=== PATIENT | female | born 1945 | race Caucasian/White ===

== ENCOUNTER → 2016-09-15 | Outpatient (REF) | payer MEDICARE | LOC: M LAB REF 13:04 | PROVIDERS: ATTEND Internal Medicine Nephrology | DX: R80.9 Proteinuria, unspecified (principal) ==

== ENCOUNTER 2020-07-13 15:33 | Observation (INO) | payer MEDICARE ==
[~2020-07-13] VITALS: Ht 172.7 cm; Wt 98.7 kg
[2020-07-13] MEDS ORDERED: OMEP40CA97 PO (15:49)
[2020-07-13] MEDS ORDERED: BISO5TAB14 PO (15:49)
[2020-07-13] MEDS ORDERED: JARD1TAB PO (15:49)
[2020-07-13] MEDS ORDERED: ATOR40TA75 PO (15:49)
[2020-07-13] MEDS ORDERED: HYDR25TAB PO (15:49)
[2020-07-13] MEDS ORDERED: ACCU40TA PO ×2 (15:49)
[2020-07-13] MEDS ORDERED: triseba SQ (15:49)
[2020-07-13] MEDS ORDERED: DOXA1TAB67 PO (15:49)
[2020-07-13] MEDS ORDERED: LEVO750T13 PO (15:49)
[2020-07-13] MEDS ORDERED: SERT25TA21 PO (15:49)
[2020-07-13 16:25] LABS: HEMOGLOBIN 14.1 g/dl (12.0-15.5); MEAN CORPUSCULAR HEMOGLOBIN 29.7 pg (27.0-33.0); MEAN CORPUSCULAR HGB CONC 32.8 g/dl (32.0-36.5); MEAN CORPUSCULAR VOLUME 90.7 fl (80.0-96.0); PLATELET COUNT, AUTOMATED 172 10^3/uL (150-450); RED BLOOD COUNT 4.74 10^6/uL (4.00-5.40); WHITE BLOOD COUNT 8.8 10^3/uL (4.0-10.0)
--- OUTSIDE RECORDS SUMMARY | 2020-07-13 16:35 | CCD | Continuity of Care Document ---
Author Author Tova SANDERS D.O. Organization Unknown Address 3 [facility] 3 [place] [address] Phone [phone] Problems Active Problems Provider Date Type 2 diabetes mellitus Onset: 12/02/19 01 Benign essential hypertension Natan Reyes M.D. Onset: 0 09/07/2004 Hyperlipidemia Onset: 12/01/2000 Psoriasis Onset: 12/01/2000 Gastroesophageal reflux disease Natan Reyes M.D. Onset: 12/01/2000 Moderate recurrent major depression Natan Reyes M.D. On set: 10/03/2006 Allergic rhinitis Natan Reyes M.D. Onset: 12/01/2000 Generalized anxiety disorder Natan Reyes M.D. Onset: Panic disorder without agoraphobia Natan Reyes M.D. Ons et: 04/25/2008 Essential hypertension Vianey Barrera FNP- Onset: 015 Psoriatic dactylitis Vianey Barrera [facility]- Onset: 5 Major depressive disorder, recurrent, severe with psyc hotic symptoms Vianey Barrera FNP-JOLENE Onset: 04/24/2015 Diverticulosis of colon without diverticulitis Elvis pham D.O., FAAFP Onset: 02/22/2017 Nonproliferative diabetic retinopathy Elvis Sanders D.O., FAAFP Onset: 09/18/2018 Note: ou Colonoscopy Elvis Sanders D.O., FAAFP Onset: 01/2019 Note: DECLINED HOWEVER NORMAL COLOGUA RD Social History Type Date Description Comments Sex Unknown ETOH Use alcohol use: never used Recreational Drug Use Denies Drug Use Tobacco Use Start: Unknown Patient has never smoked Smoking Status Reviewed: 02/14/20 Patient has never smoked Allergies, Adverse Reactions, Alerts Description No Known Drug Allergies Medications Active Medications SIG Qnty Indications Ordering Provide r Date Jardiance 10mg Tablets 1 by mouth every day 90tabs [facility]2019 B-D Pen NDL SHRT [id number](10/26) Dread 0 Use Daily With Levemir And Humalog 400units Elvis Sanders D.O., FAAFP 02/18/2019 Blood Glucose Test Strips use twice a day and as needed (dx: e11.9) 200units E11.9 Elvis Sanders D.O., FAAFP 12/18/2018 Tresiba Flextouch 20 0Unit/ML Solution Pen-Inject take 78 units twice daily 27ml Elvis Sanders D.O., FAAFP 08/21/2018 Bisoprolol Fumarate 5mg Tablets Take 1 Tablet By Mouth Every Day 30tabs [facility] 05/30/2017 Sertraline HCL 25mg Tablets take 1 tablet by mouth every day 90tabs Elvis Sanders D.O., FAAFP 07/30/2016 BD Pen Hooks Short/Ultrafine/31G X 5/1 6" 31G X 8 mm Misc for use daily with levimir and humalog dx: e11.9 4/day 400un its E11.9 Elvis Sanders D.O., FAAFP 11/22/2014 Accu-Chek Smartview Strips test 2 times a day and as needed e11.9 100units E11.9 Elvis Sanders D.O., F [facility] 09/18/2014 Lancets test bs bid and prn if indicated 300units Vianey Reno [employer]-[facility] 04/25/[address] Take 1 Capsule By Mouth Every Morning. Maximum Daily Dose Is 1 90caps Elvis Sanders D.O., FAAFP 11/20/2012 Atorvastatin Calcium 40mg Tablets Take 1 Tablet By Mouth Every Day. Maximum Daily Dose Is 1. Maximum Daily Dose Is 1 90tabs Elvis Sanders D.O., FAAFP 11/10/2012 Quinapril HCL 40mg Tablets take 1 and 1/2 tablets by mouth every day 135tabs Elvis Sanders D.O. , [facility] 10/23/2012 Hydrochlorothiazide 25mg Tablets Take 1 Tablet By Mouth Every Day. Maximum Daily Dose Is 1. Maximum Daily Dose Is 1 90tabs Elvis Sanders D.O., [facility] 10/09/2012 Doxazosin Mesylate 8mg Tablets take 1 tablet by mouth once daily mdd 1 30tabs Elvis Sanders D.O., [facility] 10/09/2012 Medications Administered in Office Medication SIG Qnty Indications Ordering Provider Date Injection (SC)/(Im) Injection Vianey Barrera [facility] 10/23/2012 Injection (SC)/(Im) Injection Vianey Barrera [facility] 04/20/2012 Injection (SC)/(Im) Injection Vianey Barrera [facility] 03/25/2011 Injection (SC)/(Im) Injection Vianey Barrera [facility] 03/02/2010 Injection (SC)/(Im) Injection Natan Reyes M.D. 03/19/2009 Injection Subcutaneous Or Intramuscular Injection Elvis Sanders D.O., [facility] 03/26/2008 Injection Subcutaneous Or Intramuscular Injection Kiko Aguilar [facility] 01/17 Injection Subcutaneous Or Intramuscular Injection Natan Reyes M.D. 2006 Injection Subcutaneous Or Intramuscular Injection Elvis Sanders D.O., [facility] 04/26/2006 Injection (SC)/(Im) Injection Pierce Inman, DO 03/23/2005 Injection (SC)/(Im) Injection Pierce Inman, DO 03/23/2005 Injection (SC)/(Im) Injection Pierce Inman, DO 03/24/2004 Injection (SC)/(Im) Injection Elvis Sanders D.O., [facility] 04/10/2002 Injection (SC)/(Im) Injection Natan Reyes M.D. 03/15/2001 Immunizations CPT Code Status Date Vaccine Lot # [id number] Given 02/27/2020 Influenza Virus Vaccine, Quadrivalent, Slit Virus, Im Use 3Y & Up [id number] 07557 Given 02/22/2017 Influenza Virus Vaccine, Quadrivalent, Slit Virus, Im Use 3Y & Up [id number] Q2037 Given 02/20/2014 Influenza Vaccin e (Fluvirin) 3Yrs Of Age Or Older Medicare Plans 48080 Given 02/20/2014 Influenza Virus Vac. Split Virus Individuals 3 Years And Above [id number] 55370 Given 03/02/2013 Influenza Vaccin e (Fluzone) 3Yrs Of Age Or Older Medicare Plans 41298 Given 03/02/2013 Influenza Virus Vac. Split Virus Individuals 3 Years And Above [id number] 87041 Given 10/23/2012 [id number] 8[address] Given 04/20/2012 Influenza Vaccin e (Fluzone) 3Yrs Of Age Or Older Medicare Plans 80308 Given 04/20/2012 Influenza Virus Vac. Split Virus Individuals 3 Years And Above [id number] 88130 Given 03/25/2011 Influenza Vaccin e (Fluzone) 3Yrs Of Age Or Older Medicare Plans 09852 Given 03/25/2011 Influenza Virus Vac. Split Virus Individuals 3 Years And Above [id number] 31908 Given 03/02/2010 Influenza Virus Vac. Split Virus Individuals 3 Years And Above 16251 Given 03/19/2009 Influenza Virus Vac. Split Virus Individuals 3 Years And Above [id number] 19323 Given 03/26/2008 Influenza Virus Vac. Split Virus Individuals 3 Years And Above [id number] 01754 Given 03/28/2007 Influenza Virus Vac. Split Virus Individuals 3 Years And Above [id number] 62346 Given 04/26/2006 Influenza Virus Vac. Split Virus Individuals 3 Years And Above 58007 Given 03/23/2005 Pneumococcal Immunization 21944 Given 03/23/2005 Influenza Virus Vac. Split Virus Individuals 3 Years And Above 86180 Given 03/24/2004 Influenza Virus Vac. Split Virus Individuals 3 Years And Above 49134 Given 04/10/2002 Influenza Virus Vac. Whole V irus 85052 Given 04/10/2002 Influenza Virus Vac. Split Virus Individuals 3 Years And Above 13388 Given 03/15/2001 Influenza Immunization 93461 Given 04/07/2000 Influenza Immunization 14900 Given 04/01/1999 Influenza Immunization 24604 Given 04/23/1998 Pneumococcal Immunization 93100 Given 04/23/1998 Influenza Immunization 07198 Given 05/06/1997 Influenza Immunization Vital Signs Date Vital Result Comment 06/18/2020 9:14am BP Systolic 102 mmHg BP Diastolic 52 mmHg Body Temperature 97.9 F Heart Rate 90 /min Respiratory Rate 18 /min Height 66 inches 5'6" Weight 221.00 lb [place] Body Weight 130 lb BMI (Body Mass Index) 35.7 kg/m2 O2 % BldC Oximetry 96 % 04/23/2020 4:14pm BP Systolic 124 mmHg BP Diastolic 64 mmHg Body Temperature 98.2 F Heart Rate 68 /min Respiratory Rate 16 /min Height 66 inches 5'6" Weight 223.00 lb [place] Body Weight 130 lb BMI (Body Mass Index) 36.0 kg/m2 O2 % BldC Oximetry 97 % (AT Rest), (Room Air ) Results Test Acquired Date Facility Test Result H/L Range Note Microalb/Creat Ratio 06/18/2020 [facility] Alb 10 mg/L 1 - 30 Creatinine, Urine 50 mg/dL 10 - 300 A/C Ratio <30 mg/g % Laboratory test finding 06/18/2020 [place] [address] [phone] Hgba1c 8.8 % High 4.4 - 6.1 1 CBC 06/18/2020 [facility] WBC 7.6 10E3/uL 4.1 - 10.9 2 RBC 4.60 10E6/uL 4.20 - 6.30 HGB 14.0 g/dL 12.0 - 18.0 HCT 42.7 % 37.0 - 51.0 MCV 92.8 fL 80.0 - 97.0 MCH 30.4 pg 26.0 - 32.0 MCHC 32.8 g/dL 31.0 - 36.0 PLT 198 10E3/uL 140 - 440 RDW-CV 13.4 % 11.5 - 14.5 Lym% 22.8 % 10.0 - 58.5 Neut% 66.9 % 37.0 - 92.0 MXD% 10.3 % 0.1 - 24.0 Lym# 1.7 10E3/uL 0.6 - 4.1 Neut# 5.1 % 2.0 - 7.8 MXD# 0.8 10E3/uL 0.0 - 1.8 MPV 11.2 fL 9.0 - 13.0 CMP 06/18/2020 [facility] Glu 194 mg/dL High 70 - 110 BUN 26 mg/dL High 8 - 23 Creat 1.2 mg/dL High 0.5 - 1.0 BUN/Creatinine Ratio 22.5 CALC Na 140 mmol/L 136 - 145 K 4.3 mmol/L 3.5 - 5.1 CL 107.5 mmol/L High 98.0 - 107.0 Co2 24.6 mmol/L 22.0 - 29.0 CA 8.6 mg/dL 8.6 - 10.2 TP 6.2 g/dL Low 6.6 - 8.7 Alb 3.9 g/dL 3.4 - 4.8 A/G Ratio 1.6 CALC Globulin 2.4 CALC Alp 68.2 U/L 35 - 129 Alt (SGPT) 16 U/L 0 - 41 Ast (Sgot) 16 U/L 0 - 40 Tbili 0.39 mg/dL 0.0 - 1.2 Osmolality-Calculated 290.0 CALC Anion Gap 12 mmol/L eGFR 51 # Calc 3 eGFR Non-Afr. Palestinian 44 # Calc 4 Laboratory test finding 06/18/2020 [facility] CK 121 U/L 26 - 192 Lipid Panel 06/18/2020 [facility] Chol 146 mg/dL 0 - 200 Trig 142 mg/dL 40 - 200 HDL 41 mg/dL Low 45 - 65 LDL_C 77 Calc 75 - 129 Cho/HDL Ratio 3.5 CALC U/A DIP 06/18/2020 [facility] Color lt yellow QUAL Clarity clear QUAL Glucose-Ua >=1000 g/dL Abnormal Negative Bilirubin,Urine Negative QUAL Negative Ketone Negative mg/dL Negative Blood - Ua Negative QUAL Negative pH 5.5 # 5.0 - 8.0 Protein Negative mg/dL Negative Urobilinogen 0.2 NA 0.2 - 1.0 Nitrite Negative QUAL Negative Leukocyte Negative QUAL Negative CBC 03/11/2020 [facility] WBC 7.0 10E3/uL 4.1 - 10.9 RBC 4.55 10E6/uL 4.20 - 6.30 HGB 13.9 g/dL 12.0 - 18.0 HCT 41.5 % 37.0 - 51.0 MCV 91.2 fL 80.0 - 97.0 MCH 30.5 pg 26.0 - 32.0 MCHC 33.5 g/dL 31.0 - 36.0 PLT 203 10E3/uL 140 - 440 RDW-CV 13.6 % 11.5 - 14.5 Lym% 27.9 % 10.0 - 58.5 Neut% 61.3 % 37.0 - 92.0 MXD% 10.8 % 0.1 - 24.0 Lym# 2.0 10E3/uL 0.6 - 4.1 Neut# 4.2 % 2.0 - 7.8 MXD# 0.8 10E3/uL 0.0 - 1.8 MPV 10.8 fL 9.0 - 13.0 CMP 03/11/2020 [facility] Glu 188 mg/dL High 70 - 110 BUN 18 mg/dL 8 - 23 Creat 0.9 mg/dL 0.5 - 1.0 BUN/Creatinine Ratio 20.5 CALC Na 139 mmol/L 136 - 145 K 4.8 mmol/L 3.5 - 5.1 CL 103.6 mmol/L 98.0 - 107.0 Co2 27.5 mmol/L 22.0 - 29.0 CA 9.3 mg/dL 8.6 - 10.2 TP 6.5 g/dL Low 6.6 - 8.7 Alb 4.0 g/dL 3.4 - 4.8 A/G Ratio 1.6 CALC Globulin 2.5 CALC Alp 72.6 U/L 35 - 129 Alt (SGPT) 18 U/L 0 - 41 Ast (Sgot) 19 U/L 0 - 40 Tbili 0.56 mg/dL 0.0 - 1.2 Osmolality-Calculated 284.8 CALC Anion Gap 13 mmol/L eGFR 72 # Calc 5 eGFR Non-Afr. Palestinian 63 # Calc 6 Laboratory test finding 03/11/2020 [facility] CK 147 U/L 26 - 192 Lipid Panel 03/11/2020 [facility] Chol 165 mg/dL 0 - 200 Trig 115 mg/dL 40 - 200 HDL 48 mg/dL 45 - 65 LDL_C 94 Calc 75 - 129 Cho/HDL Ratio 3.5 CALC U/A DIP 03/11/2020 [facility] Color yellow QUAL Clarity clear QUAL Glucose-Ua Negative g/dL Negative Bilirubin,Urine Negative QUAL Negative Ketone Negative mg/dL Negative Blood - Ua Trace-intact QUAL Abnormal Negative pH 5.5 # 5.0 - 8.0 Protein Negative mg/dL Negative Urobilinogen 0.2 NA 0.2 - 1.0 Nitrite Negative QUAL Negative Leukocyte Small QUAL Abnormal Negative RBC-Ua 0-4/HPF # Abnormal 0 - 3 Epithelial Cells - Ua 3-5/LPF QUAL Bacteria - Ua few QUAL Abnormal Negative WBC-Ua 5-10/HPF #/HPF Abnormal 0 - 5 Comment QNS FOR CX NA Renal Epithelial Cells RARE QUAL Abnormal Negative Laboratory test finding 03/11/2020 [place], [place] [id number] [phone] Hgba1c 8.7 % High 4.4 - 6.1 7 1 {A1] {HB] 2 NORMAL RANGES Age WBC RBC HGB HCT MCV PLT Adult M 4.1-10.9 4.20-6.30 12.0-18.0 37.0-51.0 80-97 140-440 Adult F 4.1-10.9 4.04-5.48 12.0-18.0 37.0-51.0 80-97 140-440 0 -1 Yr 5.0-20.0 3.9-5.9 15-18 MV: 44 MV: 91 MV: 277 2-9 Yr. 6.0-17.0 3.8-5.4 11-13 MV: 37 MV: 78 MV: 300 10 Yrs. 5.0-13.0 3.8-5.4 12-15 MV: 39 MV: 80 MV: 250 NOTE: * FOR ADULT BLACK MALES AND FEMALES, NORMAL WBC IS 2.9-7.7 K/ML * FOR ADULT BLACK MALES AND FEMALES, NORMAL RBC,HGB, AND HCT IS 5% LESS SOURCE FOR DATA: [employer] 1800 OPERATION MANUAL( AUTOMATED BLOOD COUNTS AND DIFF.) APPENDIX B-3 CHRONIC KIDNEY DISEASE STAGING PER NKF: MALE GFR INTERPRETATION: 20-49 YRS: >60 mL/min Normal 50-59 YRS: >56 mL/min Normal 60-69 YRS: >49 mL/min Normal 70-79 YRS: >42 mL/min Normal 80 and above >35 mL/min Normal FEMALE GRF INTERPRETATION: 20-39 YRS: >60 mL/min Normal 40-49 YRS: >58 mL/min Normal 50-59 YRS: >51 mL/min Normal 60-69 YRS: >45 mL/min Normal 70-79 YRS: >39 mL/min Normal 80 and above >32 mL/min NormalCLASSIFICATION CHOLESTEROL FOR ADULTS CHILDREN/ADOLESCENTS* DESIRABLE: <200 MG/DL <170 MG/DL BORDER-LINE HIGH RISK: 200-239 MG/DL 170-199 MG/DL HIGH RISK: >240 MG/DL >200 MG/DL CLASS. FOR PRIMARY LDL CHOL PREVENTION: LDL CHOL-CHILD/ADOLESCENTS* DESIRABLE: <130 MG/DL <110 MG/DL BORDERLINE-HIGH RISK: 130-159 MG/DL 110-129 MG/DL HIGH RISK: >160 MG/DL >130 MG/DL *CHILDREN AND ADOLESCENTS REPRESENTS INDIVIDUALA AGED 2-19 YEARS EXCLUSIVE. 3 CKD-EPI 4 CKD-EPI 5 CKD-EPI 6 CKD-EPI 7 {A1] {HB] Procedures Description No Information Available Medical Devices Description No Information Available Encounters Type Date Location Provider Dx Diagnosis Office Visit 06/18/2020 9:00a [place] [facility] Tyshawn Tai, FAAFP Z00.01 Encounter for general adult medical exam w abnormal findings E11.9 Type 2 diabetes mellitus wit hout complications Z79.4 detention (current) use of i nsulin I10 Essential (primary) hyperten felicitas E78.5 Hyperlipidemia, unspecified F32.89 Other specified depressive e pisodes Office Visit 04/23/2020 4:15p [place] [facility] Vianey Barrera FNP-BC J30.9 Allergic rhinitis, unspecified Office Visit 03/18/2020 9:20a [place] [facility] Tyshawn Tai, FAAFP Z79.4 intermission coordinator (current) use of insulin E11.9 Type 2 diabetes mellitus wit hout complications I10 Essential (primary) hyperten felicitas E78.5 Hyperlipidemia, unspecified Office Visit 01/30/2020 9:15a [place] [facility] Tyshawn Tai, FAAFP Z00.01 Encounter for general adult medical exam w abnormal findings E11.9 Type 2 diabetes mellitus wit hout complications I10 Essential (primary) hyperten felicitas Z79.4 detention (current) use of i nsulin F32.89 Other specified depressive e pisodes Office Visit 12/28/2019 9:30a [place] [facility] Jorge A Bee PA E11.9 Type 2 diabetes mellitus without complic ations Z79.84 detention (current) use of o ral hypoglycemic drugs Assessments Date Code Description Provider 06/18/2020 Z00.01 Encounter for [facility] adult medical examination with abnormal findings Elvis Sanders D.O., [facility] 06/18/2020 E11.9 Type 2 diabetes mellitus without complications Elvis Sanders D.O., FAA 06/18/2020 Z79.4 detention (current) use of insul in Elvis Sanders D.O., FAAFP 06/18/2020 I10 Essential (primary) hypertension Elvis Sanders D.O., FAAFP 06/18/2020 E78.5 Hyperlipidemia, unspecified Sujit Sanders D.O., FAAFP 06/18/2020 F32.89 Other specified depressive episo bibiana Elvis Sanders D.O., FAAFP 04/23/2020 J30.9 Allergic rhinitis, unspecified R Vianey patiño, [facility] 03/18/2020 Z79.4 intermission coordinator (current) use of insul in Elvis Sanders D.O., FAAFP 03/18/2020 E11.9 Type 2 diabetes mellitus without complications Elvis Sanders D.O., [facility] 03/18/2020 I10 Essential (primary) hypertension Elvis Sanders D.O., [facility] 03/18/2020 E78.5 Hyperlipidemia, unspecified Sujit Sanders D.O., [facility] 03/11/2020 E11.9 Type 2 diabetes mellitus without complications Elvis Sanders D.O., [facility] 03/11/2020 E78.5 Hyperlipidemia, unspecified Sujit Sanders D.O., [facility] 03/11/2020 I10 Essential (primary) hypertension Elvis Sanders D.O., [facility] 02/27/2020 Z23 Encounter for immunization Ryder Sanders D.O., FAAFP 01/30/2020 Z00.01 Encounter for genera l adult medical examination with abnormal findings Elvis Sanders D.O., FAAFP 01/30/2020 E11.9 Type 2 diabetes mellitus without complications Elvis Sanders D.O., [facility] 01/30/2020 I10 Essential (primary) hypertension Elvis Sanders D.O., FAAFP 01/30/2020 Z79.4 detention (current) use of insul in Elvis Sanders D.O., FAAFP 01/30/2020 F32.89 Other specified depressive episo bibiana Elvis Sanders D.O., FAAFP 12/28/2019 E11.9 Type 2 diabetes mellitus without complications Michelle Bee PA 12/28/2019 Z79.84 detention (current) use of oral hypoglycemic drugs Michelle Bee PA Plan of Treatment Future Appointment(s):* 09/22/2020 8:30 am - Elvis Sanders D.O., [facility] at [facility] Functional Status Description No Information Available Mental Status Description No Information Available Referrals Description No Information Available
--- OUTSIDE RECORDS SUMMARY | 2020-07-13 16:35 | CCD | Continuity of Care Document ---
Author Author Tova SANDERS D.O. 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 11/2019 B-D Pen NDL SHRT [id number](10/26) Dread 0 Use Daily With Levemir And Humalog 400units [facility] 02/18/2019 Blood Glucose Test Strips use twice a day and as needed (dx: e11.9) 200units E11.9 [facility]., [facility] 12/18/2018 Tresiba Flextouch 20 0Unit/ML Solution Pen-Inject take 75 units twice daily(new dose) maximum daily dose is 15 0 units 27ml [facility]., [facility] 08/21/2018 Bisoprolol Fumarate 5mg Tablets Take 1 Tablet By Mouth Every Day 30tabs Elvis Sanders D.O., [facility] 05/30/2017 Sertraline HCL 25mg Tablets take 1 tablet by mouth every day 90tabs [facility]., [facility] 07/30/2016 BD Pen [place] Short/Ultrafine/31G X 5/1 6" 31G X 8 mm Misc for use daily with levimir and humalog dx: e11.9 4/day 400un its E11.9 [facility]., [facility] 11/22/2014 Accu-Chek Smartview Strips test 2 times a day and as needed e11.9 100units E11.9 Elvis Sanders D.O., [facility] 09/18/2014 Lancets test bs bid and prn if indicated 300units Vianey Reno [facility]- 04/25/[address] Take 1 Capsule By Mouth Every Morning. Maximum Daily Dose Is 1 90caps Elvis Sanders D.O., [facility] 11/20/2012 Atorvastatin Calcium 40mg Tablets Take 1 Tablet By Mouth Every Day. Maximum Daily Dose Is 1. Maximum Daily Dose Is 1 90tabs Elvis Sanders D.O., [facility] 11/10/2012 Quinapril HCL 40mg Tablets take 1 and 1/2 tablets by mouth every day 135tabs Elvis Sanders D.O. , [facility] 10/23/2012 Hydrochlorothiazide 25mg Tablets Take 1 Tablet By Mouth Every Day. Maximum Daily Dose Is 1. Maximum Daily Dose Is 1 90tabs Elvis Sanders D.O., [facility] 10/09/2012 Doxazosin Mesylate 8mg Tablets take 1 tablet by mouth once daily mdd 1 30tabs Elvis Sanders D.O., [facility] 10/09/2012 Medications Administered in Office Medication SIG Qnty Indications Ordering Provider Date Injection (SC)/(Im) Injection Vianey Barrera [facility] 10/23/2012 Injection (SC)/(Im) Injection Vianey Barrera [facility] 04/20/2012 Injection (SC)/(Im) Injection Vianey Barrera [facility] 03/25/2011 Injection (SC)/(Im) Injection Vianey Barrera [facility] 03/02/2010 Injection (SC)/(Im) Injection Natan Reyes M.D. 03/19/2009 Injection Subcutaneous Or Intramuscular Injection Elvis Sanders D.O., [facility] 03/26/2008 Injection Subcutaneous Or Intramuscular Injection Kiko Aguilar [facility] 01/17 Injection Subcutaneous Or Intramuscular Injection Natan Reyes M.D. 2006 Injection Subcutaneous Or Intramuscular Injection Elvis Sanders D.O., [facility] 04/26/2006 Injection (SC)/(Im) Injection Pierce Inman, DO 03/23/2005 Injection (SC)/(Im) Injection Pierce Inman, DO 03/23/2005 Injection (SC)/(Im) Injection Pierce Inman, DO 03/24/2004 Injection (SC)/(Im) Injection Elvis Sanders D.O., [facility] 04/10/2002 Injection (SC)/(Im) Injection Natan Reyes M.D. 03/15/2001 Immunizations CPT Code Status Date Vaccine Lot # 51496 Given 02/27/2020 Influenza Virus Vaccine, Quadrivalent, Slit Virus, Im Use 3Y & Up [id number] 43320 Given 02/22/2017 Influenza Virus Vaccine, Quadrivalent, Slit Virus, Im Use 3Y & Up [id number] Q2037 Given 02/20/2014 Influenza Vaccin e (Fluvirin) 3Yrs Of Age Or Older Medicare Plans 44919 Given 02/20/2014 Influenza Virus Vac. Split Virus Individuals 3 Years And Above [id number] 16928 Given 03/02/2013 Influenza Vaccin e (Fluzone) 3Yrs Of Age Or Older Medicare Plans 83175 Given 03/02/2013 Influenza Virus Vac. Split Virus Individuals 3 Years And Above [id number] 20964 Given 10/23/[address] [id number] 92222 Given 04/20/2012 Influenza Vaccin e (Fluzone) 3Yrs Of Age Or Older Medicare Plans 97402 Given 04/20/2012 Influenza Virus Vac. Split Virus Individuals 3 Years And Above [id number] 51038 Given 03/25/2011 Influenza Vaccin e (Fluzone) 3Yrs Of Age Or Older Medicare Plans 60743 Given 03/25/2011 Influenza Virus Vac. Split Virus Individuals 3 Years And Above [id number] 74246 Given 03/02/2010 Influenza Virus Vac. Split Virus Individuals 3 Years And Above 32849 Given 03/19/2009 Influenza Virus Vac. Split Virus Individuals 3 Years And Above [id number] 19431 Given 03/26/2008 Influenza Virus Vac. Split Virus Individuals 3 Years And Above [id number] 18821 Given 03/28/2007 Influenza Virus Vac. Split Virus Individuals 3 Years And Above [id number] 14753 Given 04/26/2006 Influenza Virus Vac. Split Virus Individuals 3 Years And Above 50884 Given 03/23/2005 Pneumococcal Immunization 33395 Given 03/23/2005 Influenza Virus Vac. Split Virus Individuals 3 Years And Above 08526 Given 03/24/2004 Influenza Virus Vac. Split Virus Individuals 3 Years And Above 66245 Given 04/10/2002 Influenza Virus Vac. Whole V irus 60515 Given 04/10/2002 Influenza Virus Vac. Split Virus Individuals 3 Years And Above 95333 Given 03/15/2001 Influenza Immunization 29075 Given 04/07/2000 Influenza Immunization 29624 Given 04/01/1999 Influenza Immunization 39760 Given 04/23/1998 Pneumococcal Immunization 53515 Given 04/23/1998 Influenza Immunization 17141 Given 05/06/1997 Influenza Immunization Vital Signs Date Vital Result Comment 06/18/2020 9:14am BP Systolic 102 mmHg BP Diastolic 52 mmHg Body Temperature 97.9 F Heart Rate 90 /min Respiratory Rate 18 /min Height 66 inches 5'6" Weight 221.00 lb [place] Body Weight 130 lb BMI (Body Mass Index) 35.7 kg/m2 O2 % BldC Oximetry 96 % 04/23/2020 4:14pm BP Systolic 124 mmHg BP Diastolic 64 mmHg Body Temperature 98.2 F Heart Rate 68 /min Respiratory Rate 16 /min Height 66 inches 5'6" Weight 223.00 lb [place] Body Weight 130 lb BMI (Body Mass Index) 36.0 kg/m2 O2 % BldC Oximetry 97 % (AT Rest), (Room Air ) Results Test Acquired Date Facility Test Result H/L Range Note Laboratory test finding 06/18/2020 [place] [id number] [phone] Hgba1c <pending> CBC 03/11/2020 [facility] WBC 7.0 10E3/uL 4.1 - 10.9 1 RBC 4.55 10E6/uL 4.20 - 6.30 HGB [...] Gap 13 mmol/L eGFR 72 # Calc 2 eGFR Non-Afr. Somali 63 # Calc 3 Laboratory test finding 03/11/2020 [facility] CK 147 [...] QUAL Abnormal Negative Laboratory test finding 03/11/2020 [place] [address] [phone] Hgba1c 8.7 % High 4.4 - 6.1 4 1 NORMAL RANGES Age WBC RBC HGB HCT [...] HCT IS 5% LESS SOURCE FOR DATA: [employer] 1800 OPERATION MANUAL( AUTOMATED BLOOD COUNTS AND [...] ADOLESCENTS REPRESENTS INDIVIDUALA AGED 2-19 YEARS EXCLUSIVE. 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 I10 Essential (primary) hyperten felicitas E78.5 Hyperlipidemia, unspecified F32.89 Other specified depressive e pisodes Office Visit 04/23/2020 4:15p [place] [facility] Vianey Barrera FNP-BC J30.9 Allergic rhinitis, unspecified Office Visit 03/18/2020 9:20a [place] [facility] Elvis Sanders D.O ., FAAFP 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.4 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 project 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 E11.9 Type 2 diabetes mellitus wit hout complications I10 Essential (primary) hyperten felicitas E78.5 Hyperlipidemia, unspecified Office Visit 01/30/2020 9:15a [place] [facility] Dennis Tai.O ., FAAFP Z00.01 Encounter for general adult medical exam w abnormal findings E11.9 Type 2 diabetes mellitus wit hout complications I10 Essential (primary) hyperten felicitas Z79.4 jail (current) use of i nsulin F32.89 Other specified depressive e pisodes Office Visit 12/28/2019 9:30a [place] [facility] Jorge A Bee, PA E11.9 Type 2 diabetes mellitus without complic ations Z79.84 jail (current) use of o ral hypoglycemic drugs Assessments Date Code Description Provider 06/18/2020 Z00.01 Encounter for genera l adult medical examination with abnormal findings Elvis Sanders D.O., [facility] 06/18/2020 E11.9 Type 2 diabetes mellitus without complications Elvis Sanders D.O., [facility] 06/18/2020 Z79.4 jail (current) use of insul in Elvis Sanders D.O., [facility] 06/18/2020 I10 Essential (primary) hypertension Elvis Sanders D.O., [facility] 06/18/2020 E78.5 Hyperlipidemia, unspecified Sujit Sanders D.O., [facility] 06/18/2020 F32.89 Other specified depressive episo bibiana Elvis Sanders D.O., [facility] 04/23/2020 J30.9 Allergic rhinitis, unspecified R Vianey patiño, [facility] 03/18/2020 Z79.4 jail (current) use of insul in Elvis Sanders D.O., [facility] 03/18/2020 E11.9 Type 2 diabetes mellitus without complications Elvis Sanders D.O., [facility] 03/18/2020 I10 Essential (primary) hypertension Elvis Sanders D.O., [facility] 03/18/2020 E78.5 Hyperlipidemia, unspecified Sujit Sanders D.O., [facility] 03/11/2020 E11.9 Type 2 diabetes mellitus without complications Elvis Sanders D.O., [facility] 03/11/2020 E78.5 Hyperlipidemia, unspecified [facility] D.O., [facility] 03/11/2020 I10 Essential (primary) hypertension Elvis Sanders D.O., [facility] 02/27/2020 Z23 Encounter for immunization Ryder Sanders D.O., [facility] 01/30/2020 Z00.01 Encounter for genera l adult medical examination with abnormal findings Elvis Sanders D.O., [facility] 01/30/2020 E11.9 Type 2 diabetes mellitus without complications Elvis Sanders D.O., [facility] 01/30/2020 I10 Essential (primary) hypertension Elvis Sanders D.O., [facility] 01/30/2020 Z79.4 jail (current) use of insul in Elvis Sanders D.O., [facility] 01/30/2020 F32.89 Other specified depressive episo bibiana Elvis Sanders D.O., [facility] 12/28/2019 E11.9 Type 2 diabetes mellitus without complications Michelle Bee PA 12/28/2019 Z79.84 jail (current) use of oral hypoglycemic drugs Michelle Bee PA Plan of Treatment No Information Available Functional Status Description No Information Available Mental Status Description No Information Available Referrals Description No Information Available
--- OUTSIDE RECORDS SUMMARY | 2020-07-13 16:35 | CCD | Continuity of Care Document ---
Author Author Tova SANDERS D.O. Organization Unknown Address 3 [facility] 3 [place] [address] Phone [phone] Problems Active Problems Provider Date Type 2 [...] FNP- Onset: 015 Psoriatic dactylitis Vianey Barrera [facility]- Onset: 5 Major depressive disorder, recurrent, severe [...] mouth every day 90tabs Elvis Sanders D.O., [facility] 11/2019 B-D Pen NDL SHRT [id number](10/26) Dread 0 Use Daily With Levemir And Humalog 400units [facility] 02/18/2019 Blood Glucose Test Strips use twice a day and as needed (dx: e11.9) 200units E11.9 [facility] 12/18/2018 Tresiba Flextouch 20 0Unit/ML Solution Pen-Inject take 75 units twice daily(new dose) maximum daily dose is 15 0 units 27ml [facility] 08/21/2018 Bisoprolol Fumarate 5mg Tablets Take 1 Tablet By Mouth Every Day 30tabs Elvis Sanders D.O., [facility] 05/30/2017 Sertraline HCL 25mg Tablets take 1 tablet by mouth every day 90tabs [facility] 07/30/2016 BD Pen [place] Short/Ultrafine/31G X 5/1 6" 31G X 8 mm Misc for use daily with levimir and humalog dx: e11.9 4/day 400un its E11.9 [facility] 11/22/2014 Accu-Chek Smartview Strips test 2 times a day and as needed e11.9 100units E11.9 Elvis Sanders D.O., [facility] 09/18/2014 Lancets test bs bid and prn if indicated 300units Vianey Reno [facility]- 04/25/[address] Take 1 Capsule By Mouth Every Morning. Maximum Daily Dose Is 1 90caps Elvis Sanders D.O., [facility] 11/20/2012 Atorvastatin Calcium 40mg Tablets Take 1 Tablet By Mouth Every Day. Maximum Daily Dose Is 1. Maximum Daily Dose Is 1 90tabs Elvis Sanders D.O., [facility] 11/10/2012 Quinapril HCL 40mg Tablets take 1 and 1/2 tablets by mouth every day 135tabs Elvis Sanders D.O. , [facility] 10/23/2012 Hydrochlorothiazide 25mg Tablets Take 1 Tablet By Mouth Every Day. Maximum Daily Dose Is 1. Maximum Daily Dose Is 1 90tabs Elvis Sanders D.O., [facility] 10/09/2012 Doxazosin Mesylate 8mg Tablets take 1 tablet by mouth once daily mdd 1 30tabs Elvis Sanders D.O., [facility] 10/09/2012 Medications Administered in Office Medication SIG Qnty Indications Ordering Provider Date Injection (SC)/(Im) Injection Vianey Barrera [facility] 10/23/2012 Injection (SC)/(Im) Injection Vianey Barrera [facility] 04/20/2012 Injection (SC)/(Im) Injection Vianey Barrera [facility] 03/25/2011 Injection (SC)/(Im) Injection Vianey Barrera [facility] 03/02/2010 Injection (SC)/(Im) Injection Natan Reyes M.D. 03/19/2009 Injection Subcutaneous Or Intramuscular Injection Elvis Sanders D.O., [facility] 03/26/2008 Injection Subcutaneous Or Intramuscular Injection Kiko Aguilar [facility] 01/17 Injection Subcutaneous Or Intramuscular Injection Natan Reyes M.D. 2006 Injection Subcutaneous Or Intramuscular Injection Elvis Sanders D.O., [facility] 04/26/2006 Injection (SC)/(Im) Injection Pierce Inman, DO 03/23/2005 Injection (SC)/(Im) Injection Pierce Inman, DO 03/23/2005 Injection (SC)/(Im) Injection Pierce Inman, DO 03/24/2004 Injection (SC)/(Im) Injection Elvis Sanders D.O., [facility] 04/10/2002 Injection (SC)/(Im) Injection Natan Reyes M.D. 03/15/2001 Immunizations CPT Code Status Date Vaccine Lot # [id number] Given 02/27/2020 Influenza Virus Vaccine, Quadrivalent, Slit Virus, Im Use 3Y & Up [id number] 82673 Given 02/22/2017 Influenza Virus Vaccine, Quadrivalent, Slit Virus, Im Use 3Y & Up [id number] Q2037 Given 02/20/2014 Influenza Vaccin e (Fluvirin) 3Yrs Of Age Or Older Medicare Plans 35142 Given 02/20/2014 Influenza Virus Vac. Split Virus Individuals 3 Years And Above [id number] 52258 Given 03/02/2013 Influenza Vaccin e (Fluzone) 3Yrs Of Age Or Older Medicare Plans 40948 Given 03/02/2013 Influenza Virus Vac. Split Virus Individuals 3 Years And Above [id number] 45116 Given 10/23/[address] [id number]60 Given 04/20/2012 Influenza Vaccin e (Fluzone) 3Yrs Of Age Or Older Medicare Plans 60932 Given 04/20/2012 Influenza Virus Vac. Split Virus Individuals 3 Years And Above [id number] 37917 Given 03/25/2011 Influenza Vaccin e (Fluzone) 3Yrs Of Age Or Older Medicare Plans 29128 Given 03/25/2011 Influenza Virus Vac. Split Virus Individuals 3 Years And Above [id number] 60535 Given 03/02/2010 Influenza Virus Vac. Split Virus Individuals 3 Years And Above 20830 Given 03/19/2009 Influenza Virus Vac. Split Virus Individuals 3 Years And Above [id number] 46667 Given 03/26/2008 Influenza Virus Vac. Split Virus Individuals 3 Years And Above [id number] 04446 Given 03/28/2007 Influenza Virus Vac. Split Virus Individuals 3 Years And Above [id number] 36181 Given 04/26/2006 Influenza Virus Vac. Split Virus Individuals 3 Years And Above 46974 Given 03/23/2005 Pneumococcal Immunization 31341 Given 03/23/2005 Influenza Virus Vac. Split Virus Individuals 3 Years And Above 86794 Given 03/24/2004 Influenza Virus Vac. Split Virus Individuals 3 Years And Above 77699 Given 04/10/2002 Influenza Virus Vac. Whole V irus 42529 Given 04/10/2002 Influenza Virus Vac. Split Virus Individuals 3 Years And Above 90354 Given 03/15/2001 Influenza Immunization 45204 Given 04/07/2000 Influenza Immunization 85215 Given 04/01/1999 Influenza Immunization 71283 Given 04/23/1998 Pneumococcal Immunization 03670 Given 04/23/1998 Influenza Immunization 12398 Given 05/06/1997 Influenza Immunization Vital Signs Date Vital Result Comment 06/18/2020 9:14am BP Systolic 102 mmHg BP Diastolic 52 mmHg Body Temperature 97.9 F Heart Rate 90 /min Respiratory Rate 18 /min Height 66 inches 5'6" Weight 221.00 lb [place] Body Weight 130 lb BMI (Body Mass Index) 35.7 kg/m2 O2 % BldC Oximetry 96 % 04/23/2020 4:14pm BP Systolic 124 mmHg BP Diastolic 64 mmHg Body Temperature 98.2 F Heart Rate 68 /min Respiratory Rate 16 /min Height 66 inches 5'6" Weight 223.00 lb [place] Body Weight 130 lb BMI (Body Mass Index) 36.0 kg/m2 O2 % BldC Oximetry 97 % (AT Rest), (Room Air ) Results Test Acquired Date Facility Test Result H/L Range Note CBC 03/11/2020 [facility] WBC 7.0 10E3/uL 4.1 [...] eGFR 72 # Calc 2 eGFR Non-Afr. Kyr[place]z 63 # Calc 3 Laboratory test finding [...] QUAL Abnormal Negative Laboratory test finding 03/11/2020 [place] [address] [phone] Hgba1c 8.7 % High 4.4 - 6.1 [...] HCT IS 5% LESS SOURCE FOR DATA: [employer] 1800 OPERATION MANUAL( AUTOMATED BLOOD COUNTS AND [...] Date Location Provider Dx Diagnosis Office Visit 04/23/2020 4:15p [place] [facility] Vianey Barrera 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 E11.9 Type 2 diabetes mellitus wit hout complications I10 Essential (primary) hyperten felicitas E78.5 Hyperlipidemia, unspecified Office Visit 01/30/2020 9:15a [facility] Tyshawn Tai, FAAFP Z00.01 Encounter for general adult medical exam w abnormal findings E11.9 Type 2 diabetes mellitus wit hout complications I10 Essential (primary) hyperten felicitas Z79.4 retirement (current) use of i nsulin F32.89 Other specified depressive e pisodes Office Visit 12/28/2019 9:30a [facility] Jorge A Bee PA E11.9 Type 2 diabetes mellitus without complic ations Z79.84 meterman (current) use of o ral hypoglycemic drugs Assessments Date Code Description Provider 04/23/2020 J30.9 Allergic rhinitis, unspecified R Vianey patiño FNP-BC 03/18/2020 Z79.4 retirement (current) use of insul in Elvis Sanders D.O., [facility] 03/18/2020 E11.9 Type 2 diabetes mellitus without complications Elvis Sanders D.O., [facility] 03/18/2020 I10 Essential (primary) hypertension Elvis Sanders D.O., [facility] 03/18/2020 E78.5 Hyperlipidemia, unspecified Sujit eth J. Fish, D.O., [facility] 03/11/2020 E11.9 Type 2 diabetes mellitus without complications Elvis Sanders D.O., [facility] 03/11/2020 E78.5 Hyperlipidemia, unspecified [facility] 03/11/2020 I10 Essential (primary) hypertension Elvis Sanders D.O., [facility] 02/27/2020 Z23 Encounter for immunization Ryder Sanders D.O., [facility] 01/30/2020 Z00.01 Encounter for genera l adult medical examination with abnormal findings Elvis Sanders D.O., [facility] 01/30/2020 E11.9 Type 2 diabetes mellitus without complications Elvis Sanders D.O., [facility] 01/30/2020 I10 Essential (primary) hypertension Elvis Sanders D.O., [facility] 01/30/2020 Z79.4 meterman (current) use of insul in Elvis Sanders D.O., [facility] 01/30/2020 F32.89 Other specified depressive episo bibiana Elvis Sanders D.O., [facility] 12/28/2019 E11.9 Type 2 diabetes mellitus without complications Michelle Bee PA 12/28/2019 Z79.84 meterman (current) use of oral hypoglycemic drugs Michelle Bee PA Plan of Treatment No Information Available Functional Status Description No Information Available Mental Status Description No Information Available Referrals Description No Information Available
--- OUTSIDE RECORDS SUMMARY | 2020-07-13 16:35 | CCD | Continuity of Care Document ---
Author Author Tova BARRERA Tony [facility] Organization Unknown Address [address] [facility] [address] [place] [address] Phone [phone] Problems Active Problems Provider Date Type 2 [...] Ons et: 04/25/2008 Essential hypertension Vianey Barrera [facility] Onset: 015 Psoriatic dactylitis Vianey Barrera [facility] Onset: 5 Major depressive disorder, recurrent, severe with psyc hotic symptoms Vianey Barrera [facility] Onset: 04/24/2015 Diverticulosis of colon without diverticulitis Elvis pham D.O., FAAFP Onset: 02/22/2017 Nonproliferative diabetic retinopathy Elvis Brown D.O., FAAFP Onset: 09/18/2018 Note: ou Colonoscopy Elvis Brown D.O., FAAFP Onset: 01/2019 Note: DECLINED HOWEVER [...] 1 by mouth every day 90tabs Elvis Brown D.O., [facility] 11/2019 B-D Pen NDL SHRT [id number](10/26) Dread 0 Use Daily With Levemir And Humalog 400units [facility] 02/18/2019 Blood Glucose Test Strips use twice a day and as needed (dx: e11.9) 200units E11.9 [facility] 12/18/2018 Tresiba Flextouch 20 0Unit/ML Solution Pen-Inject take 75 units twice daily(new dose) maximum daily dose is 15 0 units 27ml [facility] 08/21/2018 Bisoprolol Fumarate 5mg Tablets take 1 tablet by mouth every day 30tabs Elvis Brown D.O., [facility] 05/30/2017 Sertraline HCL 25mg Tablets take 1 tablet by mouth every day 90tabs [facility] 07/30/2016 BD Pen [place] Short/Ultrafine/31G X 5/1 6" 31G X 8 mm Misc for use daily with levimir and humalog dx: e11.9 4/day 400un its E11.9 [facility] Bronw [facility]., [facility] 11/22/2014 Accu-Chek Smartview Strips test 2 times a day and as needed e11.9 100units E11.9 Elvis Brown D.O., [facility] 09/18/2014 Lancets test bs bid and prn if indicated 300units Vianey Reno [facility]- 04/25/[address] Take 1 Capsule By Mouth Every Morning. Maximum Daily Dose Is 1 90caps [facility] 11/20/2012 Atorvastatin Calcium 40mg Tablets Take 1 Tablet By Mouth Every Day. Maximum Daily Dose Is 1. Maximum Daily Dose Is 1 90tabs Elvis Brown D.O., [facility] 11/10/2012 Quinapril HCL 40mg Tablets Take 1 And 1/2 Tablets By Mouth Every Day 135tabs Elvis Brown D.O. , [facility] 10/23/2012 Hydrochlorothiazide 25mg Tablets Take 1 Tablet By Mouth Every Day. Maximum Daily Dose Is 1. Maximum Daily Dose Is 1 90tabs Elvis Brown D.O., [facility] 10/09/2012 Doxazosin Mesylate 8mg Tablets take 1 tablet by mouth once daily mdd 1 30tabs Elvis Brown D.O., [facility] 10/09/2012 Medications Administered in Office Medication SIG Qnty Indications Ordering Provider Date Injection (SC)/(Im) Injection Vianey Barrera [facility] 10/23/2012 Injection (SC)/(Im) Injection Vianey Barrera [facility] 04/20/2012 Injection (SC)/(Im) Injection Vianey Barrera [facility] 03/25/2011 Injection (SC)/(Im) Injection Vianey Barrera [facility] 03/02/2010 Injection (SC)/(Im) Injection Natan Reyes M.D. 03/19/2009 Injection Subcutaneous Or Intramuscular Injection Elvis Brown D.O., [facility] 03/26/2008 Injection Subcutaneous Or Intramuscular Injection Kiko Aguilar [facility] 01/17 Injection Subcutaneous Or Intramuscular Injection Natan Reyes M.D. 2006 Injection Subcutaneous Or Intramuscular Injection Elvis Brown D.O., [facility] 04/26/2006 Injection (SC)/(Im) Injection Pierce Inman, DO 03/23/2005 Injection (SC)/(Im) Injection Pierce Inman, DO 03/23/2005 Injection (SC)/(Im) Injection Pierce Inman, DO 03/24/2004 Injection (SC)/(Im) Injection Elvis Brown D.O., [facility] 04/10/2002 Injection (SC)/(Im) Injection Natan Reyes M.D. 03/15/2001 Immunizations CPT Code Status Date Vaccine Lot # [id number] Given 02/27/2020 Influenza Virus Vaccine, Quadrivalent, Slit Virus, Im Use 3Y & Up [id number] 36931 Given 02/22/2017 Influenza Virus Vaccine, Quadrivalent, Slit Virus, Im Use 3Y & Up [id number] Q2037 Given 02/20/2014 Influenza Vaccin e (Fluvirin) 3Yrs Of Age Or Older Medicare Plans 06099 Given 02/20/2014 Influenza Virus Vac. Split Virus Individuals 3 Years And Above [id number] 05426 Given 03/02/2013 Influenza Vaccin e (Fluzone) 3Yrs Of Age Or Older Medicare Plans 33485 Given 03/02/2013 Influenza Virus Vac. Split Virus Individuals 3 Years And Above [id number] 33779 Given 10/23/[address] [place] [address] 9[address] Given 04/20/2012 Influenza Vaccin e (Fluzone) 3Yrs Of Age Or Older Medicare Plans 38502 Given 04/20/2012 Influenza Virus Vac. Split Virus Individuals 3 Years And Above [id number] 85858 Given 03/25/2011 Influenza Vaccin e (Fluzone) 3Yrs Of Age Or Older Medicare Plans 98603 Given 03/25/2011 Influenza Virus Vac. Split Virus Individuals 3 Years And Above [id number] 21073 Given 03/02/2010 Influenza Virus Vac. Split Virus Individuals 3 Years And Above 65464 Given 03/19/2009 Influenza Virus Vac. Split Virus Individuals 3 Years And Above [id number] 00563 Given 03/26/2008 Influenza Virus Vac. Split Virus Individuals 3 Years And Above [id number] 21597 Given 03/28/2007 Influenza Virus Vac. Split Virus Individuals 3 Years And Above [id number] 95524 Given 04/26/2006 Influenza Virus Vac. Split Virus Individuals 3 Years And Above 81218 Given 03/23/2005 Pneumococcal Immunization 01963 Given 03/23/2005 Influenza Virus Vac. Split Virus Individuals 3 Years And Above 67225 Given 03/24/2004 Influenza Virus Vac. Split Virus Individuals 3 Years And Above 60659 Given 04/10/2002 Influenza Virus Vac. Whole V irus 74621 Given 04/10/2002 Influenza Virus Vac. Split Virus Individuals 3 Years And Above 95135 Given 03/15/2001 Influenza Immunization 10323 Given 04/07/2000 Influenza Immunization 34800 Given 04/01/1999 Influenza Immunization 24997 Given 04/23/1998 Pneumococcal Immunization 07256 Given 04/23/1998 Influenza Immunization 26506 Given 05/06/1997 Influenza Immunization Vital Signs Date Vital Result Comment 04/23/2020 4:14pm BP Systolic 124 mmHg BP Diastolic 64 mmHg Body Temperature 98.2 F Heart Rate 68 /min Respiratory Rate 16 /min Height 66 inches 5'6" Weight 223.00 lb Yarnell Body Weight 130 lb BMI (Body Mass Index) 36.0 kg/m2 O2 % BldC Oximetry 97 % (AT Rest), (Room Air ) 03/18/2020 9:25am BP Systolic 120 mmHg BP Diastolic 62 mmHg Body Temperature 97.9 F Heart Rate 58 /min Respiratory Rate 16 /min Height 66 inches 5'6" Weight 225.00 lb Yarnell Body Weight 130 lb BMI (Body Mass Index) 36.3 kg/m2 O2 % BldC Oximetry 97 % Results Test Acquired Date Facility Test Result [...] eGFR 72 # Calc 2 eGFR Non-Afr. Citizen Of [place] 63 # Calc 3 Laboratory test finding [...] QUAL Abnormal Negative Laboratory test finding 03/11/2020 [place] [address] [phone] Hgba1c 8.7 % High 4.4 - 6.1 4 Laboratory test finding 12/17/2019 [place] [address] [phone] Hgba1c 9.6 % High 4.4 - 6.1 5 CBC 12/17/2019 [facility]/Inhouse WBC 7.9 10E3/uL 4.1 - 10.9 6 RBC 4.46 10E6/uL 4.20 - 6.30 HGB 13.8 g/dL 12.0 - 18.0 HCT 40.7 % 37.0 - 51.0 MCV 91.3 fL 80.0 - 97.0 MCH 30.9 pg 26.0 - 32.0 MCHC 33.9 g/dL 31.0 - 36.0 PLT 182 10E3/uL 140 - 440 RDW-CV 13.3 % 11.5 - 14.5 Lym% 23.5 % 10.0 - 58.5 Neut% 67.6 % 37.0 - 92.0 MXD% 8.9 % 0.1 - 24.0 Lym# 1.9 10E3/uL 0.6 - 4.1 Neut# 5.3 % 2.0 - 7.8 MXD# 0.7 10E3/uL 0.0 - 1.8 MPV 11.1 fL 9.0 - 13.0 CMP 12/17/2019 [facility]Inhouse Glu 248 mg/dL High 70 - 110 BUN 17 mg/dL 8 - 23 Creat 1.0 mg/dL 0.5 - 1.0 BUN/Creatinine Ratio 17.7 CALC Na 140 mmol/L 136 - 145 K 4.6 mmol/L 3.5 - 5.1 CL 105.3 mmol/L 98.0 - 107.0 Co2 26.3 mmol/L 22.0 - 29.0 CA 9.1 mg/dL 8.6 - 10.2 TP 6.4 g/dL Low 6.6 - 8.7 Alb 3.8 g/dL 3.4 - 4.8 A/G Ratio 1.5 CALC Globulin 2.6 CALC Alp 69.2 U/L 35 - 129 Alt (SGPT) 17 U/L 0 - 41 Ast (Sgot) 18 U/L 0 - 40 Tbili 0.37 mg/dL 0.0 - 1.2 Osmolality-Calculated 289.9 CALC Anion Gap 13 mmol/L eGFR 64 # Calc 7 eGFR Non-Afr. Citizen Of [place] 55 # Calc 8 Laboratory test finding 12/17/2019 [facility] CK 125 U/L 26 - 192 Lipid Panel 12/17/2019 [facility] Chol 157 mg/dL 0 - 200 Trig 151 mg/dL 40 - 200 HDL 46 mg/dL 45 - 65 LDL_C 81 Calc 75 - 129 Cho/HDL Ratio 3.4 CALC 1 NORMAL RANGES Age WBC RBC HGB [...] HCT IS 5% LESS SOURCE FOR DATA: [employer] 1800 OPERATION MANUAL( AUTOMATED BLOOD COUNTS AND [...] 2 CKD-EPI 3 CKD-EPI 4 {A1] {HB] 5 {A1] {HB] 6 NORMAL RANGES Age WBC RBC HGB HCT [...] HCT IS 5% LESS SOURCE FOR DATA: [employer] 1800 OPERATION MANUAL( AUTOMATED BLOOD COUNTS AND [...] mL/min Normal 80 and above >32 mL/min Normal 7 CKD-EPI 8 CKD-EPI Procedures Description No Information Available Medical Devices Description No Information Available Encounters Type Date Location Provider Dx Diagnosis Office Visit 04/23/2020 4:15p [place] [facility] Vianey Barrera FNP-BC J30.9 Allergic rhinitis, unspecified Office Visit 03/18/2020 9:20a [place] [facility] Dennis Tai.Xuan Oliver, FAAFP Z79.4 assisted (current) use of insulin E11.9 Type 2 diabetes mellitus wit hout complications I10 Essential (primary) hyperten felicitas E78.5 Hyperlipidemia, unspecified Office Visit 01/30/2020 9:15a [place] [facility] Elvis Brown D.O ., FAAFP Z00.01 Encounter for general adult medical exam w abnormal findings E11.9 Type 2 diabetes mellitus wit hout complications I10 Essential (primary) hyperten felicitas 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 F32.89 Other specified depressive e pisodes Office Visit 12/28/2019 9:30a [place] [facility] Jorge A Bee PA E11.9 Type 2 diabetes mellitus without complic ations Z79.84 assisted (current) use of o ral hypoglycemic drugs Office Visit 12/17/2019 10:30a [place] [facility] Tyshawn Tai, FAAFP Z79.84 assisted (current) use of oral hypoglyc emic drugs E11.9 Type 2 diabetes mellitus wit hout complications E78.5 Hyperlipidemia, unspecified I10 Essential (primary) hyperten felicitas K21.9 Gastro-esophageal reflux dis ease without esophagitis Assessments Date Code Description Provider 04/23/2020 J30.9 Allergic rhinitis, unspecified R Vianey patiño, [facility] 03/18/2020 Z79.4 assisted (current) use of insul in Elvis Brown D.O., FAAFP 03/18/2020 E11.9 Type 2 diabetes mellitus without complications Elvis Brown D.O., FAAFP 03/18/2020 I10 Essential (primary) hypertension Elvis Brown D.O., FAAFP 03/18/2020 E78.5 Hyperlipidemia, unspecified Sujit Brown D.O., FAAFP 03/11/2020 E11.9 Type 2 diabetes mellitus without complications Elvis Brown D.O., FAAFP 03/11/2020 E78.5 Hyperlipidemia, unspecified Sujit Brown D.O., FAAFP 03/11/2020 I10 Essential (primary) hypertension Elvis Brown D.O., FAAFP 02/27/2020 Z23 Encounter for immunization Ryder Brown D.O., [facility] 01/30/2020 Z00.01 Encounter for genera l adult medical examination with abnormal findings Elvis Brown D.O., FAAFP 01/30/2020 E11.9 Type 2 diabetes mellitus without complications Elvis Brown D.O., FAAFP 01/30/2020 I10 Essential (primary) hypertension Elvis Brown D.O., [facility]FP 01/30/2020 Z79.4 assisted (current) use of insul in Elvis Brown D.O., [facility] 01/30/2020 F32.89 Other specified depressive episo bibiana Elvis Brown D.O., [facility] 12/28/2019 E11.9 Type 2 diabetes mellitus without complications Michelle Bee PA 12/28/2019 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 Michelle Bee PA 12/17/2019 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 Elvis Brown D.O., [facility] 12/17/2019 E11.9 Type 2 diabetes mellitus without complications [facility]., [facility] 12/17/2019 E78.5 Hyperlipidemia, unspecified Sujit Brown D.O., [facility]FP 12/17/2019 I10 Essential (primary) hypertension [facility] 12/17/2019 K21.9 Gastro-esophageal reflux disease without esophagitis Elvis Brown D.O., [facility] Plan of Treatment Future Appointment(s):* 06/18/2020 9:00 am - [facility] Functional Status Description No Information Available Mental Status Description No Information Available Referrals Description No Information Available
--- OUTSIDE RECORDS SUMMARY | 2020-07-13 16:35 | CCD | Continuity of Care Document ---
Author Author Tova SANDERS D.O. Organization Unknown Address [address] [facility] [address] [place] [address] Phone [phone] Problems Active Problems Provider Date Type 2 [...] FNP- Onset: 015 Psoriatic dactylitis Vianey Barrera [facility]- Onset: 5 Major depressive disorder, recurrent, severe [...] mouth every day 90tabs Elvis Sanders D.O., [facility] 11/2019 B-D Pen NDL SHRT [id number](10/26) Dread 0 Use Daily With Levemir And Humalog 400units [facility].O., [facility] 02/18/2019 Blood Glucose Test Strips use twice a day and as needed (dx: e11.9) 200units E11.9 Elvis [facility] D.O., [facility] 12/18/2018 Tresiba Flextouch 20 0Unit/ML Solution Pen-Inject take 75 units twice daily(new dose) maximum daily dose is 15 0 units 27ml Elvis [facility].O., [facility] 08/21/2018 Bisoprolol Fumarate 5mg Tablets Take 1 Tablet By Mouth Every Day 30tabs Elvis Sanders D.O., [facility] 05/30/2017 Sertraline HCL 25mg Tablets take 1 tablet by mouth every day 90tabs [facility].O., [facility] 07/30/2016 BD Pen [place] Short/Ultrafine/31G X 5/1 6" 31G X 8 mm Misc for use daily with levimir and humalog dx: e11.9 4/day 400un its E11.9 Elvis Sanders D.O., [facility] 11/22/2014 Accu-Chek Smartview Strips test 2 times a day and as needed e11.9 100units E11.9 Elvis Sanders D.O., [facility] 09/18/2014 Lancets test bs bid and prn if indicated 300units Vianey Reno [facility]- 04/25/[address] Take 1 Capsule By Mouth Every Morning. Maximum Daily Dose Is 1 90caps Elvis Sanders D.O., [facility] 11/20/2012 Atorvastatin Calcium 40mg Tablets Take 1 Tablet By Mouth Every Day. Maximum Daily Dose Is 1. Maximum Daily Dose Is 1 90tabs Elvis Sanders D.O., [facility] 11/10/2012 Quinapril HCL 40mg Tablets take 1 and 1/2 tablets by mouth every day 135tabs Elvis Sanders D.O. , [facility] 10/23/2012 Hydrochlorothiazide 25mg Tablets Take 1 Tablet By Mouth Every Day. Maximum Daily Dose Is 1. Maximum Daily Dose Is 1 90tabs Elvis Sanders D.O., [facility] 10/09/2012 Doxazosin Mesylate 8mg Tablets take 1 tablet by mouth once daily mdd 1 30tabs Elvis Sanders D.O., [facility] 10/09/2012 Medications Administered in Office Medication SIG Qnty Indications Ordering Provider Date Injection (SC)/(Im) Injection Vianey Barrera [facility] 10/23/2012 Injection (SC)/(Im) Injection Vianey Barrera [facility] 04/20/2012 Injection (SC)/(Im) Injection Vianey Barrera [facility] 03/25/2011 Injection (SC)/(Im) Injection Vianey Barrera [facility] 03/02/2010 Injection (SC)/(Im) Injection Natan Reyes M.D. 03/19/2009 Injection Subcutaneous Or Intramuscular Injection Elvis Sanders D.O., [facility] 03/26/2008 Injection Subcutaneous Or Intramuscular Injection Kiko Aguilar [facility] 01/17 Injection Subcutaneous Or Intramuscular Injection Natan Reyes M.D. 2006 Injection Subcutaneous Or Intramuscular Injection Elvis Sanders D.O., [facility] 04/26/2006 Injection (SC)/(Im) Injection Pierce Inman, DO 03/23/2005 Injection (SC)/(Im) Injection Pierce Inman, DO 03/23/2005 Injection (SC)/(Im) Injection Pierce Inman, DO 03/24/2004 Injection (SC)/(Im) Injection Elvis Sanders D.O., [facility] 04/10/2002 Injection (SC)/(Im) Injection Natan Reyes M.D. 03/15/2001 Immunizations CPT Code Status Date Vaccine Lot # [id number] Given 02/27/2020 Influenza Virus Vaccine, Quadrivalent, Slit Virus, Im Use 3Y & Up [id number] 87645 Given 02/22/2017 Influenza Virus Vaccine, Quadrivalent, Slit Virus, Im Use 3Y & Up [id number] Q2037 Given 02/20/2014 Influenza Vaccin e (Fluvirin) 3Yrs Of Age Or Older Medicare Plans 83614 Given 02/20/2014 Influenza Virus Vac. Split Virus Individuals 3 Years And Above [id number] 21987 Given 03/02/2013 Influenza Vaccin e (Fluzone) 3Yrs Of Age Or Older Medicare Plans 56883 Given 03/02/2013 Influenza Virus Vac. Split Virus Individuals 3 Years And Above [id number] 25894 Given 10/23/[address] [id number] 7[address]37 Given 04/20/2012 Influenza Vaccin e (Fluzone) 3Yrs Of Age Or Older Medicare Plans 82797 Given 04/20/2012 Influenza Virus Vac. Split Virus Individuals 3 Years And Above [id number] 43489 Given 03/25/2011 Influenza Vaccin e (Fluzone) 3Yrs Of Age Or Older Medicare Plans 92808 Given 03/25/2011 Influenza Virus Vac. Split Virus Individuals 3 Years And Above [id number] 67354 Given 03/02/2010 Influenza Virus Vac. Split Virus Individuals 3 Years And Above 87607 Given 03/19/2009 Influenza Virus Vac. Split Virus Individuals 3 Years And Above [id number] 20184 Given 03/26/2008 Influenza Virus Vac. Split Virus Individuals 3 Years And Above [id number] 25977 Given 03/28/2007 Influenza Virus Vac. Split Virus Individuals 3 Years And Above [id number] 73177 Given 04/26/2006 Influenza Virus Vac. Split Virus Individuals 3 Years And Above 29583 Given 03/23/2005 Pneumococcal Immunization 78950 Given 03/23/2005 Influenza Virus Vac. Split Virus Individuals 3 Years And Above 39022 Given 03/24/2004 Influenza Virus Vac. Split Virus Individuals 3 Years And Above 01568 Given 04/10/2002 Influenza Virus Vac. Whole V irus 01873 Given 04/10/2002 Influenza Virus Vac. Split Virus Individuals 3 Years And Above 35180 Given 03/15/2001 Influenza Immunization 53985 Given 04/07/2000 Influenza Immunization 54697 Given 04/01/1999 Influenza Immunization 54143 Given 04/23/1998 Pneumococcal Immunization 22880 Given 04/23/1998 Influenza Immunization 50713 Given 05/06/1997 Influenza Immunization Vital Signs Date Vital Result Comment 06/18/2020 9:14am BP Systolic 102 mmHg BP Diastolic 52 mmHg Body Temperature 97.9 F Heart Rate 90 /min Respiratory Rate 18 /min Height 66 inches 5'6" Weight 221.00 lb Fletcher Body Weight 130 lb BMI (Body Mass Index) 35.7 kg/m2 O2 % BldC Oximetry 96 % 04/23/2020 4:14pm BP Systolic 124 mmHg BP Diastolic 64 mmHg Body Temperature 98.2 F Heart Rate 68 /min Respiratory Rate 16 /min Height 66 inches 5'6" Weight 223.00 lb Fletcher Body Weight 130 lb BMI (Body Mass Index) 36.0 kg/m2 O2 % BldC Oximetry 97 % (AT Rest), (Room Air ) Results Test Acquired Date Facility Test Result H/L Range Note Microalb/Creat Ratio 06/18/2020 [facility] Alb 10 mg/L 1 - 30 Creatinine, Urine 50 mg/dL 10 - 300 A/C Ratio <30 mg/g % Laboratory test finding 06/18/2020 [place] [address] [phone] Hgba1c 8.8 % High 4.4 - 6.1 [...] eGFR 51 # Calc 3 eGFR Non-Afr. Peruv[place] 44 # Calc 4 Laboratory test finding [...] eGFR 72 # Calc 5 eGFR Non-Afr. 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 E11.9 Type 2 diabetes mellitus wit hout complications I10 Essential (primary) hyperten felicitas E78.5 Hyperlipidemia, unspecified Office Visit 01/30/2020 9:15a [facility] Office Tyshawn Tai, FAAFP Z00.01 Encounter for general adult medical exam w abnormal findings E11.9 Type 2 diabetes mellitus wit hout complications I10 Essential (primary) hyperten felicitas Z79.4 snf (current) use of i nsulin F32.89 Other specified depressive e pisodes Office Visit 12/28/2019 9:30a [facility] Office Jorge A Bee PA E11.9 Type 2 diabetes mellitus without complic ations Z79.84 snf (current) use of o ral hypoglycemic drugs Assessments Date Code Description Provider 06/18/2020 Z00.01 Encounter for [facility] adult medical examination with abnormal findings Elvis Sanders D.O., [facility] 06/18/2020 E11.9 Type 2 diabetes mellitus without complications Elvis Sanders D.O., [facility] 06/18/2020 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 06/18/2020 E78.5 Hyperlipidemia, unspecified Sujit Sanders D.O., [facility] 06/18/2020 F32.89 Other specified depressive episo bibiana Elvis Sanders D.O., [facility] 04/23/2020 J30.9 Allergic rhinitis, unspecified R Vianey patiño, [facility] 03/18/2020 Z79.4 snf (current) use of insul in Elvis Sanders D.O., FAAFP 03/18/2020 E11.9 Type 2 diabetes mellitus without complications Elvis Sanders D.O., [facility] 03/18/2020 I10 Essential (primary) hypertension Elvis Sanders [...] hypertension Elvis Sanders D.O., [facility] 01/30/2020 Z79.4 snf (current) use of insul in Elvis Sanders D.O., [facility]FP 01/30/2020 F32.89 Other specified depressive episo bibiana Elvis Sanders D.O., [facility] 12/28/2019 E11.9 Type 2 diabetes mellitus without complications Michelle Bee PA 12/28/2019 Z79.84 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
--- OUTSIDE RECORDS SUMMARY | 2020-07-13 16:35 | CCD | Continuity of Care Document ---
Author Author Tova BARRERA Tony [facility] Organization Unknown Address 3 [facility] [address] [place] [address] Phone [phone] Problems Active Problems Provider Date Type 2 [...] Ons et: 04/25/2008 Essential hypertension Vianey Barrera [facility] Onset: 015 Psoriatic dactylitis Vianey Barrera [facility] Onset: 5 Major depressive disorder, recurrent, severe with psyc hotic symptoms Vianey Barrera [facility] Onset: 04/24/2015 Diverticulosis of colon without [...] mouth every day 90tabs Elvis Brown D.O., [facility] 11/2019 B-D Pen NDL SHRT [id number](10/26) Dread 0 Use Daily With Levemir And Humalog 400units [facility].O., [facility] 02/18/2019 Blood Glucose Test Strips use twice a day and as needed (dx: e11.9) 200units E11.9 [facility] D.O., [facility] 12/18/2018 Tresiba Flextouch 20 0Unit/ML Solution Pen-Inject take 75 units twice daily(new dose) maximum daily dose is 15 0 units 27ml [facility].O., [facility] 08/21/2018 Bisoprolol Fumarate 5mg Tablets take 1 tablet by mouth every day 30tabs Elvis Brown D.O., [facility] 05/30/2017 Sertraline HCL 25mg Tablets take 1 tablet by mouth every day 90tabs [facility].O., [facility] 07/30/2016 BD Pen [place] Short/Ultrafine/31G X 5/1 6" 31G X 8 mm Misc for use daily with levimir and humalog dx: e11.9 4/day 400un its E11.9 [facility] D.O., [facility] 11/22/2014 Accu-Chek Smartview Strips test 2 times a day and as needed e11.9 100units E11.9 Elvis Brown D.O., [facility] 09/18/2014 Lancets test bs bid and prn if indicated 300units Vianey Reno [facility]- 04/25/[address] Take 1 Capsule By Mouth Every Morning. Maximum Daily Dose Is 1 90caps [facility]., [facility] 11/20/2012 Atorvastatin Calcium 40mg Tablets Take 1 Tablet By Mouth Every Day. Maximum Daily Dose Is 1. Maximum Daily Dose Is 1 90tabs Elvis Brown D.O., [facility] 11/10/2012 Quinapril HCL 40mg Tablets Take 1 And 1/2 Tablets By Mouth Every Day 135tabs Elvis Brown D.O. , [facility] 10/23/2012 Hydrochlorothiazide 25mg Tablets Take 1 Tablet By Mouth Every Day. Maximum Daily Dose Is 1. Maximum Daily Dose Is 1 90tabs Elvis Brown D.O., [facility] 10/09/2012 Doxazosin Mesylate 8mg Tablets take 1 tablet by mouth once daily mdd 1 30tabs Elvis Brown D.O., [facility] 10/09/2012 Medications Administered in Office Medication SIG Qnty Indications Ordering Provider Date Injection (SC)/(Im) Injection Vianey Barrera [facility] 10/23/2012 Injection (SC)/(Im) Injection Vianey Barrera [facility] 04/20/2012 Injection (SC)/(Im) Injection Vianey Barrera [facility] 03/25/2011 Injection (SC)/(Im) Injection Vianey Barrera [facility] 03/02/2010 Injection (SC)/(Im) Injection Natan Reyes M.D. 03/19/2009 Injection Subcutaneous Or Intramuscular Injection Elvis Brown D.O., [facility] 03/26/2008 Injection Subcutaneous Or Intramuscular Injection Kiko Aguilar [facility] 01/17 Injection Subcutaneous Or Intramuscular Injection Natan Reyes M.D. 2006 Injection Subcutaneous Or Intramuscular Injection Elvis Brown D.O., [facility] 04/26/2006 Injection (SC)/(Im) Injection Pierce Inman, DO 03/23/2005 Injection (SC)/(Im) Injection Pierce Inman, DO 03/23/2005 Injection (SC)/(Im) Injection Pierce Inman, DO 03/24/2004 Injection (SC)/(Im) Injection Elvis Brown D.O., [facility] 04/10/2002 Injection (SC)/(Im) Injection Natan Reyes M.D. 03/15/2001 Immunizations CPT Code Status Date Vaccine Lot # [id number] Given 02/27/2020 Influenza Virus Vaccine, Quadrivalent, Slit Virus, Im Use 3Y & Up [id number] 09334 Given 02/22/2017 Influenza Virus Vaccine, Quadrivalent, Slit Virus, Im Use 3Y & Up [id number] Q2037 Given 02/20/2014 Influenza Vaccin e (Fluvirin) 3Yrs Of Age Or Older Medicare Plans 26974 Given 02/20/2014 Influenza Virus Vac. Split Virus Individuals 3 Years And Above [id number] 50583 Given 03/02/2013 Influenza Vaccin e (Fluzone) 3Yrs Of Age Or Older Medicare Plans 71946 Given 03/02/2013 Influenza Virus Vac. Split Virus Individuals 3 Years And Above [id number] 49223 Given 10/23/[address] [id number]18 Given 04/20/2012 Influenza Vaccin e (Fluzone) 3Yrs Of Age Or Older Medicare Plans 31096 Given 04/20/2012 Influenza Virus Vac. Split Virus Individuals 3 Years And Above [id number] 30039 Given 03/25/2011 Influenza Vaccin e (Fluzone) 3Yrs Of Age Or Older Medicare Plans 35647 Given 03/25/2011 Influenza Virus Vac. Split Virus Individuals 3 Years And Above [id number] 33883 Given 03/02/2010 Influenza Virus Vac. Split Virus Individuals 3 Years And Above 68977 Given 03/19/2009 Influenza Virus Vac. Split Virus Individuals 3 Years And Above [id number] 85117 Given 03/26/2008 Influenza Virus Vac. Split Virus Individuals 3 Years And Above [id number] 33115 Given 03/28/2007 Influenza Virus Vac. Split Virus Individuals 3 Years And Above [id number] 74029 Given 04/26/2006 Influenza Virus Vac. Split Virus Individuals 3 Years And Above 95845 Given 03/23/2005 Pneumococcal Immunization 12084 Given 03/23/2005 Influenza Virus Vac. Split Virus Individuals 3 Years And Above 21649 Given 03/24/2004 Influenza Virus Vac. Split Virus Individuals 3 Years And Above 98749 Given 04/10/2002 Influenza Virus Vac. Whole V irus 05700 Given 04/10/2002 Influenza Virus Vac. Split Virus Individuals 3 Years And Above 07940 Given 03/15/2001 Influenza Immunization 14984 Given 04/07/2000 Influenza Immunization 26053 Given 04/01/1999 Influenza Immunization 12961 Given 04/23/1998 Pneumococcal Immunization 12894 Given 04/23/1998 Influenza Immunization 18904 Given 05/06/1997 Influenza Immunization Vital Signs Date Vital Result Comment 04/23/2020 4:14pm BP Systolic 124 mmHg BP Diastolic 64 mmHg Body Temperature 98.2 F Heart Rate 68 /min Respiratory Rate 16 /min Height 66 inches 5'6" Weight 223.00 lb [place] Body Weight 130 lb BMI (Body Mass Index) 36.0 kg/m2 O2 % BldC Oximetry 97 % (AT Rest), (Room Air ) 03/18/2020 9:25am BP Systolic 120 mmHg BP Diastolic 62 mmHg Body Temperature 97.9 F Heart Rate 58 /min Respiratory Rate 16 /min Height 66 inches 5'6" Weight 225.00 lb [place] Body Weight 130 lb BMI (Body Mass [...] eGFR 72 # Calc 2 eGFR Non-Afr. Palestinian 63 # Calc 3 Laboratory test finding [...] QUAL Abnormal Negative Laboratory test finding 03/11/2020 [place] [address] [phone] Hgba1c 8.7 % High 4.4 - 6.1 4 Laboratory test finding 12/17/2019 [place] [address] [phone] Hgba1c 9.6 % High 4.4 - 6.1 [...] eGFR 64 # Calc 7 eGFR Non-Afr. Palestinian 55 # Calc 8 Laboratory test finding [...] HCT IS 5% LESS SOURCE FOR DATA: [employer] 1800 OPERATION MANUAL( AUTOMATED BLOOD COUNTS AND [...] HCT IS 5% LESS SOURCE FOR DATA: [employer] 1800 [employer]( AUTOMATED BLOOD COUNTS AND [...] Provider Dx Diagnosis Office Visit 04/23/2020 4:15p [facility] Vianey Barrera FNP-BC J30.9 Allergic rhinitis, unspecified Office Visit 03/18/2020 9:20a [facility] Dennis Tai.Xuan Oliver, FAAFP Z79.4 custodial (current) use of insulin E11.9 Type 2 diabetes mellitus wit hout complications I10 Essential (primary) hyperten felicitas E78.5 Hyperlipidemia, unspecified Office Visit 01/30/2020 9:15a [facility] Elvis Brown D.O ., FAAFP Z00.01 Encounter for general adult medical exam w abnormal findings E11.9 Type 2 diabetes mellitus wit hout complications I10 Essential (primary) hyperten felicitas 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 F32.89 Other specified depressive e pisodes Office Visit 12/28/2019 9:30a [facility] Jorge A Bee PA E11.9 Type 2 diabetes mellitus without complic ations Z79.84 custodial (current) use of o ral hypoglycemic drugs Office Visit 12/17/2019 10:30a [facility] Tyshawn Tai, FAAFP Z79.84 custodial (current) use of oral hypoglyc emic drugs E11.9 Type 2 diabetes mellitus wit hout complications E78.5 Hyperlipidemia, unspecified I10 Essential (primary) hyperten felicitas K21.9 Gastro-esophageal reflux dis ease without esophagitis Assessments Date Code Description Provider 04/23/2020 J30.9 Allergic rhinitis, unspecified R Vianey patiño, [facility] 03/18/2020 Z79.4 custodial (current) use of insul in Elvis Brown [...] Z23 Encounter for immunization Ryder Brown D.O., [facility] 01/30/2020 Z00.01 Encounter for genera l adult medical examination with abnormal findings Elvis Brown D.O., [facility] 01/30/2020 E11.9 Type 2 diabetes mellitus without complications Elvis Brown D.O., [facility] 01/30/2020 I10 Essential (primary) hypertension Elvis Brown D.O., [facility] 01/30/2020 Z79.4 custodial (current) use of insul in Elvis Brown D.O., [facility] 01/30/2020 F32.89 Other specified depressive episo bibiana Elvis Brown D.O., [facility] 12/28/2019 E11.9 Type 2 diabetes mellitus without complications Michelle Bee PA 12/28/2019 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 Michelle Bee PA 12/17/2019 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 Elvis Brown D.O., [facility] 12/17/2019 E11.9 Type 2 diabetes mellitus without complications [facility] D.O., [facility] 12/17/2019 E78.5 Hyperlipidemia, unspecified Sujit Brown D.O., [facility] 12/17/2019 I10 Essential (primary) hypertension Elvis Brown D.O., [facility] 12/17/2019 K21.9 Gastro-esophageal reflux disease without esophagitis Elvis Brown D.O., [facility] Plan of Treatment Future Appointment(s):* 06/18/2020 9:00 am - Elvis Brown D.O., [facility] at [facility] Functional Status Description No Information Available Mental Status Description No Information Available Referrals Description No Information Available
--- OUTSIDE RECORDS SUMMARY | 2020-07-13 16:36 | CCD | Continuity of Care Document ---
Author Author Tova SANDERS D.O. Organization Unknown Address 3 [facility] [address] [place] [address] Phone [phone] Problems Active Problems Provider Date Type 2 [...] FNP- Onset: 015 Psoriatic dactylitis Vianey Barrera [facility] Onset: 5 Major depressive disorder, recurrent, severe with psyc hotic symptoms Vianey Barrera FNP-BC Onset: 04/24/2015 Diverticulosis of colon without diverticulitis [...] mouth every day 90tabs Elvis Sanders D.O., [facility] 11/2019 B-D Pen NDL SHRT [id number](10/26) Dread 0 Use Daily With Levemir And Humalog 400units [facility].O., [facility] 02/18/2019 Blood Glucose Test Strips use twice a day and as needed (dx: e11.9) 200units E11.9 [facility] D.O., [facility] 12/18/2018 Tresiba Flextouch 20 0Unit/ML Solution Pen-Inject take 75 units twice daily(new dose) maximum daily dose is 15 0 units 27ml [facility] D.O., [facility] 08/21/2018 Bisoprolol Fumarate 5mg Tablets take 1 tablet by mouth every day 30tabs Elvis Sanders D.O., [facility] 05/30/2017 Sertraline HCL 25mg Tablets take 1 tablet by mouth every day 90tabs [facility] D.O., [facility] 07/30/2016 BD Pen [place] Short/Ultrafine/31G X 5/1 6" 31G X 8 mm Misc for use daily with levimir and humalog dx: e11.9 4/day 400un its E11.9 Elvis [facility] D.O., [facility] 11/22/2014 Accu-Chek Smartview Strips test 2 times a day and as needed e11.9 100units E11.9 Elvis Sanders D.O., [facility] 09/18/2014 Lancets test bs bid and prn if indicated 300units Vianey Reno [facility]- 04/25/[address] Take 1 Capsule By Mouth Every Morning. Maximum Daily Dose Is 1 90caps [facility]., [facility] 11/20/2012 Atorvastatin Calcium 40mg Tablets Take 1 Tablet By Mouth Every Day. Maximum Daily Dose Is 1. Maximum Daily Dose Is 1 90tabs Elvis Sanders D.O., [facility] 11/10/2012 Quinapril HCL 40mg Tablets Take 1 And 1/2 Tablets By Mouth Every Day 135tabs Elvis Sanders D.O. , [facility] 10/23/2012 Hydrochlorothiazide 25mg Tablets Take 1 Tablet By Mouth Every Day. Maximum Daily Dose Is 1. Maximum Daily Dose Is 1 90tabs Elvis Sanders D.O., [facility] 10/09/2012 Doxazosin Mesylate 8mg Tablets take 1 tablet by mouth once daily mdd 1 30tabs Elvis Sanders D.O., [facility] 10/09/2012 Medications Administered in Office Medication SIG Qnty Indications Ordering Provider Date Injection (SC)/(Im) Injection Vianey Barrera [facility] 10/23/2012 Injection (SC)/(Im) Injection Vianey Barrera [facility] 04/20/2012 Injection (SC)/(Im) Injection Vianey Barrera [facility] 03/25/2011 Injection (SC)/(Im) Injection Vianey Barrera [facility] 03/02/2010 Injection (SC)/(Im) Injection Natan Reyes M.D. 03/19/2009 Injection Subcutaneous Or Intramuscular Injection Elvis Sanders D.O., [facility] 03/26/2008 Injection Subcutaneous Or Intramuscular Injection Kiko Aguilar [facility] 01/17 Injection Subcutaneous Or Intramuscular Injection Natan Reyes M.D. 2006 Injection Subcutaneous Or Intramuscular Injection Elvis Sanders D.O., [facility] 04/26/2006 Injection (SC)/(Im) Injection Pierce Inman, DO 03/23/2005 Injection (SC)/(Im) Injection Pierce Inman, DO 03/23/2005 Injection (SC)/(Im) Injection Pierce Inman, DO 03/24/2004 Injection (SC)/(Im) Injection Elvis Sanders D.O., [facility] 04/10/2002 Injection (SC)/(Im) Injection Natan Reyes M.D. 03/15/2001 Immunizations CPT Code Status Date Vaccine Lot # [id number] Given 02/27/2020 Influenza Virus Vaccine, Quadrivalent, Slit Virus, Im Use 3Y & Up [id number] 68960 Given 02/22/2017 Influenza Virus Vaccine, Quadrivalent, Slit Virus, Im Use 3Y & Up [id number] Q2037 Given 02/20/2014 Influenza Vaccin e (Fluvirin) 3Yrs Of Age Or Older Medicare Plans 20205 Given 02/20/2014 Influenza Virus Vac. Split Virus Individuals 3 Years And Above [id number] 83282 Given 03/02/2013 Influenza Vaccin e (Fluzone) 3Yrs Of Age Or Older Medicare Plans 01154 Given 03/02/2013 Influenza Virus Vac. Split Virus Individuals 3 Years And Above [id number] 52004 Given 10/23/[address] [id number] Given 04/20/2012 Influenza Vaccin e (Fluzone) 3Yrs Of Age Or Older Medicare Plans 84316 Given 04/20/2012 Influenza Virus Vac. Split Virus Individuals 3 Years And Above [id number] 23476 Given 03/25/2011 Influenza Vaccin e (Fluzone) 3Yrs Of Age Or Older Medicare Plans 78662 Given 03/25/2011 Influenza Virus Vac. Split Virus Individuals 3 Years And Above [id number] 69241 Given 03/02/2010 Influenza Virus Vac. Split Virus Individuals 3 Years And Above 86615 Given 03/19/2009 Influenza Virus Vac. Split Virus Individuals 3 Years And Above [id number] 09593 Given 03/26/2008 Influenza Virus Vac. Split Virus Individuals 3 Years And Above [id number] 13006 Given 03/28/2007 Influenza Virus Vac. Split Virus Individuals 3 Years And Above [id number] 67220 Given 04/26/2006 Influenza Virus Vac. Split Virus Individuals 3 Years And Above 91764 Given 03/23/2005 Pneumococcal Immunization 32991 Given 03/23/2005 Influenza Virus Vac. Split Virus Individuals 3 Years And Above 65172 Given 03/24/2004 Influenza Virus Vac. Split Virus Individuals 3 Years And Above 52521 Given 04/10/2002 Influenza Virus Vac. Whole V irus 08097 Given 04/10/2002 Influenza Virus Vac. Split Virus Individuals 3 Years And Above 88475 Given 03/15/2001 Influenza Immunization 52577 Given 04/07/2000 Influenza Immunization 83725 Given 04/01/1999 Influenza Immunization 75629 Given 04/23/1998 Pneumococcal Immunization 12803 Given 04/23/1998 Influenza Immunization 31949 Given 05/06/1997 Influenza Immunization Vital Signs Date Vital Result Comment 03/18/2020 9:25am BP Systolic 120 mmHg BP Diastolic 62 mmHg Body Temperature 97.9 F Heart Rate 58 /min Respiratory Rate 16 /min Height 66 inches 5'6" Weight 225.00 lb [place] Body Weight 130 lb BMI (Body Mass Index) 36.3 kg/m2 O2 % BldC Oximetry 97 % 01/30/2020 9:21am BP Systolic 134 mmHg BP Diastolic 60 mmHg Body Temperature 98.2 F Heart Rate 64 /min Respiratory Rate 18 /min Height 66 inches 5'6" Weight 227.00 lb [place] Body Weight 130 lb BMI (Body Mass Index) 36.6 kg/m2 O2 % BldC Oximetry 97 % [...] eGFR 72 # Calc 2 eGFR Non-Afr. North Korean 63 # Calc 3 Laboratory test finding [...] QUAL Abnormal Negative Laboratory test finding 03/11/2020 [place] [address] [phone] Hgba1c 8.7 % High 4.4 - 6.1 4 Laboratory test finding 12/17/2019 [place] [address] [phone] Hgba1c 9.6 % High 4.4 - 6.1 [...] eGFR 64 # Calc 7 eGFR Non-Afr. North Korean 55 # Calc 8 Laboratory test finding [...] HCT IS 5% LESS SOURCE FOR DATA: [employer] 1800 OPERATION MANUAL( AUTOMATED BLOOD COUNTS AND [...] HCT IS 5% LESS SOURCE FOR DATA: [employer] 1800 OPERATION MANUAL( AUTOMATED BLOOD COUNTS AND [...] Date Location Provider Dx Diagnosis Office Visit 03/18/2020 9:20a [facility] Tyshawn Tai, FAAFP Z79.4 assisted (current) use of insulin E11.9 Type 2 diabetes mellitus wit hout complications I10 Essential (primary) hyperten felicitas E78.5 Hyperlipidemia, unspecified Office Visit 01/30/2020 9:15a [facility] Tyshawn Tai, FAAFP Z00.01 Encounter for general adult medical exam w abnormal findings E11.9 Type 2 diabetes mellitus wit hout complications I10 Essential (primary) hyperten felicitas Z79.4 assisted (current) use of i nsulin F32.89 Other specified depressive e pisodes Office Visit 12/28/2019 9:30a [facility] Jorge A Bee PA E11.9 Type 2 diabetes mellitus without complic ations 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 Office Visit 12/17/2019 10:30a [facility] Tyshawn Tai, FAAFP 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 E11.9 Type 2 diabetes mellitus wit hout complications E78.5 Hyperlipidemia, unspecified I10 Essential (primary) hyperten felicitas K21.9 Gastro-esophageal reflux dis ease without esophagitis Assessments Date Code Description Provider 03/18/2020 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 Elvis Sanders D.O., [facility] 03/18/2020 E11.9 Type 2 diabetes mellitus without complications Elvis Sanders D.O., [facility] 03/18/2020 I10 Essential (primary) hypertension Elvis Sanders D.O., [facility] 03/18/2020 E78.5 Hyperlipidemia, unspecified Sujit Sanders D.O., [facility] 03/11/2020 E11.9 Type 2 diabetes mellitus without complications Elvis Sanders D.O., [facility] 03/11/2020 E78.5 Hyperlipidemia, unspecified Sujit Sanders D.O., [facility] 03/11/2020 I10 Essential (primary) hypertension Elvis Sanders D.O., [facility] 02/27/2020 Z23 Encounter for immunization Ryder Sanders D.O., [facility] 01/30/2020 Z00.01 Encounter for genera l adult medical examination with abnormal findings Elvis Sanders D.O., [facility] 01/30/2020 E11.9 Type 2 diabetes mellitus without complications Elvis Sanders D.O., [facility] 01/30/2020 I10 Essential (primary) hypertension Elvis Sanders D.O., [facility] 01/30/2020 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 Elvis Sanders D.O., [facility] 01/30/2020 F32.89 Other specified depressive episo bibiana Elvis Sanders D.O., [facility] 12/28/2019 E11.9 Type 2 diabetes mellitus without complications Michelle Bee PA 12/28/2019 Z79.84 assisted (current) use of oral hypoglycemic drugs Michelle Bee PA 12/17/2019 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 Functional Status Description No Information Available Mental Status Description No Information Available Referrals Description No Information Available
--- OUTSIDE RECORDS SUMMARY | 2020-07-13 16:37 | CCD ---
Author Author [facility] Organization [facility] Address Unknown Phone Unavailable Care Team Providers Care Rigging Supervisor Name Role Phone Barraclough, Michelle PA Unavailable Unavailable Barraclough, Michelle PA Unavailable Unavailable Barraclough, Michelle PA Unavailable Unavailable Barraclough, Michelle PA Unavailable Unavailable Barraclough, Michelle PA Unavailable Unavailable Barraclough, Michelle PA Unavailable Unavailable Fish, J Lavern Unavailable Unavailable Fish, J Lavern Unavailable Unavailable Fish, J Lavern Unavailable Unavailable Fish, J Lavern Unavailable Unavailable Fish, J Lavern Unavailable Unavailable Fish, J Lavern Unavailable Unavailable Fish, J Lavern Unavailable Unavailable Fish, J Lavern Unavailable Unavailable Fish, J Lavern Unavailable Unavailable Fish, J Lavern Unavailable Unavailable Fish, J Lavern Unavailable Unavailable Fish, J Lavern Unavailable Unavailable Fish, J Lavern Unavailable Unavailable Fish, J Lavern Unavailable Unavailable Fish, J Lavern Unavailable Unavailable Fish, J Lavern Unavailable Unavailable Fish, J Lavern Unavailable Unavailable Fish, J Lavern Unavailable Unavailable Fish, J Lavern Unavailable Unavailable Fish, J Lavern Unavailable Unavailable Fish, J Lavern Unavailable Unavailable Fish, J Lavern Unavailable Unavailable Fish, J Lavern Unavailable Unavailable Fish, J Lavern Unavailable Unavailable Fish, J Lavern Unavailable Unavailable Fish, J Lavern Unavailable Unavailable Fish, J Lavern Unavailable Unavailable Fish, J Lavern Unavailable Unavailable Fish, J Lavern Unavailable Unavailable Fish, J Lavern Unavailable Unavailable Fish, J Lavern Unavailable Unavailable Fish, J Lavern Unavailable Unavailable Fish, J Lavern Unavailable Unavailable Fish, J Lavern Unavailable Unavailable Fish, J Lavern Unavailable Unavailable Fish, J Lavern Unavailable Unavailable Fish, J Lavern Unavailable Unavailable Fish, J Lvaern Unavailable Unavailable Fish, J Lavern Unavailable Unavailable Fish, J Lavern Unavailable Unavailable Fish, J Lavern Unavailable Unavailable Fish, J Lavern Unavailable Unavailable Fish, J Lavern Unavailable Unavailable Fish, J Lavern Unavailable Unavailable Fish, J Lavern Unavailable Unavailable Fish, J Lavern Unavailable Unavailable Fish, J Lavern Unavailable Unavailable Fish, J Lavern Unavailable Unavailable Fish, J Lavern Unavailable Unavailable Fish, J Lavern Unavailable Unavailable Fish, J Lavern Unavailable Unavailable Fish, J Lavern Unavailable Unavailable Fish, J Lavern Unavailable Unavailable Fish, J Lavern Unavailable Unavailable Fish, J Lavern Unavailable Unavailable Fish, J Lavern Unavailable Unavailable Fish, J Lavern Unavailable Unavailable Fish, J Lavern Unavailable Unavailable Fish, J Lavern Unavailable Unavailable Fish, J Lavern Unavailable Unavailable Fish, J Lavern Unavailable Unavailable Fish, J Lavern Unavailable Unavailable Fish, J Lavern Unavailable Unavailable Fish, J Lavern Unavailable Unavailable Fish, J Lavern Unavailable Unavailable Fish, J Lavern Unavailable Unavailable Fish, J Lavern Unavailable Unavailable Fish, J Lavern Unavailable Unavailable Fish, J Lavern Unavailable Unavailable Fish, J Lavern Unavailable Unavailable Fish, J Lavern Unavailable Unavailable Fish, J Lavern Unavailable Unavailable Fish, J Lavern Unavailable Unavailable Fish, J Lavern Unavailable Unavailable Fish, J Lavern Unavailable Unavailable Fish, J Lavern Unavailable Unavailable Fish, J Lavern Unavailable Unavailable Fish, J Lavern Unavailable Unavailable Fish, J Lavern Unavailable Unavailable Fish, J Lavern Unavailable Unavailable Fish, J Lavern Unavailable Unavailable Fish, J Lavern Unavailable Unavailable Fish, J Lavern Unavailable Unavailable Fish, J Lavern Unavailable Unavailable Fish, J Lavern Unavailable Unavailable Amelia SMITH CREW BOAT OPERATOR Unavailable Unavailable Amelia SMITH CREW BOAT OPERATOR Unavailable Unavailable Amelia SMITH CREW BOAT OPERATOR Unavailable Unavailable Amelia SMITH CREW BOAT OPERATOR Unavailable Unavailable Amelia SMITH CREW BOAT OPERATOR Unavailable Unavailable Amelia SMITH CREW BOAT OPERATOR Unavailable Unavailable Amelia SMITH CREW BOAT OPERATOR Unavailable Unavailable SMITH, M ZOE CREW BOAT OPERATOR Unavailable Unavailable SMITH, M ZOE CREW BOAT OPERATOR Unavailable Unavailable SMITH, M ZOE CREW BOAT OPERATOR Unavailable Unavailable SMITH, M ZOE CREW BOAT OPERATOR Unavailable Unavailable SMITH, M ZOE CREW BOAT OPERATOR Unavailable Unavailable SMITH, M ZOE CREW BOAT OPERATOR Unavailable Unavailable SMITH, M ZOE CREW BOAT OPERATOR Unavailable Unavailable SMITH, M ZOE CREW BOAT OPERATOR Unavailable Unavailable SMITH, M ZOE CREW BOAT OPERATOR Unavailable Unavailable SMITH, M ZOE CREW BOAT OPERATOR Unavailable Unavailable SMITH, M ZOE CREW BOAT OPERATOR Unavailable Unavailable SMITH, M ZOE CREW BOAT OPERATOR Unavailable Unavailable SMITH, M ZOE CREW BOAT OPERATOR Unavailable Unavailable SMITH, M ZOE CREW BOAT OPERATOR Unavailable Unavailable SMITH, M ZOE CREW BOAT OPERATOR Unavailable Unavailable SMITH, M ZOE CREW BOAT OPERATOR Unavailable Unavailable SMITH, M ZOE CREW BOAT OPERATOR Unavailable Unavailable SMITH, M ZOE CREW BOAT OPERATOR Unavailable Unavailable SMITH, M ZOE CREW BOAT OPERATOR Unavailable Unavailable SMITH, M ZOE CREW BOAT OPERATOR Unavailable Unavailable SMITH, M ZOE CREW BOAT OPERATOR Unavailable Unavailable SMITH, M ZOE CREW BOAT OPERATOR Unavailable Unavailable SMITH, M ZOE CREW BOAT OPERATOR Unavailable Unavailable SMITH, M ZOE CREW BOAT OPERATOR Unavailable Unavailable SMITH, M ZOE CREW BOAT OPERATOR Unavailable Unavailable SMITH, M ZOE CREW BOAT OPERATOR Unavailable Unavailable SMITH, M ZOE CREW BOAT OPERATOR Unavailable Unavailable SMITH, M ZOE CREW BOAT OPERATOR Unavailable Unavailable SMITH, M ZOE CREW BOAT OPERATOR Unavailable Unavailable SMITH, M ZOE CREW BOAT OPERATOR Unavailable Unavailable SMITH, M ZOE CREW BOAT OPERATOR Unavailable Unavailable SMITH, M ZOE CREW BOAT OPERATOR Unavailable Unavailable SMITH, M ZOE CREW BOAT OPERATOR Unavailable Unavailable SMITH, M ZOE CREW BOAT OPERATOR Unavailable Unavailable SMITH, M ZOE CREW BOAT OPERATOR Unavailable Unavailable SMITH, M ZOE CREW BOAT OPERATOR Unavailable Unavailable SMITH, M ZOE CREW BOAT OPERATOR Unavailable Unavailable SMITH, M ZOE CREW BOAT OPERATOR Unavailable Unavailable SMITH, M ZOE CREW BOAT OPERATOR Unavailable Unavailable SMITH, M ZOE CREW BOAT OPERATOR Unavailable Unavailable SMITH, M ZOE CREW BOAT OPERATOR Unavailable Unavailable SMITH, M ZOE CREW BOAT OPERATOR Unavailable Unavailable SMITH, M ZOE CREW BOAT OPERATOR Unavailable Unavailable SMITH, M ZOE CREW BOAT OPERATOR Unavailable Unavailable SMITH, M ZOE CREW BOAT OPERATOR Unavailable Unavailable SMITH, M ZOE CREW BOAT OPERATOR Unavailable Unavailable SMITH, M ZOE CREW BOAT OPERATOR Unavailable Unavailable SMITH, M ZOE CREW BOAT OPERATOR Unavailable Unavailable SMITH, M ZOE CREW BOAT OPERATOR Unavailable Unavailable SMITH, M ZOE CREW BOAT OPERATOR Unavailable Unavailable SMITH, M ZOE CREW BOAT OPERATOR Unavailable Unavailable HOLLIGNSWORTH, C ALEXANDRU Unavailable Unavailable Fish, J Lavern Unavailable Unavailable Fish, J Lavern Unavailable Unavailable Fish, J Lavern Unavailable Unavailable Fish, J Lavern Unavailable Unavailable Fish, J Lavern Unavailable Unavailable Fish, J Lavern Unavailable Unavailable Fish, J Lavern Unavailable Unavailable Fish, J Lavern Unavailable Unavailable Fish, J Lavern Unavailable Unavailable Fish, J Lavern Unavailable Unavailable Fish, J Lavern Unavailable Unavailable Fish, J Lavern Unavailable Unavailable Fish, J Lavern Unavailable Unavailable Fish, J Lavern Unavailable Unavailable Fish, J Lavern Unavailable Unavailable Fish, J Lavern Unavailable Unavailable Fish, J Lavern Unavailable Unavailable Fish, J Lavern Unavailable Unavailable Fish, J Lavern Unavailable Unavailable Fish, J Lavern Unavailable Unavailable Fish, J Lavern Unavailable Unavailable Fish, J Lavern Unavailable Unavailable Fish, J Lavern Unavailable Unavailable Fish, J Lavern Unavailable Unavailable Fish, J Lavern Unavailable Unavailable Fish, J Lavern Unavailable Unavailable Fish, J Lavern Unavailable Unavailable Fish, J Lavern Unavailable Unavailable Fish, J Lavern Unavailable Unavailable Fish, J Lavern Unavailable Unavailable Fish, J Lavern Unavailable Unavailable Fish, J Lavern Unavailable Unavailable Fish, J Lavern Unavailable Unavailable Fish, J Lavern Unavailable Unavailable Fish, J Lavern Unavailable Unavailable Fish, J Lavern Unavailable Unavailable Fish, J Lavern Unavailable Unavailable Fish, J Lavern Unavailable Unavailable Fish, J Lavren Unavailable Unavailable Fish, J Lavern Unavailable Unavailable Fish, J Lavern Unavailable Unavailable Fish, J Lavern Unavailable Unavailable Fish, J Lavern Unavailable Unavailable Fish, J Lavern Unavailable Unavailable Fish, J Lavern Unavailable Unavailable Fish, J Lavern Unavailable Unavailable Fish, J Lavern Unavailable Unavailable Fish, J Lavern Unavailable Unavailable Fish, J Lavern Unavailable Unavailable Fish, J Lavern Unavailable Unavailable Fish, J Lavern Unavailable Unavailable Fish, J Lavern Unavailable Unavailable Fish, J Lavern Unavailable Unavailable Fish, J Lavern Unavailable Unavailable Fish, J Lavern Unavailable Unavailable Fish, J Lavern Unavailable Unavailable Fish, J Lavern Unavailable Unavailable Fish, J Lavern Unavailable Unavailable Fish, J Lavern Unavailable Unavailable Fish, J Lavern Unavailable Unavailable Fish, J Lavern Unavailable Unavailable Fish, J Lavern Unavailable Unavailable Fish, J Lavern Unavailable Unavailable Fish, J Lavern Unavailable Unavailable Fish, J Lavenr Unavailable Unavailable Fish, J Lavern Unavailable Unavailable Fish, J Lavern Unavailable Unavailable Fish, J Lavern Unavailable Unavailable Fish, J Lavern Unavailable Unavailable Fish, J Lavern Unavailable Unavailable Fish, J Lavern Unavailable Unavailable Fish, J Lavern Unavailable Unavailable Fish, J Lavern Unavailable Unavailable Fish, J Lavern Unavailable Unavailable Fish, J Lavern Unavailable Unavailable Fish, J Lavern Unavailable Unavailable Fish, J Lavern Unavailable Unavailable Fish, J Lavern Unavailable Unavailable Fish, J Lavern Unavailable Unavailable Fish, J Lavern Unavailable Unavailable Fish, J Lavern Unavailable Unavailable Fish, J Lavern Unavailable Unavailable Fish, J Lavern Unavailable Unavailable Fish, J Lavern Unavailable Unavailable Fish, J Lavern Unavailable Unavailable JOSESITO, B ELLA Unavailable Unavailable Re-disclosure Warning The records that you are about to access may contain information from federally-assisted alcohol or drug abuse programs. If such information is present, then the following federally mandated warning applies: This information has been disclosed to you from records protected by federal confidentiality rules (42 CFR part 2). The federal rules prohibit you from making any further disclosure of this information unless further disclosure is expressly permitted by the written consent of the person to whom it pertains or as otherwise permitted by 42 CFR part 2. A general authorization for the release of medical or other information is NOT sufficient for this purpose. The Federal rules restrict any use of the information to criminally investigate or prosecute any alcohol or drug abuse patient.The records that you are about to access may contain highly sensitive health information, the redisclosure of which is protected by Article 27-F of the [facility] Public Health law. If you continue you may have access to information: Regarding HIV / AIDS; Provided by facilities licensed or operated by the [facility] Office of Mental Health; or Provided by the [facility] Office for People With Developmental Disabilities. If such information is present, then the following [facility] mandated warning applies: This information has been disclosed to you from confidential records which are protected by state law. State law prohibits you from making any further disclosure of this information without the specific written consent of the person to whom it pertains, or as otherwise permitted by law. Any unauthorized further disclosure in violation of state law may result in a fine or snf sentence or both. A general authorization for the release of medical or other information is NOT sufficient authorization for further disc losure. Allergies and Adverse Reactions Type Description Substance Reaction Status Data Source(s ) No Known Allergies No Known Allergies [facility] Encounters Encounter Providers Location Date Indications Data Source(s ) Outpatient Attender: ELLA BELLAMYAttender: ALEXANDRU Bernal ant: Lavern Fish 07/08/2020 05:26:00 PM EST - 07/09/2020 02:50:00 PM [facility] Patient discharged. Outpatient Attender: Lavern FishReferrer: Lavern KevinConsultant: Lavern Fish 06/18/2020 12:20:00 PM EST - 06/18/2020 12:30:00 PM [facility] Outpatient Attender: Lavern Brown [place] [facility] 06/18/2020 08:00:0 0 AM EST [facility] Outpatient Attender: ZOE SMITH NP [place] [facility] 04/23 03:15:00 PM EST [facility] Outpatient Attender: Lavernflores Brown [place] [facility] 03/18/2020 09:20:0 0 AM EDT [facility] ([facility] Outpatient Attender: Lavern FishReferrer: Lavernflores BrownConsultant: Lavern Fish 03/11/2020 11:59:00 AM EDT - 03/11/2020 12:09:00 PM EDT [facility] Outpatient Attender: Lavern Brown [place] [facility] 01/30/2020 09:15:0 0 AM EDT [facility] ([facility] Outpatient Attender: Michelle DESIR [facility] 12/28/2019 09:30:00 AM EDT [facility] Outpatient Attender: Lavern BrownReferrer: Lavernflores BrownConsultant: Lavern Fish 12/17/2019 05:15:00 PM EDT - 12/17/2019 05:25:00 PM EDT [facility] Outpatient Attender: Lavern Brown [place] [facility] 12/17/2019 10:30:0 0 AM EDT [facility] ([facility] Outpatient Attender: Lavern BrownReferrer: Lavern BrownConsultant: Lavern Brown 09/17/2019 04:56:00 PM EDT - 09/17/2019 05:06:00 PM EDT [facility] Outpatient Attender: Lavern Brown [place] [facility] 09/17/2019 01:00:0 0 PM EDT [facility] ([facility] Outpatient Attender: Michelle Bee [facility] 08/16/2019 08:00:00 AM EST [facility] Outpatient Attender: Michelle DESIR [place] [facility] 08/02/2019 12:30:00 PM EST [facility] Outpatient Attender: Lavern BrownReferrer: Lavern BrownConsultant: Lavern Brown 06/20/2019 01:21:00 PM EST - 06/20/2019 01:31:00 PM EST [facility] Outpatient Attender: Lavern Brown [place] [facility] 06/20/2019 07:45:0 0 AM EST [facility] ([facility] Immunizations Vaccine Date Status Description Data Source(s) New in 2012. IIV4 02/27/2020 10:31:00 AM EDT completed [facility] ([facility] Medications Medication Brand Name Start Date Product Form Dose Route Admi nistrative Instructions Pharmacy Instructions Status Indications Reaction Description Data Source(s) empagliflozin 10 MG Oral Tablet [Jardiance] Jardiance 03/18/2020 12:00:00 AM EDT ORAL active [facility] ([facility] cefdinir 300 MG Oral Capsule Cefdinir 04/19/2019 12:00:00 AM EST ORAL completed [facility] Clindamycin 150 MG Oral Capsule Clindamycin HCL 04/09/2019 12:00:00 A M EDT completed [facility] ([facility] Insurance Providers Payer name Policy type / Coverage type Policy ID Covered libertarian ID Covered libertarian's relationship to gregory Policy Gregory Plan Information [facility] [id number] SP [id number] [employer] MEDICARE COMPLETE - O/P [id number] 18 [id number] [employer] MEDICARE O/P [id number] 18 [id number] [facility] HE[facility] [id number] S [id number] [facility] [id number] SP [id number] [employer] MEDICARE-O/P [id number] Problems, Conditions, and Diagnoses Code Display Name Description Problem Type Effective Dates Data Source(s) E119 Type 2 diabetes mellitus without complic ations Type 2 diabetes mellitus without complications Diagnosis 06/18/2020 12:20:00 PM [facility] Results ID Date Data Source [id number] 07/10/2020 06:04:00 [place] [address] RESPIRATORY CARE REPORT ==== ---------NAME------- NUMBER SEX AGE ADMIT DISC. XRAY# F/C TYPEBACON SID L [id number] F 74 07/08/20 07/09/20 [id number] PALOMO O/P DATE OF : 1945 M/R# [id number] #: [id number] CCU1C LOCATION: EMERGENCY DEPT EKG [id number] COMP LETE:07/09/20 01:52 VMT [id number] PHYSICIAN: JOSESITO Fitzgerald Name Value Range Interpretation Code Description Data Su rce(s) Supporting Document(s) ID Date Data Source [id number] 07/09/2020 09:48:00 AM EST [facility] [address] [address] PHONE: [phone] FAX: [phone] Name .................. : ROSALBA Jimenez Acct Number.................. : [id number] ROOM. ................. : [facility] MR Number ................... : [id number] Stay type ............. : O/P Discharge Date......... ... : Admit Date ......... : 07/08/20 Admit Phys .................... : JOSESITO THOMPSON Date of ....... : 1945 Family Phys ................... : KEVIN PLEITEZ Phone .................. : [phone] Age ................................ : 74 Film# .................. .:[id number] Sex ................................. : F Unsigned transcriptions are preliminary reports and do not represent a medical or legal document CT THORAX W/O CONTRAST [id number] COMPLETE:07/08/20 20:16 3043 (REASON FOR CHEST: DYSPNEA CT OF THE CHEST WITHOUT CONTRAST: INDICATION: Dyspnea, COVID positive. FINDINGS: Mild patchy infiltrates are noted bilaterally. There are tiny bilateral pleural effusions. The heart is normal in size. There is no lymphadenopathy. Severe coronary artery calcifications are noted. The visualized upper abdomen demonstrates no acute abnormality. There is no acute osseous abnormality. IMPRESSION: Mild bilateral infiltrates. Findings are nonspecific in nature. Cannot exclude COVID infection. While performing the above CT examination, radiation dose reduction was accomplished utilizing automated exposure control, adjusting of the mA and kV based on the patient's body size and/or the use of imperative reconstructive techniques. CT dose: 554.7 mGycm Electronically Reviewed and Signed By Gerardo Coker M.D. , 07/09/20 09:48, [facility] Transcribe Initials: DZ , Transcribe Date: 07/08/20 21:34, Dictation Date: Copy for: KEVIN PUCKETT via fax Copy for: EMERGENCY DEPT via modem Copy for: [address] [place] [address] REC Page 1 of 1 Name Value Range Interpretation Code Description Data Su rce(s) Supporting Document(s) ID Date Data Source [id number] 07/09/2020 09:48:00 [place] [address] PHONE: [phone] FAX: [phone] Name .................. : ROSALBA Jimenez Acct Number.................. : [id number] ROOM. ................. : CCU1C MR Number ................... : [id number] Stay type ............. : O/P Discharge Date......... ... : Admit Date ......... : 07/08/20 Admit Phys .................... : JOSESITO THOMPSON Date of ....... : 1945 Family Phys ................... : KEVIN PLEITEZ Phone ..... ............. : [phone] Age ................................ : 74 Film# .................. .:[id number] Sex ................................. : F Unsigned t ranscriptions are preliminary reports and do not represent a medical or legal document CHEST PORTABLE [id number] COMPLETE:07/08/20 18:48 JOSE 3040 Reason(s): Congestion PORTABLE CHEST X-RAY: INDICATION: Congestion. FINDINGS: The lungs are moderately expanded without focal air space disease, pleural disease or pneumothorax. The cardiac silhouette is normal in size and contour. No acute osseous abnormality. IMPRESSION: No acute pulmonary process. Electronically Reviewed and Signed By Gerardo Coker M.D. , 07/09/20 09:48, [facility] Transcribe Initials: VALERIA , Transcribe Date: 07/08/20 20:47, Dictation Date: Copy for: KEVIN LAVERN via fax Copy for: EMERGENCY DEPT via modem Copy for: [address] [place] [address] REC Page 1 of 1 Name Value Range Interpretation Code Description Data Su rce(s) Supporting Document(s) ID Date Data Source [id number] 07/10/2020 06:20:00 AM [facility] Name Value Range Interpretation Code Description Data Su rce(s) Supporting Document(s) Creatine kinase.MB [Mass/volume] in Serum or Plasma 5.3 ng/mL 0.0-5. 3 [facility] ID Date Data Source [id number] 07/09/2020 08:58:00 AM [facility] Name Value Range Interpretation Code Description Data Su rce(s) Supporting Document(s) COMPREHENSIVE METABOLIC PANEL [facility] COMPREHENSIVE METABOLIC PANEL Sodium [Moles/volume] in Serum or Plasma 141 mEq/L 134 - 153 [facility] Potassium [Moles/volume] in Serum or Plasma 3.8 mEq/L 3.6 - 5.0 [facility] Chloride [Moles/volume] in Serum or Plasma 105 mEq/L 98 - 107 [facility] Carbon dioxide, total [Moles/volume] in Serum or Plasma 24 MEQ/L 22 - 30 [facility] Glucose [Mass/volume] in Serum or Plasma 87 MG/DL 70 - 99 [facility] BUN 24 MG/DL 7 - 21 [facility] Creatinine [Mass/volume] in Serum or Plasma 1.0 MG/DL 0.7 - 1.5 [facility] BUN/CREAT 24 8 - 27 [facility] Protein [Mass/volume] in Serum or Plasma 6.1 G/DL 6.3 - 8.2 L [facility] Albumin [Mass/volume] in Serum or Plasma 3.7 G/DL 3.9 - 5.0 L [facility] Globulin [Mass/volume] in Serum by calculation 2.4 GM/DL 2.4 - 3.2 [facility] A/G RATIO 1.5 0.8 - 2.0 [facility] Calcium [Mass/volume] in Serum or Plasma 8.5 MG/DL 8.4 - 10.2 [facility] Bilirubin.total [Mass/volume] in Serum or Plasma <0.7 MG/DL 0.2 - 1.3 [facility] Alkaline phosphatase [Enzymatic activity/volume] in Serum or Plasma 64 U/L 38 - 126 [facility] Aspartate aminotransferase [Enzymatic activity/volume] in Serum or Plasma 22 U/L 5 - 40 [facility] Alanine aminotransferase [Enzymatic activity/volume] in Seru m or Plasma 20 U/L 7 - 56 [facility] Anion gap 3 in Serum or Plasma 12.0 mmol/L 8.0 - 16.0 [facility] AGE 74 yrs [facility] al NON-AA GFR 57 mL/min [facility] AFR AMER GFR >60 [facility] Male GFR In terprentation 20-49 yrs >60 mL/min Normal 50-59 yrs >56 mL/min Normal 60-69 yrs >49 mL/min Normal 70-79yrs >42 mL/min Normal 80 and above >35 mL/min Normal Female GFR Interpretation 20-39 yrs >60 mL/min Normal 40-49 yrs >58 mL/min Normal 50-59 yrs >51 mL/min Normal 60-69 yrs >45 mL/min Normal 70-79 yrs >39 mL/min Normal 80 and above >32 mL/min Normal ID Date Data Source [id number] 07/09/2020 08:51:00 AM [facility] Name Value Range Interpretation Code Description Data Su rce(s) Supporting Document(s) TROPONIN T <0.01 NG/ML 0.00 - 0.10 [facility]ital TROPONIN T0.1 ng/ml Recommended as the c linical threshold value forTroponin T. ID Date Data Source [id number] 07/09/2020 08:49:00 AM [facility] Name Value Range Interpretation Code Description Data Su rce(s) Supporting Document(s) Magnesium [Mass/volume] in Serum or Plasma 2.0 MG/DL 1.7 - 2.2 [facility] ID Date Data Source [id number] 07/09/2020 08:49:00 AM [facility] Name Value Range Interpretation Code Description Data Su rce(s) Supporting Document(s) Phosphate [Mass/volume] in Serum or Plasma 3.8 MG/DL 2.5 - 4.5 [facility] ID Date Data Source [id number] 07/09/2020 08:03:00 AM [facility] Value Range Interpretation Code Description Data Su rce(s) Supporting Document(s) CBC W/AUTOMATED DIFF [facility] COMPLETE BLOOD COUNT Leukocytes [#/volume] in Blood by Automated count 6.1 10^3/uL 4.2 - 1 1.0 [facility] Erythrocytes [#/volume] in Blood by Automated count 4.46 10^6/uL 4. 20 - 5.40 [facility] Hemoglobin [Mass/volume] in Blood 13.6 g/dL 12.0 - 16.0 [facility] Hematocrit [Volume Fraction] of Blood by Automated count 40.8 % 3 7.0 - 47.0 [facility] Erythrocyte mean corpuscular volume [Entitic volume] by Auto mated count 91.5 fL 81.0 - 101 [facility] Erythrocyte mean corpuscular hemoglobin [Entitic mass] by Automated count 30.5 pg 27.0 - 34.0 [facility] Erythrocyte mean corpuscular hemoglobin concentration [Mass/volume] by Automated count 33.3 g/dL 31.0 - 36.0 [facility] Erythrocyte distribution width [Ratio] by Automated count 13.4 % 11.5 - 14.5 [facility] Platelets [#/volume] in Blood by Automated count 167 10^3/uL 150 - 45 0 [facility] Platelet mean volume [Entitic volume] in Blood by Automated count 11.1 fL 7.4 - 10.4 H [facility] Neutrophils/100 leukocytes in Blood by Automated count 67.1 % 37. 0 - 80.0 [facility] Lymphocytes/100 leukocytes in Blood by Manual count 18.1 % 25.0 - 40.0 L [facility] Monocytes/100 leukocytes in Blood by Automated count 13.7 % 3.0 - 8.0 H [facility] Eosinophils/100 leukocytes in Blood by Automated count 0.2 % 0.0 - 7.0 [facility] Basophils/100 leukocytes in Blood by Automated count 0.7 % 0.0 - 2.5 [facility] %IG 0.2 % 0.0 - 0.0 [facility] %NRBC 0.0 % 0.0 - 0.0 [facility] al Neutrophils [#/volume] in Blood by Automated count 4.08 10^3/uL 2.00 - 6.90 [facility] Lymphocytes [#/volume] in Blood by Automated count 1.10 10^3/uL 0.60 - 3.40 [facility] Monocytes [#/volume] in Blood by Automated count 0.83 10^3/uL 0.00 - 0.90 [facility] Eosinophils [#/volume] in Blood by Automated count 0.01 10^3/uL 0.00 - 0.70 [facility] Basophils [#/volume] in Blood by Automated count 0.04 10^3/uL 0.00 - 0.20 [facility] #IG 0.01 10^3/uL 0.00 - 0.10 [facility] #NRBC 0.00 10^3/uL 0.00 - 0.00 [facility] MANUAL DIFF NOT INDICATED [facility] RBC MORPH NOT INDICATED [facility] ID Date Data Source [id number] 07/08/2020 05:26:00 PM EST [facility] 1 OrderSheet [facility] Emergency Department [address] [place] [address] Phone #: ext- [phone] 07/08/2020 17:26 Patient: SID NAVARRETE Sex: F : 1945 Age: 74yWEIGHT:101.1 kg (S) HEIGHT:68 inches (S) BMI:33.9ALLERGIES: NoneCHIEF COMPLAINT: coughDIAGNOSIS: Severe acute respiratory syndrome coronavirus, CardiomyopathyLAB ORDERSOrder Description Priority Entered Acknowledged InitialedBMP STAT 17:51 2020 17:52 Alexandru Adler ; Manan LEVINECBC w Diff STAT 17:51 07/08/2020 17:52 Alexandru Adler ; Manan RNBNP STAT 17:51 07/08/2020 17:52 Alexandru Adler ; Manan RNTroponin-T STAT 17:51 07/08/2020 17:52 Alexandru Adler ; Manan RNTSH STAT 17:51 07/08/2020 17:52 Alexandru Adler ; Manan RNLactic Acid STAT 17:51 07/08/2020 17:52 Alexandru Adler ; Manan RNCOVID-19 CAH STAT 17:52 07/08/2020 17:52 Malcolm(Symptomatic as Alexandru Hollingsworth ; Manan RNDefined by CDC)(06/26/2020) (FirstTest) (NotHospitalized) (Not) (NotResident inCongregate CareSetting) (NotEmployed inHealthcare Setting)Influenza Nasal A B STAT 18:59 07/08/2020 19:04 Alexandru Adler ; Manan LEVINEDIAGNOSTIC STUDY ORDERSOrder Description Priority Entered Acknowledged InitialedChest Portable 1 STAT 17:51 07/08/2020 17:52 Alexandru Christensen ; Manan RN 2 OrderSheet [facility] Emergency Department [address] [place] [address] Phone #: ext- [phone] 07/08/2020 17:26 Patient: SID NAVARRETE Sex: F : 1945 Age: 74y(Oxygen?(No)) Reason for Study: CongestionMEDICATION/IV/DRIP/FLUID ORDERSOrder Description Priority Entered Acknowledged InitialedAcetaminophen PO 17:51 07/08/2020 18:04 Bnypr323 mg (NOW x1) Alexandru Hollingsworth ; Manan RNZithromax IVPB 500 18:58 07/08/2020 19:16 Petermg X1 Dose: 500 Alexandru Hollingsworth ; Manan RNmg with DextroseIntravenous 250 mL(NOW x1)GENERAL ORDERSOrder Description Priority Entered Acknowledged InitialedEKG 17:51 07/08/2020 17:51 [place] Alexandru Hollingsworth ; portainer operatorJuan Rao [id number] - 19:05 07/08/2020 19:15 MalcolmHospitalist Alexandru Hollingsworth ; Manan LEVINE[Electronically signed by Malcolm Hinkle RN (20:55 07/08/2020)][Electronically signed by Alexandru Hollingsworth (23:52 07/08/2020)][Electronically locked by Malcolm Hinkle RN (20:55 07/08/2020)] Name Value Range Interpretation Code Description Data Su rce(s) Supporting Document(s) ID Date Data Source [id number] 07/08/2020 05:26:00 PM EST [facility] 1 Medication Reconciliation Report [facility] Emergency Department [address] [place] [address] Phone #: ext- [phone] 07/08/2020 17:26 Patient: SID NAVARRETE Sex: F : 1945 Age: 74yWeight: 101.1 kgHeight/Length: 68 in.BMI: 33.9ALLERGIES: NoneThe patient's Home Medications are listed below:THE FOLLOWING MEDICATIONS NEED TO BE RECONCILED: Atorvastatin Calcium Oral (40 mg), daily Bisoprolol Fumarate Oral (5 mg), daily Dologesic Oral 8mg, daily hydroCHLOROthiazide Oral (25 mg), daily Jardiance Oral (25 mg), daily PriLOSEC Oral 20 mg, daily Quilapril 60mg, daily Tresiba Subcutaneous 78 units, 2x a day TruBiotics OralThe source(s) of the original Home Medication information:Not obtained.The following Medications were given to the patient in the Emergency Department:Acetaminophen [PO] PO 650 mg, administered: 18:04 07/08/2020Zithromax [IVPB] IVPB bolus 0, then 500 mg 250 mL/hr, administered: 19:16 07/08/2020The following Medications were prescribed to the patient:None. 2 Medication Reconciliation Report [facility] Emergency Department [address] [place] [address] Phone #: ext- [phone] 07/08/2020 17:26 Patient: SID NAVARRETE Sex: F : 1945 Age: 74y Name Value Range Interpretation Code Description Data Su rce(s) Supporting Document(s) ID Date Data Source [id number] 07/08/2020 05:26:00 PM [facility] 1 Medication Administration Record [facility] Emergency Department [address] [place] [address] Phone #: ext- [phone] 07/08/2020 17:26 Patient: SID NAVARRETE Sex: F : 1945 Age: 74yWeight: 101.1 kgHeight/Length: 68 inBMI: 33.9ALLERGIES: None Date/Time Medication Administered Medication OrderedGiven ACETAMINOPHEN [PO] Acetaminophen PO 650 mg (NOW18:04 07/08/2020 Dose: 650 mg Tablets PO x1)LI Lopestart ZITHROMAX [IVPB] (AZITHROMYCIN) Zithromax IVPB 500 mg X1 Dose:19:16 07/08/2020 Dose: 500 mg IVPB 500 mg with Dextrose IntravenousPeter JULIANNA Hinkle Rate: 250 mL/hr over 1 hour(s) 250 mL (NOW x1)---- Dispensed: 250 mL bagStop Site: #1 left AC20:30 eter JULIANNA Hinkle Name Value Range Interpretation Code Description Data Su rce(s) Supporting Document(s) ID Date Data Source [id number] 07/08/2020 05:26:00 PM [facility] 1 General Instructions [facility] Emergency Department [address] [place] [address] Phone #: ext- [phone] 07/08/2020 17:26 Patient: SID NAVARRETE Sex: F : 1945 Age: 74yCoronavirus COVID-19 with pneumonia.Acute ischemic cardiomyopathy.(Electronically signed by Alexandru Hollingsworth 07/08/2020 23:52) Name Value Range Interpretation Code Description Data Su rce(s) Supporting Document(s) ID Date Data Source [id number] 07/08/2020 05:26:00 PM EST [facility] 1 Clinical Report - Nurses [facility] Emergency Department [address] [place] [address] Phone #: ext- [phone] 07/08/2020 17:26 Patient: SID NAVARRETE Sex: F : 1945 Age: 74yTRIAGEArrived by EMS. Historian: patient. Unaccompanied.Acuity: LEVEL 3.Chief Complaint: MUSCLE ACHES (cough shaky).Alert.Onset. (several days). She has had a cough. 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 SEPSIS SCREEN NEGATIVE. No suspected or confirmedsigns of infection present. --17:35 07/08/20 Madai Tripp R.N.17:26 07/08/20. BP: 163/86. MAP: 111. HR: 93. RR: 15. O2 saturation: 93% on room air. Temp: 100.8 F.Pain level now: 0/10. --17:35 07/08/20 Madai Tripp R.N.( bs 241). --17:36 07/08/20 Madai Tripp R.N.Weight: 101.1 kg stated. Height/Length: 68 inches Per Patient. BMI: 33.9. --17:26 07/08/20 Madai Tripp R.N.MedicationsQuilapril 60mg, daily. --17:29 07/08/20 Madai Tripp R.N. hydroCHLOROthiazide Oral (Tablet 25 mg), daily. TruBiotics Oral. --17:29 07/08/20 Madai Tripp R.N. Bisoprolol Fumarate Oral (Tablet 5 mg), daily. --17:29 07/08/20 Madai Tripp R.N. PriLOSEC Oral 20 mg, daily. --17:29 07/08/20 Madai Tripp R.N. Dologesic Oral 8mg, daily. --17:30 07/08/20 Madai Tripp R.N. Atorvastatin Calcium Oral (Tablet 40 mg), daily. --17:30 07/08/20 Madai Tripp R.N. Tresiba Subcutaneous 78 units, 2x a day. --17:31 07/08/20 Madai Tripp R.N. Jardiance Oral (Tablet 25 mg), daily. --17:31 07/08/20 Madai Tripp R.N.AllergiesNone. --17:27 07/08/20 Madai Tripp R.N.PROBLEMS:Hypertension.Hypercholesterolemia.Diabetes Mellitus. 2 Clinical Report - Nurses [facility] Emergency Department [address] [place] [address] Phone #: ext- [phone] 07/08/2020 17:26 [id number] Sex: F : 1945 Age: 74yArthritis.GERD. --17:32 07/08/20 Madai Tripp R.N.ADDITIONAL SURGERIES:Hysterectomy. --17:32 07/08/20 Madai Tripp R.N.HistoryPAST MEDICAL HX: Immunizations: up-to-date. The patient has had a hysterectomy.SOCIAL HX: Never smoker. No alcohol use or drug use. She was offered HIV testing but declined andhepatitis C testing but declined. She has not traveled outside the [place]Infectious disease exposure: No infectious disease exposure. Patient is not a known carrier of tuberculosis,hepatitis, HIV, MRSA or VRE. Patient is not a known carrier of CRE.SELF HARM ASSESSMENT: Self harm assessment was performed. The patient answered "no" to thequestion(s) "Have you recently felt down, depressed, or hopeless?", "Do you have thoughts of harming orkilling yourself?", "Do you have a plan for harming or killing yourself?", "Have you recently had thoughtsabout harming or killing others?", "Do you have any dangerous items in your possession?", "Have younoticed less interest or pleasure in doing things?", "Are you here because you tried to hurt yourself?" and"Have you ever tried to hurt yourself before today?".ABUSE ASSESSMENT: Abuse assessment. Abuse denied. No suspicion of abuse. No report of abuse.NUTRITIONAL RISK ASSESSMENT: The nutritional risk assessment revealed no deficiencies.LEARNING NEEDS ASSESSMENT: The learning needs assessment revealed no barriers.FALL RISK ASSESSMENT: Fall risk assessment completed. Risk factors identified include patient historyof fall and impairment of mobility. Fall interventions initiated. Patient placed on stretcher. Instructions givento patient including fall prevention information. Verbalizes understanding.FUNCTIONAL ASSESSMENT: Functional assessment performed: uses cane.SKIN INTEGRITY ASSESSMENT: Skin integrity risk assessment completed. No skin integrity riskidentified. --17:35 07/08/20 Madai Tripp R.N.SOCIAL HX: The patient has not traveled outside the [place]Infectious disease exposure: The patient was exposed to Coronavirus. (states she had +covid in thebuilding but states she does not think she has been around them). --17:36 07/08/20 Madai Tripp R.N.PAST MEDICAL HX: ( dizzy). --17:36 07/08/20 Madai Tripp R.N.FAMILY HX:Father: Coronary Artery Disease. --18:04 07/08/20 Alexandru Hollingsworth.Interventions 3 Clinical Report - Nurses [facility] Emergency Department [address] [place] [address] Phone #: ext- [phone] 07/08/2020 17:26 Patient: SID NAVARRETE [facility]#: [id number] Sex: F : 1945 Age: 74y Identification band on patient. To treatment room. --17:35 07/08/20 Madai Tripp R.N.PHYSICAL ASSESSMENTTo room via stretcher.GENERAL / NEURO / PSYCH: Alert. Oriented X 4. Appears anxious and in distress.HEENT: Pupils equal, round and reactive to light. No facial asymmetry noted. Mucous membranes arepink.RESPIRATORY: Respirations not labored. Cough. Chest nontender. Breath sounds within normallimits.CVS: Normal sinus rhythm noted. Capillary refill less than 2 seconds. Pulses within normal limits.GI / : Abdomen soft and nontender and normal bowel sounds.SKIN: Skin intact. Skin is warm and dry. Normal skin turgor. --17:52 07/08/20 Malcolm Hinkle RN.NURSING PROGRESS NOTES17:37 07/08/2020 Site #1 started prior to arrival by EMS via IV in the left antecubital space with an 20gangiocath. --17:37 07/08/20 Madai Tripp R.N. deputy treasurer and NIBP monitor placed on patient; monitor alarms on. Patient gowned. Reassurance given. Two patient identifiers checked. Call light placed in reach. Side rails up x 2. Bed placed in lowest position. Brakes of bed on. Patient ready for evaluation. --17:37 07/08/20 Madai Tripp R.N. EKG time: (17:31 07/08/2020). EKG was performed by a tech and shown to the ED physician. --17:42 07/08/20 [place] portainer operatorJuan ER Tech1 Patient ID band checked for patient name and birthdate: patient confirmed. COVID-19 specimen obtained by RN via nasopharyngeal swab. Labeled in the presence of the patient and sent to lab. --17:52 07/08/20 Malcolm Hinkle RN Finger stick glucose: 250 mg/dL; performed by nurse; result shown to the ED physician. --17:55 07/08/20 Malcolm Hinkle RN 17:55 07/08/20. BP: 156/70. MAP: 98. HR: 92. RR: 20. O2 saturation: 94% on room air. Temp: 102.9 F (oral). Pain level now: 0/10. --17:58 07/08/20 Malcolm Hinkle RN 18:02 07/08/20. O2 saturation: 96% on nasal cannula at 2 liters/minute. --18:03 07/08/20 Malcolm Hinkle RN 18:04 07/08/2020 Acetaminophen PO Tablets 650 mg given. Allergies verified and confirmed 5 rights. Information reviewed with patient including reason for taking this medication. Verbalizes understanding. --18:04 07/08/20 Malcolm Hinkle RN Patient ID band checked for patient name and birthdate: patient confirmed. Flu swab obtained by physician via nasal swab and nasal pharyngeal swab. Labeled in the presence of the patient and sent to lab (per Dr Hollingsworth). --18:57 07/08/20 Malcolm Hinkle RN 4 Clinical Report - Nurses [facility] Emergency Department [address] [place] [address] Phone #: ext- [phone] 07/08/2020 17:26 Patient: SID NAVARRETE Sex: F : 1945 Age: 74y 19:16 07/08/2020 Started 500 mg of Zithromax (Azithromycin) IVPB in bag #1 250 mL; at 250 mL/hr over 1 hour(s) via site #1. via IV pump. Allergies verified and confirmed 5 rights. IV patency established. IV site checked: no pain, redness, or swelling. IV flushed thoroughly pre- and post-medication administration. Information reviewed with patient including reason for taking this medication. Verbalizes understanding. --19:16 07/08/20 Malcolm Hinkle RN 19:19 07/08/20. BP: 154/75. MAP: 101. HR: 88. RR: 20. O2 saturation: 98% on nasal cannula at 2 liters/minute. Pain level now: 0/10. --19:19 07/08/20 Malcolm Hinkle RN ( hospitalist is in the room to admit pt to AIU). --19:19 07/08/20 Malcolm Hinlke RN 19:53 07/08/20. BP: 157/75. MAP: 102. HR: 92. RR: 20. O2 saturation: 97%. Temp: 99 F. Pain level now: 0/10. --19:53 07/08/20 Malcolm Hinkle RN ( pt able to ambulate to the bedside commode with ease). --19:53 07/08/20 Malcolm Hinkle RN 20:30 07/08/2020 Zithromax IVPB via IV site #1 Discontinued: infused. Total amount infused: 250 mL. IV patency established. IV site checked: no pain, rednes s, or swelling. IV flushed thoroughly. --20:35 07/08/20 Malcolm Hinkle RN.DISPOSITION / DISCHARGE Disposition: observation for further evaluation and cardiac monitoring. Transported via stretcher by nurse with monitor, IV, O2 and mask. Report was given to a nurse via a phone call and visit overview. Report included information regarding patient's care and treatment and current and abnormal vital signs. Report included treatment information regarding medications given or pending; type and amount of IV fluids and medications infusing and total volume infused. All questions were answered. Report was ackno wledged and care was transferred. (Shena LEVINE). Bed obtained and ready (ccu 1). --20:36 07/08/20 Malcolm Hinkle RN 20:35 07/08/20. BP: 138/70. MAP: 92. HR: 91. RR: 20. O2 saturation: 97%. Temp: 99 F. Pain level now: 0/10. --20:36 07/08/20 Malcolm Hinkle RN Departure time: 20:39 07/08/2020. --20:39 07/08/20 Malcolm Hinkle RN 20:50 07/08/20. Report was given in person and at bedside. (Shena LEVINE). --20:55 07/08/20 Malcolm Hinkle RN.Locked/Released at 07/08/2020 20:55 by Malcolm Hinkle RN 5 Clinical Report - Nurses [facility] Emergency Department [address] [place] [address] Phone #: ext- [phone] 07/08/2020 17:26 Patient: SID NAVARRETE Sex: F : 1945 Age: 74y Name Value Range Interpretation Code Description Data Su rce(s) Supporting Document(s) ID Date Data Source [id number] 07/08/2020 05:26:00 PM EST [facility] 1 Clinical Report - Physicians/Mid Levels [facility] Emergency Department [address] [place] [address] Phone #: ext- [phone] 07/08/2020 17:26 Patient: SID NAVARRETE Sex: F : 1945 Age: 74y Time Seen: 17:51 07/08/2020. Arrived- By ambulance. Historian- patient. Disposition decision: 19:18 07/08/2020.HISTORY OF PRESENT ILLNESS Chief Complaint: COUGH. shaky. This started several weeks and is still present. The illness is described as moderate. The patient has had a cough. No sputum production, difficulty breathing, chest discomfort or pain or fever. No muscle aches, chills, sore throat, nasal congestion or sinus drainage. Additional history - No known contact with a sick individual. No recent travel. (Several residents at her apartment have COVID. She's had several weeks of cough, but felt shaky over the last several days. She's not aware of any fevers. No shortness of breath at rest and no chest or rib pain.). Similar symptoms previously. None. Recent medical care: Not recently seen/assessed.REVIEW OF SYSTEMSThe patient has had a headache. No vomiting, diarrhea, pedal edema, difficulty with urination or joint pain.All other systems reviewed and are negative.PAST HISTORYSee nurses notes. Problems: Hypercholesterolemia. Hypert ension. Arthritis. Diabetes Mellitus. GERD. Additional Surgeries: Cholecystectomy. Hysterectomy. Medications: Jardiance Oral (Tablet 25 mg), daily. Tresiba Subcutaneous 78 units, 2x a day. 2 Clinical Report - Physicians/Mid Levels [facility] Emergency Department [address] [place] [address] Phone #: ext- [phone] 07/08/2020 17:26 Patient: SID NAVARRETE Sex: F : 1945 Age: 74y Atorvastatin Calcium Oral (Tablet 40 mg), daily. Dologesic Oral 8mg, daily. PriLOSEC Oral 20 mg, daily. Bisoprolol Fumarate Oral (Tablet 5 mg), daily. hydroCHLOROthiazide Oral (Tablet 25 mg), daily. TruBiotics Oral. Quilapril 60mg, daily. Allergies: None.SOCIAL HISTORYNever smoker. No alcohol use.FAMILY HISTORYFather: Coronary Artery Disease.ADDITIONAL NOTESThe nursing notes have been reviewed.PHYSICAL EXAMVital Signs: 07/08/2020 17:55 BP: 156/70. MAP: 98. HR: 92. RR: 20. O2 saturation: 94% on room air.Temp: 102.9 F. Pain level now: 0/10.Appearance: Alert. No acute distress.Eyes: Pupils equal, round and reactive to light. Eyes normal inspection.ENT: Ears normal. Nose normal. Pharynx normal. Uvula midline.Neck: Normal inspection. Neck supple.CVS: Normal heart rate and rhythm. Heart sounds normal. Pulses normal.Respiratory: No respiratory distress. Mildly decreased breath sounds in the bases bilaterally. Painlessinspiration. No crackles or wheezes.Abdomen: Soft and nontender. Obese.Back: Normal inspection.Skin: Skin warm. Normal skin color. No rash. Nayely l skin turgor.Extremities: Extremities exhibit normal ROM. No lower extremity edema.Neuro: Oriented X 3. No motor deficit. No sensory deficit.LABS, X-RAYS, AND EKGEKG: EKG time: 17:31 07/08/2020. Normal sinus rhythm. Normal P waves. LBBB. Poor R waveprogression. Left axis deviation. Normal QT. T wave inversion in lead I and aVL. Changes presentwhen compared to prior EKG. (2018). The study has been interpreted contemporaneously by me.Interpretation time: 17:52 07/08/2020.Laboratory Tests: Influenza Nasal A B: (JESUS: 07/08/2020 18:55) ( MsgRcvd 07/08/2020 19:54) Final results Test Result Flag Units (Reference) INFLUENZA A NEGATIVE (NORMAL: NEGAT 3 Clinical Report - Physicians/Mid [facility] Emergency Department [address] [place] [address] Phone #: ext- [phone] 07/08/2020 17:26 Patient: SID NAVARRETE Sex: F : 1945 Age: 74y INFLUENZA B NEGATIVE (NORMAL: NEGAT INFLUENZA A REENTER NEGATIVE (NORMAL: NEGAT INFLUENZA B REENTER NEGATIVE (NORMAL: NEGAT PROCEDURAL CONTROL VALID KIT LOT # _[id number] 07/08/20.DW . KIT EXP DATE _25-87-11 48/26/21.DW .The Influenza A utilizing an isothermal nucleic acid amplification technology for thequalitativedetection of influenza A and B viral RNA.Negative results do not preclude influenza virus infection and shouldnot beused as the sole basis for diagnosis, treatment or other patient managementdecisions.COVID-19 CAH: (JESUS: 07/08/2020 17:48) ( MsgRcvd 07/08/2020 18:27) Final results Test Result Flag Units (Reference) COVID-19 DETECTED COVID-19 REENTER DETECTED { PROCEDURAL CONTROL VALID KIT LOT # _[id number] 07/08/20.1825.DW . KIT EXP DATE _23-09-53 68/26/21.1825.DW . NORMAL RANGE IS NOT DETECTEDNEGATIVE RESULTS SHOULD BE TREATEDAS PRESUMPTIVE AND, IF INCONSISTENT WITHCLINICAL SIGNS AND SYMPTOMS OR NECESSARY FOR PATIENT MANAGEMENT, SHOULDBETESTED WITH DIFFERENT AUTHORIZED OR CLEARED MOLECULAR TESTS. NEGATIVE RESULTSDO NOT PRECLUDE [id number] AND SHOULD NOT BE USED THE SOLE BASISFOR PATIENT MANAGEMENT DECISIONS.BMP: (JESUS: 07/08/2020 17:40) ( MsgRcvd 07/08/2020 18:25) Final results Test Result Flag Units (Reference) BASIC METABOLIC PANEL BASIC METABOLIC PANEL SODIUM 135 mEq/L (134 - 153) POTASSIUM 3.9 mEq/L (3.6 - 5.0) CHLORIDE 101 mEq/L (98 - 107) CO2 21 L MEQ/L (22 - 30) GLUCOSE 261 H MG/DL (70 - 99) BUN 23 H MG/DL (7 - 21) CREATININE 1.0 MG/DL (0.7 - 1.5) BUN/CREAT 23 (8 - 27) CALCIUM 8.3 L MG/DL (8.4 - 10.2) ANION GAP 13.0 mmol/L (8.0 - 16.0) AGE 74 yrs AFR AMER GFR >60 NON-AA GFR 57 mL/min Male GFR Interprentation 20-49 yrs >60 mL/min Ugmkzc16-64 yrs >56 mL/min Normal 60-69 yrs >49 mL/min Normal 70-79yrs>42 mL/min Normal 80 and above >35 mL/min Normal Female GFRInterpretation 20-39 yrs >60 mL/min Normal 40-49 yrs >58 mL/minNormal 50-59 yrs >51 mL/min Normal 60-69 yrs >45 mL/min Psvlfs33-60 yrs >39 mL/min Normal 80 and above >32 mL/min NormalCBC w Diff: (JESUS: 07/08/2020 17:40) ( MsgRcvd 07/08/2020 18:07) Final results Test Result Flag Units (Reference) CBC W/AUTOMATED DIFF COMPLETE BLOOD COUNT WBC 9.9 10/uL (4.2 - 11.0) RBC 4.61 10/uL (4.20 - 5.40) HEMOGLOBIN 14.0 g/dL (12.0 - 16.0) HEMATOCRIT 42.0 % (37.0 - 47.0) MCV 91.1 fL (81.0 - 101) MCH 30.4 pg (27.0 - 34.0) 4 Clinical Report - Physicians/Mid Levels [facility] Emergency Department [address] [place] [address] Phone #: ext- [phone] 07/08/2020 17:26 Patient: SID NAVARRETE Sex: F : 1945 Age: 74y MCHC 33.3 g/dL (31.0 - 36.0) RDW 13.4 % (11.5 - 14.5) PLATELETS 163 10/uL (150 - 450) MPV 11.0 H fL (7.4 - 10.4) NEUT 81.8 H % (37.0 - 80.0) LYMPH 7.7 L % (25.0 - 40.0) MONO 9.5 H % (3.0 - 8.0) EOS 0.3 % (0.0 - 7.0) BASO 0.4 % (0.0 - 2.5) %IG 0.3 H % (0.0 - 0.0) %NRBC 0.0 % (0.0 - 0.0) #NEUT 8.10 H 10/uL (2.00 - 6.90) #LYMPH 0.76 10/uL (0.60 - 3.40) #MONO 0.94 H 10/uL (0.00 - 0.90) #EOS 0.03 10/uL (0.00 - 0.70) #BASO 0.04 10/uL (0.00 - 0.20) #IG 0.03 10/uL (0.00 - 0.10) #NRBC 0.00 10/uL (0.00 - 0.00) MANUAL DIFF NOT INDICATED RBC MORPH NOT INDICATED BNP: (JESUS: 07/08/2020 17:40) ( [facility] 07/08/2020 18:38) Final results Test Result Flag Units (Reference) BNP 120 PG/ML (0 - 125) Troponin-T: (JESUS: 07/08/2020 17:40) ( [facility] 07/08/2020 18:31) Final results Test Result Flag Units (Reference) TROPONIN T <0.01 NG/ML (0.00 - 0.10) TROPONIN T0.1 ng/ml Recommended as the clinical threshold value forTroponin T. TSH: (JESUS: 07/08/2020 17:40) ( [facility] 07/08/2020 18:38) Final results Test Result Flag Units (Reference) TSH 0.77 uIU/mL (0.47 - 5.01) Lactic Acid: (JESUS: 07/08/2020 17:40) ( [facility] 07/08/2020 18:05) Final results Test Result Flag Units (Reference) LACTIC ACID 1.7 MMOL/L (0.2 - 2.2) Chest Portable 1 View: (JESUS: 07/08/2020 17:51) ( [facility] 07/08/2020 18:49) In Progress CHEST PORTABLE Reason(s): Congestion TRANSPORTATION: P IV? O2? Oxygen?(No) Room: ED.PROGRESS AND PROCEDURESCourse of Care: 19:10 07/08/20. Despite no significant respiratory distress or hypoxemia, patient has anew left bundle branch block. Unclear is patient has underlying coronary artery disease. BNP is normal. Noelectrolyte abnormalities. Zithromax started for suspected COVID pneumonia. Hospitalist called. 21:24 07/08/20. Due to new LBBB and COVID, patient admitted to hospitalist service. CT scan ordered. 5 Clinical Report - Physicians/Mid Levels [facility] Emergency Department [address] [place] [address] Phone #: [phone] 07/08/2020 17:26 Patient: SID NAVARRETE Sex: F : 1945 Age: 74y 23:52 07/08/20. CT thorax shows bilateral infiltrates consistent with COVID. No pulmonary embolism. Critical care performed (30 minutes). Time is exclusive of separately billable procedures. Time includes: direct patient care, patient reassessment and medical consultation. Disposition: Observation in the Acute Inpatient Unit, Monitored. 19:12.CLINICAL IMPRESSION Coronavirus COVID-19 with pneumonia. Acute ischemic cardiomyopathy.(Electronically signed by Alexandru Hollingsworth 07/08/2020 23:52) Name Value Range Interpretation Code Description Data Su rce(s) Supporting Document(s) ID Date Data Source [id number] 07/08/2020 05:26:00 PM EST [facility] Addenda for SID NAVARRETE VisitID: [id number] Date: 19:45Medication reconciliation request faxed to [employer]; Overview faxed to [facility](Electronically signed by Jesse iHnkle - 07/08/2020 19:45) Name Value Range Interpretation Code Description Data Su rce(s) Supporting Document(s) ID Date Data Source [id number] 07/10/2020 06:21:00 AM EST [facility] Name Value Range Interpretation Code Description Data [facility](s) Supporting Document(s) Creatine kinase.MB [Mass/volume] in Serum or Plasma 4.8 ng/mL 0.0-5. 3 [facility] ID Date Data Source [id number] 07/09/2020 12:10:00 AM EST [facility] Name Value Range Interpretation Code Description Data [facility] rce(s) Supporting Document(s) TROPONIN T <0.01 NG/ML 0.00 - 0.10 [facility] ospital TROPONIN T0.1 ng/ml Recommended as the c linical threshold value forTroponin T. ID Date Data Source [id number] 07/08/2020 07:51:00 PM EST [facility] Name Value Range Interpretation Code Description Data [facility](s) Supporting Document(s) Influenza virus A Ag [Presence] in Nasopharynx by Immunoassa y NEGATIVE NORMAL: NEGATIVE [facility] Influenza virus B Ag [Presence] in Nasopharynx by Immunoassa y NEGATIVE NORMAL: NEGATIVE [facility] NEGATIVENEGATIVE PROCEDURAL CO NTROL VALID KIT LOT # _[id number] 07/08/20.DW . KIT EXP DATE _84-28-91 07/08/20.DW .The Influenza A & B assay is a rapid molecular in vitro diagnostic testutilizing an isothermal nucleic acid amplification technology for thequalitative detection of influenza A and B viral RNA.Negative results do not preclude influenza virus infection and should not beused as the sole basis for diagnosis, treatment or other patient managementdecisions. ID Date Data Source [id number] 07/08/2020 05:48:00 PM EST [facility] Name Value Range Interpretation Code Description Data [facility](s) Supporting Document(s) COVID19 Case rprt DETECTED [facility] This lab was ordered by [facility] and reported by [facility]. ID Date Data Source [id number] 07/08/2020 06:26:00 PM [facility] DETECTEDDETECTED{ PROCEDURAL C ONTROL VALID KIT LOT # _[id number] 07/08/20.DW . KIT EXP DATE _02-77-02 07/08/20.DW . NORMAL RANGE IS NOT DETECTEDNEGATIVE RESULTS SHOULD BE TREATED PRESUMPTIVE AND, IF INCONSISTENT WITHCLINICAL SIGNS AND SYMPTOMS OR NECESSARY FOR PATIENT MANAGEMENT, SHOULD BETESTED WITH DIFFERENT AUTHORIZED OR CLEARED MOLECULAR TESTS. NEGATIVE RESULTSDO NOT PRECLUDE SARS-CoV-2 INFECTION AND SHOULD NOT BE USED THE SOLE BASISFOR PATIENT MANAGEMENT DECISIONS. Name Value Range Interpretation Code Description Data Su rce(s) Supporting Document(s) ID Date Data Source [id number] 07/10/2020 07:56:00 AM [facility] Name Value Range Interpretation Code Description Data Su rce(s) Supporting Document(s) C reactive protein [Mass/volume] in Serum or Plasma by High sensitivity method 46.25 MG/L 1.00 - 3.00 H [facility] CDC/[facility] HS-CRP CUT-OFF: RELATIVE RISK: <1.0 mg/L Low 1.0 - 3.0 mg/L Average >3.0 mg/L High Optimally, the average of HS-CRP results repeated two weeks apart should be used for risk assessment. ID Date Data Source [id number] 07/10/2020 06:20:00 AM [facility] Name Value Range Interpretation Code Description Data Su rce(s) Supporting Document(s) Creatine kinase.MB [Mass/volume] in Serum or Plasma 3.7 ng/mL 0.0-5. 3 [facility] ID Date Data Source [id number] 07/08/2020 06:38:00 PM [facility] Name Value Range Interpretation Code Description Data Su rce(s) Supporting Document(s) Thyrotropin [Units/volume] in Serum or Plasma by Detec tion limit <= 0.05 mIU/L 0.77 uIU/mL 0.47 - 5.01 [facility] ID Date Data Source [id number] 07/08/2020 06:38:00 PM [facility] Name Value Range Interpretation Code Description Data Su rce(s) Supporting Document(s) BNP 120 PG/ML 0 - 125 [facility] al ID Date Data Source [id number] 07/08/2020 06:31:00 PM EST [facility] Name Value Range Interpretation Code Description Data Su rce(s) Supporting Document(s) TROPONIN T <0.01 NG/ML 0.00 - 0.10 [facility] ospital TROPONIN T0.1 ng/ml Recommended as the c linical threshold value forTroponin T. ID Date Data Source [id number] 07/08/2020 06:23:00 PM EST [facility] Name Value Range Interpretation Code Description Data [facility](s) Supporting Document(s) BASIC METABOLIC PANEL [facility] BASIC METABOLIC PANEL Sodium [Moles/volume] in Serum or Plasma 135 mEq/L 134 - 153 [facility] Potassium [Moles/volume] in Serum or Plasma 3.9 mEq/L 3.6 - 5.0 [facility] Chloride [Moles/volume] in Serum or Plasma 101 mEq/L 98 - 107 [facility] Carbon dioxide, total [Moles/volume] in Serum or Plasma 21 MEQ/L 22 - 30 L [facility] Glucose [Mass/volume] in Serum or Plasma 261 MG/DL 70 - 99 H [facility] BUN 23 MG/DL 7 - 21 H [facility] Creatinine [Mass/volume] in Serum or Plasma 1.0 MG/DL 0.7 - 1.5 [facility] BUN/CREAT 23 8 - 27 [facility] Calcium [Mass/volume] in Serum or Plasma 8.3 MG/DL 8.4 - 10.2 L [facility] Anion gap 3 in Serum or Plasma 13.0 mmol/L 8.0 - 16.0 [facility] AGE 74 yrs [facility] al AFR AMER GFR >60 [facility] NON-AA GFR 57 mL/min [facility] Male GFR Inter prentation 20-49 yrs >60 mL/min Normal 50-59 yrs >56 mL/min Normal 60-69 yrs >49 mL/min Normal 70-79yrs >42 mL/min Normal 80 and above >35 mL/min Normal Female GFR Interpretation 20-39 yrs >60 mL/min Normal 40-49 yrs >58 mL/min Normal 50-59 yrs >51 mL/min Normal 60-69 yrs >45 mL/min Normal 70-79 yrs >39 mL/min Normal 80 and above >32 mL/min Normal ID Date Data Source [id number] 07/08/2020 06:06:00 PM EST [facility] Name Value Range Interpretation Code Description Data Su rce(s) Supporting Document(s) CBC W/AUTOMATED DIFF [facility] COMPLETE BLOOD COUNT Leukocytes [#/volume] in Blood by Automated count 9.9 10^3/uL 4.2 - 1 1.0 [facility] Erythrocytes [#/volume] in Blood by Automated count 4.61 10^6/uL 4. 20 - 5.40 [facility] Hemoglobin [Mass/volume] in Blood 14.0 g/dL 12.0 - 16.0 [facility] Hematocrit [Volume Fraction] of Blood by Automated count 42.0 % 3 7.0 - 47.0 [facility] Erythrocyte mean corpuscular volume [Entitic volume] by Auto mated count 91.1 fL 81.0 - 101 [facility] Erythrocyte mean corpuscular hemoglobin [Entitic mass] by Automated count 30.4 pg 27.0 - 34.0 [facility] Erythrocyte mean corpuscular hemoglobin concentration [Mass/volume] by Automated count 33.3 g/dL 31.0 - 36.0 [facility] Erythrocyte distribution width [Ratio] by Automated count 13.4 % 11.5 - 14.5 [facility] Platelets [#/volume] in Blood by Automated count 163 10^3/uL 150 - 45 0 [facility] Platelet mean volume [Entitic volume] in Blood by Automated count 11.0 fL 7.4 - 10.4 H [facility] Neutrophils/100 leukocytes in Blood by Automated count 81.8 % 37. 0 - 80.0 H [facility] Lymphocytes/100 leukocytes in Blood by Manual count 7.7 % 25.0 - 40.0 L [facility] Monocytes/100 leukocytes in Blood by Automated count 9.5 % 3.0 - 8.0 H [facility] Eosinophils/100 leukocytes in Blood by Automated count 0.3 % 0.0 - 7.0 [facility] Basophils/100 leukocytes in Blood by Automated count 0.4 % 0.0 - 2.5 [facility] %IG 0.3 % 0.0 - 0.0 H [facility] al %NRBC 0.0 % 0.0 - 0.0 [facility] al Neutrophils [#/volume] in Blood by Automated count 8.10 10^3/uL 2.00 - 6.90 H [facility] Lymphocytes [#/volume] in Blood by Automated count 0.76 10^3/uL 0.60 - 3.40 [facility] Monocytes [#/volume] in Blood by Automated count 0.94 10^3/uL 0.00 - 0.90 H [facility] Eosinophils [#/volume] in Blood by Automated count 0.03 10^3/uL 0.00 - 0.70 [facility] Basophils [#/volume] in Blood by Automated count 0.04 10^3/uL 0.00 - 0.20 [facility] #IG 0.03 10^3/uL 0.00 - 0.10 [facility] #NRBC 0.00 10^3/uL 0.00 - 0.00 [facility] MANUAL DIFF NOT INDICATED [facility] RBC MORPH NOT INDICATED [facility] spital ID Date Data Source [id number] 07/08/2020 06:05:00 PM EST [facility] Name Value Range Interpretation Code Description Data Su rce(s) Supporting Document(s) Lactate [Moles/volume] in Serum or Plasma 1.7 MMOL/L 0.2 - 2.2 [facility] ID Date Data Source [id number] 06/18/2020 09:45:00 AM EST [facility] Name Value Range Interpretation Code Description Data Su rce(s) Supporting Document(s) Alb 10 mg/L 1-30 [facility] ([facility] A/C Ratio Laboratory test result ME DENT ([facility] Creatinine, Urine 50 mg/dL 10-300 [facility] ([facility] ID Date Data Source [id number] 06/18/2020 09:44:00 AM EST [facility] ([facility] Name Value Range Interpretation Code Description Data Su rce(s) Supporting Document(s) Color Laboratory test result ALLEGRA ([facility] NORMAL RANGES Age WBC RBC HGB HCT [...] HCT IS 5% LESS SOURCE FOR DATA: Yattos 1800 OPERATION MANUAL( AUTOMATED BLOOD COUNTS AND [...] DESIRABLE: <130 MG/DL <110 MG/DL BORDERLINE-HIGH RISK: 130- 159 MG/DL 110-129 MG/DL HIGH RISK: >160 MG/DL >130 MG/DL *CHILDREN AND ADOLESCENTS REPRESENTS INDIVIDUALA AGED 2-19 YEARS EXCLUSIVE. Glucose-Ua Laboratory test result Abnormal (applies to non -numeric results) [facility] ([facility] NORMAL RANGES Age WBC RBC HGB HCT [...] HCT IS 5% LESS SOURCE FOR DATA: Yattos 1800 OPERATION MANUAL( AUTOMATED BLOOD COUNTS AND [...] DESIRABLE: <130 MG/DL <110 MG/DL BORDERLINE-HIGH RISK: 130- 159 MG/DL 110-129 MG/DL HIGH RISK: >160 MG/DL >130 MG/DL *CHILDREN AND ADOLESCENTS REPRESENTS INDIVIDUALA AGED 2-19 YEARS EXCLUSIVE. Bilirubin,Urine Laboratory test result [facility] ([facility] NORMAL RANGES Age WBC RBC HGB HCT [...] HCT IS 5% LESS SOURCE FOR DATA: Yattos 1800 OPERATION MANUAL( AUTOMATED BLOOD COUNTS AND [...] DESIRABLE: <130 MG/DL <110 MG/DL BORDERLINE-HIGH RISK: 130- 159 MG/DL 110-129 MG/DL HIGH RISK: >160 MG/DL >130 MG/DL *CHILDREN AND ADOLESCENTS REPRESENTS INDIVIDUALA AGED 2-19 YEARS EXCLUSIVE. Clarity Laboratory test result [facility] ([facility] NORMAL RANGES Age WBC RBC HGB HCT [...] HCT IS 5% LESS SOURCE FOR DATA: Yattos 1800 OPERATION MANUAL( AUTOMATED BLOOD COUNTS AND [...] DESIRABLE: <130 MG/DL <110 MG/DL BORDERLINE-HIGH RISK: 130- 159 MG/DL 110-129 MG/DL HIGH RISK: >160 MG/DL >130 MG/DL *CHILDREN AND ADOLESCENTS REPRESENTS INDIVIDUALA AGED 2-19 YEARS EXCLUSIVE. Ketone Laboratory [facility] NORMAL RANGES Age WBC RBC HGB HCT [...] HCT IS 5% LESS SOURCE FOR DATA: [employer] 1800 OPERATION MANUAL( AUTOMATED BLOOD COUNTS AND [...] DESIRABLE: <130 MG/DL <110 MG/DL BORDERLINE-HIGH RISK: 130- 159 MG/DL 110-129 MG/DL HIGH RISK: >160 MG/DL >130 MG/DL *CHILDREN AND ADOLESCENTS REPRESENTS INDIVIDUALA AGED 2-19 YEARS EXCLUSIVE. pH 5.5 # 5.0-8.0 [facility] ([facility] NORMAL RANGES Age WBC RBC HGB HCT [...] HCT IS 5% LESS SOURCE FOR DATA: Yattos 1800 OPERATION MANUAL( AUTOMATED BLOOD COUNTS AND [...] DESIRABLE: <130 MG/DL <110 MG/DL BORDERLINE-HIGH RISK: 130- 159 MG/DL 110-129 MG/DL HIGH RISK: >160 MG/DL >130 MG/DL *CHILDREN AND ADOLESCENTS REPRESENTS INDIVIDUALA AGED 2-19 YEARS EXCLUSIVE. Blood - Ua Laboratory test result ME SALTER ([facility] NORMAL RANGES Age WBC RBC HGB HCT [...] HCT IS 5% LESS SOURCE FOR DATA: [employer] 1800 OPERATION MANUAL( AUTOMATED BLOOD COUNTS AND [...] DESIRABLE: <130 MG/DL <110 MG/DL BORDERLINE-HIGH RISK: 130- 159 MG/DL 110-129 MG/DL HIGH RISK: >160 MG/DL >130 MG/DL *CHILDREN AND ADOLESCENTS REPRESENTS INDIVIDUALA AGED 2-19 YEARS EXCLUSIVE. Urobilinogen 0.2 NA 0.2-1.0 [facility] ([facility] NORMAL RANGES Age WBC RBC HGB HCT [...] HCT IS 5% LESS SOURCE FOR DATA: [employer] 1800 OPERATION MANUAL( AUTOMATED BLOOD COUNTS AND [...] DESIRABLE: <130 MG/DL <110 MG/DL BORDERLINE-HIGH RISK: 130- 159 MG/DL 110-129 MG/DL HIGH RISK: >160 MG/DL >130 MG/DL *CHILDREN AND ADOLESCENTS REPRESENTS INDIVIDUALA AGED 2-19 YEARS EXCLUSIVE. Protein Laboratory test result [facility] ([facility] NORMAL RANGES Age WBC RBC HGB HCT [...] HCT IS 5% LESS SOURCE FOR DATA: [employer] 1800 OPERATION MANUAL( AUTOMATED BLOOD COUNTS AND [...] DESIRABLE: <130 MG/DL <110 MG/DL BORDERLINE-HIGH RISK: 130- 159 MG/DL 110-129 MG/DL HIGH RISK: >160 MG/DL >130 MG/DL *CHILDREN AND ADOLESCENTS REPRESENTS INDIVIDUALA AGED 2-19 YEARS EXCLUSIVE. Nitrite Laboratory test result [facility] ([facility] NORMAL RANGES Age WBC RBC HGB HCT [...] HCT IS 5% LESS SOURCE FOR DATA: [employer] 1800 OPERATION MANUAL( AUTOMATED BLOOD COUNTS AND [...] DESIRABLE: <130 MG/DL <110 MG/DL BORDERLINE-HIGH RISK: 130- 159 MG/DL 110-129 MG/DL HIGH RISK: >160 MG/DL >130 MG/DL *CHILDREN AND ADOLESCENTS REPRESENTS INDIVIDUALA AGED 2-19 YEARS EXCLUSIVE. Leukocyte Laboratory test result ND JOIE ([facility] NORMAL RANGES Age WBC RBC HGB HCT [...] HCT IS 5% LESS SOURCE FOR DATA: [employer] 1800 OPERATION MANUAL( AUTOMATED BLOOD COUNTS AND [...] DESIRABLE: <130 MG/DL <110 MG/DL BORDERLINE-HIGH RISK: 130- 159 MG/DL 110-129 MG/DL HIGH RISK: >160 MG/DL >130 MG/DL *CHILDREN AND ADOLESCENTS REPRESENTS INDIVIDUALA AGED 2-19 YEARS EXCLUSIVE. ID Date Data Source [id number] 06/18/2020 09:44:00 AM EST [facility] ([facility] Name Value Range Interpretation Code Description Data Su rce(s) Supporting Document(s) Trig 142 mg/dL 40-200 [facility] ([facility] NORMAL RANGES Age WBC RBC HGB HCT [...] HCT IS 5% LESS SOURCE FOR DATA: [employer] 1800 OPERATION MANUAL( AUTOMATED BLOOD COUNTS AND [...] DESIRABLE: <130 MG/DL <110 MG/DL BORDERLINE-HIGH RISK: 130- 159 MG/DL 110-129 MG/DL HIGH RISK: >160 MG/DL >130 MG/DL *CHILDREN AND ADOLESCENTS REPRESENTS INDIVIDUALA AGED 2-19 YEARS EXCLUSIVE. Chol 146 mg/dL 0-200 [facility] NORMAL RANGES Age WBC RBC HGB HCT [...] HCT IS 5% LESS SOURCE FOR DATA: [employer] 1800 OPERATION MANUAL( AUTOMATED BLOOD COUNTS AND [...] DESIRABLE: <130 MG/DL <110 MG/DL BORDERLINE-HIGH RISK: 130- 159 MG/DL 110-129 MG/DL HIGH RISK: >160 MG/DL >130 MG/DL *CHILDREN AND ADOLESCENTS REPRESENTS INDIVIDUALA AGED 2-19 YEARS EXCLUSIVE. Cho/HDL Ratio 3.[address] [facility] ([facility] NORMAL RANGES Age WBC RBC HGB HCT [...] HCT IS 5% LESS SOURCE FOR DATA: [employer] 1800 OPERATION MANUAL( AUTOMATED BLOOD COUNTS AND [...] DESIRABLE: <130 MG/DL <110 MG/DL BORDERLINE-HIGH RISK: 130- 159 MG/DL 110-129 MG/DL HIGH RISK: >160 MG/DL >130 MG/DL *CHILDREN AND ADOLESCENTS REPRESENTS INDIVIDUALA AGED 2-19 YEARS EXCLUSIVE. LDL_C 77 Calc 75-129 [facility] ([facility] NORMAL RANGES Age WBC RBC HGB HCT [...] HCT IS 5% LESS SOURCE FOR DATA: [employer] 1800 OPERATION MANUAL( AUTOMATED BLOOD COUNTS AND [...] DESIRABLE: <130 MG/DL <110 MG/DL BORDERLINE-HIGH RISK: 130- 159 MG/DL 110-129 MG/DL HIGH RISK: >160 MG/DL >130 MG/DL *CHILDREN AND ADOLESCENTS REPRESENTS INDIVIDUALA AGED 2-19 YEARS EXCLUSIVE. Cholesterol in HDL [Mass/volume] in Serum or Plasma 41 mg/dL 45-65 Below low normal [facility] ([facility] NORMAL RANGES Age WBC RBC HGB HCT [...] HCT IS 5% LESS SOURCE FOR DATA: [employer] 1800 OPERATION MANUAL( AUTOMATED BLOOD COUNTS AND [...] DESIRABLE: <130 MG/DL <110 MG/DL BORDERLINE-HIGH RISK: 130- 159 MG/DL 110-129 MG/DL HIGH RISK: >160 MG/DL >130 MG/DL *CHILDREN AND ADOLESCENTS REPRESENTS INDIVIDUALA AGED 2-19 YEARS EXCLUSIVE. ID Date Data Source [id number] 06/18/2020 09:44:00 AM EST [facility] ([facility] Name Value Range Interpretation Code Description Data Su rce(s) Supporting Document(s) Creatine kinase [Enzymatic activity/volume] in Serum or Plasma 121 U/L 26-192 [facility] ([facility] NORMAL RANGES Age WBC RBC HGB HCT [...] HCT IS 5% LESS SOURCE FOR DATA: [employer] 1800 OPERATION MANUAL( AUTOMATED BLOOD COUNTS AND [...] ADOLESCENTS REPRESENTS INDIVIDUALA AGED 2-19 YEARS EXCLUSIVE. ID Date Data Source [id number] 06/18/2020 09:44:00 AM EST [facility] ([facility] Name Value Range Interpretation Code Description Data Su rce(s) Supporting Document(s) BUN 26 mg/dL 8-23 Above high normal [facility] ([facility] NORMAL RANGES Age WBC RBC HGB HCT [...] HCT IS 5% LESS SOURCE FOR DATA: Lamoda DYN 1800 OPERATION MANUAL( AUTOMATED BLOOD COUNTS AND [...] ADOLESCENTS REPRESENTS INDIVIDUALA AGED 2-19 YEARS EXCLUSIVE. Creat 1.2 mg/dL 0.5-1.0 Above high normal [facility] ([facility] NORMAL RANGES Age WBC RBC HGB HCT [...] HCT IS 5% LESS SOURCE FOR DATA: [employer] 1800 OPERATION MANUAL( AUTOMATED BLOOD COUNTS AND [...] ADOLESCENTS REPRESENTS INDIVIDUALA AGED 2-19 YEARS EXCLUSIVE. Glu 194 mg/dL 70-110 Above high normal [facility] ([facility] NORMAL RANGES Age WBC RBC HGB HCT [...] HCT IS 5% LESS SOURCE FOR DATA: [employer] 1800 OPERATION MANUAL( AUTOMATED BLOOD COUNTS AND [...] ADOLESCENTS REPRESENTS INDIVIDUALA AGED 2-19 YEARS EXCLUSIVE. BUN/Creatinine Ratio 22.5 CALC [employer] ([facility] NORMAL RANGES Age WBC RBC HGB HCT [...] HCT IS 5% LESS SOURCE FOR DATA: DAMARIS DYN 1800 OPERATION MANUAL( AUTOMATED BLOOD COUNTS AND [...] ADOLESCENTS REPRESENTS INDIVIDUALA AGED 2-19 YEARS EXCLUSIVE. K 4.3 mmol/L 3.5-5.1 [facility] NORMAL RANGES Age WBC RBC HGB HCT [...] HCT IS 5% LESS SOURCE FOR DATA: [employer] 1800 OPERATION MANUAL( AUTOMATED BLOOD COUNTS AND [...] ADOLESCENTS REPRESENTS INDIVIDUALA AGED 2-19 YEARS EXCLUSIVE. Na 140 mmol/L 136-145 [facility] NORMAL RANGES Age WBC RBC HGB HCT [...] HCT IS 5% LESS SOURCE FOR DATA: [employer] 1800 OPERATION MANUAL( AUTOMATED BLOOD COUNTS AND [...] ADOLESCENTS REPRESENTS INDIVIDUALA AGED 2-19 YEARS EXCLUSIVE. Co2 24.6 mmol/L 22.0-29.0 [employer] [facility] NORMAL RANGES Age WBC RBC HGB HCT [...] HCT IS 5% LESS SOURCE FOR DATA: Lamoda DYN 1800 OPERATION MANUAL( AUTOMATED BLOOD COUNTS AND [...] ADOLESCENTS REPRESENTS INDIVIDUALA AGED 2-19 YEARS EXCLUSIVE. CA 8.6 mg/dL 8.6-10.2 [facility] ([facility] NORMAL RANGES Age WBC RBC HGB HCT [...] HCT IS 5% LESS SOURCE FOR DATA: [employer]attos 1800 OPERATION MANUAL( AUTOMATED BLOOD COUNTS AND [...] ADOLESCENTS REPRESENTS INDIVIDUALA AGED 2-19 YEARS EXCLUSIVE. CL 107.5 mmol/L 98.0-107.0 Above high normal PAM T ([facility] NORMAL RANGES Age WBC RBC HGB HCT [...] HCT IS 5% LESS SOURCE FOR DATA: [employer] 1800 OPERATION MANUAL( AUTOMATED BLOOD COUNTS AND [...] ADOLESCENTS REPRESENTS INDIVIDUALA AGED 2-19 YEARS EXCLUSIVE. A/G Ratio 1.6 CALC [facility] ([facility] NORMAL RANGES Age WBC RBC HGB HCT [...] HCT IS 5% LESS SOURCE FOR DATA: [employer] 1800 OPERATION MANUAL( AUTOMATED BLOOD COUNTS AND [...] ADOLESCENTS REPRESENTS INDIVIDUALA AGED 2-19 YEARS EXCLUSIVE. Alb 3.9 g/dL 3.4-4.8 [facility] ([facility] NORMAL RANGES Age WBC RBC HGB HCT [...] HCT IS 5% LESS SOURCE FOR DATA: [employer] 1800 OPERATION MANUAL( AUTOMATED BLOOD COUNTS AND [...] ADOLESCENTS REPRESENTS INDIVIDUALA AGED 2-19 YEARS EXCLUSIVE. TP 6.2 g/dL 6.6-8.[address] [facility] ( [facility] NORMAL RANGES Age WBC RBC HGB HCT [...] HCT IS 5% LESS SOURCE FOR DATA: [employer] 1800 OPERATION MANUAL( AUTOMATED BLOOD COUNTS AND [...] ADOLESCENTS REPRESENTS INDIVIDUALA AGED 2-19 YEARS EXCLUSIVE. Alt (SGPT) 16 U/L 0-41 [facility] ([facility] NORMAL RANGES Age WBC RBC HGB HCT [...] HCT IS 5% LESS SOURCE FOR DATA: [employer] 1800 OPERATION MANUAL( AUTOMATED BLOOD COUNTS AND [...] ADOLESCENTS REPRESENTS INDIVIDUALA AGED 2-19 YEARS EXCLUSIVE. Alp 68.2 U/L 35-129 [facility] ([facility] NORMAL RANGES Age WBC RBC HGB HCT [...] HCT IS 5% LESS SOURCE FOR DATA: [employer] 1800 OPERATION MANUAL( AUTOMATED BLOOD COUNTS AND [...] ADOLESCENTS REPRESENTS INDIVIDUALA AGED 2-19 YEARS EXCLUSIVE. Globulin 2.4 CALC [facility] NORMAL RANGES Age WBC RBC HGB HCT [...] HCT IS 5% LESS SOURCE FOR DATA: [employer]os 1800 OPERATION MANUAL( AUTOMATED BLOOD COUNTS AND [...] ADOLESCENTS REPRESENTS INDIVIDUALA AGED 2-19 YEARS EXCLUSIVE. Tbili 0.39 mg/dL 0.0-1.2 [facility] NORMAL RANGES Age WBC RBC HGB HCT [...] HCT IS 5% LESS SOURCE FOR DATA: [employer] 1800 OPERATION MANUAL( AUTOMATED BLOOD COUNTS AND [...] ADOLESCENTS REPRESENTS INDIVIDUALA AGED 2-19 YEARS EXCLUSIVE. Osmolality-Calculated 290.0 CALC [facility] ([facility] NORMAL RANGES Age WBC RBC HGB HCT [...] HCT IS 5% LESS SOURCE FOR DATA: [employer] 1800 OPERATION MANUAL( AUTOMATED BLOOD COUNTS AND [...] ADOLESCENTS REPRESENTS INDIVIDUALA AGED 2-19 YEARS EXCLUSIVE. Ast (Sgot) 16 U/L 0-40 [facility] ([facility] NORMAL RANGES Age WBC RBC HGB HCT [...] HCT IS 5% LESS SOURCE FOR DATA: [employer] 1800 OPERATION MANUAL( AUTOMATED BLOOD COUNTS AND [...] ADOLESCENTS REPRESENTS INDIVIDUALA AGED 2-19 YEARS EXCLUSIVE. eGFR 51 # [facility] ( [facility] NORMAL RANGES Age WBC RBC HGB HCT [...] HCT IS 5% LESS SOURCE FOR DATA: [employer] 1800 OPERATION MANUAL( AUTOMATED BLOOD COUNTS AND [...] ADOLESCENTS REPRESENTS INDIVIDUALA AGED 2-19 YEARS EXCLUSIVE. Anion Gap 12 mmol/L [facility] ([facility] [facility] NORMAL RANGES Age WBC RBC HGB HCT [...] HCT IS 5% LESS SOURCE FOR DATA: Yattos 1800 OPERATION MANUAL( AUTOMATED BLOOD COUNTS AND [...] ADOLESCENTS REPRESENTS INDIVIDUALA AGED 2-19 YEARS EXCLUSIVE. eGFR Non-Afr. Gibraltarian 44 # [facility] ([facility] NORMAL RANGES Age WBC RBC HGB HCT [...] HCT IS 5% LESS SOURCE FOR DATA: Yattos 1800 OPERATION MANUAL( AUTOMATED BLOOD COUNTS AND [...] ADOLESCENTS REPRESENTS INDIVIDUALA AGED 2-19 YEARS EXCLUSIVE. ID Date Data Source [id number] 06/18/2020 09:44:00 AM DES DINH ([facility] Name Value Range Interpretation Code Description Data Su rce(s) Supporting Document(s) WBC 7.6 10E3/uL 4.1-10.9 [facility] NORMAL RANGES Age WBC RBC HGB HCT [...] HCT IS 5% LESS SOURCE FOR DATA: Yattos 1800 OPERATION MANUAL( AUTOMATED BLOOD COUNTS AND [...] ADOLESCENTS REPRESENTS INDIVIDUALA AGED 2-19 YEARS EXCLUSIVE. HGB 14.0 g/dL 12.0-18.0 [facility] NORMAL RANGES Age WBC RBC HGB HCT [...] HCT IS 5% LESS SOURCE FOR DATA: Yattos 1800 OPERATION MANUAL( AUTOMATED BLOOD COUNTS AND [...] ADOLESCENTS REPRESENTS INDIVIDUALA AGED 2-19 YEARS EXCLUSIVE. HCT 42.7 % 37.0-51.0 [facility] ([facility] NORMAL RANGES Age WBC RBC HGB HCT [...] HCT IS 5% LESS SOURCE FOR DATA: Lamoda DYN 1800 OPERATION MANUAL( AUTOMATED BLOOD COUNTS AND [...] ADOLESCENTS REPRESENTS INDIVIDUALA AGED 2-19 YEARS EXCLUSIVE. RBC 4.60 10E6/uL 4.20-6.30 [facility] ([facility] NORMAL RANGES Age WBC RBC HGB HCT [...] HCT IS 5% LESS SOURCE FOR DATA: Yattos 1800 OPERATION MANUAL( AUTOMATED BLOOD COUNTS AND [...] ADOLESCENTS REPRESENTS INDIVIDUALA AGED 2-19 YEARS EXCLUSIVE. MCH 30.4 pg 26.0-32.0 [facility] ([facility] NORMAL RANGES Age WBC RBC HGB HCT [...] HCT IS 5% LESS SOURCE FOR DATA: Yattos 1800 OPERATION MANUAL( AUTOMATED BLOOD COUNTS AND [...] ADOLESCENTS REPRESENTS INDIVIDUALA AGED 2-19 YEARS EXCLUSIVE. MCHC 32.8 g/dL 31.0-36.0 [facility] ([facility] NORMAL RANGES Age WBC RBC HGB HCT [...] HCT IS 5% LESS SOURCE FOR DATA: Yattos 1800 OPERATION MANUAL( AUTOMATED BLOOD COUNTS AND [...] ADOLESCENTS REPRESENTS INDIVIDUALA AGED 2-19 YEARS EXCLUSIVE. MCV 92.8 fL 80.0-97.0 [facility] ([facility] NORMAL RANGES Age WBC RBC HGB HCT [...] HCT IS 5% LESS SOURCE FOR DATA: Yattos 1800 OPERATION MANUAL( AUTOMATED BLOOD COUNTS AND [...] ADOLESCENTS REPRESENTS INDIVIDUALA AGED 2-19 YEARS EXCLUSIVE. Lym% 22.8 % 10.0-58.5 [facility] NORMAL RANGES Age WBC RBC HGB HCT [...] HCT IS 5% LESS SOURCE FOR DATA: Yattos 1800 OPERATION MANUAL( AUTOMATED BLOOD COUNTS AND [...] ADOLESCENTS REPRESENTS INDIVIDUALA AGED 2-19 YEARS EXCLUSIVE. RDW-CV 13.4 % 11.5-14.5 [facility] ([facility] NORMAL RANGES Age WBC RBC HGB HCT [...] HCT IS 5% LESS SOURCE FOR DATA: Yattos 1800 OPERATION MANUAL( AUTOMATED BLOOD COUNTS AND [...] ADOLESCENTS REPRESENTS INDIVIDUALA AGED 2-19 YEARS EXCLUSIVE. PLT 198 10E3/uL 140-440 [facility] ([facility] NORMAL RANGES Age WBC RBC HGB HCT [...] HCT IS 5% LESS SOURCE FOR DATA: Yattos 1800 OPERATION MANUAL( AUTOMATED BLOOD COUNTS AND [...] ADOLESCENTS REPRESENTS INDIVIDUALA AGED 2-19 YEARS EXCLUSIVE. Lym# 1.7 10E3/uL 0.6-4.1 [facility] ([facility] NORMAL RANGES Age WBC RBC HGB HCT [...] HCT IS 5% LESS SOURCE FOR DATA: Yattos 1800 OPERATION MANUAL( AUTOMATED BLOOD COUNTS AND [...] ADOLESCENTS REPRESENTS INDIVIDUALA AGED 2-19 YEARS EXCLUSIVE. MXD% 10.3 % 0.1-24.0 [facility] NORMAL RANGES Age WBC RBC HGB HCT [...] HCT IS 5% LESS SOURCE FOR DATA: Yattos 1800 OPERATION MANUAL( AUTOMATED BLOOD COUNTS AND [...] ADOLESCENTS REPRESENTS INDIVIDUALA AGED 2-19 YEARS EXCLUSIVE. Neut% 66.9 % 37.0-92.0 [facility] ([facility] NORMAL RANGES Age WBC RBC HGB HCT [...] HCT IS 5% LESS SOURCE FOR DATA: Yattos 1800 OPERATION MANUAL( AUTOMATED BLOOD COUNTS AND [...] ADOLESCENTS REPRESENTS INDIVIDUALA AGED 2-19 YEARS EXCLUSIVE. MXD# 0.8 10E3/uL 0.0-1.8 [facility] ([facility] NORMAL RANGES Age WBC RBC HGB HCT [...] HCT IS 5% LESS SOURCE FOR DATA: Lamoda DYN 1800 OPERATION MANUAL( AUTOMATED BLOOD COUNTS AND [...] ADOLESCENTS REPRESENTS INDIVIDUALA AGED 2-19 YEARS EXCLUSIVE. Neut# 5.1 % 2.0-7.8 [facility] ([facility] NORMAL RANGES Age WBC RBC HGB HCT [...] HCT IS 5% LESS SOURCE FOR DATA: Yattos 1800 OPERATION MANUAL( AUTOMATED BLOOD COUNTS AND [...] ADOLESCENTS REPRESENTS INDIVIDUALA AGED 2-19 YEARS EXCLUSIVE. MPV 11.2 fL 9.0-13.0 [facility] NORMAL RANGES Age WBC RBC HGB HCT [...] HCT IS 5% LESS SOURCE FOR DATA: Yattos 1800 OPERATION MANUAL( AUTOMATED BLOOD COUNTS AND [...] ADOLESCENTS REPRESENTS INDIVIDUALA AGED 2-19 YEARS EXCLUSIVE. ID Date Data Source [id number] 06/18/2020 09:44:00 AM EST [facility] ([facility] Name Value Range Interpretation Code Description Data Su rce(s) Supporting Document(s) Hemoglobin A1c/Hemoglobin.total in Blood 8.8 % 4.4-6.1 Above high normal [facility] ([facility] {A1] {HB] ID Date Data Source [id number] 06/18/2020 02:23:00 PM [facility] Name Value Range Interpretation Code Description Data Su rce(s) Supporting Document(s) Hemoglobin A1c/Hemoglobin.total in Blood 8.8 % 4.4 - 6.1 [facility] {A1]{HB] ID Date Data Source [id number] 03/11/2020 08:50:00 AM EDT [facility] ([facility] Name Value Range Interpretation Code Description Data Su rce(s) Supporting Document(s) Hemoglobin A1c/Hemoglobin.total in Blood 8.7 % 4.4-6.1 Above high normal [facility] ([facility] {A1] {HB] ID Date Data Source [id number] 03/11/2020 08:50:00 AM EDT [facility] ([facility] Name Value Range Interpretation Code Description Data Su rce(s) Supporting Document(s) Color Laboratory test result [facility] ([facility] NORMAL RANGES Age WBC RBC HGB HCT [...] HCT IS 5% LESS SOURCE FOR DATA: Yattos 1800 OPERATION MANUAL( AUTOMATED BLOOD COUNTS AND [...] ADOLESCENTS REPRESENTS INDIVIDUALA AGED 2-19 YEARS EXCLUSIVE. Clarity Laboratory test result [facility] ([facility] NORMAL RANGES Age WBC RBC HGB HCT [...] HCT IS 5% LESS SOURCE FOR DATA: Lamoda DYN 1800 OPERATION MANUAL( AUTOMATED BLOOD COUNTS AND [...] ADOLESCENTS REPRESENTS INDIVIDUALA AGED 2-19 YEARS EXCLUSIVE. Glucose-Ua Laboratory test result [facility] ([facility] NORMAL RANGES Age WBC RBC HGB HCT [...] HCT IS 5% LESS SOURCE FOR DATA: Yattos 1800 OPERATION MANUAL( AUTOMATED BLOOD COUNTS AND [...] ADOLESCENTS REPRESENTS INDIVIDUALA AGED 2-19 YEARS EXCLUSIVE. Bilirubin,Urine Laboratory test result [facility] ([facility] NORMAL RANGES Age WBC RBC HGB HCT [...] HCT IS 5% LESS SOURCE FOR DATA: Yattos 1800 OPERATION MANUAL( AUTOMATED BLOOD COUNTS AND [...] ADOLESCENTS REPRESENTS INDIVIDUALA AGED 2-19 YEARS EXCLUSIVE. Ketone Laboratory test result [facility] ([facility] NORMAL RANGES Age WBC RBC HGB HCT [...] HCT IS 5% LESS SOURCE FOR DATA: Lamoda DYN 1800 OPERATION MANUAL( AUTOMATED BLOOD COUNTS AND [...] ADOLESCENTS REPRESENTS INDIVIDUALA AGED 2-19 YEARS EXCLUSIVE. Blood - Ua Laboratory test result Abnormal (applies to non -numeric results) [facility] ([facility] NORMAL RANGES Age WBC RBC HGB HCT [...] HCT IS 5% LESS SOURCE FOR DATA: Yattos 1800 OPERATION MANUAL( AUTOMATED BLOOD COUNTS AND [...] ADOLESCENTS REPRESENTS INDIVIDUALA AGED 2-19 YEARS EXCLUSIVE. pH 5.5 # 5.0-8.0 [facility] ([facility] NORMAL RANGES Age WBC RBC HGB HCT [...] HCT IS 5% LESS SOURCE FOR DATA: Yattos 1800 OPERATION MANUAL( AUTOMATED BLOOD COUNTS AND [...] ADOLESCENTS REPRESENTS INDIVIDUALA AGED 2-19 YEARS EXCLUSIVE. Protein Laboratory test result [facility] ([facility] NORMAL RANGES Age WBC RBC HGB HCT [...] HCT IS 5% LESS SOURCE FOR DATA: Lamoda DYN 1800 OPERATION MANUAL( AUTOMATED BLOOD COUNTS AND [...] ADOLESCENTS REPRESENTS INDIVIDUALA AGED 2-19 YEARS EXCLUSIVE. Nitrite Laboratory test result [facility] ([facility] NORMAL RANGES Age WBC RBC HGB HCT [...] HCT IS 5% LESS SOURCE FOR DATA: Yattos 1800 OPERATION MANUAL( AUTOMATED BLOOD COUNTS AND [...] ADOLESCENTS REPRESENTS INDIVIDUALA AGED 2-19 YEARS EXCLUSIVE. Urobilinogen 0.2 NA 0.2-1.0 [facility] ([facility] NORMAL RANGES Age WBC RBC HGB HCT [...] HCT IS 5% LESS SOURCE FOR DATA: Yattos 1800 OPERATION MANUAL( AUTOMATED BLOOD COUNTS AND [...] ADOLESCENTS REPRESENTS INDIVIDUALA AGED 2-19 YEARS EXCLUSIVE. RBC-Ua Laboratory test result 0-3 Abnormal (applies to non -numeric results) [facility] ([facility] NORMAL RANGES Age WBC RBC HGB HCT [...] HCT IS 5% LESS SOURCE FOR DATA: Yattos 1800 OPERATION MANUAL( AUTOMATED BLOOD COUNTS AND [...] ADOLESCENTS REPRESENTS INDIVIDUALA AGED 2-19 YEARS EXCLUSIVE. Leukocyte Laboratory test result Abnormal (applies to non -numeric results) [facility] ([facility] NORMAL RANGES Age WBC RBC HGB HCT [...] HCT IS 5% LESS SOURCE FOR DATA: Yattos 1800 OPERATION MANUAL( AUTOMATED BLOOD COUNTS AND [...] ADOLESCENTS REPRESENTS INDIVIDUALA AGED 2-19 YEARS EXCLUSIVE. Bacteria - Ua Laboratory test result Abnormal (applies to non-numeric results) [facility] ([facility] ) NORMAL RANGES Age WBC RBC HGB HCT [...] HCT IS 5% LESS SOURCE FOR DATA: Yattos 1800 OPERATION MANUAL( AUTOMATED BLOOD COUNTS AND [...] ADOLESCENTS REPRESENTS INDIVIDUALA AGED 2-19 YEARS EXCLUSIVE. Epithelial Cells - Ua Laboratory test result [facility] ([facility] NORMAL RANGES Age WBC RBC HGB HCT [...] HCT IS 5% LESS SOURCE FOR DATA: Lamoda DYN 1800 OPERATION MANUAL( AUTOMATED BLOOD COUNTS AND [...] ADOLESCENTS REPRESENTS INDIVIDUALA AGED 2-19 YEARS EXCLUSIVE. Comment Laboratory test result [facility] ([facility] NORMAL RANGES Age WBC RBC HGB HCT [...] HCT IS 5% LESS SOURCE FOR DATA: Yattos 1800 OPERATION MANUAL( AUTOMATED BLOOD COUNTS AND [...] ADOLESCENTS REPRESENTS INDIVIDUALA AGED 2-19 YEARS EXCLUSIVE. WBC-Ua Laboratory test result 0-5 Abnormal (applies to non -numeric results) [facility] ([facility] NORMAL RANGES Age WBC RBC HGB HCT [...] HCT IS 5% LESS SOURCE FOR DATA: Yattos 1800 OPERATION MANUAL( AUTOMATED BLOOD COUNTS AND [...] ADOLESCENTS REPRESENTS INDIVIDUALA AGED 2-19 YEARS EXCLUSIVE. Renal Epithelial Cells Laboratory test result Ab normal (applies to non-numeric results) [facility] ([facility] NORMAL RANGES Age WBC RBC HGB HCT [...] HCT IS 5% LESS SOURCE FOR DATA: Yattos 1800 OPERATION MANUAL( AUTOMATED BLOOD COUNTS AND [...] ADOLESCENTS REPRESENTS INDIVIDUALA AGED 2-19 YEARS EXCLUSIVE. ID Date Data Source [id number] 03/11/2020 08:50:00 AM EDT [facility] ([facility] Name Value Range Interpretation Code Description Data Su rce(s) Supporting Document(s) Chol 165 mg/dL 0-200 [facility] ([facility] NORMAL RANGES Age WBC RBC HGB HCT [...] HCT IS 5% LESS SOURCE FOR DATA: Yattos 1800 OPERATION MANUAL( AUTOMATED BLOOD COUNTS AND [...] ADOLESCENTS REPRESENTS INDIVIDUALA AGED 2-19 YEARS EXCLUSIVE. Trig 115 mg/dL 40-200 [facility] ([facility] NORMAL RANGES Age WBC RBC HGB HCT [...] HCT IS 5% LESS SOURCE FOR DATA: DAMARIS DYN 1800 OPERATION MANUAL( AUTOMATED BLOOD COUNTS AND [...] ADOLESCENTS REPRESENTS INDIVIDUALA AGED 2-19 YEARS EXCLUSIVE. Cholesterol in HDL [Mass/volume] in Serum or Plasma 48 mg/dL 45-65 [facility] ([facility] NORMAL RANGES Age WBC RBC HGB HCT [...] HCT IS 5% LESS SOURCE FOR DATA: Yattos 1800 OPERATION MANUAL( AUTOMATED BLOOD COUNTS AND [...] DESIRABLE: <130 MG/DL <110 MG/DL BORDERLINE-HIGH RISK: 130- 159 MG/DL 110-129 MG/DL HIGH RISK: >160 MG/DL >130 MG/DL *CHILDREN AND ADOLESCENTS REPRESENTS INDIVIDUALA AGED 2-19 YEARS EXCLUSIVE. Cho/HDL Ratio 3.5 CALC [facility] ([facility] NORMAL RANGES Age WBC RBC HGB HCT [...] HCT IS 5% LESS SOURCE FOR DATA: Yattos 1800 OPERATION MANUAL( AUTOMATED BLOOD COUNTS AND [...] DESIRABLE: <130 MG/DL <110 MG/DL BORDERLINE-HIGH RISK: 130- 159 MG/DL 110-129 MG/DL HIGH RISK: >160 MG/DL >130 MG/DL *CHILDREN AND ADOLESCENTS REPRESENTS INDIVIDUALA AGED 2-19 YEARS EXCLUSIVE. LDL_C 94 Calc 75-129 [facility] ([facility] NORMAL RANGES Age WBC RBC HGB HCT [...] HCT IS 5% LESS SOURCE FOR DATA: DAMARIS DYN 1800 OPERATION MANUAL( AUTOMATED BLOOD COUNTS AND [...] DESIRABLE: <130 MG/DL <110 MG/DL BORDERLINE-HIGH RISK: 130- 159 MG/DL 110-129 MG/DL HIGH RISK: >160 MG/DL >130 MG/DL *CHILDREN AND ADOLESCENTS REPRESENTS INDIVIDUALA AGED 2-19 YEARS EXCLUSIVE. ID Date Data Source [id number] 03/11/2020 08:50:[address] [facility] ([facility] Name Value Range Interpretation Code Description Data Su rce(s) Supporting Document(s) Creatine kinase [Enzymatic activity/volume] in Serum or Plasma 147 U/L 26-192 [facility] ([facility] NORMAL RANGES Age WBC RBC HGB HCT [...] HCT IS 5% LESS SOURCE FOR DATA: Yattos 1800 OPERATION MANUAL( AUTOMATED BLOOD COUNTS AND [...] ADOLESCENTS REPRESENTS INDIVIDUALA AGED 2-19 YEARS EXCLUSIVE. ID Date Data Source [id number] 03/11/2020 08:50:00 AM EDT [facility] ([facility] Name Value Range Interpretation Code Description Data Su rce(s) Supporting Document(s) Glu 188 mg/dL 70-110 Above high normal [facility] ([facility] NORMAL RANGES Age WBC RBC HGB HCT [...] HCT IS 5% LESS SOURCE FOR DATA: Yattos 1800 OPERATION MANUAL( AUTOMATED BLOOD COUNTS AND [...] ADOLESCENTS REPRESENTS INDIVIDUALA AGED 2-19 YEARS EXCLUSIVE. BUN 18 mg/dL 8-23 [facility] ([facility] NORMAL RANGES Age WBC RBC HGB HCT [...] HCT IS 5% LESS SOURCE FOR DATA: Yattos 1800 OPERATION MANUAL( AUTOMATED BLOOD COUNTS AND [...] ADOLESCENTS REPRESENTS INDIVIDUALA AGED 2-19 YEARS EXCLUSIVE. BUN/Creatinine Ratio 20.5 CALC [facility] ([facility] NORMAL RANGES Age WBC RBC HGB HCT [...] HCT IS 5% LESS SOURCE FOR DATA: Yattos 1800 OPERATION MANUAL( AUTOMATED BLOOD COUNTS AND [...] ADOLESCENTS REPRESENTS INDIVIDUALA AGED 2-19 YEARS EXCLUSIVE. Creat 0.9 mg/dL 0.5-1.0 [facility] ([facility] NORMAL RANGES Age WBC RBC HGB HCT [...] HCT IS 5% LESS SOURCE FOR DATA: DAMARIS DYN 1800 OPERATION MANUAL( AUTOMATED BLOOD COUNTS AND [...] ADOLESCENTS REPRESENTS INDIVIDUALA AGED 2-19 YEARS EXCLUSIVE. Na 139 mmol/L 136-145 [facility] ([facility] NORMAL RANGES Age WBC RBC HGB HCT [...] HCT IS 5% LESS SOURCE FOR DATA: Yattos 1800 OPERATION MANUAL( AUTOMATED BLOOD COUNTS AND [...] ADOLESCENTS REPRESENTS INDIVIDUALA AGED 2-19 YEARS EXCLUSIVE. K 4.8 mmol/L 3.5-5.1 [facility] ([facility] NORMAL RANGES Age WBC RBC HGB HCT [...] HCT IS 5% LESS SOURCE FOR DATA: Yattos 1800 OPERATION MANUAL( AUTOMATED BLOOD COUNTS AND [...] ADOLESCENTS REPRESENTS INDIVIDUALA AGED 2-19 YEARS EXCLUSIVE. Co2 27.5 mmol/L 22.0-29.0 [employer] ([facility] NORMAL RANGES Age WBC RBC HGB HCT [...] HCT IS 5% LESS SOURCE FOR DATA: Yattos 1800 OPERATION MANUAL( AUTOMATED BLOOD COUNTS AND [...] ADOLESCENTS REPRESENTS INDIVIDUALA AGED 2-19 YEARS EXCLUSIVE. CL 103.6 mmol/L 98.0-107.0 [facility] NORMAL RANGES Age WBC RBC HGB HCT [...] HCT IS 5% LESS SOURCE FOR DATA: Yattos 1800 OPERATION MANUAL( AUTOMATED BLOOD COUNTS AND [...] ADOLESCENTS REPRESENTS INDIVIDUALA AGED 2-19 YEARS EXCLUSIVE. CA 9.3 mg/dL 8.6-10.2 [facility] ([facility] NORMAL RANGES Age WBC RBC HGB HCT [...] HCT IS 5% LESS SOURCE FOR DATA: Yattos 1800 OPERATION MANUAL( AUTOMATED BLOOD COUNTS AND [...] ADOLESCENTS REPRESENTS INDIVIDUALA AGED 2-19 YEARS EXCLUSIVE. TP 6.5 g/dL 6.6-8.7 Below low normal [facility] ( [facility] NORMAL RANGES Age WBC RBC HGB HCT [...] HCT IS 5% LESS SOURCE FOR DATA: Yattos 1800 OPERATION MANUAL( AUTOMATED BLOOD COUNTS AND [...] ADOLESCENTS REPRESENTS INDIVIDUALA AGED 2-19 YEARS EXCLUSIVE. A/G Ratio 1.6 CALC [facility] ([facility] NORMAL RANGES Age WBC RBC HGB HCT [...] HCT IS 5% LESS SOURCE FOR DATA: Yattos 1800 OPERATION MANUAL( AUTOMATED BLOOD COUNTS AND [...] ADOLESCENTS REPRESENTS INDIVIDUALA AGED 2-19 YEARS EXCLUSIVE. Alb 4.0 g/dL 3.4-4.8 [facility] NORMAL RANGES Age WBC RBC HGB HCT [...] HCT IS 5% LESS SOURCE FOR DATA: Yattos 1800 OPERATION MANUAL( AUTOMATED BLOOD COUNTS AND [...] ADOLESCENTS REPRESENTS INDIVIDUALA AGED 2-19 YEARS EXCLUSIVE. Alp 72.6 U/L 35-129 [facility] ([facility] NORMAL RANGES Age WBC RBC HGB HCT [...] HCT IS 5% LESS SOURCE FOR DATA: Lamoda DYN 1800 OPERATION MANUAL( AUTOMATED BLOOD COUNTS AND [...] ADOLESCENTS REPRESENTS INDIVIDUALA AGED 2-19 YEARS EXCLUSIVE. Globulin 2.5 CALC [facility] ([facility] NORMAL RANGES Age WBC RBC HGB HCT [...] HCT IS 5% LESS SOURCE FOR DATA: Yattos 1800 OPERATION MANUAL( AUTOMATED BLOOD COUNTS AND [...] ADOLESCENTS REPRESENTS INDIVIDUALA AGED 2-19 YEARS EXCLUSIVE. Alt (SGPT) 18 U/L 0-41 [facility] ([facility] NORMAL RANGES Age WBC RBC HGB HCT [...] HCT IS 5% LESS SOURCE FOR DATA: Yattos 1800 OPERATION MANUAL( AUTOMATED BLOOD COUNTS AND [...] ADOLESCENTS REPRESENTS INDIVIDUALA AGED 2-19 YEARS EXCLUSIVE. Ast (Sgot) 19 U/L 0-40 [facility] NORMAL RANGES Age WBC RBC HGB HCT [...] HCT IS 5% LESS SOURCE FOR DATA: Yattos 1800 OPERATION MANUAL( AUTOMATED BLOOD COUNTS AND [...] ADOLESCENTS REPRESENTS INDIVIDUALA AGED 2-19 YEARS EXCLUSIVE. Tbili 0.56 mg/dL 0.0-1.2 [facility] ([facility] NORMAL RANGES Age WBC RBC HGB HCT [...] HCT IS 5% LESS SOURCE FOR DATA: Yattos 1800 OPERATION MANUAL( AUTOMATED BLOOD COUNTS AND [...] ADOLESCENTS REPRESENTS INDIVIDUALA AGED 2-19 YEARS EXCLUSIVE. Anion Gap 13 mmol/L [facility] ([facility] NORMAL RANGES Age WBC RBC HGB HCT [...] HCT IS 5% LESS SOURCE FOR DATA: Yattos 1800 OPERATION MANUAL( AUTOMATED BLOOD COUNTS AND [...] ADOLESCENTS REPRESENTS INDIVIDUALA AGED 2-19 YEARS EXCLUSIVE. Osmolality-Calculated 284.8 CALC [facility] ([facility] NORMAL RANGES Age WBC RBC HGB HCT [...] HCT IS 5% LESS SOURCE FOR DATA: Yattos 1800 OPERATION MANUAL( AUTOMATED BLOOD COUNTS AND [...] ADOLESCENTS REPRESENTS INDIVIDUALA AGED 2-19 YEARS EXCLUSIVE. eGFR Non-Afr. Gibraltarian 63 # [facility] ([facility] CKD-EPI eGFR 72 # [facility] ( [facility] CKD-EPI ID Date Data Source [id number] 03/11/2020 08:50:00 AM EDT [facility] ([facility] Name Value Range Interpretation Code Description Data Su rce(s) Supporting Document(s) WBC 7.0 10E3/uL 4.1-10.9 [facility] ([facility] NORMAL RANGES Age WBC RBC HGB HCT [...] HCT IS 5% LESS SOURCE FOR DATA: Yattos 1800 OPERATION MANUAL( AUTOMATED BLOOD COUNTS AND [...] ADOLESCENTS REPRESENTS INDIVIDUALA AGED 2-19 YEARS EXCLUSIVE. RBC 4.55 10E6/uL 4.-6 [employer] ([facility] NORMAL RANGES Age WBC RBC HGB HCT [...] HCT IS 5% LESS SOURCE FOR DATA: Yattos 1800 OPERATION MANUAL( AUTOMATED BLOOD COUNTS AND [...] ADOLESCENTS REPRESENTS INDIVIDUALA AGED 2-19 YEARS EXCLUSIVE. HGB 13.9 g/dL 12.0-18.0 [facility] ([facility] NORMAL RANGES Age WBC RBC HGB HCT [...] HCT IS 5% LESS SOURCE FOR DATA: Yattos 1800 OPERATION MANUAL( AUTOMATED BLOOD COUNTS AND [...] ADOLESCENTS REPRESENTS INDIVIDUALA AGED 2-19 YEARS EXCLUSIVE. MCV 91.2 fL 80.0-97.0 [facility] ([facility] NORMAL RANGES Age WBC RBC HGB HCT [...] HCT IS 5% LESS SOURCE FOR DATA: Yattos 1800 OPERATION MANUAL( AUTOMATED BLOOD COUNTS AND [...] ADOLESCENTS REPRESENTS INDIVIDUALA AGED 2-19 YEARS EXCLUSIVE. HCT 41.5 % 37.0-51.0 [facility] NORMAL RANGES Age WBC RBC HGB HCT [...] HCT IS 5% LESS SOURCE FOR DATA: Yattos 1800 OPERATION MANUAL( AUTOMATED BLOOD COUNTS AND [...] ADOLESCENTS REPRESENTS INDIVIDUALA AGED 2-19 YEARS EXCLUSIVE. PLT 203 10E3/uL 140-440 [facility] ([facility] NORMAL RANGES Age WBC RBC HGB HCT [...] HCT IS 5% LESS SOURCE FOR DATA: Lamoda DYN 1800 OPERATION MANUAL( AUTOMATED BLOOD COUNTS AND [...] ADOLESCENTS REPRESENTS INDIVIDUALA AGED 2-19 YEARS EXCLUSIVE. MCH 30.5 pg 26.0-32.0 [facility] ([facility] NORMAL RANGES Age WBC RBC HGB HCT [...] HCT IS 5% LESS SOURCE FOR DATA: Yattos 1800 OPERATION MANUAL( AUTOMATED BLOOD COUNTS AND [...] ADOLESCENTS REPRESENTS INDIVIDUALA AGED 2-19 YEARS EXCLUSIVE. MCHC 33.5 g/dL 31.0-36.0 [facility] NORMAL RANGES Age WBC RBC HGB HCT [...] HCT IS 5% LESS SOURCE FOR DATA: Yattos 1800 OPERATION MANUAL( AUTOMATED BLOOD COUNTS AND [...] ADOLESCENTS REPRESENTS INDIVIDUALA AGED 2-19 YEARS EXCLUSIVE. Lym% 27.9 % 10.0-58.5 [facility] ([facility] NORMAL RANGES Age WBC RBC HGB HCT [...] HCT IS 5% LESS SOURCE FOR DATA: Yattos 1800 OPERATION MANUAL( AUTOMATED BLOOD COUNTS AND [...] ADOLESCENTS REPRESENTS INDIVIDUALA AGED 2-19 YEARS EXCLUSIVE. RDW-CV 13.6 % 11.5-14.5 [facility] NORMAL RANGES Age WBC RBC HGB HCT [...] HCT IS 5% LESS SOURCE FOR DATA: Yattos 1800 OPERATION MANUAL( AUTOMATED BLOOD COUNTS AND [...] ADOLESCENTS REPRESENTS INDIVIDUALA AGED 2-19 YEARS EXCLUSIVE. Neut% 61.3 % 37.0-92.0 [facility] NORMAL RANGES Age WBC RBC HGB HCT [...] HCT IS 5% LESS SOURCE FOR DATA: Yattos 1800 OPERATION MANUAL( AUTOMATED BLOOD COUNTS AND [...] ADOLESCENTS REPRESENTS INDIVIDUALA AGED 2-19 YEARS EXCLUSIVE. MXD% 10.8 % 0.1-24.0 [facility] ([facility] NORMAL RANGES Age WBC RBC HGB HCT [...] HCT IS 5% LESS SOURCE FOR DATA: Yattos 1800 OPERATION MANUAL( AUTOMATED BLOOD COUNTS AND [...] ADOLESCENTS REPRESENTS INDIVIDUALA AGED 2-19 YEARS EXCLUSIVE. Lym# 2.0 10E3/uL 0.6-4.1 [facility] ([facility] NORMAL RANGES Age WBC RBC HGB HCT [...] HCT IS 5% LESS SOURCE FOR DATA: DAMARIS DYN 1800 OPERATION MANUAL( AUTOMATED BLOOD COUNTS AND [...] ADOLESCENTS REPRESENTS INDIVIDUALA AGED 2-19 YEARS EXCLUSIVE. Neut# 4.2 % 2.0-7.8 [facility] ([facility] NORMAL RANGES Age WBC RBC HGB HCT [...] HCT IS 5% LESS SOURCE FOR DATA: [employer]att[employer] 1800 OPERATION MANUAL( AUTOMATED BLOOD COUNTS AND [...] ADOLESCENTS REPRESENTS INDIVIDUALA AGED 2-19 YEARS EXCLUSIVE. MPV 10.8 fL 9.0-13.0 [facility] ([facility] NORMAL RANGES Age WBC RBC HGB HCT [...] HCT IS 5% LESS SOURCE FOR DATA: [employer]att[employer] 1800 OPERATION MANUAL( AUTOMATED BLOOD COUNTS AND [...] ADOLESCENTS REPRESENTS INDIVIDUALA AGED 2-19 YEARS EXCLUSIVE. MXD# 0.8 10E3/uL 0.0-1.8 [employer] ([facility] NORMAL RANGES Age WBC RBC HGB HCT [...] HCT IS 5% LESS SOURCE FOR DATA: DAMARIS DYN 1800 OPERATION MANUAL( AUTOMATED BLOOD COUNTS AND [...] ADOLESCENTS REPRESENTS INDIVIDUALA AGED 2-19 YEARS EXCLUSIVE. ID Date Data Source [id number] 03/11/2020 01:45:00 PM EDT [facility] Name Value Range Interpretation Code Description Data Su [facility](s) Supporting Document(s) Hemoglobin A1c/Hemoglobin.total in Blood 8.7 % 4.4 - 6.1 H [facility] {A1]{HB] ID Date Data Source [id number] 12/17/2019 11:09:00 AM EDT [facility] ([facility] Name Value Range Interpretation Code Description Data Su [facility](s) Supporting Document(s) Chol 157 mg/dL 0-200 [facility] ([facility] NORMAL RANGES Age WBC RBC HGB HCT [...] HCT IS 5% LESS SOURCE FOR DATA: [employer]attos 1800 OPERATION MANUAL( AUTOMATED BLOOD COUNTS AND [...] Normal 80 and above >32 mL/min Normal LDL_C 81 Calc 75-129 [facility] ([facility] NORMAL RANGES Age WBC RBC HGB HCT [...] HCT IS 5% LESS SOURCE FOR DATA: [employer] 1800 OPERATION MANUAL( AUTOMATED BLOOD COUNTS AND [...] Normal 80 and above >32 mL/min Normal Trig 151 mg/dL 40-200 [facility] NORMAL RANGES Age WBC RBC HGB HCT [...] HCT IS 5% LESS SOURCE FOR DATA: Yattos 1800 OPERATION MANUAL( AUTOMATED BLOOD COUNTS AND [...] Normal 80 and above >32 mL/min Normal Cholesterol in HDL [Mass/volume] in Serum or Plasma 46 mg/dL 45-65 [facility] ([facility] NORMAL RANGES Age WBC RBC HGB HCT [...] HCT IS 5% LESS SOURCE FOR DATA: [email or web address] [email or web address] 1800 OPERATION MANUAL( AUTOMATED BLOOD COUNTS AND [...] Normal 80 and above >32 mL/min Normal Cho/HDL Ratio 3.[address] [facility] ([facility] NORMAL RANGES Age WBC RBC HGB HCT MCV PLT Adult M 4.1-10.9 4.20-6.30 12.0-18.0 37.0-51.0 80-97 140-440 Adult F 4.1-10.9 4.04-5.48 12.0-18.0 37.0-51.0 - 140-440 0 -1 Yr 5.0-20.0 3.9-5.9 15-18 [...] HCT IS 5% LESS SOURCE FOR DATA: [employer]att[employer] 1800 OPERATION MANUAL( AUTOMATED BLOOD COUNTS AND [...] Normal 80 and above >32 mL/min Normal ID Date Data Source [id number] 12/17/2019 11:09:[address] [facility] ([facility] Name Value Range Interpretation Code Description Data Su rce(s) Supporting Document(s) Creatine kinase [Enzymatic activity/volume] in Serum or Plasma 125 U/L 26-192 [facility] ([facility] NORMAL RANGES Age WBC RBC HGB HCT [...] HCT IS 5% LESS SOURCE FOR DATA: [employer] 1800 OPERATION MANUAL( AUTOMATED BLOOD COUNTS AND [...] Normal 80 and above >32 mL/min Normal ID Date Data Source [id number] 12/17/2019 11:09:00 AM [facility] ([facility] Name Value Range Interpretation Code Description Data Su rce(s) Supporting Document(s) Creat 1.0 mg/dL 0.5-1.0 [facility] ([facility] NORMAL RANGES Age WBC RBC HGB HCT [...] HCT IS 5% LESS SOURCE FOR DATA: Yattos 1800 OPERATION MANUAL( AUTOMATED BLOOD COUNTS AND [...] Normal 80 and above >32 mL/min Normal Glu 248 mg/dL 70-110 Above high normal [facility] ([facility] NORMAL RANGES Age WBC RBC HGB HCT [...] HCT IS 5% LESS SOURCE FOR DATA: Yattos 1800 OPERATION MANUAL( AUTOMATED BLOOD COUNTS AND [...] Normal 80 and above >32 mL/min Normal BUN 17 mg/dL 8-23 [facility] ([facility] NORMAL RANGES Age WBC RBC HGB HCT [...] HCT IS 5% LESS SOURCE FOR DATA: Yattos 1800 OPERATION MANUAL( AUTOMATED BLOOD COUNTS AND [...] Normal 80 and above >32 mL/min Normal Na 140 mmol/L 136-145 [facility] ([facility] NORMAL RANGES Age WBC RBC HGB HCT [...] HCT IS 5% LESS SOURCE FOR DATA: Yattos 1800 OPERATION MANUAL( AUTOMATED BLOOD COUNTS AND [...] Normal 80 and above >32 mL/min Normal BUN/Creatinine Ratio 17.7 [facility] ([facility] NORMAL RANGES Age WBC RBC HGB HCT [...] HCT IS 5% LESS SOURCE FOR DATA: Yattos 1800 OPERATION MANUAL( AUTOMATED BLOOD COUNTS AND [...] Normal 80 and above >32 mL/min Normal K 4.6 mmol/L 3.5-5.1 [facility] ([facility] NORMAL RANGES Age WBC RBC HGB HCT [...] HCT IS 5% LESS SOURCE FOR DATA: Yattos 1800 OPERATION MANUAL( AUTOMATED BLOOD COUNTS AND [...] Normal 80 and above >32 mL/min Normal CA 9.1 mg/dL 8.6-10.2 [facility] NORMAL RANGES Age WBC RBC HGB HCT MCV PLT Adult M 4.1-10.9 4.20-6.30 12.0-18.0 37.0-51.0 80-97 140-440 Adult F 4.1-10.9 4.04-5.48 12.0-18.0 37.0-51.0 80- 140-440 0 -1 Yr 5.0-20.0 3.9-5.9 15-18 [...] HCT IS 5% LESS SOURCE FOR DATA: [employer]att[employer] 1800 OPERATION MANUAL( AUTOMATED BLOOD COUNTS AND [...] Normal 80 and above >32 mL/min Normal CL 105.3 mmol/L 98.0-107.0 [facility] ([facility] NORMAL RANGES Age WBC RBC HGB HCT [...] HCT IS 5% LESS SOURCE FOR DATA: [employer] 1800 OPERATION MANUAL( AUTOMATED BLOOD COUNTS AND [...] Normal 80 and above >32 mL/min Normal Co2 26.3 mmol/L 22.0-29.0 [employer] ([facility] NORMAL RANGES Age WBC RBC HGB HCT [...] HCT IS 5% LESS SOURCE FOR DATA: [employer] 1800 OPERATION MANUAL( AUTOMATED BLOOD COUNTS AND [...] Normal 80 and above >32 mL/min Normal TP 6.4 g/dL 6.6-8.7 Below low normal [facility] ( [facility] NORMAL RANGES Age WBC RBC HGB HCT [...] HCT IS 5% LESS SOURCE FOR DATA: [employer]attos 1800 OPERATION MANUAL( AUTOMATED BLOOD COUNTS AND [...] Normal 80 and above >32 mL/min Normal A/G Ratio 1.5 CALC [facility] ([facility] NORMAL RANGES Age WBC RBC HGB HCT [...] HCT IS 5% LESS SOURCE FOR DATA: [employer] 1800 OPERATION MANUAL( AUTOMATED BLOOD COUNTS AND [...] Normal 80 and above >32 mL/min Normal Alb 3.8 g/dL 3.4-4.8 [facility] ([facility] NORMAL RANGES Age WBC RBC HGB HCT [...] HCT IS 5% LESS SOURCE FOR DATA: Lamoda DYN 1800 OPERATION MANUAL( AUTOMATED BLOOD COUNTS AND [...] Normal 80 and above >32 mL/min Normal Globulin 2.6 CALC [facility] ([facility] NORMAL RANGES Age WBC RBC HGB HCT [...] HCT IS 5% LESS SOURCE FOR DATA: [employer] 1800 OPERATION MANUAL( AUTOMATED BLOOD COUNTS AND [...] Normal 80 and above >32 mL/min Normal Alp 69.2 U/L 35-129 [facility] ([facility] NORMAL RANGES Age WBC RBC HGB HCT [...] HCT IS 5% LESS SOURCE FOR DATA: [employer] 1800 OPERATION MANUAL( AUTOMATED BLOOD COUNTS AND [...] Normal 80 and above >32 mL/min Normal Alt (SGPT) 17 U/L 0-41 [facility] ([facility] NORMAL RANGES Age WBC RBC HGB HCT [...] HCT IS 5% LESS SOURCE FOR DATA: [employer] 1800 OPERATION MANUAL( AUTOMATED BLOOD COUNTS AND [...] Normal 80 and above >32 mL/min Normal Osmolality-Calculated 289.9 CALC [facility] ([facility] NORMAL RANGES Age WBC RBC HGB HCT [...] HCT IS 5% LESS SOURCE FOR DATA: DAMARIS DYN 1800 OPERATION MANUAL( AUTOMATED BLOOD COUNTS AND [...] Normal 80 and above >32 mL/min Normal Ast (Sgot) 18 U/L 0-40 [facility] ([facility] NORMAL RANGES Age WBC RBC HGB HCT [...] HCT IS 5% LESS SOURCE FOR DATA: [employer] 1800 OPERATION MANUAL( AUTOMATED BLOOD COUNTS AND [...] Normal 80 and above >32 mL/min Normal Tbili 0.37 mg/dL 0.0-1.2 [employer] ([facility] NORMAL RANGES Age WBC RBC HGB HCT [...] HCT IS 5% LESS SOURCE FOR DATA: [employer]os 1800 OPERATION MANUAL( AUTOMATED BLOOD COUNTS AND [...] Normal 80 and above >32 mL/min Normal eGFR Non-Afr. Gibraltarian 55 # [facility] ([facility] NORMAL RANGES Age WBC RBC HGB HCT [...] HCT IS 5% LESS SOURCE FOR DATA: [employer]attos 1800 OPERATION MANUAL( AUTOMATED BLOOD COUNTS AND [...] Normal 80 and above >32 mL/min Normal eGFR 64 # [facility] ( [facility] NORMAL RANGES Age WBC RBC HGB HCT [...] HCT IS 5% LESS SOURCE FOR DATA: [employer]os 1800 OPERATION MANUAL( AUTOMATED BLOOD COUNTS AND [...] Normal 80 and above >32 mL/min Normal Anion Gap 13 mmol/L [facility] ([facility] NORMAL RANGES Age WBC RBC HGB HCT [...] HCT IS 5% LESS SOURCE FOR DATA: [employer] 1800 OPERATION MANUAL( AUTOMATED BLOOD COUNTS AND [...] Normal 80 and above >32 mL/min Normal ID Date Data Source [id number] 12/17/2019 11:09:00 AM EDT [facility] ([facility] Name Value Range Interpretation Code Description Data Su rce(s) Supporting Document(s) WBC 7.9 10E3/uL 4.1-10.9 [facility] ([facility] NORMAL RANGES Age WBC RBC HGB HCT [...] HCT IS 5% LESS SOURCE FOR DATA: [employer] 1800 OPERATION MANUAL( AUTOMATED BLOOD COUNTS AND [...] Normal 80 and above >32 mL/min Normal HCT 40.7 % 37.0-51.0 [facility] ([facility] NORMAL RANGES Age WBC RBC HGB HCT [...] HCT IS 5% LESS SOURCE FOR DATA: [employer] 1800 OPERATION MANUAL( AUTOMATED BLOOD COUNTS AND [...] Normal 80 and above >32 mL/min Normal RBC 4.46 10E6/uL 4.20-6.30 [facility] ([facility] NORMAL RANGES Age WBC RBC HGB HCT [...] HCT IS 5% LESS SOURCE FOR DATA: [employer] 1800 OPERATION MANUAL( AUTOMATED BLOOD COUNTS AND [...] Normal 80 and above >32 mL/min Normal HGB 13.8 g/dL 12.0-18.0 [facility] NORMAL RANGES Age WBC RBC HGB HCT [...] HCT IS 5% LESS SOURCE FOR DATA: DAMARIS DYN 1800 OPERATION MANUAL( AUTOMATED BLOOD COUNTS AND [...] Normal 80 and above >32 mL/min Normal MCV 91.3 fL 80.0-97.0 [facility] ([facility] NORMAL RANGES Age WBC RBC HGB HCT [...] HCT IS 5% LESS SOURCE FOR DATA: [employer]attos 1800 OPERATION MANUAL( AUTOMATED BLOOD COUNTS AND [...] Normal 80 and above >32 mL/min Normal MCHC 33.9 g/dL 31.0-36.0 [facility] ([facility] NORMAL RANGES Age WBC RBC HGB HCT [...] HCT IS 5% LESS SOURCE FOR DATA: [employer]attos 1800 OPERATION MANUAL( AUTOMATED BLOOD COUNTS AND [...] Normal 80 and above >32 mL/min Normal MCH 30.9 pg 26.0-32.0 [facility] ([facility] NORMAL RANGES Age WBC RBC HGB HCT [...] HCT IS 5% LESS SOURCE FOR DATA: [employer]os 1800 OPERATION MANUAL( AUTOMATED BLOOD COUNTS AND [...] Normal 80 and above >32 mL/min Normal PLT 182 10E3/uL 140-440 [facility] ([facility] NORMAL RANGES Age WBC RBC HGB HCT [...] HCT IS 5% LESS SOURCE FOR DATA: [employer] 1800 OPERATION MANUAL( AUTOMATED BLOOD COUNTS AND [...] Normal 80 and above >32 mL/min Normal RDW-CV 13.3 % 11.5-14.5 [facility] ([facility] NORMAL RANGES Age WBC RBC HGB HCT [...] HCT IS 5% LESS SOURCE FOR DATA: [employer]att[employer] 1800 OPERATION MANUAL( AUTOMATED BLOOD COUNTS AND [...] Normal 80 and above >32 mL/min Normal Lym% 23.5 % 10.0-58.5 [facility] ([facility] NORMAL RANGES Age WBC RBC HGB HCT [...] HCT IS 5% LESS SOURCE FOR DATA: [employer] 1800 OPERATION MANUAL( AUTOMATED BLOOD COUNTS AND [...] Normal 80 and above >32 mL/min Normal Neut% 67.6 % 37.0-92.0 [facility] NORMAL RANGES Age WBC RBC HGB HCT [...] HCT IS 5% LESS SOURCE FOR DATA: [employer] 1800 OPERATION MANUAL( AUTOMATED BLOOD COUNTS AND [...] Normal 80 and above >32 mL/min Normal Lym# 1.9 10E3/uL 0.6-4.1 [facility] ([facility] NORMAL RANGES Age WBC RBC HGB HCT [...] HCT IS 5% LESS SOURCE FOR DATA: [employer]os 1800 OPERATION MANUAL( AUTOMATED BLOOD COUNTS AND [...] Normal 80 and above >32 mL/min Normal MXD% 8.9 % 0.1-24.0 [facility] NORMAL RANGES Age WBC RBC HGB HCT [...] HCT IS 5% LESS SOURCE FOR DATA: DAMARIS DYN 1800 OPERATION MANUAL( AUTOMATED BLOOD COUNTS AND [...] Normal 80 and above >32 mL/min Normal Neut# 5.3 % 2.0-7.8 [facility] ([facility] NORMAL RANGES Age WBC RBC HGB HCT MCV PLT Adult M 4.1-10.9 4.20-6.30 12.0-18.0 37.0-51.0 80- 140-440 Adult F 4.1-10.9 4.04-5.48 12.0-18.0 37.0-51.0 80- 140-440 0 -1 Yr 5.0-20.0 3.9-5.9 15-18 [...] HCT IS 5% LESS SOURCE FOR DATA: [employer] 1800 OPERATION MANUAL( AUTOMATED BLOOD COUNTS AND [...] Normal 80 and above >32 mL/min Normal MXD# 0.7 10E3/uL 0.0-1.8 [facility] ([facility] NORMAL RANGES Age WBC RBC HGB HCT [...] HCT IS 5% LESS SOURCE FOR DATA: [employer] 1800 OPERATION MANUAL( AUTOMATED BLOOD COUNTS AND [...] Normal 80 and above >32 mL/min Normal MPV 11.1 fL 9.0-13.0 [facility] ([facility] NORMAL RANGES Age WBC RBC HGB HCT [...] HCT IS 5% LESS SOURCE FOR DATA: [employer] 1800 OPERATION MANUAL( AUTOMATED BLOOD COUNTS AND [...] Normal 80 and above >32 mL/min Normal ID Date Data Source [id number] 12/17/2019 11:09:00 AM EDT [facility] ([facility] Name Value Range Interpretation Code Description Data Su rce(s) Supporting Document(s) Hemoglobin A1c/Hemoglobin.total in Blood 9.6 % 4.4-6.1 Above high normal [facility] ([facility] {A1] {HB] ID Date Data Source [id number] 12/17/2019 06:27:00 PM EDT [facility] Name Value Range Interpretation Code Description Data Su rce(s) Supporting Document(s) Hemoglobin A1c/Hemoglobin.total in Blood 9.6 % 4.4 - 6.1 H [facility] {A1]{HB] ID Date Data Source [id number] 09/17/2019 01:23:00 PM EDT [facility] ([facility] Name Value Range Interpretation Code Description Data Su rce(s) Supporting Document(s) Hemoglobin A1c/Hemoglobin.total in Blood 8.8 % 4.4-6.1 Above high normal [facility] ([facility] {A1] {HB] ID Date Data Source [id number] 09/17/2019 01:23:00 PM EDT [facility] ([facility] Name Value Range Interpretation Code Description Data Su rce(s) Supporting Document(s) Cholesterol in HDL [Mass/volume] in Serum or Plasma 45 mg/dL 45-65 [facility] ([facility] CLASSIFICATION CHOLESTEROL FO R ADULTS CHILDREN/ADOLESCENTS* DESIRABLE: <200 MG/DL <170 MG/DL BORDER-LINE HIGH RISK: 200-239 MG/DL 170-199 MG/DL HIGH RISK: >240 MG/DL >200 MG/DL CLASS. FOR PRIMARY LDL CHOL PREVENTION: LDL CHOL-CHILD/ADOLESCENTS* DESIRABLE: <130 MG/DL <110 MG/DL BORDERLINE-HIGH RISK: 130-159 MG/DL 110-129 MG/DL HIGH RISK: >160 MG/DL >130 MG/DL *CHILDREN AND ADOLESCENTS REPRESENTS INDIVIDUALA AGED 2-19 YEARS EXCLUSIVE. CHRONIC KIDNEY DISEASE STAGING PER NKF: MALE [...] mL/min Normal 80 and above >32 mL/min NormalNORMAL RANGES Age WBC RBC HGB HCT MCV PLT Adult M 4.1-10.9 4.20-6.30 12.0-18.0 37.0-51.0 80-97 140-440 Adult F 4.1-10.9 4.04-5.48 12.0-18.0 37.0-51.0 80-97 140-440 0- 1 Yr 5.0-20.0 3.9-5.9 15-18 MV: 44 MV: 91 MV: 277 2-9 Yr. 6.0-17.0 3.8-5.4 11-13 MV: 37 MV: 78 MV: 300 10 Yrs. 5.0-13.0 3.8-5.4 12-15 MV: 39 MV: 80 MV: 250 NOTE: * FOR ADULT BLACK MALES AND FEMALES, NORMAL WBC IS 2.9-7.7 K/ML * FOR ADULT BLACK MALES AND FEMALES, NORMAL RBC,HGB, AND HCT IS 5% LESS SOURCE FOR DATA: [employer] 1800 OPERATION MANUAL( AUTOMATED BLOOD COUNTS AND DIFF.) APPENDIX B-3 Trig 174 mg/dL 40-200 [facility] CLASSIFICATION CHOLESTEROL FO R ADULTS CHILDREN/ADOLESCENTS* DESIRABLE: <200 MG/DL <170 MG/DL BORDER-LINE HIGH RISK: 200-239 MG/DL 170-199 MG/DL HIGH RISK: >240 MG/DL >200 MG/DL CLASS. FOR PRIMARY LDL CHOL PREVENTION: LDL CHOL-CHILD/ADOLESCENTS* DESIRABLE: <130 MG/DL <110 MG/DL BORDERLINE-HIGH RISK: 130-159 MG/DL 110-129 MG/DL HIGH RISK: >160 MG/DL >130 MG/DL *CHILDREN AND ADOLESCENTS REPRESENTS INDIVIDUALA AGED 2-19 YEARS EXCLUSIVE. CHRONIC KIDNEY DISEASE STAGING PER NKF: MALE [...] mL/min Normal 80 and above >32 mL/min NormalNORMAL RANGES Age WBC RBC HGB HCT MCV PLT Adult M 4.1-10.9 4.20-6.30 12.0-18.0 37.0-51.0 80-97 140-440 Adult F 4.1-10.9 4.04-5.48 12.0-18.0 37.0-51.0 80-97 140-440 0- 1 Yr 5.0-20.0 3.9-5.9 15-18 MV: 44 MV: 91 MV: 277 2-9 Yr. 6.0-17.0 3.8-5.4 11-13 MV: 37 MV: 78 MV: 300 10 Yrs. 5.0-13.0 3.8-5.4 12-15 MV: 39 MV: 80 MV: 250 NOTE: * FOR ADULT BLACK MALES AND FEMALES, NORMAL WBC IS 2.9-7.7 K/ML * FOR ADULT BLACK MALES AND FEMALES, NORMAL RBC,HGB, AND HCT IS 5% LESS SOURCE FOR DATA: DAMARIS DYN 1800 OPERATION MANUAL( AUTOMATED BLOOD COUNTS AND DIFF.) APPENDIX B-3 Chol 150 mg/dL 0-200 [facility] ([facility] CLASSIFICATION CHOLESTEROL FO R ADULTS CHILDREN/ADOLESCENTS* DESIRABLE: <200 MG/DL <170 MG/DL BORDER-LINE HIGH RISK: 200-239 MG/DL 170-199 MG/DL HIGH RISK: >240 MG/DL >200 MG/DL CLASS. FOR PRIMARY LDL CHOL PREVENTION: LDL CHOL-CHILD/ADOLESCENTS* DESIRABLE: <130 MG/DL <110 MG/DL BORDERLINE-HIGH RISK: 130-159 MG/DL 110-129 MG/DL HIGH RISK: >160 MG/DL >130 MG/DL *CHILDREN AND ADOLESCENTS REPRESENTS INDIVIDUALA AGED 2-19 YEARS EXCLUSIVE. CHRONIC KIDNEY DISEASE STAGING PER NKF: MALE [...] mL/min Normal 80 and above >32 mL/min NormalNORMAL RANGES Age WBC RBC HGB HCT MCV PLT Adult M 4.1-10.9 4.20-6.30 12.0-18.0 37.0-51.0 80-97 140-440 Adult F 4.1-10.9 4.04-5.48 12.0-18.0 37.0-51.0 80-97 140-440 0- 1 Yr 5.0-20.0 3.9-5.9 15-18 MV: 44 MV: 91 MV: 277 2-9 Yr. 6.0-17.0 3.8-5.4 11-13 MV: 37 MV: 78 MV: 300 10 Yrs. 5.0-13.0 3.8-5.4 12-15 MV: 39 MV: 80 MV: 250 NOTE: * FOR ADULT BLACK MALES AND FEMALES, NORMAL WBC IS 2.9-7.7 K/ML * FOR ADULT BLACK MALES AND FEMALES, NORMAL RBC,HGB, AND HCT IS 5% LESS SOURCE FOR DATA: Lamoda DYN 1800 OPERATION MANUAL( AUTOMATED BLOOD COUNTS AND DIFF.) APPENDIX B-3 Cho/HDL Ratio 3.4 CALC [facility] ([facility] CLASSIFICATION CHOLESTEROL FO R ADULTS CHILDREN/ADOLESCENTS* DESIRABLE: <200 MG/DL <170 MG/DL BORDER-LINE HIGH RISK: 200-239 MG/DL 170-199 MG/DL HIGH RISK: >240 MG/DL >200 MG/DL CLASS. FOR PRIMARY LDL CHOL PREVENTION: LDL CHOL-CHILD/ADOLESCENTS* DESIRABLE: <130 MG/DL <110 MG/DL BORDERLINE-HIGH RISK: 130-159 MG/DL 110-129 MG/DL HIGH RISK: >160 MG/DL >130 MG/DL *CHILDREN AND ADOLESCENTS REPRESENTS INDIVIDUALA AGED 2-19 YEARS EXCLUSIVE. CHRONIC KIDNEY DISEASE STAGING PER NKF: MALE [...] mL/min Normal 80 and above >32 mL/min NormalNORMAL RANGES Age WBC RBC HGB HCT MCV PLT Adult M 4.1-10.9 4.20-6.30 12.0-18.0 37.0-51.0 80-97 140-440 Adult F 4.1-10.9 4.04-5.48 12.0-18.0 37.0-51.0 80-97 140-440 0- 1 Yr 5.0-20.0 3.9-5.9 15-18 MV: 44 MV: 91 MV: 277 2-9 Yr. 6.0-17.0 3.8-5.4 11-13 MV: 37 MV: 78 MV: 300 10 Yrs. 5.0-13.0 3.8-5.4 12-15 MV: 39 MV: 80 MV: 250 NOTE: * FOR ADULT BLACK MALES AND FEMALES, NORMAL WBC IS 2.9-7.7 K/ML * FOR ADULT BLACK MALES AND FEMALES, NORMAL RBC,HGB, AND HCT IS 5% LESS SOURCE FOR DATA: [employer] 1800 OPERATION MANUAL( AUTOMATED BLOOD COUNTS AND DIFF.) APPENDIX B-3 LDL_C 70 Calc 75-129 Below low normal [facility] ( [facility] CLASSIFICATION CHOLESTEROL FO R ADULTS CHILDREN/ADOLESCENTS* DESIRABLE: <200 MG/DL <170 MG/DL BORDER-LINE HIGH RISK: 200-239 MG/DL 170-199 MG/DL HIGH RISK: >240 MG/DL >200 MG/DL CLASS. FOR PRIMARY LDL CHOL PREVENTION: LDL CHOL-CHILD/ADOLESCENTS* DESIRABLE: <130 MG/DL <110 MG/DL BORDERLINE-HIGH RISK: 130-159 MG/DL 110-129 MG/DL HIGH RISK: >160 MG/DL >130 MG/DL *CHILDREN AND ADOLESCENTS REPRESENTS INDIVIDUALA AGED 2-19 YEARS EXCLUSIVE. CHRONIC KIDNEY DISEASE STAGING PER NKF: MALE [...] mL/min Normal 80 and above >32 mL/min NormalNORMAL RANGES Age WBC RBC HGB HCT MCV PLT Adult M 4.1-10.9 4.20-6.30 12.0-18.0 37.0-51.0 80-97 140-440 Adult F 4.1-10.9 4.04-5.48 12.0-18.0 37.0-51.0 80-97 140-440 0- 1 Yr 5.0-20.0 3.9-5.9 15-18 MV: 44 MV: 91 MV: 277 2-9 Yr. 6.0-17.0 3.8-5.4 11-13 MV: 37 MV: 78 MV: 300 10 Yrs. 5.0-13.0 3.8-5.4 12-15 MV: 39 MV: 80 MV: 250 NOTE: * FOR ADULT BLACK MALES AND FEMALES, NORMAL WBC IS 2.9-7.7 K/ML * FOR ADULT BLACK MALES AND FEMALES, NORMAL RBC,HGB, AND HCT IS 5% LESS SOURCE FOR DATA: [employer] 1800 OPERATION MANUAL( AUTOMATED BLOOD COUNTS AND DIFF.) APPENDIX B-3 ID Date Data Source [id number] 09/17/2019 01:23:00 PM EDT [facility] ([facility] Name Value Range Interpretation Code Description Data Su rce(s) Supporting Document(s) Creatine kinase [Enzymatic activity/volume] in Serum or Plasma 127 U/L 26-192 [facility] ([facility] CLASSIFICATION CHOLESTEROL FO R ADULTS CHILDREN/ADOLESCENTS* DESIRABLE: <200 MG/DL <170 MG/DL BORDER-LINE HIGH RISK: 200-239 MG/DL 170-199 MG/DL HIGH RISK: >240 MG/DL >200 MG/DL CLASS. FOR PRIMARY LDL CHOL PREVENTION: LDL CHOL-CHILD/ADOLESCENTS* DESIRABLE: <130 MG/DL <110 MG/DL BORDERLINE-HIGH RISK: 130-159 MG/DL 110-129 MG/DL HIGH RISK: >160 MG/DL >130 MG/DL *CHILDREN AND ADOLESCENTS REPRESENTS INDIVIDUALA AGED 2-19 YEARS EXCLUSIVE. CHRONIC KIDNEY DISEASE STAGING PER NKF: MALE [...] mL/min Normal 80 and above >32 mL/min NormalNORMAL RANGES Age WBC RBC HGB HCT MCV PLT Adult M 4.1-10.9 4.20-6.30 12.0-18.0 37.0-51.0 80-97 140-440 Adult F 4.1-10.9 4.04-5.48 12.0-18.0 37.0-51.0 80-97 140-440 0- 1 Yr 5.0-20.0 3.9-5.9 15-18 MV: 44 MV: 91 MV: 277 2-9 Yr. 6.0-17.0 3.8-5.4 11-13 MV: 37 MV: 78 MV: 300 10 Yrs. 5.0-13.0 3.8-5.4 12-15 MV: 39 MV: 80 MV: 250 NOTE: * FOR ADULT BLACK MALES AND FEMALES, NORMAL WBC IS 2.9-7.7 K/ML * FOR ADULT BLACK MALES AND FEMALES, NORMAL RBC,HGB, AND HCT IS 5% LESS SOURCE FOR DATA: [employer] 1800 OPERATION MANUAL( AUTOMATED BLOOD COUNTS AND DIFF.) APPENDIX B-3 ID Date Data Source [id number] 09/17/2019 01:23:00 PM EDT [facility] ([facility] Name Value Range Interpretation Code Description Data Su rce(s) Supporting Document(s) Glu 215 mg/dL 70-[address] [facility] ([facility] CLASSIFICATION CHOLESTEROL FO R ADULTS CHILDREN/ADOLESCENTS* DESIRABLE: <200 MG/DL <170 MG/DL BORDER-LINE HIGH RISK: 200-239 MG/DL 170-199 MG/DL HIGH RISK: >240 MG/DL >200 MG/DL CLASS. FOR PRIMARY LDL CHOL PREVENTION: LDL CHOL-CHILD/ADOLESCENTS* DESIRABLE: <130 MG/DL <110 MG/DL BORDERLINE-HIGH RISK: 130-159 MG/DL 110-129 MG/DL HIGH RISK: >160 MG/DL >130 MG/DL *CHILDREN AND ADOLESCENTS REPRESENTS INDIVIDUALA AGED 2-19 YEARS EXCLUSIVE. CHRONIC KIDNEY DISEASE STAGING PER NKF: MALE [...] mL/min Normal 80 and above >32 mL/min NormalNORMAL RANGES Age WBC RBC HGB HCT MCV PLT Adult M 4.1-10.9 4.20-6.30 12.0-18.0 37.0-51.0 80-97 140-440 Adult F 4.1-10.9 4.04-5.48 12.0-18.0 37.0-51.0 80-97 140-440 0- 1 Yr 5.0-20.0 3.9-5.9 15-18 MV: 44 MV: 91 MV: 277 2-9 Yr. 6.0-17.0 3.8-5.4 11-13 MV: 37 MV: 78 MV: 300 10 Yrs. 5.0-13.0 3.8-5.4 12-15 MV: 39 MV: 80 MV: 250 NOTE: * FOR ADULT BLACK MALES AND FEMALES, NORMAL WBC IS 2.9-7.7 K/ML * FOR ADULT BLACK MALES AND FEMALES, NORMAL RBC,HGB, AND HCT IS 5% LESS SOURCE FOR DATA: DAMARIS DYN 1800 OPERATION MANUAL( AUTOMATED BLOOD COUNTS AND DIFF.) APPENDIX B-3 BUN 20 mg/dL 8-23 [facility] CLASSIFICATION CHOLESTEROL FO R ADULTS CHILDREN/ADOLESCENTS* DESIRABLE: <200 MG/DL <170 MG/DL BORDER-LINE HIGH RISK: 200-239 MG/DL 170-199 MG/DL HIGH RISK: >240 MG/DL >200 MG/DL CLASS. FOR PRIMARY LDL CHOL PREVENTION: LDL CHOL-CHILD/ADOLESCENTS* DESIRABLE: <130 MG/DL <110 MG/DL BORDERLINE-HIGH RISK: 130-159 MG/DL 110-129 MG/DL HIGH RISK: >160 MG/DL >130 MG/DL *CHILDREN AND ADOLESCENTS REPRESENTS INDIVIDUALA AGED 2-19 YEARS EXCLUSIVE. CHRONIC KIDNEY DISEASE STAGING PER NKF: MALE [...] mL/min Normal 80 and above >32 mL/min NormalNORMAL RANGES Age WBC RBC HGB HCT MCV PLT Adult M 4.1-10.9 4.20-6.30 12.0-18.0 37.0-51.0 80- 140-440 Adult F 4.1-10.9 4.04-5.48 12.0-18.0 37.0-51.0 80-97 140-440 0- 1 Yr 5.0-20.0 3.9-5.9 15-18 MV: 44 MV: 91 MV: 277 2-9 Yr. 6.0-17.0 3.8-5.4 11-13 MV: 37 MV: 78 MV: 300 10 Yrs. 5.0-13.0 3.8-5.4 12-15 MV: 39 MV: 80 MV: 250 NOTE: * FOR ADULT BLACK MALES AND FEMALES, NORMAL WBC IS 2.9-7.7 K/ML * FOR ADULT BLACK MALES AND FEMALES, NORMAL RBC,HGB, AND HCT IS 5% LESS SOURCE FOR DATA: Yattos 1800 OPERATION MANUAL( AUTOMATED BLOOD COUNTS AND DIFF.) APPENDIX B-3 Creat 0.9 mg/dL 0.5-1.0 [facility] ([facility] CLASSIFICATION CHOLESTEROL FO R ADULTS CHILDREN/ADOLESCENTS* DESIRABLE: <200 MG/DL <170 MG/DL BORDER-LINE HIGH RISK: 200-239 MG/DL 170-199 MG/DL HIGH RISK: >240 MG/DL >200 MG/DL CLASS. FOR PRIMARY LDL CHOL PREVENTION: LDL CHOL-CHILD/ADOLESCENTS* DESIRABLE: <130 MG/DL <110 MG/DL BORDERLINE-HIGH RISK: 130-159 MG/DL 110-129 MG/DL HIGH RISK: >160 MG/DL >130 MG/DL *CHILDREN AND ADOLESCENTS REPRESENTS INDIVIDUALA AGED 2-19 YEARS EXCLUSIVE. CHRONIC KIDNEY DISEASE STAGING PER NKF: MALE [...] mL/min Normal 80 and above >32 mL/min NormalNORMAL RANGES Age WBC RBC HGB HCT MCV PLT Adult M 4.1-10.9 4.20-6.30 12.0-18.0 37.0-51.0 80-97 140-440 Adult F 4.1-10.9 4.04-5.48 12.0-18.0 37.0-51.0 80-97 140-440 0- 1 Yr 5.0-20.0 3.9-5.9 15-18 MV: 44 MV: 91 MV: 277 2-9 Yr. 6.0-17.0 3.8-5.4 11-13 MV: 37 MV: 78 MV: 300 10 Yrs. 5.0-13.0 3.8-5.4 12-15 MV: 39 MV: 80 MV: 250 NOTE: * FOR ADULT BLACK MALES AND FEMALES, NORMAL WBC IS 2.9-7.7 K/ML * FOR ADULT BLACK MALES AND FEMALES, NORMAL RBC,HGB, AND HCT IS 5% LESS SOURCE FOR DATA: Yattos 1800 OPERATION MANUAL( AUTOMATED BLOOD COUNTS AND DIFF.) APPENDIX B-3 BUN/Creatinine Ratio 21.[address] [facility] ([facility] CLASSIFICATION CHOLESTEROL FO R ADULTS CHILDREN/ADOLESCENTS* DESIRABLE: <200 MG/DL <170 MG/DL BORDER-LINE HIGH RISK: 200-239 MG/DL 170-199 MG/DL HIGH RISK: >240 MG/DL >200 MG/DL CLASS. FOR PRIMARY LDL CHOL PREVENTION: LDL CHOL-CHILD/ADOLESCENTS* DESIRABLE: <130 MG/DL <110 MG/DL BORDERLINE-HIGH RISK: 130-159 MG/DL 110-129 MG/DL HIGH RISK: >160 MG/DL >130 MG/DL *CHILDREN AND ADOLESCENTS REPRESENTS INDIVIDUALA AGED 2-19 YEARS EXCLUSIVE. CHRONIC KIDNEY DISEASE STAGING PER NKF: MALE [...] mL/min Normal 80 and above >32 mL/min NormalNORMAL RANGES Age WBC RBC HGB HCT MCV PLT Adult M 4.1-10.9 4.20-6.30 12.0-18.0 37.0-51.0 80-97 140-440 Adult F 4.1-10.9 4.04-5.48 12.0-18.0 37.0-51.0 80-97 140-440 0- 1 Yr 5.0-20.0 3.9-5.9 15-18 MV: 44 MV: 91 MV: 277 2-9 Yr. 6.0-17.0 3.8-5.4 11-13 MV: 37 MV: 78 MV: 300 10 Yrs. 5.0-13.0 3.8-5.4 12-15 MV: 39 MV: 80 MV: 250 NOTE: * FOR ADULT BLACK MALES AND FEMALES, NORMAL WBC IS 2.9-7.7 K/ML * FOR ADULT BLACK MALES AND FEMALES, NORMAL RBC,HGB, AND HCT IS 5% LESS SOURCE FOR DATA: DAMARIS DYN 1800 OPERATION MANUAL( AUTOMATED BLOOD COUNTS AND DIFF.) APPENDIX B-3 Na 141 mmol/L 136-145 [facility] ([facility] CLASSIFICATION CHOLESTEROL FO R ADULTS CHILDREN/ADOLESCENTS* DESIRABLE: <200 MG/DL <170 MG/DL BORDER-LINE HIGH RISK: 200-239 MG/DL 170-199 MG/DL HIGH RISK: >240 MG/DL >200 MG/DL CLASS. FOR PRIMARY LDL CHOL PREVENTION: LDL CHOL-CHILD/ADOLESCENTS* DESIRABLE: <130 MG/DL <110 MG/DL BORDERLINE-HIGH RISK: 130-159 MG/DL 110-129 MG/DL HIGH RISK: >160 MG/DL >130 MG/DL *CHILDREN AND ADOLESCENTS REPRESENTS INDIVIDUALA AGED 2-19 YEARS EXCLUSIVE. CHRONIC KIDNEY DISEASE STAGING PER NKF: MALE [...] mL/min Normal 80 and above >32 mL/min NormalNORMAL RANGES Age WBC RBC HGB HCT MCV PLT Adult M 4.1-10.9 4.20-6.30 12.0-18.0 37.0-51.0 80-97 140-440 Adult F 4.1-10.9 4.04-5.48 12.0-18.0 37.0-51.0 80-97 140-440 0- 1 Yr 5.0-20.0 3.9-5.9 15-18 MV: 44 MV: 91 MV: 277 2-9 Yr. 6.0-17.0 3.8-5.4 11-13 MV: 37 MV: 78 MV: 300 10 Yrs. 5.0-13.0 3.8-5.4 12-15 MV: 39 MV: 80 MV: 250 NOTE: * FOR ADULT BLACK MALES AND FEMALES, NORMAL WBC IS 2.9-7.7 K/ML * FOR ADULT BLACK MALES AND FEMALES, NORMAL RBC,HGB, AND HCT IS 5% LESS SOURCE FOR DATA: DAMARIS DYN 1800 OPERATION MANUAL( AUTOMATED BLOOD COUNTS AND DIFF.) APPENDIX B-3 K 4.6 mmol/L 3.5-5.1 [facility] ([facility] CLASSIFICATION CHOLESTEROL FO R ADULTS CHILDREN/ADOLESCENTS* DESIRABLE: <200 MG/DL <170 MG/DL BORDER-LINE HIGH RISK: 200-239 MG/DL 170-199 MG/DL HIGH RISK: >240 MG/DL >200 MG/DL CLASS. FOR PRIMARY LDL CHOL PREVENTION: LDL CHOL-CHILD/ADOLESCENTS* DESIRABLE: <130 MG/DL <110 MG/DL BORDERLINE-HIGH RISK: 130-159 MG/DL 110-129 MG/DL HIGH RISK: >160 MG/DL >130 MG/DL *CHILDREN AND ADOLESCENTS REPRESENTS INDIVIDUALA AGED 2-19 YEARS EXCLUSIVE. CHRONIC KIDNEY DISEASE STAGING PER NKF: MALE [...] mL/min Normal 80 and above >32 mL/min NormalNORMAL RANGES Age WBC RBC HGB HCT MCV PLT Adult M 4.1-10.9 4.20-6.30 12.0-18.0 37.0-51.0 80-97 140-440 Adult F 4.1-10.9 4.04-5.48 12.0-18.0 37.0-51.0 80-97 140-440 0- 1 Yr 5.0-20.0 3.9-5.9 15-18 MV: 44 MV: 91 MV: 277 2-9 Yr. 6.0-17.0 3.8-5.4 11-13 MV: 37 MV: 78 MV: 300 10 Yrs. 5.0-13.0 3.8-5.4 12-15 MV: 39 MV: 80 MV: 250 NOTE: * FOR ADULT BLACK MALES AND FEMALES, NORMAL WBC IS 2.9-7.7 K/ML * FOR ADULT BLACK MALES AND FEMALES, NORMAL RBC,HGB, AND HCT IS 5% LESS SOURCE FOR DATA: Yattos 1800 OPERATION MANUAL( AUTOMATED BLOOD COUNTS AND DIFF.) APPENDIX B-3 CL 106.6 mmol/L 98.0-107.0 [facility] CLASSIFICATION CHOLESTEROL FO R ADULTS CHILDREN/ADOLESCENTS* DESIRABLE: <200 MG/DL <170 MG/DL BORDER-LINE HIGH RISK: 200-239 MG/DL 170-199 MG/DL HIGH RISK: >240 MG/DL >200 MG/DL CLASS. FOR PRIMARY LDL CHOL PREVENTION: LDL CHOL-CHILD/ADOLESCENTS* DESIRABLE: <130 MG/DL <110 MG/DL BORDERLINE-HIGH RISK: 130-159 MG/DL 110-129 MG/DL HIGH RISK: >160 MG/DL >130 MG/DL *CHILDREN AND ADOLESCENTS REPRESENTS INDIVIDUALA AGED 2-19 YEARS EXCLUSIVE. CHRONIC KIDNEY DISEASE STAGING PER NKF: MALE [...] mL/min Normal 80 and above >32 mL/min NormalNORMAL RANGES Age WBC RBC HGB HCT MCV PLT Adult M 4.1-10.9 4.20-6.30 12.0-18.0 37.0-51.0 80-97 140-440 Adult F 4.1-10.9 4.04-5.48 12.0-18.0 37.0-51.0 80-97 140-440 0- 1 Yr 5.0-20.0 3.9-5.9 15-18 MV: 44 MV: 91 MV: 277 2-9 Yr. 6.0-17.0 3.8-5.4 11-13 MV: 37 MV: 78 MV: 300 10 Yrs. 5.0-13.0 3.8-5.4 12-15 MV: 39 MV: 80 MV: 250 NOTE: * FOR ADULT BLACK MALES AND FEMALES, NORMAL WBC IS 2.9-7.7 K/ML * FOR ADULT BLACK MALES AND FEMALES, NORMAL RBC,HGB, AND HCT IS 5% LESS SOURCE FOR DATA: DAMARIS DYN 1800 OPERATION MANUAL( AUTOMATED BLOOD COUNTS AND DIFF.) APPENDIX B-3 Co2 22.5 mmol/L 22.0-29.0 [employer] ([facility] CLASSIFICATION CHOLESTEROL FO R ADULTS CHILDREN/ADOLESCENTS* DESIRABLE: <200 MG/DL <170 MG/DL BORDER-LINE HIGH RISK: 200-239 MG/DL 170-199 MG/DL HIGH RISK: >240 MG/DL >200 MG/DL CLASS. FOR PRIMARY LDL CHOL PREVENTION: LDL CHOL-CHILD/ADOLESCENTS* DESIRABLE: <130 MG/DL <110 MG/DL BORDERLINE-HIGH RISK: 130-159 MG/DL 110-129 MG/DL HIGH RISK: >160 MG/DL >130 MG/DL *CHILDREN AND ADOLESCENTS REPRESENTS INDIVIDUALA AGED 2-19 YEARS EXCLUSIVE. CHRONIC KIDNEY DISEASE STAGING PER NKF: MALE [...] mL/min Normal 80 and above >32 mL/min NormalNORMAL RANGES Age WBC RBC HGB HCT MCV PLT Adult M 4.1-10.9 4.20-6.30 12.0-18.0 37.0-51.0 80-97 140-440 Adult F 4.1-10.9 4.04-5.48 12.0-18.0 37.0-51.0 80-97 140-440 0- 1 Yr 5.0-20.0 3.9-5.9 15-18 MV: 44 MV: 91 MV: 277 2-9 Yr. 6.0-17.0 3.8-5.4 11-13 MV: 37 MV: 78 MV: 300 10 Yrs. 5.0-13.0 3.8-5.4 12-15 MV: 39 MV: 80 MV: 250 NOTE: * FOR ADULT BLACK MALES AND FEMALES, NORMAL WBC IS 2.9-7.7 K/ML * FOR ADULT BLACK MALES AND FEMALES, NORMAL RBC,HGB, AND HCT IS 5% LESS SOURCE FOR DATA: Yattos 1800 OPERATION MANUAL( AUTOMATED BLOOD COUNTS AND DIFF.) APPENDIX B-3 TP 6.3 g/dL 6.6-8.7 Below low normal [facility] ( [facility] CLASSIFICATION CHOLESTEROL FO R ADULTS CHILDREN/ADOLESCENTS* DESIRABLE: <200 MG/DL <170 MG/DL BORDER-LINE HIGH RISK: 200-239 MG/DL 170-199 MG/DL HIGH RISK: >240 MG/DL >200 MG/DL CLASS. FOR PRIMARY LDL CHOL PREVENTION: LDL CHOL-CHILD/ADOLESCENTS* DESIRABLE: <130 MG/DL <110 MG/DL BORDERLINE-HIGH RISK: 130-159 MG/DL 110-129 MG/DL HIGH RISK: >160 MG/DL >130 MG/DL *CHILDREN AND ADOLESCENTS REPRESENTS INDIVIDUALA AGED 2-19 YEARS EXCLUSIVE. CHRONIC KIDNEY DISEASE STAGING PER NKF: MALE [...] mL/min Normal 80 and above >32 mL/min NormalNORMAL RANGES Age WBC RBC HGB HCT MCV PLT Adult M 4.1-10.9 4.20-6.30 12.0-18.0 37.0-51.0 80-97 140-440 Adult F 4.1-10.9 4.04-5.48 12.0-18.0 37.0-51.0 80-97 140-440 0- 1 Yr 5.0-20.0 3.9-5.9 15-18 MV: 44 MV: 91 MV: 277 2-9 Yr. 6.0-17.0 3.8-5.4 11-13 MV: 37 MV: 78 MV: 300 10 Yrs. 5.0-13.0 3.8-5.4 12-15 MV: 39 MV: 80 MV: 250 NOTE: * FOR ADULT BLACK MALES AND FEMALES, NORMAL WBC IS 2.9-7.7 K/ML * FOR ADULT BLACK MALES AND FEMALES, NORMAL RBC,HGB, AND HCT IS 5% LESS SOURCE FOR DATA: Yattos 1800 OPERATION MANUAL( AUTOMATED BLOOD COUNTS AND DIFF.) APPENDIX B-3 CA 9.0 mg/dL 8.6-10.2 [facility] ([facility] CLASSIFICATION CHOLESTEROL FO R ADULTS CHILDREN/ADOLESCENTS* DESIRABLE: <200 MG/DL <170 MG/DL BORDER-LINE HIGH RISK: 200-239 MG/DL 170-199 MG/DL HIGH RISK: >240 MG/DL >200 MG/DL CLASS. FOR PRIMARY LDL CHOL PREVENTION: LDL CHOL-CHILD/ADOLESCENTS* DESIRABLE: <130 MG/DL <110 MG/DL BORDERLINE-HIGH RISK: 130-159 MG/DL 110-129 MG/DL HIGH RISK: >160 MG/DL >130 MG/DL *CHILDREN AND ADOLESCENTS REPRESENTS INDIVIDUALA AGED 2-19 YEARS EXCLUSIVE. CHRONIC KIDNEY DISEASE STAGING PER NKF: MALE [...] mL/min Normal 80 and above >32 mL/min NormalNORMAL RANGES Age WBC RBC HGB HCT MCV PLT Adult M 4.1-10.9 4.20-6.30 12.0-18.0 37.0-51.0 80-97 140-440 Adult F 4.1-10.9 4.04-5.48 12.0-18.0 37.0-51.0 80-97 140-440 0- 1 Yr 5.0-20.0 3.9-5.9 15-18 MV: 44 MV: 91 MV: 277 2-9 Yr. 6.0-17.0 3.8-5.4 11-13 MV: 37 MV: 78 MV: 300 10 Yrs. 5.0-13.0 3.8-5.4 12-15 MV: 39 MV: 80 MV: 250 NOTE: * FOR ADULT BLACK MALES AND FEMALES, NORMAL WBC IS 2.9-7.7 K/ML * FOR ADULT BLACK MALES AND FEMALES, NORMAL RBC,HGB, AND HCT IS 5% LESS SOURCE FOR DATA: DAMARIS DYN 1800 OPERATION MANUAL( AUTOMATED BLOOD COUNTS AND DIFF.) APPENDIX B-3 Alb 3.7 g/dL 3.4-4.8 [facility] CLASSIFICATION CHOLESTEROL FO R ADULTS CHILDREN/ADOLESCENTS* DESIRABLE: <200 MG/DL <170 MG/DL BORDER-LINE HIGH RISK: 200-239 MG/DL 170-199 MG/DL HIGH RISK: >240 MG/DL >200 MG/DL CLASS. FOR PRIMARY LDL CHOL PREVENTION: LDL CHOL-CHILD/ADOLESCENTS* DESIRABLE: <130 MG/DL <110 MG/DL BORDERLINE-HIGH RISK: 130-159 MG/DL 110-129 MG/DL HIGH RISK: >160 MG/DL >130 MG/DL *CHILDREN AND ADOLESCENTS REPRESENTS INDIVIDUALA AGED 2-19 YEARS EXCLUSIVE. CHRONIC KIDNEY DISEASE STAGING PER NKF: MALE [...] mL/min Normal 80 and above >32 mL/min NormalNORMAL RANGES Age WBC RBC HGB HCT MCV PLT Adult M 4.1-10.9 4.20-6.30 12.0-18.0 37.0-51.0 80-97 140-440 Adult F 4.1-10.9 4.04-5.48 12.0-18.0 37.0-51.0 80-97 140-440 0- 1 Yr 5.0-20.0 3.9-5.9 15-18 MV: 44 MV: 91 MV: 277 2-9 Yr. 6.0-17.0 3.8-5.4 11-13 MV: 37 MV: 78 MV: 300 10 Yrs. 5.0-13.0 3.8-5.4 12-15 MV: 39 MV: 80 MV: 250 NOTE: * FOR ADULT BLACK MALES AND FEMALES, NORMAL WBC IS 2.9-7.7 K/ML * FOR ADULT BLACK MALES AND FEMALES, NORMAL RBC,HGB, AND HCT IS 5% LESS SOURCE FOR DATA: Yattos 1800 OPERATION MANUAL( AUTOMATED BLOOD COUNTS AND DIFF.) APPENDIX B-3 Globulin 2.6 CALC [facility] CLASSIFICATION CHOLESTEROL FO R ADULTS CHILDREN/ADOLESCENTS* DESIRABLE: <200 MG/DL <170 MG/DL BORDER-LINE HIGH RISK: 200-239 MG/DL 170-199 MG/DL HIGH RISK: >240 MG/DL >200 MG/DL CLASS. FOR PRIMARY LDL CHOL PREVENTION: LDL CHOL-CHILD/ADOLESCENTS* DESIRABLE: <130 MG/DL <110 MG/DL BORDERLINE-HIGH RISK: 130-159 MG/DL 110-129 MG/DL HIGH RISK: >160 MG/DL >130 MG/DL *CHILDREN AND ADOLESCENTS REPRESENTS INDIVIDUALA AGED 2-19 YEARS EXCLUSIVE. CHRONIC KIDNEY DISEASE STAGING PER NKF: MALE [...] mL/min Normal 80 and above >32 mL/min NormalNORMAL RANGES Age WBC RBC HGB HCT MCV PLT Adult M 4.1-10.9 4.20-6.30 12.0-18.0 37.0-51.0 80-97 140-440 Adult F 4.1-10.9 4.04-5.48 12.0-18.0 37.0-51.0 80-97 140-440 0- 1 Yr 5.0-20.0 3.9-5.9 15-18 MV: 44 MV: 91 MV: 277 2-9 Yr. 6.0-17.0 3.8-5.4 11-13 MV: 37 MV: 78 MV: 300 10 Yrs. 5.0-13.0 3.8-5.4 12-15 MV: 39 MV: 80 MV: 250 NOTE: * FOR ADULT BLACK MALES AND FEMALES, NORMAL WBC IS 2.9-7.7 K/ML * FOR ADULT BLACK MALES AND FEMALES, NORMAL RBC,HGB, AND HCT IS 5% LESS SOURCE FOR DATA: Lamoda DYN 1800 OPERATION MANUAL( AUTOMATED BLOOD COUNTS AND DIFF.) APPENDIX B-3 A/G Ratio 1.5 CALC [facility] ([facility] CLASSIFICATION CHOLESTEROL FO R ADULTS CHILDREN/ADOLESCENTS* DESIRABLE: <200 MG/DL <170 MG/DL BORDER-LINE HIGH RISK: 200-239 MG/DL 170-199 MG/DL HIGH RISK: >240 MG/DL >200 MG/DL CLASS. FOR PRIMARY LDL CHOL PREVENTION: LDL CHOL-CHILD/ADOLESCENTS* DESIRABLE: <130 MG/DL <110 MG/DL BORDERLINE-HIGH RISK: 130-159 MG/DL 110-129 MG/DL HIGH RISK: >160 MG/DL >130 MG/DL *CHILDREN AND ADOLESCENTS REPRESENTS INDIVIDUALA AGED 2-19 YEARS EXCLUSIVE. CHRONIC KIDNEY DISEASE STAGING PER NKF: MALE [...] mL/min Normal 80 and above >32 mL/min NormalNORMAL RANGES Age WBC RBC HGB HCT MCV PLT Adult M 4.1-10.9 4.20-6.30 12.0-18.0 37.0-51.0 80-97 140-440 Adult F 4.1-10.9 4.04-5.48 12.0-18.0 37.0-51.0 80-97 140-440 0- 1 Yr 5.0-20.0 3.9-5.9 15-18 MV: 44 MV: 91 MV: 277 2-9 Yr. 6.0-17.0 3.8-5.4 11-13 MV: 37 MV: 78 MV: 300 10 Yrs. 5.0-13.0 3.8-5.4 12-15 MV: 39 MV: 80 MV: 250 NOTE: * FOR ADULT BLACK MALES AND FEMALES, NORMAL WBC IS 2.9-7.7 K/ML * FOR ADULT BLACK MALES AND FEMALES, NORMAL RBC,HGB, AND HCT IS 5% LESS SOURCE FOR DATA: Lamoda DYN 1800 OPERATION MANUAL( AUTOMATED BLOOD COUNTS AND DIFF.) APPENDIX B-3 Alt (SGPT) 19 U/L 0-41 [facility] ([facility] CLASSIFICATION CHOLESTEROL FO R ADULTS CHILDREN/ADOLESCENTS* DESIRABLE: <200 MG/DL <170 MG/DL BORDER-LINE HIGH RISK: 200-239 MG/DL 170-199 MG/DL HIGH RISK: >240 MG/DL >200 MG/DL CLASS. FOR PRIMARY LDL CHOL PREVENTION: LDL CHOL-CHILD/ADOLESCENTS* DESIRABLE: <130 MG/DL <110 MG/DL BORDERLINE-HIGH RISK: 130-159 MG/DL 110-129 MG/DL HIGH RISK: >160 MG/DL >130 MG/DL *CHILDREN AND ADOLESCENTS REPRESENTS INDIVIDUALA AGED 2-19 YEARS EXCLUSIVE. CHRONIC KIDNEY DISEASE STAGING PER NKF: MALE [...] mL/min Normal 80 and above >32 mL/min NormalNORMAL RANGES Age WBC RBC HGB HCT MCV PLT Adult M 4.1-10.9 4.20-6.30 12.0-18.0 37.0-51.0 80-97 140-440 Adult F 4.1-10.9 4.04-5.48 12.0-18.0 37.0-51.0 80-97 140-440 0- 1 Yr 5.0-20.0 3.9-5.9 15-18 MV: 44 MV: 91 MV: 277 2-9 Yr. 6.0-17.0 3.8-5.4 11-13 MV: 37 MV: 78 MV: 300 10 Yrs. 5.0-13.0 3.8-5.4 12-15 MV: 39 MV: 80 MV: 250 NOTE: * FOR ADULT BLACK MALES AND FEMALES, NORMAL WBC IS 2.9-7.7 K/ML * FOR ADULT BLACK MALES AND FEMALES, NORMAL RBC,HGB, AND HCT IS 5% LESS SOURCE FOR DATA: Yattos 1800 OPERATION MANUAL( AUTOMATED BLOOD COUNTS AND DIFF.) APPENDIX B-3 Alp 70.2 U/L 35-129 [facility] CLASSIFICATION CHOLESTEROL FO R ADULTS CHILDREN/ADOLESCENTS* DESIRABLE: <200 MG/DL <170 MG/DL BORDER-LINE HIGH RISK: 200-239 MG/DL 170-199 MG/DL HIGH RISK: >240 MG/DL >200 MG/DL CLASS. FOR PRIMARY LDL CHOL PREVENTION: LDL CHOL-CHILD/ADOLESCENTS* DESIRABLE: <130 MG/DL <110 MG/DL BORDERLINE-HIGH RISK: 130-159 MG/DL 110-129 MG/DL HIGH RISK: >160 MG/DL >130 MG/DL *CHILDREN AND ADOLESCENTS REPRESENTS INDIVIDUALA AGED 2-19 YEARS EXCLUSIVE. CHRONIC KIDNEY DISEASE STAGING PER NKF: MALE [...] mL/min Normal 80 and above >32 mL/min NormalNORMAL RANGES Age WBC RBC HGB HCT MCV PLT Adult M 4.1-10.9 4.20-6.30 12.0-18.0 37.0-51.0 80-97 140-440 Adult F 4.1-10.9 4.04-5.48 12.0-18.0 37.0-51.0 80-97 140-440 0- 1 Yr 5.0-20.0 3.9-5.9 15-18 MV: 44 MV: 91 MV: 277 2-9 Yr. 6.0-17.0 3.8-5.4 11-13 MV: 37 MV: 78 MV: 300 10 Yrs. 5.0-13.0 3.8-5.4 12-15 MV: 39 MV: 80 MV: 250 NOTE: * FOR ADULT BLACK MALES AND FEMALES, NORMAL WBC IS 2.9-7.7 K/ML * FOR ADULT BLACK MALES AND FEMALES, NORMAL RBC,HGB, AND HCT IS 5% LESS SOURCE FOR DATA: DAMARIS DYN 1800 OPERATION MANUAL( AUTOMATED BLOOD COUNTS AND DIFF.) APPENDIX B-3 Ast (Sgot) 18 U/L 0-40 [facility] ([facility] CLASSIFICATION CHOLESTEROL FO R ADULTS CHILDREN/ADOLESCENTS* DESIRABLE: <200 MG/DL <170 MG/DL BORDER-LINE HIGH RISK: 200-239 MG/DL 170-199 MG/DL HIGH RISK: >240 MG/DL >200 MG/DL CLASS. FOR PRIMARY LDL CHOL PREVENTION: LDL CHOL-CHILD/ADOLESCENTS* DESIRABLE: <130 MG/DL <110 MG/DL BORDERLINE-HIGH RISK: 130-159 MG/DL 110-129 MG/DL HIGH RISK: >160 MG/DL >130 MG/DL *CHILDREN AND ADOLESCENTS REPRESENTS INDIVIDUALA AGED 2-19 YEARS EXCLUSIVE. CHRONIC KIDNEY DISEASE STAGING PER NKF: MALE [...] mL/min Normal 80 and above >32 mL/min NormalNORMAL RANGES Age WBC RBC HGB HCT MCV PLT Adult M 4.1-10.9 4.20-6.30 12.0-18.0 37.0-51.0 80-97 140-440 Adult F 4.1-10.9 4.04-5.48 12.0-18.0 37.0-51.0 80-97 140-440 0- 1 Yr 5.0-20.0 3.9-5.9 15-18 MV: 44 MV: 91 MV: 277 2-9 Yr. 6.0-17.0 3.8-5.4 11-13 MV: 37 MV: 78 MV: 300 10 Yrs. 5.0-13.0 3.8-5.4 12-15 MV: 39 MV: 80 MV: 250 NOTE: * FOR ADULT BLACK MALES AND FEMALES, NORMAL WBC IS 2.9-7.7 K/ML * FOR ADULT BLACK MALES AND FEMALES, NORMAL RBC,HGB, AND HCT IS 5% LESS SOURCE FOR DATA: DAMARIS DYN 1800 OPERATION MANUAL( AUTOMATED BLOOD COUNTS AND DIFF.) APPENDIX B-3 Osmolality-Calculated 289.4 [facility] ([facility] CLASSIFICATION CHOLESTEROL FO R ADULTS CHILDREN/ADOLESCENTS* DESIRABLE: <200 MG/DL <170 MG/DL BORDER-LINE HIGH RISK: 200-239 MG/DL 170-199 MG/DL HIGH RISK: >240 MG/DL >200 MG/DL CLASS. FOR PRIMARY LDL CHOL PREVENTION: LDL CHOL-CHILD/ADOLESCENTS* DESIRABLE: <130 MG/DL <110 MG/DL BORDERLINE-HIGH RISK: 130-159 MG/DL 110-129 MG/DL HIGH RISK: >160 MG/DL >130 MG/DL *CHILDREN AND ADOLESCENTS REPRESENTS INDIVIDUALA AGED 2-19 YEARS EXCLUSIVE. CHRONIC KIDNEY DISEASE STAGING PER NKF: MALE [...] mL/min Normal 80 and above >32 mL/min NormalNORMAL RANGES Age WBC RBC HGB HCT MCV PLT Adult M 4.1-10.9 4.20-6.30 12.0-18.0 37.0-51.0 80-97 140-440 Adult F 4.1-10.9 4.04-5.48 12.0-18.0 37.0-51.0 80-97 140-440 0- 1 Yr 5.0-20.0 3.9-5.9 15-18 MV: 44 MV: 91 MV: 277 2-9 Yr. 6.0-17.0 3.8-5.4 11-13 MV: 37 MV: 78 MV: 300 10 Yrs. 5.0-13.0 3.8-5.4 12-15 MV: 39 MV: 80 MV: 250 NOTE: * FOR ADULT BLACK MALES AND FEMALES, NORMAL WBC IS 2.9-7.7 K/ML * FOR ADULT BLACK MALES AND FEMALES, NORMAL RBC,HGB, AND HCT IS 5% LESS SOURCE FOR DATA: [employer] 1800 OPERATION MANUAL( AUTOMATED BLOOD COUNTS AND DIFF.) APPENDIX B-3 Tbili 0.38 mg/dL 0.0-1.2 [facility] CLASSIFICATION CHOLESTEROL FO R ADULTS CHILDREN/ADOLESCENTS* DESIRABLE: <200 MG/DL <170 MG/DL BORDER-LINE HIGH RISK: 200-239 MG/DL 170-199 MG/DL HIGH RISK: >240 MG/DL >200 MG/DL CLASS. FOR PRIMARY LDL CHOL PREVENTION: LDL CHOL-CHILD/ADOLESCENTS* DESIRABLE: <130 MG/DL <110 MG/DL BORDERLINE-HIGH RISK: 130-159 MG/DL 110-129 MG/DL HIGH RISK: >160 MG/DL >130 MG/DL *CHILDREN AND ADOLESCENTS REPRESENTS INDIVIDUALA AGED 2-19 YEARS EXCLUSIVE. CHRONIC KIDNEY DISEASE STAGING PER NKF: MALE [...] mL/min Normal 80 and above >32 mL/min NormalNORMAL RANGES Age WBC RBC HGB HCT MCV PLT Adult M 4.1-10.9 4.20-6.30 12.0-18.0 37.0-51.0 80-97 140-440 Adult F 4.1-10.9 4.04-5.48 12.0-18.0 37.0-51.0 80-97 140-440 0- 1 Yr 5.0-20.0 3.9-5.9 15-18 MV: 44 MV: 91 MV: 277 2-9 Yr. 6.0-17.0 3.8-5.4 11-13 MV: 37 MV: 78 MV: 300 10 Yrs. 5.0-13.0 3.8-5.4 12-15 MV: 39 MV: 80 MV: 250 NOTE: * FOR ADULT BLACK MALES AND FEMALES, NORMAL WBC IS 2.9-7.7 K/ML * FOR ADULT BLACK MALES AND FEMALES, NORMAL RBC,HGB, AND HCT IS 5% LESS SOURCE FOR DATA: DAMARIS DYN 1800 OPERATION MANUAL( AUTOMATED BLOOD COUNTS AND DIFF.) APPENDIX B-3 Anion Gap 16 mmol/L [facility] ([facility] CLASSIFICATION CHOLESTEROL FO R ADULTS CHILDREN/ADOLESCENTS* DESIRABLE: <200 MG/DL <170 MG/DL BORDER-LINE HIGH RISK: 200-239 MG/DL 170-199 MG/DL HIGH RISK: >240 MG/DL >200 MG/DL CLASS. FOR PRIMARY LDL CHOL PREVENTION: LDL CHOL-CHILD/ADOLESCENTS* DESIRABLE: <130 MG/DL <110 MG/DL BORDERLINE-HIGH RISK: 130-159 MG/DL 110-129 MG/DL HIGH RISK: >160 MG/DL >130 MG/DL *CHILDREN AND ADOLESCENTS REPRESENTS INDIVIDUALA AGED 2-19 YEARS EXCLUSIVE. CHRONIC KIDNEY DISEASE STAGING PER NKF: MALE [...] mL/min Normal 80 and above >32 mL/min NormalNORMAL RANGES Age WBC RBC HGB HCT MCV PLT Adult M 4.1-10.9 4.20-6.30 12.0-18.0 37.0-51.0 80-97 140-440 Adult F 4.1-10.9 4.04-5.48 12.0-18.0 37.0-51.0 80-97 140-440 0- 1 Yr 5.0-20.0 3.9-5.9 15-18 MV: 44 MV: 91 MV: 277 2-9 Yr. 6.0-17.0 3.8-5.4 11-13 MV: 37 MV: 78 MV: 300 10 Yrs. 5.0-13.0 3.8-5.4 12-15 MV: 39 MV: 80 MV: 250 NOTE: * FOR ADULT BLACK MALES AND FEMALES, NORMAL WBC IS 2.9-7.7 K/ML * FOR ADULT BLACK MALES AND FEMALES, NORMAL RBC,HGB, AND HCT IS 5% LESS SOURCE FOR DATA: [employer] DYN 1800 OPERATION MANUAL( AUTOMATED BLOOD COUNTS AND DIFF.) APPENDIX B-3 eGFR 72 # [facility] ( [facility] CLASSIFICATION CHOLESTEROL FO R ADULTS CHILDREN/ADOLESCENTS* DESIRABLE: <200 MG/DL <170 MG/DL BORDER-LINE HIGH RISK: 200-239 MG/DL 170-199 MG/DL HIGH RISK: >240 MG/DL >200 MG/DL CLASS. FOR PRIMARY LDL CHOL PREVENTION: LDL CHOL-CHILD/ADOLESCENTS* DESIRABLE: <130 MG/DL <110 MG/DL BORDERLINE-HIGH RISK: 130-159 MG/DL 110-129 MG/DL HIGH RISK: >160 MG/DL >130 MG/DL *CHILDREN AND ADOLESCENTS REPRESENTS INDIVIDUALA AGED 2-19 YEARS EXCLUSIVE. CHRONIC KIDNEY DISEASE STAGING PER NKF: MALE [...] mL/min Normal 80 and above >32 mL/min NormalNORMAL RANGES Age WBC RBC HGB HCT MCV PLT Adult M 4.1-10.9 4.20-6.30 12.0-18.0 37.0-51.0 80-97 140-440 Adult F 4.1-10.9 4.04-5.48 12.0-18.0 37.0-51.0 80-97 140-440 0- 1 Yr 5.0-20.0 3.9-5.9 15-18 MV: 44 MV: 91 MV: 277 2-9 Yr. 6.0-17.0 3.8-5.4 11-13 MV: 37 MV: 78 MV: 300 10 Yrs. 5.0-13.0 3.8-5.4 12-15 MV: 39 MV: 80 MV: 250 NOTE: * FOR ADULT BLACK MALES AND FEMALES, NORMAL WBC IS 2.9-7.7 K/ML * FOR ADULT BLACK MALES AND FEMALES, NORMAL RBC,HGB, AND HCT IS 5% LESS SOURCE FOR DATA: [employer] DYN 1800 OPERATION MANUAL( AUTOMATED BLOOD COUNTS AND DIFF.) APPENDIX B-3 eGFR Non-Afr. [place] 63 # [facility] ([facility] CLASSIFICATION CHOLESTEROL FO R ADULTS CHILDREN/ADOLESCENTS* DESIRABLE: <200 MG/DL <170 MG/DL BORDER-LINE HIGH RISK: 200-239 MG/DL 170-199 MG/DL HIGH RISK: >240 MG/DL >200 MG/DL CLASS. FOR PRIMARY LDL CHOL PREVENTION: LDL CHOL-CHILD/ADOLESCENTS* DESIRABLE: <130 MG/DL <110 MG/DL BORDERLINE-HIGH RISK: 130-159 MG/DL 110-129 MG/DL HIGH RISK: >160 MG/DL >130 MG/DL *CHILDREN AND ADOLESCENTS REPRESENTS INDIVIDUALA AGED 2-19 YEARS EXCLUSIVE. CHRONIC KIDNEY DISEASE STAGING PER NKF: MALE [...] mL/min Normal 80 and above >32 mL/min NormalNORMAL RANGES Age WBC RBC HGB HCT MCV PLT Adult M 4.1-10.9 4.20-6.30 12.0-18.0 37.0-51.0 80-97 140-440 Adult F 4.1-10.9 4.04-5.48 12.0-18.0 37.0-51.0 80-97 140-440 0- 1 Yr 5.0-20.0 3.9-5.9 15-18 MV: 44 MV: 91 MV: 277 2-9 Yr. 6.0-17.0 3.8-5.4 11-13 MV: 37 MV: 78 MV: 300 10 Yrs. 5.0-13.0 3.8-5.4 12-15 MV: 39 MV: 80 MV: 250 NOTE: * FOR ADULT BLACK MALES AND FEMALES, NORMAL WBC IS 2.9-7.7 K/ML * FOR ADULT BLACK MALES AND FEMALES, NORMAL RBC,HGB, AND HCT IS 5% LESS SOURCE FOR DATA: [employer] 1800 OPERATION MANUAL( AUTOMATED BLOOD COUNTS AND DIFF.) APPENDIX B-3 ID Date Data Source [id number] 09/17/2019 01:23:00 PM EDT [facility] Name Value Range Interpretation Code Description Data Su rce(s) Supporting Document(s) WBC 8.4 10E3/uL 4.1-10.9 [facility] ([facility] CLASSIFICATION CHOLESTEROL FO R ADULTS CHILDREN/ADOLESCENTS* DESIRABLE: <200 MG/DL <170 MG/DL BORDER-LINE HIGH RISK: 200-239 MG/DL 170-199 MG/DL HIGH RISK: >240 MG/DL >200 MG/DL CLASS. FOR PRIMARY LDL CHOL PREVENTION: LDL CHOL-CHILD/ADOLESCENTS* DESIRABLE: <130 MG/DL <110 MG/DL BORDERLINE-HIGH RISK: 130-159 MG/DL 110-129 MG/DL HIGH RISK: >160 MG/DL >130 MG/DL *CHILDREN AND ADOLESCENTS REPRESENTS INDIVIDUALA AGED 2-19 YEARS EXCLUSIVE. CHRONIC KIDNEY DISEASE STAGING PER NKF: MALE [...] mL/min Normal 80 and above >32 mL/min NormalNORMAL RANGES Age WBC RBC HGB HCT MCV PLT Adult M 4.1-10.9 4.20-6.30 12.0-18.0 37.0-51.0 80-97 140-440 Adult F 4.1-10.9 4.04-5.48 12.0-18.0 37.0-51.0 80-97 140-440 0- 1 Yr 5.0-20.0 3.9-5.9 15-18 MV: 44 MV: 91 MV: 277 2-9 Yr. 6.0-17.0 3.8-5.4 11-13 MV: 37 MV: 78 MV: 300 10 Yrs. 5.0-13.0 3.8-5.4 12-15 MV: 39 MV: 80 MV: 250 NOTE: * FOR ADULT BLACK MALES AND FEMALES, NORMAL WBC IS 2.9-7.7 K/ML * FOR ADULT BLACK MALES AND FEMALES, NORMAL RBC,HGB, AND HCT IS 5% LESS SOURCE FOR DATA: Yattos 1800 OPERATION MANUAL( AUTOMATED BLOOD COUNTS AND DIFF.) APPENDIX B-3 RBC 4.48 10E6/uL 4.20-6.30 [facility] ([facility] CLASSIFICATION CHOLESTEROL FO R ADULTS CHILDREN/ADOLESCENTS* DESIRABLE: <200 MG/DL <170 MG/DL BORDER-LINE HIGH RISK: 200-239 MG/DL 170-199 MG/DL HIGH RISK: >240 MG/DL >200 MG/DL CLASS. FOR PRIMARY LDL CHOL PREVENTION: LDL CHOL-CHILD/ADOLESCENTS* DESIRABLE: <130 MG/DL <110 MG/DL BORDERLINE-HIGH RISK: 130-159 MG/DL 110-129 MG/DL HIGH RISK: >160 MG/DL >130 MG/DL *CHILDREN AND ADOLESCENTS REPRESENTS INDIVIDUALA AGED 2-19 YEARS EXCLUSIVE. CHRONIC KIDNEY DISEASE STAGING PER NKF: MALE [...] mL/min Normal 80 and above >32 mL/min NormalNORMAL RANGES Age WBC RBC HGB HCT MCV PLT Adult M 4.1-10.9 4.20-6.30 12.0-18.0 37.0-51.0 80-97 140-440 Adult F 4.1-10.9 4.04-5.48 12.0-18.0 37.0-51.0 80-97 140-440 0- 1 Yr 5.0-20.0 3.9-5.9 15-18 MV: 44 MV: 91 MV: 277 2-9 Yr. 6.0-17.0 3.8-5.4 11-13 MV: 37 MV: 78 MV: 300 10 Yrs. 5.0-13.0 3.8-5.4 12-15 MV: 39 MV: 80 MV: 250 NOTE: * FOR ADULT BLACK MALES AND FEMALES, NORMAL WBC IS 2.9-7.7 K/ML * FOR ADULT BLACK MALES AND FEMALES, NORMAL RBC,HGB, AND HCT IS 5% LESS SOURCE FOR DATA: Yattos 1800 OPERATION MANUAL( AUTOMATED BLOOD COUNTS AND DIFF.) APPENDIX B-3 MCV 91.5 fL 80.0-97.0 [facility] ([facility] CLASSIFICATION CHOLESTEROL FO R ADULTS CHILDREN/ADOLESCENTS* DESIRABLE: <200 MG/DL <170 MG/DL BORDER-LINE HIGH RISK: 200-239 MG/DL 170-199 MG/DL HIGH RISK: >240 MG/DL >200 MG/DL CLASS. FOR PRIMARY LDL CHOL PREVENTION: LDL CHOL-CHILD/ADOLESCENTS* DESIRABLE: <130 MG/DL <110 MG/DL BORDERLINE-HIGH RISK: 130-159 MG/DL 110-129 MG/DL HIGH RISK: >160 MG/DL >130 MG/DL *CHILDREN AND ADOLESCENTS REPRESENTS INDIVIDUALA AGED 2-19 YEARS EXCLUSIVE. CHRONIC KIDNEY DISEASE STAGING PER NKF: MALE [...] mL/min Normal 80 and above >32 mL/min NormalNORMAL RANGES Age WBC RBC HGB HCT MCV PLT Adult M 4.1-10.9 4.20-6.30 12.0-18.0 37.0-51.0 80-97 140-440 Adult F 4.1-10.9 4.04-5.48 12.0-18.0 37.0-51.0 80-97 140-440 0- 1 Yr 5.0-20.0 3.9-5.9 15-18 MV: 44 MV: 91 MV: 277 2-9 Yr. 6.0-17.0 3.8-5.4 11-13 MV: 37 MV: 78 MV: 300 10 Yrs. 5.0-13.0 3.8-5.4 12-15 MV: 39 MV: 80 MV: 250 NOTE: * FOR ADULT BLACK MALES AND FEMALES, NORMAL WBC IS 2.9-7.7 K/ML * FOR ADULT BLACK MALES AND FEMALES, NORMAL RBC,HGB, AND HCT IS 5% LESS SOURCE FOR DATA: DAMARIS DYN 1800 OPERATION MANUAL( AUTOMATED BLOOD COUNTS AND DIFF.) APPENDIX B-3 HCT 41.0 % 37.0-51.0 [facility] ([facility] CLASSIFICATION CHOLESTEROL FO R ADULTS CHILDREN/ADOLESCENTS* DESIRABLE: <200 MG/DL <170 MG/DL BORDER-LINE HIGH RISK: 200-239 MG/DL 170-199 MG/DL HIGH RISK: >240 MG/DL >200 MG/DL CLASS. FOR PRIMARY LDL CHOL PREVENTION: LDL CHOL-CHILD/ADOLESCENTS* DESIRABLE: <130 MG/DL <110 MG/DL BORDERLINE-HIGH RISK: 130-159 MG/DL 110-129 MG/DL HIGH RISK: >160 MG/DL >130 MG/DL *CHILDREN AND ADOLESCENTS REPRESENTS INDIVIDUALA AGED 2-19 YEARS EXCLUSIVE. CHRONIC KIDNEY DISEASE STAGING PER NKF: MALE [...] mL/min Normal 80 and above >32 mL/min NormalNORMAL RANGES Age WBC RBC HGB HCT MCV PLT Adult M 4.1-10.9 4.20-6.30 12.0-18.0 37.0-51.0 80-97 140-440 Adult F 4.1-10.9 4.04-5.48 12.0-18.0 37.0-51.0 80-97 140-440 0- 1 Yr 5.0-20.0 3.9-5.9 15-18 MV: 44 MV: 91 MV: 277 2-9 Yr. 6.0-17.0 3.8-5.4 11-13 MV: 37 MV: 78 MV: 300 10 Yrs. 5.0-13.0 3.8-5.4 12-15 MV: 39 MV: 80 MV: 250 NOTE: * FOR ADULT BLACK MALES AND FEMALES, NORMAL WBC IS 2.9-7.7 K/ML * FOR ADULT BLACK MALES AND FEMALES, NORMAL RBC,HGB, AND HCT IS 5% LESS SOURCE FOR DATA: DAMARIS DYN 1800 OPERATION MANUAL( AUTOMATED BLOOD COUNTS AND DIFF.) APPENDIX B-3 HGB 13.8 g/dL 12.0-18.0 [facility] ([facility] CLASSIFICATION CHOLESTEROL FO R ADULTS CHILDREN/ADOLESCENTS* DESIRABLE: <200 MG/DL <170 MG/DL BORDER-LINE HIGH RISK: 200-239 MG/DL 170-199 MG/DL HIGH RISK: >240 MG/DL >200 MG/DL CLASS. FOR PRIMARY LDL CHOL PREVENTION: LDL CHOL-CHILD/ADOLESCENTS* DESIRABLE: <130 MG/DL <110 MG/DL BORDERLINE-HIGH RISK: 130-159 MG/DL 110-129 MG/DL HIGH RISK: >160 MG/DL >130 MG/DL *CHILDREN AND ADOLESCENTS REPRESENTS INDIVIDUALA AGED 2-19 YEARS EXCLUSIVE. CHRONIC KIDNEY DISEASE STAGING PER NKF: MALE [...] mL/min Normal 80 and above >32 mL/min NormalNORMAL RANGES Age WBC RBC HGB HCT MCV PLT Adult M 4.1-10.9 4.20-6.30 12.0-18.0 37.0-51.0 80-97 140-440 Adult F 4.1-10.9 4.04-5.48 12.0-18.0 37.0-51.0 80-97 140-440 0- 1 Yr 5.0-20.0 3.9-5.9 15-18 MV: 44 MV: 91 MV: 277 2-9 Yr. 6.0-17.0 3.8-5.4 11-13 MV: 37 MV: 78 MV: 300 10 Yrs. 5.0-13.0 3.8-5.4 12-15 MV: 39 MV: 80 MV: 250 NOTE: * FOR ADULT BLACK MALES AND FEMALES, NORMAL WBC IS 2.9-7.7 K/ML * FOR ADULT BLACK MALES AND FEMALES, NORMAL RBC,HGB, AND HCT IS 5% LESS SOURCE FOR DATA: DAMARIS DYN 1800 OPERATION MANUAL( AUTOMATED BLOOD COUNTS AND DIFF.) APPENDIX B-3 PLT 194 10E3/uL 140-440 [facility] CLASSIFICATION CHOLESTEROL FO R ADULTS CHILDREN/ADOLESCENTS* DESIRABLE: <200 MG/DL <170 MG/DL BORDER-LINE HIGH RISK: 200-239 MG/DL 170-199 MG/DL HIGH RISK: >240 MG/DL >200 MG/DL CLASS. FOR PRIMARY LDL CHOL PREVENTION: LDL CHOL-CHILD/ADOLESCENTS* DESIRABLE: <130 MG/DL <110 MG/DL BORDERLINE-HIGH RISK: 130-159 MG/DL 110-129 MG/DL HIGH RISK: >160 MG/DL >130 MG/DL *CHILDREN AND ADOLESCENTS REPRESENTS INDIVIDUALA AGED 2-19 YEARS EXCLUSIVE. CHRONIC KIDNEY DISEASE STAGING PER NKF: MALE [...] mL/min Normal 80 and above >32 mL/min NormalNORMAL RANGES Age WBC RBC HGB HCT MCV PLT Adult M 4.1-10.9 4.20-6.30 12.0-18.0 37.0-51.0 80-97 140-440 Adult F 4.1-10.9 4.04-5.48 12.0-18.0 37.0-51.0 80-97 140-440 0- 1 Yr 5.0-20.0 3.9-5.9 15-18 MV: 44 MV: 91 MV: 277 2-9 Yr. 6.0-17.0 3.8-5.4 11-13 MV: 37 MV: 78 MV: 300 10 Yrs. 5.0-13.0 3.8-5.4 12-15 MV: 39 MV: 80 MV: 250 NOTE: * FOR ADULT BLACK MALES AND FEMALES, NORMAL WBC IS 2.9-7.7 K/ML * FOR ADULT BLACK MALES AND FEMALES, NORMAL RBC,HGB, AND HCT IS 5% LESS SOURCE FOR DATA: DAMARIS DYN 1800 OPERATION MANUAL( AUTOMATED BLOOD COUNTS AND DIFF.) APPENDIX B-3 MCHC 33.7 g/dL 31.0-36.0 [facility] CLASSIFICATION CHOLESTEROL FO R ADULTS CHILDREN/ADOLESCENTS* DESIRABLE: <200 MG/DL <170 MG/DL BORDER-LINE HIGH RISK: 200-239 MG/DL 170-199 MG/DL HIGH RISK: >240 MG/DL >200 MG/DL CLASS. FOR PRIMARY LDL CHOL PREVENTION: LDL CHOL-CHILD/ADOLESCENTS* DESIRABLE: <130 MG/DL <110 MG/DL BORDERLINE-HIGH RISK: 130-159 MG/DL 110-129 MG/DL HIGH RISK: >160 MG/DL >130 MG/DL *CHILDREN AND ADOLESCENTS REPRESENTS INDIVIDUALA AGED 2-19 YEARS EXCLUSIVE. CHRONIC KIDNEY DISEASE STAGING PER NKF: MALE [...] mL/min Normal 80 and above >32 mL/min NormalNORMAL RANGES Age WBC RBC HGB HCT MCV PLT Adult M 4.1-10.9 4.20-6.30 12.0-18.0 37.0-51.0 80-97 140-440 Adult F 4.1-10.9 4.04-5.48 12.0-18.0 37.0-51.0 80-97 140-440 0- 1 Yr 5.0-20.0 3.9-5.9 15-18 MV: 44 MV: 91 MV: 277 2-9 Yr. 6.0-17.0 3.8-5.4 11-13 MV: 37 MV: 78 MV: 300 10 Yrs. 5.0-13.0 3.8-5.4 12-15 MV: 39 MV: 80 MV: 250 NOTE: * FOR ADULT BLACK MALES AND FEMALES, NORMAL WBC IS 2.9-7.7 K/ML * FOR ADULT BLACK MALES AND FEMALES, NORMAL RBC,HGB, AND HCT IS 5% LESS SOURCE FOR DATA: DAMARIS DYN 1800 OPERATION MANUAL( AUTOMATED BLOOD COUNTS AND DIFF.) APPENDIX B-3 MCH 30.8 pg 26.0-32.0 [facility] CLASSIFICATION CHOLESTEROL FO R ADULTS CHILDREN/ADOLESCENTS* DESIRABLE: <200 MG/DL <170 MG/DL BORDER-LINE HIGH RISK: 200-239 MG/DL 170-199 MG/DL HIGH RISK: >240 MG/DL >200 MG/DL CLASS. FOR PRIMARY LDL CHOL PREVENTION: LDL CHOL-CHILD/ADOLESCENTS* DESIRABLE: <130 MG/DL <110 MG/DL BORDERLINE-HIGH RISK: 130-159 MG/DL 110-129 MG/DL HIGH RISK: >160 MG/DL >130 MG/DL *CHILDREN AND ADOLESCENTS REPRESENTS INDIVIDUALA AGED 2-19 YEARS EXCLUSIVE. CHRONIC KIDNEY DISEASE STAGING PER NKF: MALE [...] mL/min Normal 80 and above >32 mL/min NormalNORMAL RANGES Age WBC RBC HGB HCT MCV PLT Adult M 4.1-10.9 4.20-6.30 12.0-18.0 37.0-51.0 80-97 140-440 Adult F 4.1-10.9 4.04-5.48 12.0-18.0 37.0-51.0 80-97 140-440 0- 1 Yr 5.0-20.0 3.9-5.9 15-18 MV: 44 MV: 91 MV: 277 2-9 Yr. 6.0-17.0 3.8-5.4 11-13 MV: 37 MV: 78 MV: 300 10 Yrs. 5.0-13.0 3.8-5.4 12-15 MV: 39 MV: 80 MV: 250 NOTE: * FOR ADULT BLACK MALES AND FEMALES, NORMAL WBC IS 2.9-7.7 K/ML * FOR ADULT BLACK MALES AND FEMALES, NORMAL RBC,HGB, AND HCT IS 5% LESS SOURCE FOR DATA: Yattos 1800 OPERATION MANUAL( AUTOMATED BLOOD COUNTS AND DIFF.) APPENDIX B-3 RDW-CV 13.2 % 11.5-14.5 [facility] ([facility] CLASSIFICATION CHOLESTEROL FO R ADULTS CHILDREN/ADOLESCENTS* DESIRABLE: <200 MG/DL <170 MG/DL BORDER-LINE HIGH RISK: 200-239 MG/DL 170-199 MG/DL HIGH RISK: >240 MG/DL >200 MG/DL CLASS. FOR PRIMARY LDL CHOL PREVENTION: LDL CHOL-CHILD/ADOLESCENTS* DESIRABLE: <130 MG/DL <110 MG/DL BORDERLINE-HIGH RISK: 130-159 MG/DL 110-129 MG/DL HIGH RISK: >160 MG/DL >130 MG/DL *CHILDREN AND ADOLESCENTS REPRESENTS INDIVIDUALA AGED 2-19 YEARS EXCLUSIVE. CHRONIC KIDNEY DISEASE STAGING PER NKF: MALE [...] mL/min Normal 80 and above >32 mL/min NormalNORMAL RANGES Age WBC RBC HGB HCT MCV PLT Adult M 4.1-10.9 4.20-6.30 12.0-18.0 37.0-51.0 80-97 140-440 Adult F 4.1-10.9 4.04-5.48 12.0-18.0 37.0-51.0 80- 140-440 0- 1 Yr 5.0-20.0 3.9-5.9 15-18 MV: 44 MV: 91 MV: 277 2-9 Yr. 6.0-17.0 3.8-5.4 11-13 MV: 37 MV: 78 MV: 300 10 Yrs. 5.0-13.0 3.8-5.4 12-15 MV: 39 MV: 80 MV: 250 NOTE: * FOR ADULT BLACK MALES AND FEMALES, NORMAL WBC IS 2.9-7.7 K/ML * FOR ADULT BLACK MALES AND FEMALES, NORMAL RBC,HGB, AND HCT IS 5% LESS SOURCE FOR DATA: Lamoda DYN 1800 OPERATION MANUAL( AUTOMATED BLOOD COUNTS AND DIFF.) APPENDIX B-3 Lym% 22.2 % 10.0-58.5 [facility] ([facility] CLASSIFICATION CHOLESTEROL FO R ADULTS CHILDREN/ADOLESCENTS* DESIRABLE: <200 MG/DL <170 MG/DL BORDER-LINE HIGH RISK: 200-239 MG/DL 170-199 MG/DL HIGH RISK: >240 MG/DL >200 MG/DL CLASS. FOR PRIMARY LDL CHOL PREVENTION: LDL CHOL-CHILD/ADOLESCENTS* DESIRABLE: <130 MG/DL <110 MG/DL BORDERLINE-HIGH RISK: 130-159 MG/DL 110-129 MG/DL HIGH RISK: >160 MG/DL >130 MG/DL *CHILDREN AND ADOLESCENTS REPRESENTS INDIVIDUALA AGED 2-19 YEARS EXCLUSIVE. CHRONIC KIDNEY DISEASE STAGING PER NKF: MALE [...] mL/min Normal 80 and above >32 mL/min NormalNORMAL RANGES Age WBC RBC HGB HCT MCV PLT Adult M 4.1-10.9 4.20-6.30 12.0-18.0 37.0-51.0 80-97 140-440 Adult F 4.1-10.9 4.04-5.48 12.0-18.0 37.0-51.0 80-97 140-440 0- 1 Yr 5.0-20.0 3.9-5.9 15-18 MV: 44 MV: 91 MV: 277 2-9 Yr. 6.0-17.0 3.8-5.4 11-13 MV: 37 MV: 78 MV: 300 10 Yrs. 5.0-13.0 3.8-5.4 12-15 MV: 39 MV: 80 MV: 250 NOTE: * FOR ADULT BLACK MALES AND FEMALES, NORMAL WBC IS 2.9-7.7 K/ML * FOR ADULT BLACK MALES AND FEMALES, NORMAL RBC,HGB, AND HCT IS 5% LESS SOURCE FOR DATA: Yattos 1800 OPERATION MANUAL( AUTOMATED BLOOD COUNTS AND DIFF.) APPENDIX B-3 Lym# 1.9 10E3/uL 0.6-4.1 [facility] CLASSIFICATION CHOLESTEROL FO R ADULTS CHILDREN/ADOLESCENTS* DESIRABLE: <200 MG/DL <170 MG/DL BORDER-LINE HIGH RISK: 200-239 MG/DL 170-199 MG/DL HIGH RISK: >240 MG/DL >200 MG/DL CLASS. FOR PRIMARY LDL CHOL PREVENTION: LDL CHOL-CHILD/ADOLESCENTS* DESIRABLE: <130 MG/DL <110 MG/DL BORDERLINE-HIGH RISK: 130-159 MG/DL 110-129 MG/DL HIGH RISK: >160 MG/DL >130 MG/DL *CHILDREN AND ADOLESCENTS REPRESENTS INDIVIDUALA AGED 2-19 YEARS EXCLUSIVE. CHRONIC KIDNEY DISEASE STAGING PER NKF: MALE [...] mL/min Normal 80 and above >32 mL/min NormalNORMAL RANGES Age WBC RBC HGB HCT MCV PLT Adult M 4.1-10.9 4.20-6.30 12.0-18.0 37.0-51.0 80-97 140-440 Adult F 4.1-10.9 4.04-5.48 12.0-18.0 37.0-51.0 80-97 140-440 0- 1 Yr 5.0-20.0 3.9-5.9 15-18 MV: 44 MV: 91 MV: 277 2-9 Yr. 6.0-17.0 3.8-5.4 11-13 MV: 37 MV: 78 MV: 300 10 Yrs. 5.0-13.0 3.8-5.4 12-15 MV: 39 MV: 80 MV: 250 NOTE: * FOR ADULT BLACK MALES AND FEMALES, NORMAL WBC IS 2.9-7.7 K/ML * FOR ADULT BLACK MALES AND FEMALES, NORMAL RBC,HGB, AND HCT IS 5% LESS SOURCE FOR DATA: DAMARIS DYN 1800 OPERATION MANUAL( AUTOMATED BLOOD COUNTS AND DIFF.) APPENDIX B-3 MXD% 9.0 % 0.1-24.0 [facility] ([facility] CLASSIFICATION CHOLESTEROL FO R ADULTS CHILDREN/ADOLESCENTS* DESIRABLE: <200 MG/DL <170 MG/DL BORDER-LINE HIGH RISK: 200-239 MG/DL 170-199 MG/DL HIGH RISK: >240 MG/DL >200 MG/DL CLASS. FOR PRIMARY LDL CHOL PREVENTION: LDL CHOL-CHILD/ADOLESCENTS* DESIRABLE: <130 MG/DL <110 MG/DL BORDERLINE-HIGH RISK: 130-159 MG/DL 110-129 MG/DL HIGH RISK: >160 MG/DL >130 MG/DL *CHILDREN AND ADOLESCENTS REPRESENTS INDIVIDUALA AGED 2-19 YEARS EXCLUSIVE. CHRONIC KIDNEY DISEASE STAGING PER NKF: MALE [...] mL/min Normal 80 and above >32 mL/min NormalNORMAL RANGES Age WBC RBC HGB HCT MCV PLT Adult M 4.1-10.9 4.20-6.30 12.0-18.0 37.0-51.0 80-97 140-440 Adult F 4.1-10.9 4.04-5.48 12.0-18.0 37.0-51.0 80-97 140-440 0- 1 Yr 5.0-20.0 3.9-5.9 15-18 MV: 44 MV: 91 MV: 277 2-9 Yr. 6.0-17.0 3.8-5.4 11-13 MV: 37 MV: 78 MV: 300 10 Yrs. 5.0-13.0 3.8-5.4 12-15 MV: 39 MV: 80 MV: 250 NOTE: * FOR ADULT BLACK MALES AND FEMALES, NORMAL WBC IS 2.9-7.7 K/ML * FOR ADULT BLACK MALES AND FEMALES, NORMAL RBC,HGB, AND HCT IS 5% LESS SOURCE FOR DATA: Yattos 1800 OPERATION MANUAL( AUTOMATED BLOOD COUNTS AND DIFF.) APPENDIX B-3 Neut% 68.8 % 37.0-92.0 [facility] ([facility] CLASSIFICATION CHOLESTEROL FO R ADULTS CHILDREN/ADOLESCENTS* DESIRABLE: <200 MG/DL <170 MG/DL BORDER-LINE HIGH RISK: 200-239 MG/DL 170-199 MG/DL HIGH RISK: >240 MG/DL >200 MG/DL CLASS. FOR PRIMARY LDL CHOL PREVENTION: LDL CHOL-CHILD/ADOLESCENTS* DESIRABLE: <130 MG/DL <110 MG/DL BORDERLINE-HIGH RISK: 130-159 MG/DL 110-129 MG/DL HIGH RISK: >160 MG/DL >130 MG/DL *CHILDREN AND ADOLESCENTS REPRESENTS INDIVIDUALA AGED 2-19 YEARS EXCLUSIVE. CHRONIC KIDNEY DISEASE STAGING PER NKF: MALE [...] mL/min Normal 80 and above >32 mL/min NormalNORMAL RANGES Age WBC RBC HGB HCT MCV PLT Adult M 4.1-10.9 4.20-6.30 12.0-18.0 37.0-51.0 80-97 140-440 Adult F 4.1-10.9 4.04-5.48 12.0-18.0 37.0-51.0 80-97 140-440 0- 1 Yr 5.0-20.0 3.9-5.9 15-18 MV: 44 MV: 91 MV: 277 2-9 Yr. 6.0-17.0 3.8-5.4 11-13 MV: 37 MV: 78 MV: 300 10 Yrs. 5.0-13.0 3.8-5.4 12-15 MV: 39 MV: 80 MV: 250 NOTE: * FOR ADULT BLACK MALES AND FEMALES, NORMAL WBC IS 2.9-7.7 K/ML * FOR ADULT BLACK MALES AND FEMALES, NORMAL RBC,HGB, AND HCT IS 5% LESS SOURCE FOR DATA: Lamoda DYN 1800 OPERATION MANUAL( AUTOMATED BLOOD COUNTS AND DIFF.) APPENDIX B-3 MXD# 0.8 10E3/uL 0.0-1.8 [facility] ([facility] CLASSIFICATION CHOLESTEROL FO R ADULTS CHILDREN/ADOLESCENTS* DESIRABLE: <200 MG/DL <170 MG/DL BORDER-LINE HIGH RISK: 200-239 MG/DL 170-199 MG/DL HIGH RISK: >240 MG/DL >200 MG/DL CLASS. FOR PRIMARY LDL CHOL PREVENTION: LDL CHOL-CHILD/ADOLESCENTS* DESIRABLE: <130 MG/DL <110 MG/DL BORDERLINE-HIGH RISK: 130-159 MG/DL 110-129 MG/DL HIGH RISK: >160 MG/DL >130 MG/DL *CHILDREN AND ADOLESCENTS REPRESENTS INDIVIDUALA AGED 2-19 YEARS EXCLUSIVE. CHRONIC KIDNEY DISEASE STAGING PER NKF: MALE [...] mL/min Normal 80 and above >32 mL/min NormalNORMAL RANGES Age WBC RBC HGB HCT MCV PLT Adult M 4.1-10.9 4.20-6.30 12.0-18.0 37.0-51.0 80-97 140-440 Adult F 4.1-10.9 4.04-5.48 12.0-18.0 37.0-51.0 80-97 140-440 0- 1 Yr 5.0-20.0 3.9-5.9 15-18 MV: 44 MV: 91 MV: 277 2-9 Yr. 6.0-17.0 3.8-5.4 11-13 MV: 37 MV: 78 MV: 300 10 Yrs. 5.0-13.0 3.8-5.4 12-15 MV: 39 MV: 80 MV: 250 NOTE: * FOR ADULT BLACK MALES AND FEMALES, NORMAL WBC IS 2.9-7.7 K/ML * FOR ADULT BLACK MALES AND FEMALES, NORMAL RBC,HGB, AND HCT IS 5% LESS SOURCE FOR DATA: DAMARIS DYN 1800 OPERATION MANUAL( AUTOMATED BLOOD COUNTS AND DIFF.) APPENDIX B-3 MPV 11.3 fL 9.0-13.0 [facility] CLASSIFICATION CHOLESTEROL FO R ADULTS CHILDREN/ADOLESCENTS* DESIRABLE: <200 MG/DL <170 MG/DL BORDER-LINE HIGH RISK: 200-239 MG/DL 170-199 MG/DL HIGH RISK: >240 MG/DL >200 MG/DL CLASS. FOR PRIMARY LDL CHOL PREVENTION: LDL CHOL-CHILD/ADOLESCENTS* DESIRABLE: <130 MG/DL <110 MG/DL BORDERLINE-HIGH RISK: 130-159 MG/DL 110-129 MG/DL HIGH RISK: >160 MG/DL >130 MG/DL *CHILDREN AND ADOLESCENTS REPRESENTS INDIVIDUALA AGED 2-19 YEARS EXCLUSIVE. CHRONIC KIDNEY DISEASE STAGING PER NKF: MALE [...] mL/min Normal 80 and above >32 mL/min NormalNORMAL RANGES Age WBC RBC HGB HCT MCV PLT Adult M 4.1-10.9 4.20-6.30 12.0-18.0 37.0-51.0 80-97 140-440 Adult F 4.1-10.9 4.04-5.48 12.0-18.0 37.0-51.0 80-97 140-440 0- 1 Yr 5.0-20.0 3.9-5.9 15-18 MV: 44 MV: 91 MV: 277 2-9 Yr. 6.0-17.0 3.8-5.4 11-13 MV: 37 MV: 78 MV: 300 10 Yrs. 5.0-13.0 3.8-5.4 12-15 MV: 39 MV: 80 MV: 250 NOTE: * FOR ADULT BLACK MALES AND FEMALES, NORMAL WBC IS 2.9-7.7 K/ML * FOR ADULT BLACK MALES AND FEMALES, NORMAL RBC,HGB, AND HCT IS 5% LESS SOURCE FOR DATA: Yattos 1800 OPERATION MANUAL( AUTOMATED BLOOD COUNTS AND DIFF.) APPENDIX B-3 Neut# 5.7 % 2.0-7.8 [facility] CLASSIFICATION CHOLESTEROL FO R ADULTS CHILDREN/ADOLESCENTS* DESIRABLE: <200 MG/DL <170 MG/DL BORDER-LINE HIGH RISK: 200-239 MG/DL 170-199 MG/DL HIGH RISK: >240 MG/DL >200 MG/DL CLASS. FOR PRIMARY LDL CHOL PREVENTION: LDL CHOL-CHILD/ADOLESCENTS* DESIRABLE: <130 MG/DL <110 MG/DL BORDERLINE-HIGH RISK: 130-159 MG/DL 110-129 MG/DL HIGH RISK: >160 MG/DL >130 MG/DL *CHILDREN AND ADOLESCENTS REPRESENTS INDIVIDUALA AGED 2-19 YEARS EXCLUSIVE. CHRONIC KIDNEY DISEASE STAGING PER NKF: MALE [...] mL/min Normal 80 and above >32 mL/min NormalNORMAL RANGES Age WBC RBC HGB HCT MCV PLT Adult M 4.1-10.9 4.20-6.30 12.0-18.0 37.0-51.0 80-97 140-440 Adult F 4.1-10.9 4.04-5.48 12.0-18.0 37.0-51.0 80-97 140-440 0- 1 Yr 5.0-20.0 3.9-5.9 15-18 MV: 44 MV: 91 MV: 277 2-9 Yr. 6.0-17.0 3.8-5.4 11-13 MV: 37 MV: 78 MV: 300 10 Yrs. 5.0-13.0 3.8-5.4 12-15 MV: 39 MV: 80 MV: 250 NOTE: * FOR ADULT BLACK MALES AND FEMALES, NORMAL WBC IS 2.9-7.7 K/ML * FOR ADULT BLACK MALES AND FEMALES, NORMAL RBC,HGB, AND HCT IS 5% LESS SOURCE FOR DATA: DAMARIS DYN 1800 OPERATION MANUAL( AUTOMATED BLOOD COUNTS AND DIFF.) APPENDIX B-3 ID Date Data Source [id number] 09/17/2019 05:53:00 PM EDT [facility] Name Value Range Interpretation Code Description Data Su rce(s) Supporting Document(s) Hemoglobin A1c/Hemoglobin.total in Blood 8.8 % 4.4 - 6.1 H [facility] {A1]{HB] ID Date Data Source [id number] 06/20/2019 09:17:00 AM EST [facility] ([facility] Name Value Range Interpretation Code Description Data Su rce(s) Supporting Document(s) Hemoglobin A1c/Hemoglobin.total in Blood 9.5 % 4.4-6.1 Above high normal [facility] ([facility] {A1] {HB] ID Date Data Source [id number] 06/20/2019 09:17:00 AM EST [facility] ([facility] Name Value Range Interpretation Code Description Data Su rce(s) Supporting Document(s) Color Laboratory test result [facility] ([facility] CLASSIFICATION CHOLESTEROL FO R ADULTS CHILDREN/ADOLESCENTS* DESIRABLE: <200 MG/DL <170 MG/DL BORDER-LINE HIGH RISK: 200-239 MG/DL 170-199 MG/DL HIGH RISK: >240 MG/DL >200 MG/DL CLASS. FOR PRIMARY LDL CHOL PREVENTION: LDL CHOL-CHILD/ADOLESCENTS* DESIRABLE: <130 MG/DL <110 MG/DL BORDERLINE-HIGH RISK: 130-159 MG/DL 110-129 MG/DL HIGH RISK: >160 MG/DL >130 MG/DL *CHILDREN AND ADOLESCENTS REPRESENTS INDIVIDUALA AGED 2-19 YEARS EXCLUSIVE. CHRONIC KIDNEY DISEASE STAGING PER NKF: MALE [...] mL/min Normal 80 and above >32 mL/min NormalNORMAL RANGES Age WBC RBC HGB HCT MCV PLT Adult M 4.1-10.9 4.20-6.30 12.0-18.0 37.0-51.0 80-97 140-440 Adult F 4.1-10.9 4.04-5.48 12.0-18.0 37.0-51.0 80-97 140-440 0- 1 Yr 5.0-20.0 3.9-5.9 15-18 MV: 44 MV: 91 MV: 277 2-9 Yr. 6.0-17.0 3.8-5.4 11-13 MV: 37 MV: 78 MV: 300 10 Yrs. 5.0-13.0 3.8-5.4 12-15 MV: 39 MV: 80 MV: 250 NOTE: * FOR ADULT BLACK MALES AND FEMALES, NORMAL WBC IS 2.9-7.7 K/ML * FOR ADULT BLACK MALES AND FEMALES, NORMAL RBC,HGB, AND HCT IS 5% LESS SOURCE FOR DATA: DAMARIS DYN 1800 OPERATION MANUAL( AUTOMATED BLOOD COUNTS AND DIFF.) APPENDIX B-3 [facility] Laboratory test result [facility] ([facility] CLASSIFICATION CHOLESTEROL FO R ADULTS CHILDREN/ADOLESCENTS* DESIRABLE: <200 MG/DL <170 MG/DL BORDER-LINE HIGH RISK: 200-239 MG/DL 170-199 MG/DL HIGH RISK: >240 MG/DL >200 MG/DL CLASS. FOR PRIMARY LDL CHOL PREVENTION: LDL CHOL-CHILD/ADOLESCENTS* DESIRABLE: <130 MG/DL <110 MG/DL BORDERLINE-HIGH RISK: 130-159 MG/DL 110-129 MG/DL HIGH RISK: >160 MG/DL >130 MG/DL *CHILDREN AND ADOLESCENTS REPRESENTS INDIVIDUALA AGED 2-19 YEARS EXCLUSIVE. CHRONIC KIDNEY DISEASE STAGING PER NKF: MALE [...] mL/min Normal 80 and above >32 mL/min NormalNORMAL RANGES Age WBC RBC HGB HCT MCV PLT Adult M 4.1-10.9 4.20-6.30 12.0-18.0 37.0-51.0 80-97 140-440 Adult F 4.1-10.9 4.04-5.48 12.0-18.0 37.0-51.0 80-97 140-440 0- 1 Yr 5.0-20.0 3.9-5.9 15-18 MV: 44 MV: 91 MV: 277 2-9 Yr. 6.0-17.0 3.8-5.4 11-13 MV: 37 MV: 78 MV: 300 10 Yrs. 5.0-13.0 3.8-5.4 12-15 MV: 39 MV: 80 MV: 250 NOTE: * FOR ADULT BLACK MALES AND FEMALES, NORMAL WBC IS 2.9-7.7 K/ML * FOR ADULT BLACK MALES AND FEMALES, NORMAL RBC,HGB, AND HCT IS 5% LESS SOURCE FOR DATA: DAMARIS DYN 1800 OPERATION MANUAL( AUTOMATED BLOOD COUNTS AND DIFF.) APPENDIX B-3 Glucose-Ua Laboratory test result [facility] ([facility] CLASSIFICATION CHOLESTEROL FO R ADULTS CHILDREN/ADOLESCENTS* DESIRABLE: <200 MG/DL <170 MG/DL BORDER-LINE HIGH RISK: 200-239 MG/DL 170-199 MG/DL HIGH RISK: >240 MG/DL >200 MG/DL CLASS. FOR PRIMARY LDL CHOL PREVENTION: LDL CHOL-CHILD/ADOLESCENTS* DESIRABLE: <130 MG/DL <110 MG/DL BORDERLINE-HIGH RISK: 130-159 MG/DL 110-129 MG/DL HIGH RISK: >160 MG/DL >130 MG/DL *CHILDREN AND ADOLESCENTS REPRESENTS INDIVIDUALA AGED 2-19 YEARS EXCLUSIVE. CHRONIC KIDNEY DISEASE STAGING PER NKF: MALE [...] mL/min Normal 80 and above >32 mL/min NormalNORMAL RANGES Age WBC RBC HGB HCT MCV PLT Adult M 4.1-10.9 4.20-6.30 12.0-18.0 37.0-51.0 80-97 140-440 Adult F 4.1-10.9 4.04-5.48 12.0-18.0 37.0-51.0 80-97 140-440 0- 1 Yr 5.0-20.0 3.9-5.9 15-18 MV: 44 MV: 91 MV: 277 2-9 Yr. 6.0-17.0 3.8-5.4 11-13 MV: 37 MV: 78 MV: 300 10 Yrs. 5.0-13.0 3.8-5.4 12-15 MV: 39 MV: 80 MV: 250 NOTE: * FOR ADULT BLACK MALES AND FEMALES, NORMAL WBC IS 2.9-7.7 K/ML * FOR ADULT BLACK MALES AND FEMALES, NORMAL RBC,HGB, AND HCT IS 5% LESS SOURCE FOR DATA: DAMARIS DYN 1800 OPERATION MANUAL( AUTOMATED BLOOD COUNTS AND DIFF.) APPENDIX B-3 Ketone Laboratory [facility] ([facility] CLASSIFICATION CHOLESTEROL FO R ADULTS CHILDREN/ADOLESCENTS* DESIRABLE: <200 MG/DL <170 MG/DL BORDER-LINE HIGH RISK: 200-239 MG/DL 170-199 MG/DL HIGH RISK: >240 MG/DL >200 MG/DL CLASS. FOR PRIMARY LDL CHOL PREVENTION: LDL CHOL-CHILD/ADOLESCENTS* DESIRABLE: <130 MG/DL <110 MG/DL BORDERLINE-HIGH RISK: 130-159 MG/DL 110-129 MG/DL HIGH RISK: >160 MG/DL >130 MG/DL *CHILDREN AND ADOLESCENTS REPRESENTS INDIVIDUALA AGED 2-19 YEARS EXCLUSIVE. CHRONIC KIDNEY DISEASE STAGING PER NKF: MALE [...] mL/min Normal 80 and above >32 mL/min NormalNORMAL RANGES Age WBC RBC HGB HCT MCV PLT Adult M 4.1-10.9 4.20-6.30 12.0-18.0 37.0-51.0 80-97 140-440 Adult F 4.1-10.9 4.04-5.48 12.0-18.0 37.0-51.0 80-97 140-440 0- 1 Yr 5.0-20.0 3.9-5.9 15-18 MV: 44 MV: 91 MV: 277 2-9 Yr. 6.0-17.0 3.8-5.4 11-13 MV: 37 MV: 78 MV: 300 10 Yrs. 5.0-13.0 3.8-5.4 12-15 MV: 39 MV: 80 MV: 250 NOTE: * FOR ADULT BLACK MALES AND FEMALES, NORMAL WBC IS 2.9-7.7 K/ML * FOR ADULT BLACK MALES AND FEMALES, NORMAL RBC,HGB, AND HCT IS 5% LESS SOURCE FOR DATA: Yattos 1800 OPERATION MANUAL( AUTOMATED BLOOD COUNTS AND DIFF.) APPENDIX B-3 Bilirubin,Urine Laboratory test result [facility] ([facility] CLASSIFICATION CHOLESTEROL FO R ADULTS CHILDREN/ADOLESCENTS* DESIRABLE: <200 MG/DL <170 MG/DL BORDER-LINE HIGH RISK: 200-239 MG/DL 170-199 MG/DL HIGH RISK: >240 MG/DL >200 MG/DL CLASS. FOR PRIMARY LDL CHOL PREVENTION: LDL CHOL-CHILD/ADOLESCENTS* DESIRABLE: <130 MG/DL <110 MG/DL BORDERLINE-HIGH RISK: 130-159 MG/DL 110-129 MG/DL HIGH RISK: >160 MG/DL >130 MG/DL *CHILDREN AND ADOLESCENTS REPRESENTS INDIVIDUALA AGED 2-19 YEARS EXCLUSIVE. CHRONIC KIDNEY DISEASE STAGING PER NKF: MALE [...] mL/min Normal 80 and above >32 mL/min NormalNORMAL RANGES Age WBC RBC HGB HCT MCV PLT Adult M 4.1-10.9 4.20-6.30 12.0-18.0 37.0-51.0 80-97 140-440 Adult F 4.1-10.9 4.04-5.48 12.0-18.0 37.0-51.0 80-97 140-440 0- 1 Yr 5.0-20.0 3.9-5.9 15-18 MV: 44 MV: 91 MV: 277 2-9 Yr. 6.0-17.0 3.8-5.4 11-13 MV: 37 MV: 78 MV: 300 10 Yrs. 5.0-13.0 3.8-5.4 12-15 MV: 39 MV: 80 MV: 250 NOTE: * FOR ADULT BLACK MALES AND FEMALES, NORMAL WBC IS 2.9-7.7 K/ML * FOR ADULT BLACK MALES AND FEMALES, NORMAL RBC,HGB, AND HCT IS 5% LESS SOURCE FOR DATA: Lamoda DYN 1800 OPERATION MANUAL( AUTOMATED BLOOD COUNTS AND DIFF.) APPENDIX B-3 Blood - Ua Laboratory test result [facility] ([facility] CLASSIFICATION CHOLESTEROL FO R ADULTS CHILDREN/ADOLESCENTS* DESIRABLE: <200 MG/DL <170 MG/DL BORDER-LINE HIGH RISK: 200-239 MG/DL 170-199 MG/DL HIGH RISK: >240 MG/DL >200 MG/DL CLASS. FOR PRIMARY LDL CHOL PREVENTION: LDL CHOL-CHILD/ADOLESCENTS* DESIRABLE: <130 MG/DL <110 MG/DL BORDERLINE-HIGH RISK: 130-159 MG/DL 110-129 MG/DL HIGH RISK: >160 MG/DL >130 MG/DL *CHILDREN AND ADOLESCENTS REPRESENTS INDIVIDUALA AGED 2-19 YEARS EXCLUSIVE. CHRONIC KIDNEY DISEASE STAGING PER NKF: MALE [...] mL/min Normal 80 and above >32 mL/min NormalNORMAL RANGES Age WBC RBC HGB HCT MCV PLT Adult M 4.1-10.9 4.20-6.30 12.0-18.0 37.0-51.0 80-97 140-440 Adult F 4.1-10.9 4.04-5.48 12.0-18.0 37.0-51.0 80-97 140-440 0- 1 Yr 5.0-20.0 3.9-5.9 15-18 MV: 44 MV: 91 MV: 277 2-9 Yr. 6.0-17.0 3.8-5.4 11-13 MV: 37 MV: 78 MV: 300 10 Yrs. 5.0-13.0 3.8-5.4 12-15 MV: 39 MV: 80 MV: 250 NOTE: * FOR ADULT BLACK MALES AND FEMALES, NORMAL WBC IS 2.9-7.7 K/ML * FOR ADULT BLACK MALES AND FEMALES, NORMAL RBC,HGB, AND HCT IS 5% LESS SOURCE FOR DATA: Yattos 1800 OPERATION MANUAL( AUTOMATED BLOOD COUNTS AND DIFF.) APPENDIX B-3 pH 6.0 # 5.0-8.0 [facility] CLASSIFICATION CHOLESTEROL FO R ADULTS CHILDREN/ADOLESCENTS* DESIRABLE: <200 MG/DL <170 MG/DL BORDER-LINE HIGH RISK: 200-239 MG/DL 170-199 MG/DL HIGH RISK: >240 MG/DL >200 MG/DL CLASS. FOR PRIMARY LDL CHOL PREVENTION: LDL CHOL-CHILD/ADOLESCENTS* DESIRABLE: <130 MG/DL <110 MG/DL BORDERLINE-HIGH RISK: 130-159 MG/DL 110-129 MG/DL HIGH RISK: >160 MG/DL >130 MG/DL *CHILDREN AND ADOLESCENTS REPRESENTS INDIVIDUALA AGED 2-19 YEARS EXCLUSIVE. CHRONIC KIDNEY DISEASE STAGING PER NKF: MALE [...] mL/min Normal 80 and above >32 mL/min NormalNORMAL RANGES Age WBC RBC HGB HCT MCV PLT Adult M 4.1-10.9 4.20-6.30 12.0-18.0 37.0-51.0 80-97 140-440 Adult F 4.1-10.9 4.04-5.48 12.0-18.0 37.0-51.0 80-97 140-440 0- 1 Yr 5.0-20.0 3.9-5.9 15-18 MV: 44 MV: 91 MV: 277 2-9 Yr. 6.0-17.0 3.8-5.4 11-13 MV: 37 MV: 78 MV: 300 10 Yrs. 5.0-13.0 3.8-5.4 12-15 MV: 39 MV: 80 MV: 250 NOTE: * FOR ADULT BLACK MALES AND FEMALES, NORMAL WBC IS 2.9-7.7 K/ML * FOR ADULT BLACK MALES AND FEMALES, NORMAL RBC,HGB, AND HCT IS 5% LESS SOURCE FOR DATA: DAMARIS DYN 1800 OPERATION MANUAL( AUTOMATED BLOOD COUNTS AND DIFF.) APPENDIX B-3 Protein Laboratory test result [facility] ([facility] CLASSIFICATION CHOLESTEROL FO R ADULTS CHILDREN/ADOLESCENTS* DESIRABLE: <200 MG/DL <170 MG/DL BORDER-LINE HIGH RISK: 200-239 MG/DL 170-199 MG/DL HIGH RISK: >240 MG/DL >200 MG/DL CLASS. FOR PRIMARY LDL CHOL PREVENTION: LDL CHOL-CHILD/ADOLESCENTS* DESIRABLE: <130 MG/DL <110 MG/DL BORDERLINE-HIGH RISK: 130-159 MG/DL 110-129 MG/DL HIGH RISK: >160 MG/DL >130 MG/DL *CHILDREN AND ADOLESCENTS REPRESENTS INDIVIDUALA AGED 2-19 YEARS EXCLUSIVE. CHRONIC KIDNEY DISEASE STAGING PER NKF: MALE [...] mL/min Normal 80 and above >32 mL/min NormalNORMAL RANGES Age WBC RBC HGB HCT MCV PLT Adult M 4.1-10.9 4.20-6.30 12.0-18.0 37.0-51.0 80-97 140-440 Adult F 4.1-10.9 4.04-5.48 12.0-18.0 37.0-51.0 80-97 140-440 0- 1 Yr 5.0-20.0 3.9-5.9 15-18 MV: 44 MV: 91 MV: 277 2-9 Yr. 6.0-17.0 3.8-5.4 11-13 MV: 37 MV: 78 MV: 300 10 Yrs. 5.0-13.0 3.8-5.4 12-15 MV: 39 MV: 80 MV: 250 NOTE: * FOR ADULT BLACK MALES AND FEMALES, NORMAL WBC IS 2.9-7.7 K/ML * FOR ADULT BLACK MALES AND FEMALES, NORMAL RBC,HGB, AND HCT IS 5% LESS SOURCE FOR DATA: Yattos 1800 OPERATION MANUAL( AUTOMATED BLOOD COUNTS AND DIFF.) APPENDIX B-3 Nitrite Laboratory test result [facility] ([facility] CLASSIFICATION CHOLESTEROL FO R ADULTS CHILDREN/ADOLESCENTS* DESIRABLE: <200 MG/DL <170 MG/DL BORDER-LINE HIGH RISK: 200-239 MG/DL 170-199 MG/DL HIGH RISK: >240 MG/DL >200 MG/DL CLASS. FOR PRIMARY LDL CHOL PREVENTION: LDL CHOL-CHILD/ADOLESCENTS* DESIRABLE: <130 MG/DL <110 MG/DL BORDERLINE-HIGH RISK: 130-159 MG/DL 110-129 MG/DL HIGH RISK: >160 MG/DL >130 MG/DL *CHILDREN AND ADOLESCENTS REPRESENTS INDIVIDUALA AGED 2-19 YEARS EXCLUSIVE. CHRONIC KIDNEY DISEASE STAGING PER NKF: MALE [...] mL/min Normal 80 and above >32 mL/min NormalNORMAL RANGES Age WBC RBC HGB HCT MCV PLT Adult M 4.1-10.9 4.20-6.30 12.0-18.0 37.0-51.0 80-97 140-440 Adult F 4.1-10.9 4.04-5.48 12.0-18.0 37.0-51.0 80-97 140-440 0- 1 Yr 5.0-20.0 3.9-5.9 15-18 MV: 44 MV: 91 MV: 277 2-9 Yr. 6.0-17.0 3.8-5.4 11-13 MV: 37 MV: 78 MV: 300 10 Yrs. 5.0-13.0 3.8-5.4 12-15 MV: 39 MV: 80 MV: 250 NOTE: * FOR ADULT BLACK MALES AND FEMALES, NORMAL WBC IS 2.9-7.7 K/ML * FOR ADULT BLACK MALES AND FEMALES, NORMAL RBC,HGB, AND HCT IS 5% LESS SOURCE FOR DATA: Lamoda DYN 1800 OPERATION MANUAL( AUTOMATED BLOOD COUNTS AND DIFF.) APPENDIX B-3 Urobilinogen 0.2 NA 0.2-1.0 [facility] ([facility] CLASSIFICATION CHOLESTEROL FO R ADULTS CHILDREN/ADOLESCENTS* DESIRABLE: <200 MG/DL <170 MG/DL BORDER-LINE HIGH RISK: 200-239 MG/DL 170-199 MG/DL HIGH RISK: >240 MG/DL >200 MG/DL CLASS. FOR PRIMARY LDL CHOL PREVENTION: LDL CHOL-CHILD/ADOLESCENTS* DESIRABLE: <130 MG/DL <110 MG/DL BORDERLINE-HIGH RISK: 130-159 MG/DL 110-129 MG/DL HIGH RISK: >160 MG/DL >130 MG/DL *CHILDREN AND ADOLESCENTS REPRESENTS INDIVIDUALA AGED 2-19 YEARS EXCLUSIVE. CHRONIC KIDNEY DISEASE STAGING PER NKF: MALE [...] mL/min Normal 80 and above >32 mL/min NormalNORMAL RANGES Age WBC RBC HGB HCT MCV PLT Adult M 4.1-10.9 4.20-6.30 12.0-18.0 37.0-51.0 80-97 140-440 Adult F 4.1-10.9 4.04-5.48 12.0-18.0 37.0-51.0 80-97 140-440 0- 1 Yr 5.0-20.0 3.9-5.9 15-18 MV: 44 MV: 91 MV: 277 2-9 Yr. 6.0-17.0 3.8-5.4 11-13 MV: 37 MV: 78 MV: 300 10 Yrs. 5.0-13.0 3.8-5.4 12-15 MV: 39 MV: 80 MV: 250 NOTE: * FOR ADULT BLACK MALES AND FEMALES, NORMAL WBC IS 2.9-7.7 K/ML * FOR ADULT BLACK MALES AND FEMALES, NORMAL RBC,HGB, AND HCT IS 5% LESS SOURCE FOR DATA: DAMARIS DYN 1800 OPERATION MANUAL( AUTOMATED BLOOD COUNTS AND DIFF.) APPENDIX B-3 Leukocyte Laboratory test result [facility] ([facility] CLASSIFICATION CHOLESTEROL FO R ADULTS CHILDREN/ADOLESCENTS* DESIRABLE: <200 MG/DL <170 MG/DL BORDER-LINE HIGH RISK: 200-239 MG/DL 170-199 MG/DL HIGH RISK: >240 MG/DL >200 MG/DL CLASS. FOR PRIMARY LDL CHOL PREVENTION: LDL CHOL-CHILD/ADOLESCENTS* DESIRABLE: <130 MG/DL <110 MG/DL BORDERLINE-HIGH RISK: 130-159 MG/DL 110-129 MG/DL HIGH RISK: >160 MG/DL >130 MG/DL *CHILDREN AND ADOLESCENTS REPRESENTS INDIVIDUALA AGED 2-19 YEARS EXCLUSIVE. CHRONIC KIDNEY DISEASE STAGING PER NKF: MALE [...] mL/min Normal 80 and above >32 mL/min NormalNORMAL RANGES Age WBC RBC HGB HCT MCV PLT Adult M 4.1-10.9 4.20-6.30 12.0-18.0 37.0-51.0 80-97 140-440 Adult F 4.1-10.9 4.04-5.48 12.0-18.0 37.0-51.0 80-97 140-440 0- 1 Yr 5.0-20.0 3.9-5.9 15-18 MV: 44 MV: 91 MV: 277 2-9 Yr. 6.0-17.0 3.8-5.4 11-13 MV: 37 MV: 78 MV: 300 10 Yrs. 5.0-13.0 3.8-5.4 12-15 MV: 39 MV: 80 MV: 250 NOTE: * FOR ADULT BLACK MALES AND FEMALES, NORMAL WBC IS 2.9-7.7 K/ML * FOR ADULT BLACK MALES AND FEMALES, NORMAL RBC,HGB, AND HCT IS 5% LESS SOURCE FOR DATA: Yattos 1800 OPERATION MANUAL( AUTOMATED BLOOD COUNTS AND DIFF.) APPENDIX B-3 ID Date Data Source [id number] 06/20/2019 09:17:00 [facility] ([facility] Name Value Range Interpretation Code Description Data Su rce(s) Supporting Document(s) Chol 151 mg/dL 0-200 [facility] ([facility] CLASSIFICATION CHOLESTEROL FO R ADULTS CHILDREN/ADOLESCENTS* DESIRABLE: <200 MG/DL <170 MG/DL BORDER-LINE HIGH RISK: 200-239 MG/DL 170-199 MG/DL HIGH RISK: >240 MG/DL >200 MG/DL CLASS. FOR PRIMARY LDL CHOL PREVENTION: LDL CHOL-CHILD/ADOLESCENTS* DESIRABLE: <130 MG/DL <110 MG/DL BORDERLINE-HIGH RISK: 130-159 MG/DL 110-129 MG/DL HIGH RISK: >160 MG/DL >130 MG/DL *CHILDREN AND ADOLESCENTS REPRESENTS INDIVIDUALA AGED 2-19 YEARS EXCLUSIVE. CHRONIC KIDNEY DISEASE STAGING PER NKF: MALE [...] mL/min Normal 80 and above >32 mL/min NormalNORMAL RANGES Age WBC RBC HGB HCT MCV PLT Adult M 4.1-10.9 4.20-6.30 12.0-18.0 37.0-51.0 80-97 140-440 Adult F 4.1-10.9 4.04-5.48 12.0-18.0 37.0-51.0 80-97 140-440 0- 1 Yr 5.0-20.0 3.9-5.9 15-18 MV: 44 MV: 91 MV: 277 2-9 Yr. 6.0-17.0 3.8-5.4 11-13 MV: 37 MV: 78 MV: 300 10 Yrs. 5.0-13.0 3.8-5.4 12-15 MV: 39 MV: 80 MV: 250 NOTE: * FOR ADULT BLACK MALES AND FEMALES, NORMAL WBC IS 2.9-7.7 K/ML * FOR ADULT BLACK MALES AND FEMALES, NORMAL RBC,HGB, AND HCT IS 5% LESS SOURCE FOR DATA: Yattos 1800 OPERATION MANUAL( AUTOMATED BLOOD COUNTS AND DIFF.) APPENDIX B-3 Trig 80 mg/dL 40-200 [facility] CLASSIFICATION CHOLESTEROL FO R ADULTS CHILDREN/ADOLESCENTS* DESIRABLE: <200 MG/DL <170 MG/DL BORDER-LINE HIGH RISK: 200-239 MG/DL 170-199 MG/DL HIGH RISK: >240 MG/DL >200 MG/DL CLASS. FOR PRIMARY LDL CHOL PREVENTION: LDL CHOL-CHILD/ADOLESCENTS* DESIRABLE: <130 MG/DL <110 MG/DL BORDERLINE-HIGH RISK: 130-159 MG/DL 110-129 MG/DL HIGH RISK: >160 MG/DL >130 MG/DL *CHILDREN AND ADOLESCENTS REPRESENTS INDIVIDUALA AGED 2-19 YEARS EXCLUSIVE. CHRONIC KIDNEY DISEASE STAGING PER NKF: MALE [...] mL/min Normal 80 and above >32 mL/min NormalNORMAL RANGES Age WBC RBC HGB HCT MCV PLT Adult M 4.1-10.9 4.20-6.30 12.0-18.0 37.0-51.0 80-97 140-440 Adult F 4.1-10.9 4.04-5.48 12.0-18.0 37.0-51.0 80-97 140-440 0- 1 Yr 5.0-20.0 3.9-5.9 15-18 MV: 44 MV: 91 MV: 277 2-9 Yr. 6.0-17.0 3.8-5.4 11-13 MV: 37 MV: 78 MV: 300 10 Yrs. 5.0-13.0 3.8-5.4 12-15 MV: 39 MV: 80 MV: 250 NOTE: * FOR ADULT BLACK MALES AND FEMALES, NORMAL WBC IS 2.9-7.7 K/ML * FOR ADULT BLACK MALES AND FEMALES, NORMAL RBC,HGB, AND HCT IS 5% LESS SOURCE FOR DATA: DAMARIS DYN 1800 OPERATION MANUAL( AUTOMATED BLOOD COUNTS AND DIFF.) APPENDIX B-3 Cho/HDL Ratio 3.2 Calc [facility] ([facility] CLASSIFICATION CHOLESTEROL FO R ADULTS CHILDREN/ADOLESCENTS* DESIRABLE: <200 MG/DL <170 MG/DL BORDER-LINE HIGH RISK: 200-239 MG/DL 170-199 MG/DL HIGH RISK: >240 MG/DL >200 MG/DL CLASS. FOR PRIMARY LDL CHOL PREVENTION: LDL CHOL-CHILD/ADOLESCENTS* DESIRABLE: <130 MG/DL <110 MG/DL BORDERLINE-HIGH RISK: 130-159 MG/DL 110-129 MG/DL HIGH RISK: >160 MG/DL >130 MG/DL *CHILDREN AND ADOLESCENTS REPRESENTS INDIVIDUALA AGED 2-19 YEARS EXCLUSIVE. CHRONIC KIDNEY DISEASE STAGING PER NKF: MALE [...] mL/min Normal 80 and above >32 mL/min NormalNORMAL RANGES Age WBC RBC HGB HCT MCV PLT Adult M 4.1-10.9 4.20-6.30 12.0-18.0 37.0-51.0 80-97 140-440 Adult F 4.1-10.9 4.04-5.48 12.0-18.0 37.0-51.0 80-97 140-440 0- 1 Yr 5.0-20.0 3.9-5.9 15-18 MV: 44 MV: 91 MV: 277 2-9 Yr. 6.0-17.0 3.8-5.4 11-13 MV: 37 MV: 78 MV: 300 10 Yrs. 5.0-13.0 3.8-5.4 12-15 MV: 39 MV: 80 MV: 250 NOTE: * FOR ADULT BLACK MALES AND FEMALES, NORMAL WBC IS 2.9-7.7 K/ML * FOR ADULT BLACK MALES AND FEMALES, NORMAL RBC,HGB, AND HCT IS 5% LESS SOURCE FOR DATA: Lamoda DYN 1800 OPERATION MANUAL( AUTOMATED BLOOD COUNTS AND DIFF.) APPENDIX B-3 Prostate specific Ag [Mass/volume] in Serum or Plasma 47 mg/dL 45-6 5 [facility] CLASSIFICATION CHOLESTEROL FO R ADULTS CHILDREN/ADOLESCENTS* DESIRABLE: <200 MG/DL <170 MG/DL BORDER-LINE HIGH RISK: 200-239 MG/DL 170-199 MG/DL HIGH RISK: >240 MG/DL >200 MG/DL CLASS. FOR PRIMARY LDL CHOL PREVENTION: LDL CHOL-CHILD/ADOLESCENTS* DESIRABLE: <130 MG/DL <110 MG/DL BORDERLINE-HIGH RISK: 130-159 MG/DL 110-129 MG/DL HIGH RISK: >160 MG/DL >130 MG/DL *CHILDREN AND ADOLESCENTS REPRESENTS INDIVIDUALA AGED 2-19 YEARS EXCLUSIVE. CHRONIC KIDNEY DISEASE STAGING PER NKF: MALE [...] mL/min Normal 80 and above >32 mL/min NormalNORMAL RANGES Age WBC RBC HGB HCT MCV PLT Adult M 4.1-10.9 4.20-6.30 12.0-18.0 37.0-51.0 80-97 140-440 Adult F 4.1-10.9 4.04-5.48 12.0-18.0 37.0-51.0 80-97 140-440 0- 1 Yr 5.0-20.0 3.9-5.9 15-18 MV: 44 MV: 91 MV: 277 2-9 Yr. 6.0-17.0 3.8-5.4 11-13 MV: 37 MV: 78 MV: 300 10 Yrs. 5.0-13.0 3.8-5.4 12-15 MV: 39 MV: 80 MV: 250 NOTE: * FOR ADULT BLACK MALES AND FEMALES, NORMAL WBC IS 2.9-7.7 K/ML * FOR ADULT BLACK MALES AND FEMALES, NORMAL RBC,HGB, AND HCT IS 5% LESS SOURCE FOR DATA: Yattos 1800 OPERATION MANUAL( AUTOMATED BLOOD COUNTS AND DIFF.) APPENDIX B-3 LDL_C 88 Calc 75-129 [facility] ([facility] CLASSIFICATION CHOLESTEROL FO R ADULTS CHILDREN/ADOLESCENTS* DESIRABLE: <200 MG/DL <170 MG/DL BORDER-LINE HIGH RISK: 200-239 MG/DL 170-199 MG/DL HIGH RISK: >240 MG/DL >200 MG/DL CLASS. FOR PRIMARY LDL CHOL PREVENTION: LDL CHOL-CHILD/ADOLESCENTS* DESIRABLE: <130 MG/DL <110 MG/DL BORDERLINE-HIGH RISK: 130-159 MG/DL 110-129 MG/DL HIGH RISK: >160 MG/DL >130 MG/DL *CHILDREN AND ADOLESCENTS REPRESENTS INDIVIDUALA AGED 2-19 YEARS EXCLUSIVE. CHRONIC KIDNEY DISEASE STAGING PER NKF: MALE [...] mL/min Normal 80 and above >32 mL/min NormalNORMAL RANGES Age WBC RBC HGB HCT MCV PLT Adult M 4.1-10.9 4.20-6.30 12.0-18.0 37.0-51.0 80-97 140-440 Adult F 4.1-10.9 4.04-5.48 12.0-18.0 37.0-51.0 80-97 140-440 0- 1 Yr 5.0-20.0 3.9-5.9 15-18 MV: 44 MV: 91 MV: 277 2-9 Yr. 6.0-17.0 3.8-5.4 11-13 MV: 37 MV: 78 MV: 300 10 Yrs. 5.0-13.0 3.8-5.4 12-15 MV: 39 MV: 80 MV: 250 NOTE: * FOR ADULT BLACK MALES AND FEMALES, NORMAL WBC IS 2.9-7.7 K/ML * FOR ADULT BLACK MALES AND FEMALES, NORMAL RBC,HGB, AND HCT IS 5% LESS SOURCE FOR DATA: DAMARIS DYN 1800 OPERATION MANUAL( AUTOMATED BLOOD COUNTS AND DIFF.) APPENDIX B-3 ID Date Data Source [id number] 06/20/2019 09:17:00 AM EST [facility] ([facility] Name Value Range Interpretation Code Description Data Su rce(s) Supporting Document(s) Creatine kinase [Enzymatic activity/volume] in Serum or Plasma 145 U/L 26-192 [facility] ([facility] CLASSIFICATION CHOLESTEROL FO R ADULTS CHILDREN/ADOLESCENTS* DESIRABLE: <200 MG/DL <170 MG/DL BORDER-LINE HIGH RISK: 200-239 MG/DL 170-199 MG/DL HIGH RISK: >240 MG/DL >200 MG/DL CLASS. FOR PRIMARY LDL CHOL PREVENTION: LDL CHOL-CHILD/ADOLESCENTS* DESIRABLE: <130 MG/DL <110 MG/DL BORDERLINE-HIGH RISK: 130-159 MG/DL 110-129 MG/DL HIGH RISK: >160 MG/DL >130 MG/DL *CHILDREN AND ADOLESCENTS REPRESENTS INDIVIDUALA AGED 2-19 YEARS EXCLUSIVE. CHRONIC KIDNEY DISEASE STAGING PER NKF: MALE [...] mL/min Normal 80 and above >32 mL/min NormalNORMAL RANGES Age WBC RBC HGB HCT MCV PLT Adult M 4.1-10.9 4.20-6.30 12.0-18.0 37.0-51.0 80-97 140-440 Adult F 4.1-10.9 4.04-5.48 12.0-18.0 37.0-51.0 80-97 140-440 0- 1 Yr 5.0-20.0 3.9-5.9 15-18 MV: 44 MV: 91 MV: 277 2-9 Yr. 6.0-17.0 3.8-5.4 11-13 MV: 37 MV: 78 MV: 300 10 Yrs. 5.0-13.0 3.8-5.4 12-15 MV: 39 MV: 80 MV: 250 NOTE: * FOR ADULT BLACK MALES AND FEMALES, NORMAL WBC IS 2.9-7.7 K/ML * FOR ADULT BLACK MALES AND FEMALES, NORMAL RBC,HGB, AND HCT IS 5% LESS SOURCE FOR DATA: Yattos 1800 OPERATION MANUAL( AUTOMATED BLOOD COUNTS AND DIFF.) APPENDIX B-3 ID Date Data Source [id number] 06/20/2019 09:17:00 AM EST [facility] ([facility] Name Value Range Interpretation Code Description Data Su rce(s) Supporting Document(s) Glu 145 mg/dL 70-110 Above high normal [facility] ([facility] CLASSIFICATION CHOLESTEROL FO R ADULTS CHILDREN/ADOLESCENTS* DESIRABLE: <200 MG/DL <170 MG/DL BORDER-LINE HIGH RISK: 200-239 MG/DL 170-199 MG/DL HIGH RISK: >240 MG/DL >200 MG/DL CLASS. FOR PRIMARY LDL CHOL PREVENTION: LDL CHOL-CHILD/ADOLESCENTS* DESIRABLE: <130 MG/DL <110 MG/DL BORDERLINE-HIGH RISK: 130-159 MG/DL 110-129 MG/DL HIGH RISK: >160 MG/DL >130 MG/DL *CHILDREN AND ADOLESCENTS REPRESENTS INDIVIDUALA AGED 2-19 YEARS EXCLUSIVE. CHRONIC KIDNEY DISEASE STAGING PER NKF: MALE [...] mL/min Normal 80 and above >32 mL/min NormalNORMAL RANGES Age WBC RBC HGB HCT MCV PLT Adult M 4.1-10.9 4.20-6.30 12.0-18.0 37.0-51.0 80-97 140-440 Adult F 4.1-10.9 4.04-5.48 12.0-18.0 37.0-51.0 80-97 140-440 0- 1 Yr 5.0-20.0 3.9-5.9 15-18 MV: 44 MV: 91 MV: 277 2-9 Yr. 6.0-17.0 3.8-5.4 11-13 MV: 37 MV: 78 MV: 300 10 Yrs. 5.0-13.0 3.8-5.4 12-15 MV: 39 MV: 80 MV: 250 NOTE: * FOR ADULT BLACK MALES AND FEMALES, NORMAL WBC IS 2.9-7.7 K/ML * FOR ADULT BLACK MALES AND FEMALES, NORMAL RBC,HGB, AND HCT IS 5% LESS SOURCE FOR DATA: DAMARIS DYN 1800 OPERATION MANUAL( AUTOMATED BLOOD COUNTS AND DIFF.) APPENDIX B-3 BUN 16 mg/dL 8- [facility] CLASSIFICATION CHOLESTEROL FO R ADULTS CHILDREN/ADOLESCENTS* DESIRABLE: <200 MG/DL <170 MG/DL BORDER-LINE HIGH RISK: 200-239 MG/DL 170-199 MG/DL HIGH RISK: >240 MG/DL >200 MG/DL CLASS. FOR PRIMARY LDL CHOL PREVENTION: LDL CHOL-CHILD/ADOLESCENTS* DESIRABLE: <130 MG/DL <110 MG/DL BORDERLINE-HIGH RISK: 130-159 MG/DL 110-129 MG/DL HIGH RISK: >160 MG/DL >130 MG/DL *CHILDREN AND ADOLESCENTS REPRESENTS INDIVIDUALA AGED 2-19 YEARS EXCLUSIVE. CHRONIC KIDNEY DISEASE STAGING PER NKF: MALE [...] mL/min Normal 80 and above >32 mL/min NormalNORMAL RANGES Age WBC RBC HGB HCT MCV PLT Adult M 4.1-10.9 4.20-6.30 12.0-18.0 37.0-51.0 80-97 140-440 Adult F 4.1-10.9 4.04-5.48 12.0-18.0 37.0-51.0 80-97 140-440 0- 1 Yr 5.0-20.0 3.9-5.9 15-18 MV: 44 MV: 91 MV: 277 2-9 Yr. 6.0-17.0 3.8-5.4 11-13 MV: 37 MV: 78 MV: 300 10 Yrs. 5.0-13.0 3.8-5.4 12-15 MV: 39 MV: 80 MV: 250 NOTE: * FOR ADULT BLACK MALES AND FEMALES, NORMAL WBC IS 2.9-7.7 K/ML * FOR ADULT BLACK MALES AND FEMALES, NORMAL RBC,HGB, AND HCT IS 5% LESS SOURCE FOR DATA: DAMARIS DYN 1800 OPERATION MANUAL( AUTOMATED BLOOD COUNTS AND DIFF.) APPENDIX B-3 Creat 0.9 mg/dL 0.5-1.0 [facility] CLASSIFICATION CHOLESTEROL FO R ADULTS CHILDREN/ADOLESCENTS* DESIRABLE: <200 MG/DL <170 MG/DL BORDER-LINE HIGH RISK: 200-239 MG/DL 170-199 MG/DL HIGH RISK: >240 MG/DL >200 MG/DL CLASS. FOR PRIMARY LDL CHOL PREVENTION: LDL CHOL-CHILD/ADOLESCENTS* DESIRABLE: <130 MG/DL <110 MG/DL BORDERLINE-HIGH RISK: 130-159 MG/DL 110-129 MG/DL HIGH RISK: >160 MG/DL >130 MG/DL *CHILDREN AND ADOLESCENTS REPRESENTS INDIVIDUALA AGED 2-19 YEARS EXCLUSIVE. CHRONIC KIDNEY DISEASE STAGING PER NKF: MALE [...] mL/min Normal 80 and above >32 mL/min NormalNORMAL RANGES Age WBC RBC HGB HCT MCV PLT Adult M 4.1-10.9 4.20-6.30 12.0-18.0 37.0-51.0 80-97 140-440 Adult F 4.1-10.9 4.04-5.48 12.0-18.0 37.0-51.0 80-97 140-440 0- 1 Yr 5.0-20.0 3.9-5.9 15-18 MV: 44 MV: 91 MV: 277 2-9 Yr. 6.0-17.0 3.8-5.4 11-13 MV: 37 MV: 78 MV: 300 10 Yrs. 5.0-13.0 3.8-5.4 12-15 MV: 39 MV: 80 MV: 250 NOTE: * FOR ADULT BLACK MALES AND FEMALES, NORMAL WBC IS 2.9-7.7 K/ML * FOR ADULT BLACK MALES AND FEMALES, NORMAL RBC,HGB, AND HCT IS 5% LESS SOURCE FOR DATA: [employer] 1800 OPERATION MANUAL( AUTOMATED BLOOD COUNTS AND DIFF.) APPENDIX B-3 K 5.0 mmol/L 3.5-5.1 [facility] ([facility] CLASSIFICATION CHOLESTEROL FO R ADULTS CHILDREN/ADOLESCENTS* DESIRABLE: <200 MG/DL <170 MG/DL BORDER-LINE HIGH RISK: 200-239 MG/DL 170-199 MG/DL HIGH RISK: >240 MG/DL >200 MG/DL CLASS. FOR PRIMARY LDL CHOL PREVENTION: LDL CHOL-CHILD/ADOLESCENTS* DESIRABLE: <130 MG/DL <110 MG/DL BORDERLINE-HIGH RISK: 130-159 MG/DL 110-129 MG/DL HIGH RISK: >160 MG/DL >130 MG/DL *CHILDREN AND ADOLESCENTS REPRESENTS INDIVIDUALA AGED 2-19 YEARS EXCLUSIVE. CHRONIC KIDNEY DISEASE STAGING PER NKF: MALE [...] mL/min Normal 80 and above >32 mL/min NormalNORMAL RANGES Age WBC RBC HGB HCT MCV PLT Adult M 4.1-10.9 4.20-6.30 12.0-18.0 37.0-51.0 80-97 140-440 Adult F 4.1-10.9 4.04-5.48 12.0-18.0 37.0-51.0 80-97 140-440 0- 1 Yr 5.0-20.0 3.9-5.9 15-18 MV: 44 MV: 91 MV: 277 2-9 Yr. 6.0-17.0 3.8-5.4 11-13 MV: 37 MV: 78 MV: 300 10 Yrs. 5.0-13.0 3.8-5.4 12-15 MV: 39 MV: 80 MV: 250 NOTE: * FOR ADULT BLACK MALES AND FEMALES, NORMAL WBC IS 2.9-7.7 K/ML * FOR ADULT BLACK MALES AND FEMALES, NORMAL RBC,HGB, AND HCT IS 5% LESS SOURCE FOR DATA: [employer] 1800 OPERATION MANUAL( AUTOMATED BLOOD COUNTS AND DIFF.) APPENDIX B-3 Na 139 mmol/L 136-145 [facility] ([facility] CLASSIFICATION CHOLESTEROL FO R ADULTS CHILDREN/ADOLESCENTS* DESIRABLE: <200 MG/DL <170 MG/DL BORDER-LINE HIGH RISK: 200-239 MG/DL 170-199 MG/DL HIGH RISK: >240 MG/DL >200 MG/DL CLASS. FOR PRIMARY LDL CHOL PREVENTION: LDL CHOL-CHILD/ADOLESCENTS* DESIRABLE: <130 MG/DL <110 MG/DL BORDERLINE-HIGH RISK: 130-159 MG/DL 110-129 MG/DL HIGH RISK: >160 MG/DL >130 MG/DL *CHILDREN AND ADOLESCENTS REPRESENTS INDIVIDUALA AGED 2-19 YEARS EXCLUSIVE. CHRONIC KIDNEY DISEASE STAGING PER NKF: MALE [...] mL/min Normal 80 and above >32 mL/min NormalNORMAL RANGES Age WBC RBC HGB HCT MCV PLT Adult M 4.1-10.9 4.20-6.30 12.0-18.0 37.0-51.0 80-97 140-440 Adult F 4.1-10.9 4.04-5.48 12.0-18.0 37.0-51.0 80-97 140-440 0- 1 Yr 5.0-20.0 3.9-5.9 15-18 MV: 44 MV: 91 MV: 277 2-9 Yr. 6.0-17.0 3.8-5.4 11-13 MV: 37 MV: 78 MV: 300 10 Yrs. 5.0-13.0 3.8-5.4 12-15 MV: 39 MV: 80 MV: 250 NOTE: * FOR ADULT BLACK MALES AND FEMALES, NORMAL WBC IS 2.9-7.7 K/ML * FOR ADULT BLACK MALES AND FEMALES, NORMAL RBC,HGB, AND HCT IS 5% LESS SOURCE FOR DATA: DAMARIS DYN 1800 OPERATION MANUAL( AUTOMATED BLOOD COUNTS AND DIFF.) APPENDIX B-3 BUN/Creatinine Ratio 18.5 CALC [facility] ([facility] CLASSIFICATION CHOLESTEROL FO R ADULTS CHILDREN/ADOLESCENTS* DESIRABLE: <200 MG/DL <170 MG/DL BORDER-LINE HIGH RISK: 200-239 MG/DL 170-199 MG/DL HIGH RISK: >240 MG/DL >200 MG/DL CLASS. FOR PRIMARY LDL CHOL PREVENTION: LDL CHOL-CHILD/ADOLESCENTS* DESIRABLE: <130 MG/DL <110 MG/DL BORDERLINE-HIGH RISK: 130-159 MG/DL 110-129 MG/DL HIGH RISK: >160 MG/DL >130 MG/DL *CHILDREN AND ADOLESCENTS REPRESENTS INDIVIDUALA AGED 2-19 YEARS EXCLUSIVE. CHRONIC KIDNEY DISEASE STAGING PER NKF: MALE [...] mL/min Normal 80 and above >32 mL/min NormalNORMAL RANGES Age WBC RBC HGB HCT MCV PLT Adult M 4.1-10.9 4.20-6.30 12.0-18.0 37.0-51.0 80-97 140-440 Adult F 4.1-10.9 4.04-5.48 12.0-18.0 37.0-51.0 80-97 140-440 0- 1 Yr 5.0-20.0 3.9-5.9 15-18 MV: 44 MV: 91 MV: 277 2-9 Yr. 6.0-17.0 3.8-5.4 11-13 MV: 37 MV: 78 MV: 300 10 Yrs. 5.0-13.0 3.8-5.4 12-15 MV: 39 MV: 80 MV: 250 NOTE: * FOR ADULT BLACK MALES AND FEMALES, NORMAL WBC IS 2.9-7.7 K/ML * FOR ADULT BLACK MALES AND FEMALES, NORMAL RBC,HGB, AND HCT IS 5% LESS SOURCE FOR DATA: [employer] 1800 OPERATION MANUAL( AUTOMATED BLOOD COUNTS AND DIFF.) APPENDIX B-3 CL 104.2 mmol/L 98.0-107.0 [facility] ([facility] CLASSIFICATION CHOLESTEROL FO R ADULTS CHILDREN/ADOLESCENTS* DESIRABLE: <200 MG/DL <170 MG/DL BORDER-LINE HIGH RISK: 200-239 MG/DL 170-199 MG/DL HIGH RISK: >240 MG/DL >200 MG/DL CLASS. FOR PRIMARY LDL CHOL PREVENTION: LDL CHOL-CHILD/ADOLESCENTS* DESIRABLE: <130 MG/DL <110 MG/DL BORDERLINE-HIGH RISK: 130-159 MG/DL 110-129 MG/DL HIGH RISK: >160 MG/DL >130 MG/DL *CHILDREN AND ADOLESCENTS REPRESENTS INDIVIDUALA AGED 2-19 YEARS EXCLUSIVE. CHRONIC KIDNEY DISEASE STAGING PER NKF: MALE [...] mL/min Normal 80 and above >32 mL/min NormalNORMAL RANGES Age WBC RBC HGB HCT MCV PLT Adult M 4.1-10.9 4.20-6.30 12.0-18.0 37.0-51.0 80-97 140-440 Adult F 4.1-10.9 4.04-5.48 12.0-18.0 37.0-51.0 80-97 140-440 0- 1 Yr 5.0-20.0 3.9-5.9 15-18 MV: 44 MV: 91 MV: 277 2-9 Yr. 6.0-17.0 3.8-5.4 11-13 MV: 37 MV: 78 MV: 300 10 Yrs. 5.0-13.0 3.8-5.4 12-15 MV: 39 MV: 80 MV: 250 NOTE: * FOR ADULT BLACK MALES AND FEMALES, NORMAL WBC IS 2.9-7.7 K/ML * FOR ADULT BLACK MALES AND FEMALES, NORMAL RBC,HGB, AND HCT IS 5% LESS SOURCE FOR DATA: DAMARIS DYN 1800 OPERATION MANUAL( AUTOMATED BLOOD COUNTS AND DIFF.) APPENDIX B-3 Co2 27.5 mmol/L 22.0-29.0 [facility] ([facility] CLASSIFICATION CHOLESTEROL FO R ADULTS CHILDREN/ADOLESCENTS* DESIRABLE: <200 MG/DL <170 MG/DL BORDER-LINE HIGH RISK: 200-239 MG/DL 170-199 MG/DL HIGH RISK: >240 MG/DL >200 MG/DL CLASS. FOR PRIMARY LDL CHOL PREVENTION: LDL CHOL-CHILD/ADOLESCENTS* DESIRABLE: <130 MG/DL <110 MG/DL BORDERLINE-HIGH RISK: 130-159 MG/DL 110-129 MG/DL HIGH RISK: >160 MG/DL >130 MG/DL *CHILDREN AND ADOLESCENTS REPRESENTS INDIVIDUALA AGED 2-19 YEARS EXCLUSIVE. CHRONIC KIDNEY DISEASE STAGING PER NKF: MALE [...] mL/min Normal 80 and above >32 mL/min NormalNORMAL RANGES Age WBC RBC HGB HCT MCV PLT Adult M 4.1-10.9 4.20-6.30 12.0-18.0 37.0-51.0 80-97 140-440 Adult F 4.1-10.9 4.04-5.48 12.0-18.0 37.0-51.0 80-97 140-440 0- 1 Yr 5.0-20.0 3.9-5.9 15-18 MV: 44 MV: 91 MV: 277 2-9 Yr. 6.0-17.0 3.8-5.4 11-13 MV: 37 MV: 78 MV: 300 10 Yrs. 5.0-13.0 3.8-5.4 12-15 MV: 39 MV: 80 MV: 250 NOTE: * FOR ADULT BLACK MALES AND FEMALES, NORMAL WBC IS 2.9-7.7 K/ML * FOR ADULT BLACK MALES AND FEMALES, NORMAL RBC,HGB, AND HCT IS 5% LESS SOURCE FOR DATA: Lamoda DYN 1800 OPERATION MANUAL( AUTOMATED BLOOD COUNTS AND DIFF.) APPENDIX B-3 CA 9.2 mg/dL 8.6-10.2 [facility] CLASSIFICATION CHOLESTEROL FO R ADULTS CHILDREN/ADOLESCENTS* DESIRABLE: <200 MG/DL <170 MG/DL BORDER-LINE HIGH RISK: 200-239 MG/DL 170-199 MG/DL HIGH RISK: >240 MG/DL >200 MG/DL CLASS. FOR PRIMARY LDL CHOL PREVENTION: LDL CHOL-CHILD/ADOLESCENTS* DESIRABLE: <130 MG/DL <110 MG/DL BORDERLINE-HIGH RISK: 130-159 MG/DL 110-129 MG/DL HIGH RISK: >160 MG/DL >130 MG/DL *CHILDREN AND ADOLESCENTS REPRESENTS INDIVIDUALA AGED 2-19 YEARS EXCLUSIVE. CHRONIC KIDNEY DISEASE STAGING PER NKF: MALE [...] mL/min Normal 80 and above >32 mL/min NormalNORMAL RANGES Age WBC RBC HGB HCT MCV PLT Adult M 4.1-10.9 4.20-6.30 12.0-18.0 37.0-51.0 80-97 140-440 Adult F 4.1-10.9 4.04-5.48 12.0-18.0 37.0-51.0 80-97 140-440 0- 1 Yr 5.0-20.0 3.9-5.9 15-18 MV: 44 MV: 91 MV: 277 2-9 Yr. 6.0-17.0 3.8-5.4 11-13 MV: 37 MV: 78 MV: 300 10 Yrs. 5.0-13.0 3.8-5.4 12-15 MV: 39 MV: 80 MV: 250 NOTE: * FOR ADULT BLACK MALES AND FEMALES, NORMAL WBC IS 2.9-7.7 K/ML * FOR ADULT BLACK MALES AND FEMALES, NORMAL RBC,HGB, AND HCT IS 5% LESS SOURCE FOR DATA: DAMARIS DYN 1800 OPERATION MANUAL( AUTOMATED BLOOD COUNTS AND DIFF.) APPENDIX B-3 TP 6.4 g/dL 6.6-8.7 Below low normal [facility] ( [facility] CLASSIFICATION CHOLESTEROL FO R ADULTS CHILDREN/ADOLESCENTS* DESIRABLE: <200 MG/DL <170 MG/DL BORDER-LINE HIGH RISK: 200-239 MG/DL 170-199 MG/DL HIGH RISK: >240 MG/DL >200 MG/DL CLASS. FOR PRIMARY LDL CHOL PREVENTION: LDL CHOL-CHILD/ADOLESCENTS* DESIRABLE: <130 MG/DL <110 MG/DL BORDERLINE-HIGH RISK: 130-159 MG/DL 110-129 MG/DL HIGH RISK: >160 MG/DL >130 MG/DL *CHILDREN AND ADOLESCENTS REPRESENTS INDIVIDUALA AGED 2-19 YEARS EXCLUSIVE. CHRONIC KIDNEY DISEASE STAGING PER NKF: MALE [...] mL/min Normal 80 and above >32 mL/min NormalNORMAL RANGES Age WBC RBC HGB HCT MCV PLT Adult M 4.1-10.9 4.20-6.30 12.0-18.0 37.0-51.0 80-97 140-440 Adult F 4.1-10.9 4.04-5.48 12.0-18.0 37.0-51.0 80-97 140-440 0- 1 Yr 5.0-20.0 3.9-5.9 15-18 MV: 44 MV: 91 MV: 277 2-9 Yr. 6.0-17.0 3.8-5.4 11-13 MV: 37 MV: 78 MV: 300 10 Yrs. 5.0-13.0 3.8-5.4 12-15 MV: 39 MV: 80 MV: 250 NOTE: * FOR ADULT BLACK MALES AND FEMALES, NORMAL WBC IS 2.9-7.7 K/ML * FOR ADULT BLACK MALES AND FEMALES, NORMAL RBC,HGB, AND HCT IS 5% LESS SOURCE FOR DATA: Yattos 1800 OPERATION MANUAL( AUTOMATED BLOOD COUNTS AND DIFF.) APPENDIX B-3 Globulin 2.5 CALC [facility] ([facility] CLASSIFICATION CHOLESTEROL FO R ADULTS CHILDREN/ADOLESCENTS* DESIRABLE: <200 MG/DL <170 MG/DL BORDER-LINE HIGH RISK: 200-239 MG/DL 170-199 MG/DL HIGH RISK: >240 MG/DL >200 MG/DL CLASS. FOR PRIMARY LDL CHOL PREVENTION: LDL CHOL-CHILD/ADOLESCENTS* DESIRABLE: <130 MG/DL <110 MG/DL BORDERLINE-HIGH RISK: 130-159 MG/DL 110-129 MG/DL HIGH RISK: >160 MG/DL >130 MG/DL *CHILDREN AND ADOLESCENTS REPRESENTS INDIVIDUALA AGED 2-19 YEARS EXCLUSIVE. CHRONIC KIDNEY DISEASE STAGING PER NKF: MALE [...] mL/min Normal 80 and above >32 mL/min NormalNORMAL RANGES Age WBC RBC HGB HCT MCV PLT Adult M 4.1-10.9 4.20-6.30 12.0-18.0 37.0-51.0 80-97 140-440 Adult F 4.1-10.9 4.04-5.48 12.0-18.0 37.0-51.0 80-97 140-440 0- 1 Yr 5.0-20.0 3.9-5.9 15-18 MV: 44 MV: 91 MV: 277 2-9 Yr. 6.0-17.0 3.8-5.4 11-13 MV: 37 MV: 78 MV: 300 10 Yrs. 5.0-13.0 3.8-5.4 12-15 MV: 39 MV: 80 MV: 250 NOTE: * FOR ADULT BLACK MALES AND FEMALES, NORMAL WBC IS 2.9-7.7 K/ML * FOR ADULT BLACK MALES AND FEMALES, NORMAL RBC,HGB, AND HCT IS 5% LESS SOURCE FOR DATA: DAMARIS DYN 1800 OPERATION MANUAL( AUTOMATED BLOOD COUNTS AND DIFF.) APPENDIX B-3 A/G Ratio 1.5 CALC [facility] CLASSIFICATION CHOLESTEROL FO R ADULTS CHILDREN/ADOLESCENTS* DESIRABLE: <200 MG/DL <170 MG/DL BORDER-LINE HIGH RISK: 200-239 MG/DL 170-199 MG/DL HIGH RISK: >240 MG/DL >200 MG/DL CLASS. FOR PRIMARY LDL CHOL PREVENTION: LDL CHOL-CHILD/ADOLESCENTS* DESIRABLE: <130 MG/DL <110 MG/DL BORDERLINE-HIGH RISK: 130-159 MG/DL 110-129 MG/DL HIGH RISK: >160 MG/DL >130 MG/DL *CHILDREN AND ADOLESCENTS REPRESENTS INDIVIDUALA AGED 2-19 YEARS EXCLUSIVE. CHRONIC KIDNEY DISEASE STAGING PER NKF: MALE [...] mL/min Normal 80 and above >32 mL/min NormalNORMAL RANGES Age WBC RBC HGB HCT MCV PLT Adult M 4.1-10.9 4.20-6.30 12.0-18.0 37.0-51.0 80-97 140-440 Adult F 4.1-10.9 4.04-5.48 12.0-18.0 37.0-51.0 80-97 140-440 0- 1 Yr 5.0-20.0 3.9-5.9 15-18 MV: 44 MV: 91 MV: 277 2-9 Yr. 6.0-17.0 3.8-5.4 11-13 MV: 37 MV: 78 MV: 300 10 Yrs. 5.0-13.0 3.8-5.4 12-15 MV: 39 MV: 80 MV: 250 NOTE: * FOR ADULT BLACK MALES AND FEMALES, NORMAL WBC IS 2.9-7.7 K/ML * FOR ADULT BLACK MALES AND FEMALES, NORMAL RBC,HGB, AND HCT IS 5% LESS SOURCE FOR DATA: DAMARIS DYN 1800 OPERATION MANUAL( AUTOMATED BLOOD COUNTS AND DIFF.) APPENDIX B-3 Alb 3.8 g/dL 3.4-4.8 [facility] CLASSIFICATION CHOLESTEROL FO R ADULTS CHILDREN/ADOLESCENTS* DESIRABLE: <200 MG/DL <170 MG/DL BORDER-LINE HIGH RISK: 200-239 MG/DL 170-199 MG/DL HIGH RISK: >240 MG/DL >200 MG/DL CLASS. FOR PRIMARY LDL CHOL PREVENTION: LDL CHOL-CHILD/ADOLESCENTS* DESIRABLE: <130 MG/DL <110 MG/DL BORDERLINE-HIGH RISK: 130-159 MG/DL 110-129 MG/DL HIGH RISK: >160 MG/DL >130 MG/DL *CHILDREN AND ADOLESCENTS REPRESENTS INDIVIDUALA AGED 2-19 YEARS EXCLUSIVE. CHRONIC KIDNEY DISEASE STAGING PER NKF: MALE [...] mL/min Normal 80 and above >32 mL/min NormalNORMAL RANGES Age WBC RBC HGB HCT MCV PLT Adult M 4.1-10.9 4.20-6.30 12.0-18.0 37.0-51.0 80-97 140-440 Adult F 4.1-10.9 4.04-5.48 12.0-18.0 37.0-51.0 80-97 140-440 0- 1 Yr 5.0-20.0 3.9-5.9 15-18 MV: 44 MV: 91 MV: 277 2-9 Yr. 6.0-17.0 3.8-5.4 11-13 MV: 37 MV: 78 MV: 300 10 Yrs. 5.0-13.0 3.8-5.4 12-15 MV: 39 MV: 80 MV: 250 NOTE: * FOR ADULT BLACK MALES AND FEMALES, NORMAL WBC IS 2.9-7.7 K/ML * FOR ADULT BLACK MALES AND FEMALES, NORMAL RBC,HGB, AND HCT IS 5% LESS SOURCE FOR DATA: DAMARIS DYN 1800 OPERATION MANUAL( AUTOMATED BLOOD COUNTS AND DIFF.) APPENDIX B-3 Alt (SGPT) 18 U/L 0-41 [facility] ([facility] CLASSIFICATION CHOLESTEROL FO R ADULTS CHILDREN/ADOLESCENTS* DESIRABLE: <200 MG/DL <170 MG/DL BORDER-LINE HIGH RISK: 200-239 MG/DL 170-199 MG/DL HIGH RISK: >240 MG/DL >200 MG/DL CLASS. FOR PRIMARY LDL CHOL PREVENTION: LDL CHOL-CHILD/ADOLESCENTS* DESIRABLE: <130 MG/DL <110 MG/DL BORDERLINE-HIGH RISK: 130-159 MG/DL 110-129 MG/DL HIGH RISK: >160 MG/DL >130 MG/DL *CHILDREN AND ADOLESCENTS REPRESENTS INDIVIDUALA AGED 2-19 YEARS EXCLUSIVE. CHRONIC KIDNEY DISEASE STAGING PER NKF: MALE [...] mL/min Normal 80 and above >32 mL/min NormalNORMAL RANGES Age WBC RBC HGB HCT MCV PLT Adult M 4.1-10.9 4.20-6.30 12.0-18.0 37.0-51.0 80-97 140-440 Adult F 4.1-10.9 4.04-5.48 12.0-18.0 37.0-51.0 80-97 140-440 0- 1 Yr 5.0-20.0 3.9-5.9 15-18 MV: 44 MV: 91 MV: 277 2-9 Yr. 6.0-17.0 3.8-5.4 11-13 MV: 37 MV: 78 MV: 300 10 Yrs. 5.0-13.0 3.8-5.4 12-15 MV: 39 MV: 80 MV: 250 NOTE: * FOR ADULT BLACK MALES AND FEMALES, NORMAL WBC IS 2.9-7.7 K/ML * FOR ADULT BLACK MALES AND FEMALES, NORMAL RBC,HGB, AND HCT IS 5% LESS SOURCE FOR DATA: Lamoda DYN 1800 OPERATION MANUAL( AUTOMATED BLOOD COUNTS AND DIFF.) APPENDIX B-3 Alp 63.7 U/L 35-129 [facility] CLASSIFICATION CHOLESTEROL FO R ADULTS CHILDREN/ADOLESCENTS* DESIRABLE: <200 MG/DL <170 MG/DL BORDER-LINE HIGH RISK: 200-239 MG/DL 170-199 MG/DL HIGH RISK: >240 MG/DL >200 MG/DL CLASS. FOR PRIMARY LDL CHOL PREVENTION: LDL CHOL-CHILD/ADOLESCENTS* DESIRABLE: <130 MG/DL <110 MG/DL BORDERLINE-HIGH RISK: 130-159 MG/DL 110-129 MG/DL HIGH RISK: >160 MG/DL >130 MG/DL *CHILDREN AND ADOLESCENTS REPRESENTS INDIVIDUALA AGED 2-19 YEARS EXCLUSIVE. CHRONIC KIDNEY DISEASE STAGING PER NKF: MALE [...] mL/min Normal 80 and above >32 mL/min NormalNORMAL RANGES Age WBC RBC HGB HCT MCV PLT Adult M 4.1-10.9 4.20-6.30 12.0-18.0 37.0-51.0 80-97 140-440 Adult F 4.1-10.9 4.04-5.48 12.0-18.0 37.0-51.0 80-97 140-440 0- 1 Yr 5.0-20.0 3.9-5.9 15-18 MV: 44 MV: 91 MV: 277 2-9 Yr. 6.0-17.0 3.8-5.4 11-13 MV: 37 MV: 78 MV: 300 10 Yrs. 5.0-13.0 3.8-5.4 12-15 MV: 39 MV: 80 MV: 250 NOTE: * FOR ADULT BLACK MALES AND FEMALES, NORMAL WBC IS 2.9-7.7 K/ML * FOR ADULT BLACK MALES AND FEMALES, NORMAL RBC,HGB, AND HCT IS 5% LESS SOURCE FOR DATA: Lamoda DYN 1800 OPERATION MANUAL( AUTOMATED BLOOD COUNTS AND DIFF.) APPENDIX B-3 Osmolality-Calculated 281.7 CALC MED [facility] ([facility] CLASSIFICATION CHOLESTEROL FO R ADULTS CHILDREN/ADOLESCENTS* DESIRABLE: <200 MG/DL <170 MG/DL BORDER-LINE HIGH RISK: 200-239 MG/DL 170-199 MG/DL HIGH RISK: >240 MG/DL >200 MG/DL CLASS. FOR PRIMARY LDL CHOL PREVENTION: LDL CHOL-CHILD/ADOLESCENTS* DESIRABLE: <130 MG/DL <110 MG/DL BORDERLINE-HIGH RISK: 130-159 MG/DL 110-129 MG/DL HIGH RISK: >160 MG/DL >130 MG/DL *CHILDREN AND ADOLESCENTS REPRESENTS INDIVIDUALA AGED 2-19 YEARS EXCLUSIVE. CHRONIC KIDNEY DISEASE STAGING PER NKF: MALE [...] mL/min Normal 80 and above >32 mL/min NormalNORMAL RANGES Age WBC RBC HGB HCT MCV PLT Adult M 4.1-10.9 4.20-6.30 12.0-18.0 37.0-51.0 80-97 140-440 Adult F 4.1-10.9 4.04-5.48 12.0-18.0 37.0-51.0 80-97 140-440 0- 1 Yr 5.0-20.0 3.9-5.9 15-18 MV: 44 MV: 91 MV: 277 2-9 Yr. 6.0-17.0 3.8-5.4 11-13 MV: 37 MV: 78 MV: 300 10 Yrs. 5.0-13.0 3.8-5.4 12-15 MV: 39 MV: 80 MV: 250 NOTE: * FOR ADULT BLACK MALES AND FEMALES, NORMAL WBC IS 2.9-7.7 K/ML * FOR ADULT BLACK MALES AND FEMALES, NORMAL RBC,HGB, AND HCT IS 5% LESS SOURCE FOR DATA: DAMARIS DYN 1800 OPERATION MANUAL( AUTOMATED BLOOD COUNTS AND DIFF.) APPENDIX B-3 Tbili 0.49 mg/dL 0.0-1.2 [facility] ([facility] CLASSIFICATION CHOLESTEROL FO R ADULTS CHILDREN/ADOLESCENTS* DESIRABLE: <200 MG/DL <170 MG/DL BORDER-LINE HIGH RISK: 200-239 MG/DL 170-199 MG/DL HIGH RISK: >240 MG/DL >200 MG/DL CLASS. FOR PRIMARY LDL CHOL PREVENTION: LDL CHOL-CHILD/ADOLESCENTS* DESIRABLE: <130 MG/DL <110 MG/DL BORDERLINE-HIGH RISK: 130-159 MG/DL 110-129 MG/DL HIGH RISK: >160 MG/DL >130 MG/DL *CHILDREN AND ADOLESCENTS REPRESENTS INDIVIDUALA AGED 2-19 YEARS EXCLUSIVE. CHRONIC KIDNEY DISEASE STAGING PER NKF: MALE [...] mL/min Normal 80 and above >32 mL/min NormalNORMAL RANGES Age WBC RBC HGB HCT MCV PLT Adult M 4.1-10.9 4.20-6.30 12.0-18.0 37.0-51.0 80-97 140-440 Adult F 4.1-10.9 4.04-5.48 12.0-18.0 37.0-51.0 80-97 140-440 0- 1 Yr 5.0-20.0 3.9-5.9 15-18 MV: 44 MV: 91 MV: 277 2-9 Yr. 6.0-17.0 3.8-5.4 11-13 MV: 37 MV: 78 MV: 300 10 Yrs. 5.0-13.0 3.8-5.4 12-15 MV: 39 MV: 80 MV: 250 NOTE: * FOR ADULT BLACK MALES AND FEMALES, NORMAL WBC IS 2.9-7.7 K/ML * FOR ADULT BLACK MALES AND FEMALES, NORMAL RBC,HGB, AND HCT IS 5% LESS SOURCE FOR DATA: Yattos 1800 OPERATION MANUAL( AUTOMATED BLOOD COUNTS AND DIFF.) APPENDIX B-3 Ast (Sgot) 20 U/L 0-40 [facility] ([facility] CLASSIFICATION CHOLESTEROL FO R ADULTS CHILDREN/ADOLESCENTS* DESIRABLE: <200 MG/DL <170 MG/DL BORDER-LINE HIGH RISK: 200-239 MG/DL 170-199 MG/DL HIGH RISK: >240 MG/DL >200 MG/DL CLASS. FOR PRIMARY LDL CHOL PREVENTION: LDL CHOL-CHILD/ADOLESCENTS* DESIRABLE: <130 MG/DL <110 MG/DL BORDERLINE-HIGH RISK: 130-159 MG/DL 110-129 MG/DL HIGH RISK: >160 MG/DL >130 MG/DL *CHILDREN AND ADOLESCENTS REPRESENTS INDIVIDUALA AGED 2-19 YEARS EXCLUSIVE. CHRONIC KIDNEY DISEASE STAGING PER NKF: MALE [...] mL/min Normal 80 and above >32 mL/min NormalNORMAL RANGES Age WBC RBC HGB HCT MCV PLT Adult M 4.1-10.9 4.20-6.30 12.0-18.0 37.0-51.0 80-97 140-440 Adult F 4.1-10.9 4.04-5.48 12.0-18.0 37.0-51.0 80-97 140-440 0- 1 Yr 5.0-20.0 3.9-5.9 15-18 MV: 44 MV: 91 MV: 277 2-9 Yr. 6.0-17.0 3.8-5.4 11-13 MV: 37 MV: 78 MV: 300 10 Yrs. 5.0-13.0 3.8-5.4 12-15 MV: 39 MV: 80 MV: 250 NOTE: * FOR ADULT BLACK MALES AND FEMALES, NORMAL WBC IS 2.9-7.7 K/ML * FOR ADULT BLACK MALES AND FEMALES, NORMAL RBC,HGB, AND HCT IS 5% LESS SOURCE FOR DATA: Lamoda DYN 1800 OPERATION MANUAL( AUTOMATED BLOOD COUNTS AND DIFF.) APPENDIX B-3 eGFR 72 # [facility] ( [facility] CKD-EPI Anion Gap 13 mmol/L [facility] ([facility] CLASSIFICATION CHOLESTEROL FO R ADULTS CHILDREN/ADOLESCENTS* DESIRABLE: <200 MG/DL <170 MG/DL BORDER-LINE HIGH RISK: 200-239 MG/DL 170-199 MG/DL HIGH RISK: >240 MG/DL >200 MG/DL CLASS. FOR PRIMARY LDL CHOL PREVENTION: LDL CHOL-CHILD/ADOLESCENTS* DESIRABLE: <130 MG/DL <110 MG/DL BORDERLINE-HIGH RISK: 130-159 MG/DL 110-129 MG/DL HIGH RISK: >160 MG/DL >130 MG/DL *CHILDREN AND ADOLESCENTS REPRESENTS INDIVIDUALA AGED 2-19 YEARS EXCLUSIVE. CHRONIC KIDNEY DISEASE STAGING PER NKF: MALE [...] mL/min Normal 80 and above >32 mL/min NormalNORMAL RANGES Age WBC RBC HGB HCT MCV PLT Adult M 4.1-10.9 4.20-6.30 12.0-18.0 37.0-51.0 80-97 140-440 Adult F 4.1-10.9 4.04-5.48 12.0-18.0 37.0-51.0 80-97 140-440 0- 1 Yr 5.0-20.0 3.9-5.9 15-18 MV: 44 MV: 91 MV: 277 2-9 Yr. 6.0-17.0 3.8-5.4 11-13 MV: 37 MV: 78 MV: 300 10 Yrs. 5.0-13.0 3.8-5.4 12-15 MV: 39 MV: 80 MV: 250 NOTE: * FOR ADULT BLACK MALES AND FEMALES, NORMAL WBC IS 2.9-7.7 K/ML * FOR ADULT BLACK MALES AND FEMALES, NORMAL RBC,HGB, AND HCT IS 5% LESS SOURCE FOR DATA: Lamoda DYN 1800 OPERATION MANUAL( AUTOMATED BLOOD COUNTS AND DIFF.) APPENDIX B-3 eGFR Non-Afr. [place] 63 # [facility] ([facility] CKD-EPI ID Date Data Source [id number] 06/20/2019 09:17:00 AM EST [facility] ([facility] Name Value Range Interpretation Code Description Data Su rce(s) Supporting Document(s) RBC 4.48 10E6/uL 4.20-6.30 [facility] CLASSIFICATION CHOLESTEROL FO R ADULTS CHILDREN/ADOLESCENTS* DESIRABLE: <200 MG/DL <170 MG/DL BORDER-LINE HIGH RISK: 200-239 MG/DL 170-199 MG/DL HIGH RISK: >240 MG/DL >200 MG/DL CLASS. FOR PRIMARY LDL CHOL PREVENTION: LDL CHOL-CHILD/ADOLESCENTS* DESIRABLE: <130 MG/DL <110 MG/DL BORDERLINE-HIGH RISK: 130-159 MG/DL 110-129 MG/DL HIGH RISK: >160 MG/DL >130 MG/DL *CHILDREN AND ADOLESCENTS REPRESENTS INDIVIDUALA AGED 2-19 YEARS EXCLUSIVE. CHRONIC KIDNEY DISEASE STAGING PER NKF: MALE [...] mL/min Normal 80 and above >32 mL/min NormalNORMAL RANGES Age WBC RBC HGB HCT MCV PLT Adult M 4.1-10.9 4.20-6.30 12.0-18.0 37.0-51.0 80-97 140-440 Adult F 4.1-10.9 4.04-5.48 12.0-18.0 37.0-51.0 80-97 140-440 0- 1 Yr 5.0-20.0 3.9-5.9 15-18 MV: 44 MV: 91 MV: 277 2-9 Yr. 6.0-17.0 3.8-5.4 11-13 MV: 37 MV: 78 MV: 300 10 Yrs. 5.0-13.0 3.8-5.4 12-15 MV: 39 MV: 80 MV: 250 NOTE: * FOR ADULT BLACK MALES AND FEMALES, NORMAL WBC IS 2.9-7.7 K/ML * FOR ADULT BLACK MALES AND FEMALES, NORMAL RBC,HGB, AND HCT IS 5% LESS SOURCE FOR DATA: Yattos 1800 OPERATION MANUAL( AUTOMATED BLOOD COUNTS AND DIFF.) APPENDIX B-3 WBC 6.7 10E3/uL 4.1-10.9 [facility] CLASSIFICATION CHOLESTEROL FO R ADULTS CHILDREN/ADOLESCENTS* DESIRABLE: <200 MG/DL <170 MG/DL BORDER-LINE HIGH RISK: 200-239 MG/DL 170-199 MG/DL HIGH RISK: >240 MG/DL >200 MG/DL CLASS. FOR PRIMARY LDL CHOL PREVENTION: LDL CHOL-CHILD/ADOLESCENTS* DESIRABLE: <130 MG/DL <110 MG/DL BORDERLINE-HIGH RISK: 130-159 MG/DL 110-129 MG/DL HIGH RISK: >160 MG/DL >130 MG/DL *CHILDREN AND ADOLESCENTS REPRESENTS INDIVIDUALA AGED 2-19 YEARS EXCLUSIVE. CHRONIC KIDNEY DISEASE STAGING PER NKF: MALE [...] mL/min Normal 80 and above >32 mL/min NormalNORMAL RANGES Age WBC RBC HGB HCT MCV PLT Adult M 4.1-10.9 4.20-6.30 12.0-18.0 37.0-51.0 80-97 140-440 Adult F 4.1-10.9 4.04-5.48 12.0-18.0 37.0-51.0 80-97 140-440 0- 1 Yr 5.0-20.0 3.9-5.9 15-18 MV: 44 MV: 91 MV: 277 2-9 Yr. 6.0-17.0 3.8-5.4 11-13 MV: 37 MV: 78 MV: 300 10 Yrs. 5.0-13.0 3.8-5.4 12-15 MV: 39 MV: 80 MV: 250 NOTE: * FOR ADULT BLACK MALES AND FEMALES, NORMAL WBC IS 2.9-7.7 K/ML * FOR ADULT BLACK MALES AND FEMALES, NORMAL RBC,HGB, AND HCT IS 5% LESS SOURCE FOR DATA: [email or web address] [email or web address] 1800 OPERATION MANUAL( AUTOMATED BLOOD COUNTS AND DIFF.) APPENDIX B-3 HGB 13.8 g/dL 12.0-18.0 [facility] ([facility] CLASSIFICATION CHOLESTEROL FO R ADULTS CHILDREN/ADOLESCENTS* DESIRABLE: <200 MG/DL <170 MG/DL BORDER-LINE HIGH RISK: 200-239 MG/DL 170-199 MG/DL HIGH RISK: >240 MG/DL >200 MG/DL CLASS. FOR PRIMARY LDL CHOL PREVENTION: LDL CHOL-CHILD/ADOLESCENTS* DESIRABLE: <130 MG/DL <110 MG/DL BORDERLINE-HIGH RISK: 130-159 MG/DL 110-129 MG/DL HIGH RISK: >160 MG/DL >130 MG/DL *CHILDREN AND ADOLESCENTS REPRESENTS INDIVIDUALA AGED 2-19 YEARS EXCLUSIVE. CHRONIC KIDNEY DISEASE STAGING PER NKF: MALE [...] mL/min Normal 80 and above >32 mL/min NormalNORMAL RANGES Age WBC RBC HGB HCT MCV PLT Adult M 4.1-10.9 4.20-6.30 12.0-18.0 37.0-51.0 80-97 140-440 Adult F 4.1-10.9 4.04-5.48 12.0-18.0 37.0-51.0 80-97 140-440 0- 1 Yr 5.0-20.0 3.9-5.9 15-18 MV: 44 MV: 91 MV: 277 2-9 Yr. 6.0-17.0 3.8-5.4 11-13 MV: 37 MV: 78 MV: 300 10 Yrs. 5.0-13.0 3.8-5.4 12-15 MV: 39 MV: 80 MV: 250 NOTE: * FOR ADULT BLACK MALES AND FEMALES, NORMAL WBC IS 2.9-7.7 K/ML * FOR ADULT BLACK MALES AND FEMALES, NORMAL RBC,HGB, AND HCT IS 5% LESS SOURCE FOR DATA: Lamoda DYN 1800 OPERATION MANUAL( AUTOMATED BLOOD COUNTS AND DIFF.) APPENDIX B-3 HCT 41.2 % 37.0-51.0 [facility] CLASSIFICATION CHOLESTEROL FO R ADULTS CHILDREN/ADOLESCENTS* DESIRABLE: <200 MG/DL <170 MG/DL BORDER-LINE HIGH RISK: 200-239 MG/DL 170-199 MG/DL HIGH RISK: >240 MG/DL >200 MG/DL CLASS. FOR PRIMARY LDL CHOL PREVENTION: LDL CHOL-CHILD/ADOLESCENTS* DESIRABLE: <130 MG/DL <110 MG/DL BORDERLINE-HIGH RISK: 130-159 MG/DL 110-129 MG/DL HIGH RISK: >160 MG/DL >130 MG/DL *CHILDREN AND ADOLESCENTS REPRESENTS INDIVIDUALA AGED 2-19 YEARS EXCLUSIVE. CHRONIC KIDNEY DISEASE STAGING PER NKF: MALE [...] mL/min Normal 80 and above >32 mL/min NormalNORMAL RANGES Age WBC RBC HGB HCT MCV PLT Adult M 4.1-10.9 4.20-6.30 12.0-18.0 37.0-51.0 80-97 140-440 Adult F 4.1-10.9 4.04-5.48 12.0-18.0 37.0-51.0 80-97 140-440 0- 1 Yr 5.0-20.0 3.9-5.9 15-18 MV: 44 MV: 91 MV: 277 2-9 Yr. 6.0-17.0 3.8-5.4 11-13 MV: 37 MV: 78 MV: 300 10 Yrs. 5.0-13.0 3.8-5.4 12-15 MV: 39 MV: 80 MV: 250 NOTE: * FOR ADULT BLACK MALES AND FEMALES, NORMAL WBC IS 2.9-7.7 K/ML * FOR ADULT BLACK MALES AND FEMALES, NORMAL RBC,HGB, AND HCT IS 5% LESS SOURCE FOR DATA: DAMARIS DYN 1800 OPERATION MANUAL( AUTOMATED BLOOD COUNTS AND DIFF.) APPENDIX B-3 MCH 30.8 pg 26.0-32.0 [facility] CLASSIFICATION CHOLESTEROL FO R ADULTS CHILDREN/ADOLESCENTS* DESIRABLE: <200 MG/DL <170 MG/DL BORDER-LINE HIGH RISK: 200-239 MG/DL 170-199 MG/DL HIGH RISK: >240 MG/DL >200 MG/DL CLASS. FOR PRIMARY LDL CHOL PREVENTION: LDL CHOL-CHILD/ADOLESCENTS* DESIRABLE: <130 MG/DL <110 MG/DL BORDERLINE-HIGH RISK: 130-159 MG/DL 110-129 MG/DL HIGH RISK: >160 MG/DL >130 MG/DL *CHILDREN AND ADOLESCENTS REPRESENTS INDIVIDUALA AGED 2-19 YEARS EXCLUSIVE. CHRONIC KIDNEY DISEASE STAGING PER NKF: MALE [...] mL/min Normal 80 and above >32 mL/min NormalNORMAL RANGES Age WBC RBC HGB HCT MCV PLT Adult M 4.1-10.9 4.20-6.30 12.0-18.0 37.0-51.0 80-97 140-440 Adult F 4.1-10.9 4.04-5.48 12.0-18.0 37.0-51.0 80-97 140-440 0- 1 Yr 5.0-20.0 3.9-5.9 15-18 MV: 44 MV: 91 MV: 277 2-9 Yr. 6.0-17.0 3.8-5.4 11-13 MV: 37 MV: 78 MV: 300 10 Yrs. 5.0-13.0 3.8-5.4 12-15 MV: 39 MV: 80 MV: 250 NOTE: * FOR ADULT BLACK MALES AND FEMALES, NORMAL WBC IS 2.9-7.7 K/ML * FOR ADULT BLACK MALES AND FEMALES, NORMAL RBC,HGB, AND HCT IS 5% LESS SOURCE FOR DATA: [employer] 1800 OPERATION MANUAL( AUTOMATED BLOOD COUNTS AND DIFF.) APPENDIX B-3 MCV 92.0 fL 80.0-97.0 [facility] ([facility] CLASSIFICATION CHOLESTEROL FO R ADULTS CHILDREN/ADOLESCENTS* DESIRABLE: <200 MG/DL <170 MG/DL BORDER-LINE HIGH RISK: 200-239 MG/DL 170-199 MG/DL HIGH RISK: >240 MG/DL >200 MG/DL CLASS. FOR PRIMARY LDL CHOL PREVENTION: LDL CHOL-CHILD/ADOLESCENTS* DESIRABLE: <130 MG/DL <110 MG/DL BORDERLINE-HIGH RISK: 130-159 MG/DL 110-129 MG/DL HIGH RISK: >160 MG/DL >130 MG/DL *CHILDREN AND ADOLESCENTS REPRESENTS INDIVIDUALA AGED 2-19 YEARS EXCLUSIVE. CHRONIC KIDNEY DISEASE STAGING PER NKF: MALE [...] mL/min Normal 80 and above >32 mL/min NormalNORMAL RANGES Age WBC RBC HGB HCT MCV PLT Adult M 4.1-10.9 4.20-6.30 12.0-18.0 37.0-51.0 80-97 140-440 Adult F 4.1-10.9 4.04-5.48 12.0-18.0 37.0-51.0 80-97 140-440 0- 1 Yr 5.0-20.0 3.9-5.9 15-18 MV: 44 MV: 91 MV: 277 2-9 Yr. 6.0-17.0 3.8-5.4 11-13 MV: 37 MV: 78 MV: 300 10 Yrs. 5.0-13.0 3.8-5.4 12-15 MV: 39 MV: 80 MV: 250 NOTE: * FOR ADULT BLACK MALES AND FEMALES, NORMAL WBC IS 2.9-7.7 K/ML * FOR ADULT BLACK MALES AND FEMALES, NORMAL RBC,HGB, AND HCT IS 5% LESS SOURCE FOR DATA: [employer] 1800 OPERATION MANUAL( AUTOMATED BLOOD COUNTS AND DIFF.) APPENDIX B-3 RDW-CV 13.2 % 11.5-14.5 [facility] ([facility] CLASSIFICATION CHOLESTEROL FO R ADULTS CHILDREN/ADOLESCENTS* DESIRABLE: <200 MG/DL <170 MG/DL BORDER-LINE HIGH RISK: 200-239 MG/DL 170-199 MG/DL HIGH RISK: >240 MG/DL >200 MG/DL CLASS. FOR PRIMARY LDL CHOL PREVENTION: LDL CHOL-CHILD/ADOLESCENTS* DESIRABLE: <130 MG/DL <110 MG/DL BORDERLINE-HIGH RISK: 130-159 MG/DL 110-129 MG/DL HIGH RISK: >160 MG/DL >130 MG/DL *CHILDREN AND ADOLESCENTS REPRESENTS INDIVIDUALA AGED 2-19 YEARS EXCLUSIVE. CHRONIC KIDNEY DISEASE STAGING PER NKF: MALE [...] mL/min Normal 80 and above >32 mL/min NormalNORMAL RANGES Age WBC RBC HGB HCT MCV PLT Adult M 4.1-10.9 4.20-6.30 12.0-18.0 37.0-51.0 80-97 140-440 Adult F 4.1-10.9 4.04-5.48 12.0-18.0 37.0-51.0 80-97 140-440 0- 1 Yr 5.0-20.0 3.9-5.9 15-18 MV: 44 MV: 91 MV: 277 2-9 Yr. 6.0-17.0 3.8-5.4 11-13 MV: 37 MV: 78 MV: 300 10 Yrs. 5.0-13.0 3.8-5.4 12-15 MV: 39 MV: 80 MV: 250 NOTE: * FOR ADULT BLACK MALES AND FEMALES, NORMAL WBC IS 2.9-7.7 K/ML * FOR ADULT BLACK MALES AND FEMALES, NORMAL RBC,HGB, AND HCT IS 5% LESS SOURCE FOR DATA: DAMARIS DYN 1800 OPERATION MANUAL( AUTOMATED BLOOD COUNTS AND DIFF.) APPENDIX B-3 PLT 199 10E3/uL 140-440 [facility] ([facility] CLASSIFICATION CHOLESTEROL FO R ADULTS CHILDREN/ADOLESCENTS* DESIRABLE: <200 MG/DL <170 MG/DL BORDER-LINE HIGH RISK: 200-239 MG/DL 170-199 MG/DL HIGH RISK: >240 MG/DL >200 MG/DL CLASS. FOR PRIMARY LDL CHOL PREVENTION: LDL CHOL-CHILD/ADOLESCENTS* DESIRABLE: <130 MG/DL <110 MG/DL BORDERLINE-HIGH RISK: 130-159 MG/DL 110-129 MG/DL HIGH RISK: >160 MG/DL >130 MG/DL *CHILDREN AND ADOLESCENTS REPRESENTS INDIVIDUALA AGED 2-19 YEARS EXCLUSIVE. CHRONIC KIDNEY DISEASE STAGING PER NKF: MALE [...] mL/min Normal 80 and above >32 mL/min NormalNORMAL RANGES Age WBC RBC HGB HCT MCV PLT Adult M 4.1-10.9 4.20-6.30 12.0-18.0 37.0-51.0 80-97 140-440 Adult F 4.1-10.9 4.04-5.48 12.0-18.0 37.0-51.0 80-97 140-440 0- 1 Yr 5.0-20.0 3.9-5.9 15-18 MV: 44 MV: 91 MV: 277 2-9 Yr. 6.0-17.0 3.8-5.4 11-13 MV: 37 MV: 78 MV: 300 10 Yrs. 5.0-13.0 3.8-5.4 12-15 MV: 39 MV: 80 MV: 250 NOTE: * FOR ADULT BLACK MALES AND FEMALES, NORMAL WBC IS 2.9-7.7 K/ML * FOR ADULT BLACK MALES AND FEMALES, NORMAL RBC,HGB, AND HCT IS 5% LESS SOURCE FOR DATA: DAMARIS DYN 1800 OPERATION MANUAL( AUTOMATED BLOOD COUNTS AND DIFF.) APPENDIX B-3 MCHC 33.5 g/dL 31.0-36.0 [facility] CLASSIFICATION CHOLESTEROL FO R ADULTS CHILDREN/ADOLESCENTS* DESIRABLE: <200 MG/DL <170 MG/DL BORDER-LINE HIGH RISK: 200-239 MG/DL 170-199 MG/DL HIGH RISK: >240 MG/DL >200 MG/DL CLASS. FOR PRIMARY LDL CHOL PREVENTION: LDL CHOL-CHILD/ADOLESCENTS* DESIRABLE: <130 MG/DL <110 MG/DL BORDERLINE-HIGH RISK: 130-159 MG/DL 110-129 MG/DL HIGH RISK: >160 MG/DL >130 MG/DL *CHILDREN AND ADOLESCENTS REPRESENTS INDIVIDUALA AGED 2-19 YEARS EXCLUSIVE. CHRONIC KIDNEY DISEASE STAGING PER NKF: MALE [...] mL/min Normal 80 and above >32 mL/min NormalNORMAL RANGES Age WBC RBC HGB HCT MCV PLT Adult M 4.1-10.9 4.20-6.30 12.0-18.0 37.0-51.0 80-97 140-440 Adult F 4.1-10.9 4.04-5.48 12.0-18.0 37.0-51.0 80-97 140-440 0- 1 Yr 5.0-20.0 3.9-5.9 15-18 MV: 44 MV: 91 MV: 277 2-9 Yr. 6.0-17.0 3.8-5.4 11-13 MV: 37 MV: 78 MV: 300 10 Yrs. 5.0-13.0 3.8-5.4 12-15 MV: 39 MV: 80 MV: 250 NOTE: * FOR ADULT BLACK MALES AND FEMALES, NORMAL WBC IS 2.9-7.7 K/ML * FOR ADULT BLACK MALES AND FEMALES, NORMAL RBC,HGB, AND HCT IS 5% LESS SOURCE FOR DATA: Yattos 1800 OPERATION MANUAL( AUTOMATED BLOOD COUNTS AND DIFF.) APPENDIX B-3 Lym% 27.5 % 10.0-58.5 [facility] ([facility] CLASSIFICATION CHOLESTEROL FO R ADULTS CHILDREN/ADOLESCENTS* DESIRABLE: <200 MG/DL <170 MG/DL BORDER-LINE HIGH RISK: 200-239 MG/DL 170-199 MG/DL HIGH RISK: >240 MG/DL >200 MG/DL CLASS. FOR PRIMARY LDL CHOL PREVENTION: LDL CHOL-CHILD/ADOLESCENTS* DESIRABLE: <130 MG/DL <110 MG/DL BORDERLINE-HIGH RISK: 130-159 MG/DL 110-129 MG/DL HIGH RISK: >160 MG/DL >130 MG/DL *CHILDREN AND ADOLESCENTS REPRESENTS INDIVIDUALA AGED 2-19 YEARS EXCLUSIVE. CHRONIC KIDNEY DISEASE STAGING PER NKF: MALE [...] mL/min Normal 80 and above >32 mL/min NormalNORMAL RANGES Age WBC RBC HGB HCT MCV PLT Adult M 4.1-10.9 4.20-6.30 12.0-18.0 37.0-51.0 80-97 140-440 Adult F 4.1-10.9 4.04-5.48 12.0-18.0 37.0-51.0 80-97 140-440 0- 1 Yr 5.0-20.0 3.9-5.9 15-18 MV: 44 MV: 91 MV: 277 2-9 Yr. 6.0-17.0 3.8-5.4 11-13 MV: 37 MV: 78 MV: 300 10 Yrs. 5.0-13.0 3.8-5.4 12-15 MV: 39 MV: 80 MV: 250 NOTE: * FOR ADULT BLACK MALES AND FEMALES, NORMAL WBC IS 2.9-7.7 K/ML * FOR ADULT BLACK MALES AND FEMALES, NORMAL RBC,HGB, AND HCT IS 5% LESS SOURCE FOR DATA: Lamoda DYN 1800 OPERATION MANUAL( AUTOMATED BLOOD COUNTS AND DIFF.) APPENDIX B-3 Neut% 63.4 % 37.0-92.0 [facility] ([facility] CLASSIFICATION CHOLESTEROL FO R ADULTS CHILDREN/ADOLESCENTS* DESIRABLE: <200 MG/DL <170 MG/DL BORDER-LINE HIGH RISK: 200-239 MG/DL 170-199 MG/DL HIGH RISK: >240 MG/DL >200 MG/DL CLASS. FOR PRIMARY LDL CHOL PREVENTION: LDL CHOL-CHILD/ADOLESCENTS* DESIRABLE: <130 MG/DL <110 MG/DL BORDERLINE-HIGH RISK: 130-159 MG/DL 110-129 MG/DL HIGH RISK: >160 MG/DL >130 MG/DL *CHILDREN AND ADOLESCENTS REPRESENTS INDIVIDUALA AGED 2-19 YEARS EXCLUSIVE. CHRONIC KIDNEY DISEASE STAGING PER NKF: MALE [...] mL/min Normal 80 and above >32 mL/min NormalNORMAL RANGES Age WBC RBC HGB HCT MCV PLT Adult M 4.1-10.9 4.20-6.30 12.0-18.0 37.0-51.0 80-97 140-440 Adult F 4.1-10.9 4.04-5.48 12.0-18.0 37.0-51.0 80-97 140-440 0- 1 Yr 5.0-20.0 3.9-5.9 15-18 MV: 44 MV: 91 MV: 277 2-9 Yr. 6.0-17.0 3.8-5.4 11-13 MV: 37 MV: 78 MV: 300 10 Yrs. 5.0-13.0 3.8-5.4 12-15 MV: 39 MV: 80 MV: 250 NOTE: * FOR ADULT BLACK MALES AND FEMALES, NORMAL WBC IS 2.9-7.7 K/ML * FOR ADULT BLACK MALES AND FEMALES, NORMAL RBC,HGB, AND HCT IS 5% LESS SOURCE FOR DATA: Lamoda DYN 1800 OPERATION MANUAL( AUTOMATED BLOOD COUNTS AND DIFF.) APPENDIX B-3 Lym# 1.8 10E3/uL 0.6-4.1 [facility] CLASSIFICATION CHOLESTEROL FO R ADULTS CHILDREN/ADOLESCENTS* DESIRABLE: <200 MG/DL <170 MG/DL BORDER-LINE HIGH RISK: 200-239 MG/DL 170-199 MG/DL HIGH RISK: >240 MG/DL >200 MG/DL CLASS. FOR PRIMARY LDL CHOL PREVENTION: LDL CHOL-CHILD/ADOLESCENTS* DESIRABLE: <130 MG/DL <110 MG/DL BORDERLINE-HIGH RISK: 130-159 MG/DL 110-129 MG/DL HIGH RISK: >160 MG/DL >130 MG/DL *CHILDREN AND ADOLESCENTS REPRESENTS INDIVIDUALA AGED 2-19 YEARS EXCLUSIVE. CHRONIC KIDNEY DISEASE STAGING PER NKF: MALE [...] mL/min Normal 80 and above >32 mL/min NormalNORMAL RANGES Age WBC RBC HGB HCT MCV PLT Adult M 4.1-10.9 4.20-6.30 12.0-18.0 37.0-51.0 80-97 140-440 Adult F 4.1-10.9 4.04-5.48 12.0-18.0 37.0-51.0 80-97 140-440 0- 1 Yr 5.0-20.0 3.9-5.9 15-18 MV: 44 MV: 91 MV: 277 2-9 Yr. 6.0-17.0 3.8-5.4 11-13 MV: 37 MV: 78 MV: 300 10 Yrs. 5.0-13.0 3.8-5.4 12-15 MV: 39 MV: 80 MV: 250 NOTE: * FOR ADULT BLACK MALES AND FEMALES, NORMAL WBC IS 2.9-7.7 K/ML * FOR ADULT BLACK MALES AND FEMALES, NORMAL RBC,HGB, AND HCT IS 5% LESS SOURCE FOR DATA: Lamoda DYN 1800 OPERATION MANUAL( AUTOMATED BLOOD COUNTS AND DIFF.) APPENDIX B-3 MXD% 9.1 % 0.1-24.0 [facility] ([facility] CLASSIFICATION CHOLESTEROL FO R ADULTS CHILDREN/ADOLESCENTS* DESIRABLE: <200 MG/DL <170 MG/DL BORDER-LINE HIGH RISK: 200-239 MG/DL 170-199 MG/DL HIGH RISK: >240 MG/DL >200 MG/DL CLASS. FOR PRIMARY LDL CHOL PREVENTION: LDL CHOL-CHILD/ADOLESCENTS* DESIRABLE: <130 MG/DL <110 MG/DL BORDERLINE-HIGH RISK: 130-159 MG/DL 110-129 MG/DL HIGH RISK: >160 MG/DL >130 MG/DL *CHILDREN AND ADOLESCENTS REPRESENTS INDIVIDUALA AGED 2-19 YEARS EXCLUSIVE. CHRONIC KIDNEY DISEASE STAGING PER NKF: MALE [...] mL/min Normal 80 and above >32 mL/min NormalNORMAL RANGES Age WBC RBC HGB HCT MCV PLT Adult M 4.1-10.9 4.20-6.30 12.0-18.0 37.0-51.0 80-97 140-440 Adult F 4.1-10.9 4.04-5.48 12.0-18.0 37.0-51.0 80-97 140-440 0- 1 Yr 5.0-20.0 3.9-5.9 15-18 MV: 44 MV: 91 MV: 277 2-9 Yr. 6.0-17.0 3.8-5.4 11-13 MV: 37 MV: 78 MV: 300 10 Yrs. 5.0-13.0 3.8-5.4 12-15 MV: 39 MV: 80 MV: 250 NOTE: * FOR ADULT BLACK MALES AND FEMALES, NORMAL WBC IS 2.9-7.7 K/ML * FOR ADULT BLACK MALES AND FEMALES, NORMAL RBC,HGB, AND HCT IS 5% LESS SOURCE FOR DATA: Yattos 1800 OPERATION MANUAL( AUTOMATED BLOOD COUNTS AND DIFF.) APPENDIX B-3 Neut# 4.3 % 2.0-7.8 [facility] ([facility] CLASSIFICATION CHOLESTEROL FO R ADULTS CHILDREN/ADOLESCENTS* DESIRABLE: <200 MG/DL <170 MG/DL BORDER-LINE HIGH RISK: 200-239 MG/DL 170-199 MG/DL HIGH RISK: >240 MG/DL >200 MG/DL CLASS. FOR PRIMARY LDL CHOL PREVENTION: LDL CHOL-CHILD/ADOLESCENTS* DESIRABLE: <130 MG/DL <110 MG/DL BORDERLINE-HIGH RISK: 130-159 MG/DL 110-129 MG/DL HIGH RISK: >160 MG/DL >130 MG/DL *CHILDREN AND ADOLESCENTS REPRESENTS INDIVIDUALA AGED 2-19 YEARS EXCLUSIVE. CHRONIC KIDNEY DISEASE STAGING PER NKF: MALE [...] mL/min Normal 80 and above >32 mL/min NormalNORMAL RANGES Age WBC RBC HGB HCT MCV PLT Adult M 4.1-10.9 4.20-6.30 12.0-18.0 37.0-51.0 80-97 140-440 Adult F 4.1-10.9 4.04-5.48 12.0-18.0 37.0-51.0 80-97 140-440 0- 1 Yr 5.0-20.0 3.9-5.9 15-18 MV: 44 MV: 91 MV: 277 2-9 Yr. 6.0-17.0 3.8-5.4 11-13 MV: 37 MV: 78 MV: 300 10 Yrs. 5.0-13.0 3.8-5.4 12-15 MV: 39 MV: 80 MV: 250 NOTE: * FOR ADULT BLACK MALES AND FEMALES, NORMAL WBC IS 2.9-7.7 K/ML * FOR ADULT BLACK MALES AND FEMALES, NORMAL RBC,HGB, AND HCT IS 5% LESS SOURCE FOR DATA: Lamoda DYN 1800 OPERATION MANUAL( AUTOMATED BLOOD COUNTS AND DIFF.) APPENDIX B-3 MXD# 0.6 10E3/uL 0.0-1.8 [facility] ([facility] CLASSIFICATION CHOLESTEROL FO R ADULTS CHILDREN/ADOLESCENTS* DESIRABLE: <200 MG/DL <170 MG/DL BORDER-LINE HIGH RISK: 200-239 MG/DL 170-199 MG/DL HIGH RISK: >240 MG/DL >200 MG/DL CLASS. FOR PRIMARY LDL CHOL PREVENTION: LDL CHOL-CHILD/ADOLESCENTS* DESIRABLE: <130 MG/DL <110 MG/DL BORDERLINE-HIGH RISK: 130-159 MG/DL 110-129 MG/DL HIGH RISK: >160 MG/DL >130 MG/DL *CHILDREN AND ADOLESCENTS REPRESENTS INDIVIDUALA AGED 2-19 YEARS EXCLUSIVE. CHRONIC KIDNEY DISEASE STAGING PER NKF: MALE [...] mL/min Normal 80 and above >32 mL/min NormalNORMAL RANGES Age WBC RBC HGB HCT MCV PLT Adult M 4.1-10.9 4.20-6.30 12.0-18.0 37.0-51.0 80-97 140-440 Adult F 4.1-10.9 4.04-5.48 12.0-18.0 37.0-51.0 80-97 140-440 0- 1 Yr 5.0-20.0 3.9-5.9 15-18 MV: 44 MV: 91 MV: 277 2-9 Yr. 6.0-17.0 3.8-5.4 11-13 MV: 37 MV: 78 MV: 300 10 Yrs. 5.0-13.0 3.8-5.4 12-15 MV: 39 MV: 80 MV: 250 NOTE: * FOR ADULT BLACK MALES AND FEMALES, NORMAL WBC IS 2.9-7.7 K/ML * FOR ADULT BLACK MALES AND FEMALES, NORMAL RBC,HGB, AND HCT IS 5% LESS SOURCE FOR DATA: Yattos 1800 OPERATION MANUAL( AUTOMATED BLOOD COUNTS AND DIFF.) APPENDIX B-3 MPV 11.4 fL 9.0-13.0 [facility] CLASSIFICATION CHOLESTEROL FO R ADULTS CHILDREN/ADOLESCENTS* DESIRABLE: <200 MG/DL <170 MG/DL BORDER-LINE HIGH RISK: 200-239 MG/DL 170-199 MG/DL HIGH RISK: >240 MG/DL >200 MG/DL CLASS. FOR PRIMARY LDL CHOL PREVENTION: LDL CHOL-CHILD/ADOLESCENTS* DESIRABLE: <130 MG/DL <110 MG/DL BORDERLINE-HIGH RISK: 130-159 MG/DL 110-129 MG/DL HIGH RISK: >160 MG/DL >130 MG/DL *CHILDREN AND ADOLESCENTS REPRESENTS INDIVIDUALA AGED 2-19 YEARS EXCLUSIVE. CHRONIC KIDNEY DISEASE STAGING PER NKF: MALE [...] mL/min Normal 80 and above >32 mL/min NormalNORMAL RANGES Age WBC RBC HGB HCT MCV PLT Adult M 4.1-10.9 4.20-6.30 12.0-18.0 37.0-51.0 80-97 140-440 Adult F 4.1-10.9 4.04-5.48 12.0-18.0 37.0-51.0 80-97 140-440 0- 1 Yr 5.0-20.0 3.9-5.9 15-18 MV: 44 MV: 91 MV: 277 2-9 Yr. 6.0-17.0 3.8-5.4 11-13 MV: 37 MV: 78 MV: 300 10 Yrs. 5.0-13.0 3.8-5.4 12-15 MV: 39 MV: 80 MV: 250 NOTE: * FOR ADULT BLACK MALES AND FEMALES, NORMAL WBC IS 2.9-7.7 K/ML * FOR ADULT BLACK MALES AND FEMALES, NORMAL RBC,HGB, AND HCT IS 5% LESS SOURCE FOR DATA: Yattos 1800 OPERATION MANUAL( AUTOMATED BLOOD COUNTS AND DIFF.) APPENDIX B-3 ID Date Data Source [id number] 06/20/2019 02:24:00 PM EST [facility] Name Value Range Interpretation Code Description Data Su rce(s) Supporting Document(s) Hemoglobin A1c/Hemoglobin.total in Blood 9.5 % 4.4 - 6.1 H [facility] {A1]{HB] Procedure Social History Code Duration Value Status Description Data Source(s ) Smoking 02/14/2020 12:00:00 AM EDT Patient has never smoked co mpleted Patient has never smoked [facility] ([facility] Vital Signs ID Date Data Source UNK Name Value Range Interpretation Code Description Data Source(s) Oxygen saturation in Arterial blood by Pulse oximetry 96 % 96 % [facility] ([facility] Body mass index (BMI) [Ratio] 35.7 kg/m2 35.7 k g/m2 [facility] ([facility] [place] body weight 130 [lb_av] 130 [lb_av] MED[facility] T ([facility] Body weight 221.00 [lb_av] 221.00 [lb_av] [facility] T ([facility] Body height 66 [in_i] 66 [in_i] [facility] ([facility] 5'6" Respiratory rate 18 /min 18 /min [facility] ( [facility] Heart rate 90 /min 90 /min [facility] ([facility] Body temperature 97.9 [degF] 97.9 [degF] [facility] ([facility] Diastolic blood pressure 52 mm[Hg] 52 mm[Hg] [facility] ([facility] Systolic blood pressure 102 mm[Hg] 102 mm[Hg] M EDENT ([facility] Oxygen saturation in Arterial blood by Pulse oximetry 97 % 97 % [facility] ([facility] (AT Rest), (Room Air) Body mass index (BMI) [Ratio] 36.0 kg/m2 36.0 k g/m2 [facility] ([facility] [place] body weight 130 [lb_av] 130 [lb_av] [facility] T ([facility] Body weight 223.00 [lb_av] 223.00 [lb_av] [facility] T ([facility] Body height 66 [in_i] 66 [in_i] [facility] ([facility] 5'6" Respiratory rate 16 /min 16 /min [facility] ( [facility] Heart rate 68 /min 68 /min [facility] ([facility] Body temperature 98.2 [degF] 98.2 [degF] [facility] ([facility] Diastolic blood pressure 64 mm[Hg] 64 mm[Hg] [facility] ([facility] Systolic blood pressure 124 mm[Hg] 124 mm[Hg] M EDENT ([facility] Oxygen saturation in Arterial blood by Pulse oximetry 97 % 97 % [facility] ([facility] Body mass index (BMI) [Ratio] 36.3 kg/m2 36.3 k g/m2 [facility] ([facility] [place] body weight 130 [lb_av] 130 [lb_av] MED[facility] T ([facility] Body weight 225.00 [lb_av] 225.00 [lb_av] MEDEN T ([facility] Body height 66 [in_i] 66 [in_i] [facility] ([facility] 5'6" Respiratory rate 16 /min 16 /min [facility] ( [facility] Heart rate 58 /min 58 /min [facility] ([facility] Body temperature 97.9 [degF] 97.9 [degF] [facility] ([facility] Diastolic blood pressure 62 mm[Hg] 62 mm[Hg] [facility] ([facility] Systolic blood pressure 120 mm[Hg] 120 mm[Hg] M EDENT ([facility] Oxygen saturation in Arterial blood by Pulse oximetry 97 % 97 % [facility] ([facility] Body mass index (BMI) [Ratio] 36.6 kg/m2 36.6 k g/m2 [facility] ([facility] [place] body weight 130 [lb_av] 130 [lb_av] [facility] T ([facility] Body weight 227.00 [lb_av] 227.00 [lb_av] MED[facility] T ([facility] Body height 66 [in_i] 66 [in_i] [facility] ([facility] 5'6" Respiratory rate 18 /min 18 /min [facility] ( [facility] Heart rate 64 /min 64 /min [facility] ([facility] Body temperature 98.2 [degF] 98.2 [degF] [facility] ([facility] Diastolic blood pressure 60 mm[Hg] 60 mm[Hg] [facility] ([facility] Systolic blood pressure 134 mm[Hg] 134 mm[Hg] M EDENT ([facility] Respiratory rate 16 /min 16 /min [facility] ( [facility] Heart rate 86 /min 86 /min [facility] ([facility] Body temperature 97.1 [degF] 97.1 [degF] [facility] ([facility] Diastolic blood pressure 70 mm[Hg] 70 mm[Hg] [facility] ([facility] Systolic blood pressure 122 mm[Hg] 122 mm[Hg] M EDENT ([facility] Oxygen saturation in Arterial blood by Pulse oximetry 97 % 97 % [facility] ([facility] ([place]), (Room Air) Body mass index (BMI) [Ratio] 36.2 kg/m2 36.2 k g/m2 [facility] ([facility] [place] body weight 130 [lb_av] 130 [lb_av] [facility] T ([facility] Body weight 224.00 [lb_av] 224.00 [lb_av] MED[facility] T ([facility] Body height 66 [in_i] 66 [in_i] [facility] ([facility] 5'6" Oxygen saturation in Arterial blood by Pulse oximetry 95 % 95 % [facility] ([facility] ([place]), (Room Air) Body mass index (BMI) [Ratio] 36.6 kg/m2 36.6 k g/m2 [facility] ([facility] Body weight 227.00 [lb_av] 227.00 [lb_av] [facility] T ([facility] Body height 66 [in_i] 66 [in_i] [facility] ([facility] 5'6" Respiratory rate 20 /min 20 /min [facility] ( [facility] Heart rate 90 /min 90 /min [facility] ([facility] Body temperature 97.6 [degF] 97.6 [degF] [facility] ([facility] Diastolic blood pressure 60 mm[Hg] 60 mm[Hg] [facility] ([facility] Systolic blood pressure 126 mm[Hg] 126 mm[Hg] M EDENT ([facility] Oxygen saturation in Arterial blood by Pulse oximetry 97 % 97 % [facility] ([facility] ([place]), (Room Air) Body mass index (BMI) [Ratio] 36.2 kg/m2 36.2 k g/m2 [facility] ([facility] Body weight 224.00 [lb_av] 224.00 [lb_av] MED[facility] T ([facility] Body height 66 [in_i] 66 [in_i] [facility] ([facility] 5'6" Respiratory rate 18 /min 18 /min [facility] ( [facility] Heart rate 92 /min 92 /min [facility] ([facility] Body temperature 98.6 [degF] 98.6 [degF] [facility] ([facility] Diastolic blood pressure 60 mm[Hg] 60 mm[Hg] [facility] ([facility] Systolic blood pressure 108 mm[Hg] 108 mm[Hg] M EDENT ([facility] Oxygen saturation in Arterial blood by Pulse oximetry 98 % 98 % [facility] ([facility] Body mass index (BMI) [Ratio] 36.3 kg/m2 36.3 k g/m2 [facility] ([facility] Body weight 225.00 [lb_av] 225.00 [lb_av] MED[facility] T ([facility] Body height 66 [in_i] 66 [in_i] [facility] ([facility] 5'6" Respiratory rate 14 /min 14 /min [facility] ( [facility] Heart rate 68 /min 68 /min [facility] ([facility] Body temperature 97.8 [degF] 97.8 [degF] [facility] ([facility] Diastolic blood pressure 74 mm[Hg] 74 mm[Hg] [facility] ([facility] Systolic blood pressure 132 mm[Hg] 132 mm[Hg] M EDVIDAL ([facility] Oxygen saturation in Arterial blood by Pulse oximetry 96 % 96 % [facility] ([facility] Body mass index (BMI) [Ratio] 36.5 kg/m2 36.5 k g/m2 [facility] ([facility] Body weight 226.00 [lb_av] 226.00 [lb_av] MED[facility] T ([facility] Body height 66 [in_i] 66 [in_i] [facility] ([facility] 5'6" Respiratory rate 14 /min 14 /min [facility] ( [facility] Heart rate 70 /min 70 /min [facility] ([facility] Body temperature 97.9 [degF] 97.9 [degF] [facility] ([facility] Diastolic blood pressure 52 mm[Hg] 52 mm[Hg] [facility] ([facility] Systolic blood pressure 124 mm[Hg] 124 mm[Hg] M EDENT ([facility] ID Date Data Source [id number] 07/10/2020 07:56:38 AM [facility] Name Value Range Interpretation Code Description Data Source(s) WEIGHT RECORDED 215.80 pounds 215.80 pounds [facility] Height 68 Inches 068 Inches [facility]
[2020-07-13 16:45] VITALS: O2SAT 93
[2020-07-13] MEDS ORDERED: DEXTROSE 50% 50 ML SYRINGE IV STA (17:07)
[2020-07-13 17:08] LABS: ACETAMINOPHEN LEVEL < 2.0 UG/ML (10.0-30.0); ALBUMIN 2.8 GM/DL (3.2-5.2); ALT/SGPT 59 U/L (12-78); BILIRUBIN,DIRECT 0.2 MG/DL (0.0-0.2); BILIRUBIN,TOTAL 0.5 MG/DL (0.2-1.0); BLOOD UREA NITROGEN 26 MG/DL (7-18); CALCIUM LEVEL 8.4 MG/DL (8.8-10.2); CARBON DIOXIDE LEVEL 26 MEQ/L (21-32); CHLORIDE LEVEL 106 MEQ/L (98-107); CREATININE FOR GFR 1.15 MG/DL (0.55-1.30); ETHYL ALCOHOL (ETHANOL) < 0.003 % (0.000-0.010); GLUCOSE, FASTING 58 MG/DL (70-100); POTASSIUM SERUM 3.8 MEQ/L (3.5-5.1); SALICYLATE LEVEL < 1.7 MG/DL (5.0-30.0); SODIUM LEVEL 140 MEQ/L (136-145); THYROID STIMULATING HORMONE 0.611 uIU/ML (0.358-3.740); TOTAL PROTEIN 6.6 GM/DL (6.4-8.2)
[2020-07-13 17:25] LABS: AMPHETAMINES LEVEL URINE NEGATIVE (NEGATIVE); BARBITURATES URINE NEGATIVE (NEGATIVE); BENZODIAZEPINES URINE NEGATIVE (NEGATIVE); CANNABINOIDS URINE NEGATIVE (NEGATIVE); COCAINE METABOLITE URINE NEGATIVE (NEGATIVE); METHADONE URINE NEGATIVE (NEGATIVE); OPIATES URINE POSITIVE (NEGATIVE); PHENCYCLIDINE URINE NEGATIVE (NEGATIVE)
[2020-07-13] MEDS ORDERED: SERTRALINE HCL 25 MG TABLET PO ONE (18:45)
[2020-07-13] MEDS ORDERED: SODIUM CHLORIDE NASAL 0.65% SPRAY BTL (OCEAN) ONE (20:30)
[2020-07-14] MEDS ORDERED: DEXTROSE 50% 50 ML SYRINGE IV STA (00:02)
[2020-07-14] MEDS ORDERED: MOM 30ML SUSPENSION UDC PO PRN (00:30)
[2020-07-14] MEDS ORDERED: DEXTROSE 50% 50 ML SYRINGE IV PRN (00:30)
[2020-07-14] MEDS ORDERED: D5W/0.9% SODIUM CHLORIDE 1,000 ML IV SCH (00:30)
[2020-07-14] MEDS ORDERED: GLUCAGON INJ 1MG VIAL SC PRN (00:30)
[2020-07-14] MEDS ORDERED: GLUCOSE 4GM CHEW TABLET PO PRN (00:30)
[2020-07-14] MEDS ORDERED: MAALOX 30 ML SUSP *UDC PO PRN (00:30)
--- OUTSIDE RECORDS SUMMARY | 2020-07-14 00:40 | CCD ---
Author Author [facility] Organization [facility] Address Unknown Phone Unavailable Care Team Providers Care Bottle Washing Machine Operator Name Role Phone Barraclough, Michelle PA Unavailable [...] Fish, J Lavern Unavailable Unavailable Amelia SMITH TECHNICAL INSTRUCTOR Unavailable Unavailable Amelia SMITH TECHNICAL INSTRUCTOR Unavailable Unavailable Amelia SMITH TECHNICAL INSTRUCTOR Unavailable Unavailable Amelia SMITH TECHNICAL INSTRUCTOR Unavailable Unavailable Amelia SMITH TECHNICAL INSTRUCTOR Unavailable Unavailable Amelia SMITH TECHNICAL INSTRUCTOR Unavailable Unavailable Amelia SMITH TECHNICAL INSTRUCTOR Unavailable Unavailable SMITH, M ZOE TECHNICAL INSTRUCTOR Unavailable Unavailable SMITH, M ZOE TECHNICAL INSTRUCTOR Unavailable Unavailable SMITH, M ZEO TECHNICAL INSTRUCTOR Unavailable Unavailable SMITH, M ZOE TECHNICAL INSTRUCTOR Unavailable Unavailable SMITH, M ZOE TECHNICAL INSTRUCTOR Unavailable Unavailable SMITH, M ZOE TECHNICAL INSTRUCTOR Unavailable Unavailable SMITH, M ZOE TECHNICAL INSTRUCTOR Unavailable Unavailable SMITH, M ZOE TECHNICAL INSTRUCTOR Unavailable Unavailable SMITH, M ZOE TECHNICAL INSTRUCTOR Unavailable Unavailable SMITH, M ZOE TECHNICAL INSTRUCTOR Unavailable Unavailable SMITH, M ZOE TECHNICAL INSTRUCTOR Unavailable Unavailable SMITH, M ZOE TECHNICAL INSTRUCTOR Unavailable Unavailable SMITH, M ZOE TECHNICAL INSTRUCTOR Unavailable Unavailable SMITH, M ZOE TECHNICAL INSTRUCTOR Unavailable Unavailable SMITH, M ZOE TECHNICAL INSTRUCTOR Unavailable Unavailable SMITH, M ZOE TECHNICAL INSTRUCTOR Unavailable Unavailable SMITH, M ZOE TECHNICAL INSTRUCTOR Unavailable Unavailable SMITH, M ZOE TECHNICAL INSTRUCTOR Unavailable Unavailable SMITH, M ZOE TECHNICAL INSTRUCTOR Unavailable Unavailable SMITH, M ZOE TECHNICAL INSTRUCTOR Unavailable Unavailable SMITH, M ZOE TECHNICAL INSTRUCTOR Unavailable Unavailable SMITH, M ZOE TECHNICAL INSTRUCTOR Unavailable Unavailable SMITH, M ZOE TECHNICAL INSTRUCTOR Unavailable Unavailable SMITH, M ZOE TECHNICAL INSTRUCTOR Unavailable Unavailable SMITH, M ZOE TECHNICAL INSTRUCTOR Unavailable Unavailable SMITH, M ZOE TECHNICAL INSTRUCTOR Unavailable Unavailable SMITH, M ZOE TECHNICAL INSTRUCTOR Unavailable Unavailable SMITH, M ZOE TECHNICAL INSTRUCTOR Unavailable Unavailable SMITH, M ZOE TECHNICAL INSTRUCTOR Unavailable Unavailable SMITH, M ZOE TECHNICAL INSTRUCTOR Unavailable Unavailable SMITH, M ZOE TECHNICAL INSTRUCTOR Unavailable Unavailable SMITH, M ZOE TECHNICAL INSTRUCTOR Unavailable Unavailable SMITH, M ZOE TECHNICAL INSTRUCTOR Unavailable Unavailable SMITH, M ZOE TECHNICAL INSTRUCTOR Unavailable Unavailable SMITH, M ZOE TECHNICAL INSTRUCTOR Unavailable Unavailable SMITH, M ZOE TECHNICAL INSTRUCTOR Unavailable Unavailable SMITH, M ZOE TECHNICAL INSTRUCTOR Unavailable Unavailable SMITH, M ZOE TECHNICAL INSTRUCTOR Unavailable Unavailable SMITH, M ZOE TECHNICAL INSTRUCTOR Unavailable Unavailable SMITH, M ZOE TECHNICAL INSTRUCTOR Unavailable Unavailable SMITH, M ZOE TECHNICAL INSTRUCTOR Unavailable Unavailable SMITH, M ZOE TECHNICAL INSTRUCTOR Unavailable Unavailable SMITH, M ZOE TECHNICAL INSTRUCTOR Unavailable Unavailable SMITH, M ZOE TECHNICAL INSTRUCTOR Unavailable Unavailable SMITH, M ZOE TECHNICAL INSTRUCTOR Unavailable Unavailable SMITH, M ZOE TECHNICAL INSTRUCTOR Unavailable Unavailable SMITH, M ZOE TECHNICAL INSTRUCTOR Unavailable Unavailable SMITH, M ZOE TECHNICAL INSTRUCTOR Unavailable Unavailable SMITH, M ZOE TECHNICAL INSTRUCTOR Unavailable Unavailable SMITH, M ZOE TECHNICAL INSTRUCTOR Unavailable Unavailable SMITH, M ZOE TECHNICAL INSTRUCTOR Unavailable Unavailable HOLLINGSWORTH, C ALEXANDRU Unavailable Unavailable Fish, J Lavern [...] is protected by Article 27-F of the [facility] Public Health law. If you continue you may have access to information: Regarding HIV / AIDS; Provided by facilities licensed or operated by the [facility] Office of Mental Health; or Provided by the [facility] Office for People With Developmental Disabilities. If such information is present, then the following [facility] mandated warning applies: This information has [...] law may result in a fine or usp sentence or both. A general authorization for the release of medical or other information is NOT sufficient authorization for further disc losure. Allergies and Adverse Reactions Type Description Substance Reaction Status Data Source(s ) No Known Allergies No Known Allergies [facility] Encounters Encounter Providers Location Date Indications Data Source(s ) Outpatient Attender: ELLA BELLAMYAttender: ALEXANDRU Bernal ant: Lavern Fish 07/08/2020 05:26:00 PM EST - 07/09/2020 02:50:00 PM [facility] Patient discharged. Outpatient Attender: Lavern FishReferrer: Lavern KevinConsultant: Lavern Fish 06/18/2020 12:20:00 PM EST - 06/18/2020 12:30:00 PM [facility] Outpatient Attender: Lavern Brown [place] [facility] 06/18/2020 08:00:0 0 AM EST [facility] Outpatient Attender: ZOE SMITH NP [place] [facility] 04/23 03:15:00 PM EST [facility] Outpatient Attender: Lavernflores Brown [place] [facility] 03/18/2020 09:20:0 0 AM EDT [facility] ([facility] Outpatient Attender: Lavern FishReferrer: Lavernflores BrownConsultant: Lavern Fish 03/11/2020 11:59:00 AM EDT - 03/11/2020 12:09:[address] [facility] Outpatient Attender: Lavern Brown [place] [facility] 01/30/2020 09:15:0 0 AM EDT [facility] ([facility] Outpatient Attender: Michelle DESIR [facility] 12/28/2019 09:30:00 AM EDT [facility] Outpatient Attender: Lavern BrownReferrer: Lavernflores BrownConsultant: Lavern Fish 12/17/2019 05:15:00 PM EDT - 12/17/2019 05:25:[address] [facility] Outpatient Attender: Lavern Brown [place] [facility] 12/17/2019 10:30:0 0 AM EDT [facility] Outpatient Attender: Lavern BrownReferrer: Lavern BrownConsultant: Lavern Brown 09/17/2019 04:56:00 PM EDT - 09/17/2019 05:06:[address] [facility] Outpatient Attender: Lavern Brown [place] [facility] 09/17/2019 01:00:0 0 PM EDT [facility] ([facility] Outpatient Attender: Michelle Bee [facility] 08/16/2019 08:00:00 AM EST [facility] ([facility] Outpatient Attender: Michelle DESIR [place] [facility] 08/02/2019 12:30:00 PM EST [facility] ([facility] Outpatient Attender: Lavern BrownReferrer: Lavern BrownConsultant: Lavern Brown 06/20/2019 01:21:00 PM EST - 06/20/2019 01:31:[address] [facility] Outpatient Attender: Lavern Brown [place] [facility] 06/20/2019 07:45:0 0 AM EST [facility] [...] 03/18/2020 12:00:00 AM EDT ORAL active [facility] ([facility] cefdinir 300 MG Oral Capsule Cefdinir 04/19/2019 12:00:00 AM EST ORAL completed [facility] Clindamycin 150 MG Oral Capsule Clindamycin HCL 04/09/2019 12:00:00 A M EDT completed [facility] ([facility] Insurance Providers Payer name Policy type / Coverage type Policy ID Covered democrat ID Covered democrat's relationship to gregory Policy Gregory Plan Information [facility] [id number] SP [id number] UN[employer] MEDICARE COMPLETE - O/P [id number] 18 [id number] [employer] MEDICARE O/P [id number] 18 [id number] [facility] [id number] S [id number] [facility] [id number] SP [id number] [employer] MEDICARE-O/P [id number] 18 [id number] Problems, Conditions, and Diagnoses Code Display Name Description Problem Type Effective Dates Data Source(s) E119 Type 2 diabetes mellitus without complic ations Type 2 diabetes mellitus without complications Diagnosis 06/18/2020 12:20:00 PM [facility] Hospital Results ID Date Data Source [id number] 07/10/2020 06:04:00 [place] [address] RESPIRATORY CARE REPORT ==== ---------NAME------- NUMBER SEX AGE ADMIT DISC. XRAY# F/C TYPEBACON SID L [id number] F 74 07/08/20 07/09/20 [id number] PALOMO O/P DATE OF : 1945 M/R# [id number] #: [id number] CCU1C LOCATION: EMERGENCY DEPT EKG 55051 COMP LETE:07/09/20 01:52 VMT 29279 PHYSICIAN: JOSESITO Fitzgerald Name Value Range Interpretation Code Description Data Su rce(s) Supporting Document(s) ID Date Data Source [id number] 07/09/2020 09:48:00 AM EST [facility] [address] [place] [address] PHONE: [phone] FAX: [phone] Name .................. : ROSALBA Jimenez Acct Number.................. : [id number] ROOM. ................. : [facility] MR Number ................... : [id number] Stay type ............. : O/P Discharge Date......... ... : Admit Date ......... : 07/08/20 Admit Phys .................... : JOSESITO THOMPSON Date of ....... : 1945 Family Phys ................... : KEVIN PLEITEZ Phone .................. : [phone] Age ................................ : 74 Film# .................. .:[id number] Sex ................................. : F Unsigned transcriptions are preliminary reports and do not represent a medical or legal document CT THORAX W/O CONTRAST 48593 COMPLETE:07/08/20 20:16 3043 (REASON FOR CHEST: DYSPNEA [...] By Gerardo Coker M.D. , 07/09/20 09:48, [facility] Transcribe Initials: DZ , Transcribe Date: 07/08/20 21:34, Dictation Date: Copy for: KEVIN PUCKETT via fax Copy for: EMERGENCY DEPT via modem Copy for: [address] [place] [address] REC Page 1 of 1 Name Value Range Interpretation Code Description Data Su rce(s) Supporting Document(s) ID Date Data Source [id number] 07/09/2020 09:48:00 [place] [address] PHONE: [phone] FAX: [phone] Name .................. : ROSALBA Jimenez Acct Number.................. : [id number] ROOM. ................. : CCU1C MR Number ................... : [id number] Stay type ............. : O/P Discharge Date......... ... : Admit Date ......... : 07/08/20 Admit Phys .................... : JOSESITO THOMPSON Date of ....... : 1945 Family Phys ................... : KEVIN PLEITEZ Phone ..... ............. : [phone] Age ................................ : 74 Film# .................. .:[id number] Sex ................................. : F Unsigned t ranscriptions are preliminary reports and do not represent a medical or legal document CHEST PORTABLE [id number] COMPLETE:07/08/20 18:48 JOSE 3040 Reason(s): Congestion PORTABLE CHEST X-RAY: INDICATION: Congestion. FINDINGS: The lungs are moderately expanded without focal air space disease, pleural disease or pneumothorax. The cardiac silhouette is normal in size and contour. No acute osseous abnormality. IMPRESSION: No acute pulmonary process. Electronically Reviewed and Signed By Gerardo Coker M.D. , 07/09/20 09:48, [facility] Transcribe Initials: VALERIA , Transcribe Date: 07/08/20 20:47, Dictation Date: Copy for: KEVIN LAVERN via fax Copy for: EMERGENCY DEPT via modem Copy for: [address] [place] [address] REC Page 1 of 1 Name Value Range Interpretation Code Description Data Su rce(s) Supporting Document(s) ID Date Data Source [id number] 07/10/2020 06:20:00 AM [facility] Name Value Range Interpretation Code Description Data Su rce(s) Supporting Document(s) Creatine kinase.MB [Mass/volume] in Serum or Plasma 5.3 ng/mL 0.0-5. 3 [facility] ID Date Data Source [id number] 07/09/2020 08:58:00 AM [facility] Name Value Range Interpretation Code Description Data Su rce(s) Supporting Document(s) COMPREHENSIVE METABOLIC PANEL [facility] COMPREHENSIVE METABOLIC PANEL Sodium [Moles/volume] in Serum or Plasma 141 mEq/L 134 - 153 [facility] Potassium [Moles/volume] in Serum or Plasma 3.8 mEq/L 3.6 - 5.0 [facility] Chloride [Moles/volume] in Serum or Plasma 105 mEq/L 98 - 107 [facility] Carbon dioxide, total [Moles/volume] in Serum or Plasma 24 MEQ/L 22 - 30 [facility] Glucose [Mass/volume] in Serum or Plasma 87 MG/DL 70 - 99 [facility] BUN 24 MG/DL 7 - 21 H [facility] Creatinine [Mass/volume] in Serum or Plasma 1.0 MG/DL 0.7 - 1.5 [facility] BUN/CREAT 24 8 - 27 [facility] Protein [Mass/volume] in Serum or Plasma 6.1 G/DL 6.3 - 8.[address] [facility] Albumin [Mass/volume] in Serum or Plasma 3.7 G/DL 3.9 - 5.[address] [facility] Globulin [Mass/volume] in Serum by calculation 2.4 GM/DL 2.4 - 3.2 [facility] A/G RATIO 1.5 0.8 - 2.0 [facility] Calcium [Mass/volume] in Serum or Plasma 8.5 MG/DL 8.4 - 10.2 [facility] Bilirubin.total [Mass/volume] in Serum or Plasma <0.7 MG/DL 0.2 - 1.3 [facility] Alkaline phosphatase [Enzymatic activity/volume] in Serum or Plasma 64 U/L 38 - 126 [facility] Aspartate aminotransferase [Enzymatic activity/volume] in Serum or Plasma 22 U/L 5 - 40 [facility] Alanine aminotransferase [Enzymatic activity/volume] in Seru m or Plasma 20 U/L 7 - 56 [facility] Anion gap 3 in Serum or Plasma 12.0 mmol/L 8.0 - 16.0 [facility] AGE 74 yrs [facility] al NON-AA GFR 57 mL/min [facility] A[facility] AMER GFR >60 [facility] Male GFR In terprentation 20-49 [...] >32 mL/min Normal ID Date Data Source [id number] 07/09/2020 08:51:00 AM [facility] Name Value Range Interpretation Code Description Data Su rce(s) Supporting Document(s) TROPONIN T <0.01 NG/ML 0.00 - 0.10 [facility]ital TROPONIN T0.1 ng/ml Recommended as the c linical threshold value forTroponin T. ID Date Data Source [id number] 07/09/2020 08:49:00 AM [facility] Name Value Range Interpretation Code Description Data Su rce(s) Supporting Document(s) Magnesium [Mass/volume] in Serum or Plasma 2.0 MG/DL 1.7 - 2.2 [facility] ID Date Data Source [id number] 07/09/2020 08:49:00 AM [facility] Name Value Range Interpretation Code Description Data Su rce(s) Supporting Document(s) Phosphate [Mass/volume] in Serum or Plasma 3.8 MG/DL 2.5 - 4.5 [facility] ID Date Data Source [id number] 07/09/2020 08:03:00 AM [facility] Value Range Interpretation Code Description Data Su rce(s) Supporting Document(s) CBC W/AUTOMATED DIFF [facility] COMPLETE BLOOD COUNT Leukocytes [#/volume] in Blood by Automated count 6.1 10^3/uL 4.2 - [address] [facility] Erythrocytes [#/volume] in Blood by Automated count 4.46 10^6/uL 4. 20 - 5.40 [facility] Hemoglobin [Mass/volume] in Blood 13.6 g/dL 12.0 - 16.0 [facility] Hematocrit [Volume Fraction] of Blood by Automated count 40.8 % 3 7.0 - 47.0 [facility] Erythrocyte mean corpuscular volume [Entitic volume] by Auto mated count 91.5 fL 81.0 - 101 [facility] Erythrocyte mean corpuscular hemoglobin [Entitic mass] by Automated count 30.5 pg 27.0 - 34.0 [facility] Erythrocyte mean corpuscular hemoglobin concentration [Mass/volume] by Automated count 33.3 g/dL 31.0 - 36.0 [facility] Erythrocyte distribution width [Ratio] by Automated count 13.4 % 11.5 - 14.5 [facility] Platelets [#/volume] in Blood by Automated count 167 10^3/uL 150 - [address] [facility] Platelet mean volume [Entitic volume] in Blood by Automated count 11.1 fL 7.4 - 10.[address] [facility] Neutrophils/100 leukocytes in Blood by Automated count 67.1 % 37. 0 - 80.0 [facility] Lymphocytes/100 leukocytes in Blood by Manual count 18.1 % 25.0 - 40.[address] [facility] Monocytes/100 leukocytes in Blood by Automated count 13.7 % 3.0 - 8.[address] [facility] Eosinophils/100 leukocytes in Blood by Automated count 0.2 % 0.0 - 7.0 [facility] Basophils/100 leukocytes in Blood by Automated count 0.7 % 0.0 - 2.5 [facility] %IG 0.2 % 0.0 - 0.0 [facility] %NRBC 0.0 % 0.0 - 0.0 [facility] al Neutrophils [#/volume] in Blood by Automated count 4.08 10^3/uL 2.00 - 6.90 [facility] Lymphocytes [#/volume] in Blood by Automated count 1.10 10^3/uL 0.60 - 3.40 [facility] Monocytes [#/volume] in Blood by Automated count 0.83 10^3/uL 0.00 - 0.90 [facility] Eosinophils [#/volume] in Blood by Automated count 0.01 10^3/uL 0.00 - 0.70 [facility] Basophils [#/volume] in Blood by Automated count 0.04 10^3/uL 0.00 - 0.20 [facility] #IG 0.01 10^3/uL 0.00 - 0.10 [facility] #NRBC 0.00 10^3/uL 0.00 - 0.00 [facility] MANUAL DIFF NOT INDICATED [facility] RBC MORPH NOT INDICATED [facility] ID Date Data Source [id number] 07/08/2020 05:26:[address] [facility] [address] [facility] Emergency Department [address] [place] [address] Phone #: ext- [phone] 07/08/2020 17:26 Patient: [...] Alexandru Christensen ; Manan RN [address] [facility] Emergency Department [address] [place] [address] Phone #: ext- [phone] 07/08/2020 17:26 Patient: SID NAVARRETE Sex: F : 1945 Age: 74y(Oxygen?(No)) Reason for Study: CongestionMEDICATION/IV/DRIP/FLUID ORDERSOrder Description Priority Entered Acknowledged InitialedAcetaminophen PO 17:51 07/08/2020 18:04 Aqjov028 mg (NOW x1) Alexandru Hollingsworth ; Manan RNZithromax IVPB 500 18:58 07/08/2020 19:16 Petermg X1 Dose: 500 Alexandru Hollingsworth ; Manan RNmg with DextroseIntravenous 250 mL(NOW x1)GENERAL ORDERSOrder Description Priority Entered Acknowledged InitialedEKG 17:51 07/08/2020 17:51 [place] Alexandru Hollingsworth ; digital marketing executiveJuan Rao [id number] - 19:05 07/08/2020 19:15 MalcolmHospitalist Alexandru Hollingsworth ; Manan LEVINE[Electronically signed by Malcolm Hinkle RN (20:55 07/08/2020)][Electronically signed by Alexandru Hollingsworth (23:52 07/08/2020)][Electronically locked by Malcolm Hinkle RN (20:55 07/08/2020)] Name Value Range Interpretation Code Description Data Su rce(s) Supporting Document(s) ID Date Data Source [id number] 07/08/2020 05:26:[address] [facility] [address] [facility] Emergency Department [address] [place] [address] Phone #: ext- [phone] 07/08/2020 17:26 Patient: [...] to the patient:None. [address] [facility] Emergency Department [address] [place] [address] Phone #: ext- [phone] 07/08/2020 17:26 Patient: SID NAVARRETE Sex: F : 1945 Age: 74y Name Value Range Interpretation Code Description Data Su rce(s) Supporting Document(s) ID Date Data Source [id number] 07/08/2020 05:26:00 PM [facility] [address] [facility] Emergency Department [address] [place] [address] Phone #: ext- [phone] 07/08/2020 17:26 Patient: [...] rce(s) Supporting Document(s) ID Date Data Source [id number] 07/08/2020 05:26:00 PM [facility] [address] [facility] Emergency Department [address] [place] [address] Phone #: ext- [phone] 07/08/2020 17:26 Patient: SID NAVARRETE Sex: F : 1945 Age: 74yCoronavirus COVID-19 with pneumonia.Acute ischemic cardiomyopathy.(Electronically signed by Alexandru Hollingsworth 07/08/2020 23:52) Name Value Range Interpretation Code Description Data Su rce(s) Supporting Document(s) ID Date Data Source [id number] 07/08/2020 05:26:[address] [facility] 1 Clinical Report - Nurses [facility] Emergency Department [address] [place] [address] Phone #: ext- [phone] 07/08/2020 17:26 Patient: SID NAVARRETE Sex: F : 1945 Age: 74yTRIAGEArrived by EMS. Historian: patient. Unaccompanied.Acuity: LEVEL 3.Chief Complaint: MUSCLE ACHES (cough shaky).Alert.Onset. (several days). She has had a cough. She has had difficulty breathing (with activity).Treatment KILN CLEANER:Took Tylenol.SEPSIS SCREEN: SIRS SCREEN NEGATIVE. SEPSIS SCREEN [...] R.N.PROBLEMS:Hypertension.Hypercholesterolemia.Diabetes Mellitus. 2 Clinical Report - Nurses [facility] Emergency Department [address] [place] [address] Phone #: ext- [phone] 07/08/2020 17:26 [id number] Sex: F : 1945 Age: 74yArthritis.GERD. --17:32 [...] Alexandru Hollingsworth.Interventions 3 Clinical Report - Nurses [facility] Emergency Department [address] [place] [address] Phone #: ext- [phone] 07/08/2020 17:26 Patient: SID NAVARRETE [facility]#: [id number] Sex: F : 1945 Age: 74y Identification [...] an 20gangiocath. --17:37 07/08/20 Madai Tripp R.N. quality assurance monitor body and NIBP monitor placed on patient; monitor alarms on. Patient gowned. Reassurance given. Two patient identifiers checked. Call light placed in reach. Side rails up x 2. Bed placed in lowest position. Brakes of bed on. Patient ready for evaluation. --17:37 07/08/20 Madai Tripp R.N. EKG time: (17:31 07/08/2020). EKG was performed by a tech and shown to the ED physician. --17:42 07/08/20 [place] digital marketing executiveJuan ER Tech1 Patient ID band checked for [...] Hinkle RN 4 Clinical Report - Nurses [facility] Emergency Department [address] [place] [address] Phone #: ext- [phone] 07/08/2020 17:26 Patient: [...] admit pt to AIU). --19:19 07/08/20 Malcolm Hinkle RN 19:53 07/08/20. BP: 157/75. MAP: 102. [...] Hinkle RN 5 Clinical Report - Nurses [facility] Emergency Department [address] [place] [address] Phone #: ext- [phone] 07/08/2020 17:26 Patient: SID NAVARRETE Sex: F : 1945 Age: 74y Name Value Range Interpretation Code Description Data Su rce(s) Supporting Document(s) ID Date Data Source [id number] 07/08/2020 05:26:[address] [facility] 1 Clinical Report - Physicians/Mid Levels [facility] Emergency Department [address] [place] [address] Phone #: ext- [phone] 07/08/2020 17:26 Patient: [...] day. 2 Clinical Report - Physicians/Mid Levels [facility] Emergency Department [address] [place] [address] Phone #: ext- [phone] 07/08/2020 17:26 Patient: [...] (NORMAL: NEGAT 3 Clinical Report - [facility]icians[facility] Emergency Department [address] [place] [address] Phone #: ext- [phone] 07/08/2020 17:26 Patient: SID NAVARRETE Sex: F : 1945 Age: 74y INFLUENZA B NEGATIVE (NORMAL: NEGAT INFLUENZA A REENTER NEGATIVE (NORMAL: NEGAT INFLUENZA B REENTER NEGATIVE (NORMAL: NEGAT PROCEDURAL CONTROL VALID KIT LOT # _[id number] 07/08/20.DW . KIT EXP DATE _79-26-61 78/26/21.DW .The Influenza A utilizing an isothermal nucleic [...] # _[id number] 07/08/20.1825.DW . KIT EXP DATE _98-79-40 65/26/21.1825.DW . NORMAL RANGE IS NOT DETECTEDNEGATIVE RESULTS SHOULD BE TREATEDAS PRESUMPTIVE AND, IF INCONSISTENT WITHCLINICAL SIGNS AND SYMPTOMS OR NECESSARY FOR PATIENT MANAGEMENT, SHOULDBETESTED WITH DIFFERENT AUTHORIZED OR CLEARED MOLECULAR TESTS. NEGATIVE RESULTSDO NOT PRECLUDE [id number] AND SHOULD NOT BE USED THE SOLE [...] Male GFR Interprentation 20-49 yrs >60 mL/min Zhpwcz75-37 yrs >56 mL/min Normal 60-69 yrs >49 mL/min Normal 70-79yrs>42 mL/min Normal 80 and above >35 mL/min Normal Female GFRInterpretation 20-39 yrs >60 mL/min Normal 40-49 yrs >58 mL/minNormal 50-59 yrs >51 mL/min Normal 60-69 yrs >45 mL/min Msgcch54-75 yrs >39 mL/min Normal 80 and above [...] 34.0) 4 Clinical Report - Physicians/Mid Levels [facility] Emergency Department [address] [place], [place] [address] Phone #: ext- [phone] 07/08/2020 17:26 Patient: [...] NOT INDICATED BNP: (JESUS: 07/08/2020 17:40) ( [facility] 07/08/2020 18:38) Final results Test Result Flag Units (Reference) BNP 120 PG/ML (0 - 125) Troponin-T: (JESUS: 07/08/2020 17:40) ( [facility] 07/08/2020 18:31) Final results Test Result Flag Units (Reference) TROPONIN T <0.01 NG/ML (0.00 - 0.10) TROPONIN T0.1 ng/ml Recommended as the clinical threshold value forTroponin T. TSH: (JESUS: 07/08/2020 17:40) ( [facility] 07/08/2020 18:38) Final results Test Result Flag Units (Reference) TSH 0.77 uIU/mL (0.47 - 5.01) Lactic Acid: (JESUS: 07/08/2020 17:40) ( [facility] 07/08/2020 18:05) Final results Test Result Flag Units (Reference) LACTIC ACID 1.7 MMOL/L (0.2 - 2.2) Chest Portable 1 View: (JESUS: 07/08/2020 17:51) ( [facility] 07/08/2020 18:49) In Progress CHEST PORTABLE [...] ordered. 5 Clinical Report - Physicians/Mid Levels [facility] Emergency Department [address] [place] [address] Phone #: ext- [phone] 07/08/2020 17:26 Patient: [...] rce(s) Supporting Document(s) ID Date Data Source [id number] 07/08/2020 05:26:[address] [facility] Addenda for SID NAVARRETE VisitID: [id number] Date: 19:45Medication reconciliation request faxed to [facility]; Overview faxed to [facility](Electronically signed by Jesse Hinkle - 07/08/2020 19:45) Name Value Range Interpretation Code Description Data Su rce(s) Supporting Document(s) ID Date Data Source [id number] 07/10/2020 06:21:[address] [facility] Name Value Range Interpretation Code Description Data [facility](s) Supporting Document(s) Creatine kinase.MB [Mass/volume] in Serum or Plasma 4.8 ng/mL 0.0-5. 3 [facility] ID Date Data Source [id number] 07/09/2020 12:10:[address] [facility] Name Value Range Interpretation Code Description Data [facility] rce(s) Supporting Document(s) TROPONIN T <0.01 NG/ML 0.00 - 0.10 [facility] TROPONIN T0.1 ng/ml Recommended as the c linical threshold value forTroponin T. ID Date Data Source [id number] 07/08/2020 07:51:[address] [facility] Name Value Range Interpretation Code Description Data [facility](s) Supporting Document(s) Influenza virus A Ag [Presence] in Nasopharynx by Immunoassa y NEGATIVE NORMAL: NEGATIVE [facility] Influenza virus B Ag [Presence] in Nasopharynx by Immunoassa y NEGATIVE NORMAL: NEGATIVE [facility] NEGATIVENEGATIVE PROCEDURAL CO NTROL VALID KIT LOT # _[id number] 07/08/20.DW . KIT EXP DATE _99-59-84 07/08/20.DW .The Influenza A & B assay is a rapid molecular in vitro diagnostic testutilizing an isothermal nucleic acid amplification technology for thequalitative detection of influenza A and B viral RNA.Negative results do not preclude influenza virus infection and should not beused as the sole basis for diagnosis, treatment or other patient managementdecisions. ID Date Data Source [id number] 07/08/2020 05:48:00 PM EST [facility] Name Value Range Interpretation Code Description Data [facility](s) Supporting Document(s) COVID19 Case rprt DETECTED [facility] This lab was ordered by [facility] and reported by [facility]. ID Date Data Source [id number] 07/08/2020 06:26:00 PM [facility] DETECTEDDETECTED{ PROCEDURAL C ONTROL VALID KIT LOT # _[id number] 07/08/20.DW . KIT EXP DATE _04-60-27 07/08/20.DW . NORMAL RANGE IS NOT DETECTEDNEGATIVE [...] rce(s) Supporting Document(s) ID Date Data Source [id number] 07/10/2020 07:56:00 AM [facility] Name Value Range Interpretation Code Description Data Su rce(s) Supporting Document(s) C reactive protein [Mass/volume] in Serum or Plasma by High sensitivity method 46.25 MG/L 1.00 - 3.[address] [facility] CDC/[facility] HS-CRP CUT-OFF: RELATIVE RISK: <1.0 mg/L Low 1.0 - 3.0 mg/L Average >3.0 mg/L High Optimally, the average of HS-CRP results repeated two weeks apart should be used for risk assessment. ID Date Data Source [id number] 07/10/2020 06:20:00 AM [facility] Name Value Range Interpretation Code Description Data Su rce(s) Supporting Document(s) Creatine kinase.MB [Mass/volume] in Serum or Plasma 3.7 ng/mL 0.0-5. 3 [facility] ID Date Data Source [id number] 07/08/2020 06:38:00 PM [facility] Name Value Range Interpretation Code Description Data Su rce(s) Supporting Document(s) Thyrotropin [Units/volume] in Serum or Plasma by Detec tion limit <= 0.05 mIU/L 0.77 uIU/mL 0.47 - 5.01 [facility] ID Date Data Source [id number] 07/08/2020 06:38:00 PM [facility] Name Value Range Interpretation Code Description Data Su rce(s) Supporting Document(s) BNP 120 PG/ML 0 - 125 [facility] al ID Date Data Source [id number] 07/08/2020 06:31:[address] [facility] Name Value Range Interpretation Code Description Data Su rce(s) Supporting Document(s) TROPONIN T <0.01 NG/ML 0.00 - 0.10 [facility] TROPONIN T0.1 ng/ml Recommended as the c linical threshold value forTroponin T. ID Date Data Source [id number] 07/08/2020 06:23:00 PM EST [facility] Name Value Range Interpretation Code Description Data [facility](s) Supporting Document(s) BASIC METABOLIC PANEL [facility] BASIC METABOLIC PANEL Sodium [Moles/volume] in Serum or Plasma 135 mEq/L 134 - 153 [facility] Potassium [Moles/volume] in Serum or Plasma 3.9 mEq/L 3.6 - 5.0 [facility] Chloride [Moles/volume] in Serum or Plasma 101 mEq/L 98 - 107 [facility] Carbon dioxide, total [Moles/volume] in Serum or Plasma 21 MEQ/L 22 - [address] [facility] Glucose [Mass/volume] in Serum or Plasma 261 MG/DL 70 - [address] [facility] BUN 23 MG/DL 7 - 21 H [facility] Creatinine [Mass/volume] in Serum or Plasma 1.0 MG/DL 0.7 - 1.5 [facility] BUN/CREAT 23 8 - 27 [facility] Calcium [Mass/volume] in Serum or Plasma 8.3 MG/DL 8.4 - 10.[address] [facility] Anion gap 3 in Serum or Plasma 13.0 mmol/L 8.0 - 16.0 [facility] AGE 74 yrs [facility] al AFR AMER GFR >60 [facility] NON-AA GFR 57 mL/min [facility] GFR Inter prentation 20-49 yrs [...] >32 mL/min Normal ID Date Data Source [id number] 07/08/2020 06:06:[address] [facility] Name Value Range Interpretation Code Description Data Su rce(s) Supporting Document(s) CBC W/AUTOMATED DIFF [facility] COMPLETE BLOOD COUNT Leukocytes [#/volume] in Blood by Automated count 9.9 10^3/uL 4.2 - [address] [facility] Erythrocytes [#/volume] in Blood by Automated count 4.61 10^6/uL 4. 20 - 5.40 [facility] Hemoglobin [Mass/volume] in Blood 14.0 g/dL 12.0 - 16.0 [facility] Hematocrit [Volume Fraction] of Blood by Automated count 42.0 % 3 7.0 - 47.0 [facility] Erythrocyte mean corpuscular volume [Entitic volume] by Auto mated count 91.1 fL 81.0 - 101 [facility] Erythrocyte mean corpuscular hemoglobin [Entitic mass] by Automated count 30.4 pg 27.0 - 34.0 [facility] Erythrocyte mean corpuscular hemoglobin concentration [Mass/volume] by Automated count 33.3 g/dL 31.0 - 36.0 [facility] Erythrocyte distribution width [Ratio] by Automated count 13.4 % 11.5 - 14.5 [facility] Platelets [#/volume] in Blood by Automated count 163 10^3/uL 150 - [address] [facility] Platelet mean volume [Entitic volume] in Blood by Automated count 11.0 fL 7.4 - 10.[address] [facility] Neutrophils/100 leukocytes in Blood by Automated count 81.8 % 37. 0 - 80.[address] [facility] Lymphocytes/100 leukocytes in Blood by Manual count 7.7 % 25.0 - 40.[address] [facility] Monocytes/100 leukocytes in Blood by Automated count 9.5 % 3.0 - 8.[address] [facility] Eosinophils/100 leukocytes in Blood by Automated count 0.3 % 0.0 - 7.0 [facility] Basophils/100 leukocytes in Blood by Automated count 0.4 % 0.0 - 2.5 [facility] %IG 0.3 % 0.0 - 0.0 H [facility] %NRBC 0.0 % 0.0 - 0.0 [facility] al Neutrophils [#/volume] in Blood by Automated count 8.10 10^3/uL 2.00 - 6.[address] [facility] Lymphocytes [#/volume] in Blood by Automated count 0.76 10^3/uL 0.60 - 3.40 [facility] Monocytes [#/volume] in Blood by Automated count 0.94 10^3/uL 0.00 - 0.[address] [facility] Eosinophils [#/volume] in Blood by Automated count 0.03 10^3/uL 0.00 - 0.70 [facility] Basophils [#/volume] in Blood by Automated count 0.04 10^3/uL 0.00 - 0.20 [facility] #IG 0.03 10^3/uL 0.00 - 0.10 [facility] #NRBC 0.00 10^3/uL 0.00 - 0.00 [facility] MANUAL DIFF NOT INDICATED [facility] RBC MORPH NOT INDICATED [facility] spital ID Date Data Source [id number] 07/08/2020 06:05:[address] [facility] Name Value Range Interpretation Code Description Data Su rce(s) Supporting Document(s) Lactate [Moles/volume] in Serum or Plasma 1.7 MMOL/L 0.2 - 2.2 [facility] ID Date Data Source [id number] 06/18/2020 09:45:00 AM EST [facility] Name Value Range Interpretation Code Description Data Su rce(s) Supporting Document(s) Alb 10 mg/L 1-30 [facility] ([facility] A/C Ratio Laboratory test result ME DENT ([facility] Creatinine, Urine 50 mg/dL 10-300 [facility] ([facility] ID Date Data Source [id number] 06/18/2020 09:44:00 AM EST [facility] ([facility] Name Value Range Interpretation Code Description Data Su rce(s) Supporting Document(s) Color Laboratory test result ALLEGRA ([facility] NORMAL RANGES Age WBC [...] HCT IS 5% LESS SOURCE FOR DATA: Bubbly 1800 OPERATION MANUAL( AUTOMATED BLOOD COUNTS AND [...] HCT IS 5% LESS SOURCE FOR DATA: Bubbly 1800 OPERATION MANUAL( AUTOMATED BLOOD COUNTS AND [...] HCT IS 5% LESS SOURCE FOR DATA: Bubbly 1800 OPERATION MANUAL( AUTOMATED BLOOD COUNTS AND [...] 2-19 YEARS EXCLUSIVE. Clarity Laboratory test result [facility] ([facility] NORMAL RANGES Age WBC [...] HCT IS 5% LESS SOURCE FOR DATA: Bubbly 1800 OPERATION MANUAL( AUTOMATED BLOOD COUNTS AND [...] 2-19 YEARS EXCLUSIVE. Ketone Laboratory test result [facility] ([facility] NORMAL RANGES [...] HCT IS 5% LESS SOURCE FOR DATA: Bubbly 1800 OPERATION MANUAL( AUTOMATED BLOOD COUNTS AND [...] HCT IS 5% LESS SOURCE FOR DATA: Bubbly 1800 OPERATION MANUAL( AUTOMATED BLOOD COUNTS AND [...] - Ua Laboratory test result ME SALTER ([facility] NORMAL RANGES Age [...] HCT IS 5% LESS SOURCE FOR DATA: Bubbly 1800 OPERATION MANUAL( AUTOMATED BLOOD COUNTS AND [...] HCT IS 5% LESS SOURCE FOR DATA: Bubbly 1800 OPERATION MANUAL( AUTOMATED BLOOD COUNTS AND [...] HCT IS 5% LESS SOURCE FOR DATA: Bubbly 1800 OPERATION MANUAL( AUTOMATED BLOOD COUNTS AND [...] 2-19 YEARS EXCLUSIVE. Nitrite Laboratory test result [facility] ([facility] NORMAL RANGES Age [...] HCT IS 5% LESS SOURCE FOR DATA: Bubbly 1800 OPERATION MANUAL( AUTOMATED BLOOD COUNTS AND [...] HCT IS 5% LESS SOURCE FOR DATA: Bubbly 1800 OPERATION MANUAL( AUTOMATED BLOOD COUNTS AND [...] 2-19 YEARS EXCLUSIVE. ID Date Data Source [id number] 06/18/2020 09:44:00 AM EST [facility] ([facility] [...] HCT IS 5% LESS SOURCE FOR DATA: Bubbly 1800 OPERATION MANUAL( AUTOMATED BLOOD COUNTS AND [...] 2-19 YEARS EXCLUSIVE. Chol 146 mg/dL 0-200 [facility] ([facility] NORMAL [...] HCT IS 5% LESS SOURCE FOR DATA: Bubbly 1800 OPERATION MANUAL( AUTOMATED BLOOD COUNTS AND [...] 2-19 YEARS EXCLUSIVE. Cho/HDL Ratio 3.5 CALC [facility] ([facility] NORMAL [...] HCT IS 5% LESS SOURCE FOR DATA: Bubbly 1800 OPERATION MANUAL( AUTOMATED BLOOD COUNTS AND [...] HCT IS 5% LESS SOURCE FOR DATA: Bubbly 1800 OPERATION MANUAL( AUTOMATED BLOOD COUNTS AND [...] HCT IS 5% LESS SOURCE FOR DATA: Bubbly 1800 OPERATION MANUAL( AUTOMATED BLOOD COUNTS AND [...] 2-19 YEARS EXCLUSIVE. ID Date Data Source [id number] 06/18/2020 09:44:00 AM EST [facility] ([facility] Name Value Range Interpretation Code Description Data Su rce(s) Supporting Document(s) Creatine kinase [Enzymatic activity/volume] in Serum or Plasma 121 U/L 26-192 [facility] ([facility] NORMAL RANGES Age [...] HCT IS 5% LESS SOURCE FOR DATA: Bubbly 1800 OPERATION MANUAL( AUTOMATED BLOOD COUNTS AND [...] 2-19 YEARS EXCLUSIVE. ID Date Data Source [id number] 06/18/2020 09:44:00 AM EST [facility] ([facility] [...] HCT IS 5% LESS SOURCE FOR DATA: Bioxodes DYN 1800 OPERATION MANUAL( AUTOMATED BLOOD COUNTS [...] HCT IS 5% LESS SOURCE FOR DATA: Bubbly 1800 OPERATION MANUAL( AUTOMATED BLOOD COUNTS AND [...] HCT IS 5% LESS SOURCE FOR DATA: Bubbly 1800 OPERATION MANUAL( AUTOMATED BLOOD COUNTS AND [...] 2-19 YEARS EXCLUSIVE. BUN/Creatinine Ratio 22.5 CALC [place] ([facility] NORMAL RANGES Age WBC [...] 2-19 YEARS EXCLUSIVE. K 4.3 mmol/L 3.5-5.1 [facility] ([facility] NORMAL [...] HCT IS 5% LESS SOURCE FOR DATA: Bubbly 1800 OPERATION MANUAL( AUTOMATED BLOOD COUNTS AND [...] 2-19 YEARS EXCLUSIVE. Na 140 mmol/L 136-145 [facility] ([facility] NORMAL [...] HCT IS 5% LESS SOURCE FOR DATA: Bubbly 1800 OPERATION MANUAL( AUTOMATED BLOOD COUNTS AND [...] 2-19 YEARS EXCLUSIVE. Co2 24.6 mmol/L 22.0-29.0 [facility] NORMAL RANGES Age WBC RBC HGB [...] HCT IS 5% LESS SOURCE FOR DATA: Bioxodes DYN 1800 OPERATION MANUAL( AUTOMATED BLOOD COUNTS [...] HCT IS 5% LESS SOURCE FOR DATA: Bubbly 1800 OPERATION MANUAL( AUTOMATED BLOOD COUNTS AND [...] mmol/L 98.0-107.0 Above high normal PAM T ([facility] NORMAL RANGES Age [...] HCT IS 5% LESS SOURCE FOR DATA: Bubbly 1800 OPERATION MANUAL( AUTOMATED BLOOD COUNTS AND [...] HCT IS 5% LESS SOURCE FOR DATA: Bubbly 1800 OPERATION MANUAL( AUTOMATED BLOOD COUNTS AND [...] HCT IS 5% LESS SOURCE FOR DATA: Bubbly 1800 OPERATION MANUAL( AUTOMATED BLOOD COUNTS AND [...] TP 6.2 g/dL 6.6-8.7 Below low normal [facility] ( [facility] NORMAL RANGES Age [...] HCT IS 5% LESS SOURCE FOR DATA: Bubbly 1800 OPERATION MANUAL( AUTOMATED BLOOD COUNTS AND [...] YEARS EXCLUSIVE. Alt (SGPT) 16 U/L 0-41 [facility] ([facility] NORMAL RANGES [...] HCT IS 5% LESS SOURCE FOR DATA: Bubbly 1800 OPERATION MANUAL( AUTOMATED BLOOD COUNTS AND [...] HCT IS 5% LESS SOURCE FOR DATA: Bubbly 1800 OPERATION MANUAL( AUTOMATED BLOOD COUNTS AND [...] 2-19 YEARS EXCLUSIVE. Globulin 2.4 CALC [facility] NORMAL RANGES Age WBC [...] HCT IS 5% LESS SOURCE FOR DATA: Bubbly 1800 OPERATION MANUAL( AUTOMATED BLOOD COUNTS AND [...] 2-19 YEARS EXCLUSIVE. Tbili 0.39 mg/dL 0.0-1.2 [facility] ([facility] NORMAL [...] HCT IS 5% LESS SOURCE FOR DATA: Bubbly 1800 OPERATION MANUAL( AUTOMATED BLOOD COUNTS AND [...] HCT IS 5% LESS SOURCE FOR DATA: Bubbly 1800 OPERATION MANUAL( AUTOMATED BLOOD COUNTS AND [...] YEARS EXCLUSIVE. Ast (Sgot) 16 U/L 0-40 [facility] ([facility] NORMAL RANGES Age WBC RBC [...] HCT IS 5% LESS SOURCE FOR DATA: Bubbly 1800 OPERATION MANUAL( AUTOMATED BLOOD COUNTS AND [...] HCT IS 5% LESS SOURCE FOR DATA: Bubbly 1800 OPERATION MANUAL( AUTOMATED BLOOD COUNTS AND [...] HCT IS 5% LESS SOURCE FOR DATA: Bubbly 1800 OPERATION MANUAL( AUTOMATED BLOOD COUNTS AND [...] INDIVIDUALA AGED 2-19 YEARS EXCLUSIVE. eGFR Non-Afr. Andorran 44 # [facility] ([facility] [...] HCT IS 5% LESS SOURCE FOR DATA: Bubbly 1800 OPERATION MANUAL( AUTOMATED BLOOD COUNTS AND [...] 2-19 YEARS EXCLUSIVE. ID Date Data Source [id number] 06/18/2020 09:44:00 AM DES DINH ([facility] Name Value Range Interpretation Code Description Data Su rce(s) Supporting Document(s) WBC 7.6 10E3/uL 4.1-10.9 MED[facility] NORMAL RANGES Age WBC [...] HCT IS 5% LESS SOURCE FOR DATA: Bubbly 1800 OPERATION MANUAL( AUTOMATED BLOOD COUNTS AND [...] 2-19 YEARS EXCLUSIVE. HGB 14.0 g/dL 12.0-18.0 [facility] ([facility] NORMAL RANGES Age WBC [...] HCT IS 5% LESS SOURCE FOR DATA: Bubbly 1800 OPERATION MANUAL( AUTOMATED BLOOD COUNTS AND [...] 2-19 YEARS EXCLUSIVE. HCT 42.7 % 37.0-51.0 [facility] ([facility] NORMAL RANGES [...] HCT IS 5% LESS SOURCE FOR DATA: Bioxodes DYN 1800 OPERATION MANUAL( AUTOMATED BLOOD COUNTS [...] YEARS EXCLUSIVE. RBC 4.60 10E6/uL 4.20-6.30 ALLEGRA [facility] NORMAL RANGES Age WBC [...] HCT IS 5% LESS SOURCE FOR DATA: Bubbly 1800 OPERATION MANUAL( AUTOMATED BLOOD COUNTS AND [...] HCT IS 5% LESS SOURCE FOR DATA: Bubbly 1800 OPERATION MANUAL( AUTOMATED BLOOD COUNTS AND [...] 2-19 YEARS EXCLUSIVE. MCHC 32.8 g/dL 31.0-36.0 [facility] ([facility] NORMAL RANGES [...] HCT IS 5% LESS SOURCE FOR DATA: Bubbly 1800 OPERATION MANUAL( AUTOMATED BLOOD COUNTS AND [...] HCT IS 5% LESS SOURCE FOR DATA: Bubbly 1800 OPERATION MANUAL( AUTOMATED BLOOD COUNTS AND [...] 2-19 YEARS EXCLUSIVE. Lym% 22.8 % 10.0-58.5 [facility] ([facility] NORMAL RANGES Age WBC [...] HCT IS 5% LESS SOURCE FOR DATA: Bubbly 1800 OPERATION MANUAL( AUTOMATED BLOOD COUNTS AND [...] 2-19 YEARS EXCLUSIVE. RDW-CV 13.4 % 11.5-14.5 [facility] ([facility] NORMAL RANGES [...] HCT IS 5% LESS SOURCE FOR DATA: Bubbly 1800 OPERATION MANUAL( AUTOMATED BLOOD COUNTS AND [...] YEARS EXCLUSIVE. PLT 198 10E3/uL 140-440 [facility] ([facility] NORMAL RANGES Age WBC RBC [...] HCT IS 5% LESS SOURCE FOR DATA: Bubbly 1800 OPERATION MANUAL( AUTOMATED BLOOD COUNTS AND [...] 2-19 YEARS EXCLUSIVE. Lym# 1.7 10E3/uL 0.6-4.1 [facility] ([facility] NORMAL RANGES Age WBC RBC [...] HCT IS 5% LESS SOURCE FOR DATA: Bubbly 1800 OPERATION MANUAL( AUTOMATED BLOOD COUNTS AND [...] 2-19 YEARS EXCLUSIVE. MXD% 10.3 % 0.1-24.0 [facility] ([facility] NORMAL [...] HCT IS 5% LESS SOURCE FOR DATA: Bubbly 1800 OPERATION MANUAL( AUTOMATED BLOOD COUNTS AND [...] HCT IS 5% LESS SOURCE FOR DATA: Bubbly 1800 OPERATION MANUAL( AUTOMATED BLOOD COUNTS AND [...] YEARS EXCLUSIVE. MXD# 0.8 10E3/uL 0.0-1.8 [facility] ([facility] NORMAL RANGES Age WBC RBC [...] HCT IS 5% LESS SOURCE FOR DATA: Bioxodes DYN 1800 OPERATION MANUAL( AUTOMATED BLOOD COUNTS [...] 2-19 YEARS EXCLUSIVE. Neut# 5.1 % 2.0-7.8 [facility] ([facility] NORMAL RANGES [...] HCT IS 5% LESS SOURCE FOR DATA: Bubbly 1800 OPERATION MANUAL( AUTOMATED BLOOD COUNTS AND [...] 2-19 YEARS EXCLUSIVE. MPV 11.2 fL 9.0-13.0 [facility] ([facility] NORMAL [...] HCT IS 5% LESS SOURCE FOR DATA: Bubbly 1800 OPERATION MANUAL( AUTOMATED BLOOD COUNTS AND [...] 2-19 YEARS EXCLUSIVE. ID Date Data Source [id number] 06/18/2020 09:44:00 AM EST [facility] ([facility] Name Value Range Interpretation Code Description Data Su rce(s) Supporting Document(s) Hemoglobin A1c/Hemoglobin.total in Blood 8.8 % 4.4-6.1 Above high normal [facility] ([facility] {A1] {HB] ID Date Data Source [id number] 06/18/2020 02:23:00 PM [facility] Name Value Range Interpretation Code Description Data Su rce(s) Supporting Document(s) Hemoglobin A1c/Hemoglobin.total in Blood 8.8 % 4.4 - 6.[address] [facility] {A1]{HB] ID Date Data Source [id number] 03/11/2020 08:50:00 AM EDT [facility] ([facility] Name Value Range Interpretation Code Description Data Su rce(s) Supporting Document(s) Hemoglobin A1c/Hemoglobin.total in Blood 8.7 % 4.4-6.1 Above high normal [facility] ([facility] {A1] {HB] ID Date Data Source [id number] 03/11/2020 08:50:00 AM EDT [facility] ([facility] Name Value Range [...] HCT IS 5% LESS SOURCE FOR DATA: Bubbly 1800 OPERATION MANUAL( AUTOMATED BLOOD COUNTS AND [...] 2-19 YEARS EXCLUSIVE. Clarity Laboratory test result [facility] ([facility] NORMAL RANGES Age [...] HCT IS 5% LESS SOURCE FOR DATA: Bioxodes DYN 1800 OPERATION MANUAL( AUTOMATED BLOOD COUNTS [...] HCT IS 5% LESS SOURCE FOR DATA: Bubbly 1800 OPERATION MANUAL( AUTOMATED BLOOD COUNTS AND [...] HCT IS 5% LESS SOURCE FOR DATA: Bubbly 1800 OPERATION MANUAL( AUTOMATED BLOOD COUNTS AND [...] 2-19 YEARS EXCLUSIVE. Ketone Laboratory test result [facility] ([facility] NORMAL RANGES Age [...] HCT IS 5% LESS SOURCE FOR DATA: Bioxodes DYN 1800 OPERATION MANUAL( AUTOMATED BLOOD COUNTS [...] HCT IS 5% LESS SOURCE FOR DATA: Bubbly 1800 OPERATION MANUAL( AUTOMATED BLOOD COUNTS AND [...] HCT IS 5% LESS SOURCE FOR DATA: Bubbly 1800 OPERATION MANUAL( AUTOMATED BLOOD COUNTS AND [...] 2-19 YEARS EXCLUSIVE. Protein Laboratory test result [facility] ([facility] NORMAL RANGES Age [...] HCT IS 5% LESS SOURCE FOR DATA: Bioxodes DYN 1800 OPERATION MANUAL( AUTOMATED BLOOD COUNTS [...] 2-19 YEARS EXCLUSIVE. Nitrite Laboratory test result [facility] ([facility] NORMAL RANGES [...] HCT IS 5% LESS SOURCE FOR DATA: Bubbly 1800 OPERATION MANUAL( AUTOMATED BLOOD COUNTS AND [...] HCT IS 5% LESS SOURCE FOR DATA: Bubbly 1800 OPERATION MANUAL( AUTOMATED BLOOD COUNTS AND [...] HCT IS 5% LESS SOURCE FOR DATA: Bubbly 1800 OPERATION MANUAL( AUTOMATED BLOOD COUNTS AND [...] HCT IS 5% LESS SOURCE FOR DATA: Bubbly 1800 OPERATION MANUAL( AUTOMATED BLOOD COUNTS AND [...] result Abnormal (applies to non-numeric results) ALLEGRA ([facility] ) NORMAL RANGES [...] HCT IS 5% LESS SOURCE FOR DATA: Bubbly 1800 OPERATION MANUAL( AUTOMATED BLOOD COUNTS AND [...] Epithelial Cells - Ua Laboratory test result [facility] ([facility] NORMAL RANGES [...] HCT IS 5% LESS SOURCE FOR DATA: Bioxodes DYN 1800 OPERATION MANUAL( AUTOMATED BLOOD COUNTS [...] 2-19 YEARS EXCLUSIVE. Comment Laboratory test result [facility] ([facility] [facility] NORMAL RANGES Age [...] HCT IS 5% LESS SOURCE FOR DATA: Bubbly 1800 OPERATION MANUAL( AUTOMATED BLOOD COUNTS AND [...] Abnormal (applies to non -numeric results) [place] ([facility] NORMAL RANGES Age [...] HCT IS 5% LESS SOURCE FOR DATA: Bubbly 1800 OPERATION MANUAL( AUTOMATED BLOOD COUNTS AND [...] HCT IS 5% LESS SOURCE FOR DATA: Bubbly 1800 OPERATION MANUAL( AUTOMATED BLOOD COUNTS AND [...] 2-19 YEARS EXCLUSIVE. ID Date Data Source [id number] 03/11/2020 08:50:00 AM EDT [facility] (Famil y [...] HCT IS 5% LESS SOURCE FOR DATA: Bubbly 1800 OPERATION MANUAL( AUTOMATED BLOOD COUNTS AND [...] 2-19 YEARS EXCLUSIVE. Trig 115 mg/dL 40-200 [facility] ([facility] NORMAL [...] HCT IS 5% LESS SOURCE FOR DATA: Bubbly 1800 OPERATION MANUAL( AUTOMATED BLOOD COUNTS AND [...] 2-19 YEARS EXCLUSIVE. Cho/HDL Ratio 3.5 CALC [facility] ([facility] NORMAL RANGES Age WBC [...] HCT IS 5% LESS SOURCE FOR DATA: Bubbly 1800 OPERATION MANUAL( AUTOMATED BLOOD COUNTS AND [...] 2-19 YEARS EXCLUSIVE. LDL_C 94 Calc 75-129 [facility] ([facility] NORMAL [...] 2-19 YEARS EXCLUSIVE. ID Date Data Source [id number] 03/11/2020 08:50:00 AM EDT [facility] ([facility] Name Value Range Interpretation Code Description Data Su rce(s) Supporting Document(s) Creatine kinase [Enzymatic activity/volume] in Serum or Plasma 147 U/L 26-192 [facility] ([facility] NORMAL RANGES Age [...] HCT IS 5% LESS SOURCE FOR DATA: Bubbly 1800 OPERATION MANUAL( AUTOMATED BLOOD COUNTS AND [...] 2-19 YEARS EXCLUSIVE. ID Date Data Source [id number] 03/11/2020 08:50:00 AM EDT [facility] ([facility] Name Value Range Interpretation Code Description Data Su rce(s) Supporting Document(s) Glu 188 mg/dL 70-110 Above high normal [facility] ([facility] NORMAL RANGES Age WBC [...] HCT IS 5% LESS SOURCE FOR DATA: Bubbly 1800 OPERATION MANUAL( AUTOMATED BLOOD COUNTS AND [...] 2-19 YEARS EXCLUSIVE. BUN 18 mg/dL 8-23 [facility] ([facility] NORMAL RANGES [...] HCT IS 5% LESS SOURCE FOR DATA: Bubbly 1800 OPERATION MANUAL( AUTOMATED BLOOD COUNTS AND [...] YEARS EXCLUSIVE. BUN/Creatinine Ratio 20.5 CALC [facility] ([facility] NORMAL RANGES Age WBC [...] HCT IS 5% LESS SOURCE FOR DATA: Bubbly 1800 OPERATION MANUAL( AUTOMATED BLOOD COUNTS AND [...] 2-19 YEARS EXCLUSIVE. Creat 0.9 mg/dL 0.5-1.0 [facility] ([facility] NORMAL [...] 2-19 YEARS EXCLUSIVE. Na 139 mmol/L 136-145 [facility] ([facility] NORMAL [...] HCT IS 5% LESS SOURCE FOR DATA: Bubbly 1800 OPERATION MANUAL( AUTOMATED BLOOD COUNTS AND [...] HCT IS 5% LESS SOURCE FOR DATA: Bubbly 1800 OPERATION MANUAL( AUTOMATED BLOOD COUNTS AND [...] 2-19 YEARS EXCLUSIVE. Co2 27.5 mmol/L 22.0-29.0 [facility] ([facility] NORMAL RANGES Age WBC RBC [...] HCT IS 5% LESS SOURCE FOR DATA: Bubbly 1800 OPERATION MANUAL( AUTOMATED BLOOD COUNTS AND [...] 2-19 YEARS EXCLUSIVE. CL 103.6 mmol/L 98.0-107.0 [facility] ([facility] NORMAL RANGES Age WBC [...] HCT IS 5% LESS SOURCE FOR DATA: Bubbly 1800 OPERATION MANUAL( AUTOMATED BLOOD COUNTS AND [...] HCT IS 5% LESS SOURCE FOR DATA: Bubbly 1800 OPERATION MANUAL( AUTOMATED BLOOD COUNTS AND [...] HCT IS 5% LESS SOURCE FOR DATA: Bubbly 1800 OPERATION MANUAL( AUTOMATED BLOOD COUNTS AND [...] 2-19 YEARS EXCLUSIVE. A/G Ratio 1.6 CALC [facility] ([facility] NORMAL [...] HCT IS 5% LESS SOURCE FOR DATA: Bubbly 1800 OPERATION MANUAL( AUTOMATED BLOOD COUNTS AND [...] 2-19 YEARS EXCLUSIVE. Alb 4.0 g/dL 3.4-4.8 [facility] NORMAL RANGES Age WBC [...] HCT IS 5% LESS SOURCE FOR DATA: Bubbly 1800 OPERATION MANUAL( AUTOMATED BLOOD COUNTS AND [...] 2-19 YEARS EXCLUSIVE. Alp 72.6 U/L 35-129 [facility] ([facility] NORMAL [...] HCT IS 5% LESS SOURCE FOR DATA: Bioxodes DYN 1800 OPERATION MANUAL( AUTOMATED BLOOD COUNTS [...] HCT IS 5% LESS SOURCE FOR DATA: Bubbly 1800 OPERATION MANUAL( AUTOMATED BLOOD COUNTS AND [...] YEARS EXCLUSIVE. Alt (SGPT) 18 U/L 0-41 [facility] NORMAL RANGES Age WBC RBC [...] HCT IS 5% LESS SOURCE FOR DATA: Bubbly 1800 OPERATION MANUAL( AUTOMATED BLOOD COUNTS AND [...] YEARS EXCLUSIVE. Ast (Sgot) 19 U/L 0-40 [facility] ([facility] NORMAL RANGES Age WBC RBC [...] HCT IS 5% LESS SOURCE FOR DATA: Bubbly 1800 OPERATION MANUAL( AUTOMATED BLOOD COUNTS AND [...] 2-19 YEARS EXCLUSIVE. Tbili 0.56 mg/dL 0.0-1.2 [facility] ([facility] NORMAL [...] HCT IS 5% LESS SOURCE FOR DATA: Bubbly 1800 OPERATION MANUAL( AUTOMATED BLOOD COUNTS AND [...] YEARS EXCLUSIVE. Anion Gap 13 mmol/L [place] ([facility] NORMAL RANGES [...] HCT IS 5% LESS SOURCE FOR DATA: Bubbly 1800 OPERATION MANUAL( AUTOMATED BLOOD COUNTS AND [...] HCT IS 5% LESS SOURCE FOR DATA: Bubbly 1800 OPERATION MANUAL( AUTOMATED BLOOD COUNTS AND [...] INDIVIDUALA AGED 2-19 YEARS EXCLUSIVE. eGFR Non-Afr. [place]orran 63 # [facility] ([facility] CKD-EPI eGFR 72 # [facility] ( [facility] CKD-EPI ID Date Data Source [id number] 03/11/2020 08:50:00 AM EDT [facility] ([facility] Name Value Range Interpretation [...] HCT IS 5% LESS SOURCE FOR DATA: Bubbly 1800 OPERATION MANUAL( AUTOMATED BLOOD COUNTS AND [...] 2-19 YEARS EXCLUSIVE. RBC 4.55 10E6/uL 4.-6 [place] ([facility] NORMAL RANGES Age WBC [...] HCT IS 5% LESS SOURCE FOR DATA: Bubbly 1800 OPERATION MANUAL( AUTOMATED BLOOD COUNTS AND [...] HCT IS 5% LESS SOURCE FOR DATA: Bubbly 1800 OPERATION MANUAL( AUTOMATED BLOOD COUNTS AND [...] HCT IS 5% LESS SOURCE FOR DATA: Bubbly 1800 OPERATION MANUAL( AUTOMATED BLOOD COUNTS AND [...] 2-19 YEARS EXCLUSIVE. HCT 41.5 % 37.0-51.0 [facility] ([facility] NORMAL [...] HCT IS 5% LESS SOURCE FOR DATA: Bubbly 1800 OPERATION MANUAL( AUTOMATED BLOOD COUNTS AND [...] YEARS EXCLUSIVE. PLT 203 10E3/uL 140-440 [facility] ([facility] NORMAL RANGES Age WBC RBC [...] HCT IS 5% LESS SOURCE FOR DATA: Bioxodes DYN 1800 OPERATION MANUAL( AUTOMATED BLOOD COUNTS [...] HCT IS 5% LESS SOURCE FOR DATA: Bubbly 1800 OPERATION MANUAL( AUTOMATED BLOOD COUNTS AND [...] 2-19 YEARS EXCLUSIVE. MCHC 33.5 g/dL 31.0-36.0 [facility] ([facility] NORMAL [...] HCT IS 5% LESS SOURCE FOR DATA: Bubbly 1800 OPERATION MANUAL( AUTOMATED BLOOD COUNTS AND [...] HCT IS 5% LESS SOURCE FOR DATA: Bubbly 1800 OPERATION MANUAL( AUTOMATED BLOOD COUNTS AND [...] 2-19 YEARS EXCLUSIVE. RDW-CV 13.6 % 11.5-14.5 [facility] ([facility] NORMAL RANGES Age WBC [...] HCT IS 5% LESS SOURCE FOR DATA: Bubbly 1800 OPERATION MANUAL( AUTOMATED BLOOD COUNTS AND [...] 2-19 YEARS EXCLUSIVE. Neut% 61.3 % 37.0-92.0 [facility] ([facility] NORMAL [...] HCT IS 5% LESS SOURCE FOR DATA: Bubbly 1800 OPERATION MANUAL( AUTOMATED BLOOD COUNTS AND [...] HCT IS 5% LESS SOURCE FOR DATA: Bubbly 1800 OPERATION MANUAL( AUTOMATED BLOOD COUNTS AND [...] 2-19 YEARS EXCLUSIVE. Lym# 2.0 10E3/uL 0.6-4.1 [facility] ([facility] NORMAL RANGES Age WBC RBC [...] 2-19 YEARS EXCLUSIVE. Neut# 4.2 % 2.0-7.8 [facility] ([facility] NORMAL RANGES [...] HCT IS 5% LESS SOURCE FOR DATA: Bubbly 1800 OPERATION MANUAL( AUTOMATED BLOOD COUNTS AND [...] HCT IS 5% LESS SOURCE FOR DATA: Bubbly 1800 OPERATION MANUAL( AUTOMATED BLOOD COUNTS AND [...] 2-19 YEARS EXCLUSIVE. MXD# 0.8 10E3/uL 0.0-1.8 [facility] ([facility] NORMAL RANGES Age WBC RBC [...] 2-19 YEARS EXCLUSIVE. ID Date Data Source [id number] 03/11/2020 01:45:[address] [facility] Name Value Range Interpretation Code Description Data [facility](s) Supporting Document(s) Hemoglobin A1c/Hemoglobin.total in Blood 8.7 % 4.4 - 6.[address] [facility] {A1]{HB] ID Date Data Source [id number] 12/17/2019 11:09:00 AM EDT [facility] ([facility] Name Value Range Interpretation Code Description Data Su [facility](s) Supporting Document(s) Chol 157 mg/dL 0-200 [facility] [...] HCT IS 5% LESS SOURCE FOR DATA: Bubbly 1800 OPERATION MANUAL( AUTOMATED BLOOD COUNTS AND [...] HCT IS 5% LESS SOURCE FOR DATA: Bubbly 1800 OPERATION MANUAL( AUTOMATED BLOOD COUNTS AND [...] >32 mL/min Normal Trig 151 mg/dL 40-200 [facility] ([facility] NORMAL RANGES Age WBC [...] HCT IS 5% LESS SOURCE FOR DATA: Bubbly 1800 OPERATION MANUAL( AUTOMATED BLOOD COUNTS AND [...] in Serum or Plasma 46 mg/dL 45-65 [facility] ([facility] NORMAL RANGES Age [...] IS 5% LESS SOURCE FOR DATA: DAMARIS CDP 1800 OPERATION MANUAL( AUTOMATED BLOOD COUNTS AND [...] >32 mL/min Normal Cho/HDL Ratio 3.4 CALC [facility] ([facility] NORMAL RANGES Age WBC RBC HGB [...] HCT IS 5% LESS SOURCE FOR DATA: Bubbly 1800 OPERATION MANUAL( AUTOMATED BLOOD COUNTS AND [...] >32 mL/min Normal ID Date Data Source [id number] 12/17/2019 11:09:00 AM EDT [facility] ([facility] Name Value Range Interpretation Code Description Data Su rce(s) Supporting Document(s) Creatine kinase [Enzymatic activity/volume] in Serum or Plasma 125 U/L 26-192 [facility] ([facility] NORMAL RANGES Age [...] HCT IS 5% LESS SOURCE FOR DATA: Bubbly 1800 OPERATION MANUAL( AUTOMATED BLOOD COUNTS AND [...] >32 mL/min Normal ID Date Data Source [id number] 12/17/2019 11:09:00 AM BRAD DINH ([facility] Name Value Range Interpretation Code Description Data Su rce(s) Supporting Document(s) Creat 1.0 mg/dL 0.5-1.0 [place] ([facility] NORMAL RANGES [...] HCT IS 5% LESS SOURCE FOR DATA: Bubbly 1800 OPERATION MANUAL( AUTOMATED BLOOD COUNTS AND [...] HCT IS 5% LESS SOURCE FOR DATA: Bubbly 1800 OPERATION MANUAL( AUTOMATED BLOOD COUNTS AND [...] >32 mL/min Normal BUN 17 mg/dL 8-23 [facility] ([facility] NORMAL RANGES [...] HCT IS 5% LESS SOURCE FOR DATA: Bubbly 1800 OPERATION MANUAL( AUTOMATED BLOOD COUNTS AND [...] >32 mL/min Normal Na 140 mmol/L 136-145 [facility] ([facility] NORMAL RANGES [...] HCT IS 5% LESS SOURCE FOR DATA: Bubbly 1800 OPERATION MANUAL( AUTOMATED BLOOD COUNTS AND [...] above >32 mL/min Normal BUN/Creatinine Ratio 17.7 [facility] ([facility] NORMAL RANGES Age [...] HCT IS 5% LESS SOURCE FOR DATA: Bubbly 1800 OPERATION MANUAL( AUTOMATED BLOOD COUNTS AND [...] >32 mL/min Normal K 4.6 mmol/L 3.5-5.1 [facility] ([facility] NORMAL RANGES Age WBC RBC [...] HCT IS 5% LESS SOURCE FOR DATA: Bubbly 1800 OPERATION MANUAL( AUTOMATED BLOOD COUNTS AND [...] >32 mL/min Normal CA 9.1 mg/dL 8.6-10.2 [facility] NORMAL RANGES Age [...] HCT IS 5% LESS SOURCE FOR DATA: Bubbly 1800 OPERATION MANUAL( AUTOMATED BLOOD COUNTS AND [...] >32 mL/min Normal CL 105.3 mmol/L 98.0-107.0 [facility] ([facility] NORMAL RANGES Age WBC [...] HCT IS 5% LESS SOURCE FOR DATA: Bubbly 1800 OPERATION MANUAL( AUTOMATED BLOOD COUNTS AND [...] >32 mL/min Normal Co2 26.3 mmol/L 22.0-29.0 [place] ([facility] NORMAL RANGES Age WBC RBC [...] HCT IS 5% LESS SOURCE FOR DATA: Bubbly 1800 OPERATION MANUAL( AUTOMATED BLOOD COUNTS AND [...] TP 6.4 g/dL 6.6-8.7 Below low normal [facility] ( [facility] NORMAL RANGES [...] HCT IS 5% LESS SOURCE FOR DATA: Bubbly 1800 OPERATION MANUAL( AUTOMATED BLOOD COUNTS AND [...] HCT IS 5% LESS SOURCE FOR DATA: Bubbly 1800 OPERATION MANUAL( AUTOMATED BLOOD COUNTS AND [...] HCT IS 5% LESS SOURCE FOR DATA: Bioxodes DYN 1800 OPERATION MANUAL( AUTOMATED BLOOD COUNTS [...] HCT IS 5% LESS SOURCE FOR DATA: Bubbly 1800 OPERATION MANUAL( AUTOMATED BLOOD COUNTS AND [...] >32 mL/min Normal Alp 69.2 U/L 35-129 [facility] ([facility] NORMAL RANGES [...] HCT IS 5% LESS SOURCE FOR DATA: Bubbly 1800 OPERATION MANUAL( AUTOMATED BLOOD COUNTS AND [...] mL/min Normal Alt (SGPT) 17 U/L 0-41 [facility] ([facility] NORMAL RANGES Age WBC RBC HGB [...] HCT IS 5% LESS SOURCE FOR DATA: Bubbly 1800 OPERATION MANUAL( AUTOMATED BLOOD COUNTS AND [...] mL/min Normal Ast (Sgot) 18 U/L 0-40 [facility] ([facility] NORMAL RANGES Age WBC RBC [...] HCT IS 5% LESS SOURCE FOR DATA: Bubbly 1800 OPERATION MANUAL( AUTOMATED BLOOD COUNTS AND [...] >32 mL/min Normal Tbili 0.37 mg/dL 0.0-1.2 [place] ([facility] NORMAL RANGES Age WBC RBC [...] HCT IS 5% LESS SOURCE FOR DATA: Bubbly 1800 OPERATION MANUAL( AUTOMATED BLOOD COUNTS AND [...] and above >32 mL/min Normal eGFR Non-Afr. [place]orran 55 # [facility] ([facility] [...] HCT IS 5% LESS SOURCE FOR DATA: Bubbly 1800 OPERATION MANUAL( AUTOMATED BLOOD COUNTS AND [...] HCT IS 5% LESS SOURCE FOR DATA: Bubbly 1800 OPERATION MANUAL( AUTOMATED BLOOD COUNTS AND [...] HCT IS 5% LESS SOURCE FOR DATA: Bubbly 1800 OPERATION MANUAL( AUTOMATED BLOOD COUNTS AND [...] >32 mL/min Normal ID Date Data Source [id number] 12/17/2019 11:09:00 AM EDT [place] ([facility] Name Value Range Interpretation Code Description Data Su rce(s) Supporting Document(s) WBC 7.9 10E3/uL 4.1-10.9 [place] ([facility] NORMAL RANGES Age WBC RBC [...] HCT IS 5% LESS SOURCE FOR DATA: Bubbly 1800 OPERATION MANUAL( AUTOMATED BLOOD COUNTS AND [...] >32 mL/min Normal HCT 40.7 % 37.0-51.0 [facility] ([facility] NORMAL RANGES [...] HCT IS 5% LESS SOURCE FOR DATA: Bubbly 1800 OPERATION MANUAL( AUTOMATED BLOOD COUNTS AND [...] >32 mL/min Normal RBC 4.46 10E6/uL 4.20-6.30 [facility] ([facility] NORMAL RANGES Age WBC [...] HCT IS 5% LESS SOURCE FOR DATA: Bubbly 1800 OPERATION MANUAL( AUTOMATED BLOOD COUNTS AND [...] >32 mL/min Normal HGB 13.8 g/dL 12.0-18.0 [facility] ([facility] NORMAL RANGES Age WBC [...] >32 mL/min Normal MCV 91.3 fL 80.0-97.0 [facility] ([facility] NORMAL RANGES [...] HCT IS 5% LESS SOURCE FOR DATA: Bubbly 1800 OPERATION MANUAL( AUTOMATED BLOOD COUNTS AND [...] >32 mL/min Normal MCHC 33.9 g/dL 31.0-36.0 [facility] ([facility] NORMAL RANGES [...] HCT IS 5% LESS SOURCE FOR DATA: Bubbly 1800 OPERATION MANUAL( AUTOMATED BLOOD COUNTS AND [...] >32 mL/min Normal MCH 30.9 pg 26.0-32.0 [facility] ([facility] NORMAL RANGES [...] HCT IS 5% LESS SOURCE FOR DATA: Bubbly 1800 OPERATION MANUAL( AUTOMATED BLOOD COUNTS AND [...] >32 mL/min Normal PLT 182 10E3/uL 140-440 [facility] ([facility] NORMAL RANGES Age WBC RBC [...] HCT IS 5% LESS SOURCE FOR DATA: Bubbly 1800 OPERATION MANUAL( AUTOMATED BLOOD COUNTS AND [...] HCT IS 5% LESS SOURCE FOR DATA: Bubbly 1800 OPERATION MANUAL( AUTOMATED BLOOD COUNTS AND [...] >32 mL/min Normal Lym% 23.5 % 10.0-58.5 [facility] ([facility] NORMAL RANGES [...] HCT IS 5% LESS SOURCE FOR DATA: Bubbly 1800 OPERATION MANUAL( AUTOMATED BLOOD COUNTS AND [...] >32 mL/min Normal Neut% 67.6 % 37.0-92.0 [facility] NORMAL RANGES Age WBC [...] HCT IS 5% LESS SOURCE FOR DATA: Bubbly 1800 OPERATION MANUAL( AUTOMATED BLOOD COUNTS AND [...] mL/min Normal Lym# 1.9 10E3/uL 0.6-4.1 [place] ([facility] NORMAL RANGES Age WBC RBC [...] HCT IS 5% LESS SOURCE FOR DATA: Bubbly 1800 OPERATION MANUAL( AUTOMATED BLOOD COUNTS AND [...] >32 mL/min Normal MXD% 8.9 % 0.1-24.0 [facility] NORMAL RANGES Age [...] >32 mL/min Normal Neut# 5.3 % 2.0-7.8 [facility] ([facility] NORMAL RANGES [...] HCT IS 5% LESS SOURCE FOR DATA: Bubbly 1800 OPERATION MANUAL( AUTOMATED BLOOD COUNTS AND [...] >32 mL/min Normal MXD# 0.7 10E3/uL 0.0-1.8 [facility] ([facility] NORMAL RANGES Age WBC RBC [...] HCT IS 5% LESS SOURCE FOR DATA: Bubbly 1800 OPERATION MANUAL( AUTOMATED BLOOD COUNTS AND [...] >32 mL/min Normal MPV 11.1 fL 9.0-13.0 [facility] ([facility] NORMAL RANGES [...] HCT IS 5% LESS SOURCE FOR DATA: Bubbly 1800 OPERATION MANUAL( AUTOMATED BLOOD COUNTS AND [...] >32 mL/min Normal ID Date Data Source [id number] 12/17/2019 11:09:00 AM EDT [facility] ([facility] Name Value Range Interpretation Code Description Data Su rce(s) Supporting Document(s) Hemoglobin A1c/Hemoglobin.total in Blood 9.6 % 4.4-6.1 Above high normal [facility] ([facility] {A1] {HB] ID Date Data Source [id number] 12/17/2019 06:27:[address] [facility] Name Value Range Interpretation Code Description Data Su rce(s) Supporting Document(s) Hemoglobin A1c/Hemoglobin.total in Blood 9.6 % 4.4 - 6.[address] [facility] {A1]{HB] ID Date Data Source [id number] 09/17/2019 01:23:00 PM EDT [facility] ([facility] [facility] Name Value Range Interpretation Code Description Data Su rce(s) Supporting Document(s) Hemoglobin A1c/Hemoglobin.total in Blood 8.8 % 4.4-6.1 Above high normal [facility] ([facility] {A1] {HB] ID Date Data Source [id number] 09/17/2019 01:23:00 PM EDT [facility] ([facility] Name Value Range Interpretation Code Description Data Su rce(s) Supporting Document(s) Cholesterol in HDL [Mass/volume] in Serum or Plasma 45 mg/dL 45-65 [facility] ([facility] CLASSIFICATION CHOLESTEROL FO R [...] HCT IS 5% LESS SOURCE FOR DATA: Bubbly 1800 OPERATION MANUAL( AUTOMATED BLOOD COUNTS AND DIFF.) APPENDIX B-3 Trig 174 mg/dL 40-200 [facility] CLASSIFICATION CHOLESTEROL FO [...] HCT IS 5% LESS SOURCE FOR DATA: Bioxodes DYN 1800 OPERATION MANUAL( AUTOMATED BLOOD COUNTS AND DIFF.) APPENDIX B-3 Cho/HDL Ratio 3.4 CALC [facility] ([facility] CLASSIFICATION CHOLESTEROL FO R ADULTS [...] HCT IS 5% LESS SOURCE FOR DATA: Bubbly 1800 OPERATION MANUAL( AUTOMATED BLOOD COUNTS AND DIFF.) APPENDIX B-3 LDL_C 70 Calc 75-129 Below low normal [facility] ( [facility] CLASSIFICATION CHOLESTEROL [...] HCT IS 5% LESS SOURCE FOR DATA: Bubbly 1800 OPERATION MANUAL( AUTOMATED BLOOD COUNTS AND DIFF.) APPENDIX B-3 ID Date Data Source [id number] 09/17/2019 01:23:00 PM EDT [facility] ([facility] Name Value Range Interpretation Code Description Data Su rce(s) Supporting Document(s) Creatine kinase [Enzymatic activity/volume] in Serum or Plasma 127 U/L 26-192 [facility] ([facility] CLASSIFICATION CHOLESTEROL FO [...] HCT IS 5% LESS SOURCE FOR DATA: Bubbly 1800 OPERATION MANUAL( AUTOMATED BLOOD COUNTS AND DIFF.) APPENDIX B-3 ID Date Data Source [id number] 09/17/2019 01:23:00 PM EDT [facility] ([facility] Name Value Range Interpretation Code Description Data Su rce(s) Supporting Document(s) Glu 215 mg/dL 70-110 Above high normal [facility] ([facility] CLASSIFICATION CHOLESTEROL FO [...] DIFF.) APPENDIX B-3 BUN 20 mg/dL 8-23 [facility] ([facility] CLASSIFICATION [...] HCT IS 5% LESS SOURCE FOR DATA: Bubbly 1800 OPERATION MANUAL( AUTOMATED BLOOD COUNTS AND [...] HCT IS 5% LESS SOURCE FOR DATA: Bubbly 1800 OPERATION MANUAL( AUTOMATED BLOOD COUNTS AND DIFF.) APPENDIX B-3 BUN/Creatinine Ratio 21.0 CALC [facility] ([facility] CLASSIFICATION CHOLESTEROL FO R [...] APPENDIX B-3 Na 141 mmol/L 136-145 [facility] ([facility] CLASSIFICATION CHOLESTEROL FO R ADULTS [...] APPENDIX B-3 K 4.6 mmol/L 3.5-5.1 [facility] ([facility] CLASSIFICATION CHOLESTEROL FO R ADULTS [...] HCT IS 5% LESS SOURCE FOR DATA: Bubbly 1800 OPERATION MANUAL( AUTOMATED BLOOD COUNTS AND DIFF.) APPENDIX B-3 CL 106.6 mmol/L 98.0-107.0 [facility] ([facility] CLASSIFICATION CHOLESTEROL FO R [...] DIFF.) APPENDIX B-3 Co2 22.5 mmol/L 22.0-29.0 [facility] ([facility] CLASSIFICATION CHOLESTEROL FO R ADULTS [...] HCT IS 5% LESS SOURCE FOR DATA: Bubbly 1800 OPERATION MANUAL( AUTOMATED BLOOD COUNTS AND DIFF.) APPENDIX B-3 TP 6.3 g/dL 6.6-8.7 Below low normal [facility] ( [facility] CLASSIFICATION CHOLESTEROL [...] HCT IS 5% LESS SOURCE FOR DATA: Bubbly 1800 OPERATION MANUAL( AUTOMATED BLOOD COUNTS AND [...] APPENDIX B-3 Alb 3.7 g/dL 3.4-4.8 [facility] ([facility] CLASSIFICATION CHOLESTEROL FO R [...] HCT IS 5% LESS SOURCE FOR DATA: Bubbly 1800 OPERATION MANUAL( AUTOMATED BLOOD COUNTS AND DIFF.) APPENDIX B-3 Globulin 2.6 CALC [facility] ([facility] CLASSIFICATION CHOLESTEROL FO [...] HCT IS 5% LESS SOURCE FOR DATA: Bioxodes DYN 1800 OPERATION MANUAL( AUTOMATED BLOOD COUNTS [...] HCT IS 5% LESS SOURCE FOR DATA: Bioxodes DYN 1800 OPERATION MANUAL( AUTOMATED BLOOD COUNTS AND DIFF.) APPENDIX B-3 Alt (SGPT) 19 U/L 0-41 [facility] ([facility] CLASSIFICATION CHOLESTEROL FO R ADULTS [...] HCT IS 5% LESS SOURCE FOR DATA: Bubbly 1800 OPERATION MANUAL( AUTOMATED BLOOD COUNTS AND DIFF.) APPENDIX B-3 Alp 70.2 U/L 35-129 [facility] CLASSIFICATION CHOLESTEROL FO [...] B-3 Ast (Sgot) 18 U/L 0-40 [facility] ([facility] CLASSIFICATION CHOLESTEROL FO R ADULTS [...] HCT IS 5% LESS SOURCE FOR DATA: Bubbly 1800 OPERATION MANUAL( AUTOMATED BLOOD COUNTS AND DIFF.) APPENDIX B-3 Tbili 0.38 mg/dL 0.0-1.2 [facility] ([facility] CLASSIFICATION CHOLESTEROL FO R ADULTS [...] HCT IS 5% LESS SOURCE FOR DATA: Bioxodes DYN 1800 OPERATION MANUAL( AUTOMATED BLOOD COUNTS [...] HCT IS 5% LESS SOURCE FOR DATA: Bioxodes DYN 1800 OPERATION MANUAL( AUTOMATED BLOOD COUNTS AND DIFF.) APPENDIX B-3 eGFR Non-Afr. [place]ran 63 # [facility] ([facility] [...] HCT IS 5% LESS SOURCE FOR DATA: Bubbly 1800 OPERATION MANUAL( AUTOMATED BLOOD COUNTS AND DIFF.) APPENDIX B-3 ID Date Data Source [id number] 09/17/2019 01:23:00 PM EDT [facility] ([facility] Name Value Range Interpretation Code Description Data Su rce(s) Supporting Document(s) WBC 8.4 10E3/uL 4.1-10.9 [facility] ([facility] CLASSIFICATION CHOLESTEROL FO R ADULTS [...] HCT IS 5% LESS SOURCE FOR DATA: Bubbly 1800 OPERATION MANUAL( AUTOMATED BLOOD COUNTS AND [...] HCT IS 5% LESS SOURCE FOR DATA: Bubbly 1800 OPERATION MANUAL( AUTOMATED BLOOD COUNTS AND [...] APPENDIX B-3 HCT 41.0 % 37.0-51.0 [facility] ([facility] CLASSIFICATION CHOLESTEROL FO R [...] B-3 HGB 13.8 g/dL 12.0-18.0 [facility] ([facility] CLASSIFICATION CHOLESTEROL FO R [...] DIFF.) APPENDIX B-3 PLT 194 10E3/uL 140-440 [facility] ([facility] CLASSIFICATION CHOLESTEROL FO R ADULTS [...] DIFF.) APPENDIX B-3 MCHC 33.7 g/dL 31.0-36.0 [facility] ([facility] CLASSIFICATION CHOLESTEROL [...] DIFF.) APPENDIX B-3 MCH 30.8 pg 26.0-32.0 [facility] ([facility] CLASSIFICATION CHOLESTEROL [...] HCT IS 5% LESS SOURCE FOR DATA: Bubbly 1800 OPERATION MANUAL( AUTOMATED BLOOD COUNTS AND [...] HCT IS 5% LESS SOURCE FOR DATA: Bioxodes DYN 1800 OPERATION MANUAL( AUTOMATED BLOOD COUNTS [...] HCT IS 5% LESS SOURCE FOR DATA: Bubbly 1800 OPERATION MANUAL( AUTOMATED BLOOD COUNTS AND DIFF.) APPENDIX B-3 Lym# 1.9 10E3/uL 0.6-4.1 [facility] ([facility] CLASSIFICATION CHOLESTEROL FO R ADULTS [...] HCT IS 5% LESS SOURCE FOR DATA: Bubbly 1800 OPERATION MANUAL( AUTOMATED BLOOD COUNTS AND [...] HCT IS 5% LESS SOURCE FOR DATA: Bioxodes DYN 1800 OPERATION MANUAL( AUTOMATED BLOOD COUNTS AND DIFF.) APPENDIX B-3 MXD# 0.8 10E3/uL 0.0-1.8 [facility] ([facility] CLASSIFICATION CHOLESTEROL FO R ADULTS [...] DIFF.) APPENDIX B-3 MPV 11.3 fL 9.0-13.0 [facility] CLASSIFICATION CHOLESTEROL FO [...] HCT IS 5% LESS SOURCE FOR DATA: Bubbly 1800 OPERATION MANUAL( AUTOMATED BLOOD COUNTS AND DIFF.) APPENDIX B-3 Neut# 5.7 % 2.0-7.8 [facility] ([facility] CLASSIFICATION [...] DIFF.) APPENDIX B-3 ID Date Data Source [id number] 09/17/2019 05:53:[address] [facility] Name Value Range Interpretation Code Description Data Su rce(s) Supporting Document(s) Hemoglobin A1c/Hemoglobin.total in Blood 8.8 % 4.4 - 6.[address] [facility] {A1]{HB] ID Date Data Source [id number] 06/20/2019 09:17:00 AM EST [facility] ([facility] Name Value Range Interpretation Code Description Data Su rce(s) Supporting Document(s) Hemoglobin A1c/Hemoglobin.total in Blood 9.5 % 4.4-6.1 Above high normal [facility] ([facility] {A1] {HB] ID Date Data Source [id number] 06/20/2019 09:17:00 AM EST [facility] ([facility] Name Value Range Interpretation Code Description Data Su rce(s) Supporting Document(s) Color Laboratory test result [facility] ([facility] CLASSIFICATION CHOLESTEROL FO R [...] DIFF.) APPENDIX B-3 Clarity Laboratory test result [facility] ([facility] CLASSIFICATION CHOLESTEROL FO [...] DIFF.) APPENDIX B-3 Ketone Laboratory test result [facility] ([facility] CLASSIFICATION CHOLESTEROL FO [...] HCT IS 5% LESS SOURCE FOR DATA: Bubbly 1800 OPERATION MANUAL( AUTOMATED BLOOD COUNTS AND DIFF.) APPENDIX B-3 Bilirubin,Urine Laboratory test result [facility] ([facility] CLASSIFICATION CHOLESTEROL FO [...] HCT IS 5% LESS SOURCE FOR DATA: Bioxodes DYN 1800 OPERATION MANUAL( AUTOMATED BLOOD COUNTS [...] HCT IS 5% LESS SOURCE FOR DATA: Bubbly 1800 OPERATION MANUAL( AUTOMATED BLOOD COUNTS AND DIFF.) APPENDIX B-3 pH 6.0 # 5.0-8.0 [facility] ([facility] CLASSIFICATION CHOLESTEROL FO R [...] DIFF.) APPENDIX B-3 Protein Laboratory test result [facility] ([facility] CLASSIFICATION CHOLESTEROL FO [...] HCT IS 5% LESS SOURCE FOR DATA: Bubbly 1800 OPERATION MANUAL( AUTOMATED BLOOD COUNTS AND [...] HCT IS 5% LESS SOURCE FOR DATA: Bioxodes DYN 1800 OPERATION MANUAL( AUTOMATED BLOOD COUNTS AND DIFF.) APPENDIX B-3 Urobilinogen 0.2 NA 0.2-1.0 [facility] ([facility] CLASSIFICATION CHOLESTEROL FO R [...] HCT IS 5% LESS SOURCE FOR DATA: Bubbly 1800 OPERATION MANUAL( AUTOMATED BLOOD COUNTS AND DIFF.) APPENDIX B-3 ID Date Data Source [id number] 06/20/2019 09:17:00 [facility]ANNON [facility] ([facility] Name Value Range Interpretation [...] HCT IS 5% LESS SOURCE FOR DATA: Bubbly 1800 OPERATION MANUAL( AUTOMATED BLOOD COUNTS AND DIFF.) APPENDIX B-3 Trig 80 mg/dL 40-200 [facility] ([facility] CLASSIFICATION [...] Cho/HDL Ratio 3.2 Calc [facility] ([facility] CLASSIFICATION CHOLESTEROL FO R [...] HCT IS 5% LESS SOURCE FOR DATA: Bioxodes DYN 1800 OPERATION MANUAL( AUTOMATED BLOOD COUNTS AND DIFF.) APPENDIX B-3 Prostate specific Ag [Mass/volume] in Serum or Plasma 47 mg/dL 45-6 5 [facility] ([facility] CLASSIFICATION CHOLESTEROL FO [...] HCT IS 5% LESS SOURCE FOR DATA: Bubbly 1800 OPERATION MANUAL( AUTOMATED BLOOD COUNTS AND [...] DIFF.) APPENDIX B-3 ID Date Data Source [id number] 06/20/2019 09:17:00 AM EST [facility] ([facility] Name Value Range Interpretation Code Description Data Su rce(s) Supporting Document(s) Creatine kinase [Enzymatic activity/volume] in Serum or Plasma 145 U/L 26-192 [facility] ([facility] CLASSIFICATION CHOLESTEROL FO [...] HCT IS 5% LESS SOURCE FOR DATA: Bubbly 1800 OPERATION MANUAL( AUTOMATED BLOOD COUNTS AND DIFF.) APPENDIX B-3 ID Date Data Source [id number] 06/20/2019 09:17:00 AM EST [facility] ([facility] Name Value Range Interpretation Code Description Data Su rce(s) Supporting Document(s) Glu 145 mg/dL 70-110 Above high normal [facility] ([facility] CLASSIFICATION CHOLESTEROL FO [...] DIFF.) APPENDIX B-3 BUN 16 mg/dL 8- [facility] ([facility] CLASSIFICATION [...] DIFF.) APPENDIX B-3 Creat 0.9 mg/dL 0.5-1.0 [facility] ([facility] CLASSIFICATION [...] HCT IS 5% LESS SOURCE FOR DATA: Bubbly 1800 OPERATION MANUAL( AUTOMATED BLOOD COUNTS AND DIFF.) APPENDIX B-3 K 5.0 mmol/L 3.5-5.1 [facility] ([facility] CLASSIFICATION CHOLESTEROL FO R ADULTS [...] HCT IS 5% LESS SOURCE FOR DATA: Bubbly 1800 OPERATION MANUAL( AUTOMATED BLOOD COUNTS AND DIFF.) APPENDIX B-3 Na 139 mmol/L 136-145 [facility] ([facility] CLASSIFICATION CHOLESTEROL FO R ADULTS [...] APPENDIX B-3 BUN/Creatinine Ratio 18.5 CALC [facility] ([facility] CLASSIFICATION CHOLESTEROL FO [...] HCT IS 5% LESS SOURCE FOR DATA: Bubbly 1800 OPERATION MANUAL( AUTOMATED BLOOD COUNTS AND DIFF.) APPENDIX B-3 CL 104.2 mmol/L 98.0-107.0 [facility] ([facility] CLASSIFICATION CHOLESTEROL FO R [...] APPENDIX B-3 Co2 27.5 mmol/L 22.0-29.0 [facility] ([facility] CLASSIFICATION CHOLESTEROL FO R ADULTS [...] HCT IS 5% LESS SOURCE FOR DATA: Bioxodes DYN 1800 OPERATION MANUAL( AUTOMATED BLOOD COUNTS AND DIFF.) APPENDIX B-3 CA 9.2 mg/dL 8.6-10.2 [facility] CLASSIFICATION CHOLESTEROL FO [...] HCT IS 5% LESS SOURCE FOR DATA: Bubbly 1800 OPERATION MANUAL( AUTOMATED BLOOD COUNTS AND DIFF.) APPENDIX B-3 Globulin 2.5 CALC [facility] ([facility] CLASSIFICATION CHOLESTEROL FO R [...] APPENDIX B-3 A/G Ratio 1.5 CALC [facility] ([facility] CLASSIFICATION CHOLESTEROL FO [...] DIFF.) APPENDIX B-3 Alb 3.8 g/dL 3.4-4.8 [facility] ([facility] CLASSIFICATION CHOLESTEROL FO [...] APPENDIX B-3 Alt (SGPT) 18 U/L 0-41 [facility] ([facility] CLASSIFICATION CHOLESTEROL [...] HCT IS 5% LESS SOURCE FOR DATA: Bioxodes DYN 1800 OPERATION MANUAL( AUTOMATED BLOOD COUNTS AND DIFF.) APPENDIX B-3 Alp 63.7 U/L 35-129 [facility] ([facility] CLASSIFICATION CHOLESTEROL FO [...] HCT IS 5% LESS SOURCE FOR DATA: Bioxodes DYN 1800 OPERATION MANUAL( AUTOMATED BLOOD COUNTS [...] B-3 Tbili 0.49 mg/dL 0.0-1.2 [facility] ([facility] CLASSIFICATION CHOLESTEROL FO R ADULTS [...] HCT IS 5% LESS SOURCE FOR DATA: Bubbly 1800 OPERATION MANUAL( AUTOMATED BLOOD COUNTS AND DIFF.) APPENDIX B-3 Ast (Sgot) 20 U/L 0-40 [facility] ([facility] CLASSIFICATION CHOLESTEROL FO R ADULTS [...] HCT IS 5% LESS SOURCE FOR DATA: Bioxodes DYN 1800 OPERATION MANUAL( AUTOMATED BLOOD COUNTS [...] HCT IS 5% LESS SOURCE FOR DATA: Bioxodes DYN 1800 OPERATION MANUAL( AUTOMATED BLOOD COUNTS AND DIFF.) APPENDIX B-3 eGFR Non-Afr. [place] 63 # [facility] ([facility] CKD-EPI ID Date Data Source [id number] 06/20/2019 09:17:00 AM EST [facility] ([facility] Name Value Range Interpretation Code Description Data Su rce(s) Supporting Document(s) RBC 4.48 10E6/uL 4.20-6.30 [facility] ([facility] CLASSIFICATION CHOLESTEROL FO R ADULTS [...] HCT IS 5% LESS SOURCE FOR DATA: Bubbly 1800 OPERATION MANUAL( AUTOMATED BLOOD COUNTS AND DIFF.) APPENDIX B-3 WBC 6.7 10E3/uL 4.1-10.9 [facility] ([facility] CLASSIFICATION CHOLESTEROL FO R ADULTS [...] IS 5% LESS SOURCE FOR DATA: DAMARIS CDP 1800 OPERATION MANUAL( AUTOMATED BLOOD COUNTS AND DIFF.) APPENDIX B-3 HGB 13.8 g/dL 12.0-18.0 [facility] ([facility] CLASSIFICATION CHOLESTEROL [...] HCT IS 5% LESS SOURCE FOR DATA: Bioxodes DYN 1800 OPERATION MANUAL( AUTOMATED BLOOD COUNTS AND DIFF.) APPENDIX B-3 HCT 41.2 % 37.0-51.0 [facility] ([facility] CLASSIFICATION [...] DIFF.) APPENDIX B-3 MCH 30.8 pg 26.0-32.0 [facility] ([facility] CLASSIFICATION [...] HCT IS 5% LESS SOURCE FOR DATA: Bubbly 1800 OPERATION MANUAL( AUTOMATED BLOOD COUNTS AND [...] HCT IS 5% LESS SOURCE FOR DATA: Bubbly 1800 OPERATION MANUAL( AUTOMATED BLOOD COUNTS AND [...] DIFF.) APPENDIX B-3 PLT 199 10E3/uL 140-440 [facility] ([facility] CLASSIFICATION CHOLESTEROL FO R ADULTS [...] APPENDIX B-3 MCHC 33.5 g/dL 31.0-36.0 [facility] ([facility] CLASSIFICATION CHOLESTEROL FO [...] HCT IS 5% LESS SOURCE FOR DATA: Bubbly 1800 OPERATION MANUAL( AUTOMATED BLOOD COUNTS AND [...] HCT IS 5% LESS SOURCE FOR DATA: Bioxodes DYN 1800 OPERATION MANUAL( AUTOMATED BLOOD COUNTS [...] HCT IS 5% LESS SOURCE FOR DATA: Bioxodes DYN 1800 OPERATION MANUAL( AUTOMATED BLOOD COUNTS AND DIFF.) APPENDIX B-3 Lym# 1.8 10E3/uL 0.6-4.1 [facility] ([facility] CLASSIFICATION CHOLESTEROL FO R ADULTS [...] HCT IS 5% LESS SOURCE FOR DATA: Bioxodes DYN 1800 OPERATION MANUAL( AUTOMATED BLOOD COUNTS [...] HCT IS 5% LESS SOURCE FOR DATA: Bubbly 1800 OPERATION MANUAL( AUTOMATED BLOOD COUNTS AND [...] HCT IS 5% LESS SOURCE FOR DATA: Bioxodes DYN 1800 OPERATION MANUAL( AUTOMATED BLOOD COUNTS AND DIFF.) APPENDIX B-3 MXD# 0.6 10E3/uL 0.0-1.8 [facility] ([facility] CLASSIFICATION CHOLESTEROL FO R ADULTS [...] HCT IS 5% LESS SOURCE FOR DATA: Bubbly 1800 OPERATION MANUAL( AUTOMATED BLOOD COUNTS AND DIFF.) APPENDIX B-3 MPV 11.4 fL 9.0-13.0 [facility] CLASSIFICATION CHOLESTEROL FO [...] HCT IS 5% LESS SOURCE FOR DATA: Bubbly 1800 OPERATION MANUAL( AUTOMATED BLOOD COUNTS AND DIFF.) APPENDIX B-3 ID Date Data Source [id number] 06/20/2019 02:24:[address] [facility] Name Value Range Interpretation Code Description Data Su rce(s) Supporting Document(s) Hemoglobin A1c/Hemoglobin.total in Blood 9.5 % 4.4 - 6.[address] [facility] {A1]{HB] Procedure Social History Code Duration Value Status Description Data Source(s ) Smoking 02/14/2020 12:00:00 AM EDT Patient has never smoked co mpleted Patient has never smoked [facility] ([facility] ) Vital Signs ID Date Data Source UNK Name Value Range Interpretation Code Description Data Source(s) Oxygen saturation in Arterial blood by Pulse oximetry 96 % 96 % [facility] ([facility] Body mass index (BMI) [Ratio] 35.7 kg/m2 35.7 k g/m2 [facility] ([facility] [place] body weight 130 [lb_av] 130 [lb_av] [facility] ([facility] Body weight 221.00 [lb_av] 221.00 [lb_av] [facility] ([facility] Body height 66 [in_i] 66 [in_i] [facility] ([facility] 5'6" Respiratory rate 18 /min 18 /min [facility] ( [facility] Heart rate 90 /min 90 /min [facility] ([facility] Body temperature 97.9 [degF] 97.9 [degF] [facility] ([facility] Diastolic blood pressure 52 mm[Hg] 52 mm[Hg] [facility] ([facility] Systolic blood pressure 102 mm[Hg] 102 mm[Hg] M EDENT ([facility] Oxygen saturation in Arterial blood by Pulse oximetry 97 % 97 % [facility] ([facility] ([place]), (Room Air) Body mass index (BMI) [Ratio] 36.0 kg/m2 36.0 k g/m2 [facility] ([facility] [place] body weight 130 [lb_av] 130 [lb_av] [facility] ([facility] Body weight 223.00 [lb_av] 223.00 [lb_av] [facility] ([facility] Body height 66 [in_i] 66 [in_i] [facility] ([facility] 5'6" Respiratory rate 16 [...] k g/m2 [facility] ([facility] [place] body weight 130 [lb_av] 130 [lb_av] [facility] ([facility] Body weight 225.00 [lb_av] 225.00 [lb_av] [facility] ([facility] Body height 66 [in_i] 66 [in_i] [facility] ([facility] 5'6" Respiratory rate [...] k g/m2 [facility] ([facility] [place] body weight 130 [lb_av] 130 [lb_av] [facility] ([facility] Body weight 227.00 [lb_av] 227.00 [lb_av] [facility] ([facility] Body height 66 [in_i] 66 [in_i] [facility] ([facility] 5'6" Respiratory rate 18 [...] k g/m2 [facility] ([facility] [place] body weight 130 [lb_av] 130 [lb_av] [facility] ([facility] Body weight 224.00 [lb_av] 224.00 [lb_av] [facility] ([facility] Body height 66 [in_i] 66 [in_i] [facility] ([facility] 5'6" Oxygen saturation in Arterial blood by Pulse oximetry 95 % 95 % [facility] ([facility] ([place]), (Room Air) Body mass index (BMI) [Ratio] 36.6 kg/m2 36.6 k g/m2 [facility] ([facility] Body weight 227.00 [lb_av] 227.00 [lb_av] [facility] T ([facility] Body height 66 [in_i] 66 [in_i] [facility] ([facility] 5'6" Respiratory rate 20 [...] weight 224.00 [lb_av] 224.00 [lb_av] [facility] ([facility] Body height 66 [in_i] 66 [in_i] [facility] ([facility] 5'6" Respiratory rate 18 [...] Pulse oximetry 98 % 98 % [facility] ([facility] Body mass index (BMI) [Ratio] 36.3 kg/m2 36.3 k g/m2 [facility] ([facility] Body weight 225.00 [lb_av] 225.00 [lb_av] [facility] ([facility] Body height 66 [in_i] 66 [in_i] [facility] ([facility] 5'6" Respiratory rate 14 /min 14 /min [facility] ( [facility] Heart rate 68 /min 68 /min [facility] ([facility] Body temperature 97.8 [...] weight 226.00 [lb_av] 226.00 [lb_av] [facility] ([facility] Body height 66 [in_i] 66 [in_i] [facility] ([facility] 5'6" Respiratory rate 14 [...] [facility] ID Date Data Source [id number] 07/10/2020 07:56:38 AM [facility] Name Value Range Interpretation Code Description Data Source(s) WEIGHT RECORDED 215.80 pounds 215.80 pounds [facility] Height [address] [facility]
--- NOTE | 2020-07-14 01:54 | REPVR ---
PROCEDURE INFORMATION: Exam: US Abdomen, Limited; Right Upper Quadrant Exam date and time: 07/14/2020 1:17 AM Age: 74 years old Clinical indication: Abnormal findings; Abnormal lab test; Elevated liver enzymes; Prior surgery; Surgery date: 6+ months; Surgery type: Cholecystectomy; Additional info: Transaminitis TECHNIQUE: Imaging protocol: US abdomen. Real time ultrasound with image documentation. Limited exam focused on the right upper quadrant. COMPARISON: No relevant prior studies available. FINDINGS: Liver: Echogenic liver indicating hepatic steatosis. Gallbladder: Cholecystectomy. Common bile duct: Normal. No stones. No dilation. Pancreas: Slightly prominent pancreas, correlate with pancreatic labs, although limited view. Right kidney: Unremarkable 12 cm right kidney. IMPRESSION: 1. Echogenic liver indicating hepatic steatosis. 2. Slightly prominent pancreas, correlate with pancreatic labs, although limited view. Electronically signed by: Curt Levy On 07/14/2020 01:54:16 AM
[2020-07-14 01:59] LABS: RSV AMPLIFICATION NEGATIVE (NEGATIVE)
--- NOTE | 2020-07-14 02:22 | HPEPDOC ---
[facility] Medical History & Physical Date of Admission Jul 14, 2020 Date of Service: Jul 14, 2020 Primary Care Physician: Elvis Brown MD Attending Physician: BOAZ FINNEGAN MD History and Physical TIME OF SERVICE: 105am CHIEF COMPLAINT: called EMS HISTORY OF PRESENT ILLNESS: This 74 yr old F was diagnosed with COVID 19 on Jul 08 at an outside facility; currently she denies having a cough, dyspnea or runny nose but has had a poor appetite and diarrhea. She has been feeling tired of all this COVID and told her that she had been thinking about sitting in the tub and cutting her wrists to commit suicide for a few days, therefore he called EMS. The patients niece Jas also called the ER to check on her Aunt and added that a few days ago the patient also told her that while she was in the bath tub she thought about cutting her wrists to commit suicide and then yesterday she told her that she was feeling suicidal. Per Jas her Aunt has been struggling with her mental health after having a miscarriage. The patient is on sertraline and reported being admitted to the in-patient mental health unit twice in the 80s. Pending evaluation by a Psychiatrist she had two episodes of hypoglycemia with sugars in the 40s, therefore requested in-patient medical admission for management of hypoglycemia. last took her Tresiba & empagliflozin on the morning of Jul 13. REVIEW OF SYSTEMS: 12-point review of systems negative except as listed in HPI PAST MEDICAL/ SURGICAL HISTORY: HTN DM Anxiety Depression Obesity Cholecystectomy Appendectomy Hysterectomy SOCIAL HISTORY: She doesnt smoke FAMILY HISTORY: n/a ALLERGIES: Please see below. HOME MEDICATIONS: Please see below. PHYSICAL EXAMINATION: Vital Signs Date Time Temp Pulse Resp B/P (MAP) Pulse Ox O2 Delivery O2 Flow Rate FiO2 07/13/20 15:42 97.8 74 26 171/87 95 Room Air GENERAL APPEARANCE: well nourished / well developed/ NAD HEENT: N-95 mask covering lower face CARDIOVASCULAR: RRR/NMRG LUNGS: CTAB on RA ABDOMEN: obese MUSCULOSKELETAL: slim extremities/ CORNELL x 4 NEUROLOGICAL: CN2-12 intact / speech not dysarthric PSYCHIATRIC: A&O x 3 / able to understand and follow commands LABORATORY DATA: 07/13/20 16:14 Nucleated Red Blood Cells % (auto) 0.0, Anion Gap 8, Glomerular Filtration Rate 49.0, Calcium Level 8.4L, Total Bilirubin 0.5, Direct Bilirubin 0.2, Aspartate Amino Transf (AST/SGOT) 60H, Alanine Aminotransferase (ALT/SGPT) 59, Alkaline Phosphatase 68, Total Protein 6.6, Albumin 2.8L, Albumin/Globulin Ratio 0.7L, Thyroid Stimulating Hormone (TSH) 0.611, Salicylates Level < 1.7L, Urine Opiates Screen POSITIVEH, Urine Methadone Screen NEGATIVE, Acetaminophen Level < 2.0L, Urine Barbiturates Screen NEGATIVE, Urine Phencyclidine Screen NEGATIVE, Urine Amphetamines Screen NEGATIVE, Urine Benzodiazepines Screen NEGATIVE, Urine Cocaine Metabolite Screen NEGATIVE, Urine Cannabinoids Screen NEGATIVE, Ethyl Alcohol Level < 0.003 07/13/20 16:54: Bedside Glucose (Misc Panel) 55L 07/13/20 17:10: Bedside Glucose (Misc Panel) 59L 07/13/20 17:36: Bedside Glucose (Misc Panel) 187H 07/13/20 18:32: Bedside Glucose (Misc Panel) 236H 07/13/20 20:37: Bedside Glucose (Misc Panel) 140H 07/13/20 23:55: Bedside Glucose (Misc Panel) 45L 07/14/20 01:13: Coronavirus (COVID-19)(PCR) POSITIVEA, Influenza Type A (RT-PCR) NEGATIVE, Influenza Type B (RT-PCR) NEGATIVE, Respiratory Syncytial Virus (PCR) NEGATIVE 07/14/20 01:59: Bedside Glucose (Misc Panel) 240H IMAGING: n/a MICROBIOLOGY: n/a ASSESSMENT: is a 74 yr old who was recently diagnosed with COVID-19 w a hx of IDDM, HTN, anxiety, DM and obesity who was brought in to the ER for evaluation of SI and found to be hypoglycemic while awaiting Psychiatric evaluation. PLAN: 1. Hypoglycemia / IDDM She has been eating less recently. She last took her Tresiba, which has a half life of 24h, at 8AM on Jul 13 Plan: admit to PCU under observation /f/u FSBS Q4H, f/u A1C / start D5NS / hypoglycemia protocol /SSI / hold Tresiba & empagliflozin 2. Transaminitis Likely due to MINA (her risk factors include obesity and DM) Plan: f/u liver US and Hep screen 3. COVID+ Her main symptoms are GI Plan: f/u repeat COVID test 4. Opiate use disorder ? Her UDS was positive despite 5. Resistant HTN Plan: Bisoprolol, Hydrochlorothiazide, Quinapril 6. Depression w SI Plan: 1:1 sitter / c/w Sertraline/ will ask day time team to consult Psych 7. Obesity BMI of 34 complicates care Plan: f/u A1C / the patient can f/u w his or her PCP for sleep apnea screening, performance engineer consult, to discuss staring Saxenda, which is indicated in patients with a BMI >27 with co-existing DM, HTN or dyslipidemia to help with weight control as an adjunct to exercise DVT px w Lovenox Dispo: IMHU vs home after at least 2 midnights stay Home Medications Scheduled Atorvastatin Calcium (Atorvastatin Calcium) 40 Mg Tablet, 40 MG PO QHS Bisoprolol Fumarate (Bisoprolol Fumarate) 5 Mg Tablet, 5 MG PO DAILY Doxazosin Mesylate (Doxazosin) 4 Mg Tablet, 4 MG PO DAILY Empagliflozin (Jardiance) 10 Mg Tablet, 10 MG PO DAILY Hydrochlorothiazide (Hydrochlorothiazide) 25 Mg Tablet, 25 MG PO DAILY Levofloxacin (Levofloxacin) 750 Mg Tablet, 750 MG PO DAILY STARTED 07/09/20 X 5 DAYS Omeprazole (Omeprazole) 40 Mg Capsule.dr, 40 MG PO DAILY Quinapril Hcl (Accupril) 40 Mg Tablet, 60 MG PO DAILY Sertraline HCl (Sertraline HCl) 25 Mg Tablet, 25 MG PO QHS [triseba] , 78 UNITS SQ BID Allergies Coded Allergies: No Known Allergies (Unverified , 07/13/20) A-FIB/CHADSVASC A-FIB History Current/History of A-Fib/PAF?: No Current PO Anticoag Therapy: No BOAZ FINNEGAN MD Jul 14, 2020 02:22
[2020-07-14 02:42] LABS: LIPASE 93 U/L (73-393)
[2020-07-14] MEDS: HumaLOG INSULIN (NovoLOG) PER UNIT SC SCH ×4 (04:00→17:08)
[2020-07-14 08:16] LABS: HEMATOCRIT 41.2 % (36.0-47.0); HEMOGLOBIN 13.9 g/dl (12.0-15.5); MEAN CORPUSCULAR HEMOGLOBIN 30.2 pg (27.0-33.0); MEAN CORPUSCULAR HGB CONC 33.7 g/dl (32.0-36.5); MEAN CORPUSCULAR VOLUME 89.6 fl (80.0-96.0); PLATELET COUNT, AUTOMATED 176 10^3/uL (150-450); WHITE BLOOD COUNT 9.8 10^3/uL (4.0-10.0)
[2020-07-14 08:31] LABS: BLOOD UREA NITROGEN 20 MG/DL (7-18); CALCIUM LEVEL 8.5 MG/DL (8.8-10.2); CARBON DIOXIDE LEVEL 26 MEQ/L (21-32); CHLORIDE LEVEL 103 MEQ/L (98-107); CREATININE FOR GFR 1.01 MG/DL (0.55-1.30); GLOMERULAR FILTRATION RATE 56.9 (>39); GLUCOSE, FASTING 120 MG/DL (70-100); POTASSIUM SERUM 3.5 MEQ/L (3.5-5.1); SODIUM LEVEL 138 MEQ/L (136-145)
[2020-07-14] MEDS: ENOXAPARIN 40MG/0.4ML SYRINGE (J1650 PER 10MG) SC SCH (09:18)
[2020-07-14] MEDS: OMEPRAZOLE 20 MG CAP PO SCH (09:19)
[2020-07-14] MEDS: hydroCHLOROthiazide 25 MG TAB PO SCH (09:19)
[2020-07-14] MEDS: bisoproloL fumarate 5 MG TAB PO SCH (09:19)
[2020-07-14] MEDS: DOXAZOSIN MESYLATE 4 MG TAB PO SCH (09:20)
[2020-07-14] MEDS: QUINAPRIL 20 MG TAB PO SCH (09:20)
[2020-07-14 11:03] LABS: HEMOGLOBIN A1c 7.9 %
[2020-07-14 13:41] VITALS: BP 148/67
[2020-07-14 13:51] LABS: HEPATITIS B SURFACE ANTIGEN NEGATIVE (NEGATIVE)
[2020-07-14 14:18] LABS: HEPATITIS B CORE ANTIBODY IGM NEGATIVE (NEGATIVE); HEPATITIS C VIRUS ABY INDEX < 0.0 INDEX (<0.8)
[2020-07-14 14:21] LABS: HEPATITIS A ANTIBODY IGM NEGATIVE (NEGATIVE)
[2020-07-14] MEDS: ACETAMINOPHEN TAB 650MG DOSE (2X325MG) PO PRN ×2 (17:35→20:25)
[2020-07-14 19:46] VITALS: BP 130/59
--- NOTE | 2020-07-14 20:33 | ECGEPIP ---
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
[2020-07-14] MEDS ORDERED: HumaLOG INSULIN (NovoLOG) PER UNIT SC SCH (21:00)
[2020-07-14] MEDS ORDERED: ATORVASTATIN 20 MG TAB PO SCH (21:00)
[2020-07-14] MEDS ORDERED: SERTRALINE HCL 25 MG TABLET PO SCH (21:00)
[2020-07-15 04:00] VITALS: BP 125/57
[2020-07-15] MEDS: ACETAMINOPHEN TAB 650MG DOSE (2X325MG) PO PRN ×2 (04:09→12:03)
[2020-07-15] MEDS: HumaLOG INSULIN (NovoLOG) PER UNIT SC SCH ×2 (07:26→12:00)
[2020-07-15 08:00] VITALS: BP 165/74
[2020-07-15] MEDS ORDERED: FLUBLOK(EGG FREE)(QUAD)INFLUENZA VACC 0.5ML SYRINGE 18YRS & OLDER IM ONE (09:00)
[2020-07-15] MEDS: ENOXAPARIN 40MG/0.4ML SYRINGE (J1650 PER 10MG) SC SCH (09:37)
[2020-07-15] MEDS: hydroCHLOROthiazide 25 MG TAB PO SCH (09:37)
[2020-07-15 09:38] VITALS: BP 165/74
[2020-07-15] MEDS: bisoproloL fumarate 5 MG TAB PO SCH (09:38)
[2020-07-15] MEDS: OMEPRAZOLE 20 MG CAP PO SCH (09:38)
[2020-07-15] MEDS: QUINAPRIL 20 MG TAB PO SCH (09:38)
[2020-07-15] MEDS: DOXAZOSIN MESYLATE 4 MG TAB PO SCH (09:39)
--- NOTE | 2020-07-15 09:40 | CR ---
PSYCHIATRIC CONSULTATION DATE: 07/14/2020 REASON FOR CONSULTATION: This is a video assessment. She is seen in the presence of staff. I have been asked to see her by the hospitalist, as the patient has indicated she has been feeling suicidal. The patient is interviewed. Chart is reviewed. CHIEF COMPLAINT: Feels depressed. SUBJECTIVE: She is 74 years old. She states she and her have been together for many years. She was diagnosed with COVID apparently a week or so ago, overall doing fairly well, has several medical problems. She had two bouts of hypoglycemia with glucose in the 40s. She had, at some point recently, indicated to her that she was feeling depressed, was thinking of sitting in the tub and cutting her wrists in order to kill herself. Said she was "tired of all this COVID." Says does not think that she would kill herself if she were home. Was admitted because she became hypoglycemic after she had gotten to the emergency room (ER), apparently. She has a history of depression/anxiety in the past. Says was admitted to [facility], in the s. I had seen her in the outpatient clinic for a few visits in 2007. She says "I've been doing okay despite the diagnosis." Denies feeling depressed pervasively. She is on sertraline 25 mg daily. According to the ER report, patient's niece had informed the ER that the patient has been feeling suicidal and that she had felt like this apparently often lately. The patient denies that she had gotten into the tub. Says thought of doing so, but did not. Has recently been feeling more tired than usual, poor appetite. Says this has been ever since she was diagnosed with COVID. PAST PSYCHIATRIC HISTORY: As indicated above. Was hospitalized in the 80s apparently. No recent outpatient care. MEDICAL HISTORY: She has several medical problems, includin. Diabetes mellitus. 2. Hypertension. 3. Obesity. SUBSTANCE ABUSE HISTORY: None significantly. MENTAL STATUS EXAMINATION: She is lying in bed, feels somewhat drowsy at times, but was able to engage in an interview, but felt it difficult at times keeping awake. No agitation. Some psychomotor retardation. She is coherent. Affect restricted in range. Denies any suicidal thoughts or intents at present. Has had them recently. No homicidal ideas or intents. No evidence of any psychosis. She is somewhat drowsy at present, but oriented to place, person, time. Has trouble spelling the word house backwards or doing a three digit span backwards as well. Judgment and insight possibly compromised. ASSESSMENT: 1. Adjustment disorder with depressed mood. 2. Rule out major depressive disorder. Feels depressed, is COVID positive and that is an added stressor. Currently unclear if this is delirium or that she is feeling tired. Unclear if this is the impact of COVID, either, in terms of her sensorium. RECOMMENDATIONS: Given the above and the current stress, particularly COVID, and her mood and recent suicidal thoughts, I would suggest the patient is hospitalized psychiatrically once she is medically stable, for further management and treatment. She suggests that she is prepared to consider it, probably. Thank you for the consultation. If any questions, please call. The assessment took 40 minutes.
--- NOTE | 2020-07-15 18:25 | DS.PDOC ---
Discharge Summary General Date of Admission Jul 14, 2020 at 00:19 Date of Discharge 07/15/2020 Primary Care Physician: Elvis Brown MD Attending Physician: ZAY DING MD Discharge Summary PROCEDURES PERFORMED DURING STAY: None. ADMITTING/DISCHARGE DIAGNOSES: Major depressive disorder Covid in 19 Type 2 diabetes Transient hypoglycemia Hypertension Anxiety Transaminitis COMPLICATIONS/CHIEF COMPLAINT: Covid+,Hypoglycemia,Suicidal Ideation. HISTORY OF PRESENT ILLNESS/HOSPITAL COURSE: This 74 yr old F was diagnosed with COVID 19 on Jul 08 at an outside facility; currently she denies having a cough, dyspnea or runny nose but has had a poor appetite and diarrhea. She has been feeling tired of all this COVID and told her that she had been thinking about sitting in the tub and cutting her wrists to commit suicide for a few days, therefore he called EMS. The patients nisteffi Mark also called the ER to check on her Aunt and added that a few days ago the patient also told her that while she was in the bath tub she thought about cutting her wrists to commit suicide and then yesterday she told her that she was feeling suicidal. Per Jas her Aunt has been struggling with her mental health after having a miscarriage. The patient is on sertraline and reported being admitted to the in- patient mental health unit twice in the 80s. Pending evaluation by a Psychiatrist she had two episodes of hypoglycemia with sugars in the 40s, therefore requested in-patient medical admission for management of hypoglycemia. last took her Tresiba & empagliflozin on the morning of Jul 13. Patient was monitored throughout the day with no further episodes of hypoglycemia and psychiatry was consulted. Discharge was delayed secondary to bed availability in [facility]. DISCHARGE MEDICATIONS: Please see below. ALLERGIES: Please see below. PHYSICAL EXAMINATION ON DISCHARGE: VITAL SIGNS: Please see below. General: Pleasant, NAD HEENT: NC, AT. EOMI, no scleral icterus. No pharyngeal erythema, mucous membranes moist. Neck: No lymphadenopathy or JVD CV: RRR, Normal S1 and S2. No murmurs, gallops, or rubs. Resp: CTAB with full breath sounds. No wheezes, crackles, or rhonchi. No dullness to percussion. Abdomen: Bowel sounds present. Soft, NT, ND. Extremities: No swelling or edema. LABORATORY DATA: Please see below. IMAGIN07/14/20 liver ultrasound: 1. Echogenic liver indicating hepatic steatosis. 2. Slightly prominent pancreas, correlate with pancreatic labs, although limited view. PROGNOSIS: fair. ACTIVITY: As tolerated DIET: As tolerated DISCHARGE PLAN: Home DISPOSITION: 01 Home, Self-Care. DISCHARGE INSTRUCTIONS: 1. Please return to Hospital symptoms worsen 2. Follow-up with PCP once discharged from [facility] in one week DISCHARGE CONDITION: Stable. TIME SPENT ON DISCHARGE: 17 minutes. Vital Signs/I&Os Vital Signs Date Time Temp Pulse Resp B/P (MAP) Pulse Ox O2 Delivery O2 Flow Rate FiO2 07/15/20 09:38 165/74 07/15/20 09:38 68 07/15/20 08:00 98.5 19 90 Room Air 07/14/20 11:15 2.0 I&O- Last 24 Hours up to 6 AM 07/15/20 06:00 Intake Total 240 ml Balance 240 ml Laboratory Data Labs 24H Laboratory Tests 2 07/14/20 20:07: Bedside Glucose (Misc Panel) 111H 07/14/20 22:48: Bedside Glucose (Misc Panel) 60L 07/15/20 00:29: Bedside Glucose (Misc Panel) 131H 07/15/20 07:23: Bedside Glucose (Misc Panel) 83 07/15/20 12:01: Bedside Glucose (Misc Panel) 117H FSBS Laboratory Tests Test 07/14/20 20:07 07/14/20 22:48 07/15/20 00:29 07/15/20 07:23 Range/Units Bedside Glucose (Misc Panel) 111 60 131 83 83-110 MG/DL Test 07/15/20 12:01 Range/Units Bedside Glucose (Misc Panel) 117 83-110 MG/DL Discharge Medications Scheduled Atorvastatin Calcium (Atorvastatin Calcium) 40 Mg Tablet, 40 MG PO QHS, (Repor enrique) Bisoprolol Fumarate (Bisoprolol Fumarate) 5 Mg Tablet, 5 MG PO DAILY, (Reported) Doxazosin Mesylate (Doxazosin) 4 Mg Tablet, 4 MG PO DAILY, (Reported) Empagliflozin (Jardiance) 10 Mg Tablet, 10 MG PO DAILY, (Reported) Hydrochlorothiazide (Hydrochlorothiazide) 25 Mg Tablet, 25 MG PO DAILY, (Reported) Omeprazole (Omeprazole) 40 Mg Capsule.dr, 40 MG PO DAILY, (Reported) Quinapril Hcl (Accupril) 40 Mg Tablet, 60 MG PO DAILY, (Reported) Sertraline HCl (Sertraline HCl) 25 Mg Tablet, 25 MG PO QHS, (Reported) Allergies Coded Allergies: No Known Allergies (Unverified , 07/13/20) GME ATTESTATION GME ATTESTATION My faculty preceptor for this patient encounter was physically present during the encounter and was fully available. All aspects of the patient interview, examination, medical decision making process, and medical care plan development were reviewed and approved by the faculty preceptor. The faculty preceptor is aware and concurs with the plan as stated in the body of this note and will attest to such by his/her cosignature. ATTENDING NOTE I, Zay Ding MD, have independently examined this patient and performed my own physical exam, as well as reviewed the documentation and edited where nece ssary. I have discussed in detail with the resident / student the findings and plan of treatment as documented by the resident / student and edited their note. I agree with their findings and treatment plan and have edited their documentation. ALEXANDRU DELGADO DO Jul 15, 2020 18:25 ZAY DING MD Jul 18, 2020 12:39
== END 2020-07-15 13:48 ==
LOC: M ED 15:33 → M ED INP 07-14 00:19 → M 4MAIN 07-14 14:18
PROVIDERS: ADMIT Internal Medicine; ATTEND Internal Medicine
DX: R45.851 Suicidal ideations (principal); F32.9 Major depressive disorder, single episode, unspecified; U07.1 COVID-19; E11.9 Type 2 diabetes mellitus without complications; E16.2 Hypoglycemia, unspecified; I10 Essential (primary) hypertension; F41.9 Anxiety disorder, unspecified; R74.01 Elevation of levels of liver transaminase levels; E66.9 Obesity, unspecified; Z79.899 Other long term (current) drug therapy

== ENCOUNTER 2020-07-15 12:00 | Inpatient (IN) | payer MEDICARE ==
[~2020-07-15] VITALS: Ht 172.7 cm; Wt 98.7 kg
[~2020-07-15 12:00] MED LIST: ACCU40TA PO; ATOR40TA75 PO; BISO5TAB14 PO; DOXA1TAB67 PO; HYDR25TAB PO; JARD1TAB PO; LEVO750T13 PO; OMEP40CA97 PO; SERT25TA21 PO; triseba SQ
[2020-07-15] MEDS ORDERED: MAALOX 30 ML SUSP *UDC PO PRN (12:30)
[2020-07-15] MEDS ORDERED: MOM 30ML SUSPENSION UDC PO PRN (12:30)
[2020-07-15] MEDS ORDERED: traZODone 50 MG TAB PO PRN (12:30)
--- OUTSIDE RECORDS SUMMARY | 2020-07-15 14:12 | CCD ---
Author Author [facility] Organization [facility] Address Unknown Phone Unavailable Care Team Providers Care Telephone Collector Name Role Phone Barraclough, Michelle PA Unavailable Unavailable Barraclough, Michelle PA Unavailable Unavailable Barraclough, Michelle PA Unavailable Unavailable Barraclough, Michelle PA Unavailable Unavailable Barraclough, Michelle PA Unavailable Unavailable Barraclough, Michelle PA Unavailable Unavailable Fish, J Elvis Unavailable Unavailable Fish, J Elvis Unavailable Unavailable Fish, J Elvis Unavailable Unavailable Fish, J Elvis Unavailable Unavailable Fish, J Elvis Unavailable Unavailable Fish, J Elvis Unavailable Unavailable Fish, J Elvis Unavailable Unavailable Fish, J Elvis Unavailable Unavailable Fish, J Elvis Unavailable Unavailable Fish, J Elvis Unavailable Unavailable Fish, J Elvis Unavailable Unavailable Fish, J Elvis Unavailable Unavailable Fish, J Elvis Unavailable Unavailable Fish, J Elvis Unavailable Unavailable Fish, J Elvis Unavailable Unavailable Fish, J Elvis Unavailable Unavailable Fish, J Elvis Unavailable Unavailable Fish, J Elvis Unavailable Unavailable Fish, J Elvis Unavailable Unavailable Fish, J Elvis Unavailable Unavailable Fish, J Elvis Unavailable Unavailable Fish, J Elvis Unavailable Unavailable Fish, J Elvis Unavailable Unavailable Fish, J Elvis Unavailable Unavailable Fish, J Elvis Unavailable Unavailable Fish, J Elvis Unavailable Unavailable Fish, J Elvis Unavailable Unavailable Fish, J Elvis Unavailable Unavailable Fish, J Elvis Unavailable Unavailable Fish, J Elvis Unavailable Unavailable Fish, J Elvis Unavailable Unavailable Fish, J Elvis Unavailable Unavailable Fish, J Elvis Unavailable Unavailable Fish, J Elvis Unavailable Unavailable Fish, J Elvis Unavailable Unavailable Fish, J Elvis Unavailable Unavailable Fish, J Elvis Unavailable Unavailable Fish, J Elvis Unavailable Unavailable Fish, J Elvis Unavailable Unavailable Fish, J Elvis Unavailable Unavailable Fish, J Elvis Unavailable Unavailable Fish, J Elvis Unavailable Unavailable Fish, J Elvis Unavailable Unavailable Fish, J Elvis Unavailable Unavailable Fish, J Elvis Unavailable Unavailable Fish, J Elvis Unavailable Unavailable Fish, J Elvis Unavailable Unavailable Fish, J Elvis Unavailable Unavailable Fish, J Elvis Unavailable Unavailable Fish, J Elvis Unavailable Unavailable Fish, J Elvis Unavailable Unavailable Fish, J Elvis Unavailable Unavailable Fish, J Elvis Unavailable Unavailable Fish, J Elvis Unavailable Unavailable Fish, J Elvis Unavailable Unavailable Fish, J Elvis Unavailable Unavailable Fish, J Elvis Unavailable Unavailable Fish, J Elvis Unavailable Unavailable Fish, J Elvis Unavailable Unavailable Fish, J Elvis Unavailable Unavailable Fish, J Elvis Unavailable Unavailable Fish, J Elvis Unavailable Unavailable Fish, J Elvis Unavailable Unavailable Fish, J Elvis Unavailable Unavailable Fish, J Elvis Unavailable Unavailable Fish, J Elvis Unavailable Unavailable Fish, J Elvis Unavailable Unavailable Fish, J Elvis Unavailable Unavailable Fish, J Elvis Unavailable Unavailable Fish, J Elvis Unavailable Unavailable Fish, J Elvis Unavailable Unavailable Fish, J Elvis Unavailable Unavailable Fish, J Elvis Unavailable Unavailable Fish, J Elvis Unavailable Unavailable Fish, J Elvsi Unavailable Unavailable Fish, J Elvis Unavailable Unavailable Fish, J Elvis Unavailable Unavailable Fish, J Elvis Unavailable Unavailable Fish, J Elvis Unavailable Unavailable Fish, J Elvis Unavailable Unavailable Fish, J Elvis Unavailable Unavailable Fish, J Elvis Unavailable Unavailable Fish, J Elvis Unavailable Unavailable Fish, J Elvis Unavailable Unavailable Fish, J Elvis Unavailable Unavailable Amelia SMITH POWER PLANT SUPERVISOR Unavailable Unavailable Amelia SMITH POWER PLANT SUPERVISOR Unavailable Unavailable Amelia SMITH POWER PLANT SUPERVISOR Unavailable Unavailable Amelia SMITH POWER PLANT SUPERVISOR Unavailable Unavailable Amelia SMITH POWER PLANT SUPERVISOR Unavailable Unavailable Amelia SMITH POWER PLANT SUPERVISOR Unavailable Unavailable Amelia SMITH POWER PLANT SUPERVISOR Unavailable Unavailable SMITH, M ZOE POWER PLANT SUPERVISOR Unavailable Unavailable SMITH, M ZOE POWER PLANT SUPERVISOR Unavailable Unavailable SMITH, M ZOE POWER PLANT SUPERVISOR Unavailable Unavailable SMITH, M ZOE POWER PLANT SUPERVISOR Unavailable Unavailable SMITH, M ZOE POWER PLANT SUPERVISOR Unavailable Unavailable SMITH, M ZOE POWER PLANT SUPERVISOR Unavailable Unavailable SMITH, M ZOE POWER PLANT SUPERVISOR Unavailable Unavailable SMITH, M ZOE POWER PLANT SUPERVISOR Unavailable Unavailable SMITH, M ZOE POWER PLANT SUPERVISOR Unavailable Unavailable SMITH, M ZOE POWER PLANT SUPERVISOR Unavailable Unavailable SMITH, M ZOE POWER PLANT SUPERVISOR Unavailable Unavailable SMITH, M ZOE POWER PLANT SUPERVISOR Unavailable Unavailable SMITH, M ZOE POWER PLANT SUPERVISOR Unavailable Unavailable SMITH, M ZOE POWER PLANT SUPERVISOR Unavailable Unavailable SMITH, M ZOE POWER PLANT SUPERVISOR Unavailable Unavailable SMITH, M ZOE POWER PLANT SUPERVISOR Unavailable Unavailable SMITH, M ZOE POWER PLANT SUPERVISOR Unavailable Unavailable SMITH, M ZOE POWER PLANT SUPERVISOR Unavailable Unavailable SMITH, M ZOE POWER PLANT SUPERVISOR Unavailable Unavailable SMITH, M ZOE POWER PLANT SUPERVISOR Unavailable Unavailable SMITH, M ZOE POWER PLANT SUPERVISOR Unavailable Unavailable SMITH, M ZOE POWER PLANT SUPERVISOR Unavailable Unavailable SMITH, M ZOE POWER PLANT SUPERVISOR Unavailable Unavailable SMITH, M ZOE POWER PLANT SUPERVISOR Unavailable Unavailable SMITH, M ZOE POWER PLANT SUPERVISOR Unavailable Unavailable SMITH, M ZOE POWER PLANT SUPERVISOR Unavailable Unavailable SMITH, M ZOE POWER PLANT SUPERVISOR Unavailable Unavailable SMITH, M ZOE POWER PLANT SUPERVISOR Unavailable Unavailable SMITH, M ZOE POWER PLANT SUPERVISOR Unavailable Unavailable SMITH, M ZOE POWER PLANT SUPERVISOR Unavailable Unavailable SMITH, M ZOE POWER PLANT SUPERVISOR Unavailable Unavailable SMITH, M ZOE POWER PLANT SUPERVISOR Unavailable Unavailable SMITH, M ZOE POWER PLANT SUPERVISOR Unavailable Unavailable SMITH, M ZOE POWER PLANT SUPERVISOR Unavailable Unavailable SMITH, M ZOE POWER PLANT SUPERVISOR Unavailable Unavailable SMITH, M ZOE POWER PLANT SUPERVISOR Unavailable Unavailable SMITH, M ZOE POWER PLANT SUPERVISOR Unavailable Unavailable SMITH, M ZOE POWER PLANT SUPERVISOR Unavailable Unavailable SMITH, M ZOE POWER PLANT SUPERVISOR Unavailable Unavailable SMITH, M ZOE POWER PLANT SUPERVISOR Unavailable Unavailable SMITH, M ZOE POWER PLANT SUPERVISOR Unavailable Unavailable SMITH, M ZOE POWER PLANT SUPERVISOR Unavailable Unavailable SMITH, M ZOE POWER PLANT SUPERVISOR Unavailable Unavailable SMITH, M ZOE POWER PLANT SUPERVISOR Unavailable Unavailable SMITH, M ZOE POWER PLANT SUPERVISOR Unavailable Unavailable SMITH, M ZOE POWER PLANT SUPERVISOR Unavailable Unavailable SMITH, M ZOE POWER PLANT SUPERVISOR Unavailable Unavailable SMITH, M ZOE POWER PLANT SUPERVISOR Unavailable Unavailable SMITH, M ZOE POWER PLANT SUPERVISOR Unavailable Unavailable SMITH, M ZOE POWER PLANT SUPERVISOR Unavailable Unavailable SMITH, M ZOE POWER PLANT SUPERVISOR Unavailable Unavailable HOLLINGSWORTH, C ALEXANDRU Unavailable Unavailable Fish, J Elvis Unavailable Unavailable Fish, J Elvis Unavailable Unavailable Fish, J Elvis Unavailable Unavailable Fish, J Elvis Unavailable Unavailable Fish, J Elvis Unavailable Unavailable Fish, J Elvis Unavailable Unavailable Fish, J Elvis Unavailable Unavailable Fish, J Elvis Unavailable Unavailable Fish, J Elvis Unavailable Unavailable Fish, J Elvis Unavailable Unavailable Fish, J Elvis Unavailable Unavailable Fish, J Elvis Unavailable Unavailable Fish, J Elvis Unavailable Unavailable Fish, J Elvis Unavailable Unavailable Fish, J Elvis Unavailable Unavailable Fish, J Elvis Unavailable Unavailable Fish, J Elvis Unavailable Unavailable Fish, J Elvis Unavailable Unavailable Fish, J Elvis Unavailable Unavailable Fish, J Elvis Unavailable Unavailable Fish, J Elvis Unavailable Unavailable Fish, J Elvis Unavailable Unavailable Fish, J Elvis Unavailable Unavailable Fish, J Elvis Unavailable Unavailable Fish, J Elvis Unavailable Unavailable Fish, J Elvis Unavailable Unavailable Fish, J Elvis Unavailable Unavailable Fish, J Elvis Unavailable Unavailable Fish, J Elvis Unavailable Unavailable Fish, J Elvis Unavailable Unavailable Fish, J Elvis Unavailable Unavailable Fish, J Elvis Unavailable Unavailable Fish, J Elvis Unavailable Unavailable Fish, J Elvis Unavailable Unavailable Fish, J Elvis Unavailable Unavailable Fish, J Elvis Unavailable Unavailable Fish, J Elvis Unavailable Unavailable Fish, J Elvis Unavailable Unavailable Fish, J Elvis Unavailable Unavailable Fish, J Elvis Unavailable Unavailable Fish, J Elvis Unavailable Unavailable Fish, J Elvis Unavailable Unavailable Fish, J Elvis Unavailable Unavailable Fish, J Elvis Unavailable Unavailable Fish, J Elvis Unavailable Unavailable Fish, J Elvis Unavailable Unavailable Fish, J Elvis Unavailable Unavailable Fish, J Elvis Unavailable Unavailable Fish, J Elvis Unavailable Unavailable Fish, J Elvis Unavailable Unavailable Fish, J Elvis Unavailable Unavailable Fish, J Elvis Unavailable Unavailable Fish, J Elvis Unavailable Unavailable Fish, J Elvis Unavailable Unavailable Fish, J Elvis Unavailable Unavailable Fish, J Elvis Unavailable Unavailable Fish, J Elvis Unavailable Unavailable Fish, J Elvis Unavailable Unavailable Fish, J Elvis Unavailable Unavailable Fish, J Elvis Unavailable Unavailable Fish, J Elvis Unavailable Unavailable Fish, J Elvis Unavailable Unavailable Fish, J Elvis Unavailable Unavailable Fish, J Elvis Unavailable Unavailable Fish, J Elvis Unavailable Unavailable Fish, J Elvis Unavailable Unavailable Fish, J Elvis Unavailable Unavailable Fish, J Elvis Unavailable Unavailable Fish, J Elvis Unavailable Unavailable Fish, J Elvis Unavailable Unavailable Fish, J Elvis Unavailable Unavailable Fish, J Elvis Unavailable Unavailable Fish, J Elvis Unavailable Unavailable Fish, J Elvis Unavailable Unavailable Fish, J Elvis Unavailable Unavailable Fish, J Elvis Unavailable Unavailable Fish, J Elvis Unavailable Unavailable Fish, J Elvis Unavailable Unavailable Fish, J Elvis Unavailable Unavailable Fish, J Elvis Unavailable Unavailable Fish, J Elvis Unavailable Unavailable Fish, J Elvis Unavailable Unavailable Fish, J Elvis Unavailable Unavailable Fish, J Elvis Unavailable Unavailable Fish, J Elvis Unavailable Unavailable JOSESITO, B ELLA Unavailable Unavailable [...] is protected by Article 27-F of the [facility] Public Health law. If you continue you may have access to information: Regarding HIV / AIDS; Provided by facilities licensed or operated by the [facility] Office of Mental Health; or Provided by the [facility] Office for People With Developmental Disabilities. If such information is present, then the following [facility] mandated warning applies: This information has been [...] law may result in a fine or 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 sentence or both. A general authorization for the release of medical or other information is NOT sufficient authorization for further disc losure. Allergies and Adverse Reactions Type Description Substance Reaction Status Data Source(s ) No Known Allergies No Known Allergies [facility] Encounters Encounter Providers Location Date Indications Data Source(s ) Outpatient Attender: ELLA BELLAMYAttender: ALEXANDRU Bernal ant: Elvis Fish 07/08/2020 05:26:00 PM EST - 07/09/2020 02:50:00 PM [facility] Patient discharged. Outpatient Attender: Elvis FishReferrer: Elvis KevinConsultant: Elvis Fish 06/18/2020 12:20:00 PM EST - 06/18/2020 12:30:00 PM [facility] Outpatient Attender: Elvis Brown [facility] 06/18/2020 08:00:0 0 AM EST [facility] Outpatient Attender: ZOE SMITH NP [facility] 04/23 03:15:00 PM EST [facility] Outpatient Attender: Elvisflores Brown [facility] 03/18/2020 09:20:0 0 AM EDT [facility] ([facility] Outpatient Attender: Elvis FishReferrer: Elvisflores BrownConsultant: Elvis Fish 03/11/2020 11:59:00 AM EDT - 03/11/2020 12:09:00 PM EDT [facility] Outpatient Attender: Elvis Brown [facility] 01/30/2020 09:15:0 0 AM EDT [facility] ([facility] Outpatient Attender: Michelle DESIR [facility] 12/28/2019 09:30:00 AM EDT [facility] Outpatient Attender: Elvis BrownReferrer: Elvisflores BrownConsultant: Elvis Fish 12/17/2019 05:15:00 PM EDT - 12/17/2019 05:25:00 PM EDT [facility] Outpatient Attender: Elvis Brown [facility] 12/17/2019 10:30:0 0 AM EDT [facility] ([facility] Outpatient Attender: Elvis BrownReferrer: Elvis BrownConsultant: Elvis Brown 09/17/2019 04:56:00 PM EDT - 09/17/2019 05:06:00 PM EDT [facility] Outpatient Attender: Elvis Brown [facility] 09/17/2019 01:00:0 0 PM EDT [facility] ([facility] Outpatient Attender: Michelle [facility] 08/16/2019 08:00:00 AM EST [facility] ([facility] Outpatient Attender: Michelle DESIR [facility] ce 08/02/2019 12:30:00 PM EST [facility] ([facility] Outpatient Attender: Elvis BrownReferrer: Elvis BrownConsultant: Elvis Brown 06/20/2019 01:21:00 PM EST - 06/20/2019 01:31:00 PM EST [facility] Outpatient Attender: Elvis Brown [facility] 06/20/2019 07:45:0 0 AM EST [facility] [...] 03/18/2020 12:00:00 AM EDT ORAL active [facility] ([facility] cefdinir 300 MG Oral Capsule Cefdinir 04/19/2019 12:00:00 AM EST ORAL completed [facility] Clindamycin 150 MG Oral Capsule Clindamycin HCL 04/09/2019 12:00:00 A M EDT completed [facility] ([facility] Insurance Providers Payer name Policy type / Coverage type Policy ID Covered libertarian ID Covered libertarian's relationship to gregory Policy Gregory Plan Information [facility] [id number] SP [id number] UN MEDICARE COMPLETE - O/P [id number] 18 [id number] [employer] UN MEDICARE O/P [id number] 18 [id number] [facility] [id number] S [id number] [facility] [id number] SP [id number] [employer] MEDICARE-O/P [id number] 18 [id number] Problems, Conditions, and Diagnoses Code Display Name Description Problem Type Effective Dates Data Source(s) [id number] Body mass index [BMI] 33.0-33.9, adult B mary beth mass index [BMI] 33.0-33.9, adult Diagnosis 07/08/2020 05:26:00 PM [facility] E669 Obesity, unspecified Obesity, unspecified Diagnosis 07/08/2020 05:26:00 PM [facility] Z794 senior living (current) use of insulin senior living (cu rrent) use of insulin Diagnosis 07/08/2020 05:26:00 PM [facility] E785 Hyperlipidemia, unspecified Hyperlipidemia, unspecifie d Diagnosis 07/08/2020 05:26:00 PM [facility] K219 Gastro-esophageal reflux disease without esophagitis Gastro-esophageal reflux disease without esophagitis Diagnosis 07/08/2020 05:26:00 PM ES T [facility] I10 Essential (primary) hypertension Essential (primary) h ypertension Diagnosis 07/08/2020 05:26:00 PM [facility] E119 Type 2 diabetes mellitus without complic ations Type 2 diabetes mellitus without complications Diagnosis 07/08/2020 05:26:00 PM [facility] I447 Left bundle-branch block, unspecified Le ft bundle-branch block, unspecified Diagnosis 07/08/2020 05:26:00 PM [facility] U071 COVID-19 COVID-19 Diagnosis 07/08/2020 05:26:00 PM ES T [facility] Results ID Date Data Source [id number] 07/14/2020 01:13:00 AM EST [facility] Name Value Range Interpretation Code Description Data Su rce(s) Supporting Document(s) SARS coronavirus 2 RNA [Presence] in Res piratory specimen by DELISA with probe detection POSITIVE [facility] This lab was ordered by [facility] a nd reported by [facility]. ID Date Data Source [id number] 07/10/2020 06:04:00 [place] [address] RESPIRATORY CARE REPORT ==== ---------NAME------- NUMBER SEX AGE ADMIT DISC. XRAY# F/C ANGELO Jimenez [id number] F 74 07/08/20 07/09/20 [id number] PALOMO O/P DATE OF : 1945 M/R# [id number] PH#: [phone] CCU1C LOCATION: EMERGENCY DEPT EKG 11508 COMP LETE:07/09/20 01:52 VMT [id number] PHYSICIAN: JOSESITO Fitzgerald Name Value Range Interpretation Code Description Data Su rce(s) Supporting Document(s) ID Date Data Source [id number] 07/09/2020 09:48:00 [place] [address] PHONE: [phone] FAX: [phone] Name .................. : ROSALBA Jimenez Acct Number.................. : [id number] ROOM. ................. : CCU1C MR Number ................... : [id number] Stay type ............. : O/P Discharge Date......... ... : Admit Date ......... : 07/08/20 Admit Phys .................... : JOSESITO MAT Date of ....... : 1945 Family Phys ................... : KEVIN Goshi Phone .................. : [phone] Age ................................ : 74 Film# .................. .:[id number] Sex ................................. : F Unsigned transcriptions are preliminary reports and do not represent a medical or legal document CT THORAX W/O CONTRAST [id number] COMPLETE:07/08/20 20:16 3043 (REASON FOR CHEST: DYSPNEA [...] By Gerardo Coker M.D. , 07/09/20 09:48, [facility] Transcribe Initials: DZ , Transcribe Date: 07/08/20 21:34, Dictation Date: Copy for: KEVIN PUCKETT via fax Copy for: EMERGENCY DEPT via modem Copy for: [address] [place] [address] REC Page 1 of 1 Name Value Range Interpretation Code Description Data Su rce(s) Supporting Document(s) ID Date Data Source [id number] 07/09/2020 09:48:00 AM EST [facility] [address] [place] [address] PHONE: [phone] FAX: [phone] Name .................. : ROSALBA Jimenez Acct Number.................. : [id number] [facility] ................. [facility]... : [id number] Stay type ............. : O/P Discharge Date......... ... : Admit Date ......... : 07/08/20 Admit Phys .................... : JOSESITO MAT Date of ....... : 1945 Family Phys ................... : KEVIN PLEITEZ Phone ..... ............. : [phone] Age ................................ : 74 Film# .................. .:[id number] Sex ................................. : F Unsigned t ranscriptions are preliminary reports and do not represent a medical or legal document CHEST PORTABLE [id number] COMPLETE:07/08/20 18:48 JOSE 3040 Reason(s): Congestion PORTABLE CHEST X-RAY: INDICATION: Congestion. FINDINGS: The lungs are moderately expanded without focal air space disease, pleural disease or pneumothorax. The cardiac silhouette is normal in size and contour. No acute osseous abnormality. IMPRESSION: No acute pulmonary process. Electronically Reviewed and Signed By Gerardo Coker M.D. , 07/09/20 09:48, [facility] Transcribe Initials: DZ , Transcribe Date: 07/08/20 20:47, Dictation Date: Copy for: KEVIN PUCKETT via fax Copy for: EMERGENCY DEPT via modem Copy for: [address] [place] [address] REC Page 1 of 1 Name Value Range Interpretation Code Description Data Su rce(s) Supporting Document(s) ID Date Data Source [id number] 07/10/2020 06:20:00 AM [facility] Name Value Range Interpretation Code Description Data Su rce(s) Supporting Document(s) Creatine kinase.MB [Mass/volume] in Serum or Plasma 5.3 ng/mL 0.0-5. 3 [facility] ID Date Data Source [id number] 07/09/2020 08:58:00 AM [facility] Name Value Range Interpretation Code Description Data Su rce(s) Supporting Document(s) COMPREHENSIVE METABOLIC PANEL [facility] COMPREHENSIVE METABOLIC PANEL Sodium [Moles/volume] in Serum or Plasma 141 mEq/L 134 - 153 [facility] Potassium [Moles/volume] in Serum or Plasma 3.8 mEq/L 3.6 - 5.0 [facility] Chloride [Moles/volume] in Serum or Plasma 105 mEq/L 98 - 107 [facility] Carbon dioxide, total [Moles/volume] in Serum or Plasma 24 MEQ/L 22 - 30 [facility] Glucose [Mass/volume] in Serum or Plasma 87 MG/DL 70 - 99 [facility] BUN 24 MG/DL 7 - [facility] Creatinine [Mass/volume] in Serum or Plasma 1.0 MG/DL 0.7 - 1.5 [facility] BUN/CREAT 24 8 - 27 [facility] al Protein [Mass/volume] in Serum or Plasma 6.1 G/DL 6.3 - 8.2 L [facility] Albumin [Mass/volume] in Serum or Plasma 3.7 G/DL 3.9 - 5.0 L [facility] Globulin [Mass/volume] in Serum by calculation 2.4 GM/DL 2.4 - 3.2 [facility] A/G RATIO 1.5 0.8 - 2.0 [facility] Calcium [Mass/volume] in Serum or Plasma 8.5 MG/DL 8.4 - 10.2 [facility] Bilirubin.total [Mass/volume] in Serum or Plasma <0.7 MG/DL 0.2 - 1.3 [facility] Alkaline phosphatase [Enzymatic activity/volume] in Serum or Plasma 64 U/L 38 - 126 [facility] Aspartate aminotransferase [Enzymatic activity/volume] in Serum or Plasma 22 U/L 5 - 40 [facility] Alanine aminotransferase [Enzymatic activity/volume] in Seru m or Plasma 20 U/L 7 - 56 [facility] Anion gap 3 in Serum or Plasma 12.0 mmol/L 8.0 - 16.0 [facility] AGE 74 yrs [facility] NON-AA GFR 57 mL/min [facility] AFR AMER GFR >60 [facility] Male GFR In terprentation 20-49 [...] >32 mL/min Normal ID Date Data Source [id number] 07/09/2020 08:51:00 AM EST [facility] Name Value Range Interpretation Code Description Data Su rce(s) Supporting Document(s) TROPONIN T <0.01 NG/ML 0.00 - 0.10 [facility] o[facility]ital TROPONIN T0.1 ng/ml Recommended as the c linical threshold value forTroponin T. ID Date Data Source [id number] 07/09/2020 08:49:00 AM [facility] Name Value Range Interpretation Code Description Data Su rce(s) Supporting Document(s) Magnesium [Mass/volume] in Serum or Plasma 2.0 MG/DL 1.7 - 2.2 [facility] ID Date Data Source [id number] 07/09/2020 08:49:00 AM EST [facility] Name Value Range Interpretation Code Description Data Su rce(s) Supporting Document(s) Phosphate [Mass/volume] in Serum or Plasma 3.8 MG/DL 2.5 - 4.5 [facility] ID Date Data Source [id number] 07/09/2020 08:03:00 AM [facility] Name Value Range Interpretation Code Description Data Su rce(s) Supporting Document(s) CBC W/AUTOMATED DIFF [facility] COMPLETE BLOOD COUNT Leukocytes [#/volume] in Blood by Automated count 6.1 10^3/uL 4.2 - 1 1.0 [facility] Erythrocytes [#/volume] in Blood by Automated count 4.46 10^6/uL 4. 20 - 5.40 [facility] Hemoglobin [Mass/volume] in Blood 13.6 g/dL 12.0 - 16.0 [facility] Hematocrit [Volume Fraction] of Blood by Automated count 40.8 % 3 7.0 - 47.0 [facility] Erythrocyte mean corpuscular volume [Entitic volume] by Auto mated count 91.5 fL 81.0 - 101 [facility] Erythrocyte mean corpuscular hemoglobin [Entitic mass] by Automated count 30.5 pg 27.0 - 34.0 [facility] Erythrocyte mean corpuscular hemoglobin concentration [Mass/volume] by Automated count 33.3 g/dL 31.0 - 36.0 [facility] Erythrocyte distribution width [Ratio] by Automated count 13.4 % 11.5 - 14.5 [facility] Platelets [#/volume] in Blood by Automated count 167 10^3/uL 150 - 45 0 [facility] Platelet mean volume [Entitic volume] in Blood by Automated count 11.1 fL 7.4 - 10.4 H [facility] Neutrophils/100 leukocytes in Blood by Automated count 67.1 % 37. 0 - 80.0 [facility] Lymphocytes/100 leukocytes in Blood by Manual count 18.1 % 25.0 - 40.0 L [facility] Monocytes/100 leukocytes in Blood by Automated count 13.7 % 3.0 - 8.0 H [facility] Eosinophils/100 leukocytes in Blood by Automated count 0.2 % 0.0 - 7.0 [facility] Basophils/100 leukocytes in Blood by Automated count 0.7 % 0.0 - 2.5 [facility] %IG 0.2 % 0.0 - 0.0 [facility] %NRBC 0.0 % 0.0 - 0.0 [facility] al Neutrophils [#/volume] in Blood by Automated count 4.08 10^3/uL 2.00 - 6.90 [facility] Lymphocytes [#/volume] in Blood by Automated count 1.10 10^3/uL 0.60 - 3.40 [facility] Monocytes [#/volume] in Blood by Automated count 0.83 10^3/uL 0.00 - 0.90 [facility] Eosinophils [#/volume] in Blood by Automated count 0.01 10^3/uL 0.00 - 0.70 [facility] Basophils [#/volume] in Blood by Automated count 0.04 10^3/uL 0.00 - 0.20 [facility] #IG 0.01 10^3/uL 0.00 - 0.10 [facility] #NRBC 0.00 10^3/uL 0.00 - 0.00 [facility] MANUAL DIFF NOT INDICATED [facility] RBC MORPH NOT INDICATED [facility] spital ID Date Data Source [id number] 07/08/2020 05:26:00 PM EST [facility] 1 OrderSheet [facility] Emergency Department [address] [place] [address] Phone #: ext- [phone] 07/08/2020 17:26 [id number] Sex: F : 1945 Age: 74yWEIGHT:101.1 kg [...] ; Manan RNTSH STAT 17:51 07/08/2020 17:52 lAexandru Adler ; Manan RNLactic Acid STAT 17:51 [...] Alexandru Christensen ; Manan RN 2 OrderSheet [facility] Emergency Department [address] [place] [address] Phone #: ext- [phone] 07/08/2020 17:26 Patient: SID NAVARRETE Sex: F : 1945 Age: 74y(Oxygen?(No)) Reason for Study: CongestionMEDICATION/IV/DRIP/FLUID ORDERSOrder Description Priority Entered Acknowledged InitialedAcetaminophen PO 17:51 07/08/2020 18:04 Inhyu116 mg (NOW x1) Alexandru Hollingsworth ; Manan RNZithromax IVPB 500 18:58 07/08/2020 19:16 Petermg X1 Dose: 500 Alexandru Hollingsworth ; Manan RNmg with DextroseIntravenous 250 mL(NOW x1)GENERAL ORDERSOrder Description Priority Entered Acknowledged InitialedEKG 17:51 07/08/2020 17:51 Beth Alexandru Hollingsworth ; sole bufferJuan Rao [id number] - 19:05 07/08/2020 19:15 MalcolmHospitalist Alexandru Hollingsworth ; Manan RN[Electronically signed by Malcolm Hinkle RN (20:55 07/08/2020)][Electronically signed by Alexandru Hollingsworth (23:52 07/08/2020)][Electronically locked by Malcolm Hinkle RN (20:55 07/08/2020)] Name Value Range Interpretation Code Description Data Su rce(s) Supporting Document(s) ID Date Data Source [id number] 07/08/2020 05:26:00 PM EST [facility] 1 Medication Reconciliation Report [facility] Emergency Department [address] [place] [address] Phone #: ext- [phone] 07/08/2020 17:26 Patient: [...] to the patient:None. 2 Medication Reconciliation Report [facility] Emergency Department [address] [place] [address] Phone #: ext- [phone] 07/08/2020 17:26 Patient: SID NAVARRETE Sex: F : 1945 Age: 74y Name Value Range Interpretation Code Description Data Su rce(s) Supporting Document(s) ID Date Data Source [id number] 07/08/2020 05:26:00 PM EST [facility] 1 Medication Administration Record [facility] Emergency Department [address] [place] [address] Phone #: ext- [phone] 07/08/2020 17:26 Patient: [...] 250 mL bagStop Site: #1 left AC20:30 1Peter JULIANNA Hinkle Name Value Range Interpretation Code Description Data Su rce(s) Supporting Document(s) ID Date Data Source [id number] 07/08/2020 05:26:00 PM [facility] 1 General Instructions [facility] Emergency Department [address] [place] [address] Phone #: ext- [phone] 07/08/2020 17:26 Patient: SID NAVARRETE Sex: F : 1945 Age: 74yCoronavirus COVID-19 with pneumonia.Acute ischemic cardiomyopathy.(Electronically signed by Alexandru Hollingsworth 07/08/2020 23:52) Name Value Range Interpretation Code Description Data Su rce(s) Supporting Document(s) ID Date Data Source [id number] 07/08/2020 05:26:00 PM [facility] 1 Clinical Report - Nurses [facility] Emergency Department [address] [place] [address] Phone #: ext- [phone] 07/08/2020 17:26 Patient: SID NAVARRETE Sex: F : 1945 Age: 74yTRIAGEArrived by EMS. Historian: patient. Unaccompanied.Acuity: LEVEL 3.Chief Complaint: MUSCLE ACHES (cough shaky).Alert.Onset. (several days). She has had a cough. 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 SEPSIS SCREEN [...] R.N.PROBLEMS:Hypertension.Hypercholesterolemia.Diabetes Mellitus. 2 Clinical Report - Nurses [facility] Emergency Department [address] [place] [address] Phone #: ext- [phone] 07/08/2020 17:26 Patient: SID NAVARRETE Sex: F : 1945 Age: 74yArthritis.GERD. --17:32 [...] Alexandru Hollingsworth.Interventions 3 Clinical Report - Nurses [facility] Emergency Department [address] [place] [address] Phone #: ext- [phone] 07/08/2020 17:26 Patient: SID NAVARRETE Sex: F : 1945 Age: 74y Identification [...] an 20gangiocath. --17:37 07/08/20 Madai Tripp R.N. vehicle monitor technician and NIBP monitor placed on patient; monitor alarms on. Patient gowned. Reassurance given. Two patient identifiers checked. Call light placed in reach. Side rails up x 2. Bed placed in lowest position. Brakes of bed on. Patient ready for evaluation. --17:37 07/08/20 Madai Tripp R.N. EKG time: (17:31 07/08/2020). EKG was performed by a tech and shown to the ED physician. --17:42 07/08/20 [place] sole bufferJuan ER Tech1 Patient ID band checked for [...] Hinkle RN 4 Clinical Report - Nurses [facility] Emergency Department [address] [place] [address] Phone #: ext- [phone] 07/08/2020 17:26 Patient: ISD NAVARRETE Sex: F : 1945 Age: 74y [...] the room to admit pt to AIU). --19:07/08/20 Malcolm Hinkle RN 19:53 07/08/20. BP: 157/75. [...] Hinkle RN 5 Clinical Report - Nurses [facility] Emergency Department [address] [place] [address] Phone #: ext- [phone] 07/08/2020 17:26 Patient: SID NAVARERTE Sex: F : 1945 Age: 74y Name Value Range Interpretation Code Description Data Su rce(s) Supporting Document(s) ID Date Data Source [id number] 07/08/2020 05:26:00 PM [facility] 1 Clinical Report - Physicians/[facility] Emergency Department [address] [place] [address] Phone #: ext- [phone] 07/08/2020 17:26 Patient: SID NAVARRETE Sex: F [...] a day. 2 Clinical Report - Physicians/[facility] Emergency Department [address] [place] [address] Phone #: ext- [phone] 07/08/2020 17:26 [id number] Sex: F : 1945 Age: 74y Atorvastatin [...] NEGATIVE (NORMAL: NEGAT 3 Clinical Report - Physicians/[facility] Emergency Department [address] [place] [address] Phone #: ext- [phone] 07/08/2020 17:26 Patient: SID NAVARRETE Sex: F : 1945 Age: 74y INFLUENZA B NEGATIVE (NORMAL: NEGAT INFLUENZA A REENTER NEGATIVE (NORMAL: NEGAT INFLUENZA B REENTER NEGATIVE (NORMAL: NEGAT PROCEDURAL CONTROL VALID KIT LOT # _[id number] 07/08/20.DW . KIT EXP DATE _55-29-04 32/26/21.DW .The Influenza A utilizing an isothermal nucleic [...] # _[id number] 07/08/20.1825.DW . KIT EXP DATE _18-82-96 99/26/21.1826.DW . NORMAL RANGE IS NOT DETECTEDNEGATIVE RESULTS SHOULD BE TREATEDAS PRESUMPTIVE AND, IF INCONSISTENT WITHCLINICAL SIGNS AND SYMPTOMS OR NECESSARY FOR PATIENT MANAGEMENT, SHOULDBETESTED WITH DIFFERENT AUTHORIZED OR CLEARED MOLECULAR TESTS. NEGATIVE RESULTSDO NOT PRECLUDE [id number] AND SHOULD NOT BE USED THE SOLE [...] Male GFR Interprentation 20-49 yrs >60 mL/min Ixpcqq78-02 yrs >56 mL/min Normal 60-69 yrs >49 mL/min Normal 70-79yrs>42 mL/min Normal 80 and above >35 mL/min Normal Female GFRInterpretation 20-39 yrs >60 mL/min Normal 40-49 yrs >58 mL/minNormal 50-59 yrs >51 mL/min Normal 60-69 yrs >45 mL/min Wclhre10-24 yrs >39 mL/min Normal 80 and above [...] 34.0) 4 Clinical Report - Physicians/[facility] Emergency Department [address] [place] [address] Phone #: ext- [phone] 07/08/2020 17:26 Patient: [...] NOT INDICATED BNP: (JESUS: 07/08/2020 17:40) ( [facility] 07/08/2020 18:38) Final results Test Result Flag Units (Reference) BNP 120 PG/ML (0 - 125) Troponin-T: (JESUS: 07/08/2020 17:40) ( [facility] 07/08/2020 18:31) Final results Test Result Flag Units (Reference) TROPONIN T <0.01 NG/ML (0.00 - 0.10) TROPONIN T0.1 ng/ml Recommended as the clinical threshold value forTroponin T. TSH: (JESUS: 07/08/2020 17:40) ( [facility] 07/08/2020 18:38) Final results Test Result Flag Units (Reference) TSH 0.77 uIU/mL (0.47 - 5.01) Lactic Acid: (JESUS: 07/08/2020 17:40) ( [facility] 07/08/2020 18:05) Final results Test Result Flag Units (Reference) LACTIC ACID 1.7 MMOL/L (0.2 - 2.2) Chest Portable 1 View: (JESUS: 07/08/2020 17:51) ( [facility] 07/08/2020 18:49) In Progress CHEST PORTABLE Reason(s): [...] ordered. 5 Clinical Report - Physicians/Mid Levels [facility] Emergency Department [address] [place] [address] Phone #: ext- [phone] 07/08/2020 17:26 Patient: [...] rce(s) Supporting Document(s) ID Date Data Source [id number] 07/08/2020 05:26:00 PM [facility] Addenda for SID NAVARRETE VisitID: [id number] Date: 19:45Medication reconciliation request faxed to [employer]; [facility](Electronically signed by Jesse Hinkle - 07/08/2020 19:45) Name Value Range Interpretation Code Description Data Su rce(s) Supporting Document(s) ID Date Data Source [id number] 07/10/2020 06:21:00 AM [facility] Name Value Range Interpretation Code Description Data Su rce(s) Supporting Document(s) Creatine kinase.MB [Mass/volume] in Serum or Plasma 4.8 ng/mL 0.0-5. 3 [facility] ID Date Data Source [id number] 07/09/2020 12:10:00 AM [facility] Name Value Range Interpretation Code Description Data Su rce(s) Supporting Document(s) TROPONIN T <0.01 NG/ML 0.00 - 0.10 [facility] TROPONIN T0.1 ng/ml Recommended as the c linical threshold value forTroponin T. ID Date Data Source [id number] 07/08/2020 07:51:00 PM EST [facility] Name Value Range Interpretation Code Description Data Su rce(s) Supporting Document(s) Influenza virus A Ag [Presence] in Nasopharynx by Immunoassa y NEGATIVE NORMAL: NEGATIVE [facility] Influenza virus B Ag [Presence] in Nasopharynx by Immunoassa y NEGATIVE NORMAL: NEGATIVE [facility] NEGATIVENEGATIVE PROCEDURAL CO NTROL VALID KIT LOT # _[id number] 07/08/20.DW . KIT EXP DATE _71-29-80 07/08/20.DW .The Influenza A & B assay is a rapid molecular in vitro diagnostic testutilizing an isothermal nucleic acid amplification technology for thequalitative detection of influenza A and B viral RNA.Negative results do not preclude influenza virus infection and should not beused as the sole basis for diagnosis, treatment or other patient managementdecisions. ID Date Data Source [id number] 07/08/2020 05:48:00 PM EST [facility] Name Value Range Interpretation Code Description Data Su rce(s) Supporting Document(s) [facility] and reported by [facility]. ID Date Data Source [id number] 07/08/2020 06:26:00 PM EST [facility] DETECTEDDETECTED{ PROCEDURAL C ONTROL VALID KIT LOT # _[id number] 07/08/20.DW . KIT EXP DATE _27-26-37 07/08/20.DW . NORMAL RANGE IS NOT DETECTEDNEGATIVE [...] rce(s) Supporting Document(s) ID Date Data Source [id number] 07/10/2020 07:56:00 AM [facility] Name Value Range Interpretation Code Description Data Su rce(s) Supporting Document(s) C reactive protein [Mass/volume] in Serum or Plasma by High sensitivity method 46.25 MG/L 1.00 - 3.00 [facility] HS-CRP CUT-OFF: RELATIVE RISK: <1.0 mg/L Low 1.0 - 3.0 mg/L Average >3.0 mg/L High Optimally, the average of HS-CRP results repeated two weeks apart should be used for risk assessment. ID Date Data Source [id number] 07/10/2020 06:20:00 AM [facility] Name Value Range Interpretation Code Description Data Su rce(s) Supporting Document(s) Creatine kinase.MB [Mass/volume] in Serum or Plasma 3.7 ng/mL 0.0-5. 3 [facility] ID Date Data Source [id number] 07/08/2020 06:38:00 PM [facility] Name Value Range Interpretation Code Description Data Su rce(s) Supporting Document(s) Thyrotropin [Units/volume] in Serum or Plasma by Detec tion limit <= 0.05 mIU/L 0.77 uIU/mL 0.47 - 5.01 [facility] ID Date Data Source [id number] 07/08/2020 06:38:00 PM [facility] Name Value Range Interpretation Code Description Data Su rce(s) Supporting Document(s) BNP 120 PG/ML 0 - 125 [facility] ID Date Data Source [id number] 07/08/2020 06:31:00 PM [facility] Name Value Range Interpretation Code Description Data Su rce(s) Supporting Document(s) TROPONIN T <0.01 NG/ML 0.00 - 0.10 [facility] TROPONIN T0.1 ng/ml Recommended as the c linical threshold value forTroponin T. ID Date Data Source [id number] 07/08/2020 06:23:00 PM EST [facility] Name Value Range Interpretation Code Description Data Su rce(s) Supporting Document(s) BASIC METABOLIC PANEL [facility] BASIC METABOLIC PANEL Sodium [Moles/volume] in Serum or Plasma 135 mEq/L 134 - 153 [facility] Potassium [Moles/volume] in Serum or Plasma 3.9 mEq/L 3.6 - 5.0 [facility] Chloride [Moles/volume] in Serum or Plasma 101 mEq/L 98 - 107 [facility] Carbon dioxide, total [Moles/volume] in Serum or Plasma 21 MEQ/L 22 - 30 L [facility] Glucose [Mass/volume] in Serum or Plasma 261 MG/DL 70 - 99 H [facility] BUN 23 MG/DL 7 - 21 [facility] Creatinine [Mass/volume] in Serum or Plasma 1.0 MG/DL 0.7 - 1.5 [facility] BUN/CREAT 23 8 - 27 [facility] al Calcium [Mass/volume] in Serum or Plasma 8.3 MG/DL 8.4 - 10.2 L [facility] Anion gap 3 in Serum or Plasma 13.0 mmol/L 8.0 - 16.0 [facility]GE 74 [facility] AMER GFR >60 [facility] NON-AA GFR 57 mL/min [facility] GFR Inter prentation 20-49 yrs [...] >32 mL/min Normal ID Date Data Source [id number] 07/08/2020 06:06:00 PM EST [facility] Name Value Range Interpretation Code Description Data Su rce(s) Supporting Document(s) CBC W/AUTOMATED DIFF [facility] COMPLETE BLOOD COUNT Leukocytes [#/volume] in Blood by Automated count 9.9 10^3/uL 4.2 - 1 1.0 [facility] Erythrocytes [#/volume] in Blood by Automated count 4.61 10^6/uL 4. 20 - 5.40 [facility] Hemoglobin [Mass/volume] in Blood 14.0 g/dL 12.0 - 16.0 [facility] Hematocrit [Volume Fraction] of Blood by Automated count 42.0 % 3 7.0 - 47.0 [facility] Erythrocyte mean corpuscular volume [Entitic volume] by Auto mated count 91.1 fL 81.0 - 101 [facility] Erythrocyte mean corpuscular hemoglobin [Entitic mass] by Automated count 30.4 pg 27.0 - 34.0 [facility] Erythrocyte mean corpuscular hemoglobin concentration [Mass/volume] by Automated count 33.3 g/dL 31.0 - 36.0 [facility] Erythrocyte distribution width [Ratio] by Automated count 13.4 % 11.5 - 14.5 [facility] Platelets [#/volume] in Blood by Automated count 163 10^3/uL 150 - 45 0 [facility] Platelet mean volume [Entitic volume] in Blood by Automated count 11.0 fL 7.4 - 10.4 H [facility] Neutrophils/100 leukocytes in Blood by Automated count 81.8 % 37. 0 - 80.0 H [facility] Lymphocytes/100 leukocytes in Blood by Manual count 7.7 % 25.0 - 40.0 L [facility] Monocytes/100 leukocytes in Blood by Automated count 9.5 % 3.0 - 8.0 H [facility] Eosinophils/100 leukocytes in Blood by Automated count 0.3 % 0.0 - 7.0 [facility] Basophils/100 leukocytes in Blood by Automated count 0.4 % 0.0 - 2.5 [facility] %IG 0.3 % 0.0 - 0.0 [facility] %NRBC 0.0 % 0.0 - 0.0 [facility] al Neutrophils [#/volume] in Blood by Automated count 8.10 10^3/uL 2.00 - 6.90 H [facility] Lymphocytes [#/volume] in Blood by Automated count 0.76 10^3/uL 0.60 - 3.40 [facility] Monocytes [#/volume] in Blood by Automated count 0.94 10^3/uL 0.00 - 0.90 H [facility] Eosinophils [#/volume] in Blood by Automated count 0.03 10^3/uL 0.00 - 0.70 [facility] Basophils [#/volume] in Blood by Automated count 0.04 10^3/uL 0.00 - 0.20 [facility] #IG 0.03 10^3/uL 0.00 - 0.10 [facility] #NRBC 0.00 10^3/uL 0.00 - 0.00 [facility] MANUAL DIFF NOT INDICATED [facility] RBC MORPH NOT INDICATED [facility] spital ID Date Data Source [id number] 07/08/2020 06:05:00 PM EST [facility] Name Value Range Interpretation Code Description Data Su rce(s) Supporting Document(s) Lactate [Moles/volume] in Serum or Plasma 1.7 MMOL/L 0.2 - 2.2 [facility] ID Date Data Source [id number] 06/18/2020 09:45:00 AM EST [facility] ([facility] Name Value Range Interpretation Code Description Data Su rce(s) Supporting Document(s) Alb 10 mg/L 1-30 [facility] A/C Ratio Laboratory test result [facility] ([facility] Creatinine, Urine 50 mg/dL 10-300 [facility] ID Date Data Source [id number] 06/18/2020 09:44:00 AM EST [facility] ([facility] Name Value Range Interpretation Code Description Data Su rce(s) Supporting Document(s) Color Laboratory test result [facility] ([facility] NORMAL RANGES Age [...] HCT IS 5% LESS SOURCE FOR DATA: [employer] 1800 OPERATION MANUAL( AUTOMATED BLOOD COUNTS AND [...] Abnormal (applies to non -numeric results) [facility] ([facility] NORMAL RANGES Age [...] 2-19 YEARS EXCLUSIVE. Bilirubin,Urine Laboratory test result [facility] ([facility] NORMAL RANGES Age [...] HCT IS 5% LESS SOURCE FOR DATA: [employer] 1800 OPERATION MANUAL( AUTOMATED BLOOD COUNTS AND [...] 2-19 YEARS EXCLUSIVE. Clarity Laboratory test result [facility] ([facility] [...] HCT IS 5% LESS SOURCE FOR DATA: [employer] 1800 OPERATION MANUAL( AUTOMATED BLOOD COUNTS AND [...] 2-19 YEARS EXCLUSIVE. Ketone Laboratory test result [facility] ([facility] NORMAL RANGES Age [...] HCT IS 5% LESS SOURCE FOR DATA: [employer] 1800 OPERATION MANUAL( AUTOMATED BLOOD COUNTS AND [...] 2-19 YEARS EXCLUSIVE. pH 5.5 # 5.0-8.0 [facility] ([facility] [...] HCT IS 5% LESS SOURCE FOR DATA: [employer] 1800 OPERATION MANUAL( AUTOMATED BLOOD COUNTS AND [...] HCT IS 5% LESS SOURCE FOR DATA: [employer] 1800 OPERATION MANUAL( AUTOMATED BLOOD COUNTS AND [...] YEARS EXCLUSIVE. Urobilinogen 0.2 NA 0.2-1.0 [facility] ([facility] NORMAL RANGES Age [...] HCT IS 5% LESS SOURCE FOR DATA: [employer] DYN 1800 OPERATION MANUAL( AUTOMATED BLOOD COUNTS [...] 2-19 YEARS EXCLUSIVE. Protein Laboratory [facility] ([facility] NORMAL [...] HCT IS 5% LESS SOURCE FOR DATA: [employer] 1800 OPERATION MANUAL( AUTOMATED BLOOD COUNTS AND [...] 2-19 YEARS EXCLUSIVE. Nitrite Laboratory test result [facility] ([facility] [...] HCT IS 5% LESS SOURCE FOR DATA: [employer] 1800 OPERATION MANUAL( AUTOMATED BLOOD COUNTS AND [...] 2-19 YEARS EXCLUSIVE. Leukocyte Laboratory test result [facility] ([facility] NORMAL RANGES [...] HCT IS 5% LESS SOURCE FOR DATA: [employer]YN 1800 OPERATION MANUAL( AUTOMATED BLOOD COUNTS [...] 2-19 YEARS EXCLUSIVE. ID Date Data Source [id number] 06/18/2020 09:44:00 AM EST [facility] ([facility] Name Value Range Interpretation [...] HCT IS 5% LESS SOURCE FOR DATA: [employer] 1800 OPERATION MANUAL( AUTOMATED BLOOD COUNTS AND [...] 2-19 YEARS EXCLUSIVE. Chol 146 mg/dL 0-200 [facility] ([facility] NORMAL RANGES Age WBC [...] HCT IS 5% LESS SOURCE FOR DATA: [employer] 1800 OPERATION MANUAL( AUTOMATED BLOOD COUNTS AND [...] 2-19 YEARS EXCLUSIVE. Cho/HDL Ratio 3.5 CALC [employer] ([facility] NORMAL RANGES Age WBC RBC HGB [...] HCT IS 5% LESS SOURCE FOR DATA: [employer] 1800 OPERATION MANUAL( AUTOMATED BLOOD COUNTS AND [...] HCT IS 5% LESS SOURCE FOR DATA: [employer] 1800 OPERATION MANUAL( AUTOMATED BLOOD COUNTS AND [...] Plasma 41 mg/dL 45-65 Below low normal [facility] ([facility] NORMAL RANGES [...] HCT IS 5% LESS SOURCE FOR DATA: [employer] 1800 OPERATION MANUAL( AUTOMATED BLOOD COUNTS AND [...] 2-19 YEARS EXCLUSIVE. ID Date Data Source [id number] 06/18/2020 09:44:00 AM EST [facility] ([facility] Name Value Range Interpretation Code Description Data Su rce(s) Supporting Document(s) Creatine kinase [Enzymatic activity/volume] in Serum or Plasma 121 U/L 26-192 [facility] ([facility] NORMAL RANGES Age [...] HCT IS 5% LESS SOURCE FOR DATA: [employer] 1800 OPERATION MANUAL( AUTOMATED BLOOD COUNTS AND [...] 2-19 YEARS EXCLUSIVE. ID Date Data Source [id number] 06/18/2020 09:44:00 AM EST [facility] ([facility] Name Value Range Interpretation Code Description Data Su rce(s) Supporting Document(s) BUN 26 mg/dL 8-23 Above high normal [facility] ([facility] NORMAL RANGES Age WBC [...] HCT IS 5% LESS SOURCE FOR DATA: [employer] 1800 OPERATION MANUAL( AUTOMATED BLOOD COUNTS AND [...] HCT IS 5% LESS SOURCE FOR DATA: [employer] DYN 1800 OPERATION MANUAL( AUTOMATED BLOOD COUNTS [...] HCT IS 5% LESS SOURCE FOR DATA: [employer] 1800 OPERATION MANUAL( AUTOMATED BLOOD COUNTS AND [...] 2-19 YEARS EXCLUSIVE. BUN/Creatinine Ratio 22.5 CALC [facility] ([facility] NORMAL RANGES Age WBC [...] HCT IS 5% LESS SOURCE FOR DATA: [employer] 1800 OPERATION MANUAL( AUTOMATED BLOOD COUNTS AND [...] 2-19 YEARS EXCLUSIVE. K 4.3 mmol/L 3.5-5.1 [facility] ([facility] NORMAL RANGES Age [...] HCT IS 5% LESS SOURCE FOR DATA: [employer] 1800 OPERATION MANUAL( AUTOMATED BLOOD COUNTS AND [...] 2-19 YEARS EXCLUSIVE. Na 140 mmol/L 136-145 [facility] ([facility] NORMAL [...] HCT IS 5% LESS SOURCE FOR DATA: [employer] 1800 OPERATION MANUAL( AUTOMATED BLOOD COUNTS AND [...] 2-19 YEARS EXCLUSIVE. Co2 24.6 mmol/L 22.0-29.0 [facility] ([facility] NORMAL RANGES Age WBC RBC HGB [...] HCT IS 5% LESS SOURCE FOR DATA: [employer] 1800 OPERATION MANUAL( AUTOMATED BLOOD COUNTS AND [...] 2-19 YEARS EXCLUSIVE. CA 8.6 mg/dL 8.6-10.2 [facility] ([facility] [...] HCT IS 5% LESS SOURCE FOR DATA: [employer] 1800 OPERATION MANUAL( AUTOMATED BLOOD COUNTS AND [...] CL 107.5 mmol/L 98.0-107.0 Above high normal [facility] ([facility] NORMAL RANGES Age [...] HCT IS 5% LESS SOURCE FOR DATA: [employer] 1800 OPERATION MANUAL( AUTOMATED BLOOD COUNTS AND [...] HCT IS 5% LESS SOURCE FOR DATA: [employer] 1800 OPERATION MANUAL( AUTOMATED BLOOD COUNTS AND [...] 2-19 YEARS EXCLUSIVE. Alb 3.9 g/dL 3.4-4.8 [facility] ([facility] [...] HCT IS 5% LESS SOURCE FOR DATA: [employer] 1800 OPERATION MANUAL( AUTOMATED BLOOD COUNTS AND [...] TP 6.2 g/dL 6.6-8.7 Below low normal [facility] ( [...] HCT IS 5% LESS SOURCE FOR DATA: [employer] 1800 OPERATION MANUAL( AUTOMATED BLOOD COUNTS AND [...] YEARS EXCLUSIVE. Alt (SGPT) 16 U/L 0-41 [facility] NORMAL RANGES Age WBC RBC [...] 2-19 YEARS EXCLUSIVE. Alp 68.2 U/L 35-129 [facility] ([facility] [...] HCT IS 5% LESS SOURCE FOR DATA: [employer] 1800 OPERATION MANUAL( AUTOMATED BLOOD COUNTS AND [...] 2-19 YEARS EXCLUSIVE. Globulin 2.4 CALC [facility] ([facility] [...] HCT IS 5% LESS SOURCE FOR DATA: [employer] 1800 OPERATION MANUAL( AUTOMATED BLOOD COUNTS AND [...] 2-19 YEARS EXCLUSIVE. Tbili 0.39 mg/dL 0.0-1.2 [facility] ([facility] NORMAL RANGES Age WBC RBC [...] HCT IS 5% LESS SOURCE FOR DATA: [employer]YN 1800 OPERATION MANUAL( AUTOMATED BLOOD COUNTS [...] HCT IS 5% LESS SOURCE FOR DATA: [employer] 1800 OPERATION MANUAL( AUTOMATED BLOOD COUNTS AND [...] YEARS EXCLUSIVE. Ast (Sgot) 16 U/L 0-40 [facility] ([facility] [...] HCT IS 5% LESS SOURCE FOR DATA: [employer] 1800 OPERATION MANUAL( AUTOMATED BLOOD COUNTS AND [...] 2-19 YEARS EXCLUSIVE. Anion Gap 12 mmol/L [facility] ([facility] [...] HCT IS 5% LESS SOURCE FOR DATA: [employer] 1800 OPERATION MANUAL( AUTOMATED BLOOD COUNTS AND [...] INDIVIDUALA AGED 2-19 YEARS EXCLUSIVE. eGFR Non-Afr. Eritrean 44 # [facility] ([facility] [...] HCT IS 5% LESS SOURCE FOR DATA: [employer] 1800 OPERATION MANUAL( AUTOMATED BLOOD COUNTS AND [...] 2-19 YEARS EXCLUSIVE. ID Date Data Source [id number] 06/18/2020 09:44:00 AM EST [facility] ([facility] Name Value Range Interpretation Code Description Data Su rce(s) Supporting Document(s) WBC 7.6 10E3/uL 4.1-10.9 [facility] ([facility] NORMAL RANGES Age WBC [...] HCT IS 5% LESS SOURCE FOR DATA: [employer] 1800 OPERATION MANUAL( AUTOMATED BLOOD COUNTS AND [...] 2-19 YEARS EXCLUSIVE. HGB 14.0 g/dL 12.0-18.0 [facility] ([facility] [...] HCT IS 5% LESS SOURCE FOR DATA: [employer] 1800 OPERATION MANUAL( AUTOMATED BLOOD COUNTS AND [...] 2-19 YEARS EXCLUSIVE. HCT 42.7 % 37.0-51.0 [facility] NORMAL RANGES Age WBC [...] HCT IS 5% LESS SOURCE FOR DATA: [employer] 1800 OPERATION MANUAL( AUTOMATED BLOOD COUNTS AND [...] 2-19 YEARS EXCLUSIVE. RBC 4.60 10E6/uL 4.20-6.30 [facility] ([facility] NORMAL RANGES [...] HCT IS 5% LESS SOURCE FOR DATA: [employer]YN 1800 OPERATION MANUAL( AUTOMATED BLOOD COUNTS [...] 2-19 YEARS EXCLUSIVE. MCH 30.4 pg 26.0-32.0 [facility] ([facility] NORMAL [...] HCT IS 5% LESS SOURCE FOR DATA: [employer] 1800 OPERATION MANUAL( AUTOMATED BLOOD COUNTS AND [...] 2-19 YEARS EXCLUSIVE. MCHC 32.8 g/dL 31.0-36.0 [facility] ([facility] NORMAL RANGES Age WBC [...] HCT IS 5% LESS SOURCE FOR DATA: [employer] 1800 OPERATION MANUAL( AUTOMATED BLOOD COUNTS AND [...] 2-19 YEARS EXCLUSIVE. MCV 92.8 fL 80.0-97.0 [facility] ([facility] NORMAL RANGES [...] HCT IS 5% LESS SOURCE FOR DATA: [employer] 1800 OPERATION MANUAL( AUTOMATED BLOOD COUNTS AND [...] 2-19 YEARS EXCLUSIVE. Lym% 22.8 % 10.0-58.5 [facility] ([facility], [...] HCT IS 5% LESS SOURCE FOR DATA: [employer] 1800 OPERATION MANUAL( AUTOMATED BLOOD COUNTS AND [...] 2-19 YEARS EXCLUSIVE. RDW-CV 13.4 % 11.5-14.5 [facility] ([facility] [...] 2-19 YEARS EXCLUSIVE. PLT 198 10E3/uL 140-440 [facility] ([facility] NORMAL RANGES Age WBC [...] HCT IS 5% LESS SOURCE FOR DATA: [employer] 1800 OPERATION MANUAL( AUTOMATED BLOOD COUNTS AND [...] 2-19 YEARS EXCLUSIVE. Lym# 1.7 10E3/uL 0.6-4.1 [facility] ([facility] NORMAL RANGES Age WBC [...] HCT IS 5% LESS SOURCE FOR DATA: [employer] 1800 OPERATION MANUAL( AUTOMATED BLOOD COUNTS AND [...] 2-19 YEARS EXCLUSIVE. MXD% 10.3 % 0.1-24.0 [facility] ([facility] [...] HCT IS 5% LESS SOURCE FOR DATA: [employer] 1800 OPERATION MANUAL( AUTOMATED BLOOD COUNTS AND [...] HCT IS 5% LESS SOURCE FOR DATA: [employer] 1800 OPERATION MANUAL( AUTOMATED BLOOD COUNTS AND [...] 2-19 YEARS EXCLUSIVE. MXD# 0.8 10E3/uL 0.0-1.8 [facility] ([facility] NORMAL RANGES Age WBC [...] HCT IS 5% LESS SOURCE FOR DATA: [employer] 1800 OPERATION MANUAL( AUTOMATED BLOOD COUNTS AND [...] 2-19 YEARS EXCLUSIVE. Neut# 5.1 % 2.0-7.8 [facility] ([facility] NORMAL RANGES [...] HCT IS 5% LESS SOURCE FOR DATA: [employer] 1800 OPERATION MANUAL( AUTOMATED BLOOD COUNTS AND [...] 2-19 YEARS EXCLUSIVE. MPV 11.2 fL 9.0-13.0 [facility] ([facility] [...] HCT IS 5% LESS SOURCE FOR DATA: [employer] 1800 OPERATION MANUAL( AUTOMATED BLOOD COUNTS [...] 2-19 YEARS EXCLUSIVE. ID Date Data Source [id number] 06/18/2020 09:44:00 AM EST [facility] ([facility] Name Value Range Interpretation Code Description Data Su rce(s) Supporting Document(s) Hemoglobin A1c/Hemoglobin.total in Blood 8.8 % 4.4-6.1 Above high normal [facility] ([facility] {A1] {HB] ID Date Data Source [id number] 06/18/2020 02:23:00 PM [facility] Name Value Range Interpretation Code Description Data Su rce(s) Supporting Document(s) Hemoglobin A1c/Hemoglobin.total in Blood 8.8 % 4.4 - 6.1 [facility] {A1]{HB] ID Date Data Source [id number] 03/11/2020 08:50:00 AM EDT [facility] ([facility] Name Value Range Interpretation Code Description Data Su rce(s) Supporting Document(s) Hemoglobin A1c/Hemoglobin.total in Blood 8.7 % 4.4-6.1 Above high normal [facility] ([facility] {A1] {HB] ID Date Data Source [id number] 03/11/2020 08:50:00 AM EDT [facility] ([facility] Name Value Range Interpretation Code Description Data Su rce(s) Supporting Document(s) Color Laboratory test result [facility] ([facility] NORMAL RANGES Age [...] HCT IS 5% LESS SOURCE FOR DATA: [employer] 1800 OPERATION MANUAL( AUTOMATED BLOOD COUNTS AND [...] 2-19 YEARS EXCLUSIVE. Clarity Laboratory test result [facility] ([facility] NORMAL RANGES Age WBC RBC [...] HCT IS 5% LESS SOURCE FOR DATA: [employer] 1800 OPERATION MANUAL( AUTOMATED BLOOD COUNTS AND [...] HCT IS 5% LESS SOURCE FOR DATA: [employer] 1800 OPERATION MANUAL( AUTOMATED BLOOD COUNTS AND [...] 2-19 YEARS EXCLUSIVE. Bilirubin,Urine Laboratory test result [facility] ([facility] NORMAL [...] HCT IS 5% LESS SOURCE FOR DATA: [employer] 1800 OPERATION MANUAL( AUTOMATED BLOOD COUNTS AND [...] 2-19 YEARS EXCLUSIVE. Ketone Laboratory test result [facility] ([facility] NORMAL RANGES Age WBC RBC [...] HCT IS 5% LESS SOURCE FOR DATA: [employer] 1800 OPERATION MANUAL( AUTOMATED BLOOD COUNTS AND [...] result Abnormal (applies to non -numeric results) [facility] ([facility] NORMAL RANGES [...] HCT IS 5% LESS SOURCE FOR DATA: [employer] 1800 OPERATION MANUAL( AUTOMATED BLOOD COUNTS AND [...] 2-19 YEARS EXCLUSIVE. pH 5.5 # 5.0-8.0 [facility] ([facility] [...] HCT IS 5% LESS SOURCE FOR DATA: [employer] 1800 OPERATION MANUAL( AUTOMATED BLOOD COUNTS AND [...] 2-19 YEARS EXCLUSIVE. Protein Laboratory test result [facility] ([facility] NORMAL RANGES Age [...] HCT IS 5% LESS SOURCE FOR DATA: [employer] 1800 OPERATION MANUAL( AUTOMATED BLOOD COUNTS AND [...] 2-19 YEARS EXCLUSIVE. Nitrite Laboratory test result [facility] ([facility] NORMAL [...] HCT IS 5% LESS SOURCE FOR DATA: [employer] 1800 OPERATION MANUAL( AUTOMATED BLOOD COUNTS [...] EXCLUSIVE. Urobilinogen 0.2 NA 0.2-1.0 [facility] ([facility] NORMAL RANGES Age WBC [...] HCT IS 5% LESS SOURCE FOR DATA: [employer] 1800 OPERATION MANUAL( AUTOMATED BLOOD COUNTS AND [...] 0-3 Abnormal (applies to non -numeric results) [facility] ([facility] NORMAL RANGES Age [...] HCT IS 5% LESS SOURCE FOR DATA: [employer] 1800 OPERATION MANUAL( AUTOMATED BLOOD COUNTS AND [...] result Abnormal (applies to non -numeric results) [facility] ([facility] NORMAL [...] HCT IS 5% LESS SOURCE FOR DATA: [employer] 1800 OPERATION MANUAL( AUTOMATED BLOOD COUNTS [...] test result Abnormal (applies to non-numeric results) [facility] ([facility] [...] HCT IS 5% LESS SOURCE FOR DATA: [employer] 1800 OPERATION MANUAL( AUTOMATED BLOOD COUNTS AND [...] Epithelial Cells - Ua Laboratory test result [facility] ([facility] NORMAL RANGES Age [...] HCT IS 5% LESS SOURCE FOR DATA: [employer] 1800 OPERATION MANUAL( AUTOMATED BLOOD COUNTS AND [...] 2-19 YEARS EXCLUSIVE. Comment Laboratory test result [facility] ([facility] NORMAL RANGES Age [...] HCT IS 5% LESS SOURCE FOR DATA: [employer] 1800 OPERATION MANUAL( AUTOMATED BLOOD COUNTS AND [...] 0-5 Abnormal (applies to non -numeric results) [facility] [...] HCT IS 5% LESS SOURCE FOR DATA: [employer] 1800 OPERATION MANUAL( AUTOMATED BLOOD COUNTS AND [...] Ab normal (applies to non-numeric results) [facility] ([facility] ) NORMAL RANGES [...] HCT IS 5% LESS SOURCE FOR DATA: [employer] 1800 OPERATION MANUAL( AUTOMATED BLOOD COUNTS AND [...] 2-19 YEARS EXCLUSIVE. ID Date Data Source [id number] 03/11/2020 08:50:00 AM EDT [facility] ([facility] Name Value Range Interpretation [...] HCT IS 5% LESS SOURCE FOR DATA: [employer] 1800 OPERATION MANUAL( AUTOMATED BLOOD COUNTS AND [...] 2-19 YEARS EXCLUSIVE. Trig 115 mg/dL 40-200 [facility] ([facility] [...] HCT IS 5% LESS SOURCE FOR DATA: [employer] 1800 OPERATION MANUAL( AUTOMATED BLOOD COUNTS AND [...] in Serum or Plasma 48 mg/dL 45-65 [facility] ([facility] NORMAL [...] HCT IS 5% LESS SOURCE FOR DATA: [employer] 1800 OPERATION MANUAL( AUTOMATED BLOOD COUNTS [...] 2-19 YEARS EXCLUSIVE. Cho/HDL Ratio 3.5 CALC [facility] ([facility] NORMAL RANGES Age WBC [...] HCT IS 5% LESS SOURCE FOR DATA: [employer] 1800 OPERATION MANUAL( AUTOMATED BLOOD COUNTS AND [...] 2-19 YEARS EXCLUSIVE. LDL_C 94 Calc 75-129 [facility] ([facility] NORMAL RANGES Age WBC [...] HCT IS 5% LESS SOURCE FOR DATA: [employer] 1800 OPERATION MANUAL( AUTOMATED BLOOD COUNTS AND [...] 2-19 YEARS EXCLUSIVE. ID Date Data Source [id number] 03/11/2020 08:50:00 AM EDT [facility] ([facility] Name Value Range Interpretation Code Description Data Su rce(s) Supporting Document(s) Creatine kinase [Enzymatic activity/volume] in Serum or Plasma 147 U/L 26-192 [facility] ([facility] NORMAL RANGES Age WBC [...] HCT IS 5% LESS SOURCE FOR DATA: [employer] 1800 OPERATION MANUAL( AUTOMATED BLOOD COUNTS AND [...] 2-19 YEARS EXCLUSIVE. ID Date Data Source [id number] 03/11/2020 08:50:00 AM EDT [facility] ([facility] Name Value Range Interpretation Code Description Data Su rce(s) Supporting Document(s) Glu 188 mg/dL 70-110 Above high normal [facility] ([facility] NORMAL RANGES Age [...] HCT IS 5% LESS SOURCE FOR DATA: [employer] 1800 OPERATION MANUAL( AUTOMATED BLOOD COUNTS AND [...] 2-19 YEARS EXCLUSIVE. BUN 18 mg/dL 8-23 [facility] ([facility] [...] HCT IS 5% LESS SOURCE FOR DATA: [employer] 1800 OPERATION MANUAL( AUTOMATED BLOOD COUNTS AND [...] YEARS EXCLUSIVE. BUN/Creatinine Ratio 20.5 CALC [facility] ([facility] NORMAL RANGES Age [...] HCT IS 5% LESS SOURCE FOR DATA: [employer] 1800 OPERATION MANUAL( AUTOMATED BLOOD COUNTS AND [...] 2-19 YEARS EXCLUSIVE. Creat 0.9 mg/dL 0.5-1.0 [facility] ([facility] NORMAL [...] HCT IS 5% LESS SOURCE FOR DATA: [employer] 1800 OPERATION MANUAL( AUTOMATED BLOOD COUNTS AND [...] 2-19 YEARS EXCLUSIVE. Na 139 mmol/L 136-145 [facility] ([facility] NORMAL RANGES Age WBC RBC [...] HCT IS 5% LESS SOURCE FOR DATA: [employer] 1800 OPERATION MANUAL( AUTOMATED BLOOD COUNTS [...] 2-19 YEARS EXCLUSIVE. K 4.8 mmol/L 3.5-5.1 [facility] ([facility] NORMAL RANGES Age WBC RBC [...] HCT IS 5% LESS SOURCE FOR DATA: [employer] 1800 OPERATION MANUAL( AUTOMATED BLOOD COUNTS AND [...] 2-19 YEARS EXCLUSIVE. Co2 27.5 mmol/L 22.0-29.0 [facility] ([facility] NORMAL RANGES Age WBC RBC HGB [...] HCT IS 5% LESS SOURCE FOR DATA: [employer] 1800 OPERATION MANUAL( AUTOMATED BLOOD COUNTS AND [...] 2-19 YEARS EXCLUSIVE. CL 103.6 mmol/L 98.0-107.0 [facility] ([facility] NORMAL RANGES Age WBC RBC HGB [...] HCT IS 5% LESS SOURCE FOR DATA: [employer] 1800 OPERATION MANUAL( AUTOMATED BLOOD COUNTS [...] HCT IS 5% LESS SOURCE FOR DATA: [employer] 1800 OPERATION MANUAL( AUTOMATED BLOOD COUNTS AND [...] TP 6.5 g/dL 6.6-8.7 Below low normal [facility] ( [facility] NORMAL RANGES Age [...] HCT IS 5% LESS SOURCE FOR DATA: [employer] 1800 OPERATION MANUAL( AUTOMATED BLOOD COUNTS AND [...] 2-19 YEARS EXCLUSIVE. A/G Ratio 1.6 CALC [facility] ([facility] [...] HCT IS 5% LESS SOURCE FOR DATA: [employer] 1800 OPERATION MANUAL( AUTOMATED BLOOD COUNTS AND [...] 2-19 YEARS EXCLUSIVE. Alb 4.0 g/dL 3.4-4.8 [facility] ([facility], [...] HCT IS 5% LESS SOURCE FOR DATA: [employer] 1800 OPERATION MANUAL( AUTOMATED BLOOD COUNTS AND [...] 2-19 YEARS EXCLUSIVE. Alp 72.6 U/L 35-129 [facility] NORMAL RANGES Age [...] HCT IS 5% LESS SOURCE FOR DATA: [employer] 1800 OPERATION MANUAL( AUTOMATED BLOOD COUNTS AND [...] HCT IS 5% LESS SOURCE FOR DATA: [employer] 1800 OPERATION MANUAL( AUTOMATED BLOOD COUNTS AND [...] YEARS EXCLUSIVE. Alt (SGPT) 18 U/L 0-41 [facility] ([facility] NORMAL [...] HCT IS 5% LESS SOURCE FOR DATA: [employer] 1800 OPERATION MANUAL( AUTOMATED BLOOD COUNTS AND [...] YEARS EXCLUSIVE. Ast (Sgot) 19 U/L 0-40 [facility] ([facility] NORMAL RANGES [...] HCT IS 5% LESS SOURCE FOR DATA: [employer] 1800 OPERATION MANUAL( AUTOMATED BLOOD COUNTS AND [...] 2-19 YEARS EXCLUSIVE. Tbili 0.56 mg/dL 0.0-1.2 [facility] ([facility] [...] HCT IS 5% LESS SOURCE FOR DATA: [employer] 1800 OPERATION MANUAL( AUTOMATED BLOOD COUNTS AND [...] 2-19 YEARS EXCLUSIVE. Anion Gap 13 mmol/L [facility] ([facility] [...] HCT IS 5% LESS SOURCE FOR DATA: [employer] 1800 OPERATION MANUAL( AUTOMATED BLOOD COUNTS AND [...] HCT IS 5% LESS SOURCE FOR DATA: [employer] 1800 OPERATION MANUAL( AUTOMATED BLOOD COUNTS AND [...] INDIVIDUALA AGED 2-19 YEARS EXCLUSIVE. eGFR Non-Afr. Eritrean 63 # [facility] ([facility] CKD-EPI eGFR 72 # [facility] ( [facility] CKD-EPI ID Date Data Source [id number] 03/11/2020 08:50:00 AM EDT [facility] ([facility] Name Value Range Interpretation Code Description Data Su rce(s) Supporting Document(s) WBC 7.0 10E3/uL 4.1-10.9 [facility] ([facility] NORMAL RANGES Age WBC [...] HCT IS 5% LESS SOURCE FOR DATA: [employer] 1800 OPERATION MANUAL( AUTOMATED BLOOD COUNTS AND [...] AGED 2-19 YEARS EXCLUSIVE. RBC 4.55 10E6/uL 4.20-6.30 [facility] NORMAL RANGES Age WBC RBC [...] HCT IS 5% LESS SOURCE FOR DATA: [employer] 1800 OPERATION MANUAL( AUTOMATED BLOOD COUNTS AND [...] 2-19 YEARS EXCLUSIVE. HGB 13.9 g/dL 12.0-18.0 [facility] ([facility] NORMAL RANGES [...] HCT IS 5% LESS SOURCE FOR DATA: [employer] 1800 OPERATION MANUAL( AUTOMATED BLOOD COUNTS AND [...] 2-19 YEARS EXCLUSIVE. MCV 91.2 fL 80.0-97.0 [facility] ([facility], [...] HCT IS 5% LESS SOURCE FOR DATA: [employer] 1800 OPERATION MANUAL( AUTOMATED BLOOD COUNTS AND [...] 2-19 YEARS EXCLUSIVE. HCT 41.5 % 37.0-51.0 [facility] NORMAL RANGES Age WBC [...] HCT IS 5% LESS SOURCE FOR DATA: [employer] 1800 OPERATION MANUAL( AUTOMATED BLOOD COUNTS AND [...] 2-19 YEARS EXCLUSIVE. PLT 203 10E3/uL 140-440 [facility] ([facility] NORMAL RANGES Age WBC [...] HCT IS 5% LESS SOURCE FOR DATA: [employer] 1800 OPERATION MANUAL( AUTOMATED BLOOD COUNTS [...] 2-19 YEARS EXCLUSIVE. MCH 30.5 pg 26.0-32.0 [facility] ([facility] NORMAL [...] HCT IS 5% LESS SOURCE FOR DATA: [employer] 1800 OPERATION MANUAL( AUTOMATED BLOOD COUNTS AND [...] 2-19 YEARS EXCLUSIVE. MCHC 33.5 g/dL 31.0-36.0 [facility] ([facility] NORMAL RANGES Age WBC [...] HCT IS 5% LESS SOURCE FOR DATA: [employer] 1800 OPERATION MANUAL( AUTOMATED BLOOD COUNTS AND [...] 2-19 YEARS EXCLUSIVE. Lym% 27.9 % 10.0-58.5 [facility] ([facility] [...] HCT IS 5% LESS SOURCE FOR DATA: [employer] 1800 OPERATION MANUAL( AUTOMATED BLOOD COUNTS AND [...] 2-19 YEARS EXCLUSIVE. RDW-CV 13.6 % 11.5-14.5 [facility] ([facility], [...] HCT IS 5% LESS SOURCE FOR DATA: [employer] 1800 OPERATION MANUAL( AUTOMATED BLOOD COUNTS AND [...] 2-19 YEARS EXCLUSIVE. Neut% 61.3 % 37.0-92.0 [facility] ([facility] [...] HCT IS 5% LESS SOURCE FOR DATA: [employer] 1800 OPERATION MANUAL( AUTOMATED BLOOD COUNTS [...] 2-19 YEARS EXCLUSIVE. MXD% 10.8 % 0.1-24.0 [facility] ([facility] [...] HCT IS 5% LESS SOURCE FOR DATA: [employer] 1800 OPERATION MANUAL( AUTOMATED BLOOD COUNTS AND [...] 2-19 YEARS EXCLUSIVE. Lym# 2.0 10E3/uL 0.6-4.1 [facility] ([facility] NORMAL RANGES Age WBC [...] HCT IS 5% LESS SOURCE FOR DATA: [employer] 1800 OPERATION MANUAL( AUTOMATED BLOOD COUNTS AND [...] 2-19 YEARS EXCLUSIVE. Neut# 4.2 % 2.0-7.8 [facility] ([facility] NORMAL RANGES [...] HCT IS 5% LESS SOURCE FOR DATA: [employer] 1800 OPERATION MANUAL( AUTOMATED BLOOD COUNTS [...] 2-19 YEARS EXCLUSIVE. MPV 10.8 fL 9.0-13.0 [facility] ([facility] [...] HCT IS 5% LESS SOURCE FOR DATA: [employer] 1800 OPERATION MANUAL( AUTOMATED BLOOD COUNTS AND [...] 2-19 YEARS EXCLUSIVE. MXD# 0.8 10E3/uL 0.0-1.8 [facility] ([facility] NORMAL RANGES Age WBC [...] HCT IS 5% LESS SOURCE FOR DATA: [employer] 1800 OPERATION MANUAL( AUTOMATED BLOOD COUNTS AND [...] 2-19 YEARS EXCLUSIVE. ID Date Data Source [id number] 03/11/2020 01:45:00 PM EDT [facility] Name Value Range Interpretation Code Description Data Su rce(s) Supporting Document(s) Hemoglobin A1c/Hemoglobin.total in Blood 8.7 % 4.4 - 6.1 [facility] {A1]{HB] ID Date Data Source [id number] 12/17/2019 11:09:00 AM EDT [facility] ([facility] Name Value Range Interpretation Code Description Data Us rce(s) Supporting Document(s) Chol 157 mg/dL 0-200 [facility] [...] HCT IS 5% LESS SOURCE FOR DATA: [employer] 1800 OPERATION MANUAL( AUTOMATED BLOOD COUNTS AND [...] HCT IS 5% LESS SOURCE FOR DATA: [employer] 1800 OPERATION MANUAL( AUTOMATED BLOOD COUNTS AND [...] >32 mL/min Normal Trig 151 mg/dL 40-200 [facility] ([facility] [...] HCT IS 5% LESS SOURCE FOR DATA: [employer] 1800 OPERATION MANUAL( AUTOMATED BLOOD COUNTS AND [...] in Serum or Plasma 46 mg/dL 45-65 [facility] ([facility] NORMAL [...] HCT IS 5% LESS SOURCE FOR DATA: [employer] 1800 OPERATION MANUAL( AUTOMATED BLOOD COUNTS AND [...] >32 mL/min Normal Cho/HDL Ratio 3.4 CALC [facility] ([facility] NORMAL RANGES Age WBC RBC [...] HCT IS 5% LESS SOURCE FOR DATA: [employer] 1800 OPERATION MANUAL( AUTOMATED BLOOD COUNTS AND [...] >32 mL/min Normal ID Date Data Source [id number] 12/17/2019 11:09:00 AM EDT [facility] ([facility] Name Value Range Interpretation Code Description Data Su rce(s) Supporting Document(s) Creatine kinase [Enzymatic activity/volume] in Serum or Plasma 125 U/L 26-192 [facility] ([facility] NORMAL RANGES Age [...] HCT IS 5% LESS SOURCE FOR DATA: [employer] 1800 OPERATION MANUAL( AUTOMATED BLOOD COUNTS AND [...] >32 mL/min Normal ID Date Data Source [id number] 12/17/2019 11:09:00 AM [facility] ([facility] Name Value Range Interpretation Code Description Data Su rce(s) Supporting Document(s) Creat 1.0 mg/dL 0.5-1.0 [facility] ([facility] NORMAL RANGES [...] HCT IS 5% LESS SOURCE FOR DATA: [employer] 1800 OPERATION MANUAL( AUTOMATED BLOOD COUNTS AND [...] HCT IS 5% LESS SOURCE FOR DATA: [employer] 1800 OPERATION MANUAL( AUTOMATED BLOOD COUNTS AND [...] >32 mL/min Normal BUN 17 mg/dL 8-23 [facility] ([facility] NORMAL RANGES [...] HCT IS 5% LESS SOURCE FOR DATA: [employer] 1800 OPERATION MANUAL( AUTOMATED BLOOD COUNTS AND [...] >32 mL/min Normal Na 140 mmol/L 136-145 [facility] ([facility] NORMAL RANGES Age [...] HCT IS 5% LESS SOURCE FOR DATA: [employer] 1800 OPERATION MANUAL( AUTOMATED BLOOD COUNTS AND [...] above >32 mL/min Normal BUN/Creatinine Ratio 17.7 CALC [facility] ([facility] NORMAL RANGES Age [...] HCT IS 5% LESS SOURCE FOR DATA: [employer] 1800 OPERATION MANUAL( AUTOMATED BLOOD COUNTS AND [...] >32 mL/min Normal K 4.6 mmol/L 3.5-5.1 [facility] ([facility] NORMAL RANGES Age [...] HCT IS 5% LESS SOURCE FOR DATA: [employer] 1800 OPERATION MANUAL( AUTOMATED BLOOD COUNTS AND [...] >32 mL/min Normal CA 9.1 mg/dL 8.6-10.2 [facility] ([facility] NORMAL RANGES Age WBC [...] HCT IS 5% LESS SOURCE FOR DATA: [employer] 1800 OPERATION MANUAL( AUTOMATED BLOOD COUNTS AND [...] >32 mL/min Normal CL 105.3 mmol/L 98.0-107.0 [facility] ([facility] NORMAL RANGES Age WBC [...] HCT IS 5% LESS SOURCE FOR DATA: [employer] 1800 OPERATION MANUAL( AUTOMATED BLOOD COUNTS AND [...] >32 mL/min Normal Co2 26.3 mmol/L 22.0-29.0 [employer] [facility] NORMAL RANGES Age WBC RBC HGB [...] HCT IS 5% LESS SOURCE FOR DATA: [employer] 1800 OPERATION MANUAL( AUTOMATED BLOOD COUNTS AND [...] TP 6.4 g/dL 6.6-8.7 Below low normal [facility] ( [facility] NORMAL RANGES Age [...] HCT IS 5% LESS SOURCE FOR DATA: [employer] 1800 OPERATION MANUAL( AUTOMATED BLOOD COUNTS AND [...] >32 mL/min Normal A/G Ratio 1.5 CALC [employer] ([facility] NORMAL RANGES Age [...] HCT IS 5% LESS SOURCE FOR DATA: [employer] 1800 OPERATION MANUAL( AUTOMATED BLOOD COUNTS AND [...] >32 mL/min Normal Alb 3.8 g/dL 3.4-4.8 [facility] NORMAL RANGES Age [...] HCT IS 5% LESS SOURCE FOR DATA: [employer] 1800 OPERATION MANUAL( AUTOMATED BLOOD COUNTS AND [...] HCT IS 5% LESS SOURCE FOR DATA: [employer] 1800 OPERATION MANUAL( AUTOMATED BLOOD COUNTS AND [...] >32 mL/min Normal Alp 69.2 U/L 35-129 [facility] ([facility] [...] HCT IS 5% LESS SOURCE FOR DATA: [employer] 1800 OPERATION MANUAL( AUTOMATED BLOOD COUNTS AND [...] mL/min Normal Alt (SGPT) 17 U/L 0-41 [facility] ([facility] NORMAL RANGES [...] HCT IS 5% LESS SOURCE FOR DATA: [employer] 1800 OPERATION MANUAL( AUTOMATED BLOOD COUNTS AND [...] mL/min Normal Osmolality-Calculated 289.9 CALC [facility] ([facility] NORMAL RANGES Age [...] HCT IS 5% LESS SOURCE FOR DATA: [employer] 1800 OPERATION MANUAL( AUTOMATED BLOOD COUNTS AND [...] mL/min Normal Ast (Sgot) 18 U/L 0-40 [facility] ([facility] NORMAL RANGES Age WBC RBC HGB [...] HCT IS 5% LESS SOURCE FOR DATA: [employer] 1800 OPERATION MANUAL( AUTOMATED BLOOD COUNTS AND [...] >32 mL/min Normal Tbili 0.37 mg/dL 0.0-1.2 [facility] ([facility] NORMAL RANGES [...] HCT IS 5% LESS SOURCE FOR DATA: [employer] 1800 OPERATION MANUAL( AUTOMATED BLOOD COUNTS AND [...] and above >32 mL/min Normal eGFR Non-Afr. Eritrean 55 # [facility] ([facility] [...] HCT IS 5% LESS SOURCE FOR DATA: [employer] 1800 OPERATION MANUAL( AUTOMATED BLOOD COUNTS [...] HCT IS 5% LESS SOURCE FOR DATA: [employer] 1800 OPERATION MANUAL( AUTOMATED BLOOD COUNTS AND [...] >32 mL/min Normal Anion Gap 13 mmol/L [facility] NORMAL RANGES Age [...] HCT IS 5% LESS SOURCE FOR DATA: [employer] 1800 OPERATION MANUAL( AUTOMATED BLOOD COUNTS AND [...] >32 mL/min Normal ID Date Data Source [id number] 12/17/2019 11:09:00 AM BRAD DINH ([facility] Name Value Range Interpretation Code Description Data Su rce(s) Supporting Document(s) WBC 7.9 10E3/uL 4.1-10.9 [facility] ([facility] NORMAL RANGES Age WBC [...] HCT IS 5% LESS SOURCE FOR DATA: [employer] 1800 OPERATION MANUAL( AUTOMATED BLOOD COUNTS AND [...] >32 mL/min Normal HCT 40.7 % 37.0-51.0 [facility] ([facility] NORMAL [...] HCT IS 5% LESS SOURCE FOR DATA: [employer] 1800 OPERATION MANUAL( AUTOMATED BLOOD COUNTS AND [...] >32 mL/min Normal RBC 4.46 10E6/uL 4.20-6.30 [facility] ([facility] NORMAL RANGES Age WBC RBC [...] HCT IS 5% LESS SOURCE FOR DATA: [employer] 1800 OPERATION MANUAL( AUTOMATED BLOOD COUNTS AND [...] >32 mL/min Normal HGB 13.8 g/dL 12.0-18.0 [facility] ([facility] NORMAL RANGES Age WBC [...] HCT IS 5% LESS SOURCE FOR DATA: [employer] 1800 OPERATION MANUAL( AUTOMATED BLOOD COUNTS AND [...] >32 mL/min Normal MCV 91.3 fL 80.0-97.0 [facility] ([facility] NORMAL RANGES Age WBC [...] HCT IS 5% LESS SOURCE FOR DATA: [employer] 1800 OPERATION MANUAL( AUTOMATED BLOOD COUNTS AND [...] >32 mL/min Normal MCHC 33.9 g/dL 31.0-36.0 [facility] ([facility] NORMAL RANGES Age WBC [...] >32 mL/min Normal MCH 30.9 pg 26.0-32.0 [facility] ([facility] NORMAL RANGES [...] HCT IS 5% LESS SOURCE FOR DATA: [employer] 1800 OPERATION MANUAL( AUTOMATED BLOOD COUNTS [...] >32 mL/min Normal PLT 182 10E3/uL 140-440 [employer] ([facility] NORMAL RANGES Age WBC [...] HCT IS 5% LESS SOURCE FOR DATA: [employer] 1800 OPERATION MANUAL( AUTOMATED BLOOD COUNTS AND [...] >32 mL/min Normal RDW-CV 13.3 % 11.5-14.5 [facility] ([facility] NORMAL RANGES [...] HCT IS 5% LESS SOURCE FOR DATA: [employer] 1800 OPERATION MANUAL( AUTOMATED BLOOD COUNTS AND [...] >32 mL/min Normal Lym% 23.5 % 10.0-58.5 [facility] ([facility] NORMAL RANGES Age [...] HCT IS 5% LESS SOURCE FOR DATA: [employer] 1800 OPERATION MANUAL( AUTOMATED BLOOD COUNTS AND [...] >32 mL/min Normal Neut% 67.6 % 37.0-92.0 [facility] ([facility] [...] HCT IS 5% LESS SOURCE FOR DATA: [employer] 1800 OPERATION MANUAL( AUTOMATED BLOOD COUNTS AND [...] >32 mL/min Normal Lym# 1.9 10E3/uL 0.6-4.1 [facility] ([facility] NORMAL RANGES Age WBC [...] HCT IS 5% LESS SOURCE FOR DATA: [employer] 1800 OPERATION MANUAL( AUTOMATED BLOOD COUNTS AND [...] >32 mL/min Normal MXD% 8.9 % 0.1-24.0 [facility] ([facility] NORMAL RANGES [...] HCT IS 5% LESS SOURCE FOR DATA: [employer] 1800 OPERATION MANUAL( AUTOMATED BLOOD COUNTS AND [...] >32 mL/min Normal Neut# 5.3 % 2.0-7.8 [facility] ([facility] NORMAL RANGES [...] HCT IS 5% LESS SOURCE FOR DATA: [employer] 1800 OPERATION MANUAL( AUTOMATED BLOOD COUNTS AND [...] >32 mL/min Normal MXD# 0.7 10E3/uL 0.0-1.8 [facility] ([facility] NORMAL RANGES Age WBC [...] HCT IS 5% LESS SOURCE FOR DATA: [employer] 1800 OPERATION MANUAL( AUTOMATED BLOOD COUNTS AND [...] >32 mL/min Normal MPV 11.1 fL 9.0-13.0 [facility] ([facility] NORMAL RANGES [...] >32 mL/min Normal ID Date Data Source [id number] 12/17/2019 11:09:00 AM EDT [facility] ([facility] Name Value Range Interpretation Code Description Data Su rce(s) Supporting Document(s) Hemoglobin A1c/Hemoglobin.total in Blood 9.6 % 4.4-6.1 Above high normal [facility] ([facility] {A1] {HB] ID Date Data Source [id number] 12/17/2019 06:27:00 PM EDT [facility] Name Value Range Interpretation Code Description Data Su rce(s) Supporting Document(s) Hemoglobin A1c/Hemoglobin.total in Blood 9.6 % 4.4 - 6.1 H [facility] {A1]{HB] ID Date Data Source [id number] 09/17/2019 01:23:00 PM EDT [facility] ([facility] Name Value Range Interpretation Code Description Data Su rce(s) Supporting Document(s) Hemoglobin A1c/Hemoglobin.total in Blood 8.8 % 4.4-6.1 Above high normal [facility] ([facility] {A1] {HB] ID Date Data Source [id number] 09/17/2019 01:23:00 PM EDT [facility] ([facility] Name Value Range Interpretation Code Description Data Su rce(s) Supporting Document(s) Cholesterol in HDL [Mass/volume] in Serum or Plasma 45 mg/dL 45-65 [facility] ([facility] CLASSIFICATION CHOLESTEROL [...] HCT IS 5% LESS SOURCE FOR DATA: [employer] 1800 OPERATION MANUAL( AUTOMATED BLOOD COUNTS AND DIFF.) APPENDIX B-3 Trig 174 mg/dL 40-200 [facility] ([facility] CLASSIFICATION [...] DIFF.) APPENDIX B-3 Chol 150 mg/dL 0-200 [facility] ([facility], [...] DIFF.) APPENDIX B-3 Cho/HDL Ratio 3.4 CALC [facility] ([facility] CLASSIFICATION CHOLESTEROL FO R [...] HCT IS 5% LESS SOURCE FOR DATA: [employer] 1800 OPERATION MANUAL( AUTOMATED BLOOD COUNTS AND DIFF.) APPENDIX B-3 LDL_C 70 Calc 75-129 Below low normal [facility] ( [facility] [...] HCT IS 5% LESS SOURCE FOR DATA: [employer] 1800 OPERATION MANUAL( AUTOMATED BLOOD COUNTS AND DIFF.) APPENDIX B-3 ID Date Data Source [id number] 09/17/2019 01:23:00 PM EDT [facility] ([facility] Name Value Range Interpretation Code Description Data Su rce(s) Supporting Document(s) Creatine kinase [Enzymatic activity/volume] in Serum or Plasma 127 U/L 26-192 [facility] ([facility] CLASSIFICATION CHOLESTEROL FO [...] HCT IS 5% LESS SOURCE FOR DATA: [employer] 1800 OPERATION MANUAL( AUTOMATED BLOOD COUNTS AND DIFF.) APPENDIX B-3 ID Date Data Source [id number] 09/17/2019 01:23:00 PM EDT [facility] ([facility] Name Value Range Interpretation Code Description Data Su rce(s) Supporting Document(s) Glu 215 mg/dL 70-110 Above high normal [facility] ([facility] CLASSIFICATION CHOLESTEROL FO [...] AND DIFF.) APPENDIX B-3 BUN 20 mg/dL 8 [facility] ([facility] CLASSIFICATION CHOLESTEROL [...] HCT IS 5% LESS SOURCE FOR DATA: [employer] 1800 OPERATION MANUAL( AUTOMATED BLOOD COUNTS AND DIFF.) APPENDIX B-3 BUN/Creatinine Ratio 21.0 CALC [facility] ([facility] CLASSIFICATION CHOLESTEROL FO [...] DIFF.) APPENDIX B-3 Na 141 mmol/L 136-145 [facility] ([facility] CLASSIFICATION CHOLESTEROL FO R ADULTS [...] APPENDIX B-3 K 4.6 mmol/L 3.5-5.1 [facility] ([facility] CLASSIFICATION CHOLESTEROL [...] HCT IS 5% LESS SOURCE FOR DATA: [employer] 1800 OPERATION MANUAL( AUTOMATED BLOOD COUNTS AND DIFF.) APPENDIX B-3 CL 106.6 mmol/L 98.0-107.0 [facility] ([facility] CLASSIFICATION CHOLESTEROL FO R [...] DIFF.) APPENDIX B-3 Co2 22.5 mmol/L 22.0-29.0 [facility] ([facility] CLASSIFICATION CHOLESTEROL FO R [...] HCT IS 5% LESS SOURCE FOR DATA: [employer] 1800 OPERATION MANUAL( AUTOMATED BLOOD COUNTS AND DIFF.) APPENDIX B-3 TP 6.3 g/dL 6.6-8.7 Below low normal [facility] ( [facility] CLASSIFICATION CHOLESTEROL [...] HCT IS 5% LESS SOURCE FOR DATA: [employer] 1800 OPERATION MANUAL( AUTOMATED BLOOD COUNTS AND [...] APPENDIX B-3 Alb 3.7 g/dL 3.4-4.8 [facility] ([facility] CLASSIFICATION [...] DIFF.) APPENDIX B-3 Globulin 2.6 CALC [facility] ([facility] CLASSIFICATION CHOLESTEROL FO [...] HCT IS 5% LESS SOURCE FOR DATA: [employer] 1800 OPERATION MANUAL( AUTOMATED BLOOD COUNTS [...] HCT IS 5% LESS SOURCE FOR DATA: [employer] 1800 OPERATION MANUAL( AUTOMATED BLOOD COUNTS AND DIFF.) APPENDIX B-3 Alt (SGPT) 19 U/L 0-41 [facility] ([facility] CLASSIFICATION CHOLESTEROL FO R ADULTS [...] HCT IS 5% LESS SOURCE FOR DATA: [employer] 1800 OPERATION MANUAL( AUTOMATED BLOOD COUNTS AND DIFF.) APPENDIX B-3 Alp 70.2 U/L 35-129 [facility] ([facility] CLASSIFICATION CHOLESTEROL FO R [...] HCT IS 5% LESS SOURCE FOR DATA: [employer] 1800 OPERATION MANUAL( AUTOMATED BLOOD COUNTS AND DIFF.) APPENDIX B-3 Ast (Sgot) 18 U/L 0-40 [facility] ([facility] CLASSIFICATION CHOLESTEROL [...] DIFF.) APPENDIX B-3 Tbili 0.38 mg/dL 0.0-1.2 [facility] ([facility] CLASSIFICATION CHOLESTEROL [...] DIFF.) APPENDIX B-3 Anion Gap 16 mmol/L [facility] CLASSIFICATION CHOLESTEROL FO [...] HCT IS 5% LESS SOURCE FOR DATA: [employer] 1800 OPERATION MANUAL( AUTOMATED BLOOD COUNTS AND DIFF.) APPENDIX B-3 eGFR Non-Afr. Eritrean 63 # [facility] ([facility] [...] HCT IS 5% LESS SOURCE FOR DATA: [employer] 1800 OPERATION MANUAL( AUTOMATED BLOOD COUNTS AND DIFF.) APPENDIX B-3 ID Date Data Source [id number] 09/17/2019 01:23:00 PM EDT [facility] ([facility] Name Value Range Interpretation Code Description Data Su rce(s) Supporting Document(s) WBC 8.4 10E3/uL 4.1-10.9 [facility] ([facility] CLASSIFICATION CHOLESTEROL FO R [...] HCT IS 5% LESS SOURCE FOR DATA: [employer] 1800 OPERATION MANUAL( AUTOMATED BLOOD COUNTS AND DIFF.) APPENDIX B-3 RBC 4.48 10E6/uL 4.20-6.30 [facility] ([facility] CLASSIFICATION CHOLESTEROL FO R [...] HCT IS 5% LESS SOURCE FOR DATA: [employer] 1800 OPERATION MANUAL( AUTOMATED BLOOD COUNTS AND [...] APPENDIX B-3 HCT 41.0 % 37.0-51.0 [facility] ([facility] CLASSIFICATION [...] APPENDIX B-3 HGB 13.8 g/dL 12.0-18.0 [facility] ([facility] CLASSIFICATION CHOLESTEROL FO R [...] HCT IS 5% LESS SOURCE FOR DATA: [employer] 1800 OPERATION MANUAL( AUTOMATED BLOOD COUNTS AND DIFF.) APPENDIX B-3 PLT 194 10E3/uL 140-440 [facility] ([facility] CLASSIFICATION CHOLESTEROL FO R [...] DIFF.) APPENDIX B-3 MCHC 33.7 g/dL 31.0-36.0 [facility] ([facility] CLASSIFICATION [...] DIFF.) APPENDIX B-3 MCH 30.8 pg 26.0-32.0 [facility] ([facility] CLASSIFICATION CHOLESTEROL [...] HCT IS 5% LESS SOURCE FOR DATA: [employer] 1800 OPERATION MANUAL( AUTOMATED BLOOD COUNTS AND DIFF.) APPENDIX B-3 RDW-CV 13.2 % 11.5-14.5 [facility] ([facility] [...] HCT IS 5% LESS SOURCE FOR DATA: [employer] 1800 OPERATION MANUAL( AUTOMATED BLOOD COUNTS AND DIFF.) APPENDIX B-3 Lym# 1.9 10E3/uL 0.6-4.1 [facility] ([facility] CLASSIFICATION CHOLESTEROL FO R [...] HCT IS 5% LESS SOURCE FOR DATA: [employer] 1800 OPERATION MANUAL( AUTOMATED BLOOD COUNTS AND [...] DIFF.) APPENDIX B-3 Neut% 68.8 % 37.0-92.0 [facility] CLASSIFICATION CHOLESTEROL FO [...] HCT IS 5% LESS SOURCE FOR DATA: [employer] 1800 OPERATION MANUAL( AUTOMATED BLOOD COUNTS AND DIFF.) APPENDIX B-3 MXD# 0.8 10E3/uL 0.0-1.8 [facility] ([facility] CLASSIFICATION CHOLESTEROL FO R [...] HCT IS 5% LESS SOURCE FOR DATA: [employer] 1800 OPERATION MANUAL( AUTOMATED BLOOD COUNTS AND DIFF.) APPENDIX B-3 MPV 11.3 fL 9.0-13.0 [facility] ([facility] CLASSIFICATION [...] HCT IS 5% LESS SOURCE FOR DATA: [employer] 1800 OPERATION MANUAL( AUTOMATED BLOOD COUNTS AND DIFF.) APPENDIX B-3 Neut# 5.7 % 2.0-7.8 [facility] CLASSIFICATION CHOLESTEROL FO [...] HCT IS 5% LESS SOURCE FOR DATA: [employer] 1800 OPERATION MANUAL( AUTOMATED BLOOD COUNTS AND DIFF.) APPENDIX B-3 ID Date Data Source [id number] 09/17/2019 05:53:00 PM EDT [facility] Name Value Range Interpretation Code Description Data Su rce(s) Supporting Document(s) Hemoglobin A1c/Hemoglobin.total in Blood 8.8 % 4.4 - 6.1 H [facility] {A1]{HB] ID Date Data Source [id number] 06/20/2019 09:17:00 AM EST [facility] ([facility] Name Value Range Interpretation Code Description Data Su rce(s) Supporting Document(s) Hemoglobin A1c/Hemoglobin.total in Blood 9.5 % 4.4-6.1 Above high normal [facility] ([facility] {A1] {HB] ID Date Data Source [id number] 06/20/2019 09:17:00 AM EST [facility] ([facility] [...] DIFF.) APPENDIX B-3 Clarity Laboratory test result [facility] ([facility] CLASSIFICATION CHOLESTEROL FO [...] HCT IS 5% LESS SOURCE FOR DATA: [employer] 1800 OPERATION MANUAL( AUTOMATED BLOOD COUNTS AND DIFF.) APPENDIX B-3 Glucose-Ua Laboratory test result [facility] ([facility] CLASSIFICATION CHOLESTEROL FO [...] DIFF.) APPENDIX B-3 Ketone Laboratory test result [facility] ([facility] CLASSIFICATION CHOLESTEROL FO [...] HCT IS 5% LESS SOURCE FOR DATA: [employer] 1800 OPERATION MANUAL( AUTOMATED BLOOD COUNTS AND DIFF.) APPENDIX B-3 Bilirubin,Urine Laboratory test result [facility] ([facility] CLASSIFICATION CHOLESTEROL FO [...] HCT IS 5% LESS SOURCE FOR DATA: [employer] 1800 OPERATION MANUAL( AUTOMATED BLOOD COUNTS AND [...] HCT IS 5% LESS SOURCE FOR DATA: [employer] 1800 OPERATION MANUAL( AUTOMATED BLOOD COUNTS AND DIFF.) APPENDIX B-3 pH 6.0 # 5.0-8.0 [facility] ([facility] CLASSIFICATION CHOLESTEROL [...] HCT IS 5% LESS SOURCE FOR DATA: [employer] 1800 OPERATION MANUAL( AUTOMATED BLOOD COUNTS AND DIFF.) APPENDIX B-3 Protein Laboratory test result [facility] ([facility] CLASSIFICATION CHOLESTEROL FO [...] DIFF.) APPENDIX B-3 Nitrite Laboratory test result [facility] ([facility] CLASSIFICATION CHOLESTEROL FO [...] HCT IS 5% LESS SOURCE FOR DATA: [employer] 1800 OPERATION MANUAL( AUTOMATED BLOOD COUNTS AND DIFF.) APPENDIX B-3 Urobilinogen 0.2 NA 0.2-1.0 [facility] ([facility] CLASSIFICATION [...] HCT IS 5% LESS SOURCE FOR DATA: [employer] 1800 OPERATION MANUAL( AUTOMATED BLOOD COUNTS AND DIFF.) APPENDIX B-3 Leukocyte Laboratory test result [facility] ([facility] CLASSIFICATION CHOLESTEROL FO [...] HCT IS 5% LESS SOURCE FOR DATA: [employer] 1800 OPERATION MANUAL( AUTOMATED BLOOD COUNTS AND DIFF.) APPENDIX B-3 ID Date Data Source [id number] 06/20/2019 09:17:00 AM EST [facility] ([facility] [...] HCT IS 5% LESS SOURCE FOR DATA: [employer] 1800 OPERATION MANUAL( AUTOMATED BLOOD COUNTS AND DIFF.) APPENDIX B-3 Trig 80 mg/dL 40-200 [facility] CLASSIFICATION CHOLESTEROL FO [...] HCT IS 5% LESS SOURCE FOR DATA: [employer] 1800 OPERATION MANUAL( AUTOMATED BLOOD COUNTS AND DIFF.) APPENDIX B-3 Cho/HDL Ratio 3.2 Calc [facility] ([facility] CLASSIFICATION CHOLESTEROL FO R [...] Serum or Plasma 47 mg/dL 45-6 5 [facility] ([facility] CLASSIFICATION CHOLESTEROL [...] HCT IS 5% LESS SOURCE FOR DATA: [employer] 1800 OPERATION MANUAL( AUTOMATED BLOOD COUNTS AND DIFF.) APPENDIX B-3 LDL_C 88 Calc 75-129 [facility] CLASSIFICATION CHOLESTEROL FO [...] HCT IS 5% LESS SOURCE FOR DATA: [employer] 1800 OPERATION MANUAL( AUTOMATED BLOOD COUNTS AND DIFF.) APPENDIX B-3 ID Date Data Source [id number] 06/20/2019 09:17:00 AM DES [facility] ([facility] Name Value Range Interpretation Code Description Data Su rce(s) Supporting Document(s) Creatine kinase [Enzymatic activity/volume] in Serum or Plasma 145 U/L 26-192 [facility] ([facility] CLASSIFICATION CHOLESTEROL FO [...] DIFF.) APPENDIX B-3 ID Date Data Source [id number] 06/20/2019 09:17:00 AM EST [facility] ([facility] Name Value Range Interpretation Code Description Data Su rce(s) Supporting Document(s) Glu 145 mg/dL 70-110 Above high normal [facility] ([facility] CLASSIFICATION CHOLESTEROL FO [...] HCT IS 5% LESS SOURCE FOR DATA: [employer] 1800 OPERATION MANUAL( AUTOMATED BLOOD COUNTS AND DIFF.) APPENDIX B-3 BUN 16 mg/dL 8- [facility] CLASSIFICATION CHOLESTEROL FO [...] HCT IS 5% LESS SOURCE FOR DATA: [employer] 1800 OPERATION MANUAL( AUTOMATED BLOOD COUNTS AND DIFF.) APPENDIX B-3 K 5.0 mmol/L 3.5-5.1 [facility] ([facility] CLASSIFICATION CHOLESTEROL [...] HCT IS 5% LESS SOURCE FOR DATA: [employer] 1800 OPERATION MANUAL( AUTOMATED BLOOD COUNTS AND DIFF.) APPENDIX B-3 Na 139 mmol/L 136-145 [facility] ([facility] CLASSIFICATION CHOLESTEROL FO R ADULTS [...] APPENDIX B-3 BUN/Creatinine Ratio 18.5 CALC [facility] ([facility] CLASSIFICATION CHOLESTEROL FO [...] HCT IS 5% LESS SOURCE FOR DATA: [employer] 1800 OPERATION MANUAL( AUTOMATED BLOOD COUNTS AND DIFF.) APPENDIX B-3 CL 104.2 mmol/L 98.0-107.0 [facility] ([facility] CLASSIFICATION CHOLESTEROL FO R [...] APPENDIX B-3 Co2 27.5 mmol/L 22.0-29.0 [facility] ([facility] CLASSIFICATION CHOLESTEROL FO R [...] DIFF.) APPENDIX B-3 CA 9.2 mg/dL 8.6-10.2 [facility] ([facility] [facility] CLASSIFICATION CHOLESTEROL FO [...] HCT IS 5% LESS SOURCE FOR DATA: [employer] DYN 1800 OPERATION MANUAL( AUTOMATED BLOOD COUNTS AND DIFF.) APPENDIX B-3 TP 6.4 g/dL 6.6-8.7 Below low normal [facility] ( [facility] CLASSIFICATION CHOLESTEROL [...] HCT IS 5% LESS SOURCE FOR DATA: [employer] DYN 1800 OPERATION MANUAL( AUTOMATED BLOOD COUNTS AND DIFF.) APPENDIX B-3 Globulin 2.5 CALC [facility] CLASSIFICATION CHOLESTEROL FO [...] IS 5% LESS SOURCE FOR DATA: [employer] 1800 OPERATION MANUAL( AUTOMATED BLOOD COUNTS AND [...] HCT IS 5% LESS SOURCE FOR DATA: [employer] DYN 1800 OPERATION MANUAL( AUTOMATED BLOOD COUNTS AND DIFF.) APPENDIX B-3 Alb 3.8 g/dL 3.4-4.8 [facility] CLASSIFICATION CHOLESTEROL FO [...] HCT IS 5% LESS SOURCE FOR DATA: [employer] DYN 1800 OPERATION MANUAL( AUTOMATED BLOOD COUNTS AND DIFF.) APPENDIX B-3 Alt (SGPT) 18 U/L 0-41 [facility] ([facility] CLASSIFICATION CHOLESTEROL FO R ADULTS [...] DIFF.) APPENDIX B-3 Alp 63.7 U/L 35-129 [facility] CLASSIFICATION CHOLESTEROL FO [...] HCT IS 5% LESS SOURCE FOR DATA: [employer] 1800 OPERATION MANUAL( AUTOMATED BLOOD COUNTS AND [...] B-3 Tbili 0.49 mg/dL 0.0-1.2 [facility] ([facility] CLASSIFICATION CHOLESTEROL FO R [...] APPENDIX B-3 Ast (Sgot) 20 U/L 0-40 [facility] ([facility] CLASSIFICATION CHOLESTEROL [...] HCT IS 5% LESS SOURCE FOR DATA: [employer] 1800 OPERATION MANUAL( AUTOMATED BLOOD COUNTS AND [...] HCT IS 5% LESS SOURCE FOR DATA: [employer] DYN 1800 OPERATION MANUAL( AUTOMATED BLOOD COUNTS AND DIFF.) APPENDIX B-3 eGFR Non-Afr. Eritrean 63 # [facility] ([facility] CKD-EPI ID Date Data Source [id number] 06/20/2019 09:17:00 AM EST [facility] ([facility] Name Value Range Interpretation Code Description Data Su rce(s) Supporting Document(s) RBC 4.48 10E6/uL 4.20-6.30 [facility] ([facility] [...] HCT IS 5% LESS SOURCE FOR DATA: [employer] 1800 OPERATION MANUAL( AUTOMATED BLOOD COUNTS AND DIFF.) APPENDIX B-3 WBC 6.7 10E3/uL 4.1-10.9 [facility] ([facility] CLASSIFICATION CHOLESTEROL FO R [...] B-3 HGB 13.8 g/dL 12.0-18.0 [facility] ([facility] CLASSIFICATION [...] DIFF.) APPENDIX B-3 HCT 41.2 % 37.0-51.0 [facility] ([facility] CLASSIFICATION CHOLESTEROL [...] HCT IS 5% LESS SOURCE FOR DATA: [employer] 1800 OPERATION MANUAL( AUTOMATED BLOOD COUNTS AND DIFF.) APPENDIX B-3 MCH 30.8 pg 26.0-32.0 [facility] ([facility] CLASSIFICATION [...] HCT IS 5% LESS SOURCE FOR DATA: [employer] DYN 1800 OPERATION MANUAL( AUTOMATED BLOOD COUNTS AND DIFF.) APPENDIX B-3 RDW-CV 13.2 % 11.5-14.5 [facility] ([facility] CLASSIFICATION CHOLESTEROL FO R [...] DIFF.) APPENDIX B-3 PLT 199 10E3/uL 140-440 [facility] ([facility] CLASSIFICATION CHOLESTEROL FO R [...] APPENDIX B-3 MCHC 33.5 g/dL 31.0-36.0 [facility] ([facility] CLASSIFICATION [...] HCT IS 5% LESS SOURCE FOR DATA: [employer] DYN 1800 OPERATION MANUAL( AUTOMATED BLOOD COUNTS AND DIFF.) APPENDIX B-3 Lym% 27.5 % 10.0-58.5 [facility] ([facility] CLASSIFICATION CHOLESTEROL FO R [...] HCT IS 5% LESS SOURCE FOR DATA: [employer] 1800 OPERATION MANUAL( AUTOMATED BLOOD COUNTS AND DIFF.) APPENDIX B-3 Neut% 63.4 % 37.0-92.0 [facility] ([facility] [...] HCT IS 5% LESS SOURCE FOR DATA: [employer] 1800 OPERATION MANUAL( AUTOMATED BLOOD COUNTS AND DIFF.) APPENDIX B-3 Lym# 1.8 10E3/uL 0.6-4.1 [facility] ([facility] CLASSIFICATION CHOLESTEROL FO R [...] HCT IS 5% LESS SOURCE FOR DATA: [employer] 1800 OPERATION MANUAL( AUTOMATED BLOOD COUNTS AND [...] HCT IS 5% LESS SOURCE FOR DATA: [employer] 1800 OPERATION MANUAL( AUTOMATED BLOOD COUNTS AND DIFF.) APPENDIX B-3 Neut# 4.3 % 2.0-7.8 [facility] CLASSIFICATION CHOLESTEROL FO [...] HCT IS 5% LESS SOURCE FOR DATA: [employer] 1800 OPERATION MANUAL( AUTOMATED BLOOD COUNTS AND DIFF.) APPENDIX B-3 MXD# 0.6 10E3/uL 0.0-1.8 [facility] ([facility] CLASSIFICATION CHOLESTEROL FO R [...] HCT IS 5% LESS SOURCE FOR DATA: [employer] 1800 OPERATION MANUAL( AUTOMATED BLOOD COUNTS AND DIFF.) APPENDIX B-3 MPV 11.4 fL 9.0-13.0 [facility] ([facility] CLASSIFICATION [...] DIFF.) APPENDIX B-3 ID Date Data Source [id number] 06/20/2019 02:24:00 PM EST [facility] Name Value Range Interpretation Code Description Data Su rce(s) Supporting Document(s) Hemoglobin A1c/Hemoglobin.total in Blood 9.5 % 4.4 - 6.1 H [facility] {A1]{HB] Procedure Social History Code Duration Value Status Description Data Source(s ) Smoking 02/14/2020 12:00:00 AM EDT Patient has never smoked co mpleted Patient has never smoked [facility] ([facility] Vital Signs ID Date Data Source UNK Name Value Range Interpretation Code Description Data Source(s) Oxygen saturation in Arterial blood by Pulse oximetry 96 % 96 % [facility] ([facility] Body mass index (BMI) [Ratio] 35.7 kg/m2 35.7 k g/m2 [facility] ([facility] [place] body weight 130 [lb_av] 130 [lb_av] MED[facility] T ([facility] Body weight 221.00 [lb_av] 221.00 [lb_av] MED[facility] T ([facility] Body height 66 [in_i] 66 [in_i] [facility] ([facility] 5'6" Respiratory rate 18 /min 18 /min [facility] ( [facility] Heart rate 90 /min 90 /min [facility] ([facility] Body temperature 97.9 [degF] 97.9 [degF] [facility] ([facility] Diastolic blood pressure 52 mm[Hg] 52 mm[Hg] [facility] ([facility] Systolic blood pressure 102 mm[Hg] 102 mm[Hg] M EDENT ([facility] Oxygen saturation in Arterial blood by Pulse oximetry 97 % 97 % [facility] ([facility] (AT Rest), (Room Air) Body mass index (BMI) [Ratio] 36.0 kg/m2 36.0 k g/m2 [facility] ([facility] [place] body weight 130 [lb_av] 130 [lb_av] MED[facility] T ([facility] Body weight 223.00 [lb_av] 223.00 [lb_av] [facility] T ([facility] Body height 66 [in_i] 66 [in_i] [facility] ([facility] 5'6" Respiratory rate 16 [...] k g/m2 [facility] ([facility] [place] body weight 130 [lb_av] 130 [lb_av] MED[facility] T ([facility] Body weight 225.00 [lb_av] 225.00 [lb_av] MED[facility] T ([facility] Body height 66 [in_i] 66 [in_i] [facility] ([facility] 5'6" Respiratory rate 16 [...] k g/m2 [facility] ([facility] [place] body weight 130 [lb_av] 130 [lb_av] MED[facility] T ([facility] Body weight 227.00 [lb_av] 227.00 [lb_av] MED[facility] T ([facility] Body height 66 [in_i] 66 [in_i] [facility] ([facility] 5'6" Respiratory rate 18 [...] k g/m2 [facility] ([facility] [place] body weight 130 [lb_av] 130 [lb_av] MED[facility] T ([facility] Body weight 224.00 [lb_av] 224.00 [lb_av] MED[facility] T ([facility] Body height 66 [in_i] 66 [in_i] [facility] ([facility] 5'6" Oxygen saturation in Arterial blood by Pulse oximetry 95 % 95 % [facility] ([facility] (AT Rest), (Room Air) Body mass index (BMI) [Ratio] 36.6 kg/m2 36.6 k g/m2 [facility] ([facility] Body weight 227.00 [lb_av] 227.00 [lb_av] MED[facility] T ([facility] Body height 66 [in_i] 66 [in_i] [facility] ([facility] 5'6" Respiratory rate 20 [...] Body height 66 [in_i] 66 [in_i] [facility] 5'6" Respiratory rate 18 [...] Pulse oximetry 98 % 98 % [facility] ([facility] Body mass index (BMI) [Ratio] 36.3 kg/m2 36.3 k g/m2 [facility] ([facility] Body weight 225.00 [lb_av] 225.00 [lb_av] MED[facility] T ([facility] Body height 66 [in_i] 66 [in_i] [facility] 5'6" Respiratory rate 14 /min 14 /min [facility] ( [facility] Heart rate 68 /min 68 /min [facility] ([facility] Body temperature 97.8 [degF] 97.8 [degF] [facility] ([facility] Diastolic blood pressure 74 mm[Hg] 74 mm[Hg] [facility] ([facility] Systolic blood pressure 132 mm[Hg] 132 mm[Hg] M RICARDO ([facility] Oxygen saturation in Arterial blood by Pulse oximetry 96 % 96 % [facility] ([facility] Body mass index (BMI) [Ratio] 36.5 kg/m2 36.5 k g/m2 [facility] ([facility] Body weight 226.00 [lb_av] 226.00 [lb_av] MEDEN T ([facility] Body height 66 [in_i] 66 [in_i] [facility] ([facility] 5'6" Respiratory rate 14 /min 14 /min [facility] ( [facility] Heart rate 70 /min 70 /min [facility] ([facility] Body temperature 97.9 [degF] 97.9 [degF] [facility] ([facility] Diastolic blood pressure 52 mm[Hg] 52 mm[Hg] [facility] ([facility] Systolic blood pressure 124 mm[Hg] 124 mm[Hg] M RICARDO ([facility] ID Date Data Source [id number] 07/14/2020 02:52:03 PM EST [facility] Name Value Range Interpretation Code Description Data Source(s) WEIGHT RECORDED 215.80 pounds 215.80 pounds [facility] Height 68 Inches 068 Inches [facility]
[2020-07-15 14:25] VITALS: BP 137/64
[2020-07-15] MEDS ORDERED: GLUCAGON INJ 1MG VIAL SC PRN (16:45)
[2020-07-15] MEDS ORDERED: GLUCOSE 4GM CHEW TABLET PO PRN (16:45)
[2020-07-15] MEDS ORDERED: DEXTROSE 50% 50 ML SYRINGE IV PRN (16:45)
[2020-07-15] MEDS ORDERED: **NOTE PATIENT COMMENT** MISC XX SCH (16:45)
--- NOTE | 2020-07-15 16:49 | CR ---
CONSULTATION DATE: 07/15/2020 REASON FOR CONSULTATION: Medications for the patient's diabetes. HISTORY OF PRESENT ILLNESS: This patient is admitted to the inpatient mental health unit with suicidal ideation. She was on sertraline as an outpatient. Her other medications were atorvastatin 40 mg daily, bisoprolol 5 mg daily, doxazosin 4 mg daily, Jardiance 10 mg daily, hydrochlorothiazide 25 mg daily, omeprazole 40 mg daily, Quinapril 40 mg daily, sertraline 25 mg daily, and Tresiba 78 units b.i.d. (skeptical that was the dosing on the Tresiba as an outpatient it is a once a day insulin that actually has about a 48 hour half-life; so it would be irrational to prescribe this twice daily). When she was admitted to the hospitalist service overnight, her blood sugars were between 60 and 130. She required no insulin coverage. Her hemoglobin A1c was 7.9, which is satisfactory control for someone at 74 years old. PHYSICAL EXAMINATION: Vital signs stable. RECOMMENDATIONS: 1. Her diabetes could be treated with Jardiance 10 mg daily; this does not cause hypoglycemia, which she experienced on the floor. I would recommend fingerstick blood sugars a.c. and h.s. with insulin coverage per sliding scale for a few days to see what her actual insulin requirements all on an enforced consistent carbohydrate diet. At that point, she could be started on a basal insulin, in this hospital it would be detemir insulin. 2. Hyperlipidemia. Recommend restarting atorvastatin at previous dose. 3. Hypertension. Recommend restarting bisoprolol at previous dose. Orders for these medications have been entered.
[2020-07-15] MEDS: HumaLOG INSULIN (NovoLOG) PER UNIT SC SCH (17:16)
[2020-07-15] MEDS ORDERED: HumaLOG INSULIN (NovoLOG) PER UNIT SC SCH (21:00)
[2020-07-15] MEDS ORDERED: ATORVASTATIN 20 MG TAB PO SCH (21:00)
[2020-07-15] MEDS: ACETAMINOPHEN TAB 650MG DOSE (2X325MG) PO PRN (23:26)
[2020-07-16] MEDS: ACETAMINOPHEN TAB 650MG DOSE (2X325MG) PO PRN ×2 (06:23→13:06)
[2020-07-16 07:17] VITALS: BP 164/80
[2020-07-16] MEDS: HumaLOG INSULIN (NovoLOG) PER UNIT SC SCH ×3 (07:30→17:30)
[2020-07-16] MEDS ORDERED: bisoproloL fumarate 5 MG TAB PO SCH (09:00)
--- NOTE | 2020-07-16 09:23 | IPN ---
PROGRESS NOTE DATE: 07/16/2020 SUBJECTIVE: Tova is seen in the mental health unit. Blood sugars have been within acceptable range 90 to 100. She took a suspected overdose of her Tresiba a very long acting basal insulin; probably still dealing with some of the affects of that. OBJECTIVE: VITAL SIGNS: Blood pressure is mildly elevated today, but she is having some musculoskeletal back pain. Blood pressure 164/80, afebrile. GENERAL APPEARANCE: Alert and conversant, in no distress. LUNGS: Clear. HEART: Regular rate and rhythm. ABDOMEN: Soft, obese, and nontender. No peripheral edema. Little tender to palpate in the paravertebral muscles and thoracic spine. EXTREMITIES: No clubbing, cyanosis, or edema. LABORATORY DATA: Blood sugars are 90 to 100. IMPRESSION/PLAN: 1. Type 2 diabetes. She is supposed to be taking her own Jardiance 10 mg daily, which when taken as monotherapy does not cause hypoglycemia. Her Tresiba is probably still wearing off, so I am going to continue her fingersticks frequently during the day today, but we will probably back off on these tomorrow. 2. Hypertension, well-controlled on her bisoprolol. 3. Hyperlipidemia. Continue her atorvastatin.
[2020-07-16 10:18] VITALS: BP 144/86
[2020-07-16 14:51] VITALS: BP 116/74
[2020-07-16 15:45] VITALS: O2SAT 86
[2020-07-16] MEDS ORDERED: **NOTE PATIENT COMMENT** MISC XX SCH (17:30)
--- NOTE | 2020-07-16 17:30 | IPN ---
PROGRESS NOTE DATE: 07/16/2020 SUBJECTIVE: Tova is being admitted to the medical floor. She was admitted on 07/14, after hypoglycemia related to an overdose of Tresiba insulin. She recovered from that. She has a history of recent COVID infection. I was told the patient was past quarantine, but informed by nurse supervisor rework now that she has another day or two of quarantine so she is being admitted to the COVID unit. She was hypoglycemia on admission, which resolved after she was admitted and she was not hypoglycemic in [facility]. Today when I saw her in [facility], she was complaining about of some left upper back pain that had a respiratory component. This has gotten worse as the day has gone by. She also has been having some diarrhea problems that are probably COVID related. Other past history shows hypertension, depression, elevated liver function tests from presumed fatty liver, obesity with BMI of 31, and a history of depression. Past history, social history, medication history, etc. are all recently documented on the 07/14/2020 admission. OBJECTIVE: VITAL SIGNS: Blood pressure 118/74, pulse 100, respiratory rate 18, temperature 97.6, O2 saturation 86% to 87% on room air (I asked respiratory therapy to check this. The respiratory therapist kindly when down to [facility] and did confirm O2 saturations on room air were 86%). HEENT: Earlier today was unremarkable. LUNGS: Clear. HEART: Regular rhythm. ABDOMEN: Soft and nontender. EXTREMITIES: No peripheral edema, warmth, or any swelling of her joints. Paravertebral muscles left upper back were tender to palpate. IMPRESSION/PLAN: 1. Hypoxemia. The patient is actually not out of quarantine for her COVID. She will be transferred to the COVID unit. Supplemental oxygen has been given. I have ordered a stat CT angiogram of the chest to rule out pulmonary embolism, infiltrate, etc. She has had some back pain that might be splinting, but there is a possibility that back pain is actually somewhat pleuritic and needs further workup. 2. Hypoglycemia. This has resolved as the Tresiba has worn out of her system. She is on sliding scale insulin coverage. She takes Jardiance 10 mg daily at home, which should not cause hypoglycemia when it is restarted. 3. Hypertension. Continue current medications. 4. Hyperlipidemia. Continue current medications.
--- NOTE | 2020-07-16 17:54 | MHHPE ---
[facility] HISTORY AND PHYSICAL DATE OF ADMISSION: 07/15/2020 This is a video assessment. It is being done because of the COVID pandemic. This is an admission and discharge note, as the patient has been in inpatient unit at [facility]. Came in yesterday from the medical floor, where she was seen on consult by me two days ago, July 14. Please refer to my consult summary for details related to the reason for consult, background history, and assessment at that time. I was asked to see her at that time, as there were concerns that she was depressed and was suicidal. The diagnosis was adjustment disorder with depressed mood to rule out a major depressive disorder. She is COVID positive. When she was medically cleared on the floor, she was transferred to the inpatient unit. She is on sertraline at 25 mg daily. Has been feeling depressed lately. She suggests this is since has been diagnosed with COVID and had initially indicated that she was "tired of all this COVID." Was diagnosed about just over a week or so ago. Has several medical problems and had come into the hospital after she had expressed those concerns and was found to be hypoglycemic as well, admitted to the medical floor and stabilized. Currently says does not feel well and that she has pain, particularly in the back. Feels tired. Acknowledges feels depressed but denies any thoughts of harming herself. Denies any plan to do so either. PAST PSYCHIATRIC HISTORY: Has had a hospitalization in the 80s. No recent outpatient psychiatric care. Has been seen by primary care, from what I understand. She has been on Zoloft at 25 mg daily for awhile, as far as I can tell. MEDICAL HISTORY: 1. Diabetes mellitus. 2. Hypertension. 3. Obesity. She has been seen here by Dr. De Jesus on the inpatient unit, and his help is most appreciated. There are concerns regarding her medical stability, and after my assessment, I was made aware that the patient is now being transferred, essentially discharged from the unit, being transferred to the COVID unit. She requires medical stabilization. SUBSTANCE ABUSE HISTORY: None significantly. MENTAL STATUS EXAMINATION: She is lying in bed, cooperative. Wears a mask. She is coherent. No agitation. No psychomotor retardation but suggests she feels uncomfortable. She has a restricted affect but reactive. Describes her mood as "so-so." She denies any thoughts of harming herself or any plans to do so at present. There is no evidence of any psychosis. Does not appear internally preoccupied, from what I can tell. She is alert, though appears a bit tired. She is oriented to place and person, not fully to time. She thought it was the middle of July 2020. Her Judgment fair. Insight is fair at present. ASSESSMENT: 1. Other specified depressive disorder. 2. Rule out major depressive disorder. The differential diagnosis would tend to include adjustment disorder with depressed mood. PLAN: She has been admitted to the inpatient psychiatry unit but is being discharged back to the medical floor, as there are medical concerns regarding her condition. Initial plans to increase the sertraline, and I would suggest that that is done, to 50 mg daily. At present is not acutely suicidal. Given the above concerns, does not require a sitter or an equivalent at present on the medical floor. Medical care at present supersedes other concerns. At this point, she does not require returning to the inpatient psychiatry unit unless there are fresh concerns when she is fully medically stabilized. She should be referred for outpatient care to see a therapist, counselor, when she is discharged after being medically stabilized. The assessment took 30 minutes. As mentioned previously, this note is to serve as the admission and discharge summary.
[2020-07-16] MEDS ORDERED: OMEPRAZOLE 20 MG CAP PO SCH (21:00)
[2020-07-16] MEDS ORDERED: traZODone 50 MG TAB PO SCH (21:00)
[2020-07-16] MEDS ORDERED: SERTRALINE HCL 50 MG TAB PO SCH ×2 (21:00)
[2020-07-16] MEDS ORDERED: ATORVASTATIN 20 MG TAB PO SCH (21:00)
[2020-07-17] MEDS ORDERED: bisoproloL fumarate 5 MG TAB PO SCH (09:00)
== END 2020-07-16 18:32 | disposition short-term general hospital (02) | DRG 885 ==
LOC: M PSY 14:01
PROVIDERS: ADMIT Psychiatry & Neurology Psychiatry; ATTEND Psychiatry & Neurology Psychiatry
DX: F32.89 Other specified depressive episodes (principal); U07.1 COVID-19; F43.21 Adjustment disorder with depressed mood; E11.649 Type 2 diabetes mellitus with hypoglycemia without coma; E78.5 Hyperlipidemia, unspecified; I10 Essential (primary) hypertension; R19.7 Diarrhea, unspecified; K76.0 Fatty (change of) liver, not elsewhere classified; E66.9 Obesity, unspecified; Z68.31 Body mass index [BMI] 31.0-31.9, adult; Z79.899 Other long term (current) drug therapy; Z79.4 Long term (current) use of insulin

== ENCOUNTER 2020-07-16 17:11 | Inpatient (IN) | payer MEDICARE ==
[~2020-07-16] VITALS: Ht 172.7 cm; Wt 92.6 kg
[~2020-07-16 17:11] MED LIST changes: +HYDR-3490 PO; -HYDR25TAB PO
[2020-07-16] MEDS ORDERED: GLUCAGON INJ 1MG VIAL SC PRN (17:15)
[2020-07-16] MEDS ORDERED: DEXTROSE 50% 50 ML SYRINGE IV PRN (17:15)
[2020-07-16] MEDS ORDERED: GLUCOSE 4GM CHEW TABLET PO PRN (17:15)
[2020-07-16] MEDS: HumaLOG INSULIN (NovoLOG) PER UNIT SC SCH ×2 (18:30→20:29)
--- OUTSIDE RECORDS SUMMARY | 2020-07-16 18:39 | CCD ---
Author Author [facility] Organization [facility] Address Unknown Phone Unavailable Care Team Providers Care Material Expeditor Name Role Phone Barraclough, Michelle PA Unavailable [...] Fish, J Elvis Unavailable Unavailable Fish, J Levis Unavailable Unavailable Fish, J Elvis Unavailable Unavailable [...] Fish, J Elvis Unavailable Unavailable Amelia SMITH SUPERVISOR [employer] Unavailable Unavailable Amelia SMITH SUPERVISOR [employer] Unavailable Unavailable Amelia SMITH SUPERVISOR [employer] Unavailable Unavailable Amelia SMITH SUPERVISOR [employer]ITTING [employer] SHIPPING Unavailable Unavailable Amelia SMITH SUPERVISOR [employer]IPPING Unavailable Unavailable Amelia SMITH SUPERVISOR [employer]IPPING Unavailable Unavailable Amelia SMITH SUPERVISOR [employer] Unavailable Unavailable SMITH, M ZOE SUPERVISOR [employer] Unavailable Unavailable SMITH, M ZOE SUPERVISOR [employer] Unavailable Unavailable SMITH, M ZOE SUPERVISOR [employer] Unavailable Unavailable SMITH, M ZOE SUPERVISOR [employer] Unavailable Unavailable SMITH, M ZOE SUPERVISOR [employer]PING Unavailable Unavailable SMITH, M ZOE SUPERVISOR [employer] Unavailable Unavailable SMITH, M ZOE SUPERVISOR [employer]PING Unavailable Unavailable SMITH, M ZOE SUPERVISOR [employer] Unavailable Unavailable SMITH, M ZOE SUPERVISOR [employer]PING Unavailable Unavailable SMITH, M ZOE SUPERVISOR [employer]IPPING Unavailable Unavailable SMITH, M ZOE SUPERVISOR [employer]PING Unavailable Unavailable SMITH, M ZOE SUPERVISOR [employer] Unavailable Unavailable SMITH, M ZOE SUPERVISOR [employer]PING Unavailable Unavailable SMITH, M ZOE SUPERVISOR [employer] Unavailable Unavailable SMITH, M ZOE SUPERVISOR [employer]IPPING Unavailable Unavailable SMITH, M ZOE SUPERVISOR [employer]IPPING Unavailable Unavailable SMITH, M ZOE SUPERVISOR [employer]ITT[employer] SHIPPING Unavailable Unavailable SMITH, M ZOE SUPERVISOR [employer]IPPING Unavailable Unavailable SMITH, M ZOE SUPERVISOR [employer]ITT[employer]IPPING Unavailable Unavailable SMITH, M ZOE SUPERVISOR [employer]PING Unavailable Unavailable SMITH, M ZOE SUPERVISOR [employer]IPPING Unavailable Unavailable SMITH, M ZOE SUPERVISOR [employer]ITT[employer]IPPING Unavailable Unavailable SMITH, M ZOE SUPERVISOR [employer]IPPING Unavailable Unavailable SMITH, M ZOE SUPERVISOR [employer]ITT[employer] SHIPPING Unavailable Unavailable SMITH, M ZOE SUPERVISOR [employer]ITT[employer]IPPING Unavailable Unavailable SMITH, M ZOE SUPERVISOR [employer]ITT[employer] SHIPPING Unavailable Unavailable SMITH, M ZOE SUPERVISOR [employer]ITT[employer] SHIPPING Unavailable Unavailable SMITH, M ZOE SUPERVISOR [employer]ITT[employer] SHIPPING Unavailable Unavailable SMITH, M ZOE SUPERVISOR [employer]ITTING [employer] SHIPPING Unavailable Unavailable SMITH, M ZOE SUPERVISOR [employer]ITT[employer] SHIPPING Unavailable Unavailable SMITH, M ZOE SUPERVISOR [employer]ITT[employer] SHIPPING Unavailable Unavailable SMITH, M ZOE SUPERVISOR [employer]ITT[employer] SHIPPING Unavailable Unavailable SMITH, M ZOE SUPERVISOR [employer]ITT[employer] SHIPPING Unavailable Unavailable SMITH, M ZOE SUPERVISOR [employer]ITTING [employer] SHIPPING Unavailable Unavailable SMITH, M ZOE SUPERVISOR [employer]ITT[employer] SHIPPING Unavailable Unavailable SMITH, M ZOE SUPERVISOR [employer]ITTING [employer] SHIPPING Unavailable Unavailable SMITH, M ZOE SUPERVISOR [employer]ITT[employer] SHIPPING Unavailable Unavailable SMITH, M ZOE SUPERVISOR [employer]ITT[employer] SHIPPING Unavailable Unavailable SMITH, M ZOE SUPERVISOR [employer]ITT[employer] SHIPPING Unavailable Unavailable SMITH, M ZOE SUPERVISOR [employer]ITTING [employer] SHIPPING Unavailable Unavailable SMITH, M ZOE SUPERVISOR [employer]ITTING [employer] SHIPPING Unavailable Unavailable SMITH, M ZOE SUPERVISOR [employer]ITT[employer] SHIPPING Unavailable Unavailable SMITH, M ZOE SUPERVISOR [employer]ITT[employer] SHIPPING Unavailable Unavailable SMITH, M ZOE SUPERVISOR [employer]ITT[employer] SHIPPING Unavailable Unavailable SMITH, M ZOE SUPERVISOR [employer]ITT[employer]IPPING Unavailable Unavailable SMIHT, M ZOE SUPERVISOR [employer]ITTING [employer] SHIPPING Unavailable Unavailable SMITH, M ZOE SUPERVISOR [employer]ITT[employer]IPPING Unavailable Unavailable SMITH, M ZOE SUPERVISOR [employer]ITTING [employer] SHIPPING Unavailable Unavailable SMITH, M ZOE SUPERVISOR [employer]ITT[employer]IPPING Unavailable Unavailable SMITH, M ZOE SUPERVISOR [employer]ITTING [employer] SHIPPING Unavailable Unavailable SMITH, M ZOE SUPERVISOR [employer]ITT[employer]IPPING Unavailable Unavailable HOLLINGSWORTH, C ALEXANDRU Unavailable Unavailable [...] is protected by Article 27-F of the [facility] Public Health law. If you continue you may have access to information: Regarding HIV / AIDS; Provided by facilities licensed or operated by the [facility] Office of Mental Health; or Provided by the [facility] Office for People With Developmental Disabilities. If such information is present, then the following [facility] mandated warning applies: This information has [...] law may result in a fine or residential sentence or both. A general authorization for the release of medical or other information is NOT sufficient authorization for further disc losure. Allergies and Adverse Reactions Type Description Substance Reaction Status Data Source(s ) No Known Allergies No Known Allergies [facility] Encounters Encounter Providers Location Date Indications Data Source(s ) Outpatient Attender: ELLA BELLAMYAttender: ALEXANDRU Bernal ant: Elvis Fish 07/08/2020 05:26:00 PM EST - 07/09/2020 02:50:00 PM [facility] Patient discharged. Outpatient Attender: Elvis FishReferrer: Elvis KevinConsultant: Elvis Fish 06/18/2020 12:20:00 PM EST - 06/18/2020 12:30:00 PM [facility] Outpatient Attender: Elvis Brown [facility] 06/18/2020 08:00:0 0 AM EST [facility] Outpatient Attender: ZOE SMITH NP [facility] 04/23 03:15:00 PM EST [facility] Outpatient Attender: Elvisflores Brown [facility] 03/18/2020 09:20:0 0 AM EDT [facility] ([facility] Outpatient Attender: Elvis FishReferrer: Elvisflores BrownConsultant: Elvis Fish 03/11/2020 11:59:00 AM EDT - 03/11/2020 12:09:00 PM EDT [facility] Outpatient Attender: Elvis Brown [facility] 01/30/2020 09:15:0 0 AM EDT [facility] ([facility] Outpatient Attender: Michelle DESIR [facility] 12/28/2019 09:30:00 AM EDT [facility] Outpatient Attender: Elvis BrownReferrer: Elvisflores BrownConsultant: Elvis Fish 12/17/2019 05:15:00 PM EDT - 12/17/2019 05:25:00 PM EDT [facility] Outpatient Attender: Elvis Brown [facility] 12/17/2019 10:30:0 0 AM EDT [facility] Outpatient Attender: Elvis BrownReferrer: Elvis BrownConsultant: Elvis Brown 09/17/2019 04:56:00 PM EDT - 09/17/2019 05:06:00 PM EDT [facility] Outpatient Attender: Elvis Brown [facility] 09/17/2019 01:00:0 0 PM EDT [facility] ([facility] Outpatient Attender: Michelle Bee [facility] 08/16/2019 08:00:00 AM EST [facility] ([facility] Outpatient Attender: Michelle DESIR [facility] 08/02/2019 12:30:00 PM EST [facility] ([facility] Outpatient Attender: Elvis BrownReferrer: Elvis BrownConsultant: Elvis Brown 06/20/2019 01:21:00 PM EST - 06/20/2019 01:31:00 PM EST [facility] Outpatient Attender: Elvis Brown [facility] 06/20/2019 07:45:0 0 AM EST [facility] [...] AM EDT ORAL active [facility] ([facility] cefdinir 300 MG Oral Capsule Cefdinir 04/19/2019 12:00:00 AM EST ORAL completed [facility] Clindamycin 150 MG Oral Capsule Clindamycin HCL 04/09/2019 12:00:00 A M EDT completed [facility] ([facility] Insurance Providers Payer name Policy type / Coverage type Policy ID Covered alliance party ID Covered alliance party's relationship to gregory Policy Gregory Plan Information [facility] [id number] SP [id number] UN MEDICARE COMPLETE - O/P [id number] 18 [id number] SECURE HORIZONS UN MEDICARE O/P [id number] 18 [id number] [facility] [id number] S [id number] [facility] [id number] SP [id number] SECURE HORIZONS/UNHC MEDICARE-O/P [id number] 18 [id number] Problems, Conditions, and Diagnoses Code Display Name Description Problem Type Effective Dates Data Source(s) Z6833 Body mass index [BMI] 33.0-33.9, adult B mary beth mass index [BMI] 33.0-33.9, adult Diagnosis 07/08/2020 05:26:00 PM [facility] E669 Obesity, unspecified Obesity, unspecified Diagnosis 07/08/2020 05:26:00 PM [facility] Z794 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 (current) use of insulin 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 (cu rrent) use of insulin Diagnosis 07/08/2020 05:26:00 PM [facility] E785 Hyperlipidemia, unspecified Hyperlipidemia, unspecifie d Diagnosis 07/08/2020 05:26:00 PM [facility] K219 Gastro-esophageal reflux disease without esophagitis Gastro-esophageal reflux disease without esophagitis Diagnosis 07/08/2020 05:26:00 PM ES T [facility] I10 Essential (primary) hypertension Essential (primary) h ypertension Diagnosis 07/08/2020 05:26:00 PM [facility] E119 Type 2 diabetes mellitus without complic ations Type 2 diabetes mellitus without complications Diagnosis 07/08/2020 05:26:00 PM [facility] I447 Left bundle-branch block, unspecified Le ft bundle-branch block, unspecified Diagnosis 07/08/2020 05:26:00 PM [facility] U071 COVID-19 COVID-19 Diagnosis 07/08/2020 05:26:00 PM ES T [facility] Results ID Date Data Source [id number] 07/14/2020 01:13:00 AM EST [facility] Name Value Range Interpretation Code Description Data Su rce(s) Supporting Document(s) SARS coronavirus 2 RNA [Presence] in Res piratory specimen by DELISA with probe detection POSITIVE [facility] This lab was ordered by [facility] a nd reported by [facility]. ID Date Data Source [id number] 07/10/2020 06:04:00 [place] [address] RESPIRATORY CARE REPORT ==== ---------NAME------- NUMBER SEX AGE ADMIT DISC. XRAY# F/C ANGELO Jimenez [id number] F 74 07/08/20 07/09/20 [id number] PALOMO O/P DATE OF : 1945 M/R# [id number] PH#: [phone] CCU1C LOCATION: EMERGENCY DEPT EKG 10239 COMP LETE:07/09/20 01:52 [place] 41879 PHYSICIAN: JOSESITO Fitzgerald Name Value Range Interpretation Code Description Data Su rce(s) Supporting Document(s) ID Date Data Source [id number] 07/09/2020 09:48:00 [place] [address] PHONE: [phone] FAX: [phone] Name .................. : ROSALBA Jimenez Acct Number.................. : [id number] ROOM. ................. : CCU1C MR Number ................... : [id number] Stay type ............. : O/P Discharge Date......... ... : Admit Date ......... : 07/08/20 Admit Phys .................... : JOSESITO MAT Date of ....... : 1945 Family Phys ................... : KEVIN [employer] Phone .................. : [phone] Age ................................ : 74 Film# .................. .:[id number] Sex ................................. : F Unsigned transcriptions are preliminary reports and do not represent a medical or legal document CT THORAX W/O CONTRAST 78788 COMPLETE:07/08/20 20:16 3043 (REASON FOR CHEST: DYSPNEA [...] for: EMERGENCY DEPT via modem Copy for: [address] [place] [address] REC Page 1 of 1 Name Value Range Interpretation Code Description Data Su rce(s) Supporting Document(s) ID Date Data Source [id number] 07/09/2020 09:48:00 AM EST [facility] [address] [place] [address] PHONE: [phone] FAX: [phone] Name .................. : ROSALBA Jimenez Acct Number.................. : [id number] [facility] ................. [facility] Number ................... : [id number] Stay type ............. : O/P Discharge Date......... ... : Admit Date ......... : 07/08/20 Admit Phys .................... : JOSESITO MAT Date of ....... : 1945 Family Phys ................... : KEVIN PLEITEZ Phone ..... ............. : [phone] Age ................................ : 74 Film# .................. .:[id number] Sex ................................. : F Unsigned t ranscriptions are preliminary reports and do not represent a medical or legal document CHEST PORTABLE 00414 COMPLETE:07/08/20 18:48 JOSE 3040 Reason(s): Congestion PORTABLE CHEST X-RAY: INDICATION: Congestion. FINDINGS: The lungs are moderately expanded without focal air space disease, pleural disease or pneumothorax. The cardiac silhouette is normal in size and contour. No acute osseous abnormality. IMPRESSION: No acute pulmonary process. Electronically Reviewed and Signed By Gerardo Coker M.D. , 07/09/20 09:48, [facility] Transcribe Initials: DZ , Transcribe Date: 07/08/20 20:47, Dictation Date: Copy for: KEVIN PUCKETT via fax Copy for: EMERGENCY DEPT via modem Copy for: [address] [place] [address] REC Page 1 of 1 Name Value Range Interpretation Code Description Data Su rce(s) Supporting Document(s) ID Date Data Source [id number] 07/10/2020 06:20:00 AM [facility] Name Value Range Interpretation Code Description Data Su rce(s) Supporting Document(s) Creatine kinase.MB [Mass/volume] in Serum or Plasma 5.3 ng/mL 0.0-5. 3 [facility] ID Date Data Source [id number] 07/09/2020 08:58:00 AM [facility] Name Value Range Interpretation Code Description Data Su rce(s) Supporting Document(s) COMPREHENSIVE METABOLIC PANEL [facility] COMPREHENSIVE METABOLIC PANEL Sodium [Moles/volume] in Serum or Plasma 141 mEq/L 134 - 153 [facility] Potassium [Moles/volume] in Serum or Plasma 3.8 mEq/L 3.6 - 5.0 [facility] Chloride [Moles/volume] in Serum or Plasma 105 mEq/L 98 - 107 [facility] Carbon dioxide, total [Moles/volume] in Serum or Plasma 24 MEQ/L 22 - 30 [facility] Glucose [Mass/volume] in Serum or Plasma 87 MG/DL 70 - 99 [facility] BUN 24 MG/DL 7 - [facility] Creatinine [Mass/volume] in Serum or Plasma 1.0 MG/DL 0.7 - 1.5 [facility] BUN/CREAT 24 8 - 27 [facility] al Protein [Mass/volume] in Serum or Plasma 6.1 G/DL 6.3 - 8.2 L [facility] Albumin [Mass/volume] in Serum or Plasma 3.7 G/DL 3.9 - 5.0 L [facility] Globulin [Mass/volume] in Serum by calculation 2.4 GM/DL 2.4 - 3.2 [facility] A/G RATIO 1.5 0.8 - 2.0 [facility] Calcium [Mass/volume] in Serum or Plasma 8.5 MG/DL 8.4 - 10.2 [facility] Bilirubin.total [Mass/volume] in Serum or Plasma <0.7 MG/DL 0.2 - 1.3 [facility] Alkaline phosphatase [Enzymatic activity/volume] in Serum or Plasma 64 U/L 38 - 126 [facility] Aspartate aminotransferase [Enzymatic activity/volume] in Serum or Plasma 22 U/L 5 - 40 [facility] Alanine aminotransferase [Enzymatic activity/volume] in Seru m or Plasma 20 U/L 7 - 56 [facility] Anion gap 3 in Serum or Plasma 12.0 mmol/L 8.0 - 16.0 [facility] AGE 74 yrs [facility] NON-AA GFR 57 mL/min [facility] A[facility] AMER GFR >60 [facility] Male GFR In [...] >32 mL/min Normal ID Date Data Source [id number] 07/09/2020 08:51:00 AM EST [facility] Name Value Range Interpretation Code Description Data Su rce(s) Supporting Document(s) TROPONIN T <0.01 NG/ML 0.00 - 0.10 [facility] ospital TROPONIN T0.1 ng/ml Recommended as the c linical threshold value forTroponin T. ID Date Data Source [id number] 07/09/2020 08:49:00 AM [facility] Name Value Range Interpretation Code Description Data Su rce(s) Supporting Document(s) Magnesium [Mass/volume] in Serum or Plasma 2.0 MG/DL 1.7 - 2.2 [facility] ID Date Data Source [id number] 07/09/2020 08:49:00 AM EST [facility] Name Value Range Interpretation Code Description Data Su rce(s) Supporting Document(s) Phosphate [Mass/volume] in Serum or Plasma 3.8 MG/DL 2.5 - 4.5 [facility] ID Date Data Source [id number] 07/09/2020 08:03:00 AM [facility] Name Value Range Interpretation Code Description Data Su rce(s) Supporting Document(s) CBC W/AUTOMATED DIFF [facility] COMPLETE BLOOD COUNT Leukocytes [#/volume] in Blood by Automated count 6.1 10^3/uL 4.2 - 1 1.0 [facility] Erythrocytes [#/volume] in Blood by Automated count 4.46 10^6/uL 4. 20 - 5.40 [facility] Hemoglobin [Mass/volume] in Blood 13.6 g/dL 12.0 - 16.0 [facility] Hematocrit [Volume Fraction] of Blood by Automated count 40.8 % 3 7.0 - 47.0 [facility] Erythrocyte mean corpuscular volume [Entitic volume] by Auto mated count 91.5 fL 81.0 - 101 [facility] Erythrocyte mean corpuscular hemoglobin [Entitic mass] by Automated count 30.5 pg 27.0 - 34.0 [facility] Erythrocyte mean corpuscular hemoglobin concentration [Mass/volume] by Automated count 33.3 g/dL 31.0 - 36.0 [facility] Erythrocyte distribution width [Ratio] by Automated count 13.4 % 11.5 - 14.5 [facility] Platelets [#/volume] in Blood by Automated count 167 10^3/uL 150 - 45 0 [facility] Platelet mean volume [Entitic volume] in Blood by Automated count 11.1 fL 7.4 - 10.4 H [facility] Neutrophils/100 leukocytes in Blood by Automated count 67.1 % 37. 0 - 80.0 [facility] Lymphocytes/100 leukocytes in Blood by Manual count 18.1 % 25.0 - 40.0 L [facility] Monocytes/100 leukocytes in Blood by Automated count 13.7 % 3.0 - 8.0 H [facility] Eosinophils/100 leukocytes in Blood by Automated count 0.2 % 0.0 - 7.0 [facility] Basophils/100 leukocytes in Blood by Automated count 0.7 % 0.0 - 2.5 [facility] %IG 0.2 % 0.0 - 0.0 H [facility] Hospit al %NRBC 0.0 % 0.0 - 0.0 [facility] al Neutrophils [#/volume] in Blood by Automated count 4.08 10^3/uL 2.00 - 6.90 [facility] Lymphocytes [#/volume] in Blood by Automated count 1.10 10^3/uL 0.60 - 3.40 [facility] Monocytes [#/volume] in Blood by Automated count 0.83 10^3/uL 0.00 - 0.90 [facility] Eosinophils [#/volume] in Blood by Automated count 0.01 10^3/uL 0.00 - 0.70 [facility] Basophils [#/volume] in Blood by Automated count 0.04 10^3/uL 0.00 - 0.20 [facility] #IG 0.01 10^3/uL 0.00 - 0.10 [facility] ospital #NRBC 0.00 10^3/uL 0.00 - 0.00 [facility] MANUAL DIFF NOT INDICATED [facility] RBC MORPH NOT INDICATED [facility] spital ID Date Data Source [id number] 07/08/2020 05:26:00 PM EST [facility] 1 OrderSheet [facility] Emergency Department [address] [place] [address] Phone #: ext- [phone] 07/08/2020 17:26 [id number] Sex[facility] F : 1945 Age: 74yWEIGHT:101.1 kg [...] 07/08/2020 17:52 Malcolm(Symptomatic as Alexandru Hollingsworth ; Mnaan RNDefined by CDC)(06/26/2020) (FirstTest) (NotHospitalized) (Not) (NotResident inCongregate CareSetting) (NotEmployed inHealthcare Setting)Influenza Nasal A B STAT 18:59 07/08/2020 19:04 Alexandru Adler ; Manan LEVINEDIAGNOSTIC STUDY ORDERSOrder Description Priority Entered Acknowledged InitialedChest Portable 1 STAT 17:51 07/08/2020 17:52 Alexandru Christensen ; Manan RN 2 OrderSheet [facility] Emergency Department [address] [place] [address] Phone #: ext- [phone] 07/08/2020 17:26 Patient: SID NAVARRETE Sex: F : 1945 Age: 74y(Oxygen?(No)) Reason for Study: CongestionMEDICATION/IV/DRIP/FLUID ORDERSOrder Description Priority Entered Acknowledged InitialedAcetaminophen PO 17:51 07/08/2020 18:04 Zbigx753 mg (NOW x1) Alexandru Hollingsworth ; Manan RNZithromax IVPB 500 18:58 07/08/2020 19:16 Petermg X1 Dose: 500 Alexandru Hollingsworth ; Manan RNmg with DextroseIntravenous 250 mL(NOW x1)GENERAL ORDERSOrder Description Priority Entered Acknowledged InitialedEKG 17:51 07/08/2020 17:51 Beth Alexandru Hollingsworth ; crown assembly machine operatorJuan Rao [id number] - 19:05 07/08/2020 19:15 MalcolmHospitalist Alexandru Hollingsworth ; Manan RN[Electronically signed by Malcolm Hinkle RN (20:55 07/08/2020)][Electronically signed by Alexandru Hollingsworth (23:52 07/08/2020)][Electronically locked by Malcolm Hinkle RN (20:55 07/08/2020)] Name Value Range Interpretation Code Description Data Su rce(s) Supporting Document(s) ID Date Data Source [id number] 07/08/2020 05:26:00 PM EST [facility] 1 Medication Reconciliation Report [facility] Emergency Department [address] [place] [address] Phone #: ext- [phone] 07/08/2020 17:26 Patient: [...] to the patient:None. 2 Medication Reconciliation Report [facility] Emergency Department [address] [place] [address] Phone #: ext- [phone] 07/08/2020 17:26 Patient: SID NAVARRETE Sex: F : 1945 Age: 74y Name Value Range Interpretation Code Description Data Su rce(s) Supporting Document(s) ID Date Data Source [id number] 07/08/2020 05:26:00 PM EST [facility] 1 Medication Administration Record [facility] Emergency Department [address] [place] [address] Phone #: ext- [phone] 07/08/2020 17:26 Patient: [...] rce(s) Supporting Document(s) ID Date Data Source [id number] 07/08/2020 05:26:00 PM [facility] 1 General Instructions [facility] Emergency Department [address] [place] [address] Phone #: ext- [phone] 07/08/2020 17:26 Patient: SID NAVARRETE Sex: F : 1945 Age: 74yCoronavirus COVID-19 with pneumonia.Acute ischemic cardiomyopathy.(Electronically signed by Alexandru Hollingsworth 07/08/2020 23:52) Name Value Range Interpretation Code Description Data Su rce(s) Supporting Document(s) ID Date Data Source [id number] 07/08/2020 05:26:00 PM [facility] 1 Clinical Report - Nurses [facility] Emergency Department [address] [place] [address] Phone #: ext- [phone] 07/08/2020 17:26 Patient: SID NAVARRETE Sex: F : 1945 Age: 74yTRIAGEArrived by EMS. Historian: patient. Unaccompanied.Acuity: LEVEL 3.Chief Complaint: MUSCLE ACHES (cough shaky).Alert.Onset. (several days). She has had a cough. She has had difficulty breathing (with activity).Treatment [employer]ERS AND ACQUISITION[employer] ASSOCIATE:Took Tylenol.SEPSIS SCREEN: SIRS SCREEN NEGATIVE. SEPSIS SCREEN [...] R.N.PROBLEMS:Hypertension.Hypercholesterolemia.Diabetes Mellitus. 2 Clinical Report - Nurses [facility] Emergency Department [address] [place] [address] Phone #: ext- [phone] 07/08/2020 17:26 Patient: SID NAVARRETE Sex: F : 1945 Age: 74yArthritis.GERD. --17:32 07/08/20 Madai Tripp R.N.ADDITIONAL SURGERIES:Hysterectomy. --17:32 07/08/20 Maadi Tripp R.N.HistoryPAST MEDICAL HX: Immunizations: up-to-date. The [...] Alexandru Hollingsworth.Interventions 3 Clinical Report - Nurses [facility] Emergency Department [address] [place] [address] Phone #: ext- [phone] 07/08/2020 17:26 Patient: SID NAVARRETE Sex: F [...] an 20gangiocath. --17:37 07/08/20 Madai Tripp R.N. night monitor and NIBP monitor placed on patient; monitor alarms on. Patient gowned. Reassurance given. Two patient identifiers checked. Call light placed in reach. Side rails up x 2. Bed placed in lowest position. Brakes of bed on. Patient ready for evaluation. --17:37 07/08/20 Madai Tripp R.N. EKG time: (17:31 07/08/2020). EKG was performed by a tech and shown to the ED physician. --17:42 07/08/20 [place] [employer] machine operatorJuan ER Tech1 Patient ID band checked [...] Hinkle RN 4 Clinical Report - Nurses [facility] Emergency Department [address] [place] [address] Phone #: ext- [phone] 07/08/2020 17:26 Patient: SID NAVARRETE Sex: F [...] Hinkle RN 5 Clinical Report - Nurses [facility] Emergency Department [address] [place] [address] Phone #: ext- [phone] 07/08/2020 17:26 Patient: SID NAVARRETE Sex: F : 1945 Age: 74y Name Value Range Interpretation Code Description Data Su rce(s) Supporting Document(s) ID Date Data Source [id number] 07/08/2020 05:26:00 PM [facility] 1 Clinical Report - Physicians/Mid [facility] Emergency Department [address] [place] [address] Phone #: ext- [phone] 07/08/2020 17:26 Patient: SID NAVARRETE Sex: F [...] a day. 2 Clinical Report - Physicians/Mid [facility] Emergency Department [address] [place] [address] Phone #: ext- [phone] 07/08/2020 17:26 [id number] Sex: F : 1945 Age: 74y Atorvastatin [...] NEGATIVE (NORMAL: NEGAT 3 Clinical Report - Physicians/[facility] Emergency Department [address] [place] [address] Phone #: ext- [phone] 07/08/2020 17:26 Patient: SID NAVARRETE Sex: F : 1945 Age: 74y INFLUENZA B NEGATIVE (NORMAL: NEGAT INFLUENZA A REENTER NEGATIVE (NORMAL: NEGAT INFLUENZA B REENTER NEGATIVE (NORMAL: NEGAT PROCEDURAL CONTROL VALID KIT LOT # _[id number] 07/08/20.DW . KIT EXP DATE _83-50-37 14/26/21.DW .The Influenza A utilizing an isothermal nucleic [...] # _[id number] 07/08/20.1825.DW . KIT EXP DATE _61-37-01 77/26/21.1826.DW . NORMAL RANGE IS NOT DETECTEDNEGATIVE RESULTS SHOULD BE TREATEDAS PRESUMPTIVE AND, IF INCONSISTENT WITHCLINICAL SIGNS AND SYMPTOMS OR NECESSARY FOR PATIENT MANAGEMENT, SHOULDBETESTED WITH DIFFERENT AUTHORIZED OR CLEARED MOLECULAR TESTS. NEGATIVE RESULTSDO NOT PRECLUDE [id number] AND SHOULD NOT BE USED THE SOLE [...] Male GFR Interprentation 20-49 yrs >60 mL/min Egeanf27-09 yrs >56 mL/min Normal 60-69 yrs >49 mL/min Normal 70-79yrs>42 mL/min Normal 80 and above >35 mL/min Normal Female GFRInterpretation 20-39 yrs >60 mL/min Normal 40-49 yrs >58 mL/minNormal 50-59 yrs >51 mL/min Normal 60-69 yrs >45 mL/min Ggygtx17-13 yrs >39 mL/min Normal 80 and above [...] 34.0) 4 Clinical Report - Physicians/Mid Levels [facility] Emergency Department [address] [place] [address] Phone #: ext- [phone] 07/08/2020 17:26 Patient: [...] NOT INDICATED BNP: (JESUS: 07/08/2020 17:40) ( [facility] [place]/08[place] 18:38) Final results Test Result Flag Units (Reference) BNP 120 PG/ML (0 - 125) Troponin-T: (JESUS: 07/08/2020 17:40) ( [facility] 07/08/2020 18:31) Final results Test Result Flag Units (Reference) TROPONIN T <0.01 NG/ML (0.00 - 0.10) TROPONIN T0.1 ng/ml Recommended as the clinical threshold value forTroponin T. TSH: (JESUS: 07/08/2020 17:40) ( [facility] 07/08/2020 18:38) Final results Test Result Flag Units (Reference) TSH 0.77 uIU/mL (0.47 - 5.01) Lactic Acid: (JESUS: 07/08/2020 17:40) ( [facility] 07/08/2020 18:05) Final results Test Result Flag Units (Reference) LACTIC ACID 1.7 MMOL/L (0.2 - 2.2) Chest Portable 1 View: (JESUS: 07/08/2020 17:51) ( [employer] 07/08/2020 18:49) In Progress CHEST PORTABLE Reason(s): [...] ordered. 5 Clinical Report - Physicians/Mid Levels [facility] Emergency Department [address] [place] [address] Phone #: ext- [phone] 07/08/2020 17:26 Patient: [...] rce(s) Supporting Document(s) ID Date Data Source [id number] 07/08/2020 05:26:00 PM [facility] Addenda for SID NAVARRETE VisitID: [id number] Date: 19:45Medication reconciliation request faxed to [employer]; Overview faxed to [facility](Electronically signed by Jesse Hinkle - 07/08/2020 19:45) Name Value Range Interpretation Code Description Data Su rce(s) Supporting Document(s) ID Date Data Source [id number] 07/10/2020 06:21:00 AM [facility] Name Value Range Interpretation Code Description Data Su rce(s) Supporting Document(s) Creatine kinase.MB [Mass/volume] in Serum or Plasma 4.8 ng/mL 0.0-5. 3 [facility] ID Date Data Source [id number] 07/09/2020 12:10:00 AM [facility] Name Value Range Interpretation Code Description Data Su rce(s) Supporting Document(s) TROPONIN T <0.01 NG/ML 0.00 - 0.10 [facility] ospital TROPONIN T0.1 ng/ml Recommended as the c linical threshold value forTroponin T. ID Date Data Source [id number] 07/08/2020 07:51:00 PM EST [facility] Name Value Range Interpretation Code Description Data Su rce(s) Supporting Document(s) Influenza virus A Ag [Presence] in Nasopharynx by Immuno[facility] y NEGATIVE NORMAL: NEGATIVE [facility] Influenza virus B Ag [Presence] in Nasopharynx by Immunoassa y NEGATIVE NORMAL: NEGATIVE [facility] NEGATIVENEGATIVE PROCEDURAL CO NTROL VALID KIT LOT # _[id number] 07/08/20.DW . KIT EXP DATE _94-45-53 07/08/20.DW .The Influenza A & B assay is a rapid molecular in vitro diagnostic testutilizing an isothermal nucleic acid amplification technology for thequalitative detection of influenza A and B viral RNA.Negative results do not preclude influenza virus infection and should not beused as the sole basis for diagnosis, treatment or other patient managementdecisions. ID Date Data Source [id number] 07/08/2020 05:48:00 PM EST [facility] Name Value Range Interpretation Code Description Data Su rce(s) Supporting Document(s) COVID19 Case rprt DETECTED [facility] This lab was ordered by [facility] ELIAN MORAN and reported by [facility]. ID Date Data Source [id number] 07/08/2020 06:26:00 PM EST [facility] DETECTEDDETECTED{ PROCEDURAL C ONTROL VALID KIT LOT # _[id number] 07/08/20.DW . KIT EXP DATE _96-94-00 07/08/20.DW . NORMAL RANGE IS NOT DETECTEDNEGATIVE [...] rce(s) Supporting Document(s) ID Date Data Source [id number] 07/10/2020 07:56:00 AM [facility] Name Value Range Interpretation Code Description Data Su rce(s) Supporting Document(s) C reactive protein [Mass/volume] in Serum or Plasma by High sensitivity method 46.25 MG/L 1.00 - 3.00 [facility] HS-CRP CUT-OFF: RELATIVE RISK: <1.0 mg/L Low 1.0 - 3.0 mg/L Average >3.0 mg/L High Optimally, the average of HS-CRP results repeated two weeks apart should be used for risk assessment. ID Date Data Source [id number] 07/10/2020 06:20:00 AM [facility] Name Value Range Interpretation Code Description Data Su rce(s) Supporting Document(s) Creatine kinase.MB [Mass/volume] in Serum or Plasma 3.7 ng/mL 0.0-5. 3 [facility] ID Date Data Source [id number] 07/08/2020 06:38:00 PM [facility] Name Value Range Interpretation Code Description Data Su rce(s) Supporting Document(s) Thyrotropin [Units/volume] in Serum or Plasma by Detec tion limit <= 0.05 mIU/L 0.77 uIU/mL 0.47 - 5.01 [facility] ID Date Data Source [id number] 07/08/2020 06:38:00 PM [facility] Name Value Range Interpretation Code Description Data Su rce(s) Supporting Document(s) BNP 120 PG/ML 0 - 125 [facility] Hospit al ID Date Data Source [id number] 07/08/2020 06:31:00 PM [facility] Name Value Range Interpretation Code Description Data Su rce(s) Supporting Document(s) TROPONIN T <0.01 NG/ML 0.00 - 0.10 [facility] ospital TROPONIN T0.1 ng/ml Recommended as the c linical threshold value forTroponin T. ID Date Data Source [id number] 07/08/2020 06:23:00 PM EST [facility] Name Value Range Interpretation Code Description Data Su rce(s) Supporting Document(s) BASIC METABOLIC PANEL [facility] BASIC METABOLIC PANEL Sodium [Moles/volume] in Serum or Plasma 135 mEq/L 134 - 153 [facility] Potassium [Moles/volume] in Serum or Plasma 3.9 mEq/L 3.6 - 5.0 [facility] Chloride [Moles/volume] in Serum or Plasma 101 mEq/L 98 - 107 [facility] Carbon dioxide, total [Moles/volume] in Serum or Plasma 21 MEQ/L 22 - 30 L [facility] Glucose [Mass/volume] in Serum or Plasma 261 MG/DL 70 - 99 H [facility] BUN 23 MG/DL 7 - 21 [facility] Creatinine [Mass/volume] in Serum or Plasma 1.0 MG/DL 0.7 - 1.5 [facility] BUN/CREAT 23 8 - 27 [facility] al Calcium [Mass/volume] in Serum or Plasma 8.3 MG/DL 8.4 - 10.2 L [facility] Anion gap 3 in Serum or Plasma 13.0 mmol/L 8.0 - 16.0 [facility] 74 [facility] AMER GFR >60 [facility] NON-AA GFR 57 mL/min [facility] Male GFR Inter prentation 20-49 yrs [...] >32 mL/min Normal ID Date Data Source [id number] 07/08/2020 06:06:00 PM EST [facility] Name Value Range Interpretation Code Description Data Su rce(s) Supporting Document(s) CBC W/AUTOMATED DIFF [facility] COMPLETE BLOOD COUNT Leukocytes [#/volume] in Blood by Automated count 9.9 10^3/uL 4.2 - 1 1.0 [facility] Erythrocytes [#/volume] in Blood by Automated count 4.61 10^6/uL 4. 20 - 5.40 [facility] Hemoglobin [Mass/volume] in Blood 14.0 g/dL 12.0 - 16.0 [facility] Hematocrit [Volume Fraction] of Blood by Automated count 42.0 % 3 7.0 - 47.0 [facility] Erythrocyte mean corpuscular volume [Entitic volume] by Auto mated count 91.1 fL 81.0 - 101 [facility] Erythrocyte mean corpuscular hemoglobin [Entitic mass] by Automated count 30.4 pg 27.0 - 34.0 [facility] Erythrocyte mean corpuscular hemoglobin concentration [Mass/volume] by Automated count 33.3 g/dL 31.0 - 36.0 [facility] Erythrocyte distribution width [Ratio] by Automated count 13.4 % 11.5 - 14.5 [facility] Platelets [#/volume] in Blood by Automated count 163 10^3/uL 150 - 45 0 [facility] Platelet mean volume [Entitic volume] in Blood by Automated count 11.0 fL 7.4 - 10.4 H [facility] Neutrophils/100 leukocytes in Blood by Automated count 81.8 % 37. 0 - 80.0 H [facility] Lymphocytes/100 leukocytes in Blood by Manual count 7.7 % 25.0 - 40.0 L [facility] Monocytes/100 leukocytes in Blood by Automated count 9.5 % 3.0 - 8.0 H [facility] Eosinophils/100 leukocytes in Blood by Automated count 0.3 % 0.0 - 7.0 [facility] Basophils/100 leukocytes in Blood by Automated count 0.4 % 0.0 - 2.5 [facility] %IG 0.3 % 0.0 - 0.0 [facility] %NRBC 0.0 % 0.0 - 0.0 [facility] al Neutrophils [#/volume] in Blood by Automated count 8.10 10^3/uL 2.00 - 6.90 H [facility] Lymphocytes [#/volume] in Blood by Automated count 0.76 10^3/uL 0.60 - 3.40 [facility] Monocytes [#/volume] in Blood by Automated count 0.94 10^3/uL 0.00 - 0.90 H [facility] Eosinophils [#/volume] in Blood by Automated count 0.03 10^3/uL 0.00 - 0.70 [facility] Basophils [#/volume] in Blood by Automated count 0.04 10^3/uL 0.00 - 0.20 [facility] #IG 0.03 10^3/uL 0.00 - 0.10 [facility] H ospital #NRBC 0.00 10^3/uL 0.00 - 0.00 [facility] osp[facility] MANUAL DIFF NOT INDICATED [facility] RBC MORPH NOT INDICATED [facility] spital ID Date Data Source [id number] 07/08/2020 06:05:00 PM EST [facility] Name Value Range Interpretation Code Description Data Su rce(s) Supporting Document(s) Lactate [Moles/volume] in Serum or Plasma 1.7 MMOL/L 0.2 - 2.2 [facility] ID Date Data Source [id number] 06/18/2020 09:45:00 AM EST [facility] Name Value Range Interpretation Code Description Data Su rce(s) Supporting Document(s) Alb 10 mg/L 1-30 [facility] A/C Ratio Laboratory test result [facility] ([facility] Creatinine, Urine 50 mg/dL 10-300 [facility] ID Date Data Source [id number] 06/18/2020 09:44:00 AM EST [facility] ([facility] Name Value Range Interpretation Code Description Data Su rce(s) Supporting Document(s) Color Laboratory test result [facility] ([facility] NORMAL RANGES [...] HCT IS 5% LESS SOURCE FOR DATA: [employer] 1800 OPERATION MANUAL( AUTOMATED BLOOD COUNTS AND [...] Abnormal (applies to non -numeric results) [facility] ([facility] NORMAL RANGES [...] 2-19 YEARS EXCLUSIVE. Bilirubin,Urine Laboratory test result [facility] ([facility] NORMAL RANGES [...] HCT IS 5% LESS SOURCE FOR DATA: [employer] 1800 OPERATION MANUAL( AUTOMATED BLOOD COUNTS AND [...] HCT IS 5% LESS SOURCE FOR DATA: [employer] 1800 OPERATION MANUAL( AUTOMATED BLOOD COUNTS AND [...] 2-19 YEARS EXCLUSIVE. Ketone Laboratory test result [facility] ([facility] NORMAL RANGES [...] HCT IS 5% LESS SOURCE FOR DATA: [employer] 1800 OPERATION MANUAL( AUTOMATED BLOOD COUNTS AND [...] 2-19 YEARS EXCLUSIVE. pH 5.5 # 5.0-8.0 [facility] ([facility] NORMAL [...] HCT IS 5% LESS SOURCE FOR DATA: [employer] 1800 OPERATION MANUAL( AUTOMATED BLOOD COUNTS AND [...] HCT IS 5% LESS SOURCE FOR DATA: [employer] 1800 OPERATION MANUAL( AUTOMATED BLOOD COUNTS AND [...] YEARS EXCLUSIVE. Urobilinogen 0.2 NA 0.2-1.0 [facility] ([facility] NORMAL RANGES Age [...] HCT IS 5% LESS SOURCE FOR DATA: [employer] 1800 OPERATION MANUAL( AUTOMATED BLOOD COUNTS [...] 2-19 YEARS EXCLUSIVE. Protein Laboratory test [facility] ([facility] NORMAL RANGES [...] HCT IS 5% LESS SOURCE FOR DATA: [employer] 1800 OPERATION MANUAL( AUTOMATED BLOOD COUNTS AND [...] HCT IS 5% LESS SOURCE FOR DATA: [employer] 1800 OPERATION MANUAL( AUTOMATED BLOOD COUNTS AND [...] 2-19 YEARS EXCLUSIVE. Leukocyte Laboratory test result [facility] ([facility] NORMAL RANGES [...] HCT IS 5% LESS SOURCE FOR DATA: [employer] 1800 OPERATION MANUAL( AUTOMATED BLOOD COUNTS [...] 2-19 YEARS EXCLUSIVE. ID Date Data Source [id number] 06/18/2020 09:44:00 AM EST [facility] ([facility] Name Value Range [...] HCT IS 5% LESS SOURCE FOR DATA: [employer] 1800 OPERATION MANUAL( AUTOMATED BLOOD COUNTS AND [...] 2-19 YEARS EXCLUSIVE. Chol 146 mg/dL 0-200 [facility] ([facility] NORMAL RANGES Age WBC RBC [...] HCT IS 5% LESS SOURCE FOR DATA: [employer] 1800 OPERATION MANUAL( AUTOMATED BLOOD COUNTS AND [...] 2-19 YEARS EXCLUSIVE. Cho/HDL Ratio 3.5 CALC [employer] ([facility] NORMAL RANGES Age WBC [...] HCT IS 5% LESS SOURCE FOR DATA: [employer] 1800 OPERATION MANUAL( AUTOMATED BLOOD COUNTS AND [...] HCT IS 5% LESS SOURCE FOR DATA: [employer] 1800 OPERATION MANUAL( AUTOMATED BLOOD COUNTS AND [...] Plasma 41 mg/dL 45-65 Below low normal [facility] ([facility] NORMAL RANGES [...] HCT IS 5% LESS SOURCE FOR DATA: [employer] 1800 OPERATION MANUAL( AUTOMATED BLOOD COUNTS AND [...] 2-19 YEARS EXCLUSIVE. ID Date Data Source [id number] 06/18/2020 09:44:00 AM EST [facility] ([facility] Name Value Range Interpretation Code Description Data Su rce(s) Supporting Document(s) Creatine kinase [Enzymatic activity/volume] in Serum or Plasma 121 U/L 26-192 [facility] ([facility] NORMAL RANGES [...] HCT IS 5% LESS SOURCE FOR DATA: [employer] 1800 OPERATION MANUAL( AUTOMATED BLOOD COUNTS AND [...] 2-19 YEARS EXCLUSIVE. ID Date Data Source [id number] 06/18/2020 09:44:00 AM EST [facility] ([facility] Name Value Range Interpretation Code Description Data Su rce(s) Supporting Document(s) BUN 26 mg/dL 8-23 Above high normal [facility] ([facility] NORMAL RANGES Age WBC RBC [...] HCT IS 5% LESS SOURCE FOR DATA: [employer] 1800 OPERATION MANUAL( AUTOMATED BLOOD COUNTS AND [...] HCT IS 5% LESS SOURCE FOR DATA: [employer] 1800 OPERATION MANUAL( AUTOMATED BLOOD COUNTS [...] HCT IS 5% LESS SOURCE FOR DATA: [employer] 1800 OPERATION MANUAL( AUTOMATED BLOOD COUNTS AND [...] 2-19 YEARS EXCLUSIVE. BUN/Creatinine Ratio 22.5 CALC [facility] ([facility] NORMAL RANGES Age WBC RBC [...] HCT IS 5% LESS SOURCE FOR DATA: [employer] 1800 OPERATION MANUAL( AUTOMATED BLOOD COUNTS AND [...] 2-19 YEARS EXCLUSIVE. K 4.3 mmol/L 3.5-5.1 [facility] ([facility] NORMAL RANGES [...] HCT IS 5% LESS SOURCE FOR DATA: [employer] 1800 OPERATION MANUAL( AUTOMATED BLOOD COUNTS AND [...] HCT IS 5% LESS SOURCE FOR DATA: [employer] 1800 OPERATION MANUAL( AUTOMATED BLOOD COUNTS AND [...] 2-19 YEARS EXCLUSIVE. Co2 24.6 mmol/L 22.0-29.0 [facility] ([facility] NORMAL RANGES Age WBC RBC [...] HCT IS 5% LESS SOURCE FOR DATA: [employer] 1800 OPERATION MANUAL( AUTOMATED BLOOD COUNTS AND [...] 2-19 YEARS EXCLUSIVE. CA 8.6 mg/dL 8.6-10.2 [facility] ([facility] NORMAL [...] HCT IS 5% LESS SOURCE FOR DATA: [employer] 1800 OPERATION MANUAL( AUTOMATED BLOOD COUNTS AND [...] HCT IS 5% LESS SOURCE FOR DATA: [employer] 1800 OPERATION MANUAL( AUTOMATED BLOOD COUNTS AND [...] HCT IS 5% LESS SOURCE FOR DATA: [employer] 1800 OPERATION MANUAL( AUTOMATED BLOOD COUNTS AND [...] 2-19 YEARS EXCLUSIVE. Alb 3.9 g/dL 3.4-4.8 [facility] ([facility] NORMAL [...] HCT IS 5% LESS SOURCE FOR DATA: [employer] 1800 OPERATION MANUAL( AUTOMATED BLOOD COUNTS AND [...] HCT IS 5% LESS SOURCE FOR DATA: [employer] 1800 OPERATION MANUAL( AUTOMATED BLOOD COUNTS AND [...] YEARS EXCLUSIVE. Alt (SGPT) 16 U/L 0-41 [facility] NORMAL RANGES Age WBC [...] 2-19 YEARS EXCLUSIVE. Alp 68.2 U/L 35-129 [facility] ([facility] NORMAL [...] HCT IS 5% LESS SOURCE FOR DATA: [employer] 1800 OPERATION MANUAL( AUTOMATED BLOOD COUNTS AND [...] HCT IS 5% LESS SOURCE FOR DATA: [employer] 1800 OPERATION MANUAL( AUTOMATED BLOOD COUNTS AND [...] 2-19 YEARS EXCLUSIVE. Tbili 0.39 mg/dL 0.0-1.2 [facility] ([facility] NORMAL RANGES Age WBC [...] HCT IS 5% LESS SOURCE FOR DATA: [employer] 1800 OPERATION MANUAL( AUTOMATED BLOOD COUNTS [...] HCT IS 5% LESS SOURCE FOR DATA: [employer] 1800 OPERATION MANUAL( AUTOMATED BLOOD COUNTS AND [...] YEARS EXCLUSIVE. Ast (Sgot) 16 U/L 0-40 [facility] ([facility] NORMAL [...] HCT IS 5% LESS SOURCE FOR DATA: [employer] 1800 OPERATION MANUAL( AUTOMATED BLOOD COUNTS AND [...] 2-19 YEARS EXCLUSIVE. Anion Gap 12 mmol/L [facility] ([facility] NORMAL [...] HCT IS 5% LESS SOURCE FOR DATA: [employer] 1800 OPERATION MANUAL( AUTOMATED BLOOD COUNTS AND [...] INDIVIDUALA AGED 2-19 YEARS EXCLUSIVE. eGFR Non-Afr. Angolan 44 # [facility] ([facility] [...] HCT IS 5% LESS SOURCE FOR DATA: [employer] 1800 OPERATION MANUAL( AUTOMATED BLOOD COUNTS AND [...] 2-19 YEARS EXCLUSIVE. ID Date Data Source [id number] 06/18/2020 09:44:00 AM EST [facility] ([facility] Name Value Range Interpretation Code Description Data Su rce(s) Supporting Document(s) WBC 7.6 10E3/uL 4.1-10.9 [facility] ([facility] NORMAL RANGES Age [...] HCT IS 5% LESS SOURCE FOR DATA: [employer] 1800 OPERATION MANUAL( AUTOMATED BLOOD COUNTS AND [...] HCT IS 5% LESS SOURCE FOR DATA: [employer] 1800 OPERATION MANUAL( AUTOMATED BLOOD COUNTS AND [...] 2-19 YEARS EXCLUSIVE. HCT 42.7 % 37.0-51.0 [facility] NORMAL RANGES Age WBC RBC [...] HCT IS 5% LESS SOURCE FOR DATA: [employer] 1800 OPERATION MANUAL( AUTOMATED BLOOD COUNTS AND [...] 2-19 YEARS EXCLUSIVE. RBC 4.60 10E6/uL 4.20-6.30 [facility] ([facility] NORMAL RANGES [...] HCT IS 5% LESS SOURCE FOR DATA: [employer] 1800 OPERATION MANUAL( AUTOMATED BLOOD COUNTS [...] HCT IS 5% LESS SOURCE FOR DATA: [employer] 1800 OPERATION MANUAL( AUTOMATED BLOOD COUNTS AND [...] 2-19 YEARS EXCLUSIVE. MCHC 32.8 g/dL 31.0-36.0 [facility] ([facility] NORMAL RANGES Age WBC RBC [...] HCT IS 5% LESS SOURCE FOR DATA: [employer] 1800 OPERATION MANUAL( AUTOMATED BLOOD COUNTS AND [...] 2-19 YEARS EXCLUSIVE. MCV 92.8 fL 80.0-97.0 [facility] ([facility] NORMAL [...] HCT IS 5% LESS SOURCE FOR DATA: [employer] 1800 OPERATION MANUAL( AUTOMATED BLOOD COUNTS AND [...] HCT IS 5% LESS SOURCE FOR DATA: [employer] 1800 OPERATION MANUAL( AUTOMATED BLOOD COUNTS AND [...] 2-19 YEARS EXCLUSIVE. RDW-CV 13.4 % 11.5-14.5 [facility] ([facility] NORMAL [...] 2-19 YEARS EXCLUSIVE. PLT 198 10E3/uL 140-440 [facility] ([facility] NORMAL RANGES Age [...] HCT IS 5% LESS SOURCE FOR DATA: [employer] 1800 OPERATION MANUAL( AUTOMATED BLOOD COUNTS AND [...] 2-19 YEARS EXCLUSIVE. Lym# 1.7 10E3/uL 0.6-4.1 [facility] ([facility] NORMAL RANGES Age [...] HCT IS 5% LESS SOURCE FOR DATA: [employer] 1800 OPERATION MANUAL( AUTOMATED BLOOD COUNTS AND [...] 2-19 YEARS EXCLUSIVE. MXD% 10.3 % 0.1-24.0 [facility] ([facility] NORMAL [...] HCT IS 5% LESS SOURCE FOR DATA: [employer] 1800 OPERATION MANUAL( AUTOMATED BLOOD COUNTS AND [...] HCT IS 5% LESS SOURCE FOR DATA: [employer] 1800 OPERATION MANUAL( AUTOMATED BLOOD COUNTS AND [...] EXCLUSIVE. MXD# 0.8 10E3/uL 0.0-1.8 [facility] ([facility] NORMAL RANGES Age WBC [...] HCT IS 5% LESS SOURCE FOR DATA: [employer] 1800 OPERATION MANUAL( AUTOMATED BLOOD COUNTS AND [...] 2-19 YEARS EXCLUSIVE. Neut# 5.1 % 2.0-7.8 [facility] ([facility] NORMAL [...] HCT IS 5% LESS SOURCE FOR DATA: [employer] 1800 OPERATION MANUAL( AUTOMATED BLOOD COUNTS AND [...] 2-19 YEARS EXCLUSIVE. MPV 11.2 fL 9.0-13.0 [facility] ([facility] NORMAL [...] HCT IS 5% LESS SOURCE FOR DATA: [employer]YN 1800 OPERATION MANUAL( AUTOMATED BLOOD COUNTS [...] 2-19 YEARS EXCLUSIVE. ID Date Data Source [id number] 06/18/2020 09:44:00 AM EST [facility] ([facility] Name Value Range Interpretation Code Description Data Su rce(s) Supporting Document(s) Hemoglobin A1c/Hemoglobin.total in Blood 8.8 % 4.4-6.1 Above high normal [facility] ([facility] {A1] {HB] ID Date Data Source [id number] 06/18/2020 02:23:00 PM [facility] Name Value Range Interpretation Code Description Data Su rce(s) Supporting Document(s) Hemoglobin A1c/Hemoglobin.total in Blood 8.8 % 4.4 - 6.1 H [facility] {A1]{HB] ID Date Data Source [id number] 03/11/2020 08:50:00 AM EDT [facility] ([facility] Name Value Range Interpretation Code Description Data Su rce(s) Supporting Document(s) Hemoglobin A1c/Hemoglobin.total in Blood 8.7 % 4.4-6.1 Above high normal [facility] ([facility] {A1] {HB] ID Date Data Source [id number] 03/11/2020 08:50:00 AM EDT [facility] ([facility] Name Value Range Interpretation Code Description Data Su rce(s) Supporting Document(s) Color Laboratory test result [facility] ([facility] NORMAL RANGES [...] HCT IS 5% LESS SOURCE FOR DATA: [employer] 1800 OPERATION MANUAL( AUTOMATED BLOOD COUNTS AND [...] YEARS EXCLUSIVE. Clarity Laboratory test result [place] ([facility] NORMAL RANGES Age WBC [...] HCT IS 5% LESS SOURCE FOR DATA: [employer] 1800 OPERATION MANUAL( AUTOMATED BLOOD COUNTS AND [...] HCT IS 5% LESS SOURCE FOR DATA: [employer] 1800 OPERATION MANUAL( AUTOMATED BLOOD COUNTS AND [...] 2-19 YEARS EXCLUSIVE. Bilirubin,Urine Laboratory test result [facility] ([facility] NORMAL RANGES [...] HCT IS 5% LESS SOURCE FOR DATA: [employer] 1800 OPERATION MANUAL( AUTOMATED BLOOD COUNTS AND [...] YEARS EXCLUSIVE. Ketone Laboratory test result [facility] ([facility] NORMAL RANGES Age WBC [...] HCT IS 5% LESS SOURCE FOR DATA: [employer] 1800 OPERATION MANUAL( AUTOMATED BLOOD COUNTS AND [...] HCT IS 5% LESS SOURCE FOR DATA: [employer] 1800 OPERATION MANUAL( AUTOMATED BLOOD COUNTS AND [...] 2-19 YEARS EXCLUSIVE. pH 5.5 # 5.0-8.0 [facility] ([facility] NORMAL [...] HCT IS 5% LESS SOURCE FOR DATA: [employer] 1800 OPERATION MANUAL( AUTOMATED BLOOD COUNTS AND [...] 2-19 YEARS EXCLUSIVE. Protein Laboratory test result [facility] ([facility] NORMAL RANGES [...] HCT IS 5% LESS SOURCE FOR DATA: [employer] 1800 OPERATION MANUAL( AUTOMATED BLOOD COUNTS AND [...] 2-19 YEARS EXCLUSIVE. Nitrite Laboratory test result [facility] ([facility] NORMAL RANGES [...] HCT IS 5% LESS SOURCE FOR DATA: [employer] DYN 1800 OPERATION MANUAL( AUTOMATED BLOOD COUNTS [...] EXCLUSIVE. Urobilinogen 0.2 NA 0.2-1.0 [facility] ([facility] NORMAL RANGES Age WBC [...] HCT IS 5% LESS SOURCE FOR DATA: [employer] 1800 OPERATION MANUAL( AUTOMATED BLOOD COUNTS AND [...] Abnormal (applies to non -numeric results) [place] ([facility] NORMAL RANGES [...] HCT IS 5% LESS SOURCE FOR DATA: [employer] 1800 OPERATION MANUAL( AUTOMATED BLOOD COUNTS AND [...] result Abnormal (applies to non -numeric results) [facility] ([facility] NORMAL RANGES [...] HCT IS 5% LESS SOURCE FOR DATA: [employer] D[employer] 1800 OPERATION MANUAL( AUTOMATED BLOOD COUNTS [...] HCT IS 5% LESS SOURCE FOR DATA: [employer] 1800 OPERATION MANUAL( AUTOMATED BLOOD COUNTS AND [...] Cells - Ua Laboratory test result [place] ([facility] NORMAL RANGES [...] HCT IS 5% LESS SOURCE FOR DATA: [employer] 1800 OPERATION MANUAL( AUTOMATED BLOOD COUNTS AND [...] 2-19 YEARS EXCLUSIVE. Comment Laboratory test result [facility] ([facility] NORMAL RANGES [...] HCT IS 5% LESS SOURCE FOR DATA: [employer] 1800 OPERATION MANUAL( AUTOMATED BLOOD COUNTS AND [...] HCT IS 5% LESS SOURCE FOR DATA: [employer] 1800 OPERATION MANUAL( AUTOMATED BLOOD COUNTS AND [...] Ab normal (applies to non-numeric results) [facility] ([facility] ) NORMAL [...] HCT IS 5% LESS SOURCE FOR DATA: [employer] 1800 OPERATION MANUAL( AUTOMATED BLOOD COUNTS AND [...] 2-19 YEARS EXCLUSIVE. ID Date Data Source [id number] 03/11/2020 08:50:00 AM EDT [facility] ([facility] Name Value Range [...] HCT IS 5% LESS SOURCE FOR DATA: [employer] 1800 OPERATION MANUAL( AUTOMATED BLOOD COUNTS AND [...] HCT IS 5% LESS SOURCE FOR DATA: [employer] 1800 OPERATION MANUAL( AUTOMATED BLOOD COUNTS AND [...] in Serum or Plasma 48 mg/dL 45-65 [facility] ([facility] NORMAL RANGES [...] HCT IS 5% LESS SOURCE FOR DATA: [employer] D[employer] 1800 OPERATION MANUAL( AUTOMATED BLOOD COUNTS [...] 2-19 YEARS EXCLUSIVE. Cho/HDL Ratio 3.5 CALC [facility] ([facility] NORMAL RANGES Age [...] HCT IS 5% LESS SOURCE FOR DATA: [employer] 1800 OPERATION MANUAL( AUTOMATED BLOOD COUNTS AND [...] YEARS EXCLUSIVE. LDL_C 94 Calc 75-129 [facility] NORMAL RANGES Age WBC RBC [...] HCT IS 5% LESS SOURCE FOR DATA: [employer] 1800 OPERATION MANUAL( AUTOMATED BLOOD COUNTS AND [...] 2-19 YEARS EXCLUSIVE. ID Date Data Source [id number] 03/11/2020 08:50:00 AM EDT [facility] ([facility] Name Value Range Interpretation Code Description Data Su rce(s) Supporting Document(s) Creatine kinase [Enzymatic activity/volume] in Serum or Plasma 147 U/L 26-192 [facility] ([facility] NORMAL RANGES Age WBC [...] HCT IS 5% LESS SOURCE FOR DATA: [employer] 1800 OPERATION MANUAL( AUTOMATED BLOOD COUNTS AND [...] 2-19 YEARS EXCLUSIVE. ID Date Data Source [id number] 03/11/2020 08:50:00 AM EDT [facility] ([facility] Name Value Range Interpretation Code Description Data Su rce(s) Supporting Document(s) Glu 188 mg/dL 70-110 Above high normal [facility] ([facility] NORMAL RANGES [...] HCT IS 5% LESS SOURCE FOR DATA: [employer] 1800 OPERATION MANUAL( AUTOMATED BLOOD COUNTS AND [...] 2-19 YEARS EXCLUSIVE. BUN 18 mg/dL 8-23 [facility] ([facility] NORMAL [...] HCT IS 5% LESS SOURCE FOR DATA: [employer] 1800 OPERATION MANUAL( AUTOMATED BLOOD COUNTS AND [...] YEARS EXCLUSIVE. BUN/Creatinine Ratio 20.5 CALC [facility] ([facility] NORMAL RANGES Age [...] HCT IS 5% LESS SOURCE FOR DATA: [employer] 1800 OPERATION MANUAL( AUTOMATED BLOOD COUNTS AND [...] HCT IS 5% LESS SOURCE FOR DATA: [employer] 1800 OPERATION MANUAL( AUTOMATED BLOOD COUNTS AND [...] 2-19 YEARS EXCLUSIVE. Na 139 mmol/L 136-145 [facility] NORMAL RANGES Age WBC [...] HCT IS 5% LESS SOURCE FOR DATA: [employer] 1800 OPERATION MANUAL( AUTOMATED BLOOD COUNTS [...] 2-19 YEARS EXCLUSIVE. K 4.8 mmol/L 3.5-5.1 [facility] NORMAL RANGES Age WBC [...] HCT IS 5% LESS SOURCE FOR DATA: [employer] 1800 OPERATION MANUAL( AUTOMATED BLOOD COUNTS AND [...] 2-19 YEARS EXCLUSIVE. Co2 27.5 mmol/L 22.0-29.0 [facility] ([facility] NORMAL RANGES Age WBC RBC [...] HCT IS 5% LESS SOURCE FOR DATA: [employer] 1800 OPERATION MANUAL( AUTOMATED BLOOD COUNTS AND [...] 2-19 YEARS EXCLUSIVE. CL 103.6 mmol/L 98.0-107.0 [facility] ([facility] NORMAL RANGES Age WBC RBC HGB [...] HCT IS 5% LESS SOURCE FOR DATA: [employer] D[employer] 1800 OPERATION MANUAL( AUTOMATED BLOOD COUNTS [...] HCT IS 5% LESS SOURCE FOR DATA: [employer] 1800 OPERATION MANUAL( AUTOMATED BLOOD COUNTS AND [...] TP 6.5 g/dL 6.6-8.7 Below low normal [facility] ( [facility] NORMAL RANGES [...] HCT IS 5% LESS SOURCE FOR DATA: [employer] 1800 OPERATION MANUAL( AUTOMATED BLOOD COUNTS AND [...] 2-19 YEARS EXCLUSIVE. A/G Ratio 1.6 CALC [facility] ([facility] NORMAL [...] HCT IS 5% LESS SOURCE FOR DATA: [employer] 1800 OPERATION MANUAL( AUTOMATED BLOOD COUNTS AND [...] HCT IS 5% LESS SOURCE FOR DATA: [employer] 1800 OPERATION MANUAL( AUTOMATED BLOOD COUNTS AND [...] YEARS EXCLUSIVE. Alp 72.6 U/L 35-129 [facility] NORMAL RANGES Age [...] HCT IS 5% LESS SOURCE FOR DATA: [employer] 1800 OPERATION MANUAL( AUTOMATED BLOOD COUNTS AND [...] HCT IS 5% LESS SOURCE FOR DATA: [employer] 1800 OPERATION MANUAL( AUTOMATED BLOOD COUNTS AND [...] HCT IS 5% LESS SOURCE FOR DATA: [employer] 1800 OPERATION MANUAL( AUTOMATED BLOOD COUNTS AND [...] YEARS EXCLUSIVE. Ast (Sgot) 19 U/L 0-40 [facility] ([facility] NORMAL RANGES Age WBC [...] HCT IS 5% LESS SOURCE FOR DATA: [employer] 1800 OPERATION MANUAL( AUTOMATED BLOOD COUNTS AND [...] 2-19 YEARS EXCLUSIVE. Tbili 0.56 mg/dL 0.0-1.2 [facility] ([facility] NORMAL [...] HCT IS 5% LESS SOURCE FOR DATA: [employer] 1800 OPERATION MANUAL( AUTOMATED BLOOD COUNTS AND [...] HCT IS 5% LESS SOURCE FOR DATA: [employer] 1800 OPERATION MANUAL( AUTOMATED BLOOD COUNTS AND [...] HCT IS 5% LESS SOURCE FOR DATA: [employer] 1800 OPERATION MANUAL( AUTOMATED BLOOD COUNTS AND [...] INDIVIDUALA AGED 2-19 YEARS EXCLUSIVE. eGFR Non-Afr. Angolan 63 # [facility] ([facility] CKD-EPI eGFR 72 # [facility] ( [facility] CKD-EPI ID Date Data Source [id number] 03/11/2020 08:50:00 AM EDT [facility] ([facility] Name Value Range Interpretation Code Description Data Su rce(s) Supporting Document(s) WBC 7.0 10E3/uL 4.1-10.9 [facility] ([facility] NORMAL RANGES Age [...] HCT IS 5% LESS SOURCE FOR DATA: [employer] 1800 OPERATION MANUAL( AUTOMATED BLOOD COUNTS AND [...] YEARS EXCLUSIVE. RBC 4.55 10E6/uL 4.20-6.30 [facility] NORMAL RANGES Age WBC [...] HCT IS 5% LESS SOURCE FOR DATA: [employer] 1800 OPERATION MANUAL( AUTOMATED BLOOD COUNTS AND [...] 2-19 YEARS EXCLUSIVE. HGB 13.9 g/dL 12.0-18.0 [facility] ([facility] NORMAL [...] HCT IS 5% LESS SOURCE FOR DATA: [employer] 1800 OPERATION MANUAL( AUTOMATED BLOOD COUNTS AND [...] HCT IS 5% LESS SOURCE FOR DATA: [employer] 1800 OPERATION MANUAL( AUTOMATED BLOOD COUNTS AND [...] 2-19 YEARS EXCLUSIVE. HCT 41.5 % 37.0-51.0 [facility] NORMAL RANGES Age WBC RBC [...] HCT IS 5% LESS SOURCE FOR DATA: [employer] 1800 OPERATION MANUAL( AUTOMATED BLOOD COUNTS AND [...] 2-19 YEARS EXCLUSIVE. PLT 203 10E3/uL 140-440 [facility] ([facility] NORMAL RANGES Age [...] HCT IS 5% LESS SOURCE FOR DATA: [employer] 1800 OPERATION MANUAL( AUTOMATED BLOOD COUNTS [...] HCT IS 5% LESS SOURCE FOR DATA: [employer] 1800 OPERATION MANUAL( AUTOMATED BLOOD COUNTS AND [...] 2-19 YEARS EXCLUSIVE. MCHC 33.5 g/dL 31.0-36.0 [facility] ([facility] NORMAL RANGES Age WBC RBC [...] HCT IS 5% LESS SOURCE FOR DATA: [employer] 1800 OPERATION MANUAL( AUTOMATED BLOOD COUNTS AND [...] 2-19 YEARS EXCLUSIVE. Lym% 27.9 % 10.0-58.5 [facility] ([facility] NORMAL [...] HCT IS 5% LESS SOURCE FOR DATA: [employer] 1800 OPERATION MANUAL( AUTOMATED BLOOD COUNTS AND [...] HCT IS 5% LESS SOURCE FOR DATA: [employer] 1800 OPERATION MANUAL( AUTOMATED BLOOD COUNTS AND [...] 2-19 YEARS EXCLUSIVE. Neut% 61.3 % 37.0-92.0 [facility] ([facility] NORMAL [...] HCT IS 5% LESS SOURCE FOR DATA: [employer] 1800 OPERATION MANUAL( AUTOMATED BLOOD COUNTS [...] 2-19 YEARS EXCLUSIVE. MXD% 10.8 % 0.1-24.0 [facility] ([facility] NORMAL [...] HCT IS 5% LESS SOURCE FOR DATA: [employer] 1800 OPERATION MANUAL( AUTOMATED BLOOD COUNTS AND [...] 2-19 YEARS EXCLUSIVE. Lym# 2.0 10E3/uL 0.6-4.1 [facility] ([facility] NORMAL RANGES Age [...] HCT IS 5% LESS SOURCE FOR DATA: [employer] 1800 OPERATION MANUAL( AUTOMATED BLOOD COUNTS AND [...] 2-19 YEARS EXCLUSIVE. Neut# 4.2 % 2.0-7.8 [facility] ([facility] NORMAL [...] HCT IS 5% LESS SOURCE FOR DATA: [employer] 1800 OPERATION MANUAL( AUTOMATED BLOOD COUNTS [...] 2-19 YEARS EXCLUSIVE. MPV 10.8 fL 9.0-13.0 [facility] ([facility] NORMAL [...] HCT IS 5% LESS SOURCE FOR DATA: [employer] 1800 OPERATION MANUAL( AUTOMATED BLOOD COUNTS AND [...] EXCLUSIVE. MXD# 0.8 10E3/uL 0.0-1.8 [place] ([facility] NORMAL RANGES Age WBC [...] HCT IS 5% LESS SOURCE FOR DATA: [employer] 1800 OPERATION MANUAL( AUTOMATED BLOOD COUNTS AND [...] 2-19 YEARS EXCLUSIVE. ID Date Data Source [id number] 03/11/2020 01:45:00 PM EDT [facility] Name Value Range Interpretation Code Description Data Su rce(s) Supporting Document(s) Hemoglobin A1c/Hemoglobin.total in Blood 8.7 % 4.4 - 6.1 H [facility] {A1]{HB] ID Date Data Source [id number] 12/17/2019 11:09:00 AM EDT [facility] ([facility] Name Value Range Interpretation Code Description Data Su rce(s) Supporting Document(s) Chol 157 mg/dL 0-200 [...] HCT IS 5% LESS SOURCE FOR DATA: [employer] 1800 OPERATION MANUAL( AUTOMATED BLOOD COUNTS AND [...] HCT IS 5% LESS SOURCE FOR DATA: [employer] 1800 OPERATION MANUAL( AUTOMATED BLOOD COUNTS AND [...] HCT IS 5% LESS SOURCE FOR DATA: [employer] 1800 OPERATION MANUAL( AUTOMATED BLOOD COUNTS AND [...] in Serum or Plasma 46 mg/dL 45-65 [facility] ([facility] NORMAL RANGES [...] HCT IS 5% LESS SOURCE FOR DATA: [employer] 1800 OPERATION MANUAL( AUTOMATED BLOOD COUNTS AND [...] HCT IS 5% LESS SOURCE FOR DATA: [employer] 1800 OPERATION MANUAL( AUTOMATED BLOOD COUNTS AND [...] >32 mL/min Normal ID Date Data Source [id number] 12/17/2019 11:09:00 AM EDT [facility] ([facility] Name Value Range Interpretation Code Description Data Su rce(s) Supporting Document(s) Creatine kinase [Enzymatic activity/volume] in Serum or Plasma 125 U/L 26-192 [facility] ([facility] NORMAL RANGES [...] HCT IS 5% LESS SOURCE FOR DATA: [employer] 1800 OPERATION MANUAL( AUTOMATED BLOOD COUNTS AND [...] >32 mL/min Normal ID Date Data Source [id number] 12/17/2019 11:09:00 AM [facility]AD [facility] ([facility] Name Value Range Interpretation Code Description Data Su rce(s) Supporting Document(s) Creat 1.0 mg/dL 0.5-1.0 [place] ([facility] NORMAL [...] HCT IS 5% LESS SOURCE FOR DATA: [employer] 1800 OPERATION MANUAL( AUTOMATED BLOOD COUNTS AND [...] HCT IS 5% LESS SOURCE FOR DATA: [employer] 1800 OPERATION MANUAL( AUTOMATED BLOOD COUNTS AND [...] >32 mL/min Normal BUN 17 mg/dL 8-23 [facility] ([facility] NORMAL [...] HCT IS 5% LESS SOURCE FOR DATA: [employer] 1800 OPERATION MANUAL( AUTOMATED BLOOD COUNTS AND [...] >32 mL/min Normal Na 140 mmol/L 136-145 [facility] ([facility] NORMAL RANGES [...] HCT IS 5% LESS SOURCE FOR DATA: [employer] 1800 OPERATION MANUAL( AUTOMATED BLOOD COUNTS AND [...] >32 mL/min Normal BUN/Creatinine Ratio 17.7 CALC [facility] ([facility] NORMAL RANGES Age [...] HCT IS 5% LESS SOURCE FOR DATA: [employer] 1800 OPERATION MANUAL( AUTOMATED BLOOD COUNTS AND [...] >32 mL/min Normal K 4.6 mmol/L 3.5-5.1 [facility] ([facility] NORMAL RANGES [...] HCT IS 5% LESS SOURCE FOR DATA: [employer] 1800 OPERATION MANUAL( AUTOMATED BLOOD COUNTS AND [...] >32 mL/min Normal CA 9.1 mg/dL 8.6-10.2 [facility] NORMAL RANGES Age WBC RBC [...] HCT IS 5% LESS SOURCE FOR DATA: [employer] 1800 OPERATION MANUAL( AUTOMATED BLOOD COUNTS AND [...] >32 mL/min Normal CL 105.3 mmol/L 98.0-107.0 [facility] ([facility] NORMAL RANGES Age WBC RBC [...] HCT IS 5% LESS SOURCE FOR DATA: [employer] 1800 OPERATION MANUAL( AUTOMATED BLOOD COUNTS AND [...] >32 mL/min Normal Co2 26.3 mmol/L 22.0-29.0 [employer] [facility] NORMAL RANGES Age WBC RBC HGB [...] HCT IS 5% LESS SOURCE FOR DATA: [employer] 1800 OPERATION MANUAL( AUTOMATED BLOOD COUNTS AND [...] TP 6.4 g/dL 6.6-8.7 Below low normal [facility] ( [facility] NORMAL RANGES [...] HCT IS 5% LESS SOURCE FOR DATA: [employer] 1800 OPERATION MANUAL( AUTOMATED BLOOD COUNTS AND [...] >32 mL/min Normal A/G Ratio 1.5 CALC [employer] [facility] NORMAL RANGES Age [...] HCT IS 5% LESS SOURCE FOR DATA: [employer] 1800 OPERATION MANUAL( AUTOMATED BLOOD COUNTS AND [...] >32 mL/min Normal Alb 3.8 g/dL 3.4-4.8 [facility] NORMAL RANGES Age [...] HCT IS 5% LESS SOURCE FOR DATA: [employer] 1800 OPERATION MANUAL( AUTOMATED BLOOD COUNTS AND [...] HCT IS 5% LESS SOURCE FOR DATA: [employer] 1800 OPERATION MANUAL( AUTOMATED BLOOD COUNTS AND [...] HCT IS 5% LESS SOURCE FOR DATA: [employer] 1800 OPERATION MANUAL( AUTOMATED BLOOD COUNTS AND [...] mL/min Normal Alt (SGPT) 17 U/L 0-41 [facility] ([facility] NORMAL RANGES Age WBC [...] HCT IS 5% LESS SOURCE FOR DATA: [employer] 1800 OPERATION MANUAL( AUTOMATED BLOOD COUNTS AND [...] mL/min Normal Osmolality-Calculated 289.9 CALC [facility] ([facility] NORMAL RANGES [...] HCT IS 5% LESS SOURCE FOR DATA: [employer] 1800 OPERATION MANUAL( AUTOMATED BLOOD COUNTS AND [...] mL/min Normal Ast (Sgot) 18 U/L 0-40 [facility] ([facility] NORMAL RANGES Age WBC RBC HGB [...] HCT IS 5% LESS SOURCE FOR DATA: [employer] 1800 OPERATION MANUAL( AUTOMATED BLOOD COUNTS AND [...] >32 mL/min Normal Tbili 0.37 mg/dL 0.0-1.2 [facility] ([facility] NORMAL RANGES Age WBC [...] HCT IS 5% LESS SOURCE FOR DATA: [employer] 1800 OPERATION MANUAL( AUTOMATED BLOOD COUNTS AND [...] and above >32 mL/min Normal eGFR Non-Afr. Angolan 55 # [facility] ([facility] [...] HCT IS 5% LESS SOURCE FOR DATA: [employer] 1800 OPERATION MANUAL( AUTOMATED BLOOD COUNTS [...] HCT IS 5% LESS SOURCE FOR DATA: [employer] 1800 OPERATION MANUAL( AUTOMATED BLOOD COUNTS AND [...] >32 mL/min Normal Anion Gap 13 mmol/L [facility] NORMAL RANGES Age [...] HCT IS 5% LESS SOURCE FOR DATA: [employer] 1800 OPERATION MANUAL( AUTOMATED BLOOD COUNTS AND [...] >32 mL/min Normal ID Date Data Source [id number] 12/17/2019 11:09:00 AM [facility] ([facility] Name Value Range Interpretation Code Description Data Su rce(s) Supporting Document(s) WBC 7.9 10E3/uL 4.1-10.9 [place] ([facility] NORMAL RANGES Age [...] HCT IS 5% LESS SOURCE FOR DATA: [employer] 1800 OPERATION MANUAL( AUTOMATED BLOOD COUNTS AND [...] HCT IS 5% LESS SOURCE FOR DATA: [employer] 1800 OPERATION MANUAL( AUTOMATED BLOOD COUNTS AND [...] >32 mL/min Normal RBC 4.46 10E6/uL 4.20-6.30 [facility] ([facility] NORMAL RANGES Age [...] HCT IS 5% LESS SOURCE FOR DATA: [employer] 1800 OPERATION MANUAL( AUTOMATED BLOOD COUNTS AND [...] >32 mL/min Normal HGB 13.8 g/dL 12.0-18.0 [facility] NORMAL RANGES Age WBC RBC [...] HCT IS 5% LESS SOURCE FOR DATA: [employer] 1800 OPERATION MANUAL( AUTOMATED BLOOD COUNTS AND [...] mL/min Normal MCV 91.3 fL 80.0-97.0 [place] [facility] NORMAL RANGES Age WBC RBC [...] HCT IS 5% LESS SOURCE FOR DATA: [employer] 1800 OPERATION MANUAL( AUTOMATED BLOOD COUNTS AND [...] >32 mL/min Normal MCHC 33.9 g/dL 31.0-36.0 [facility] NORMAL RANGES Age WBC RBC [...] >32 mL/min Normal MCH 30.9 pg 26.0-32.0 [facility] ([facility] NORMAL [...] HCT IS 5% LESS SOURCE FOR DATA: [employer] 1800 OPERATION MANUAL( AUTOMATED BLOOD COUNTS [...] >32 mL/min Normal PLT 182 10E3/uL 140-440 [employer] ([facility] NORMAL RANGES Age [...] HCT IS 5% LESS SOURCE FOR DATA: [employer] 1800 OPERATION MANUAL( AUTOMATED BLOOD COUNTS AND [...] >32 mL/min Normal RDW-CV 13.3 % 11.5-14.5 [facility] ([facility] NORMAL [...] HCT IS 5% LESS SOURCE FOR DATA: [employer] 1800 OPERATION MANUAL( AUTOMATED BLOOD COUNTS AND [...] >32 mL/min Normal Lym% 23.5 % 10.0-58.5 [facility] NORMAL RANGES Age [...] HCT IS 5% LESS SOURCE FOR DATA: [employer] 1800 OPERATION MANUAL( AUTOMATED BLOOD COUNTS AND [...] >32 mL/min Normal Neut% 67.6 % 37.0-92.0 [facility] ([facility] P.C[facility] NORMAL [...] HCT IS 5% LESS SOURCE FOR DATA: [employer] 1800 OPERATION MANUAL( AUTOMATED BLOOD COUNTS AND [...] mL/min Normal Lym# 1.9 10E3/uL 0.6-4.1 [place] ([facility] NORMAL RANGES Age [...] HCT IS 5% LESS SOURCE FOR DATA: [employer] [facility] 1800 OPERATION MANUAL( AUTOMATED BLOOD COUNTS AND [...] >32 mL/min Normal MXD% 8.9 % 0.1-24.0 [facility] ([facility] NORMAL [...] HCT IS 5% LESS SOURCE FOR DATA: [facility] [facility] 1800 OPERATION MANUAL( AUTOMATED BLOOD COUNTS AND [...] >32 mL/min Normal Neut# 5.3 % 2.0-7.8 [facility] ([facility] NORMAL [...] HCT IS 5% LESS SOURCE FOR DATA: [employer] [facility] 1800 OPERATION MANUAL( AUTOMATED BLOOD COUNTS AND [...] >32 mL/min Normal MXD# 0.7 10E3/uL 0.0-1.8 [facility] ([facility] NORMAL RANGES Age [...] HCT IS 5% LESS SOURCE FOR DATA: [facility] [facility] 1800 OPERATION MANUAL( AUTOMATED BLOOD COUNTS AND [...] >32 mL/min Normal MPV 11.1 fL 9.0-13.0 [facility] ([facility] NORMAL [...] >32 mL/min Normal ID Date Data Source [id number] 12/17/2019 11:09:00 AM EDT [facility] ([facility] Name Value Range Interpretation Code Description Data Su rce(s) Supporting Document(s) Hemoglobin A1c/Hemoglobin.total in Blood 9.6 % 4.4-6.1 Above high normal [facility] ([facility] {A1] {HB] ID Date Data Source [id number] 12/17/2019 06:27:00 PM EDT [facility] Name Value Range Interpretation Code Description Data Su rce(s) Supporting Document(s) Hemoglobin A1c/Hemoglobin.total in Blood 9.6 % 4.4 - 6.1 H [facility] {A1]{HB] ID Date Data Source [id number] 09/17/2019 01:23:00 PM EDT [facility] ([facility] Name Value Range Interpretation Code Description Data Su rce(s) Supporting Document(s) Hemoglobin A1c/Hemoglobin.total in Blood 8.8 % 4.4-6.1 Above high normal [facility] ([facility] {A1] {HB] ID Date Data Source [id number] 09/17/2019 01:23:00 PM EDT [facility] ([facility] [...] HCT IS 5% LESS SOURCE FOR DATA: [facility] 1800 OPERATION MANUAL( AUTOMATED BLOOD COUNTS AND [...] DIFF.) APPENDIX B-3 Cho/HDL Ratio 3.4 CALC [facility] ([facility] CLASSIFICATION CHOLESTEROL FO R ADULTS [...] HCT IS 5% LESS SOURCE FOR DATA: [facility] [facility] 1800 OPERATION MANUAL( AUTOMATED BLOOD COUNTS AND [...] HCT IS 5% LESS SOURCE FOR DATA: [facility] [facility] 1800 OPERATION MANUAL( AUTOMATED BLOOD COUNTS AND DIFF.) APPENDIX B-3 ID Date Data Source [id number] 09/17/2019 01:23:00 PM EDT [facility] ([facility] Name Value Range Interpretation Code Description Data Su rce(s) Supporting Document(s) Creatine kinase [Enzymatic activity/volume] in Serum or Plasma 127 U/L 26-192 [facility] ([facility] CLASSIFICATION CHOLESTEROL [...] HCT IS 5% LESS SOURCE FOR DATA: [facility] 1800 OPERATION MANUAL( AUTOMATED BLOOD COUNTS AND DIFF.) APPENDIX B-3 ID Date Data Source [id number] 09/17/2019 01:23:00 PM EDT [facility] ([facility] Name Value Range Interpretation Code Description Data Su rce(s) Supporting Document(s) Glu 215 mg/dL 70-110 Above high normal [facility] ([facility] CLASSIFICATION CHOLESTEROL [...] DIFF.) APPENDIX B-3 BUN 20 mg/dL 8 [facility] ([facility] CLASSIFICATION [...] HCT IS 5% LESS SOURCE FOR DATA: [facility] 1800 OPERATION MANUAL( AUTOMATED BLOOD COUNTS AND DIFF.) APPENDIX B-3 BUN/Creatinine Ratio 21.0 CALC [facility] ([facility] CLASSIFICATION CHOLESTEROL FO [...] DIFF.) APPENDIX B-3 Na 141 mmol/L 136-145 [facility] CLASSIFICATION CHOLESTEROL FO R [...] APPENDIX B-3 K 4.6 mmol/L 3.5-5.1 [facility] ([facility] CLASSIFICATION CHOLESTEROL FO R [...] HCT IS 5% LESS SOURCE FOR DATA: [facility] 1800 OPERATION MANUAL( AUTOMATED BLOOD COUNTS AND DIFF.) APPENDIX B-3 CL 106.6 mmol/L 98.0-107.0 [facility] ([facility] CLASSIFICATION CHOLESTEROL FO R ADULTS [...] APPENDIX B-3 Co2 22.5 mmol/L 22.0-29.0 [facility] ([facility] CLASSIFICATION CHOLESTEROL FO [...] HCT IS 5% LESS SOURCE FOR DATA: [facility] 1800 OPERATION MANUAL( AUTOMATED BLOOD COUNTS AND DIFF.) APPENDIX B-3 TP 6.3 g/dL 6.6-8.7 Below low normal [facility] ( [facility] CLASSIFICATION [...] HCT IS 5% LESS SOURCE FOR DATA: [facility] 1800 OPERATION MANUAL( AUTOMATED BLOOD COUNTS AND [...] DIFF.) APPENDIX B-3 Globulin 2.6 CALC [facility] CLASSIFICATION CHOLESTEROL FO [...] HCT IS 5% LESS SOURCE FOR DATA: [employer] 1800 OPERATION MANUAL( AUTOMATED BLOOD COUNTS [...] HCT IS 5% LESS SOURCE FOR DATA: [facility] 1800 OPERATION MANUAL( AUTOMATED BLOOD COUNTS AND DIFF.) APPENDIX B-3 Alt (SGPT) 19 U/L 0-41 [facility] CLASSIFICATION CHOLESTEROL FO R [...] HCT IS 5% LESS SOURCE FOR DATA: [facility] [facility] 1800 OPERATION MANUAL( AUTOMATED BLOOD COUNTS AND DIFF.) APPENDIX B-3 Alp 70.2 U/L 35-129 [facility] CLASSIFICATION CHOLESTEROL FO R ADULTS [...] HCT IS 5% LESS SOURCE FOR DATA: [employer] 1800 OPERATION MANUAL( AUTOMATED BLOOD COUNTS AND DIFF.) APPENDIX B-3 Ast (Sgot) 18 U/L 0-40 [facility] ([facility] CLASSIFICATION CHOLESTEROL FO R [...] APPENDIX B-3 Tbili 0.38 mg/dL 0.0-1.2 [facility] ([facility] CLASSIFICATION CHOLESTEROL FO R [...] DIFF.) APPENDIX B-3 Anion Gap 16 mmol/L [facility] CLASSIFICATION CHOLESTEROL FO [...] HCT IS 5% LESS SOURCE FOR DATA: [employer] [facility] 1800 OPERATION MANUAL( AUTOMATED BLOOD COUNTS AND DIFF.) APPENDIX B-3 eGFR Non-Afr. Angolan 63 # [facility] ([facility] [...] HCT IS 5% LESS SOURCE FOR DATA: [employer] 1800 OPERATION MANUAL( AUTOMATED BLOOD COUNTS AND DIFF.) APPENDIX B-3 ID Date Data Source [id number] 09/17/2019 01:23:00 PM EDT [facility] ([facility] Name Value Range Interpretation Code Description Data Su rce(s) Supporting Document(s) WBC 8.4 10E3/uL 4.1-10.9 [facility] ([facility] CLASSIFICATION CHOLESTEROL FO [...] HCT IS 5% LESS SOURCE FOR DATA: [facility] [facility] 1800 OPERATION MANUAL( AUTOMATED BLOOD COUNTS AND DIFF.) APPENDIX B-3 RBC 4.48 10E6/uL 4.20-6.30 [facility] ([facility] CLASSIFICATION CHOLESTEROL FO [...] HCT IS 5% LESS SOURCE FOR DATA: [facility] [facility] 1800 OPERATION MANUAL( AUTOMATED BLOOD COUNTS AND [...] APPENDIX B-3 HGB 13.8 g/dL 12.0-18.0 [facility] CLASSIFICATION CHOLESTEROL FO R ADULTS [...] HCT IS 5% LESS SOURCE FOR DATA: [employer] 1800 OPERATION MANUAL( AUTOMATED BLOOD COUNTS AND DIFF.) APPENDIX B-3 PLT 194 10E3/uL 140-440 [facility] ([facility] CLASSIFICATION CHOLESTEROL FO [...] APPENDIX B-3 MCH 30.8 pg 26.0-32.0 [facility] ([facility] CLASSIFICATION [...] HCT IS 5% LESS SOURCE FOR DATA: [employer] [facility] 1800 OPERATION MANUAL( AUTOMATED BLOOD COUNTS AND DIFF.) APPENDIX B-3 RDW-CV 13.2 % 11.5-14.5 [facility] ([facility] CLASSIFICATION [...] HCT IS 5% LESS SOURCE FOR DATA: [employer] [facility] 1800 OPERATION MANUAL( AUTOMATED BLOOD COUNTS AND DIFF.) APPENDIX B-3 Lym# 1.9 10E3/uL 0.6-4.1 [facility] ([facility] CLASSIFICATION CHOLESTEROL FO [...] HCT IS 5% LESS SOURCE FOR DATA: [employer] [facility] 1800 OPERATION MANUAL( AUTOMATED BLOOD COUNTS AND [...] DIFF.) APPENDIX B-3 Neut% 68.8 % 37.0-92.0 [facility] CLASSIFICATION CHOLESTEROL FO [...] HCT IS 5% LESS SOURCE FOR DATA: [facility] [facility] 1800 OPERATION MANUAL( AUTOMATED BLOOD COUNTS AND DIFF.) APPENDIX B-3 MXD# 0.8 10E3/uL 0.0-1.8 [facility] ([facility] CLASSIFICATION CHOLESTEROL FO [...] HCT IS 5% LESS SOURCE FOR DATA: [employer] [facility] 1800 OPERATION MANUAL( AUTOMATED BLOOD COUNTS AND [...] HCT IS 5% LESS SOURCE FOR DATA: [facility] [facility] 1800 OPERATION MANUAL( AUTOMATED BLOOD COUNTS AND DIFF.) APPENDIX B-3 Neut# 5.7 % 2.0-7.8 [facility] CLASSIFICATION CHOLESTEROL FO [...] HCT IS 5% LESS SOURCE FOR DATA: [employer] 1800 OPERATION MANUAL( AUTOMATED BLOOD COUNTS AND DIFF.) APPENDIX B-3 ID Date Data Source [id number] 09/17/2019 05:53:00 PM EDT [facility] Name Value Range Interpretation Code Description Data Su rce(s) Supporting Document(s) Hemoglobin A1c/Hemoglobin.total in Blood 8.8 % 4.4 - 6.1 H [facility] {A1]{HB] ID Date Data Source [id number] 06/20/2019 09:17:00 AM EST [facility] ([facility] [employer] [facility] Name Value Range Interpretation Code Description Data Su rce(s) Supporting Document(s) Hemoglobin A1c/Hemoglobin.total in Blood 9.5 % 4.4-6.1 Above high normal [facility] ([facility] {A1] {HB] ID Date Data Source [id number] 06/20/2019 09:17:00 AM EST [facility] ([facility] [...] DIFF.) APPENDIX B-3 Clarity Laboratory test result [facility] ([facility] CLASSIFICATION CHOLESTEROL [...] HCT IS 5% LESS SOURCE FOR DATA: [employer] 1800 OPERATION MANUAL( AUTOMATED BLOOD COUNTS AND DIFF.) APPENDIX B-3 Glucose-Ua Laboratory test result [place] JOIE ([facility] CLASSIFICATION CHOLESTEROL [...] DIFF.) APPENDIX B-3 Ketone Laboratory test result [facility] ([facility] CLASSIFICATION CHOLESTEROL [...] HCT IS 5% LESS SOURCE FOR DATA: [employer] 1800 OPERATION MANUAL( AUTOMATED BLOOD COUNTS AND DIFF.) APPENDIX B-3 Bilirubin,Urine Laboratory test result [facility] ([facility] CLASSIFICATION CHOLESTEROL [...] HCT IS 5% LESS SOURCE FOR DATA: [facility] 1800 OPERATION MANUAL( AUTOMATED BLOOD COUNTS AND [...] HCT IS 5% LESS SOURCE FOR DATA: [facility] [facility] 1800 OPERATION MANUAL( AUTOMATED BLOOD COUNTS AND DIFF.) APPENDIX B-3 pH 6.0 # 5.0-8.0 [facility] ([facility] CLASSIFICATION [...] HCT IS 5% LESS SOURCE FOR DATA: [employer] 1800 OPERATION MANUAL( AUTOMATED BLOOD COUNTS AND DIFF.) APPENDIX B-3 Protein Laboratory test result [facility] ([facility] CLASSIFICATION CHOLESTEROL [...] DIFF.) APPENDIX B-3 Nitrite Laboratory test result [facility] ([facility] CLASSIFICATION CHOLESTEROL [...] HCT IS 5% LESS SOURCE FOR DATA: [facility] [facility] 1800 OPERATION MANUAL( AUTOMATED BLOOD COUNTS AND [...] HCT IS 5% LESS SOURCE FOR DATA: [employer] 1800 OPERATION MANUAL( AUTOMATED BLOOD COUNTS AND DIFF.) APPENDIX B-3 Leukocyte Laboratory test result [place] ([facility] CLASSIFICATION CHOLESTEROL [...] HCT IS 5% LESS SOURCE FOR DATA: [employer] 1800 OPERATION MANUAL( AUTOMATED BLOOD COUNTS AND DIFF.) APPENDIX B-3 ID Date Data Source [id number] 06/20/2019 09:17:00 AM EST [facility] ([facility] [...] HCT IS 5% LESS SOURCE FOR DATA: [employer] [facility] 1800 OPERATION MANUAL( AUTOMATED BLOOD COUNTS AND DIFF.) APPENDIX B-3 Trig 80 mg/dL 40-200 [facility] CLASSIFICATION CHOLESTEROL FO [...] HCT IS 5% LESS SOURCE FOR DATA: [employer] [facility] 1800 OPERATION MANUAL( AUTOMATED BLOOD COUNTS AND DIFF.) APPENDIX B-3 Cho/HDL Ratio 3.2 Calc [facility] ([facility] CLASSIFICATION CHOLESTEROL FO R ADULTS [...] HCT IS 5% LESS SOURCE FOR DATA: [employer] 1800 OPERATION MANUAL( AUTOMATED BLOOD COUNTS AND DIFF.) APPENDIX B-3 LDL_C 88 Calc 75-129 [facility] CLASSIFICATION CHOLESTEROL FO [...] HCT IS 5% LESS SOURCE FOR DATA: [facility] [facility] 1800 OPERATION MANUAL( AUTOMATED BLOOD COUNTS AND DIFF.) APPENDIX B-3 ID Date Data Source [id number] 06/20/2019 09:17:00 AM DES DINH ([facility] Name Value Range Interpretation Code Description Data Su rce(s) Supporting Document(s) Creatine kinase [Enzymatic activity/volume] in Serum or Plasma 145 U/L 26-192 [facility] ([facility] CLASSIFICATION CHOLESTEROL [...] DIFF.) APPENDIX B-3 ID Date Data Source [id number] 06/20/2019 09:17:00 AM EST [facility] ([facility] Name Value Range Interpretation Code Description Data Su rce(s) Supporting Document(s) Glu 145 mg/dL 70-110 Above high normal [facility] ([facility] CLASSIFICATION CHOLESTEROL [...] HCT IS 5% LESS SOURCE FOR DATA: [employer] 1800 OPERATION MANUAL( AUTOMATED BLOOD COUNTS AND DIFF.) APPENDIX B-3 BUN 16 mg/dL 8- [facility] CLASSIFICATION CHOLESTEROL FO [...] HCT IS 5% LESS SOURCE FOR DATA: [employer] 1800 OPERATION MANUAL( AUTOMATED BLOOD COUNTS AND DIFF.) APPENDIX B-3 K 5.0 mmol/L 3.5-5.1 [facility] ([facility] CLASSIFICATION CHOLESTEROL FO R [...] HCT IS 5% LESS SOURCE FOR DATA: [employer] 1800 OPERATION MANUAL( AUTOMATED BLOOD COUNTS AND DIFF.) APPENDIX B-3 Na 139 mmol/L 136-145 [facility] CLASSIFICATION CHOLESTEROL FO R [...] APPENDIX B-3 BUN/Creatinine Ratio 18.5 CALC [facility] ([facility] CLASSIFICATION CHOLESTEROL FO [...] HCT IS 5% LESS SOURCE FOR DATA: [employer] 1800 OPERATION MANUAL( AUTOMATED BLOOD COUNTS AND DIFF.) APPENDIX B-3 CL 104.2 mmol/L 98.0-107.0 [facility] ([facility] CLASSIFICATION CHOLESTEROL FO R ADULTS [...] APPENDIX B-3 Co2 27.5 mmol/L 22.0-29.0 [facility] ([facility] CLASSIFICATION CHOLESTEROL FO [...] APPENDIX B-3 CA 9.2 mg/dL 8.6-10.2 [facility] CLASSIFICATION CHOLESTEROL FO [...] HCT IS 5% LESS SOURCE FOR DATA: [employer] 1800 OPERATION MANUAL( AUTOMATED BLOOD COUNTS AND DIFF.) APPENDIX B-3 TP 6.4 g/dL 6.6-8.7 Below low normal [facility] ( [facility] CLASSIFICATION [...] HCT IS 5% LESS SOURCE FOR DATA: [employer] 1800 OPERATION MANUAL( AUTOMATED BLOOD COUNTS AND DIFF.) APPENDIX B-3 Globulin 2.5 CALC [facility] ([facility] CLASSIFICATION CHOLESTEROL FO [...] IS 5% LESS SOURCE FOR DATA: [employer] 1800 OPERATION MANUAL( AUTOMATED BLOOD COUNTS AND [...] HCT IS 5% LESS SOURCE FOR DATA: [employer] 1800 OPERATION MANUAL( AUTOMATED BLOOD COUNTS AND DIFF.) APPENDIX B-3 Alb 3.8 g/dL 3.4-4.8 [facility] ([facility] CLASSIFICATION CHOLESTEROL FO [...] HCT IS 5% LESS SOURCE FOR DATA: [employer] 1800 OPERATION MANUAL( AUTOMATED BLOOD COUNTS AND DIFF.) APPENDIX B-3 Alt (SGPT) 18 U/L 0-41 [facility] CLASSIFICATION CHOLESTEROL FO R [...] DIFF.) APPENDIX B-3 Alp 63.7 U/L 35-129 [facility] CLASSIFICATION CHOLESTEROL FO [...] HCT IS 5% LESS SOURCE FOR DATA: [employer] [facility] 1800 OPERATION MANUAL( AUTOMATED BLOOD COUNTS AND [...] B-3 Tbili 0.49 mg/dL 0.0-1.2 [facility] ([facility] CLASSIFICATION CHOLESTEROL FO R [...] APPENDIX B-3 Ast (Sgot) 20 U/L 0-40 [facility] ([facility] CLASSIFICATION CHOLESTEROL FO R [...] HCT IS 5% LESS SOURCE FOR DATA: [employer] [facility] 1800 OPERATION MANUAL( AUTOMATED BLOOD COUNTS AND [...] HCT IS 5% LESS SOURCE FOR DATA: [employer] 1800 OPERATION MANUAL( AUTOMATED BLOOD COUNTS AND DIFF.) APPENDIX B-3 eGFR Non-Afr. Angolan 63 # [facility] ([facility] CKD-EPI ID Date Data Source [id number] 06/20/2019 09:17:00 AM EST [facility] ([facility] Name Value Range [...] HCT IS 5% LESS SOURCE FOR DATA: [employer] [facility] 1800 OPERATION MANUAL( AUTOMATED BLOOD COUNTS AND DIFF.) APPENDIX B-3 WBC 6.7 10E3/uL 4.1-10.9 [facility] ([facility] CLASSIFICATION CHOLESTEROL FO [...] DIFF.) APPENDIX B-3 HCT 41.2 % 37.0-51.0 [facility] ([facility] CLASSIFICATION [...] HCT IS 5% LESS SOURCE FOR DATA: [employer] [facility] 1800 OPERATION MANUAL( AUTOMATED BLOOD COUNTS AND [...] HCT IS 5% LESS SOURCE FOR DATA: [employer] 1800 OPERATION MANUAL( AUTOMATED BLOOD COUNTS AND DIFF.) APPENDIX B-3 RDW-CV 13.2 % 11.5-14.5 [facility] CLASSIFICATION CHOLESTEROL FO R ADULTS [...] DIFF.) APPENDIX B-3 PLT 199 10E3/uL 140-440 [facility] ([facility] CLASSIFICATION CHOLESTEROL FO [...] HCT IS 5% LESS SOURCE FOR DATA: [employer] 1800 OPERATION MANUAL( AUTOMATED BLOOD COUNTS AND DIFF.) APPENDIX B-3 Lym% 27.5 % 10.0-58.5 [facility] CLASSIFICATION CHOLESTEROL FO R ADULTS [...] HCT IS 5% LESS SOURCE FOR DATA: [employer] 1800 OPERATION MANUAL( AUTOMATED BLOOD COUNTS AND DIFF.) APPENDIX B-3 Neut% 63.4 % 37.0-92.0 [facility] ([facility] CLASSIFICATION [...] HCT IS 5% LESS SOURCE FOR DATA: [employer] [facility] 1800 OPERATION MANUAL( AUTOMATED BLOOD COUNTS AND DIFF.) APPENDIX B-3 Lym# 1.8 10E3/uL 0.6-4.1 [facility] ([facility] CLASSIFICATION CHOLESTEROL FO [...] HCT IS 5% LESS SOURCE FOR DATA: [employer] [facility] 1800 OPERATION MANUAL( AUTOMATED BLOOD COUNTS AND [...] HCT IS 5% LESS SOURCE FOR DATA: [employer] [facility] 1800 OPERATION MANUAL( AUTOMATED BLOOD COUNTS AND DIFF.) APPENDIX B-3 Neut# 4.3 % 2.0-7.8 [facility] CLASSIFICATION CHOLESTEROL FO [...] HCT IS 5% LESS SOURCE FOR DATA: [employer] [facility] 1800 OPERATION MANUAL( AUTOMATED BLOOD COUNTS AND DIFF.) APPENDIX B-3 MXD# 0.6 10E3/uL 0.0-1.8 [facility] ([facility] CLASSIFICATION CHOLESTEROL FO [...] HCT IS 5% LESS SOURCE FOR DATA: [employer] [facility] 1800 OPERATION MANUAL( AUTOMATED BLOOD COUNTS AND [...] DIFF.) APPENDIX B-3 ID Date Data Source [id number] 06/20/2019 02:24:00 PM EST [facility] Name Value Range Interpretation Code Description Data Su rce(s) Supporting Document(s) Hemoglobin A1c/Hemoglobin.total in Blood 9.5 % 4.4 - 6.1 H [facility] {A1]{HB] Procedure Social History Code Duration Value [...] k g/m2 [facility] ([facility] [place] body weight 130 [lb_av] 130 [lb_av] MED[facility] T ([facility] Body weight 221.00 [lb_av] 221.00 [lb_av] [facility] T ([facility] Body height 66 [in_i] 66 [in_i] [facility] ([facility] 5'6" Respiratory rate [...] k g/m2 [facility] ([facility] [place] body weight 130 [lb_av] 130 [lb_av] MED[facility] T ([facility] Body weight 223.00 [lb_av] 223.00 [lb_av] [facility] T ([facility] Body height 66 [in_i] 66 [in_i] [facility] ([facility] 5'6" Respiratory rate [...] k g/m2 [facility] ([facility] [place] body weight 130 [lb_av] 130 [lb_av] MED[facility] T ([facility] Body weight 225.00 [lb_av] 225.00 [lb_av] MED[facility] T ([facility] Body height 66 [in_i] 66 [in_i] [facility] ([facility] 5'6" Respiratory rate [...] k g/m2 [facility] ([facility] [place] body weight 130 [lb_av] 130 [lb_av] MED[facility] T ([facility] Body weight 227.00 [lb_av] 227.00 [lb_av] MED[facility] T ([facility] Body height 66 [in_i] 66 [in_i] [facility] ([facility] 5'6" Respiratory rate [...] k g/m2 [facility] ([facility] [place] body weight 130 [lb_av] 130 [lb_av] MED[facility] T ([facility] Body weight 224.00 [lb_av] 224.00 [lb_av] MED[facility] T ([facility] Body height 66 [in_i] 66 [in_i] [facility] ([facility] 5'6" Oxygen saturation in Arterial blood by Pulse oximetry 95 % 95 % [facility] ([facility] ([place]), (Room Air) Body mass index (BMI) [Ratio] 36.6 kg/m2 36.6 k g/m2 [facility] ([facility] Body weight 227.00 [lb_av] 227.00 [lb_av] MED[facility] T ([facility] Body height 66 [in_i] 66 [in_i] [facility] ([facility] 5'6" Respiratory rate [...] Heart rate 68 /min 68 /min [facility] ([facility] Body temperature 97.8 [degF] 97.8 [degF] [facility] ([facility] Diastolic blood pressure 74 mm[Hg] 74 mm[Hg] [facility] ([facility] Systolic blood pressure 132 mm[Hg] 132 mm[Hg] M RICARDO ([facility] Oxygen saturation in Arterial blood by Pulse oximetry 96 % 96 % MEDVIDAL ([facility] Body mass index (BMI) [Ratio] 36.5 kg/m2 36.5 k g/m2 [facility] ([facility] Body weight 226.00 [lb_av] 226.00 [lb_av] MEDEN T ([facility] Body height 66 [in_i] 66 [in_i] [facility] ([facility] 5'6" Respiratory rate 14 /min 14 /min [facility] ( [facility] Heart rate 70 /min 70 /min [facility] ([facility] Body temperature 97.9 [degF] 97.9 [degF] [facility] ([facility] Diastolic blood pressure 52 mm[Hg] 52 mm[Hg] ALLEGRA ([facility] Systolic blood pressure 124 mm[Hg] 124 mm[Hg] M RICARDO ([facility] ID Date Data Source [id number] 07/14/2020 02:52:03 PM EST [facility] Center Name Value Range Interpretation Code Description Data Source(s) WEIGHT RECORDED 215.80 pounds 215.80 pounds [facility] Height 68 Inches 068 Inches [facility]
[2020-07-16 19:47] LABS: HEMATOCRIT 41.8 % (36.0-47.0); HEMOGLOBIN 13.6 g/dl (12.0-15.5); MEAN CORPUSCULAR HEMOGLOBIN 29.1 pg (27.0-33.0); MEAN CORPUSCULAR HGB CONC 32.5 g/dl (32.0-36.5); MEAN CORPUSCULAR VOLUME 89.5 fl (80.0-96.0); PLATELET COUNT, AUTOMATED 252 10^3/uL (150-450); RED BLOOD COUNT 4.67 10^6/uL (4.00-5.40); WHITE BLOOD COUNT 13.8 10^3/uL (4.0-10.0)
[2020-07-16 20:03] LABS: ALBUMIN 2.4 GM/DL (3.2-5.2); BILIRUBIN,TOTAL 0.7 MG/DL (0.2-1.0); CALCIUM LEVEL 8.2 MG/DL (8.8-10.2); CREATININE FOR GFR 1.39 MG/DL (0.55-1.30); GLOMERULAR FILTRATION RATE 39.3 (>39); POTASSIUM SERUM 3.4 MEQ/L (3.5-5.1); TOTAL PROTEIN 6.4 GM/DL (6.4-8.2)
[2020-07-16] MEDS: ACETAMINOPHEN 500 MG TAB PO PRN (20:30)
[2020-07-16] MEDS: ENOXAPARIN 40MG/0.4ML SYRINGE (J1650 PER 10MG) SC SCH (20:37)
[2020-07-16] MEDS ORDERED: ISOVUE-370 76% 100ML VIAL As Ordered ONE (22:18)
[2020-07-17 00:38] LABS: CK-MB VALUE MASS 5.7 NG/ML (<3.6); MB/CK RELATIVE INDEX 2.07 (< OR =4); TROPONIN I 0.04 NG/ML (< 0.10)
[2020-07-17] MEDS ORDERED: ENOXAPARIN 60MG/0.6ML SYRINGE (J1650 PER 10MG) SC ONE (01:45)
[2020-07-17 02:00] VITALS: BP 154/70
[2020-07-17] MEDS: ACETAMINOPHEN 500 MG TAB PO PRN ×2 (03:13→10:32)
[2020-07-17 06:10] VITALS: BP 191/93
[2020-07-17 07:51] LABS: HEMATOCRIT 41.8 % (36.0-47.0); HEMOGLOBIN 13.8 g/dl (12.0-15.5); MEAN CORPUSCULAR HEMOGLOBIN 29.4 pg (27.0-33.0); MEAN CORPUSCULAR VOLUME 89.1 fl (80.0-96.0); PLATELET COUNT, AUTOMATED 269 10^3/uL (150-450); RED BLOOD COUNT 4.69 10^6/uL (4.00-5.40)
[2020-07-17] MEDS ORDERED: hydrALAZINE 20MG/ML 1ML VIAL (J0360 PER 20MG) IV STA (07:52)
[2020-07-17 08:20] VITALS: BP 144/66
[2020-07-17 08:23] LABS: CALCIUM LEVEL 8.3 MG/DL (8.8-10.2); CREATININE FOR GFR 1.14 MG/DL (0.55-1.30); GLOMERULAR FILTRATION RATE 49.5 (>39); MB/CK RELATIVE INDEX 2.36 (< OR =4); POTASSIUM SERUM 3.3 MEQ/L (3.5-5.1); TROPONIN I 0.04 NG/ML (< 0.10)
[2020-07-17] MEDS ORDERED: PREVNAR 13 VACCINE SYRINGE IM ONE (09:00)
[2020-07-17] MEDS: HumaLOG INSULIN (NovoLOG) PER UNIT SC SCH ×4 (09:06→21:00)
[2020-07-17] MEDS ORDERED: POTASSIUM CHLORIDE 10 MEQ SR TABLET PO ONE (09:30)
[2020-07-17 12:00] VITALS: BP 119/59
[2020-07-17] MEDS ORDERED: ISOVUE-370 76% 100ML VIAL As Ordered ONE (12:10)
--- NOTE | 2020-07-17 16:55 | REP ---
INDICATION: hypoxia. COMPARISON: None. TECHNIQUE: Contrast dose: 75 ML of Isovue [address] technique: Helical scanning is acquired and overlapping 1.5 mm and contiguous 3 mm axial images are reformatted. In addition, maximum intensity projection and multiplanar re-formation images are generated in sagittal and coronal imaging projections. FINDINGS: There is good opacification in the pulmonary arterial tree. There is no evidence of vessel cut off or filling defect to suggest pulmonary embolus. Homogeneous opacity is seen in the thoracic aorta. There is no evidence of aneurysm or dissection. Lung window settings demonstrate extensive predominantly peripheral ground-glass opacity areas of consolidation consistent with extensive bilateral pneumonia involving upper and lower lobes. There is right middle lobe disease as well. No pleural or pericardial effusion is seen. The visualized upper abdominal structures are unremarkable. The gallbladder is surgically absent. No bony destructive lesion is seen. IMPRESSION: No CT evidence of pulmonary embolus. Extensive bilateral peripheral ground-glass opacity pneumonia upper and lower lobes. Commonly reported imaging features of COVID 19 pneumonia are present. Other processes such as influenza pneumonia, drug toxicity, and connective tissue disease can produce a similar pattern. This study was apparently acquired at 1:26 p.m.. It is presented to me for interpretation at 4:50 p.m.. The reason for this delay is unknown to me. <Electronically signed by Kofi Vázquez > 07/17/20 [id number]
[2020-07-17 16:59] LABS: CK-MB VALUE MASS 7.8 NG/ML (<3.6); MB/CK RELATIVE INDEX 3.29 (< OR =4); TROPONIN I 0.02 NG/ML (< 0.10)
--- NOTE | 2020-07-17 17:10 | IPNPDOC ---
Date Seen The patient was seen on 07/17/20. Progress Note SUBJECTIVE: 74-year-old female with a history of diabetes type 2, hyperlipidemia, hypertension, anxiety and depression was admitted to behavioral health unit on 07/14/2020. She had several episodes of hypoglycemia related to suspected overdose of CIBA. She has a history of recent covert infection, with 2 additional days remaining of her quarantine. Patient will hypoxia and was transferred to the covert [facility]. She also complained of some left-sided pleuritic back pain and a CT angiogram was ordered, which the patient had initially refused. Patient agreed to do the imaging this morning. Patient was seen and examined at bedside this morning. She is doing well. Continues to complain of left-sided PERRLA. Pleuritic chest pain radiating down to her left flank. Otherwise, she denies any shortness of breath, anterior or left-sided chest pain, palpitations, nausea, vomiting, diarrhea. She has mild shortness of breath or saturating well on a nonrebreather. OBJECTIVE PHYSICAL EXAMINATION: VITAL SIGNS: please see below General: NAD, comfortable HEENT: PERRLA, EOMI, sclerae clear Neck: supple, normal ROM, no JVD Respiratory: Fair air entry bilaterally, otherwise no crackles, no rales. No wheezing. CVS: RRR, normal S1, S2, no murmurs Abdo: soft, no masses, no hepatosplenomegaly, BS+, no rebound tenderness Extremities: no edema, pulses 2+ MSK: Mild left-sided CVA tenderness Neuro: no focal neuro deficits, moving all 4 extremities, CN2-12 intact. Strength 5/5 in all 4 extremities. No nystagmus. Psych: calm, cooperative, AAO x 3 LABORATORY DATA, IMAGING STUDIES, MICROBIOLOGY: Please see below. DVT prophylaxis ordered?: Lovenox ASSESSMENT AND PLAN: COVID-19 infection with hypoxia - patient developed symptoms approximately 8 days ago - hypoxic, on 13L NRB - denies SOB. - monitor inflammatory markers - pending CTA chesT - c/w lovenox 0.5 mg/kg q12 - dexamethasone - tessalon - combivent L back pain - pleuritic - given some mild L CVA tenderness will check UA - follow up CTA chest Hypokalemia - replete Suicidal ideation - reviewed Dr. Pardo's note from 07/16/20 - sertraline 50 mg qhs - patient is not actively suicidal and does not require a sitter - does not require return to the [facility] after medical clearance, unless she develops concerning psychiatric features such as repeat SI. DM2 with hypoglycemia - developed hypoglycemia after suspected tresiba overdose - c/w ISS. FSBS AC and HS - hypoglycemic precautions HTN - c/w meds HLD - c/w statin Dispo: pending clinical improvement. VS, I&O, 24H, Fishbone Vital Signs/I&O Vital Signs Date Time Temp Pulse Resp B/P (MAP) Pulse Ox O2 Delivery O2 Flow Rate FiO2 07/17/20 12:00 96.8 81 20 119/59 (79) 93 Non-Rebreather 12.0 I&O- Last 24 Hours up to 6 AM 07/17/20 06:00 Intake Total 600 ml Output Total 0 ml Balance 600 ml Laboratory Data 24H LABS Laboratory Tests 2 07/16/20 18:55: Nucleated Red Blood Cells % (auto) 0.0, Anion Gap 11, Glomerular Filtration Rate 39.3, Calcium Level 8.2L, Total Bilirubin 0.7, Aspartate Amino Transf (AST/SGOT) 80H, Alanine Aminotransferase (ALT/SGPT) 104H, Alkaline Phosphatase 95, Total Protein 6.4, Albumin 2.4L, Albumin/Globulin Ratio 0.6L 07/16/20 20:24: Bedside Glucose (Misc Panel) 194H 07/16/20 23:44: Total Creatine Kinase 276H, Creatine Kinase MB 5.7H, Creatine Kinase MB Relative Index 2.07, Troponin I 0.04 07/17/20 07:34: Nucleated Red Blood Cells % (auto) 0.0 07/17/20 07:35: Anion Gap 10, Glomerular Filtration Rate 49.5, Calcium Level 8.3L, Total Creatine Kinase 212H, Creatine Kinase MB 5.0H, Creatine Kinase MB Relative Index 2.36, Troponin I 0.04 07/17/20 07:50: Bedside Glucose (Misc Panel) 134H 07/17/20 15:14: CBC/BMP Laboratory Tests 07/16/20 18:55 07/17/20 07:34 07/17/20 07:35 JEFRY OSMAN MD Jul 17, 2020 17:10
[2020-07-17 21:47] VITALS: BP 158/88
[2020-07-17] MEDS: SERTRALINE HCL 50 MG TAB PO SCH (21:50)
[2020-07-17] MEDS: ENOXAPARIN 40MG/0.4ML SYRINGE (J1650 PER 10MG) SC SCH (21:50)
[2020-07-18] VITALS (7 sets, daily range): BP systolic 145–163; BP diastolic 62–86
[2020-07-18] MEDS: HumaLOG INSULIN (NovoLOG) PER UNIT SC SCH ×4 (07:30→21:00)
[2020-07-18 08:31] LABS: HEMATOCRIT 44.5 % (36.0-47.0); HEMOGLOBIN 14.7 g/dl (12.0-15.5); MEAN CORPUSCULAR HEMOGLOBIN 29.3 pg (27.0-33.0); MEAN CORPUSCULAR VOLUME 88.6 fl (80.0-96.0); PLATELET COUNT, AUTOMATED 300 10^3/uL (150-450); RED BLOOD COUNT 5.02 10^6/uL (4.00-5.40); WHITE BLOOD COUNT 12.4 10^3/uL (4.0-10.0)
[2020-07-18 08:39] LABS: BASO % 0.3 % (0.0-1.0); LYMPH # 0.6 10^3/uL (1.5-5.0); LYMPH % 4.9 % (24.0-44.0); MONO # 1.2 10^3/uL (0.0-0.8); MONO % 9.3 % (0.0-5.0); NEUTROPHILS # 10.4 10^3/uL (1.5-8.5); NEUTROPHILS % 84.4 % (36.0-66.0)
[2020-07-18 08:40] LABS: INR 1.04; PROTHROMBIN TIME 13.8 SECONDS (12.5-14.3)
[2020-07-18 08:41] LABS: PLATELET ESTIMATE NORMAL (NORMAL)
[2020-07-18 08:43] LABS: D-DIMER QUANT 2977.46 ng/ml (<500)
[2020-07-18 09:27] LABS: ALBUMIN 2.2 GM/DL (3.2-5.2); ALT/SGPT 144 U/L (12-78); BILIRUBIN,DIRECT 0.2 MG/DL (0.0-0.2); BILIRUBIN,TOTAL 0.6 MG/DL (0.2-1.0); BLOOD UREA NITROGEN 28 MG/DL (7-18); CALCIUM LEVEL 8.4 MG/DL (8.8-10.2); CARBON DIOXIDE LEVEL 25 MEQ/L (21-32); CHLORIDE LEVEL 100 MEQ/L (98-107); CPK CREATINE PHOSPHOKINASE 180 U/L (26-192); CREATININE FOR GFR 0.88 MG/DL (0.55-1.30); FERRITIN 2156 NG/ML (8-252); GLOMERULAR FILTRATION RATE > 60.0 (>39); GLUCOSE, FASTING 135 MG/DL (70-100); LDH LACTATE DEHYDROGENASE 552 U/L (84-246); SODIUM LEVEL 136 MEQ/L (136-145); TOTAL PROTEIN 6.2 GM/DL (6.4-8.2); TROPONIN I 0.04 NG/ML (< 0.10)
--- NOTE | 2020-07-18 11:03 | IPNPDOC ---
Date Seen The patient was seen on 07/18/20. Progress Note SUBJECTIVE: 74-year-old female with a history of diabetes type 2, hyperlipidemia, hypertension, anxiety and depression was admitted to behavioral health unit on 07/14/2020. She had several episodes of hypoglycemia related to suspected overdose of CIBA. She has a history of recent covert infection, with 2 additional days remaining of her quarantine. Patient will hypoxia and was transferred to the covert [facility]. She also complained of some left-sided pleuritic back pain and a CT angiogram was ordered, which the patient had initially refused. Patient agreed to do the imaging. CTA showed no PE. Patient was seen and examined at bedside this morning. Back pain has resolved. C ontinue to be SOB and tachycardic . BP 145/63. Low grade temp 99.1. OBJECTIVE PHYSICAL EXAMINATION: VITAL SIGNS: please see below General: NAD, comfortable HEENT: PERRLA, EOMI, sclerae clear Neck: supple, normal ROM, no JVD Respiratory: Fair air entry bilaterally, otherwise no crackles, no rales. No wheezing. CVS: RRR, normal S1, S2, no murmurs Abdo: soft, no masses, no hepatosplenomegaly, BS+, no rebound tenderness Extremities: no edema, pulses 2+ MSK: Mild left-sided CVA tenderness Neuro: no focal neuro deficits, moving all 4 extremities, CN2-12 intact. Strength 5/5 in all 4 extremities. No nystagmus. Psych: calm, cooperative, AAO x 3 LABORATORY DATA, IMAGING STUDIES, MICROBIOLOGY: Please see below. CTA chest (07/17/20): No CT evidence of pulmonary embolus. Extensive bilateral peripheral ground-glass opacity pneumonia upper and lower lobes. Commonly reported imaging features of COVID 19 pneumonia are present. Other processes such as influenza pneumonia, drug toxicity, and connective tissue disease can produce a similar pattern. Venous duplex bilateral (07/18/20): No evidence of deep venous thrombosis of the bilateral lower extremity femoral popliteal venous system. DVT prophylaxis ordered?: Lovenox ASSESSMENT AND PLAN: COVID-19 infection with hypoxia - patient developed symptoms approximately 8 days ago - hypoxic, on 13L NRB - denies SOB. - monitor inflammatory markers - pending CTA chesT - increase lovenox to 1 mg/kg q12h - dexamethasone - remdesivir (day 1) - start ceftriazone, azithromycin - check procal - tessalon - combivent Sepsis - HR 120 - check EKG - PVCs, prolonged QT - 48 hr tele - LA acid elevated - CTA negative for PE on 07/17/20 - check BL venous duplex for DVTs. - transfer to ICU - start ceftriazone, azithromycin Prolonged QTC - ok to continue sertraline given low risk of qtc prolongation - monitor EKGs - check Mg L back pain - pleuritic - given some mild L CVA tenderness will check UA - follow up CTA - negative for PE Hypokalemia - replete Suicidal ideation - reviewed Dr. Pardo's note from 07/16/20 - sertraline 50 mg qhs - patient is not actively suicidal and does not require a sitter - does not require return to the [facility] after medical clearance, unless she develops concerning psychiatric features such as repeat SI. DM2 with hypoglycemia - developed hypoglycemia after suspected tresiba overdose - c/w ISS. FSBS AC and HS - hypoglycemic precautions HTN - c/w meds HLD - c/w statin DVT ppx: increase lovenox to 1mg/KG given elevation in inflammatory markers, D dimer Dispo: pending clinical improvement. VS, I&O, 24H, Fishbone Vital Signs/I&O Vital Signs Date Time Temp Pulse Resp B/P (MAP) Pulse Ox O2 Delivery O2 Flow Rate FiO2 07/18/20 10:06 120 20 145/63 (90) 87 Non-Rebreather 12.0 07/18/20 04:00 99.1 I&O- Last 24 Hours up to 6 AM 07/18/20 06:00 Intake Total 520 ml Output Total 0 ml Balance 520 ml Laboratory Data 24H LABS Laboratory Tests 2 07/17/20 11:57: Bedside Glucose (Misc Panel) 168H 07/17/20 15:14: Total Creatine Kinase 237H, Creatine Kinase MB 7.8H, Creatine Kinase MB Relative Index 3.29, Troponin I 0.02# 07/17/20 17:15: Bedside Glucose (Misc Panel) 117H 07/17/20 17:57: D-Dimer, Quantitative 2791.76H 07/17/20 21:48: Bedside Glucose (Misc Panel) 142H 07/18/20 07:55: Immature Granulocyte % (Auto) 1.1, Neutrophils (%) (Auto) 84.4H, Lymphocytes (%) (Auto) 4.9L, Monocytes (%) (Auto) 9.3H, Eosinophils (%) (Auto) 0.0, Basophils (%) (Auto) 0.3, Neutrophils # (Auto) 10.4H, Lymphocytes # (Auto) 0.6L, Monocytes # (Auto) 1.2H, Eosinophils # (Auto) 0.0, Basophils # (Auto) 0.0, Immature Granulocyte # (Auto) 0.1H, Nucleated Red Blood Cells % (auto) 0.0, Platelet Estimate NORMAL, Prothrombin Time 13.8, Prothromb Time International Ratio 1.04, Activated Partial Thromboplast Time 36.0, Fibrinogen 1373H, D-Dimer, Quantitative 2977.46H, Anion Gap 11, Glomerular Filtration Rate > 60.0, Calcium Level 8.4L, Ferritin 2156H, Total Bilirubin 0.6, Direct Bilirubin 0.2, Aspartate Amino Transf (AST/SGOT) 120H, Alanine Aminotransferase (ALT/SGPT) 144H, Alkaline Phosphatase 101, Lactate Dehydrogenase 552H, Total Creatine Kinase 180, Troponin I 0.04#, C-Reactive Protein, Quantitative 18.60H, Total Protein 6.2L, Albumin 2.2L, Albumin/Globulin Ratio 0.6L CBC/BMP Laboratory Tests 07/18/20 07:55 JEFRY OSMAN MD Jul 18, 2020 11:03
[2020-07-18 11:37] LABS: FREE T4 1.49 NG/DL (0.76-1.46); THYROID STIMULATING HORMONE 0.166 uIU/ML (0.358-3.740)
[2020-07-18] MEDS: ACETAMINOPHEN 500 MG TAB PO PRN (13:51)
[2020-07-18] MEDS ORDERED: NS 1,000 ML IV ONE (14:15)
--- NOTE | 2020-07-18 15:27 | REP ---
INDICATION: r/o DVT COMPARISON: None. TECHNIQUE: Real time compression and duplex Doppler interrogation of the bilateral lower extremity deep venous system is performed. FINDINGS: Bilaterally, the common femoral, superficial femoral and popliteal veins are fully compressible with transducer pressure and demonstrate normal spontaneous and phasic flow, without evidence of deep venous thrombosis. IMPRESSION: No evidence of deep venous thrombosis of the bilateral lower extremity femoral popliteal venous system. <Electronically signed by Toi Crum > 07/18/20 [id number]
[2020-07-18] MEDS ORDERED: dexameTHASONE 20MG/5ML VIAL (J1100 PER 1MG) IV ONE (16:00)
[2020-07-18] MEDS ORDERED: REMDESIVIR 200 MG in NS 250 ML IV ONE (18:00)
[2020-07-18] MEDS: AZITHROMYCIN INJ 500 MG, VIAL MATE ADAPTER 1 EACH in D5W 250 ML IV SCH (18:25)
[2020-07-18] MEDS: dexameTHASONE 4 MG/ML 1ML VIAL (J1100 PER 1MG) IV SCH (18:25)
[2020-07-18] MEDS: cefTRIAXone SOD 2 GM in D5W MINI-BAG PLUS 50 ML IV SCH (19:34)
[2020-07-18] MEDS ORDERED: SODIUM CHLORIDE 0.9% INJ 10 ML SYR IV ONE (20:00)
[2020-07-18] MEDS: SERTRALINE HCL 50 MG TAB PO SCH (21:04)
[2020-07-18] MEDS: ENOXAPARIN 100MG/1ML SYRINGE (J1650 PER 10MG) SC SCH (21:13)
[2020-07-18] MEDS ORDERED: IPRATROPIUM 0.5MG/ALBUTEROL 2.5MG INH SOL UD 3ML (DUONEB) NEB PRN (23:30)
[2020-07-18] MEDS ORDERED: LORazepam 0.5 MG TAB PO ONE (23:45)
[2020-07-19] VITALS (9 sets, daily range): BP systolic 147–185; BP diastolic 60–85
[2020-07-19 04:37] LABS: HEMATOCRIT 42.4 % (36.0-47.0); HEMOGLOBIN 13.7 g/dl (12.0-15.5); MEAN CORPUSCULAR HGB CONC 32.3 g/dl (32.0-36.5); MEAN CORPUSCULAR VOLUME 89.6 fl (80.0-96.0); PLATELET COUNT, AUTOMATED 291 10^3/uL (150-450); RED BLOOD COUNT 4.73 10^6/uL (4.00-5.40); WHITE BLOOD COUNT 13.4 10^3/uL (4.0-10.0)
[2020-07-19 04:48] LABS: INR 1.12; PROTHROMBIN TIME 14.7 SECONDS (12.5-14.3)
[2020-07-19 04:49] LABS: PARTIAL THROMBOPLASTIN TIME 37.7 SECONDS (24.2-38.5)
[2020-07-19 04:51] LABS: D-DIMER QUANT 3116.68 ng/ml (<500)
[2020-07-19] MEDS ORDERED: QUINAPRIL 20 MG TAB PO ONE (05:00)
[2020-07-19 05:17] LABS: ALT/SGPT 143 U/L (12-78); BILIRUBIN,DIRECT 0.2 MG/DL (0.0-0.2); BILIRUBIN,TOTAL 0.4 MG/DL (0.2-1.0); BLOOD UREA NITROGEN 29 MG/DL (7-18); CALCIUM LEVEL 7.9 MG/DL (8.8-10.2); CARBON DIOXIDE LEVEL 26 MEQ/L (21-32); CHLORIDE LEVEL 103 MEQ/L (98-107); CPK CREATINE PHOSPHOKINASE 121 U/L (26-192); CREATININE FOR GFR 0.84 MG/DL (0.55-1.30); FERRITIN 1980 NG/ML (8-252); GLOMERULAR FILTRATION RATE > 60.0 (>39); GLUCOSE, FASTING 223 MG/DL (70-100); LDH LACTATE DEHYDROGENASE 576 U/L (84-246); POTASSIUM SERUM 4.5 MEQ/L (3.5-5.1); SODIUM LEVEL 137 MEQ/L (136-145); TROPONIN I 0.02 NG/ML (< 0.10)
[2020-07-19] MEDS: bisoproloL fumarate 5 MG TAB PO SCH (07:40)
[2020-07-19] MEDS: DOXAZOSIN MESYLATE 4 MG TAB PO SCH (07:42)
[2020-07-19] MEDS: ENOXAPARIN 100MG/1ML SYRINGE (J1650 PER 10MG) SC SCH ×2 (07:43→19:41)
[2020-07-19] MEDS: HumaLOG INSULIN (NovoLOG) PER UNIT SC SCH ×4 (09:43→19:54)
[2020-07-19] MEDS: OMEPRAZOLE 20 MG CAP PO SCH (10:36)
--- NOTE | 2020-07-19 11:01 | IPNPDOC ---
Subjective Date Seen The patient was seen on 07/19/20. Subjective Chief Complaint/HPI Patient was agitated and restless last night pulling off CPAP, and other medical equipment. At that time she expressed suicidal ideas. She expressed that she did not want the CPAP, did not want to be resuscitated. She wanted to be DNR and DNI. Her oxygen saturation had gone down to 20s when she pulled off her CPAP. Now she has a sitter and is calmer and she is keeping her CPAP on with oxygen saturations in 95%. I asked her about Resuscitation and ventilation. She indicated that she wanted to be resuscitated and put on a ventilator if needed. She denied any suicidal thoughts or ideas this morning. Code status is Full code. I believe she was delirious and encephalopathic from hypoxia/ COVID adn hospitalization last night. Will keep the sitter in place for now. She refused breakfast this morning. Says does not have any appetite but would like to have some juices. Objective Physical Examination General Exam: Positive: Alert, Cooperative Eye Exam: Positive: PERRLA, Conjunctiva & lids normal, EOMI; Negative: Sclera icteric ENT Exam: Positive: Atraumatic, Mucous membr. moist/pink, Pharynx Normal Neck Exam: Positive: Supple; Negative: JVD, thyromegaly Chest Exam: Positive: Diminished, Other (crackles at [place]) Heart Exam: Positive: Rate Normal, Regular Rhythm, Normal S1, Normal S2; Negative: Murmurs, Rubs Abdomen Exam: Positive: Normal bowel sounds, Soft; Negative: Tenderness, Hepatospenomegaly Extremity Exam: Negative: Clubbing, Cyanosis, Edema Neuro Exam: Positive: Normal Speech, Strength at 5/5 X4 ext, Normal Tone Psych Exam: Positive: Oriented x 3 Assessment /Plan Assessment 74-year-old female with a history of diabetes type 2, hyperlipidemia, hypertension, anxiety and depression was initially admitted in medicine for hypoglycemia after a suicidal attempt with Tresiba insulin overdose. She was then discharged on the 07/15/20 to [facility] for suicidal ideations. She had a history of recent COVID infection, with 2 additional days remaining of her quarantine so was transferred back to medicine from [facility]. She was cleared by Psychiatry stand point and as per them she did not need any sitter , she was depressed but not suicidal anymore. She also complained of some left-sided pleuritic back pain and a CT angiogram done did not show any pulmonary embolism. Did show Extensive bilateral peripheral ground-glass opacity pneumonia upper and lower lobes. Commonly reported imaging features of COVID 19 pneumonia are present. Other pr ocesses such as influenza pneumonia, drug toxicity, and connective tissue disease can produce a similar pattern. She started becoming hypoxic on 07/16/20 which continued to worsen and subsequently she was moved to ICU on 07/18/20 for CPAP support. COVID-19 infection with acute respiratory failure with hypoxia - On CPAP - monitor inflammatory markers - Procal 0.38 - On lovenox to 1 mg/kg q12h - dexamethasone - remdesivir (day 2) - ceftriazone, azithromycin - tessalon - Duonebs. Acute metabolic encephalopathy/ delirium from hypoxia and COVID infection and hospitalization She has expressed suicidal ideas when she was hypoxic will keep sitter in place. Sepsis - may have underlying secondary bacterial PNA - blood cultures pending. - ceftriazone, azithromycin Prolonged QTC - ok to continue sertraline given low risk of qtc prolongation - monitor EKGs - Echo done Hypokalemia - repleted Suicidal ideation - reviewed Dr. Pardo's note from 07/16/20 - sertraline 50 mg qhs - patient is not actively suicidal at present however is intermittently expressing suicidal thoughts when she is hypoxic. - As per Dr Pardo does not require return to the [facility] after medical clearance, unless she develops concerning psychiatric features such as repeat SI. As she is having intermittent suicidal thoughts would likely need to be reevaluated by psychiatry after she is medically better. Will continue with sitter. DM2 with hypoglycemia - developed hypoglycemia after suspected tresiba overdose - c/w ISS. FSBS AC and HS - hypoglycemic precautions HTN - c/w quinapril, doxazocin, bisoprolol, HCTZ HLD - c/w statin GErD - PPI DVT ppx: increased lovenox to 1mg/KG given elevation in inflammatory markers, D dimer Plan/VTE VTE Prophylaxis Ordered?: Yes VS, I&O, 24H, Fishbone Vital Signs/I&O Vital Signs Date Time Temp Pulse Resp B/P (MAP) Pulse Ox O2 Delivery O2 Flow Rate FiO2 07/19/20 04:00 98.1 87 35 174/80 (111) 95 NIPPV (BIPAP/CPAP) 100 07/18/20 14:45 40.0 I&O- Last 24 Hours up to 6 AM 07/19/20 06:00 Intake Total 425 ml Output Total 200 ml Balance 225 ml Laboratory Data 24H LABS Laboratory Tests 2 07/18/20 07:55: Immature Granulocyte % (Auto) 1.1, Neutrophils (%) (Auto) 84.4H, Lymphocytes (%) (Auto) 4.9L, Monocytes (%) (Auto) 9.3H, Eosinophils (%) (Auto) 0.0, Basophils (%) (Auto) 0.3, Neutrophils # (Auto) 10.4H, Lymphocytes # (Auto) 0.6L, Monocytes # (Auto) 1.2H, Eosinophils # (Auto) 0.0, Basophils # (Auto) 0.0, Immature Granulocyte # (Auto) 0.1H, Nucleated Red Blood Cells % (auto) 0.0, Platelet Estimate NORMAL, Prothrombin Time 13.8, Prothromb Time International Ratio 1.04, Activated Partial Thromboplast Time 36.0, Fibrinogen 1373H, D-Dimer, Quantitative 2977.46H, Anion Gap 11, Glomerular Filtration Rate > 60.0, Calcium Level 8.4L, Ferritin 2156H, Total Bilirubin 0.6, Direct Bilirubin 0.2, Aspartate Amino Transf (AST/SGOT) 120H, Alanine Aminotransferase (ALT/SGPT) 144H, Alkaline Phosphatase 101, Lactate Dehydrogenase 552H, Total Creatine Kinase 180, Troponin I 0.04#, C-Reactive Protein, Quantitative 18.60H, Total Protein 6.2L, Albumin 2.2L, Albumin/Globulin Ratio 0.6L, Thyroid Stimulating Hormone (TSH) 0.166L, Free Thyroxine 1.49H 07/18/20 11:42: Bedside Glucose (Misc Panel) 148H 07/18/20 12:35: Troponin I 0.05#, Lactic Acid Level 2.2*H 07/18/20 16:30: Magnesium Level 2.2, Procalcitonin 0.38 07/18/20 16:53: Bedside Glucose (Misc Panel) 148H 07/18/20 18:34: Lactic Acid Level 1.5 07/18/20 20:55: Bedside Glucose (Misc Panel) 205H 07/19/20 04:26: Nucleated Red Blood Cells % (auto) 0.0, Prothrombin Time 14.7H, Prothromb Time International Ratio 1.12, Activated Partial Thromboplast Time 37.7, Fibrinogen 1171H, D-Dimer, Quantitative 3116.68H, Anion Gap 8, Glomerular Filtration Rate > 60.0, Calcium Level 7.9L, Ferritin 1980H, Total Bilirubin 0.4, Direct Bilirubin 0.2, Aspartate Amino Transf (AST/SGOT) 100H, Alanine Aminotransferase (ALT/SGPT) 143H, Alkaline Phosphatase 103, Lactate Dehydrogenase 576H, Total Creatine Kinase 121, Troponin I 0.02#, C-Reactive Protein, Quantitative 15.10H, Total Protein 6.0L, Albumin 2.0L, Albumin/Globulin Ratio 0.5L CBC/BMP Laboratory Tests 07/18/20 07:55 07/19/20 04:26 Microbiology Microbiology 07/18/20 Blood Culture, Received Pending 07/18/20 Blood Culture, Received Pending AMANDA ROGERS MD Jul 19, 2020 07:35
--- NOTE | 2020-07-19 12:32 | ECGEPIP ---
[facility] Test Date: 2020-07-18 Pat Name: SID NAVARRETE Department: Room: [place] [address] Gender: Female Box Chipper: PITO : [id number] Requested By: JEFRY OSMAN Order Number: [id number] Reading MD: Chilo Hanna Measurements Intervals [place] Rate: 117 P: 32 SC: 124 QRS: -38 QRSD: 120 T: 119 QT: 396 QTc: 552 Interpretive Statements Multifocal atrial tachycardia Isolated PVC Left axis deviation Left bundle branch block Faster rate but otherwise not significant change from 07/13/20 Electronically Signed on 07-19-2020 12:31:39 EST by Chilo Hanna
[2020-07-19] MEDS: cefTRIAXone SOD 2 GM in D5W MINI-BAG PLUS 50 ML IV SCH (15:52)
[2020-07-19] MEDS: AZITHROMYCIN INJ 500 MG, VIAL MATE ADAPTER 1 EACH in D5W 250 ML IV SCH (16:42)
[2020-07-19] MEDS: ACETAMINOPHEN 500 MG TAB PO PRN ×2 (16:53→23:20)
[2020-07-19] MEDS: dexameTHASONE 4 MG/ML 1ML VIAL (J1100 PER 1MG) IV SCH (16:53)
[2020-07-19] MEDS: REMDESIVIR 100 MG in NS 250 ML IV SCH (18:04)
[2020-07-19] MEDS: SODIUM CHLORIDE 0.9% INJ 10 ML SYR IV SCH (18:47)
[2020-07-19] MEDS: ATORVASTATIN 20 MG TAB PO SCH (19:41)
[2020-07-19] MEDS: SERTRALINE HCL 50 MG TAB PO SCH (19:41)
[2020-07-20] VITALS (8 sets, daily range): BP systolic 119–162; BP diastolic 50–76
[2020-07-20 05:15] LABS: HEMATOCRIT 39.7 % (36.0-47.0); MEAN CORPUSCULAR HEMOGLOBIN 29.3 pg (27.0-33.0); MEAN CORPUSCULAR HGB CONC 32.7 g/dl (32.0-36.5); MEAN CORPUSCULAR VOLUME 89.6 fl (80.0-96.0); PLATELET COUNT, AUTOMATED 244 10^3/uL (150-450); RED BLOOD COUNT 4.43 10^6/uL (4.00-5.40); WHITE BLOOD COUNT 17.7 10^3/uL (4.0-10.0)
[2020-07-20 05:41] LABS: INR 1.37; PROTHROMBIN TIME 17.2 SECONDS (12.5-14.3)
[2020-07-20 05:42] LABS: PARTIAL THROMBOPLASTIN TIME 42.2 SECONDS (24.2-38.5)
[2020-07-20 05:44] LABS: D-DIMER QUANT 1916.54 ng/ml (<500)
[2020-07-20 05:48] LABS: ALBUMIN 1.8 GM/DL (3.2-5.2); ALT/SGPT 96 U/L (12-78); BILIRUBIN,DIRECT 0.2 MG/DL (0.0-0.2); BILIRUBIN,TOTAL 0.4 MG/DL (0.2-1.0); BLOOD UREA NITROGEN 38 MG/DL (7-18); CALCIUM LEVEL 8.1 MG/DL (8.8-10.2); CARBON DIOXIDE LEVEL 30 MEQ/L (21-32); CHLORIDE LEVEL 104 MEQ/L (98-107); CPK CREATINE PHOSPHOKINASE 108 U/L (26-192); FERRITIN 1624 NG/ML (8-252); GLOMERULAR FILTRATION RATE > 60.0 (>39); GLUCOSE, FASTING 177 MG/DL (70-100); LDH LACTATE DEHYDROGENASE 801 U/L (84-246); POTASSIUM SERUM 4.5 MEQ/L (3.5-5.1); SODIUM LEVEL 138 MEQ/L (136-145); TOTAL PROTEIN 5.7 GM/DL (6.4-8.2); TROPONIN I < 0.02 NG/ML (< 0.10)
[2020-07-20] MEDS: ACETAMINOPHEN 500 MG TAB PO PRN ×3 (06:16→17:31)
[2020-07-20] MEDS: OMEPRAZOLE 20 MG CAP PO SCH (08:50)
[2020-07-20] MEDS: QUINAPRIL 20 MG TAB PO SCH (08:51)
[2020-07-20] MEDS: ENOXAPARIN 100MG/1ML SYRINGE (J1650 PER 10MG) SC SCH ×2 (08:52→20:03)
[2020-07-20] MEDS: DOXAZOSIN MESYLATE 4 MG TAB PO SCH (08:52)
[2020-07-20] MEDS: bisoproloL fumarate 5 MG TAB PO SCH (08:52)
[2020-07-20] MEDS: HumaLOG INSULIN (NovoLOG) PER UNIT SC SCH ×4 (09:35→20:11)
--- NOTE | 2020-07-20 12:35 | IPNPDOC ---
Subjective Date Seen The patient was seen on 07/20/20. Subjective Chief Complaint/HPI Complains of left hip pain going down the thigh. Denies any SOB or chest pain. Patient comfortable with the CPAP. No delirium or encephalopathy today. No suicidal thoughts or ideas today. She is calm and cooperative says feels better. Objective Physical Examination General Exam: Positive: Alert, Cooperative Eye Exam: Positive: PERRLA, Conjunctiva & lids normal, EOMI; Negative: Sclera icteric ENT Exam: Positive: Atraumatic, Mucous membr. moist/pink, Pharynx Normal Neck Exam: Positive: Supple; Negative: JVD, thyromegaly Chest Exam: Positive: Diminished, Other (crackles at bilaterally.) Heart Exam: Positive: Rate Normal, Regular Rhythm, Normal S1, Normal S2; Negative: Murmurs, Rubs Abdomen Exam: Positive: Normal bowel sounds, Soft; Negative: Tenderness, Hepatospenomegaly Extremity Exam: Negative: Clubbing, Cyanosis, Edema Neuro Exam: Positive: Normal Speech, Strength at 5/5 X4 ext, Normal Tone Psych Exam: Positive: Oriented x 3 Assessment /Plan Assessment 74-year-old female with a history of diabetes type 2, hyperlipidemia, hypertension, anxiety and depression was initially admitted in medicine for hypoglycemia after a suicidal attempt with Tresiba insulin overdose. She was then discharged on the 07/15/20 to [facility] for suicidal ideations. She had a history of recent COVID infection, with 2 additional days remaining of her quarantine so was transferred back to medicine from [facility]. She was cleared by Psychiatry stand point and as per them she did not need any sitter , she was depressed but not suicidal anymore. She also complained of some left-sided pleuritic back pain and a CT angiogram done did not show any pulmonary embolism. Did show Extensive bilateral peripheral ground-glass opacity pneumonia upper and lower lobes. Commonly reported imaging features of COVID 19 pneumonia are present. Other processes such as influenza pneumonia, drug toxicity, and connective tissue disease can produce a similar pattern. She started becoming hypoxic on 07/16/20 which continued to worsen and subsequently she was moved to ICU on 07/18/20 for CPAP support. COVID-19 infection with acute respiratory failure with hypoxia - On CPAP - monitor inflammatory markers - Procal 0.38 - On lovenox to 1 mg/kg q12h - dexamethasone - remdesivir (day 3) - ceftriazone, azithromycin - tessalon - Duonebs. Acute metabolic encephalopathy/ delirium from hypoxia and COVID infection and hospitalization She has expressed suicidal ideas when she was hypoxic, No no hypoxia. N suicidal thoughts. Sepsis - may have underlying secondary bacterial PNA - blood cultures pending. - ceftriazone, azithromycin Prolonged QTC - ok to continue sertraline given low risk of qtc prolongation - monitor EKGs - Echo done, result not yet available. Hypokalemia - repleted Suicidal ideation - reviewed Dr. Pardo's note from 07/16/20 - sertraline 50 mg qhs - patient is not actively suicidal at present however is intermittently expressing suicidal thoughts when she is hypoxic. - As per Dr Pardo does not require return to the [facility] after medical clearance, unless she develops concerning psychiatric features such as repeat SI. She had suicidal thoughts on 07/19/20 again but none today. She was also hypoxic and agitated and delirious then when she expressed suicidal ideas. -Today no suicidal ideas will dc sitter DM2 with hypoglycemia - developed hypoglycemia after suspected tresiba overdose - c/w ISS. FSBS AC and HS - hypoglycemic precautions HTN - c/w quinapril, doxazocin, bisoprolol, HCTZ HLD - c/w statin GERD - PPI DVT ppx: lovenox to 1mg/KG given elevation in inflammatory markers, D dimer Plan/VTE VTE Prophylaxis Ordered?: Yes VS, I&O, 24H, [facility] Vital Signs/I&O Vital Signs Date Time Temp Pulse Resp B/P (MAP) Pulse Ox O2 Delivery O2 Flow Rate FiO2 07/20/20 10:00 97.6 63 30 119/51 (73) 94 NIPPV (BIPAP/CPAP) 100 07/19/20 08:00 40.0 I&O- Last 24 Hours up to 6 AM 07/20/20 06:00 Intake Total 1675 ml Output Total 300 ml Balance 1375 ml Laboratory Data 24H LABS Laboratory Tests 2 07/19/20 16:44: Bedside Glucose (Misc Panel) 243H 07/19/20 19:51: Bedside Glucose (Misc Panel) 215H 07/20/20 05:05: Nucleated Red Blood Cells % (auto) 0.0, Prothrombin Time 17.2H, Prothromb Time International Ratio 1.37, Activated Partial Thromboplast Time 42.2H, Fibrinogen 860H, D-Dimer, Quantitative 1916.54H, Anion Gap 4L, Glomerular Filtration Rate > 60.0, Calcium Level 8.1L, Ferritin 1624H, Total Bilirubin 0.4, Direct Bilirubin 0.2, Aspartate Amino Transf (AST/SGOT) 68H, Alanine Aminotransferase (ALT/SGPT) 96H, Alkaline Phosphatase 114, Lactate Dehydrogenase 801H, Total Creatine Kinase 108, Troponin I < 0.02, C-Reactive Protein, Quantitative 16.10H, Total Protein 5.7L, Albumin 1.8L, Albumin/Globulin Ratio 0.5L 07/20/20 08:48: Bedside Glucose (Misc Panel) 148H CBC/BMP Laboratory Tests 07/20/20 05:05 Microbiology Microbiology 07/18/20 Blood Culture - Preliminary, Resulted No growth after 24 hours . All specim... 07/18/20 Blood Culture - Preliminary, Resulted No growth after 24 hours . All specim... AMANDA ROGERS MD Jul 20, 2020 12:35
[2020-07-20] MEDS: DICLOFENAC EPOLAMINE 1.3 % PATCH TOP SCH ×2 (12:43→20:03)
[2020-07-20] MEDS: traMADol 50 MG TAB PO PRN (13:49)
[2020-07-20] MEDS: cefTRIAXone SOD 2 GM in D5W MINI-BAG PLUS 50 ML IV SCH (15:27)
[2020-07-20] MEDS: AZITHROMYCIN INJ 500 MG, VIAL MATE ADAPTER 1 EACH in D5W 250 ML IV SCH (16:00)
[2020-07-20] MEDS: dexameTHASONE 4 MG/ML 1ML VIAL (J1100 PER 1MG) IV SCH (16:01)
[2020-07-20] MEDS: REMDESIVIR 100 MG in NS 250 ML IV SCH (17:34)
[2020-07-20] MEDS: SODIUM CHLORIDE 0.9% INJ 10 ML SYR IV SCH (18:40)
[2020-07-20] MEDS: SERTRALINE HCL 50 MG TAB PO SCH (20:02)
[2020-07-20] MEDS: ATORVASTATIN 20 MG TAB PO SCH (20:02)
[2020-07-21] VITALS (10 sets, daily range): BP systolic 122–186; BP diastolic 57–83
[2020-07-21] MEDS: ACETAMINOPHEN 500 MG TAB PO PRN ×3 (01:16→21:11)
[2020-07-21] MEDS: traMADol 50 MG TAB PO PRN (04:24)
[2020-07-21 05:00] LABS: HEMATOCRIT 40.4 % (36.0-47.0); HEMOGLOBIN 13.2 g/dl (12.0-15.5); MEAN CORPUSCULAR HEMOGLOBIN 29.3 pg (27.0-33.0); MEAN CORPUSCULAR HGB CONC 32.7 g/dl (32.0-36.5); MEAN CORPUSCULAR VOLUME 89.8 fl (80.0-96.0); PLATELET COUNT, AUTOMATED 245 10^3/uL (150-450); WHITE BLOOD COUNT 18.4 10^3/uL (4.0-10.0)
[2020-07-21 05:14] LABS: INR 1.46; PROTHROMBIN TIME 18.1 SECONDS (12.5-14.3)
[2020-07-21 05:15] LABS: PARTIAL THROMBOPLASTIN TIME 43.5 SECONDS (24.2-38.5)
[2020-07-21 05:17] LABS: D-DIMER QUANT 1932.28 ng/ml (<500)
[2020-07-21 05:40] LABS: ALBUMIN 1.7 GM/DL (3.2-5.2); ALT/SGPT 73 U/L (12-78); BILIRUBIN,DIRECT 0.2 MG/DL (0.0-0.2); BILIRUBIN,TOTAL 0.4 MG/DL (0.2-1.0); BLOOD UREA NITROGEN 37 MG/DL (7-18); CALCIUM LEVEL 7.8 MG/DL (8.8-10.2); CARBON DIOXIDE LEVEL 28 MEQ/L (21-32); CHLORIDE LEVEL 102 MEQ/L (98-107); CPK CREATINE PHOSPHOKINASE 165 U/L (26-192); CREATININE FOR GFR 0.96 MG/DL (0.55-1.30); FERRITIN 1506 NG/ML (8-252); GLOMERULAR FILTRATION RATE > 60.0 (>39); GLUCOSE, FASTING 183 MG/DL (70-100); LDH LACTATE DEHYDROGENASE 712 U/L (84-246); POTASSIUM SERUM 4.2 MEQ/L (3.5-5.1); SODIUM LEVEL 139 MEQ/L (136-145); TOTAL PROTEIN 5.6 GM/DL (6.4-8.2); TROPONIN I < 0.02 NG/ML (< 0.10)
[2020-07-21] MEDS: ANALGESIC BALM CRM 120 GM TOP PRN (09:23)
[2020-07-21] MEDS: HumaLOG INSULIN (NovoLOG) PER UNIT SC SCH ×4 (09:23→20:30)
[2020-07-21] MEDS: DICLOFENAC EPOLAMINE 1.3 % PATCH TOP SCH ×2 (09:24→21:11)
[2020-07-21] MEDS: DOXAZOSIN MESYLATE 4 MG TAB PO SCH (09:24)
[2020-07-21] MEDS: ENOXAPARIN 100MG/1ML SYRINGE (J1650 PER 10MG) SC SCH ×2 (09:24→21:10)
[2020-07-21] MEDS: QUINAPRIL 20 MG TAB PO SCH (09:25)
[2020-07-21] MEDS: OMEPRAZOLE 20 MG CAP PO SCH (09:25)
[2020-07-21] MEDS: bisoproloL fumarate 5 MG TAB PO SCH (09:26)
--- NOTE | 2020-07-21 10:35 | IPNPDOC ---
Text Note Date of Service The patient was seen on 07/21/20. NOTE Subjective: Patient is a 74-year-old female with a PMHx of DM2, DLP, HTN, Anxiety / Depression who was initially admitted in medicine for hypoglycemia after a suicidal attempt with Tresiba insulin overdose. She was then discharged on the 07/15/20 to [facility] for suicidal ideations. She had a history of recent COVID infection, with 2 additional days remaining of her quarantine so was transferred back to medicine from [facility]. She was cleared by Psychiatry and as per them she did not need any sitter, she was depressed but not suicidal anymore. She also complained of some left-sided pleuritic back pain and a CT angiogram done did not show any pulmonary embolism. Did show Extensive bilateral peripheral ground-glass opacity pneumonia upper and lower lobes. Commonly reported imaging features of COVID 19 pneumonia are present. Other processes such as influenza pneumonia, drug toxicity, and connective tissue disease can produce a similar pattern. She started becoming hypoxic on 07/16/20 which continued to worsen and subsequently she was moved to ICU on 07/18/20 for CPAP support. Patient was seen and examined at the bedside. Currently patient is seen with a BiPAP mask in place. Denies any chest pain or palpitations. Reports that she does experience a nonproductive cough. Denies any nausea, vomiting, abdominal pain or diarrhea. Objective: Vitals (See below) General: Lying in bed, appears comfortable, AAOx3 HEENT: NC, AT, CPAP mask in place CVS: +S1S2 Lungs: Diminished bilaterally without any appreciated, rhonchi, crackles or wheezing Abdomen: Soft, ND, NT Extremities: - Edema, - Calf tenderness Assessment and plan: Acute hypoxic respiratory failure - likely 2/2 COVID19 pneumonia; possibly 2/2 superimposed bacterial infection - Currently on CPAP - Inflammatory markers up trending - COVID19 positive on 07/14/2020 - c/w Dexamethasone (Day #4) - c/w Remdesivir (Day #4) - c/w Antibiotics (See below); Will trend procalcitonin - c/w Tessalon - Will start Mucinex / Incentive spirometry / Acapella Sepsis - possibly 2/2 underlying secondary bacterial PNA - Blood cultures 07/18: Negative at 48 hours - c/w Ceftriaxone and Azithromycin (Antibiotic day #4) s/p Acute metabolic encephalopathy / Possible delirium - likely 2/2 hypoxia and COVID infection and hospitalization - Has expressed suicidal ideas when she was hypoxic - No current suicidal thoughts Prolonged QTC - Will check EKG for QTC - ECHO compete; report pending s/p Hypokalemia Suicidal ideation - Was cleared by Psychiatry; not actively suicidal at present - c/w Sertraline - s/p Beside sitter DM2 with hypoglycemia - developed hypoglycemia after suspected tresiba overdose - c/w ISS HTN - BP well controlled - c/w quinapril, Doxazosin, Bisoprolol, HCTZ DLP - c/w Atorvastatin GI prophylaxis - c/w Omeprazole DVT prophylaxis - c/w Lovenox; weight-based therapeutic dosing VS,Fishbone, I+O VS, Fishbone, I+O Laboratory Tests 07/21/20 04:33 Vital Signs Date Time Temp Pulse Resp B/P (MAP) Pulse Ox O2 Delivery O2 Flow Rate FiO2 07/21/20 09:26 75 186/83 07/21/20 08:02 100 07/21/20 04:54 24 07/21/20 04:21 97.1 91 NIPPV (BIPAP/CPAP) 07/19/20 08:00 40.0 I&O- Last 24 Hours up to 6 AM 07/21/20 06:00 Intake Total 1325 ml Output Total 500 ml Balance 825 ml HOWIE GUY MD Jul 21, 2020 10:35
--- NOTE | 2020-07-21 11:12 | REP ---
INDICATION: Hypoxia. COMPARISON: Comparison CT study of the chest is from 17 July 2020. TECHNIQUE: Portable upright AP chest radiograph. FINDINGS: Monitoring electrodes are visible. Heart size is borderline. Extensive interstitial lung disease is seen essentially diffusely in the right lung with some patchy areas of increased density in the right base. On the left there is focal infiltrate in the left base and diffuse interstitial disease elsewhere. The disease appears somewhat less patchy and more extensive than on the July 17, 2020 study. No evidence of pleural effusion. No acute bony abnormality.. IMPRESSION: Bilateral extensive interstitial infiltrates and diffuse interstitial disease. Most pronounced in the left base.. <Electronically signed by Kofi Vázquez > 07/21/20 [id number]
[2020-07-21] MEDS: guaiFENesin ER 600 MG TAB PO SCH ×2 (13:19→21:11)
[2020-07-21] MEDS: cefTRIAXone SOD 2 GM in D5W MINI-BAG PLUS 50 ML IV SCH (16:46)
[2020-07-21] MEDS: dexameTHASONE 4 MG/ML 1ML VIAL (J1100 PER 1MG) IV SCH (16:47)
[2020-07-21] MEDS: AZITHROMYCIN INJ 500 MG, VIAL MATE ADAPTER 1 EACH in D5W 250 ML IV SCH (16:47)
[2020-07-21] MEDS: REMDESIVIR 100 MG in NS 250 ML IV SCH (18:19)
[2020-07-21] MEDS: SODIUM CHLORIDE 0.9% INJ 10 ML SYR IV SCH (18:20)
[2020-07-21] MEDS: SERTRALINE HCL 50 MG TAB PO SCH (21:10)
[2020-07-21] MEDS: ATORVASTATIN 20 MG TAB PO SCH (21:10)
[2020-07-22] VITALS (9 sets, daily range): BP systolic 95–160; BP diastolic 52–72
[2020-07-22] MEDS: ACETAMINOPHEN 500 MG TAB PO PRN ×2 (04:34→12:49)
[2020-07-22 05:21] LABS: HEMATOCRIT 40.2 % (36.0-47.0); MEAN CORPUSCULAR HEMOGLOBIN 28.8 pg (27.0-33.0); MEAN CORPUSCULAR HGB CONC 32.3 g/dl (32.0-36.5); MEAN CORPUSCULAR VOLUME 88.9 fl (80.0-96.0); PLATELET COUNT, AUTOMATED 231 10^3/uL (150-450); RED BLOOD COUNT 4.52 10^6/uL (4.00-5.40); WHITE BLOOD COUNT 17.2 10^3/uL (4.0-10.0)
[2020-07-22 05:42] LABS: BLOOD UREA NITROGEN 43 MG/DL (7-18); CALCIUM LEVEL 8.1 MG/DL (8.8-10.2); CARBON DIOXIDE LEVEL 26 MEQ/L (21-32); CHLORIDE LEVEL 104 MEQ/L (98-107); CREATININE FOR GFR 0.89 MG/DL (0.55-1.30); GLOMERULAR FILTRATION RATE > 60.0 (>39); GLUCOSE, FASTING 200 MG/DL (70-100); POTASSIUM SERUM 4.6 MEQ/L (3.5-5.1); SODIUM LEVEL 138 MEQ/L (136-145)
[2020-07-22 07:35] LABS: D-DIMER QUANT 1998.06 ng/ml (<500)
--- NOTE | 2020-07-22 07:56 | ECGEPIP ---
[facility] Test Date: 2020-07-21 Pat Name: SID NAVARRETE Department: Room: [place] [address] Gender: Female Experience Designer: PITO : [id number] Requested By: HOWIE GUY Order Number: [id number] Reading MD: Curt Weaver Measurements Intervals [place] Rate: 67 P: 18 NC: 126 QRS: -26 QRSD: 124 T: 105 QT: 478 QTc: 505 Interpretive Statements Normal sinus rhythm Left bundle branch block Prolonged QTc interval decreased from tracing done 07-18-20 Baseline artifact Rate decreased from tracing done 07-18-20 Electronically Signed on 07-22-2020 7:56:40 EST by Curt Weaver
[2020-07-22 08:34] LABS: ALBUMIN 1.5 GM/DL (3.2-5.2); ALT/SGPT 56 U/L (12-78); BILIRUBIN,DIRECT 0.1 MG/DL (0.0-0.2); BILIRUBIN,TOTAL 0.3 MG/DL (0.2-1.0); FERRITIN 1355 NG/ML (8-252); TOTAL PROTEIN 6.1 GM/DL (6.4-8.2)
[2020-07-22] MEDS: HumaLOG INSULIN (NovoLOG) PER UNIT SC SCH ×4 (08:58→20:54)
[2020-07-22] MEDS: ENOXAPARIN 100MG/1ML SYRINGE (J1650 PER 10MG) SC SCH ×2 (08:58→20:54)
[2020-07-22] MEDS: OMEPRAZOLE 20 MG CAP PO SCH (08:59)
[2020-07-22] MEDS: QUINAPRIL 20 MG TAB PO SCH (08:59)
[2020-07-22] MEDS: DOXAZOSIN MESYLATE 4 MG TAB PO SCH (09:00)
[2020-07-22] MEDS: bisoproloL fumarate 5 MG TAB PO SCH (09:00)
[2020-07-22] MEDS: guaiFENesin ER 600 MG TAB PO SCH ×2 (09:00→20:54)
[2020-07-22] MEDS: DICLOFENAC EPOLAMINE 1.3 % PATCH TOP SCH ×2 (09:01→20:55)
--- NOTE | 2020-07-22 11:39 | IPNPDOC ---
Text Note Date of Service The patient was seen on 07/22/20. NOTE Subjective: Patient is a 74-year-old female with a PMHx of DM2, DLP, HTN, Anxiety / Depression who was initially admitted in medicine for hypoglycemia after a suicidal attempt with Tresiba insulin overdose. She was then discharged on the 07/15/20 to [facility] for suicidal ideations. She had a history of recent COVID infection, with 2 additional days remaining of her quarantine so was transferred back to medicine from [facility]. She was cleared by Psychiatry and as per them she did not need any sitter, she was depressed but not suicidal anymore. She also complained of some left-sided pleuritic back pain and a CT angiogram done did not show any pulmonary embolism. Did show Extensive bilateral peripheral ground-glass opacity pneumonia upper and lower lobes. Commonly reported imaging features of COVID 19 pneumonia are present. Other processes such as influenza pneumonia, drug toxicity, and connective tissue disease can produce a similar pattern. She started becoming hypoxic on 07/16/20 which continued to worsen and subsequently she was moved to ICU on 07/18/20 for CPAP support. Patient was seen and examined at the bedside. Patient is seen with CPAP mask in place. She denies any chest pain, palpitations. Reports no significant shortness of breath. Has not experience any cough. No nausea, vomiting, abdominal pain, diarrhea. Patient is a Salvador catheter in place. Objective: Vitals (See below) General: Patient is laying in bed, appears to be comfortable, not in acute distress, is awake, alert and oriented 3 HEENT: NC, AT, CPAP mask remains in place CVS: +S1S2 Lungs: Air entry is fair bilaterally without any auscultated rhonchi, crackles or wheezing Abdomen: Soft, nondistended and nontender Extremities: Lower extremities are without any edema, - Calf tenderness Assessment and plan: Acute hypoxic respiratory failure - likely 2/2 COVID19 pneumonia; possibly 2/2 superimposed bacterial infection - Currently on CPAP; will attempt to transition to Vapotherm therapy throughout the day today - Inflammatory markers have shown improvement this morning - COVID19 positive on 07/14/2020 - c/w Dexamethasone (Day #5) - c/w Remdesivir (Day #5) - c/w Antibiotics (See below); Will trend procalcitonin - c/w Tessalon / Mucinex / Incentive spirometry / Acapella - c/w Ceftriaxone and Azithromycin (Antibiotic day #5) Blood cultures (1 of 2) positive - likely 2/2 contaminant - Remains hemodynamically stable and afebrile - Blood cultures 2/5: (1 of 2): Gram-positive cocci in clusters - Will repeat blood cultures s/p Acute metabolic encephalopathy / Possible delirium - likely 2/2 hypoxia and COVID infection and hospitalization - Has expressed suicidal ideas when she was hypoxic - No current suicidal thoughts Prolonged QTC - EKG reveals QTc of 505 - ECHO compete; report pending s/p Hypokalemia Suicidal ideation - Was cleared by Psychiatry; not actively suicidal at present - c/w Sertraline - s/p Beside sitter DM2 with hypoglycemia - developed hypoglycemia after suspected tresiba overdose - c/w ISS HTN - BP moderately elevated - c/w quinapril, Doxazosin, Bisoprolol, HCTZ DLP - c/w Atorvastatin GI prophylaxis - c/w Omeprazole DVT prophylaxis - c/w Lovenox; weight-based therapeutic dosing Disposition: - Awaiting clinical improvement VS,Dahlia, I+O VS, Dahlia, I+O Laboratory Tests 07/22/20 05:12 Vital Signs Date Time Temp Pulse Resp B/P (MAP) Pulse Ox O2 Delivery O2 Flow Rate FiO2 07/22/20 09:00 160/72 07/22/20 09:00 67 07/22/20 08:00 100 07/22/20 08:00 96.9 07/22/20 04:08 30 94 NIPPV (BIPAP/CPAP) 07/21/20 14:00 40.0 I&O- Last 24 Hours up to 6 AM 07/22/20 06:00 Intake Total 2030 ml Output Total 1430 ml Balance 600 ml HOWIE GUY MD Jul 22, 2020 11:39
[2020-07-22] MEDS: traMADol 50 MG TAB PO PRN ×2 (12:53→22:51)
--- NOTE | 2020-07-22 13:02 | ECHO ---
DATE OF PROCEDURE: 07/18/2020 Age: 74 Gender: Female Height: 68 inches Weight: 216 pounds Body surface area: 2.11 m2 PATIENT LOCATION: Inpatient [address] [place] [address], Room 4207. REFERRING PHYSICIAN: Arnold Braun MD INDICATION: Dyspnea. MEASUREMENTS: 2D Measurements: RV 3.4 cm LV 4.5 cm Septum 1.4 cm Posterior wall 1.4 cm Aortic Root 3.3 cm LA 3.9 cm LVEF 75% Doppler Measurements: AV 1.23 m/s LVOT 0.8 m/s LVOT diameter 1.8 cm MV-E 48, A 95, E/A ratio 0.5 Early mitral deceleration time 235 msec E prime medial 5.9, A prime medial 11, E prime lateral 5.4 Average E/E prime ratio 8.5/PCWP 14.2 mmHg PV 0.85 m/s Pulmonary artery acceleration time 82 msec RVSP 41-45 mmHg IVC 1.8 cm COMMENTS: Sinus arrhythmia versus sinus rhythm with PACs and left bundle branch block. Somewhat technically challenging study in light of the patients body habitus, but diagnostically useful information was still obtained. M-mode and two-dimensional echocardiography was performed with pulse, continuous wave, color flow, and tissue Doppler studies. Moderate concentric left ventricular hypertrophy with distal septal wall motion abnormality suspected to be due to her left bundle branch block, yet preserved global resting systolic function. Borderline left atrial enlargement with grade 1 LV diastolic dysfunction, but currently normal estimated mean left atrial pressure. Right heart chamber sizes were upper limits of normal with normal right ventricular free wall motion with Doppler evidence of moderate pulmonary hypertension. Normal IVC size and collapse against an elevated central venous pressure. Normal aortic dimensions. Moderate aortic valvular sclerosis without functional valvular abnormality. Normal aortic dimensions. Moderate mitral annular calcification without inflow tract obstruction and no more than trace mitral insufficiency. Normal appearing tricuspid valve with very mild insufficiency. Small posterior pericardial effusion measuring 0.5 cm without evidence of cardiac chamber compression. No apparent intracardiac mass. MTDD
[2020-07-22] MEDS: cefTRIAXone SOD 2 GM in D5W MINI-BAG PLUS 50 ML IV SCH (16:31)
[2020-07-22] MEDS: dexameTHASONE 4 MG/ML 1ML VIAL (J1100 PER 1MG) IV SCH (16:32)
[2020-07-22] MEDS: AZITHROMYCIN INJ 500 MG, VIAL MATE ADAPTER 1 EACH in D5W 250 ML IV SCH (16:32)
[2020-07-22] MEDS: REMDESIVIR 100 MG in NS 250 ML IV SCH (17:37)
[2020-07-22] MEDS: SODIUM CHLORIDE 0.9% INJ 10 ML SYR IV SCH (17:37)
[2020-07-22] MEDS: SERTRALINE HCL 50 MG TAB PO SCH (20:54)
[2020-07-22] MEDS: ATORVASTATIN 20 MG TAB PO SCH (20:54)
[2020-07-22] MEDS: ANALGESIC BALM CRM 120 GM TOP PRN (23:59)
[2020-07-23] VITALS (8 sets, daily range): BP systolic 120–159; BP diastolic 55–74
[2020-07-23 04:57] LABS: HEMATOCRIT 39.6 % (36.0-47.0); HEMOGLOBIN 12.8 g/dl (12.0-15.5); MEAN CORPUSCULAR HGB CONC 32.3 g/dl (32.0-36.5); MEAN CORPUSCULAR VOLUME 89.8 fl (80.0-96.0); PLATELET COUNT, AUTOMATED 238 10^3/uL (150-450); RED BLOOD COUNT 4.41 10^6/uL (4.00-5.40); WHITE BLOOD COUNT 16.2 10^3/uL (4.0-10.0)
[2020-07-23 05:25] LABS: BLOOD UREA NITROGEN 46 MG/DL (7-18); CALCIUM LEVEL 7.9 MG/DL (8.8-10.2); CARBON DIOXIDE LEVEL 29 MEQ/L (21-32); CHLORIDE LEVEL 103 MEQ/L (98-107); CREATININE FOR GFR 0.94 MG/DL (0.55-1.30); GLOMERULAR FILTRATION RATE > 60.0 (>39); GLUCOSE, FASTING 223 MG/DL (70-100); POTASSIUM SERUM 4.8 MEQ/L (3.5-5.1); SODIUM LEVEL 140 MEQ/L (136-145)
[2020-07-23 07:32] LABS: FERRITIN 1331 NG/ML (8-252)
[2020-07-23 07:51] LABS: D-DIMER QUANT 2275.89 ng/ml (<500)
[2020-07-23] MEDS: OMEPRAZOLE 20 MG CAP PO SCH (08:12)
[2020-07-23] MEDS: bisoproloL fumarate 5 MG TAB PO SCH (08:13)
[2020-07-23] MEDS: QUINAPRIL 20 MG TAB PO SCH (08:13)
[2020-07-23] MEDS: guaiFENesin ER 600 MG TAB PO SCH ×2 (08:13→19:57)
[2020-07-23] MEDS: ENOXAPARIN 100MG/1ML SYRINGE (J1650 PER 10MG) SC SCH ×2 (08:14→19:57)
[2020-07-23] MEDS: DICLOFENAC EPOLAMINE 1.3 % PATCH TOP SCH ×2 (08:14→19:56)
[2020-07-23] MEDS: traMADol 50 MG TAB PO PRN ×2 (09:37→14:45)
[2020-07-23] MEDS: HumaLOG INSULIN (NovoLOG) PER UNIT SC SCH ×4 (09:38→19:56)
--- NOTE | 2020-07-23 10:52 | IPNPDOC ---
Text Note Date of Service The patient was seen on 07/23/20. NOTE Subjective: Patient is a 74-year-old female with a PMHx of DM2, DLP, HTN, Anxiety / Depression who was initially admitted in medicine for hypoglycemia after a suicidal attempt with Tresiba insulin overdose. She was then discharged on the 07/15/20 to [facility] for suicidal ideations. She had a history of recent COVID infection, with 2 additional days remaining of her quarantine so was transferred back to medicine from [facility]. She was cleared by Psychiatry and as per them she did not need any sitter, she was depressed but not suicidal anymore. She also complained of some left-sided pleuritic back pain and a CT angiogram done did not show any pulmonary embolism. Did show Extensive bilateral peripheral ground-glass opacity pneumonia upper and lower lobes. Commonly reported imaging features of COVID 19 pneumonia are present. Other processes such as influenza pneumonia, drug toxicity, and connective tissue disease can produce a similar pattern. She started becoming hypoxic on 07/16/20 which continued to worsen and subsequently she was moved to ICU on 07/18/20 for CPAP support. Patient was seen and examined at the bedside. Patient is seen with CPAP mask in place. She denies any chest pain, palpitations. Reports no significant shortness of breath. Has not experience any cough. No nausea, vomiting, abdominal pain, diarrhea. Patient is a Salvador catheter in place. Objective: Vitals (See below) General: Patient appears to be resting comfortably while laying in bed, does not appear to be in any distress, is awake, alert and oriented 3 HEENT: NC, AT, CPAP is again seen in place CVS: +S1S2 Lungs: There appears to be fair air entry bilaterally without any auscultated wheezing, crackles or rhonchi Abdomen: Abdomen remains soft without distention or tenderness Extremities: No edema appreciated, - Calf tenderness Assessment and plan: Acute hypoxic respiratory failure - likely 2/2 COVID19 pneumonia; possibly 2/2 superimposed bacterial infection - Currently on CPAP - FIO2 requirement has improved - Inflammatory markers trending down - COVID19 positive on 07/14/2020 - c/w Dexamethasone (Day #6) - c/w Remdesivir (Day #6) - c/w Ceftriaxone and Azithromycin (Antibiotic day #6); Procalcitonin with slight elevation - c/w Tessalon / Mucinex / Incentive spirometry / Acapella Blood cultures (1 of 2) positive - likely 2/2 contaminant - Hemodynamically stable and afebrile - Inflammatory markers improving - Blood cultures 07/18: (1 of 2): Gram-positive cocci in clusters - Blood cultures 07/22: Pending s/p Acute metabolic encephalopathy / Possible delirium - likely 2/2 hypoxia and COVID infection and hospitalization Prolonged QTC - EKG reveals QTc of 505 - ECHO compete 07/18: Grade 1 DD s/p Hypokalemia s/p Suicidal ideation - Was cleared by Psychiatry; not actively suicidal at present - s/p Beside sitter - c/w Sertraline DM2 with hypoglycemia - s/p hypoglycemia after suspected Tresiba overdose - c/w ISS HTN - BP well controlled - c/w Quinapril, Doxazosin, Bisoprolol, HCTZ DLP - c/w Atorvastatin GI prophylaxis - c/w Omeprazole DVT prophylaxis - c/w Lovenox; weight-based therapeutic dosing Disposition: - Awaiting clinical improvement VSDahlia I+O VS, Dahlia I+O Laboratory Tests 07/23/20 04:48 Vital Signs Date Time Temp Pulse Resp B/P (MAP) Pulse Ox O2 Delivery O2 Flow Rate FiO2 07/23/20 10:07 24 07/23/20 08:13 68 122/55 07/23/20 08:00 95.8 93 NIPPV (BIPAP/CPAP) 85 07/22/20 13:23 40.0 I&O- Last 24 Hours up to 6 AM 07/23/20 06:00 Intake Total 1995 ml Output Total 1075 ml Balance 920 ml HOWIE GUY MD Jul 23, 2020 10:52
[2020-07-23] MEDS: ACETAMINOPHEN 500 MG TAB PO PRN (10:55)
[2020-07-23] MEDS: ANALGESIC BALM CRM 120 GM TOP PRN (13:24)
[2020-07-23] MEDS ORDERED: LORazepam 2 MG/ML VIAL As Ordered ONE (14:35)
[2020-07-23] MEDS: LORazepam 2 MG/ML VIAL IV PRN (14:49)
[2020-07-23] MEDS: cefTRIAXone SOD 2 GM in D5W MINI-BAG PLUS 50 ML IV SCH (17:04)
[2020-07-23] MEDS: dexameTHASONE 4 MG/ML 1ML VIAL (J1100 PER 1MG) IV SCH (17:04)
[2020-07-23] MEDS: AZITHROMYCIN INJ 500 MG, VIAL MATE ADAPTER 1 EACH in D5W 250 ML IV SCH (17:34)
[2020-07-23] MEDS: REMDESIVIR 100 MG in NS 250 ML IV SCH (18:00)
[2020-07-23] MEDS: ATORVASTATIN 20 MG TAB PO SCH (19:57)
[2020-07-23] MEDS: SERTRALINE HCL 50 MG TAB PO SCH (19:57)
[2020-07-24] VITALS (12 sets, daily range): BP systolic 120–193; BP diastolic 56–84
[2020-07-24] MEDS: HumaLOG INSULIN (NovoLOG) PER UNIT SC SCH ×4 (07:30→20:12)
[2020-07-24] MEDS: ENOXAPARIN 100MG/1ML SYRINGE (J1650 PER 10MG) SC SCH ×2 (08:38→20:13)
[2020-07-24] MEDS: OMEPRAZOLE 20 MG CAP PO SCH (08:38)
[2020-07-24] MEDS: guaiFENesin ER 600 MG TAB PO SCH ×2 (08:39→20:13)
[2020-07-24] MEDS: bisoproloL fumarate 5 MG TAB PO SCH (08:39)
[2020-07-24] MEDS: ACETAMINOPHEN 500 MG TAB PO PRN (08:39)
[2020-07-24] MEDS: DICLOFENAC EPOLAMINE 1.3 % PATCH TOP SCH ×2 (08:40→20:13)
[2020-07-24] MEDS: QUINAPRIL 20 MG TAB PO SCH (08:40)
[2020-07-24 10:09] LABS: BASO % 0.2 % (0.0-1.0); HEMATOCRIT 39.9 % (36.0-47.0); HEMOGLOBIN 12.9 g/dl (12.0-15.5); LYMPH # 0.3 10^3/uL (1.5-5.0); LYMPH % 1.7 % (24.0-44.0); MEAN CORPUSCULAR HEMOGLOBIN 29.4 pg (27.0-33.0); MEAN CORPUSCULAR HGB CONC 32.3 g/dl (32.0-36.5); MEAN CORPUSCULAR VOLUME 90.9 fl (80.0-96.0); MONO # 0.4 10^3/uL (0.0-0.8); MONO % 2.2 % (0.0-5.0); NEUTROPHILS # 18.2 10^3/uL (1.5-8.5); PLATELET COUNT, AUTOMATED 236 10^3/uL (150-450); RED BLOOD COUNT 4.39 10^6/uL (4.00-5.40); WHITE BLOOD COUNT 19.2 10^3/uL (4.0-10.0)
[2020-07-24 10:22] LABS: D-DIMER QUANT 3548.91 ng/ml (<500)
[2020-07-24 10:38] LABS: ALBUMIN 1.5 GM/DL (3.2-5.2); ALT/SGPT 52 U/L (12-78); BILIRUBIN,TOTAL 0.4 MG/DL (0.2-1.0); BLOOD UREA NITROGEN 36 MG/DL (7-18); CARBON DIOXIDE LEVEL 31 MEQ/L (21-32); CHLORIDE LEVEL 103 MEQ/L (98-107); CREATININE FOR GFR 0.78 MG/DL (0.55-1.30); FERRITIN 1163 NG/ML (8-252); GLOMERULAR FILTRATION RATE > 60.0 (>39); GLUCOSE, FASTING 219 MG/DL (70-100); POTASSIUM SERUM 5.6 MEQ/L (3.5-5.1); SODIUM LEVEL 140 MEQ/L (136-145); TOTAL PROTEIN 5.6 GM/DL (6.4-8.2)
--- NOTE | 2020-07-24 12:26 | IPNPDOC ---
Text Note Date of Service The patient was seen on 07/24/20. NOTE Subjective: Patient is a 74-year-old female with a PMHx of DM2, DLP, HTN, Anxiety / Depression who was initially admitted in medicine for hypoglycemia after a suicidal attempt with Tresiba insulin overdose. She was then discharged on the 07/15/20 to [facility] for suicidal ideations. She had a history of recent COVID infection, with 2 additional days remaining of her quarantine so was transferred back to medicine from [facility]. She was cleared by Psychiatry and as per them she did not need any sitter, she was depressed but not suicidal anymore. She also complained of some left-sided pleuritic back pain and a CT angiogram done did not show any pulmonary embolism. Did show Extensive bilateral peripheral ground-glass opacity pneumonia upper and lower lobes. Commonly reported imaging features of COVID 19 pneumonia are present. Other processes such as influenza pneumonia, drug toxicity, and connective tissue disease can produce a similar pattern. She started becoming hypoxic on 07/16/20 which continued to worsen and subsequently she was moved to ICU on 07/18/20 for CPAP support. Patient was seen and examined at the bedside. Patient denies any chest pain, palpitations, nausea, has had some difficulty this morning and had an adjustment to her CPAP. Has not experience any abdominal pain or diarrhea. Salvador catheter again is seen in place. Objective: Vitals (See below) General: Patient is laying on her side, does not appear to be in any distress, is oriented to person, place and time HEENT: Normocephalic and atraumatic with CPAP mask noted CVS: +S1S2 Lungs: Air entry appears to be fair bilaterally without rhonchi, crackles or wheezing Abdomen: Soft, obese without any appreciated tenderness or distention Extremities: No edema is appreciated at lower extremities, - Calf tenderness Assessment and plan: Acute hypoxic respiratory failure - likely 2/2 COVID19 pneumonia; possibly 2/2 superimposed bacterial infection - CPAP, remains in place and FiO2 requirement has been variable - Patient is a vomiting or markers continue to improve - COVID19 positive on 07/14/2020 - c/w Dexamethasone (Day #7) - c/w Remdesivir (Day #7) - c/w Ceftriaxone and Azithromycin (Antibiotic day #7); Will repeat p rocalcitonin - c/w Tessalon / Mucinex / Incentive spirometry / Acapella Blood cultures (1 of 2) positive - likely 2/2 contaminant 07/15 Micrococcus luteus - Hemodynamically stable and afebrile - Inflammatory markers improving - Blood cultures 07/18: (1 of 2): Micrococcus luteus - Blood cultures 07/22: Negative at 48 hours s/p Acute metabolic encephalopathy / Possible delirium - likely 2/2 hypoxia and COVID infection and hospitalization Prolonged QTC - EKG reveals QTc of 505 - ECHO compete 07/18: Grade 1 DD s/p Hypokalemia s/p Suicidal ideation - Was cleared by Psychiatry; not actively suicidal at present - s/p Beside sitter - c/w Sertraline DM2 with hypoglycemia - s/p hypoglycemia after suspected Tresiba overdose - c/w ISS HTN - BP well controlled - c/w Quinapril, Doxazosin, Bisoprolol, HCTZ DLP - c/w Atorvastatin GI prophylaxis - c/w Omeprazole DVT prophylaxis - D-dimers are trending up - c/w Lovenox; weight-based therapeutic dosing Disposition: - Awaiting clinical improvement VS,Dahlia, I+O VSDahlia I+O Laboratory Tests 07/24/20 09:54 Vital Signs Date Time Temp Pulse Resp B/P (MAP) Pulse Ox O2 Delivery O2 Flow Rate FiO2 07/24/20 08:39 90 193/84 07/24/20 08:00 100 07/24/20 08:00 97.0 40 96 NIPPV (BIPAP/CPAP) 07/22/20 13:23 40.0 I&O- Last 24 Hours up to 6 AM 07/24/20 05:59 Intake Total 1570 ml Output Total 1335 ml Balance 235 ml HOWIE GUY MD Jul 24, 2020 12:26
[2020-07-24] MEDS: ANALGESIC BALM CRM 120 GM TOP PRN (12:35)
[2020-07-24] MEDS: cefTRIAXone SOD 2 GM in D5W MINI-BAG PLUS 50 ML IV SCH (15:53)
[2020-07-24] MEDS: dexameTHASONE 4 MG/ML 1ML VIAL (J1100 PER 1MG) IV SCH (17:06)
[2020-07-24] MEDS: AZITHROMYCIN INJ 500 MG, VIAL MATE ADAPTER 1 EACH in D5W 250 ML IV SCH (17:06)
[2020-07-24] MEDS: traMADol 50 MG TAB PO PRN (17:59)
[2020-07-24] MEDS: REMDESIVIR 100 MG in NS 250 ML IV SCH (18:51)
[2020-07-24] MEDS ORDERED: LORazepam 2 MG/ML VIAL As Ordered ONE (20:00)
[2020-07-24] MEDS: LORazepam 2 MG/ML VIAL IV PRN (20:13)
[2020-07-24] MEDS: ATORVASTATIN 20 MG TAB PO SCH (20:13)
[2020-07-24] MEDS: SERTRALINE HCL 50 MG TAB PO SCH (20:13)
[2020-07-25] VITALS (9 sets, daily range): BP systolic 137–159; BP diastolic 62–70; O2SAT 92
[2020-07-25 05:06] LABS: HEMATOCRIT 39.7 % (36.0-47.0); MEAN CORPUSCULAR HEMOGLOBIN 29.3 pg (27.0-33.0); MEAN CORPUSCULAR HGB CONC 32.7 g/dl (32.0-36.5); MEAN CORPUSCULAR VOLUME 89.6 fl (80.0-96.0); PLATELET COUNT, AUTOMATED 209 10^3/uL (150-450); RED BLOOD COUNT 4.43 10^6/uL (4.00-5.40)
[2020-07-25 05:28] LABS: BLOOD UREA NITROGEN 31 MG/DL (7-18); CALCIUM LEVEL 7.8 MG/DL (8.8-10.2); CARBON DIOXIDE LEVEL 28 MEQ/L (21-32); CHLORIDE LEVEL 106 MEQ/L (98-107); CREATININE FOR GFR 0.78 MG/DL (0.55-1.30); GLOMERULAR FILTRATION RATE > 60.0 (>39); GLUCOSE, FASTING 218 MG/DL (70-100); POTASSIUM SERUM 5.7 MEQ/L (3.5-5.1); SODIUM LEVEL 141 MEQ/L (136-145)
[2020-07-25] MEDS ORDERED: SOD POLYSTYRENE SULFONATE SUSP 15 GM/60 ML UD PO ONE (06:15)
[2020-07-25 07:16] LABS: FIBRINOGEN 740 MG/DL (221-452)
[2020-07-25 07:35] LABS: D-DIMER QUANT > 4000 ng/ml (<500)
[2020-07-25 07:49] LABS: C REACTIVE PROTEIN QUANTITATIV 15.6 MG/DL (0.00-0.30)
[2020-07-25] MEDS: HumaLOG INSULIN (NovoLOG) PER UNIT SC SCH ×4 (08:54→20:36)
[2020-07-25] MEDS: ENOXAPARIN 100MG/1ML SYRINGE (J1650 PER 10MG) SC SCH ×2 (08:56→20:34)
[2020-07-25] MEDS: DICLOFENAC EPOLAMINE 1.3 % PATCH TOP SCH ×2 (08:56→20:35)
[2020-07-25] MEDS: bisoproloL fumarate 5 MG TAB PO SCH (08:57)
[2020-07-25] MEDS: QUINAPRIL 20 MG TAB PO SCH (08:57)
[2020-07-25] MEDS: OMEPRAZOLE 20 MG CAP PO SCH (08:57)
[2020-07-25] MEDS: guaiFENesin ER 600 MG TAB PO SCH ×2 (08:57→20:34)
[2020-07-25] MEDS: LORazepam 2 MG/ML VIAL IV PRN ×2 (11:36→20:30)
--- NOTE | 2020-07-25 15:16 | IPNPDOC ---
Text Note Date of Service The patient was seen on 07/25/20. NOTE Subjective: Patient is a 74-year-old female with a PMHx of DM2, DLP, HTN, Anxiety / Depression who was initially admitted in medicine for hypoglycemia after a suicidal attempt with Tresiba insulin overdose. She was then discharged on the 07/15/20 to [facility] for suicidal ideations. She had a history of recent COVID infection, with 2 additional days remaining of her quarantine so was transferred back to medicine from [facility]. She was cleared by Psychiatry and as per them she did not need any sitter, she was depressed but not suicidal anymore. She also complained of some left-sided pleuritic back pain and a CT angiogram done did not show any pulmonary embolism. Did show Extensive bilateral peripheral ground-glass opacity pneumonia upper and lower lobes. Commonly reported imaging features of COVID 19 pneumonia are present. Other processes such as influenza pneumonia, drug toxicity, and connective tissue disease can produce a similar pattern. She started becoming hypoxic on 07/16/20 which continued to worsen and subsequently she was moved to ICU on 07/18/20 for CPAP support. Patient was seen and examined at the bedside. Patient does not appear to be in any acute distress, reports that her breathing is relatively okay. Denies any significant cough. Denies chest pain. Experience nausea, vomiting, abdominal pain. Objective: Vitals (See below) General: Patient is laying on her back, appears to be comfortable, is awake, alert, oriented 3 HEENT: CPAP mask is seen in place CVS: +S1S2 Lungs: Auscultation appears to be fair bilaterally without any evidence of rhonchi, crackles or wheezing Abdomen: Abdomen remains soft. There is no rigidity, rebound, tenderness or distention Extremities: No edema noted Assessment and plan: Acute hypoxic respiratory failure - likely 2/2 COVID19 pneumonia; possibly 2/2 superimposed bacterial infection - Patient has been unable to wean down from CPAP yesterday; remains on 100% FiO2 today - Inflammatory markers have increased today - COVID19 positive on 07/14/2020 - c/w Dexamethasone (Day #8) - c/w Remdesivir (Day #8) - Will discontinue Ceftriaxone and Azithromycin (Compelted a duration of 7 days); PCT had trended down - c/w Tessalon / Mucinex / Incentive spirometry / Acapella Blood cultures (1 of 2) positive - likely 2/2 contaminant 2/ Micrococcus luteus - Hemodynamically stable / Afebrile - Inflammatory markers improving - Blood cultures 07/18: (1 of 2): Micrococcus luteus - Blood cultures 07/22: Negative at 72 hours s/p Acute metabolic encephalopathy / Possible delirium - likely 2/2 hypoxia and COVID19 infection and hospitalization Prolonged QTC - EKG reveals QTc of 505 - ECHO compete 07/18: Grade 1 DD s/p Hypokalemia s/p Suicidal ideation - Was cleared by Psychiatry; not actively suicidal at present - s/p Beside sitter - c/w Sertraline DM2 with hypoglycemia - s/p hypoglycemia after suspected Tresiba overdose - c/w ISS HTN - BP well controlled - c/w Quinapril, Doxazosin, Bisoprolol, HCTZ DLP - c/w Atorvastatin GI prophylaxis - c/w Omeprazole DVT prophylaxis - D-dimers are trending up - c/w Lovenox; weight-based therapeutic dosing Disposition: - Awaiting clinical improvement Code status: - DNR / DNI - Poor prognosis VS,Dahlia, I+O VS, Dahlia, I+O Laboratory Tests 07/25/20 04:53 Vital Signs Date Time Temp Pulse Resp B/P (MAP) Pulse Ox O2 Delivery O2 Flow Rate FiO2 07/25/20 14:00 97.8 90 34 92 NIPPV (BIPAP/CPAP) 100 07/25/20 12:00 140/68 (92) 07/22/20 13:23 40.0 I&O- Last 24 Hours up to 6 AM 07/25/20 05:59 Intake Total 955 ml Output Total 1075 ml Balance -120 ml HOWIE GUY MD Jul 25, 2020 15:16
[2020-07-25] MEDS: traMADol 50 MG TAB PO PRN (16:07)
[2020-07-25] MEDS: dexameTHASONE 4 MG/ML 1ML VIAL (J1100 PER 1MG) IV SCH (16:52)
[2020-07-25] MEDS: REMDESIVIR 100 MG in NS 250 ML IV SCH (17:47)
[2020-07-25] MEDS: SERTRALINE HCL 50 MG TAB PO SCH (20:34)
[2020-07-25] MEDS: ATORVASTATIN 20 MG TAB PO SCH (20:34)
[2020-07-26] VITALS (13 sets, daily range): BP systolic 100–172; BP diastolic 51–76; O2SAT 85–90
[2020-07-26 04:27] LABS: BASO % 0.1 % (0.0-1.0); HEMATOCRIT 40.6 % (36.0-47.0); HEMOGLOBIN 12.8 g/dl (12.0-15.5); LYMPH # 0.4 10^3/uL (1.5-5.0); LYMPH % 2.4 % (24.0-44.0); MEAN CORPUSCULAR HEMOGLOBIN 28.8 pg (27.0-33.0); MEAN CORPUSCULAR HGB CONC 31.5 g/dl (32.0-36.5); MEAN CORPUSCULAR VOLUME 91.2 fl (80.0-96.0); MONO # 0.3 10^3/uL (0.0-0.8); MONO % 1.9 % (2.0-8.0); NEUTROPHILS # 14.4 10^3/uL (1.5-8.5); PLATELET COUNT, AUTOMATED 225 10^3/uL (150-450); RED BLOOD COUNT 4.45 10^6/uL (4.00-5.40); WHITE BLOOD COUNT 15.2 10^3/uL (4.0-10.0)
[2020-07-26 04:38] LABS: FIBRINOGEN 707 MG/DL (221-452)
[2020-07-26 05:15] LABS: BLOOD UREA NITROGEN 32 MG/DL (7-18); CALCIUM LEVEL 7.9 MG/DL (8.8-10.2); CARBON DIOXIDE LEVEL 34 MEQ/L (21-32); CHLORIDE LEVEL 106 MEQ/L (98-107); CREATININE FOR GFR 0.72 MG/DL (0.55-1.30); FERRITIN 1408 NG/ML (8-252); GLOMERULAR FILTRATION RATE > 60.0 (>39); GLUCOSE, FASTING 257 MG/DL (70-100); POTASSIUM SERUM 5.3 MEQ/L (3.5-5.1); SODIUM LEVEL 143 MEQ/L (136-145)
[2020-07-26 05:31] LABS: D-DIMER QUANT > 4000 ng/ml (<500)
[2020-07-26 08:25] LABS: NT-PRO BNP 729 PG/ML (<450)
[2020-07-26] MEDS: HumaLOG INSULIN (NovoLOG) PER UNIT SC SCH ×4 (08:26→20:25)
[2020-07-26] MEDS: bisoproloL fumarate 5 MG TAB PO SCH (08:27)
--- NOTE | 2020-07-26 08:27 | REP ---
INDICATION: Hypoxia. COMPARISON: Comparison is made with chest CT from July 17, 2020 and portable chest x-ray from July 21, 2020. TECHNIQUE: Semi-erect portable AP radiograph.. FINDINGS: There is progressive mixed alveolar and interstitial opacification of the lung roque bilaterally, now severe. Air bronchograms are noted bilaterally. There is no evidence of free pleural effusion. Left heart border is obscured. There is a skin fold overlying the right heart border. Monitoring electrodes are seen.. IMPRESSION: Progressive, now severe diffuse alveolar and interstitial opacification of the lung roque bilaterally.. <Electronically signed by Kofi Váqzuez > 07/26/20 0875
[2020-07-26] MEDS: guaiFENesin ER 600 MG TAB PO SCH ×2 (08:28→20:12)
[2020-07-26] MEDS: ENOXAPARIN 100MG/1ML SYRINGE (J1650 PER 10MG) SC SCH ×2 (08:28→20:13)
[2020-07-26] MEDS: QUINAPRIL 20 MG TAB PO SCH (08:28)
[2020-07-26] MEDS: OMEPRAZOLE 20 MG CAP PO SCH (08:29)
[2020-07-26] MEDS: DICLOFENAC EPOLAMINE 1.3 % PATCH TOP SCH ×2 (08:29→20:13)
[2020-07-26] MEDS ORDERED: FUROSEMIDE 40MG/4ML VIAL (J1940) IV ONE (09:00)
--- NOTE | 2020-07-26 09:45 | IPNPDOC ---
Text Note Date of Service The patient was seen on 07/26/20. NOTE Subjective: Patient is a 74-year-old female with a PMHx of DM2, DLP, HTN, Anxiety / Depression who was initially admitted in medicine for hypoglycemia after a suicidal attempt with Tresiba insulin overdose. She was then discharged on the 07/15/20 to [facility] for suicidal ideations. She had a history of recent COVID infection, with 2 additional days remaining of her quarantine so was transferred back to medicine from [facility]. She was cleared by Psychiatry and as per them she did not need any sitter, she was depressed but not suicidal anymore. She also complained of some left-sided pleuritic back pain and a CT angiogram done did not show any pulmonary embolism. Did show Extensive bilateral peripheral ground-glass opacity pneumonia upper and lower lobes. Commonly reported imaging features of COVID-19 pneumonia are present. Other processes such as influenza pneumonia, drug toxicity, and connective tissue disease can produce a similar pattern. She started becoming hypoxic on 07/16/20 which continued to worsen and subsequently she was moved to ICU on 07/18/20 for CPAP support. Patient was seen and examined at the bedside. Patient appears fatigued, still able to answer questions appropriately has CPAP mask in place. Denies any chest pain or palpitations. Reports that she feels "yucky." Patient denies any nausea, vomiting, abdominal pain, diarrhea. Salvador catheter remains in place. Objective: Vitals (See below) General: Lying on her back, does not appear to be in any distress, is awake, alert and oriented to person, place and time HEENT: Again CPAP mask is in place CVS: +S1S2 Lungs: Diminished lung sounds bilaterally, difficult appreciate any wheezing, crackles or rhonchi Abdomen: Abdomen remains soft but obese. No appreciated tenderness or distention. No guarding or rigidity Extremities: Lower extremities are free of any pitting edema Imaging: CTA Chest 07/17: No CT evidence of pulmonary embolus. Extensive bilateral peripheral ground-glass opacity pneumonia upper and lower lobes. Commonly reported imaging features of COVID-19 pneumonia are present. Other processes such as influenza pneumonia, drug toxicity, and connective tissue disease can produce a similar pattern. Vascular US 07/18: No evidence of deep venous thrombosis of the bilateral lower extremity femoral popliteal venous system. CXR 2/8: Bilateral extensive interstitial infiltrates and diffuse interstitial disease. Most pronounced in the left base.. CXR 07/26: Progressive, now severe diffuse alveolar and interstitial opacification of the lung roque bilaterally.. Assessment and plan: Acute hypoxic respiratory failure - likely 2/2 COVID19 pneumonia; possibly 2/2 superimposed bacterial infection - Again, remains on CPAP 100% FiO2; saturations still remained borderline - Had another discussion with her about CODE STATUS and patient is still DNR and DNI - Inflammatory markers have not shown significant improvement - COVID19 positive on 07/14/2020 - Repeat imaging noted above - c/w Dexamethasone (Day #9) - c/w Remdesivir (Day #9) - s/p Ceftriaxone and Azithromycin (Completed a duration of 7 days) - Will give single dose of Furosemide 40 IV - Will start Meropenem (Day #1); will trend PCT - c/w Mucinex / Incentive spirometry / Acapella Blood cultures (1 of 2) positive - likely 2/2 contaminant 2/2 Micrococcus luteus - Hemodynamically stable / Afebrile - Blood cultures 07/18: (1 of 2): Micrococcus luteus - Blood cultures 07/22: Negative at 72 hours s/p Acute metabolic encephalopathy / Possible delirium - likely 2/2 hypoxia and COVID19 infection and hospitalization Prolonged QTC - EKG reveals QTc of 505 - ECHO compete 07/18: Grade 1 DD s/p Hypokalemia s/p Suicidal ideation - Was cleared by Psychiatry; not actively suicidal at present - s/p Beside sitter - c/w Sertraline DM2 with hyperglycemia, s/p hypoglycemia - s/p hypoglycemia after suspected Tresiba overdose - c/w ISS - Will start Levemir at BID dosing today HTN - BP well controlled - c/w Quinapril, Doxazosin, Bisoprolol, HCTZ DLP - c/w Atorvastatin GI prophylaxis - c/w Omeprazole DVT prophylaxis - D-dimers remain elevated - c/w Lovenox; weight-based therapeutic dosing Disposition: - Awaiting clinical improvement Code status: - DNR / DNI - Poor prognosis VS,Fishbone, I+O VS, Fishbone, I+O Laboratory Tests 07/26/20 04:17 Vital Signs Date Time Temp Pulse Resp B/P (MAP) Pulse Ox O2 Delivery O2 Flow Rate FiO2 07/26/20 08:27 89 129/76 07/26/20 08:13 85 BIPAP/CPAP 100 07/26/20 04:00 96.9 27 07/22/20 13:23 40.0 I&O- Last 24 Hours up to 6 AM 07/26/20 06:00 Intake Total 1080 ml Output Total 1250 ml Balance -170 ml HOWIE GUY MD Jul 26, 2020 09:45
[2020-07-26] MEDS: LEVEMIR (INSULIN DETEMIR) 1 UNITS/0.01ML SC SCH ×2 (10:53→20:26)
[2020-07-26] MEDS: MEROPENEM INJ 1 GM in IV 1 EA IV SCH ×2 (10:53→17:14)
[2020-07-26] MEDS: ACETAMINOPHEN 500 MG TAB PO PRN (11:08)
[2020-07-26] MEDS: dexameTHASONE 4 MG/ML 1ML VIAL (J1100 PER 1MG) IV SCH (16:54)
[2020-07-26] MEDS ORDERED: FUROSEMIDE 20MG/2ML VIAL (J1940) IV ONE (17:00)
[2020-07-26] MEDS: REMDESIVIR 100 MG in NS 250 ML IV SCH (17:47)
[2020-07-26] MEDS: ATORVASTATIN 20 MG TAB PO SCH (20:13)
[2020-07-26] MEDS: SERTRALINE HCL 50 MG TAB PO SCH (20:13)
[2020-07-26 20:56] LABS: BLOOD UREA NITROGEN 41 MG/DL (7-18); CALCIUM LEVEL 7.8 MG/DL (8.8-10.2); CARBON DIOXIDE LEVEL 31 MEQ/L (21-32); CHLORIDE LEVEL 105 MEQ/L (98-107); CK-MB VALUE MASS 2.4 NG/ML (<3.6); CPK CREATINE PHOSPHOKINASE 86 U/L (26-192); CREATININE FOR GFR 0.86 MG/DL (0.55-1.30); GLOMERULAR FILTRATION RATE > 60.0 (>39); GLUCOSE, FASTING 250 MG/DL (70-100); MB/CK RELATIVE INDEX 2.79 (< OR =4); POTASSIUM SERUM 4.7 MEQ/L (3.5-5.1); SODIUM LEVEL 144 MEQ/L (136-145); TROPONIN I < 0.02 NG/ML (< 0.10)
[2020-07-26 20:58] LABS: MAGNESIUM LEVEL 1.8 MG/DL (1.8-2.4); THYROID STIMULATING HORMONE 0.077 uIU/ML (0.358-3.740)
[2020-07-26 22:05] LABS: FREE T4 1.22 NG/DL (0.76-1.46)
[2020-07-27] VITALS (15 sets, daily range): BP systolic 121–189; BP diastolic 59–89; O2SAT 92
[2020-07-27 00:35] LABS: CK-MB VALUE MASS 2.3 NG/ML (<3.6); CPK CREATINE PHOSPHOKINASE 75 U/L (26-192); MB/CK RELATIVE INDEX 3.07 (< OR =4); TROPONIN I < 0.02 NG/ML (< 0.10)
[2020-07-27] MEDS: MEROPENEM INJ 1 GM in IV 1 EA IV SCH ×3 (01:57→17:13)
[2020-07-27 05:50] LABS: BASO % 0.1 % (0.0-1.0); EOS % 0.1 % (0.0-3.0); HEMATOCRIT 43.8 % (36.0-47.0); HEMOGLOBIN 13.8 g/dl (12.0-15.5); LYMPH # 0.4 10^3/uL (1.5-5.0); LYMPH % 2.2 % (24.0-44.0); MEAN CORPUSCULAR HEMOGLOBIN 28.8 pg (27.0-33.0); MEAN CORPUSCULAR HGB CONC 31.5 g/dl (32.0-36.5); MEAN CORPUSCULAR VOLUME 91.4 fl (80.0-96.0); MONO # 0.4 10^3/uL (0.0-0.8); MONO % 2.1 % (2.0-8.0); NEUTROPHILS # 16.9 10^3/uL (1.5-8.5); NEUTROPHILS % 94.6 % (36.0-66.0); PLATELET COUNT, AUTOMATED 210 10^3/uL (150-450); RED BLOOD COUNT 4.79 10^6/uL (4.00-5.40); WHITE BLOOD COUNT 17.9 10^3/uL (4.0-10.0)
[2020-07-27 06:20] LABS: BLOOD UREA NITROGEN 41 MG/DL (7-18); C REACTIVE PROTEIN QUANTITATIV 9.24 MG/DL (0.00-0.30); CALCIUM LEVEL 7.5 MG/DL (8.8-10.2); CARBON DIOXIDE LEVEL 32 MEQ/L (21-32); CHLORIDE LEVEL 106 MEQ/L (98-107); CREATININE FOR GFR 0.72 MG/DL (0.55-1.30); FERRITIN 1651 NG/ML (8-252); GLOMERULAR FILTRATION RATE > 60.0 (>39); GLUCOSE, FASTING 249 MG/DL (70-100); POTASSIUM SERUM 4.9 MEQ/L (3.5-5.1); SODIUM LEVEL 144 MEQ/L (136-145)
[2020-07-27 06:22] LABS: D-DIMER QUANT > 4000 ng/ml (<500)
[2020-07-27 06:45] LABS: FIBRINOGEN 641 MG/DL (221-452)
[2020-07-27] MEDS: guaiFENesin ER 600 MG TAB PO SCH ×2 (08:28→19:50)
[2020-07-27] MEDS: QUINAPRIL 20 MG TAB PO SCH (08:28)
[2020-07-27] MEDS: bisoproloL fumarate 5 MG TAB PO SCH (08:29)
[2020-07-27] MEDS: OMEPRAZOLE 20 MG CAP PO SCH (08:29)
[2020-07-27] MEDS: HumaLOG INSULIN (NovoLOG) PER UNIT SC SCH ×4 (08:30→19:52)
[2020-07-27] MEDS: LEVEMIR (INSULIN DETEMIR) 1 UNITS/0.01ML SC SCH ×2 (08:30→19:51)
[2020-07-27] MEDS: ENOXAPARIN 100MG/1ML SYRINGE (J1650 PER 10MG) SC SCH ×2 (08:31→19:52)
[2020-07-27] MEDS: FUROSEMIDE 40MG/4ML VIAL (J1940) IV SCH ×2 (08:31→16:29)
[2020-07-27] MEDS: DICLOFENAC EPOLAMINE 1.3 % PATCH TOP SCH ×2 (08:32→19:52)
[2020-07-27] MEDS: ANALGESIC BALM CRM 120 GM TOP PRN (09:21)
--- NOTE | 2020-07-27 10:05 | IPNPDOC ---
Text Note Date of Service The patient was seen on 07/27/20. NOTE Subjective: Patient is a 74-year-old female with a PMHx of DM2, DLP, HTN, Anxiety / Depression who was initially admitted in medicine for hypoglycemia after a suicidal attempt with Tresiba insulin overdose. She was then discharged on the 07/15/20 to [facility] for suicidal ideations. She had a history of recent COVID infection, with 2 additional days remaining of her quarantine so was transferred back to medicine from [facility]. She was cleared by Psychiatry and as per them she did not need any sitter, she was depressed but not suicidal anymore. She also complained of some left-sided pleuritic back pain and a CT angiogram done did not show any pulmonary embolism. Did show Extensive bilateral peripheral ground-glass opacity pneumonia upper and lower lobes. Commonly reported imaging features of COVID-19 pneumonia are present. Other processes such as influenza pneumonia, drug toxicity, and connective tissue disease can produce a similar pattern. She started becoming hypoxic on 07/16/20 which continued to worsen and subsequently she was moved to ICU on 07/18/20 for CPAP support. Patient was seen and examined at the bedside. Currently patient has been doing better on CPAP. Her FiO2 requirement is improved. Denies any chest pain, palpitations, nausea or vomiting. No diarrhea. Salvador catheter remains in place. Objective: Vitals (See below) General: Patient is seen laying in bed prone positioning, appears comfortable, oriented to person, place and time HEENT: Patient is normocephalic with a CPAP mask in place CVS: +S1S2 Lungs: There does not appear to be any appreciated, rhonchi, crackles or wheezing Abdomen: Abdomen is rotund, obese, no distention or tenderness noted Extremities: Lower extremities appear thin without any pitting edema Imaging: CTA Chest 07/17: No CT evidence of pulmonary embolus. Extensive bilateral peripheral ground-glass opacity pneumonia upper and lower lobes. Commonly reported imaging features of COVID-19 pneumonia are present. Other processes such as influenza pneumonia, drug toxicity, and connective tissue disease can produce a similar pattern. Vascular US 07/18: No evidence of deep venous thrombosis of the bilateral lower extremity femoral popliteal venous system. CXR 07/21: Bilateral extensive interstitial infiltrates and diffuse interstitial disease. Most pronounced in the left base.. CXR 2/13: Progressive, now severe diffuse alveolar and interstitial opacification of the lung roque bilaterally.. Assessment and plan: Acute hypoxic respiratory failure - likely 2/2 COVID19 pneumonia; possibly 2/2 superimposed bacterial infection - Patient has had an improvement of her FiO2 requirement on CPAP - Inflammatory markers has trended down - COVID19 positive on 07/14/2020 - Repeat imaging noted above - c/w Dexamethasone (Day #10) - c/w Remdesivir (Day #10) - s/p Ceftriaxone and Azithromycin (Completed a duration of 7 days); c/w Me ropenem (Day #2); PCT trending down - c/w Mucinex / Incentive spirometry / Acapella Reported A. fib on telemetry - Denies any chest pain, palpitations - Hemodynamically stable - TSH suppressed, but T4 normal range - will repeat in 3 weeks (likely as outpatient) - Troponin x 2 negatove - Not captured on EKG - c/w rate control with Bisoprolol - c/w full anticoagulation with Lovenox - c/w telemetry monitoring Possible component of fluid overload - Has remained negative fluid balance yesterday - c/w diuresis Blood cultures (1 of 2) positive - likely 2/2 contaminant 2/2 Micrococcus luteus - Hemodynamically stable / Afebrile - Blood cultures 07/18: (1 of 2): Micrococcus luteus - Blood cultures 07/22: Negative at 72 hours s/p Acute metabolic encephalopathy / Possible delirium - likely 2/2 hypoxia and COVID19 infection and hospitalization Prolonged QTC - EKG reveals QTc of 505 - ECHO compete 07/18: Grade 1 DD s/p Hypokalemia s/p Suicidal ideation - Was cleared by Psychiatry; not actively suicidal at present - s/p Beside sitter - c/w Sertraline DM2 with hyperglycemia, s/p hypoglycemia - s/p hypoglycemia after suspected Tresiba overdose - c/w ISS - c/w Levemir BID; will adjust again in 24 hours HTN - BP well controlled - c/w Quinapril, Doxazosin, Bisoprolol, HCTZ DLP - c/w Atorvastatin GI prophylaxis - c/w Omeprazole DVT prophylaxis - D-dimers remain elevated - c/w Lovenox; weight-based therapeutic dosing Disposition: - Awaiting clinical improvement Code status: - DNR / DNI - Poor prognosis VS,Fishbone, I+O VS, Fishbone, I+O Laboratory Tests 07/26/20 20:05 07/27/20 05:33 Vital Signs Date Time Temp Pulse Resp B/P (MAP) Pulse Ox O2 Delivery O2 Flow Rate FiO2 07/27/20 09:00 94 93 NIPPV (BIPAP/CPAP) 75 07/27/20 08:28 170/77 07/27/20 08:00 97.8 34 07/22/20 13:23 40.0 I&O- Last 24 Hours up to 6 AM 07/27/20 06:00 Intake Total 900 ml Output Total 2090 ml Balance -1190 ml HOWIE GUY MD Jul 27, 2020 10:05
[2020-07-27] MEDS: ACETAMINOPHEN 500 MG TAB PO PRN (11:51)
--- NOTE | 2020-07-27 12:54 | ECGEPIP ---
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
[2020-07-27] MEDS: dexameTHASONE 4 MG/ML 1ML VIAL (J1100 PER 1MG) IV SCH (16:27)
[2020-07-27] MEDS: REMDESIVIR 100 MG in NS 250 ML IV SCH (17:48)
[2020-07-27] MEDS: ATORVASTATIN 20 MG TAB PO SCH (19:51)
[2020-07-28] VITALS (26 sets, daily range): BP systolic 95–160; BP diastolic 55–84; O2SAT 92–93
[2020-07-28] MEDS: ACETAMINOPHEN 500 MG TAB PO PRN ×3 (00:33→23:30)
[2020-07-28] MEDS: MEROPENEM INJ 1 GM in IV 1 EA IV SCH ×3 (02:08→17:59)
[2020-07-28 04:01] LABS: BASO % 0.2 % (0.0-1.0); HEMOGLOBIN 14.2 g/dl (12.0-15.5); LYMPH # 0.3 10^3/uL (1.5-5.0); LYMPH % 1.5 % (24.0-44.0); MEAN CORPUSCULAR HEMOGLOBIN 29.2 pg (27.0-33.0); MEAN CORPUSCULAR HGB CONC 32.3 g/dl (32.0-36.5); MEAN CORPUSCULAR VOLUME 90.5 fl (80.0-96.0); MONO # 0.5 10^3/uL (0.0-0.8); MONO % 2.4 % (2.0-8.0); NEUTROPHILS # 18.5 10^3/uL (1.5-8.5); NEUTROPHILS % 95.2 % (36.0-66.0); PLATELET COUNT, AUTOMATED 228 10^3/uL (150-450); RED BLOOD COUNT 4.86 10^6/uL (4.00-5.40); WHITE BLOOD COUNT 19.4 10^3/uL (4.0-10.0)
[2020-07-28 04:14] LABS: D-DIMER QUANT 3740.53 ng/ml (<500)
[2020-07-28 04:27] LABS: ALBUMIN 1.5 GM/DL (3.2-5.2); BILIRUBIN,TOTAL 0.4 MG/DL (0.2-1.0); C REACTIVE PROTEIN QUANTITATIV 6.06 MG/DL (0.00-0.30); CALCIUM LEVEL 7.7 MG/DL (8.8-10.2); CREATININE FOR GFR 1.07 MG/DL (0.55-1.30); GLOMERULAR FILTRATION RATE 53.2 (>39); MAGNESIUM LEVEL 1.9 MG/DL (1.8-2.4); POTASSIUM SERUM 4.3 MEQ/L (3.5-5.1); TOTAL PROTEIN 6.6 GM/DL (6.4-8.2)
[2020-07-28] MEDS: LORazepam 2 MG/ML VIAL IV PRN ×2 (05:43→20:06)
[2020-07-28] MEDS: DICLOFENAC EPOLAMINE 1.3 % PATCH TOP SCH ×2 (08:25→20:06)
[2020-07-28] MEDS: ENOXAPARIN 100MG/1ML SYRINGE (J1650 PER 10MG) SC SCH ×2 (08:25→20:06)
[2020-07-28] MEDS: HumaLOG INSULIN (NovoLOG) PER UNIT SC SCH ×4 (08:25→20:07)
[2020-07-28] MEDS: QUINAPRIL 20 MG TAB PO SCH (08:26)
[2020-07-28] MEDS: guaiFENesin ER 600 MG TAB PO SCH ×2 (08:27→20:05)
[2020-07-28] MEDS: OMEPRAZOLE 20 MG CAP PO SCH (08:27)
[2020-07-28] MEDS: bisoproloL fumarate 5 MG TAB PO SCH (08:28)
[2020-07-28] MEDS: LEVEMIR (INSULIN DETEMIR) 1 UNITS/0.01ML SC SCH ×2 (08:28→20:06)
[2020-07-28] MEDS ORDERED: NS 500 ML IV SCH (11:45)
--- NOTE | 2020-07-28 11:51 | IPNPDOC ---
Text Note Date of Service The patient was seen on 07/28/20. NOTE Subjective: Patient is a 74-year-old female with a PMHx of DM2, DLP, HTN, Anxiety / Depression who was initially admitted in medicine for hypoglycemia after a suicidal attempt with Tresiba insulin overdose. She was then discharged on the 07/15/20 to [facility] for suicidal ideations. She had a history of recent COVID infection, with 2 additional days remaining of her quarantine so was transferred back to medicine from [facility]. She was cleared by Psychiatry and as per them she did not need any sitter, she was depressed but not suicidal anymore. She also complained of some left-sided pleuritic back pain and a CT angiogram done did not show any pulmonary embolism. Did show Extensive bilateral peripheral ground-glass opacity pneumonia upper and lower lobes. Commonly reported imaging features of COVID-19 pneumonia are present. Other processes such as influenza pneumonia, drug toxicity, and connective tissue disease can produce a similar pattern. She started becoming hypoxic on 07/16/20 which continued to worsen and subsequently she was moved to ICU on 07/18/20 for CPAP support. Patient was seen and examined at the bedside. Patient reported that she feels relatively fine. Denies any chest pain, palpations still reports a mild nonproductive cough. Denies any nausea, vomiting, abdominal pain, diarrhea, has Salvador catheter that is present. Objective: Vitals (See below) General: Patient is laying in bed, appears to be comfortable with CPAP mask in place, is oriented to person, place and time HEENT: Atraumatic, NC CVS: +S1S2 Lungs: Diminished air entry bilaterally, no appreciable wheezing, crackles or rhonchi Abdomen: Soft, nondistended, without any tenderness Extremities: No edema appreciated Imaging: CTA Chest 07/17: No CT evidence of pulmonary embolus. Extensive bilateral peripheral ground-glass opacity pneumonia upper and lower lobes. Commonly reported imaging features of COVID-19 pneumonia are present. Other processes such as influenza pneumonia, drug toxicity, and connective tissue disease can produce a similar pattern. Vascular US 07/18: No evidence of deep venous thrombosis of the bilateral lower extremity femoral popliteal venous system. CXR 07/21: Bilateral extensive interstitial infiltrates and diffuse interstitial disease. Most pronounced in the left base. CXR 07/26: Progressive, now severe diffuse alveolar and interstitial opacification of the lung roque bilaterally. Assessment and plan: Acute hypoxic respiratory failure - likely 2/2 COVID19 pneumonia; possibly 2/2 superimposed bacterial infection - Currently on CPAP; improving FIO2 requirement - Inflammatory markers improving - COVID19 positive on 07/14/2020 - Repeat imaging noted above - c/w Dexamethasone (Day #11); will taper off with prednisone - s/p Remdesivir (10 day course) - s/p Ceftriaxone and Azithromycin (Completed a duration of 7 days) - c/w Meropenem (Day #3); PCT improving - c/w Mucinex / Incentive spirometry / Acapella Reported A. fib on telemetry - Denies any chest pain, palpitations - Hemodynamically stable - TSH suppressed, but T4 normal range - will repeat in 3 weeks (likely as outpatient) - Troponin x 2 negative - Not captured on EKG - c/w rate control with Bisoprolol - c/w full anticoagulation with Lovenox - c/w telemetry monitoring Possible component of fluid overload - s/p Diuresis Blood cultures (1 of 2) positive - likely 2/2 contaminant 2/2 Micrococcus luteus - Hemodynamically stable / Afebrile - Blood cultures 07/18: (1 of 2): Micrococcus luteus - Blood cultures 07/22: Negative at 72 hours s/p Acute metabolic encephalopathy / Possible delirium - likely 2/2 hypoxia and COVID19 infection and hospitalization Prolonged QTC - EKG with improvement of QTc - ECHO compete 07/18: Grade 1 DD - s/p QTC prolonging medications s/p Hypokalemia s/p Suicidal ideation - Was cleared by Psychiatry; not actively suicidal at present - s/p Beside sitter - s/p Sertraline (re; QTc Prolongation) DM2 with hyperglycemia, s/p hypoglycemia - s/p hypoglycemia after suspected Tresiba overdose - c/w ISS - c/w Levemir BID; will adjust again in 24 hours HTN - BP well controlled - c/w Quinapril, Doxazosin, Bisoprolol, HCTZ DLP - c/w Atorvastatin GI prophylaxis - c/w Omeprazole DVT prophylaxis - D-dimers remain elevated - c/w Lovenox; weight-based therapeutic dosing Disposition: - Awaiting clinical improvement Code status: - DNR / DNI - Poor prognosis VS,Fishbone, I+O VS, Fishbone, I+O Laboratory Tests 07/28/20 03:51 Vital Signs Date Time Temp Pulse Resp B/P (MAP) Pulse Ox O2 Delivery O2 Flow Rate FiO2 07/28/20 11:17 85 07/28/20 10:00 123 36 121/58 (79) 89 NIPPV (BIPAP/CPAP) 07/28/20 08:00 99.2 07/22/20 13:23 40.0 I&O- Last 24 Hours up to 6 AM 07/28/20 06:00 Intake Total 840 ml Output Total 1880 ml Balance -1040 ml HOWIE GUY MD Jul 28, 2020 11:51
[2020-07-28] MEDS ORDERED: SODIUM CHLORIDE 0.9% 1000ML IV ONE (12:00)
[2020-07-28] MEDS: predniSONE 10 MG TAB PO SCH (12:36)
[2020-07-28 17:18] LABS: CALCIUM LEVEL 7.5 MG/DL (8.8-10.2); CREATININE FOR GFR 1.4 MG/DL (0.55-1.30); POTASSIUM SERUM 3.8 MEQ/L (3.5-5.1)
[2020-07-28] MEDS ORDERED: NS 0.45% 1,000 ML IV SCH (18:00)
[2020-07-28] MEDS ORDERED: NS 500 ML IV ONE (18:45)
--- NOTE | 2020-07-28 19:24 | REP ---
INDICATION: SOB. COMPARISON: 07/26/2020, 07/21/2020; CT 07/17/2020 TECHNIQUE: AP portable semi-erect chest FINDINGS: Slight elevation of the right diaphragm again seen. There is significant improvement in the dense alveolar and interstitial consolidations present bilaterally but which were much worse on the left than right. There is still some chronic and/or acute interstitial change patchy interstitial edema or infiltrates again seen. No gross effusion on the lateral CP angles. No lateral pleural thickening apical scarring or pneumothorax heart size not grossly enlarged the aorta is mildly tortuous but unchanged airway midline hilar contours grossly symmetric. Some minor degenerative changes in the spine and shoulders. No free air under the diaphragm. IMPRESSION: 1. Significant improvement in the extensive alveolar and interstitial infiltrates noted in both lungs on the previous chest which were much worse on the left side previously, now with more symmetric appearance of the lung roque and nearly resolved air bronchograms. Underlying chronic interstitial changes or acute on chronic changes again seen. No gross cardiomegaly. No visible effusion but the posterior and lower lung zones are not well evaluated on in AP portable semi-erect chest. <Electronically signed by Jose Francisco Aiken > 07/28/201920
[2020-07-28] MEDS: ATORVASTATIN 20 MG TAB PO SCH (20:05)
[2020-07-28] MEDS ORDERED: LEVEMIR (INSULIN DETEMIR) 1 UNITS/0.01ML SC SCH (21:00)
--- NOTE | 2020-07-28 22:04 | ECGEPIP ---
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
[2020-07-29] VITALS (32 sets, daily range): BP systolic 83–146; BP diastolic 51–77
[2020-07-29] MEDS ORDERED: NS 500 ML IV ONE
[2020-07-29 01:05] LABS: CLOSTRIDIUM DIFFICILE PCR NEGATIVE (NEGATIVE)
[2020-07-29] MEDS: MEROPENEM INJ 1 GM in IV 1 EA IV SCH ×3 (02:07→17:54)
[2020-07-29 02:29] LABS: HEMATOCRIT 43.2 % (36.0-47.0); HEMOGLOBIN 13.3 g/dl (12.0-15.5); MEAN CORPUSCULAR HEMOGLOBIN 28.5 pg (27.0-33.0); MEAN CORPUSCULAR HGB CONC 30.8 g/dl (32.0-36.5); MEAN CORPUSCULAR VOLUME 92.7 fl (80.0-96.0); PLATELET COUNT, AUTOMATED 203 10^3/uL (150-450); RED BLOOD COUNT 4.66 10^6/uL (4.00-5.40); WHITE BLOOD COUNT 21.1 10^3/uL (4.0-10.0)
[2020-07-29 03:02] LABS: CALCIUM LEVEL 7.8 MG/DL (8.8-10.2); CK-MB VALUE MASS 4.5 NG/ML (<3.6); CREATININE FOR GFR 1.28 MG/DL (0.55-1.30); GLOMERULAR FILTRATION RATE 43.3 (>39); MAGNESIUM LEVEL 2.4 MG/DL (1.8-2.4); MB/CK RELATIVE INDEX 1.02 (< OR =4); PHOSPHORUS LEVEL 3.7 MG/DL (2.5-4.9); POTASSIUM SERUM 3.5 MEQ/L (3.5-5.1); TROPONIN I 0.05 NG/ML (< 0.10)
[2020-07-29 03:10] LABS: CREATININE FOR GFR 1.22 MG/DL (0.55-1.30); GLOMERULAR FILTRATION RATE 45.7 (>39); POTASSIUM SERUM 3.7 MEQ/L (3.5-5.1)
[2020-07-29 06:25] LABS: HEMATOCRIT 44.9 % (36.0-47.0); HEMOGLOBIN 14.2 g/dl (12.0-15.5); MEAN CORPUSCULAR HEMOGLOBIN 29.5 pg (27.0-33.0); MEAN CORPUSCULAR HGB CONC 31.6 g/dl (32.0-36.5); MEAN CORPUSCULAR VOLUME 93.3 fl (80.0-96.0); PLATELET COUNT, AUTOMATED 201 10^3/uL (150-450); RED BLOOD COUNT 4.81 10^6/uL (4.00-5.40); WHITE BLOOD COUNT 21.5 10^3/uL (4.0-10.0)
[2020-07-29 06:39] LABS: D-DIMER QUANT 3526.92 ng/ml (<500)
[2020-07-29 08:57] LABS: ALBUMIN 1.6 GM/DL (3.2-5.2); BILIRUBIN,DIRECT 0.2 MG/DL (0.0-0.2); BILIRUBIN,TOTAL 0.4 MG/DL (0.2-1.0); C REACTIVE PROTEIN QUANTITATIV 2.54 MG/DL (0.00-0.30); CALCIUM LEVEL 7.7 MG/DL (8.8-10.2); CK-MB VALUE MASS 4.2 NG/ML (<3.6); CREATININE FOR GFR 1.13 MG/DL (0.55-1.30); MAGNESIUM LEVEL 2.5 MG/DL (1.8-2.4); MB/CK RELATIVE INDEX 1.11 (< OR =4); POTASSIUM SERUM 3.6 MEQ/L (3.5-5.1); TOTAL PROTEIN 5.9 GM/DL (6.4-8.2); TROPONIN I 0.04 NG/ML (< 0.10)
[2020-07-29] MEDS: HumaLOG INSULIN (NovoLOG) PER UNIT SC SCH ×4 (09:05→19:59)
[2020-07-29] MEDS: predniSONE 10 MG TAB PO SCH (09:06)
[2020-07-29] MEDS: guaiFENesin ER 600 MG TAB PO SCH (09:06)
[2020-07-29] MEDS: bisoproloL fumarate 5 MG TAB PO SCH ×2 (09:06→09:08)
[2020-07-29] MEDS: DICLOFENAC EPOLAMINE 1.3 % PATCH TOP SCH ×2 (09:07→19:58)
[2020-07-29] MEDS: OMEPRAZOLE 20 MG CAP PO SCH (09:08)
[2020-07-29] MEDS: ENOXAPARIN 100MG/1ML SYRINGE (J1650 PER 10MG) SC SCH ×2 (09:08→19:58)
[2020-07-29] MEDS: LEVEMIR (INSULIN DETEMIR) 1 UNITS/0.01ML SC SCH ×2 (09:10→20:09)
[2020-07-29] MEDS ORDERED: ADENOSINE 6MG/2ML INJECTION (J0153) As Ordered ONE (09:58)
[2020-07-29] MEDS ORDERED: NS 1,000 ML IV ONE ×3 (10:15→19:30)
[2020-07-29] MEDS ORDERED: ISOVUE-370 76% 100ML VIAL As Ordered ONE (11:27)
--- NOTE | 2020-07-29 12:40 | REP ---
INDICATION: IV contrast please. LLQ pain.. COMPARISON: None. TECHNIQUE: Helical scanning is acquired and 3 mm axial images re-formatted. Coronal and sagittal MPR images are generated. The CT contrast enhancement dose is 100 mL of intravenous Isovue 370. FINDINGS: Digital preliminary flexo folder gluer operator radiograph is unremarkable. Bowel gas pattern is normal. There are clips in right upper quadrant. Axial images through the lung bases demonstrate diffuse alveolar opacity throughout the lower lobes with air bronchograms. Consistent with diffuse alveolar edema/ARDS. There is a granulomatous calcification in the right lower lobe as well. There is no evidence of upper abdominal or ascites or pleural effusion. Normal adrenal glands are observed bilaterally. The liver and the spleen are normal in size homogeneous in texture. Kidneys enhance symmetrically. There is a simple cyst in the right mid kidney medially measuring 1.7 cm in greatest diameter. No abnormality is noted in the pancreas. The gallbladder is surgically absent. No retroperitoneal mass or adenopathy is seen. No hydronephrosis or intrarenal calculus is observed. Small and large intestinal bowel loops are normal in the abdomen and pelvis. A Salvador catheter is seen in the urinary bladder which is empty as result. No abdominal wall defect is seen. There is mild sigmoid colon diverticulosis without CT evidence of diverticulitis. The appendix is surgically absent. No bony destructive lesion is seen. IMPRESSION: Small cyst right kidney. Post cholecystectomy, appendectomy, and hysterectomy. No acute abdominal abnormality. Scattered left colonic diverticulosis. Diffuse alveolar opacity in the lung roque. <Electronically signed by Kofi Vázquez > 07/29/20 [id number]
[2020-07-29] MEDS ORDERED: LORazepam 2 MG/ML VIAL As Ordered ONE (14:15)
[2020-07-29] MEDS: LORazepam 2 MG/ML VIAL IV PRN (14:19)
[2020-07-29] MEDS ORDERED: bisoproloL fumarate 5 MG TAB PO ONE (18:00)
[2020-07-29] MEDS ORDERED: VANCOMYCIN HCL 1,000 MG, VIAL MATE ADAPTER 1 EACH in D5W 250 ML IV SCH (18:30)
--- NOTE | 2020-07-29 19:26 | IPNPDOC ---
Date Seen The patient was seen on 07/29/20. Progress Note SUBJECTIVE: Patient is a 74-year-old female with a PMHx of DM2, DLP, HTN, Anxiety / Depression who was initially admitted in medicine for hypoglycemia after a suicidal attempt with Tresiba insulin overdose. She was then discharged on the 07/15/20 to [facility] for suicidal ideations. She had a history of recent COVID infection, with 2 additional days remaining of her quarantine so was transferred back to medicine from [facility]. She was cleared by Psychiatry and as per them she did not need any sitter, she was depressed but not suicidal anymore. She also complained of some left-sided pleuritic back pain and a CT angiogram done did not show any pulmonary embolism. Did show Extensive bilateral peripheral ground-glass opacity pneumonia upper and lower lobes. Commonly reported imaging features of COVID-19 pneumonia are present. Other processes such as influenza pneumonia, drug toxicity, and connective tissue disease can produce a similar pattern. She started becoming hypoxic on 07/16/20 which continued to worsen and subsequently she was moved to ICU on 07/18/20 for CPAP support. Patient was seen and examined at the bedside. Patient reported that she feels relatively fine. Denies any chest pain, palpations still reports a mild nonproductive cough. Denies any nausea, vomiting, abdominal pain, diarrhea, has Salvador catheter that is present. OBJECTIVE PHYSICAL EXAMINATION: VITAL SIGNS: please see below General: on CPAP, tolerating mask HEENT: PERRLA, EOMI, sclerae clear Neck: supple, normal ROM, no JVD Respiratory: poor air entry bilaterally, no wheeze, no rales, mild crackles at lung bases CVS: RRR, normal S1, S2, no murmurs Abdo: soft, no masses, no hepatosplenomegaly, BS+, no rebound tenderness Extremities: no edema, pulses 2+ MSK: no joint deformities, normal ROM Neuro: no focal neuro deficits, moving all 4 extremities, CN2-12 intact. Strength 5/5 in all 4 extremities. No nystagmus. Psych: calm, cooperative, AAO x 3 LABORATORY DATA, IMAGING STUDIES, MICROBIOLOGY: Please see below. CTA Chest 07/17: No CT evidence of pulmonary embolus. Extensive bilateral peripheral ground-glass opacity pneumonia upper and lower lobes. Commonly reported imaging features of COVID-19 pneumonia are present. Other processes such as influenza pneumonia, drug toxicity, and connective tissue disease can produce a similar pattern. Vascular US 07/18: No evidence of deep venous thrombosis of the bilateral lower extremity femoral popliteal venous system. CXR 07/21: Bilateral extensive interstitial infiltrates and diffuse interstitial disease. Most pronounced in the left base. CXR 07/26: Progressive, now severe diffuse alveolar and interstitial opacification of the lung roque bilaterally. DVT prophylaxis ordered?: full dose lovenox AC ASSESSMENT AND PLAN: Acute hypoxic respiratory failure - likely 2/2 COVID19 pneumonia; possibly 2/2 superimposed bacterial infection - Currently on CPAP; improving FIO2 requirement - Inflammatory markers improving - COVID19 positive on 07/14/2020 - Repeat imaging noted above - s/p Dexamethasone (11 days); will taper off with prednisone - s/p Remdesivir (10 day course) - s/p Ceftriaxone and Azithromycin (Completed a duration of 7 days) - c/w Meropenem (Day #4); PCT improving - c/w Mucinex / Incentive spirometry / Acapella #Lactic acidosis - persists despite fluid resuscitation - check CT abdo pelvis w IV contrast, no evidence for mesenteric ischemia - concern for sepsis - rubber goods cutter finisher consult Reported A. fib on telemetry - Denies any chest pain, palpitations - Hemodynamically stable - TSH suppressed, but T4 normal range - will repeat in 3 weeks (likely as outpatient) - Troponin x 2 negative - Not captured on EKG - d/w Dr. Hernandez, increased bisoprolol to 5 mg BID - reviewed ECHO from 07/18/20 - c/w full anticoagulation with Lovenox - c/w telemetry monitoring Possible component of fluid overload - s/p Diuresis Blood cultures (1 of 2) positive - likely 2/2 contaminant 2/2 Micrococcus luteus - Hemodynamically stable / Afebrile - Blood cultures 07/18: (1 of 2): Micrococcus luteus - Blood cultures 07/22: Negative at 72 hours s/p Acute metabolic encephalopathy / Possible delirium - likely 2/2 hypoxia and COVID19 infection and hospitalization Prolonged QTC - EKG with improvement of QTc - ECHO compete 07/18: Grade 1 DD - s/p QTC prolonging medications s/p Hypokalemia s/p Suicidal ideation - Was cleared by Psychiatry; not actively suicidal at present - s/p Beside sitter - s/p Sertraline (re; QTc Prolongation) DM2 with hyperglycemia, s/p hypoglycemia - s/p hypoglycemia after suspected Tresiba overdose - c/w ISS - c/w Levemir BID; will adjust again in 24 hours HTN - BP well controlled - c/w Quinapril, Doxazosin, Bisoprolol, HCTZ DLP - c/w Atorvastatin GI prophylaxis - c/w Omeprazole DVT prophylaxis - D-dimers remain elevated - c/w Lovenox; weight-based therapeutic dosing Disposition: - Awaiting clinical improvement - I called patient's Crescencio Metzger (tel: [phone]) and left VM. Code status: - DNR / DNI - Poor prognosis VS, I&O, 24H, [facility] Vital Signs/I&O Vital Signs Date Time Temp Pulse Resp B/P (MAP) Pulse Ox O2 Delivery O2 Flow Rate FiO2 07/29/20 18:14 138 30 118/55 (76) 90 NIPPV (BIPAP/CPAP) 85 07/29/20 17:00 100.9 07/28/20 20:10 40.0 I&O- Last 24 Hours up to 6 AM 07/29/20 06:00 Intake Total 3425 ml Output Total 801 ml Balance 2624 ml Laboratory Data 24H LABS Laboratory Tests 2 07/28/20 20:03: Bedside Glucose (Misc Panel) 359H 07/29/20 00:15: Urine Color YELLOW, Urine Appearance HAZY, Urine pH 5.0, Urine Specific North 1.029, Urine Protein 1+H, Urine Glucose (UA) 1+H, Urine Ketones TRACEH, Urine Blood 2+H, Urine Nitrite NEGATIVE, Urine Bilirubin NEGATIVE, Urine Urobilinogen 0.2, Urine Leukocyte Esterase NEGATIVE, Urine WBC (Auto) 4H, Urine RBC (Auto) 115H, Urine Hyaline Casts (Auto) 0, Urine Bacteria (Auto) NEGATIVE, Urine Squamous Epithelial Cells 0, Urine Sperm (Auto) , Clostridium difficile [id number] PRESUMPTIVE NEGATIVE, Clostridium difficile Toxin (PCR) NEGATIVE 07/29/20 01:28: Lactic Acid Followup at 4 Hours 2.7*H 07/29/20 02:15: Anion Gap 5L, Glomerular Filtration Rate 43.3, Calcium Level 7.8L, Phosphorus Level 3.7, Magnesium Level 2.4, Total Creatine Kinase 443#H, Creatine Kinase MB 4.5H, Creatine Kinase MB Relative Index 1.02, Troponin I 0.05 07/29/20 02:16: Nucleated Red Blood Cells % (auto) 0.0, Anion Gap 10, Glomerular Filtration Rate 45.7, Calcium Level 7.0L 07/29/20 06:11: Nucleated Red Blood Cells % (auto) 0.0, Fibrinogen 522H, D-Dimer, Quantitative 3526.92H 07/29/20 07:37: Anion Gap 6L, Glomerular Filtration Rate 50.0, Calcium Level 7.7L, Magnesium Level 2.5H, Ferritin 1704H, Total Bilirubin 0.4, Direct Bilirubin 0.2, Aspartate Amino Transf (AST/SGOT) 56H, Alanine Aminotransferase (ALT/SGPT) 92H, Alkaline Phosphatase 220H, Lactate Dehydrogenase 508H, Total Creatine Kinase 378H, Creatine Kinase MB 4.2H, Creatine Kinase MB Relative Index 1.11, Troponin I 0.04, C-Reactive Protein, Quantitative 2.54H, Total Protein 5.9L, Albumin 1.6L, Albumin/Globulin Ratio 0.4L 07/29/20 08:44: Lactic Acid Level 2.7*H 07/29/20 08:59: Bedside Glucose (Misc Panel) 267H 07/29/20 12:04: Bedside Glucose (Misc Panel) 423H 07/29/20 13:10: Lactic Acid Level 3.3*H 07/29/20 17:40: Bedside Glucose (Misc Panel) 323H 07/29/20 17:42: Lactic Acid Followup at 4 Hours 2.2*H CBC/BMP Laboratory Tests 07/29/20 02:15 07/29/20 02:16 07/29/20 06:11 07/29/20 07:37 Microbiology Microbiology 07/28/20 Blood Culture, Received Pending 07/28/20 Blood Culture, Received Pending 07/22/20 Blood Culture - Final, Complete NO GROWTH AFTER 5 DAYS 07/22/20 Blood Culture - Final, Complete NO GROWTH AFTER 5 DAYS JEFRY OSMAN MD Jul 29, 2020 19:26
[2020-07-29] MEDS ORDERED: VANCOMYCIN HCL 1,000 MG, VIAL MATE ADAPTER 1 EACH in D5W 250 ML IV ONE (20:00)
[2020-07-29 20:44] LABS: ABG BASE EXCESS 2.3 (-2.0-2.0); ABG HCO3 27.6 MEQ/L (22.0-26.0); ABG O2 SATURATION 93.3 % (95.0-99.0); ABG PARTIAL PRESSURE CO2 45.4 mmHg (35.0-45.0); ABG PARTIAL PRESSURE O2 69.8 mmHg (75.0-100.0); ABG STANDARD HCO3 26.5 MEQ/L (22.0-26.0); ABG pH (ARTERIAL) 7.402 UNITS (7.350-7.450)
[2020-07-29] MEDS ORDERED: VANCOMYCIN HCL 500 MG in D5W MINI-BAG PLUS 100 ML IV ONE (21:00)
[2020-07-29] MEDS: VANCOMYCIN ORAL SOL 250MG/5ML ORAL SYRINGE PO SCH (21:06)
--- NOTE | 2020-07-29 21:08 | ECGEPIP ---
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
--- NOTE | 2020-07-29 21:32 | CCN ---
PULMONARY CRITICAL CARE NOTE DATE: 07/29/2020 CRITICAL CARE TIME: 1 hour 40 minutes, excludes all procedures. SUBJECTIVE: I was called to evaluate this 74-year-old female who has been in the intensive care unit for COVID ventilatory failure now for over 12 days. She has not seen a manufacturing production technician since she has been here. She remains severely hypoxic with continued significant radiographic abnormalities. I was called as the patient is tachycardic and hypoxic without hypotension. There was a concern that she was volume overloaded; however, she is very hypernatremic and appears volume depleted on exam. She appears to have cone into an irregularly irregular heart rate, possible multifocal atrial tachycardia (MAT). I am obtaining an EKG to confirm this. Cardiology was consulted prior, but has not yet been to evaluate the patient. Patient remains on bisoprolol. Heart rate has ranged from 133-163. I examined the patient's EKG from this morning, which showed a left bundle branch block with sinus tachycardia. Telemetry, the left bundle branch block is present, but the rhythm appears different. Patient had a CT angiogram a number of days ago, July 17, 2020, which shows diffuse ground-glass opacities (GGOs), bilateral lower lobe infiltrates, cardiomegaly and left ventricular hypertrophy. The patient has a persistent low level lactic acidosis. There are concerns for ongoing sepsis, currently patient on meropenem. Patient is still on high dose Lovenox due to recent COVID exposure, had completed a 10 day course of Remdesivir. PHYSICAL EXAMINATION: Temperature (T-Max) 101.1 rectally, temperature now 100.9 rectally, pulse 138, respiratory rate 30, blood pressure 118/55 with a mean arterial pressure of 76, oxygen saturation 0.90 on FiO2 of 0.85 with a continuous positive airway pressure (CPAP) of 14. Patient desaturates with any removal of the CPAP. Currently, tidal volumes are low 700s on the CPAP. Patient is having excessive accessory muscle use. GENERAL: Patient appears uncomfortable, tachypneic. HEENT: Sclerae clear. Nares dry. Pupils equal and react to light. Mucous membranes moist without lesions. Oropharynx without erythema or exudate. Mucous membranes are slightly dry. Tongue is midline. Neck is supple. No tracheal deviation or mass. Jugular venous pressure (JVP) is difficult to assess due to body habitus. PULMONARY: Decreased breath sounds throughout without rhonchi or rales. No dullness to percussion. CARDIAC: Distant S1, S2. Irregularly irregular. ABDOMEN: Obese, soft, nontender, nondistended. No hepatosplenomegaly, masses or hernia. EXTREMITIES: No cyanosis, clubbing or edema. LABORATORY EVALUATION: Hypernatremia with a sodium of 150, potassium 3.6, chloride 112, bicarbonate 32, BUN 1.13, lactic acidemia, as lactic acidosis is now down to 2.2. White blood cell count is elevated at 21.4, hemoglobin 14.2, platelet count 201. I reviewed the chest CT from 07/17/2020, as mentioned above; however, lung roque can be seen on the abdominal films that were obtained today, due to patient's complaints of abdominal pain. There is significant interstitial markings with sparing of the airway, acute respiratory distress syndrome (ARDS) like picture, noncardiogenic pulmonary edema. Ferritin remains elevated and has been actually going up over the past few days. C-reactive protein (CRP) is down to 2.54. IMPRESSION: 1. Severe hypoxic respiratory failure with high likelihood of , likely secondary to ARDS with recent COVID pneumonia. I believe the patient has most likely diffuse alveolar damage; however, we will continue to treat with broad spectrum antibiotics. I have added vancomycin for possible underlying sepsis due to the fact that she continues to be febrile. Leukocytosis is still present and worsening. She has been in the hospital for long enough where she could have incurred a hospital acquired infection, although one has not been identified. 2. Hypernatremic. I believe the patient is intervascularly volume depleted. Appears dry on exam. Has no edema. Would avoid hypertonic saline and at this point in time, encourage free water intake. 3. Leukocytosis with possible sepsis. Will obtain fungal culture. Have added oral vancomycin due to the possibility of Clostridium (C) difficile as the patient is having diarrhea. Even though Clostridium (C) difficile cultures have been negative, there is always a possibility this could be a false negative. 4. Atrial fibrillation versus MAT. Will obtain an EKG. Overall, I think it is likely multifactorial atrial tachycardia. Cardiology has been consulted by the primary team, therefore, I will defer management to them. I believe it is likely driven by hypoxia and will unlikely resolve unless hypoxia is improved. 5. Type 2 diabetes. Poorly controlled. I have increased Levemir to 30 twice a day. 6. Abdominal pain. Although abdominal CT scan was fairly unremarkable, I am obtaining amylase and lipase to ensure no evidence of acute pancreatitis. Overall, very poor prognosis. Severe hypoxic respiratory failure, likely from ARDS, especially in the face of wanting resuscitation, likelihood of survival is low.
[2020-07-29 23:25] LABS: AMYLASE 57 U/L (25-115); LIPASE 162 U/L (73-393)
[2020-07-30] VITALS (7 sets, daily range): BP systolic 99–154; BP diastolic 51–78
[2020-07-30] MEDS: MEROPENEM INJ 1 GM in IV 1 EA IV SCH ×2 (01:05→09:54)
[2020-07-30] MEDS: VANCOMYCIN ORAL SOL 250MG/5ML ORAL SYRINGE PO SCH ×3 (01:06→13:01)
[2020-07-30 04:55] LABS: HEMOGLOBIN 13.7 g/dl (12.0-15.5); MEAN CORPUSCULAR HEMOGLOBIN 28.8 pg (27.0-33.0); MEAN CORPUSCULAR HGB CONC 30.4 g/dl (32.0-36.5); MEAN CORPUSCULAR VOLUME 94.5 fl (80.0-96.0); PLATELET COUNT, AUTOMATED 156 10^3/uL (150-450); RED BLOOD COUNT 4.76 10^6/uL (4.00-5.40); WHITE BLOOD COUNT 25.8 10^3/uL (4.0-10.0)
[2020-07-30 05:05] LABS: FIBRINOGEN 410 MG/DL (221-452)
[2020-07-30 05:26] LABS: BLOOD UREA NITROGEN 55 MG/DL (7-18); C REACTIVE PROTEIN QUANTITATIV 1.38 MG/DL (0.00-0.30); CALCIUM LEVEL 7.6 MG/DL (8.8-10.2); CARBON DIOXIDE LEVEL 30 MEQ/L (21-32); CHLORIDE LEVEL 119 MEQ/L (98-107); CREATININE FOR GFR 0.81 MG/DL (0.55-1.30); FERRITIN 1590 NG/ML (8-252); GLOMERULAR FILTRATION RATE > 60.0 (>39); GLUCOSE, FASTING 78 MG/DL (70-100); POTASSIUM SERUM 3.6 MEQ/L (3.5-5.1); SODIUM LEVEL 154 MEQ/L (136-145)
[2020-07-30 05:35] LABS: D-DIMER QUANT > 4000 ng/ml (<500)
[2020-07-30] MEDS: HumaLOG INSULIN (NovoLOG) PER UNIT SC SCH (07:30)
[2020-07-30] MEDS ORDERED: VANCOMYCIN HCL 750 MG, VIAL MATE ADAPTER 1 EACH in D5W 250 ML IV SCH (08:00)
[2020-07-30] MEDS: ENOXAPARIN 100MG/1ML SYRINGE (J1650 PER 10MG) SC SCH (08:21)
[2020-07-30] MEDS: predniSONE 10 MG TAB PO SCH (08:22)
[2020-07-30] MEDS: OMEPRAZOLE 20 MG CAP PO SCH (08:22)
[2020-07-30] MEDS: DICLOFENAC EPOLAMINE 1.3 % PATCH TOP SCH (08:23)
[2020-07-30] MEDS ORDERED: D5W 1,000 ML IV SCH (08:30)
[2020-07-30] MEDS: ACETAMINOPHEN 500 MG TAB PO PRN (08:43)
[2020-07-30] MEDS ORDERED: bisoproloL fumarate 5 MG TAB PO SCH (09:00)
[2020-07-30] MEDS: LEVEMIR (INSULIN DETEMIR) 1 UNITS/0.01ML SC SCH (09:00)
[2020-07-30] MEDS ORDERED: DEXTROSE 50% 50 ML SYRINGE IV PRN (10:30)
[2020-07-30] MEDS ORDERED: GLUCOSE 4GM CHEW TABLET PO PRN (10:30)
[2020-07-30] MEDS ORDERED: GLUCAGON INJ 1MG VIAL SC PRN (10:30)
[2020-07-30 10:37] LABS: BLOOD UREA NITROGEN 51 MG/DL (7-18); CALCIUM LEVEL 7.5 MG/DL (8.8-10.2); CARBON DIOXIDE LEVEL 30 MEQ/L (21-32); CHLORIDE LEVEL 118 MEQ/L (98-107); CREATININE FOR GFR 0.83 MG/DL (0.55-1.30); GLOMERULAR FILTRATION RATE > 60.0 (>39); GLUCOSE, FASTING 141 MG/DL (70-100); POTASSIUM SERUM 4.4 MEQ/L (3.5-5.1); SODIUM LEVEL 155 MEQ/L (136-145)
--- NOTE | 2020-07-30 10:54 | IPNPDOC ---
Date Seen The patient was seen on 07/30/20. Progress Note SUBJECTIVE: Patient is a 74-year-old female with a PMHx of DM2, DLP, HTN, Anxiety / Depression who was initially admitted in medicine for hypoglycemia after a suicidal attempt with Tresiba insulin overdose. She was then discharged on the 07/15/20 to [facility] for suicidal ideations. She had a history of recent COVID infection, with 2 additional days remaining of her quarantine so was transferred back to medicine from [facility]. She was cleared by Psychiatry and as per them she did not need any sitter, she was depressed but not suicidal anymore. She also complained of some left-sided pleuritic back pain and a CT angiogram done did not show a PE. CT did reveal extensive bilateral peripheral ground-glass opacity pneumonia upper and lower lobes, c/w covid-19. She started becoming hypoxic on 07/16/20 which continued to worsen and subsequently she was moved to ICU on 07/18/20 for CPAP support. Patient saturating between 88 ad 92% on CPAP FiO2 80%. She has been having episodes of suspected MAT on cardiac monitoring, possible 2/2 hypoxia. Cardiology was consulted for assistance in management of suspected MAT (possibly underlying aflutter vs afib). Special Educator and car park attendant Dr. Hughes was consulted for assistance in management of acute hypoxic respiratory failure. Patient now suspected to have ARDS 2/2 covid-19 infection. Patient was seen and examined at the bedside. She remains on CPAP. Saturating 95%. Awake and alert. C/o L hip pain. Abdo pain has resolved. Reports SOB. Venancio es fevers, chills, CP, palpitations. OBJECTIVE PHYSICAL EXAMINATION: VITAL SIGNS: please see below General: on CPAP, tolerating mask HEENT: PERRLA, EOMI, sclerae clear Neck: supple, normal ROM, no JVD Respiratory: poor air entry bilaterally, no wheeze, no rales, mild crackles at lung bases CVS: RRR, normal S1, S2, no murmurs Abdo: soft, no masses, no hepatosplenomegaly, BS+, no rebound tenderness Extremities: no edema, pulses 2+ MSK: no joint deformities, normal ROM Neuro: no focal neuro deficits, moving all 4 extremities, CN2-12 intact. Strength 5/5 in all 4 extremities. No nystagmus. Psych: calm, cooperative, AAO x 3 LABORATORY DATA, IMAGING STUDIES, MICROBIOLOGY: Please see below. CTA Chest 07/17: No CT evidence of pulmonary embolus. Extensive bilateral peripheral ground-glass opacity pneumonia upper and lower lobes. Commonly reported imaging features of COVID-19 pneumonia are present. Other processes such as influenza pneumonia, drug toxicity, and connective tissue disease can produce a similar pattern. Vascular US 07/18: No evidence of deep venous thrombosis of the bilateral lower extremity femoral popliteal venous system. CXR 07/21: Bilateral extensive interstitial infiltrates and diffuse interstitial disease. Most pronounced in the left base. CXR 07/26: Progressive, now severe diffuse alveolar and interstitial opacification of the lung roque bilaterally. CT abdo pelvis with IV contrast (07/29/20): Small cyst right kidney. Post cholecystectomy, appendectomy, and hysterectomy. No acute abdominal abnormality. Scattered left colonic diverticulosis. Diffuse alveolar opacity in the lung roque DVT prophylaxis ordered?: full dose lovenox AC ASSESSMENT AND PLAN: Acute hypoxic respiratory failure - likely 2/2 ARDS 2/2 COVID19 pneumonia; possibly 2/2 superimposed bacterial infection - Currently on CPAP - Inflammatory markers labile D Dimer > 4000. CRP trended down. Ferritin 1700. Fibrinogen trended down. - COVID19 positive on 07/14/2020 - s/p Dexamethasone (11 days); will taper off with prednisone - s/p Remdesivir (10 day course) - s/p Ceftriaxone and Azithromycin (Completed a duration of 7 days) - c/w Meropenem (Day #5) - Vancomycin PO (day #2) added by Dr. Hughes for possible C diff given prolonged hospitalization. C diff screen neg, though could be false. - Special Educator recommendations reviewed and greatly appreciated - poor prognosis #Lactic acidosis - resolved #Leukocytosis with possible sepsis - WBC rising - Fungal cultures pending - Meropenem (Day #5) - Vancomycin PO (Day #2) for possible C diff #Hypernatremia - Free water deficit 4.2L - patient received NS boluses for suspected sepsis and Lactic acidosis on 07/29/20 - started on D5W at 125 cc/hr - BMP q4h - judicious use of IVF, given ARDS. #MAT vs Afib - Denies any chest pain, palpitations - Hemodynamically stable - TSH suppressed, but T4 normal range - will repeat in 3 weeks (likely as outpatient) - Troponin x 2 negative - Not captured on EKG - d/w Dr. Hernandez, increased bisoprolol to 5 mg BID - cardiology consult placed, recommendations greatly appreciated - reviewed ECHO from 07/18/20 - c/w full anticoagulation with Lovenox - c/w telemetry monitoring Blood cultures (1 of 2) positive - likely 07/15 contaminant 07/15 Micrococcus luteus - Hemodynamically stable / Afebrile - Blood cultures 07/18: (1 of 2): Micrococcus luteus - Blood cultures 07/22: Negative at 72 hours s/p Acute metabolic encephalopathy / Possible delirium - likely 07/15 hypoxia and COVID19 infection and hospitalization Prolonged QTC - EKG with improvement of QTc - ECHO compete 07/18: Grade 1 DD - s/p QTC prolonging medications s/p Hypokalemia s/p Suicidal ideation - Was cleared by Psychiatry; not actively suicidal at present - s/p Beside sitter - s/p Sertraline (re; QTc Prolongation) DM2 with hyperglycemia, s/p hypoglycemia - s/p hypoglycemia after suspected Tresiba overdose - c/w ISS - c/w Levemir BID; will adjust again in 24 hours HTN - BP well controlled - DC quinapril per Dr. Hernandez recommendations. - c/w Doxazosin, Bisoprolol, HCTZ DLP - c/w Atorvastatin GI prophylaxis - c/w Omeprazole DVT prophylaxis - D-dimers remain elevated - c/w Lovenox; weight-based therapeutic dosing Disposition: - Awaiting clinical improvement - I called patient's Crescencio Metzger (tel: [phone]) and updated as to progress. - Question of who is the healthcare proxy, he referred me to his 's niece Jas Trejo. - Clarified with Mrs. Trejo by telephone [phone]. She has a copy of a form completed in the past indicating that patient's Crescencio Metzger is the primary healthcare proxy and if unable to perform that duty then Jas Trejo, the niece would be the alternate healthcare proxy. - explained poor prognosis and answered all questions Code status: - DNR / DNI - Poor prognosis VS, I&O, 24H, [facility] Vital Signs/I&O Vital Signs Date Time Temp Pulse Resp B/P (MAP) Pulse Ox O2 Delivery O2 Flow Rate FiO2 07/30/20 08:22 96 154/78 07/30/20 08:00 97.3 30 95 NIPPV (BIPAP/CPAP) 85 07/28/20 20:10 40.0 I&O- Last 24 Hours up to 6 AM 07/30/20 05:59 Intake Total 4670 ml Output Total 1390 ml Balance 3280 ml Laboratory Data 24H LABS Laboratory Tests 2 07/29/20 12:04: Bedside Glucose (Misc Panel) 423H 07/29/20 13:10: Lactic Acid Level 3.3*H 07/29/20 17:40: Bedside Glucose (Misc Panel) 323H 07/29/20 17:42: Lactic Acid Followup at 4 Hours 2.2*H 07/29/20 19:56: Bedside Glucose (Misc Panel) 255H 07/29/20 20:36: Blood Gas Bicarbonate Standard 26.5H, Arterial Blood pH 7.402, Arterial Blood Partial Pressure CO2 45.4H, Arterial Blood Partial Pressure O2 69.8L, Arterial Blood Total CO2 29.0, Arterial Blood HCO3 27.6H, Arterial Blood Base Excess 2.3H, Arterial Blood Oxygen Saturation 93.3L 07/29/20 22:45: Lactic Acid Level 1.9, Amylase Level 57, Lipase 162 07/30/20 04:46: Nucleated Red Blood Cells % (auto) 0.0, Fibrinogen 410, D-Dimer, Quantitative > 4000H, Anion Gap 5L, Glomerular Filtration Rate > 60.0, Calcium Level 7.6L, Ferritin 1590H, C-Reactive Protein, Quantitative 1.38H 07/30/20 09:48: CBC/BMP Laboratory Tests 07/30/20 04:46 Microbiology Microbiology 07/29/20 Yeast/Fungus Identification, Received Pending 07/28/20 Blood Culture - Preliminary, Resulted No growth after 24 hours . All specim... 07/28/20 Blood Culture - Preliminary, Resulted No growth after 24 hours . All specim... 07/22/20 Blood Culture - Final, Complete NO GROWTH AFTER 5 DAYS 07/22/20 Blood Culture - Final, Complete NO GROWTH AFTER 5 DAYS JEFRY OSMAN MD Jul 30, 2020 10:54
[2020-07-30] MEDS ORDERED: HumaLOG INSULIN (NovoLOG) PER UNIT SC SCH (12:00)
--- NOTE | 2020-07-30 12:16 | CCN ---
PULMONARY CRITICAL CARE NOTE DATE: 07/30/2020 CRITICAL CARE TIME: 1 hour 31 minutes. This excludes all procedures. SUBJECTIVE: Overnight, Tova had her reported atrial fibrillation with rapid ventricular response, was given diltiazem. Oxygen saturations slightly better this morning. Currently on continuous positive airway pressure (CPAP) of 14, 95% on 0. 85 FiO2. Tidal volumes being obtained of around 600-700 on CPAP. Patient is DO NOT RESUSCITATE (DNR)/DO NOT INTUBATE (DNI). Patient had severe hypoxia, as mentioned in my initial consultation, for quite some time status post COVID infection, now with what appears to be acute respiratory distress syndrome (ARDS). Patient is more hypernatremic today, likely has free water deficit. This has been calculated by the primary team and careful hydration has been initiated with recurrent testing of sodium. Patient remains on antibiotics and steroids; however, I believe prognosis is extremely guarded. PHYSICAL EXAMINATION: Temperature 97.3, pulse 96, respiratory rate 30, blood pressure 154/78, oxygen saturation 95% on 0.85 FiO2. GENERAL: Sleeping upon my entering the room. Moves extremities, but otherwise does not arouse or answer my questions. Patient did sit at bedside with physical therapy today, reportedly after that was "exhausted." HEENT: Sclerae clear and anicteric. Pupils clear and react to light. Mucous membranes aer more moist. Neck is supple. No tracheal deviation or mass. LYMPH NODES: Cervical, supraclavicular and axillary adenopathy. CARDIAC: Regular S1, S2 without audible murmur, rub or gallop. Frequent ectopy. PULMONARY: Fairly clear anteriorly. Posteriorly, bibasilar rales, but no rhonchi, wheeze or dullness to percussion. ABDOMEN: Obese. Soft, nontender, nondistended. No hepatosplenomegaly, masses or hernias. EXTREMITIES: No clubbing, cyanosis or edema. SKIN: Pale without rashes, jaundice or bruising. LABORATORY EVAULATION: Sodium 155, potassium 4.4, chloride 118, bicarbonate 30, BUN 51, creatinine 0.83. Arterial blood gas shows a pH of 7.40, pCO2 of 45, PaO2 of 70 with a D-dimer greater than 4000. No new chest imaging; however, some of the lung roque could be seen on abdominal films, as mentioned yesterday. There appears to be diffuse interstitial infiltrate consistent with ARDS. IMPRESSION: 1. Severe hypoxic respiratory failure. Patient currently on steroids, antibiotics at this point in time. I believe this is likely secondary to severe ARDS. Prognosis is extremely guarded. 2. Hypernatremia. Agree with gentle hydration. This is very difficult in the face of severe hypoxia in a patient who likely has underlying at least diastolic dysfunction. Her oxygen saturation and sodium will be monitored carefully. She does appear to be free water deficient and intervascularly depleted. 3. Fever and leukocytosis. This is being covered with broad spectrum antibiotics and possible Clostridium (C) difficile even if Clostridium (C) difficile cultures have been negative. Other than the history of COVID, no focal source of sepsis. However, given the severity of her disease, antibiotics are continued. 4. Deep venous thrombosis (DVT) prophylaxis. Patient on full dose Lovenox. 5. Gastrointestinal (GI) prophylaxis. Is on Prilosec. Prognosis remains extremely guarded. I believe the patient has a high likelihood of .
[2020-07-30 14:09] LABS: RSV AMPLIFICATION NEGATIVE (NEGATIVE)
[2020-07-30 14:19] LABS: CALCIUM LEVEL 7.8 MG/DL (8.8-10.2); CREATININE FOR GFR 1.07 MG/DL (0.55-1.30); GLOMERULAR FILTRATION RATE 53.2 (>39); POTASSIUM SERUM 4.1 MEQ/L (3.5-5.1)
[2020-07-30] MEDS ORDERED: FLEET ENEMA PR PRN (15:00)
[2020-07-30] MEDS ORDERED: MORPHINE 2 MG/ML 1ML VIAL (J2270) IV PRN (15:00)
[2020-07-30] MEDS ORDERED: BISACODYL 10 MG SUPP PR PRN (15:00)
[2020-07-30] MEDS ORDERED: HYOSCYAMINE SULFATE 0.125 MG SUBL TABLET PO PRN (15:00)
[2020-07-30] MEDS ORDERED: MORPHINE 10MG/0.5ML ORAL CONCENTRATE SOLUTION U/D SL PRN (15:00)
[2020-07-30] MEDS ORDERED: LORazepam 2 MG/ML VIAL IV PRN (15:00)
[2020-07-30] MEDS ORDERED: ACETAMINOPHEN 650 MG SUPP PR PRN (15:00)
[2020-07-30] MEDS ORDERED: ONDANSETRON 4MG/2ML VIAL IV PRN (15:00)
[2020-07-30] MEDS ORDERED: SCOPOLAMINE 1MG TRANSDERMAL PATCH TOP PRN (15:00)
[2020-07-30] MEDS ORDERED: ATROPINE SULFATE 1% OP SOLN 2 ML BTL SL PRN (15:00)
--- NOTE | 2020-09-01 00:16 | DS.PDOC ---
Discharge Summary General Date of Admission Jul 16, 2020 at 18:32 Date of Discharge 07/30/20 Discharge Summary PROCEDURES PERFORMED DURING STAY: [None]. ADMITTING DIAGNOSES: COVID-19 infection with hypoxia Left lower back pain Hypokalema Hx of Suicidal ideation DM2 with hypoglycemia HTN HLD DISCHARGE DIAGNOSES: COVID-19 infection with hypoxia Acute hypoxic respiratory failure Lactic acidosis ARDS MAT vs afib Hypernatremia Prolonged qtc Left lower back pain Hypokalema Hx of Suicidal ideation DM2 with hypoglycemia HTN HLD COMPLICATIONS/CHIEF COMPLAINT: Hypoxia,Covid. HISTORY OF PRESENT ILLNESS: 74-year-old female with a history of diabetes type 2, hyperlipidemia, hypertension, anxiety and depression was admitted to [facility] on 07/14/2020. She had several episodes of hypoglycemia related to suspected overdose of CIBA. She has a history of recent COVID infection, with 2 additional days remaining of her quarantine. Patient developed hypoxia and was transferred to the COVID unit as she required supplemental oxygen. She also complained of some left-sided pleuritic back pain and a CT angiogram was ordered, which the patient had initially refused. HOSPITAL COURSE: She was cleared by Psychiatry and as per them she did not need any sitter, she was depressed but not suicidal anymore. She also complained of some left-sided pleuritic back pain and a CT angiogram done did not show a PE. CT did reveal extensive bilateral peripheral ground-glass opacity pneumonia upper and lower lobes, c/w covid-19. She started becoming hypoxic on 07/16/20 which continued to w orsen and subsequently she was moved to ICU on 07/18/20 for CPAP support. Patient saturating between 88 ad 92% on CPAP FiO2 80%. She has been having episodes of suspected MAT on cardiac monitoring, possible 2/2 hypoxia. Cardiology was consulted for assistance in management of suspected MAT (possibly underlying aflutter vs afib). Curtain Fitter and coding compliance manager Dr. Hughes was consulted for assistance in management of acute hypoxic respiratory failure. Patient suspected to have ARDS 2/2 covid-19 infection. Remained severly hypoxic on CPAP. Given guarded prognosis, family chose for TAR ROOFER. Acute hypoxic respiratory failure - likely 2/2 ARDS 2/2 COVID19 pneumonia; possibly 2/2 superimposed bacterial infection - Inflammatory markers labile D Dimer > 4000. CRP trended down. Ferritin 1700. Fibrinogen trended down. - COVID19 positive on 07/14/2020 - s/p Dexamethasone (11 days); taper off with prednisone - s/p Remdesivir (10 day course) - s/p Ceftriaxone and Azithromycin (Completed a duration of 7 days) - Meropenem (Day #5) - Vancomycin PO (day #2) added by Dr. Hughes for possible C diff given prolonged hospitalization. C diff screen neg, though could be false. - Curtain Fitter recommendations reviewed and greatly appreciated - poor prognosis - family chose for TAR ROOFER status given grave prognosis #Lactic acidosis - resolved #Leukocytosis with possible sepsis - WBC rising - Fungal cultures pending - Meropenem (Day #5) - Vancomycin PO (Day #2) for possible C diff #Hypernatremia - Free water deficit 4.2L - patient received NS boluses for suspected sepsis and Lactic acidosis on 07/29/20 - started on D5W at 125 cc/hr - BMP q4h - judicious use of IVF, given ARDS. #MAT vs Afib - Denies any chest pain, palpitations - TSH suppressed, but T4 normal range - Troponin x 2 negative - Not captured on EKG - d/w Dr. Hernandez, increased bisoprolol to 5 mg BID - cardiology consult placed, recommendations greatly appreciated - reviewed ECHO from 07/18/20 - c/w full anticoagulation with Lovenox - c/w telemetry monitoring Blood cultures (1 of 2) positive - likely 2/2 contaminant 2/2 Micrococcus luteus - Blood cultures 07/18: (1 of 2): Micrococcus luteus - Blood cultures 07/22: Negative at 72 hours Acute metabolic encephalopathy / Possible delirium - likely 2/2 hypoxia and COVID19 infection and hospitalization Prolonged QTC - EKG with improvement of QTc - ECHO compete 07/18: Grade 1 DD - s/p QTC prolonging medications s/p Hypokalemia s/p Suicidal ideation - Was cleared by Psychiatry; - s/p Beside sitter - s/p Sertraline (re; QTc Prolongation) DM2 with hyperglycemia, s/p hypoglycemia - s/p hypoglycemia after suspected Tresiba overdose - c/w ISS - c/w Levemir BID; will adjust again in 24 hours HTN - DC quinapril per Dr. Hernandez recommendations. - Doxazosin, Bisoprolol, HCTZ DLP - c/w Atorvastatin GI prophylaxis - c/w Omeprazole DVT prophylaxis - D-dimers remain elevated - c/w Lovenox; weight-based therapeutic dosing Disposition: - Awaiting clinical improvement - I called patient's Crescencio Metzger (tel: [phone]) and updated as to progress. - Question of who is the healthcare proxy, he referred me to his 's niece Jas Trejo. - Clarified with Mrs. Trejo by telephone [phone]. She has a copy of a form completed in the past indicating that patient's Crescencio Metzger is the primary healthcare proxy and if unable to perform that duty then Jas Trejo, the niece would be the alternate healthcare proxy. - explained poor prognosis and answered all questions - family decided for TAR ROOFER status. New MOLST signed and witnessed. DISCHARGE MEDICATIONS: Please see below. ALLERGIES: Please see below. PHYSICAL EXAMINATION ON DISCHARGE: Patient . No pulses were palpated at the carotids. No cardiac or breath sounds heard on auscultation of entire precordium. No corneal reflex present. No reflexes present. LABORATORY DATA: Please see below. IMAGING: CT abdo pelvis (07/29/20): Small cyst right kidney. Post cholecystectomy, appendectomy, and hysterectomy. No acute abdominal abnormality. Scattered left colonic diverticulosis. Diffuse alveolar opacity in the lung roque. CXR (07/21/20): Bilateral extensive interstitial infiltrates and diffuse interstitial disease. Most pronounced in the left base. Venous duplex bilateral LE (07/18/20): No evidence of deep venous thrombosis of the bilateral lower extremity femoral popliteal venous system CT angiogram chest (07/17/20): No CT evidence of pulmonary embolus. Extensive bilateral peripheral ground-glass opacity pneumonia upper and lower lobes. Commonly reported imaging features of COVID 19 pneumonia are present. Other processes such as influenza pneumonia, drug toxicity, and connective tissue disease can produce a similar pattern. This study was apparently acquired at 1:26 p.m.. It is presented to me for interpretation at 4:50 p.m.. The reason for this delay is unknown to me. DISPOSITION: 20 . TIME SPENT ON DISCHARGE: 25 minutes Discharge Medications Scheduled Atorvastatin Calcium (Atorvastatin Calcium) 40 Mg Tablet, 40 MG PO QHS, (R eported) Bisoprolol Fumarate (Bisoprolol Fumarate) 5 Mg Tablet, 5 MG PO DAILY, (Reported) Doxazosin Mesylate (Doxazosin) 4 Mg Tablet, 4 MG PO DAILY, (Reported) Empagliflozin (Jardiance) 10 Mg Tablet, 10 MG PO DAILY, (Reported) Hydrochlorothiazide (Hydrochlorothiazide) 25 Mg Tablet, 25 MG PO DAILY, (Reported) Omeprazole (Omeprazole) 40 Mg Capsule.dr, 40 MG PO DAILY, (Reported) Quinapril Hcl (Accupril) 40 Mg Tablet, 60 MG PO DAILY, (Reported) Sertraline HCl (Sertraline HCl) 25 Mg Tablet, 25 MG PO QHS, (Reported) Allergies Coded Allergies: No Known Allergies (Unverified , 07/13/20) JEFRY OSMAN MD Sep 01, 2020 00:16
== END 2020-07-30 16:41 | disposition expired | DRG 177 ==
LOC: M 4MAIN 18:32 → M ICU 07-18 15:23
PROVIDERS: ADMIT Family Medicine; ATTEND Family Medicine
PROC: 3E0333Z Introduction of Anti-inflammatory into Peripheral Vein, Percutaneous Approach (ICD-10-PCS; principal; 2020-07-18)
PROC: XW033E5 Introduction of Remdesivir Anti-infective into Peripheral Vein, Percutaneous Approach, New Technology Group 5 (ICD-10-PCS; 2020-07-18)
DX: U07.1 COVID-19 (principal); J96.01 Acute respiratory failure with hypoxia; G93.41 Metabolic encephalopathy; J15.9 Unspecified bacterial pneumonia; J12.82 Pneumonia due to coronavirus disease 2019; A41.9 Sepsis, unspecified organism; R45.851 Suicidal ideations; E87.2 Acidosis; I47.1 Supraventricular tachycardia; E87.0 Hyperosmolality and hypernatremia; E87.6 Hypokalemia; E11.649 Type 2 diabetes mellitus with hypoglycemia without coma; Z66 Do not resuscitate; Z51.5 Encounter for palliative care; M54.5 Low back pain; I48.91 Unspecified atrial fibrillation; I10 Essential (primary) hypertension; E11.65 Type 2 diabetes mellitus with hyperglycemia; E78.5 Hyperlipidemia, unspecified; F41.9 Anxiety disorder, unspecified; F32.9 Major depressive disorder, single episode, unspecified; E87.70 Fluid overload, unspecified; R94.31 Abnormal electrocardiogram [ECG] [EKG]; Z91.5 Personal history of self-harm; Z79.899 Other long term (current) drug therapy; Z79.4 Long term (current) use of insulin